=== PATIENT | male | born 1945 | race Caucasian/White ===

== ENCOUNTER 2024-11-08 13:56 | Emergency (ER) | payer MEDICARE, SELFPAY ==
--- NOTE | 2024-11-08 14:00 | CT_ITS ---
PROCEDURE: BRAIN/HEAD WITHOUT CONTRAST 11/08/2024 REASON FOR EXAM: TRAUMA TECHNIQUE: BRAIN/HEAD WITHOUT CONTRAST Coronal and Sagittal reconstruction series were provided. One or more dose reduction techniques were used (e.g., Automated exposure control, adjustment of the mA and/or kV according to patient size, use of iterative reconstruction technique. RADIATION DOSE SUMMARY: DLP: 847 mGycm COMPARISON: None FINDINGS: There is no acute infarct, intracranial hemorrhage, or mass effect. There is no hydrocephalus or significant midline shift. There is mild chronic microvascular ischemic changes and mild parenchymal volume loss. No acute, depressed calvarial fractures. Mild right anterior frontal scalp contusion. CT/Brain/Head without Contrast IMPRESSION: No acute intracranial process. Reading Location: [id number]
[2024-11-08 14:03] VITALS: BP 140/62; PULSE 55; RESP 16; TEMP 36.5; O2SAT 98
[2024-11-08 14:45] VITALS: BP 128/68; PULSE 55; RESP 18; O2SAT 100
[2024-11-08 15:02] VITALS: BP 127/62; PULSE 53; RESP 16; O2SAT 99
[2024-11-08 16:00] VITALS: BP 146/74
--- OUTSIDE RECORDS SUMMARY | 2024-11-08 16:00 | XMS RPT_ITS | CCD ---
Author Organization [facility] ion [facility] Care Team Providers Care Objective C Developer Name Role Phone Unavailable Primary Care Provider Unavailabl e Fidencio DO, [facility] Stevenson Primary Care Provid er Fidencio DO, [facility] Primary Care Provider [facility] Provid er Fidencio DO, [facility] Primary Care Provid er Fidencio DO, Eric Stevenson Unavailable [facility] UCON STEVENSON Referring Unavai labmele NICOLAS, UCON STEVENSON Primary Care Unavai lable Fidencio DO, [facility] Stevenson Primary Care Provid er Fidencio DO, [facility] Primary Care Provider [phone] [facility] Primary Care Provider Mark Albarran Primary Care Provider [facility] Primary Care Provider GUSTAVO AZAR Attending Unavailable MARK ALBARRAN Primary Care Unavailable [facility] Primary Care Unavailable GUSTAVO AZAR Referring Unavailable LORETTA JOHNSON Admitting Unavailable LORETTA JOHNSON Attending Unavailable TEMITOPE ARREOLA Consulting Unavailable WERO SANCHEZ Consulting Unavailable GUSTAVO AZAR Attending Unavailable GUSTAVO AZAR Referring Unavailable MARK ALBARRAN Primary Care Unavailable [facility] ERIC Attending Unavailable [facility] Referring Unavailable [facility] UCON Primary Care Unavailable MARLENE VEGA Attending Unavailable [facility] Primary Care Unavailable MICHAEL MINOR Attending Unavailable [facility] Unavailable MICHAEL MINOR Attending Unavailable [facility] Unavailable MARLENE VEGA Attending Unavailable MARK ALBARRAN Primary Care Unavailable [facility] STEVENSON Attending [facility] Oskar NICOLAS UCON STEVENSON Attending Oskar NICOLAS [facility] STEVENSON Primary Care Oskar priest Allergies Allergy Classification Reported Allergen(s) Allergy Type Date of Onset Reaction(s) Facility Bee pollen (3 sources) Bee pollen Drug Allergy 9 [facility] (20 sources) Bee pollen; Translations: [BEE POLLEN] Drug Allergy 9 [facility] Work Phone: (20 sources) Venom-Honey Bee; Translations: [VENOM-HONEY BEE] Drug Allergy 9 [facility] Work Phone: (20 sources) Covid-19 Vacc,Mrna(Pfize r)(Pf); Translations: [COVID-19 VACC,MRNA(PFIZE R)(PF)] Drug Intolerance 2 Intolerance, Myalgia [facility] (8 sources) Bee pollen Allergy to substance 9 [facility] Medications Current Medications Medication Drug Class(es) Dates Sig (Normalized) Sig (Original) acetaminophen 500 mg oral tablet (19 sources) Start: 01-31-2024 End: 02-10-2024 take 1000 mg by mouth every eight hours Start: 01-23-2024 End: 01-31-2024 take 1 tablet by mouth every eight hours Start: 01-18-2024 take 1 tablet by mk th every six hours as needed for pain acetaminophen (Tylenol) tablet 650 mg acetaminophen (T YLENOL ORAL) Take by mouth. 2 po q 8 hours Active amiodarone hydrochloride 200 mg oral tablet (20 sources) Antiarrhythmic Start: 01-28-2024 End: 11-06-2024 take 1 tablet by mouth once daily amiodarone (PACERONE) 200 mg tablet Take 1 tablet by mouth once daily. 30 tablet 08/08/2024 Active Start: 01-27-2024 End: 01-28-2024 Start: 01-26-2024 End: 01-27-2024 Start: 01-25-2024 End: 01-25-2024 Start: 01-25-2024 End: 01-25-2024 amLODIPine 5 mg oral tablet (20 sources) Dihydropyridine [address] Start: 09-08-2024 End: 09-08-2025 take 0.5 tablet by mouth once daily amLODIPine (NORVASC) 5 mg tablet Indications: Benign essential hypertension Take 0.5 tablets by mouth once daily. 45 tablet 3 09/08/2024 09/08/2025 Active Start: 01-29-2024 End: 01-31-2025 take 1 tablet by mouth once daily amLODIPine (NORVASC) 2.5 mg tablet Take 1 tablet by mouth once daily. 30 tablet 08/08/2024 Active Start: 01-24-2024 End: 01-26-2024 Start: 06-28-2020 End: 08-08-2024 take 1 tablet by mouth once daily amLODIPine (NORVASC) 5 mg tablet Indications: Benign essential hypertension Take 1 tablet by mouth once daily. 90 tablet 3 05/15/2023 08/08/2024 Discontinued (Course of therapy completed) take 1 tablet by mk th once daily amLODIPine (NORVASC) 5 MG tablet amlodipine 5 mg tablet TAKE 1 TABLET BY MOUTH EVERY DAY 0 Active Comment on above: Take 1 tablet by mk th once daily. aspirin 81 mg chewable tablet (20 sources) Platelet Aggregation Inhibitor, Nonsteroidal Anti-inflammatory Drug Start: 09-02-2024 End: 09-02-2025 aspirin 81 MG chewable tablet Chew 1 tablet (81 mg) daily. 09/02/2024 09/02/2025 Active Start: 01-17-2024 End: 01-29-2024 Start: 01-17-2024 End: 01-17-2024 take 324 mg by mouth once 324 mg, Oral, Once, On [place] at 2345, For 1 dose End: 11-13-2022 take 1 tablet by mouth once daily aspirin, enteric coa jose (ASPIRIN, ENTERIC COATED) 81 mg EC tablet Take 81 mg by mouth once daily. Active take 1 tablet by mouth once tan y aspirin 81 MG tablet Take 81 mg by mouth daily 0 Active Comment on above: Take 81 mg by mouth. clopidogrel 75 mg oral tablet (20 sources) [id number] Platelet Inhibitor Start: End: take 1 tablet by mouth once daily clopidogrel (PLAVIX) 75 mg tablet Take 1 tablet by mouth once daily. 30 tablet 08/08/2024 Active gabapentin 400 mg oral capsule (20 sources) Anti-epileptic Agent Start: End: take 1 capsule by mouth twice daily gabapentin (NEURONTIN) 400 mg capsule Take 1 capsule by mouth two times a day for 30 days. 60 capsule 08/08/2024 Active Start: 01-19-2024 take 200 mg by mouth once 200 mg, Oral, Once, On 01/19/24 at 0030, For 1 dose Start: 01-19-2024 Start: 01-19-2024 take 100 mg by mouth once 100 mg, Oral, Once, On 01/19/24 at 0015, For 1 dose Start: 12-18-2023 End: 01-31-2024 Start: 12-11-2022 End: 08-08-2024 take 2 capsules by mouth twice daily gabapentin (Neurontin) 300 MG capsule Take 600 mg by mouth 2 times daily. 12/18/2023 Active Start: 07-13-2020 End: 04-05-2023 take 1 capsule by mouth in the morning, then take 1 capsule by mouth at lunch, then take 2 capsules by mouth in the evening gabapentin (NEURONTIN) 300 mg capsule TAKE 1 CAPSULE IN THE MORNING , 1 CAPSULE AT LUNCH , AND 2 CAPSULES BY MOUTH IN THE EVENING 360 capsule 1 06/26/2022 04/05/2023 Active Start: 06-28-2020 End: 09-26-2020 gabapentin (NEURONTIN) 300 m g capsule Take 4 capsules by mouth once daily for 90 days. One PO in AM, one at noon, two PO in PM, and 1 every day PRN 360 capsule 3 06/28/2020 07/13/2020 Discontinued Start: 11-27-2018 gabapentin (NE URONTIN) 300 MG capsule Comment on above: Take 4 capsules by m outh once daily for 90 days. One PO in AM, one at noon, two PO in PM, and 1 every day PRN TAKE 1 CAPSULE IN MORNING , ONE CAPSULE AT LUNCH , AND 2 CAPSULES BY MOUTH IN THE EVENING One am one lunch 2 e vening TAKE 1 CAPSULE IN TH E MORNING , 1 CAPSULE AT LUNCH , AND 2 CAPSULES BY MOUTH IN THE EVENING TAKE 2 CAPSULES IN T HE MORNING AND 2 CAPSULES BY MOUTH IN THE EVENING 24 hr glycine 25 mg / isoleucine 50 mg / ubidecarenone 100 mg extended release oral tablet (1 source) [id number] eucine -Glycine (CO Q-10) 100-50-25 MG TB24 Take by mouth 0 Active levothyroxine sodium 0.1 mg oral tablet (20 sources) l-Thyroxine Start: End: take 1 tablet by mouth once daily levothyroxine (SYNTHROID) 100 mcg tablet Indications: Acquired hypothyroidism Take 1 tablet by mouth once daily. 30 tablet 08/08/2024 Active Start: 01-06-2019 levothyroxine (SYNTHROID) 100 MCG tablet Comment on above: Take 1 tablet by mk th once daily. loratadine 10 mg oral tablet (17 sources) Start: 08-08-2024 End: 11-06-2024 take 1 tablet by mouth once daily loratadine (CLARITIN) 10 mg tablet Take 1 tablet by mouth once daily. 90 tablet 08/08/2024 11/06/2024 Active metoprolol tartrate 25 mg oral tablet (20 sources) beta-Adrenergic Rd Start: 01-31-2024 End: 08-08-2024 metoprolol tartrate, short acting, (LOPRESSOR) 25 mg tablet Take 12.5 mg by mouth two times a day. 01/31/2024 08/08/2024 Discontinued Start: 01-25-2024 Start: 01-25-2024 Start: 01-25-2024 End: 01-30-2025 take 0.5 tablet by mouth twice daily metoprolol tartrate, short acting, (LOPRESSOR) 25 mg tablet Take 0.5 tablets by mouth two times a day. 30 tablet 08/08/2024 Active Start: 01-18-2024 End: 01-23-2024 Start: 06-28-2020 End: 08-08-2024 take 1 tablet by mouth once daily metoprolol succinate ER (TOPROL XL) 100 mg Indications: Benign essential hypertension Take 1 tablet by mouth once daily. 90 tablet 3 05/15/2023 08/08/2024 Discontinued (Course of therapy completed) Start: 01-06-2019 metoprolol suc cinate (TOPROL XL) 100 MG extended release tablet Comment on above: Take 1 tablet by mk th once daily. nirmatrelvir tablet 300 mg (150 mg x 2) and ritonavir tablet 100 mg in a dose pack (PAXLOVID) (3 sources) Start: 09-11-2023 End: 09-16-2023 nirmatrelvir tablet 300 mg (150 mg x 2) and ritonavir tablet 100 mg in a dose pack (PAXLOVID) Administer TWO pink nirmatrelvir 150 mg tablets and ONE white ritonavir 100 mg tablet for a total of three tablets twice daily. 30 tablet 0 09/11/2023 09/16/2023 Active Start: 09-11-2023 End: 09-11-2023 nirmatrelvir tablet 300 mg ( 150 mg x 2) and ritonavir tablet 100 mg in a dose pack (PAXLOVID) Administer TWO pink nirmatrelvir 150 mg tablets and ONE white ritonavir 100 mg tablet for a total of three tablets twice daily. 30 tablet 0 09/11/2023 09/11/2023 Discontinued Comment on above: Administer TWO pink nirmatrelvir 150 mg tablets and ONE white ritonavir 100 mg tablet for a total of three tablets twice daily. omega-3 acid ethyl esters (group home) 1000 mg oral capsule (1 source) [place]-3 1000 MG CAPS Take by mouth 0 Active ondansetron ODT (Zofran-ODT) disintegrating tablet 4 mg (2 sources) Start: take 1 tablet by mouth every eight hours as needed for nausea and vomiting ondansetron ODT (Zofran-ODT) disintegrating tablet 4 mg oxyCODONE hydrochloride 5 mg oral tablet (2 sources) Opioid Agonist Start: End: pantoprazole 40 mg delayed release oral tablet (20 sources) Proton Pump Inhibitor Start: End: take 1 tablet by mouth once daily pantoprazole DR (PROTONIX) 40 mg tablet Take 1 tablet by mouth once daily. 30 tablet 08/08/2024 Active Start: 01-24-2024 End: 01-24-2024 Start: 01-19-2024 pantoprazole ( ProtoNix) EC tablet 40 mg rosuvastatin calcium 40 mg oral tablet (20 sources) HMG-CoA Reductase Inhibitor Start: 02-01-2024 End: 01-31-2025 take 1 tablet by mouth once daily rosuvastatin (CRESTOR) 40 mg tablet Take 1 tablet by mouth once daily. 30 tablet 08/08/2024 Active Start: 01-24-2024 End: 01-31-2024 Start: 09-26-2013 take 1 tablet by mk th once daily rosuvastatin (CRESTOR) 10 MG tablet Crestor 10 mg tablet Take 1 tablet every day by oral route for 90 days. 0 09/26/2013 Active Completed/Discontinued Medications Medication Drug Class(es) Dates Sig (Normalized) Sig (Original) acetaminophen 325 mg / HYDROcodone bitartrate 7.5 mg oral tablet (2 sources) Opioid Agonist Start: 05-09-2021 End: 05-16-2021 take 1 tablet by mouth every six hours as needed for pain HYDROcodone-Acetami nophen (NORCO) 7.5-325 mg per tablet Indications: Cervical radiculopathy Take 1 tablet by mouth every 6 hours as needed for pain for up to 7 days. 28 tablet 0 05/09/2021 05/16/2021 Start: 04-25-2021 End: 05-02-2021 take 1 tablet by mouth every six hours as needed for pain HYDROcodone-Acetaminophen (NORCO) 7.5-32 5 mg per tablet Indications: Cervical radiculopathy Take 1 tablet by mouth every 6 hours as needed for pain for up to 7 days. 28 tablet 0 04/25/2021 05/02/2021 Comment on above: Take 1 tablet by mk th every 6 hours as needed for pain for up to 7 days. 20 ml albumin human, group home 250 mg/ml injection (8 sources) Human Serum Albumin Start: 01-23-2024 End: 01-23-2024 Start: 01-23-2024 End: 01-24-2024 albuterol 0.833 mg/ml / ipratropium bromide 0.167 mg/ml inhalation solution (2 sources) Anticholinergic, beta2-Adrenergic Agonist Start: 01-23-2024 End: 01-31-2024 apixaban 5 mg oral tablet (14 sources) Factor Xa Inhibitor Start: 01-29-2024 End: 09-02-2024 take 1 tablet by mouth twice daily apixaban (Eliquis) 5 MG tablet Take 1 tablet (5 mg) by mouth 2 times daily. 0 01/31/2024 09/02/2024 Discontinued (Therapy completed) aspirin 81 mg / calcium carbonate 777 mg oral tablet (5 sources) Platelet Aggregation Inhibitor, Nonsteroidal Anti-inflammatory Drug End: 12-28-2020 aspirin-calcium carbonate 81 mg-300 mg calcium(777 mg) tab Take 81 mg by mouth. 0 12/28/2020 Discontinued (Course of therapy completed) Comment on above: Take 81 mg by mouth. atorvastatin 80 mg oral tablet (4 sources) HMG-CoA Reductase Inhibitor Start: 01-18-2024 End: 01-23-2024 calcium chloride 0.0014 meq/ml / potassium chloride 0.004 meq/ml / sodium chloride 0.103 meq/ml / sodium lactate 0.028 meq/ml injectable solution (4 sources) Start: 01-23-2024 End: 01-26-2024 100 ml calcium gluconate 20 mg/ml injection (2 sources) Start: 01-23-2024 End: 01-31-2024 castor oil 0.788 mg/mg / mexican balsam 0.087 mg/mg topical ointment (3 sources) Standardized Chemical Allergen End: 04-28-2024 Balsam Brady-Calvin Oil (Venelex) ointment Apply topically every 12 hours. 04/28/2024 Discontinued (Med list cleanup) ceFAZolin 2000 mg injection (2 sources) Cephalosporin Antibacterial Start: 01-23-2024 End: 01-25-2024 take 2000 mg intravenously every eight hours chlorhexidine gluconate 1.2 mg/ml mouthwash (4 sources) Start: 01-22-2024 End: 01-26-2024 cholecalciferol 0.125 mg oral tablet (20 sources) Vitamin D End: 08-08-2024 take 1 tablet by mouth once daily cholecalciferol (VITAMIN D3) 5,000 unit tab Take 5,000 Units by mouth once daily. 08/08/2024 Discontinued (Course of therapy completed) Cholecalciferol (VITAMIN D3) 2000 units CAPS Take by mouth 0 Active Comment on above: Take 5,000 Units by mouth once daily. cholecalciferol 9.52 unt/ml / glucose 357 mg/ml oral gel (2 sources) Vitamin D Start: 01-23-2024 End: 01-31-2024 ubidecarenone 10 mg oral capsule (20 sources) End: 11-13-2022 ubidecarenone Q-10 (COENZYME Q-10) 10 mg cap Take 100 mg by mouth once daily. 0 11/13/2022 Discontinued (Course of therapy completed) ubidecarenone Q- 10 (COENZYME Q-10) 10 mg cap Take by mouth. 0 Active Comment on above: Take by mouth. Take 100 mg by mouth once daily. cyclobenzaprine hydrochloride 5 mg oral tablet (18 sources) Muscle Relaxant Start: 03-29-20 End: 09-03-19 take 1 tablet by mouth three times daily as needed for muscle spasms cyclobenzaprine (Flexeril) 5 MG tablet Take 5 mg by mouth 3 times daily as needed for muscle spasms. 03/29/2024 09/02/2024 Discontinued (Med list cleanup) End: 07-14-2021 take 1 tablet by mouth three times daily as needed cyclobenzaprine (FLEXERIL) 10 mg tablet cyclobenzaprine 10 mg tablet TAKE 1 TABLET BY MOUTH THREE TIMES A DAY NEEDED NOT COVERED 0 07/14/2021 Discontinued (Course of therapy completed) Comment on above: cyclobenzaprine 10 m g tablet TAKE 1 TABLET BY MOUTH THREE TIMES A DAY NEEDED NOT COVERED docosahexaenoic acid 120 mg / eicosapentaenoic acid 180 mg oral capsule (4 sources) End: docusate sodium 50 mg / sennosides, group home 8.6 mg oral tablet (4 sources) Start: End: fluticasone propionate 0.05 mg/actuat metered dose nasal spray (5 sources) Corticosteroid End: fluticasone (FLONASE) 50 mcg/actuation nasal spray fluticasone propionate 50 mcg/actuation nasal spray,suspension 0 12/28/2020 Discontinued (Course of therapy completed) Comment on above: fluticasone propiona te 50 mcg/actuation nasal spray,suspension 2 ml furosemide 10 mg/ml injection (8 sources) Loop Diuretic Start: End: glimepiride 1 mg oral tablet (14 sources) Sulfonylurea Start: End: take 1 tablet by mouth once daily at dinner glimepiride (AMARYL) 1 mg tablet Indications: Type 2 diabetes mellitus with diabetic neuropathy, without long-term current use of insulin (HCC) TAKE 1 TABLET BY MOUTH ONCE A DAY WITH DINNER 90 tablet 3 09/19/2022 12/13/2023 Discontinued (Course of therapy completed) Start: 07-21-2021 End: 10-19-2021 take 1 tablet by mouth once daily at dinner glimepiride (AMARYL) 1 mg tablet Indications: Type 2 diabetes mellitus with diabetic neuropathy, without long-term current use of insulin (HCC) Take 1 tablet by mouth daily with dinner. 90 tablet 3 07/21/2021 Active Comment on above: Take 1 tablet by mk th daily with dinner. TAKE 1 TABLET BY MK TH ONCE A DAY WITH DINNER glipiZIDE er 2.5 mg 24 hr extended release oral tablet (15 sources) Sulfonylurea Start: 0 End: 2 take 1 tablet by mouth once daily glipiZIDE (GLUCOTROL XL) 2.5 mg 24 hr tablet Indications: Type 2 diabetes mellitus with diabetic neuropathy, without long-term current use of insulin (HCC) Take 1 tablet by mouth once daily. 90 tablet 3 06/28/2020 07/14/2021 Discontinued (Course of therapy completed) Start: 01-22-2020 End: 04-27-2020 glipiZIDE (GLUCOTROL XL) 2.5 mg 24 hr tablet Start: 11-27-2018 glipiZIDE (GLU COTROL) 5 MG tablet Comment on above: Take 1 tablet by mk th once daily. glucagon (rdna) 1 mg injection (2 sources) Antihypoglycemic Agent Start: 01-23-2024 End: 01-31-2024 150 ml glucose 50 mg/ml injection (4 sources) Start: 01-23-2024 End: 01-31-2024 Start: 01-23-2024 End: 01-31-2024 0.5 ml heparin sodium, porcine 35194 unt/ml prefilled syringe (20 sources) Unfractionated Heparin, Anti-coagulant Start: 01-24-2024 End: 01-29-2024 Start: 01-18-2024 End: 01-23-2024 Start: 01-18-2024 End: 01-18-2024 4,000 Units, IntraVENous, On ce, On Sun01/18/24 at 0035, For 1 dose, Initial one time bolus Start: 01-18-2024 2,000 Units, I ntraVENous, As needed, heparin dosing algorithm, Starting on Sun01/18/24 at 1459, Half dose re-bolus based on pharmacy algorithm Start: 01-18-2024 End: 01-23-2024 Start: 01-18-2024 End: 01-18-2024 5-30 Units/kg/hr 81.6 kg (4. 08-24.48 mL/hr, rounded to 4.1-24.5 mL/hr), IntraVENous, Continuous, Starting on Sun01/18/24 at 1515, LOW Dose Heparin Weight Based Dosing (CAD/STEMI/NSTEMI/AFIB/ECMO) >>>>Initial dose: 12 units/kg/hr 95.9 Hold heparin for 60 min Decrease infusion by 2 units/kg/hr - notify prescriber; Check aPTT: 6 hours after initiation and 6 hours after every dose change - every 12 hrs x 1 day after 2 consecutive therapeutic aPTT - daily after every 12 hrs x 1 day is complete. 1 ml hydrALAZINE hydrochlori de 20 mg/ml injection (4 sources) Arteriolar Vasodilator Start: 01-18-2024 End: 01-18-2024 Start: 01-18-2024 End: 01-18-2024 10 mg, IntraVENous, Once, On Sun01/18/24 at 0035, For 1 dose 1 ml HYDROmorphone hydrochlo ride 1 mg/ml cartridge (2 sources) Opioid Agonist Start: 01-23-2024 End: 01-23-2024 Start: 01-23-2024 End: 01-23-2024 ibuprofen 200 mg oral capsule (8 sources) Nonsteroidal Anti-inflammatory Drug End: 07-14-2021 Ibuprofen 200 mg cap Take by mouth every 6 hours as needed. 0 07/14/2021 Discontinued (Course of therapy completed) Comment on above: Take by mouth every 6 hours as needed. insulin glargine 100 unt/ml injectable solution (9 sources) Insulin Analog Start: 01-24-2024 End: 01-30-2025 inject 10 [IU] by subcutaneous injection every twenty-four hours insulin glargine (Lantus) 100 UNIT/ML injection Inject 10 Units under the skin Every 24 hours. 0 01/31/2024 04/28/2024 Discontinued (Med list cleanup) insulin lispro 100 unt/ml injectable solution (9 sources) Insulin Analog Start: 01-31-2024 End: 01-30-2025 Insulin Lispro (Humalog) 100 UNIT/ML solution injection Inject 0-6 Units under the skin 3 times daily (with meals). 0 01/31/2024 04/28/2024 Discontinued (Med list cleanup) Start: 01-24-2024 End: 01-30-2025 100 ml insulin, regular, hum an 1 unt/ml injection (2 sources) Insulin Start: 01-23-2024 End: 01-24-2024 lidocaine 0.04 mg/mg medicat ed patch (8 sources) Antiarrhythmic, Amide Local Anesthetic Start: 01-23-2024 End: 01-31-2024 End: 09-02-2024 apply 1 dose transdermal route once daily lidocaine (Lidoderm) 5 % patch Apply 1 patch topically daily. 09/02/2024 Discontinued (Med list cleanup) magnesium hydroxide 80 mg/ml oral suspension (2 sources) Start: 01-23-2024 End: 01-31-2024 take 30 mL by mouth every twenty-four hours as needed for constipation 50 ml magnesium sulfate 40 mg/ml injection (2 sources) Start: 01-21-2024 End: 01-21-2024 melatonin 3 mg oral tablet (2 sources) Start: 01-27-2024 End: 01-31-2024 meloxicam 15 mg oral tablet (20 sources) Nonsteroidal Anti-inflammatory Drug Start: 01-09-2022 End: 12-13-2023 meloxicam (MOBIC) 15 mg tablet Start: 12-07-2020 End: 08-24-2021 take 1 tablet by mouth once daily meloxicam (MOBIC) 15 mg tablet Take 1 tablet by mouth once daily. 90 tablet 3 05/26/2021 08/24/2021 Active Start: 06-28-2020 End: 09-26-2020 take 1 tablet by mouth once daily meloxicam (MOBIC) 15 mg tablet Indications: Arthritis Take 1 tablet by mouth once daily. 90 tablet 3 06/28/2020 09/26/2020 Start: 11-27-2018 meloxicam (MOB IC) 15 MG tablet Comment on above: Take 1 tablet by mk th once daily. Take 15 mg by mouth once daily. MEN'S MULTI-VITAMIN ORAL (8 sources) End: 07-14-2021 MEN'S MULTI-VITAMIN ORAL Take by mouth. 0 07/14/2021 Discontinued (Course of therapy completed) MEN'S MULTI-KULWANT MIN ORAL Take by mouth. 0 Active Comment on above: Take by mouth. metFORMIN hydrochloride 1000 mg oral tablet (20 sources) Biguanide Start: 0 End: take 1 tablet by mouth once daily at breakfast metFORMIN (GLUCOPHAGE) 1,000 mg tablet Indications: Type 2 diabetes mellitus with diabetic neuropathy, without long-term current use of insulin (HCC) Take 1 tablet by mouth daily with breakfast. 90 tablet 3 06/26/2022 12/13/2023 Discontinued (Course of therapy completed) Start: 01-22-2020 End: 04-27-2020 metFORMIN (GLUCOPHAGE) 1,000 mg tablet Start: 01-06-2019 metFORMIN (GLU COPHAGE) 1000 MG tablet Comment on above: Take 1 tablet by mk th daily with breakfast. 2 ml metoclopramide 5 mg/ml prefilled syringe (4 sources) Dopamine-2 Receptor Antagonist Start: 01-24-2024 End: 01-28-2024 take 5 mg intravenously every six hours mupirocin 0.02 mg/mg topical ointment (4 sources) RNA Synthetase Inhibitor Antibacterial Start: 01-23-2024 End: 01-26-2024 Start: 01-22-2024 End: 01-22-2024 1 ml naloxone hydrochloride 0.4 mg/ml injection (2 sources) Opioid Antagonist Start: 01-23-2024 End: 01-31-2024 250 ml nitroglycerin 0.2 mg/ ml injection (6 sources) Nitrate Vasodilator Start: 01-23-2024 End: 01-24-2024 Start: 01-18-2024 End: 01-19-2024 Start: 01-18-2024 5-200 mcg/min (1.5-60 mL/hr), IntraVENous, Continuous, Starting on Sun01/18/24 at 2245, If Titrate Infusion? is No: Disregard instructions below. If Titrate infusion? is Yes: If rate LESS than 20 mcg/min: Titrate by 5 mcg/min no faster than every 5 minutes to goal. If rate GREATER than or equal to 20 mcg/min: Titrate by 10 mcg/min no faster than every 5 minutes to goal., Titrate Infusion? Yes, Initial Infusion Dose: 20 mcg/min, Goal of Therapy is: Other, Other Goal: SBP 120 - 140, Contact Provider if: SBP less than 90 mmHg norepinephrine (Levophed) 16 mg in 0.9% sodium chloride 250 mL infusion (weight based) (premix) (2 sources) Start: 01-23-2024 End: 01-24-2024 omega 3,6,9 combination no.7 92 mg (43 mg-22 [id number]) chew (20 sources) End: 11-13-2022 omega 3,6,9 combination no.7 92 mg (43 mg-22 [id number]) chew Take by mouth. 0 11/13/2022 Discontinued (Course of therapy completed) omega 3,6,9 comb ination no.7 92 mg (43 mg-22 [id number]) chew Take by mouth. 0 Active Comment on above: Take by mouth. omega-3/dha/epa/fish oil (OMEGA-3 FISH OIL ORAL) (3 sources) End: 08-08-2024 omega-3/dha/epa/fish oil (OMEGA-3 FISH OIL ORAL) Take by mouth. 08/08/2024 Discontinued (Course of therapy completed) omega-3/dha/epa/ fish oil (OMEGA-3 FISH OIL ORAL) Take by mouth. 0 Active perflutren protein A microsphere (Optison) 3 mL in sodium chloride (PF) 0.9 % 10 mL IV syringe (2 sources) Start: 01-18-2024 End: 08-23-2024 0-10 mL, IntraVENous, IMG once PRN, other, Suboptimal echo image, Starting on Sun01/18/24 at 0855, For 1 dose, CV Procedural Medications, Administer via slow IVP for suboptimal echocardiogram enhancement. May administer as divided doses to reach optimal image enhancement polyethylene glycol 3350 [id number] mg powder for oral solution (4 sources) Osmotic Laxative Start: 01-23-2024 End: 01-31-2024 Start: 01-18-2024 take 17 g by mouth e very twenty-four hours as needed for constipation potassium chloride 20 meq po wder for oral solution (4 sources) Start: 01-28-2024 End: 01-28-2024 Start: 01-28-2024 End: 01-28-2024 Start: 01-24-2024 End: 01-30-2024 predniSONE 10 mg oral tablet (7 sources) Start: 04-25-2021 End: 07-14-2021 predniSONE (DELTASONE) 10 mg tablet Indications: Cervical radiculopathy Take 3 tablets by mouth for 3 days, then take 2 tablets by mouth for 3 days, then take 1 tablet by mouth for 3 days. 18 tablet 0 04/25/2021 07/14/2021 Discontinued (Course of therapy completed) Comment on above: Take 3 tablets by [facility] for 3 days, then take 2 tablets by mouth for 3 days, then take 1 tablet by mouth for 3 days. 100 ml propofol 10 mg/ml injection (2 sources) General Anesthetic Start: 01-23-2024 End: 01-24-2024 simethicone 80 mg chewable tablet (2 sources) Start: 01-24-2024 End: 01-30-2024 10 ml sodium bicarbonate 84 mg/ml injection (2 sources) Start: 01-25-2024 End: 01-25-2024 5 ml sodium chloride 9 mg/ml injection (20 sources) Start: 01-23-2024 End: 01-26-2024 Start: 01-23-2024 End: 01-28-2024 take 5-40 mL intraluminal route every eight hours Start: 01-23-2024 End: 01-31-2024 Start: 01-23-2024 End: 01-31-2024 Start: 01-20-2024 End: 01-21-2024 Start: 01-18-2024 End: 01-18-2024 Start: 01-18-2024 End: 01-19-2024 vitamin b12 0.1 mg oral tablet (20 sources) Vitamin B12 End: 12-13-2023 cyanocobalamin (VITAMIN B-12) 100 mcg tab Take 50 mcg by mouth. 0 12/13/2023 Discontinued (Course of therapy completed) Comment on above: Take 50 mcg by mouth. vitamin b6 100 mg oral tablet (20 sources) End: 11-13-2022 take 1 tablet by mouth once daily pyridoxine, vitamin B6, (VITAMIN B6) 100 mg tablet Take 100 mg by mouth once daily. 0 11/13/2022 Discontinued (Course of therapy completed) Comment on above: Take 100 mg by mouth once daily. (8 sources) Start: 01-28-2024 End: 01-31-2024 take 5 mg by mouth every six hours as needed for pain [Order 1 Start] Name: oxyCODONE (Roxicodone) immediate release tablet 5 mg Signed Summary: 5 mg, Oral, Every 6 hours PRN, moderate pain (4-6), Starting on Sun01/28/24 at 1126 [Order 1 End] [Order 2 Start] Name: oxyCODONE (Roxicodone) immediate release tablet 10 mg Signed Summary: 10 mg, Oral, Every 6 hours PRN, severe pain (7-10), Starting on Sun01/28/24 at 1126 [Order 2 End] Start: 01-23-2024 End: 01-28-2024 take 5 mg by mouth every four hours as needed for pain Start: 01-23-2024 End: 01-31-2024 [Order 1 Start] Name: magnes ium sulfate IVPB premix 2,000 mg Signed Summary: 2,000 mg, IntraVENous, at 25 mL/hr, Administer over 2 Hours, As needed, Per Magnesium Replacement Protocol, Starting on Sun01/23/24 at 1433, Recovery & On Unit, Mg Lab Replacement Action 1.4-1.6 2 gram IVPB x 1 doses 1.0-1.3 4 gram IVPB x 1 doses Less than 1.0 CALL PHYSICIAN and 4 gram IVPB x 1 doses Infuse at 1 gram/hr. Repeat Mag level next AM. Not for use in Patients with CrCl less than 30 mL/min. [Order 1 End] [Order 2 Start] Name: magnesium sulfate IVPB 4,000 mg Signed Summary: 4,000 mg, IntraVENous, at 25 mL/hr, Administer over 4 Hours, As needed, Per Magnesium Replacement Protocol, Starting on Sun01/23/24 at 1433, Recovery & On Unit, Mg Lab Replacement Action 1.4-1.6 2 gram IVPB x 1 doses 1.0-1.3 4 gram IVPB x 1 doses Less than 1.0 CALL PHYSICIAN and 4 gram IVPB x 1 doses Infuse at 1 gram/hr. Repeat Mag level next AM. Not for use in Patients with CrCl less than 30 mL/min. [Order 2 End] Start: 01-18-2024 End: 01-18-2024 (2 sources) Start: 01-23-2024 End: 01-23-2024 Problems Active Problems Problem Classification Problem Date Documented Da te Episodic/Chronic Acute myocardial infarction (20 sources) Myocardial infarction; Translations: [Non-ST elevation (NSTEMI) myocardial infarction] Onset: 01-17-2024 01-18-2024 Chronic Cardiac dysrhythmias (11 sources) Paroxysmal atrial fibrillation; Translations: [Paroxysmal atrial fibrillation] Onset: 03-05-2024 04-28-2024 Chronic Chronic kidney disease (20 sources) Chronic kidney disease stage 3B ; Translations: [Stage 3b chronic kidney disease (HCC)] Onset: 01-18-2024 Chronic Chronic kidney disease (3 sources) Chronic kidney disease; Translations: [Chronic kidney disease, stage 3a (HCC)] Onset: 01-18-2024 Coronary atherosclerosis and other heart disease (20 sources) Coronary arteriosclerosis; Translations: [Atherosclerotic heart disease of [place] coronary artery with unstable angina pectoris] Onset: 01-18-2024 01-18-2024 Chronic Diabetes mellitus with complications (6 sources) Neuropathy due to type 2 diabetes mellitus; Translations: [Type 2 diabetes mellitus with diabetic neuropathy, unspecified] Onset: 08-08-2024 06-28-2020 Chronic Diabetes mellitus without complication (20 sources) Type 2 diabetes mellitus; Translations: [Type 2 diabetes mellitus with diabetic neuropathy, unspecified] Onset: 04-24-2022 06-28-2020 Chronic Diabetes mellitus without complication (1 source) Diabetes mellitus without complication; Translations: [Type 2 diabetes mellitus with stage 3 chronic kidney disease, without long-term current use of insulin, unspecified whether stage 3a or 3b CKD (HCC)] Onset: 08-08-2024 Disorders of lipid metabolism (20 sources) Mixed hyperlipidemia; Translations: [Mixed hyperlipidemia] Onset: 06-28-2020 06-28-2020 Chronic Essential hypertension (20 sources) Benign essential hypertension; Translations: [Essential (primary) hypertension] Onset: 06-28-2020 06-28-2020 Chronic Immunizations and screening for infectious disease (1 source) Viral screening status; Translations: [Encounter for screening for other viral diseases] Episodic Osteoarthritis (20 sources) Arthritis; Translations: [Unspecified osteoarthritis, unspecified site] Onset: 12-13-2023 06-28-2020 Chronic Other connective tissue disease (2 sources) Pain in bilateral legs; Translations: [Pain in right leg] 08-08-2024 Episodic Other connective tissue disease (5 sources) Pain in right lower limb; Translations: [Pain in right leg] Onset: 08-19-2024 08-19-2024 Episodic Other connective tissue disease (5 sources) Pain in left lower limb; Translations: [Pain in left leg] Onset: 08-19-2024 08-19-2024 Episodic Other connective tissue disease (2 sources) Pain in right leg; Translations: [Pain in right leg] Onset: 08-08-2024 Episodic Other connective tissue disease (2 sources) Pain in left leg; Translations: [Pain in left leg] Onset: 08-08-2024 Episodic Other nervous system disorders (1 source) Carpal tunnel syndrome of right wrist; Translations: [Carpal tunnel syndrome, right upper limb] Chronic Other nutritional; endocrine; and metabolic disorders (2 sources) Obese class I; Translations: [Obesity, unspecified] Chronic Other nutritional; endocrine; and metabolic disorders (2 sources) Obesity; Translations: [Obesity, unspecified] 12-13-2023 Chronic Other nutritional; endocrine; and metabolic disorders (1 source) Body mass index (BMI) 30.0-30.9, adult; Translations: [Class 1 obesity with body mass index (BMI) of 30.0 to 30.9 in adult, unspecified obesity type, unspecified whether serious comorbidity present] Onset: 08-08-2024 Chronic Other nutritional; endocrine; and metabolic disorders (1 source) Obesity, unspecified; Translations: [Class 1 obesity with body mass index (BMI) of 30.0 to 30.9 in adult, unspecified obesity type, unspecified whether serious comorbidity present] Onset: 12-13-2023 Chronic Peripheral and visceral atherosclerosis (8 sources) Peripheral vascular disease; Translations: [Peripheral vascular disease, unspecified] Onset: 08-19-2024 08-19-2024 Chronic Spondylosis; intervertebral disc disorders; other back problems (4 sources) Cervical radiculopathy; Translations: [Radiculopathy, cervical region] Episodic Thyroid disorders (20 sources) Hypothyroidism; Translations: [Hypothyroidism, unspecified] Onset: 06-28-2020 06-28-2020 Chronic Unclassified (2 sources) OPENED IN ERROR Unclassified (1 source) Class 1 obesity with body mass index (BMI) of 30.0 to 30.9 in adult, unspecified obesity type, unspecified whether serious comorbidity present; Translations: [Class 1 obesity with body mass index (BMI) of 30.0 to 30.9 in adult, unspecified obesity type, unspecified whether serious comorbidity present] Onset: 08-08-2024 Past or Other Problems Problem Classification Problem Date Documented Da te Episodic/Chronic Calculus of urinary tract (19 sources) Kidney stone; Translations: [Calculus of kidney] Onset: 04-24-2022 04-24-2022 Episodic Complications of surgical procedures or medical care (4 sources) Atrial fibrillation; Translations: [Other postprocedural complications and disorders of the circulatory system, not elsewhere classified] Onset: 03-05-2024 03-04-2024 Episodic Coronary atherosclerosis and other heart disease (2 sources) Presence of aortocoronary bypass graft; Translations: [Presence of aortocoronary bypass graft] Onset: 01-17-2024 Episodic Genitourinary symptoms and ill-defined conditions (20 sources) Microscopic hematuria; Translations: [Other microscopic hematuria] Onset: 01-09-2019 01-09-2019 Episodic Nutritional deficiencies (2 sources) Cobalamin deficiency; Translations: [Deficiency of other specified B group vitamins] Onset: 12-13-2023 12-13-2023 Episodic Other non-traumatic joint disorders (19 sources) Pain in right knee; Translations: [Pain in joint, lower leg] Onset: 04-24-2022 04-24-2022 Episodic Other screening for suspected conditions (not mental disorders or infectious disease) (20 sources) Patient encounter status; Translations: [Encounter for screening for malignant neoplasm of prostate] Onset: 12-28-2020 Episodic Otitis media and related conditions (19 sources) Perforation of left tympanic membrane; Translations: [Unspecified perforation of tympanic membrane, left ear] Onset: 06-10-2020 04-24-2022 Episodic Results Test Name Value Interpretation Reference Range Facility CBC (INCLUDES DIFF/PLT)on Basophils (Bld) [#/Vol] 0.063 10*3/uL Normal 0-200 [facility] Comment on above: Performed By: #### 1 7306, 68806, 6399, 1715 #### [facility] [place] [address] Medical Transcriptionist: Christiano Ness MD Basophils/100 WBC (Bld) 1.0 % Normal [facility] Comment on above: Performed By: #### 1 7306, 89822, 63, 1715 #### [facility] [place] [address] Medical Transcriptionist: Christiano Ness MD Eosinophils (Bld) [#/Vol] 0.12 10*3/uL Normal 15-500 [facility] Comment on above: Performed By: #### 1 7306, 98259, 6399, 1715 #### [facility] [place] [address] Medical Transcriptionist: Christiano Ness MD Eosinophils/100 WBC (Bld) 1.9 % Normal [facility] Comment on above: Performed By: #### 1 7306, 60963, 6399, 1715 #### [facility] [place] [address] Medical Transcriptionist: Christiano Ness MD Erythrocyte distribution width (RBC) [Ratio] 14.7 % Normal 11.0-15.0 [facility] Comment on above: Performed By: #### 1 7306, 82495, 6399, 1715 #### [facility] of [place] [address] Medical Transcriptionist: Christiano Ness MD Hematocrit (Bld) [Volume fraction] 40.9 % Normal 38.5-50.0 [facility] Comment on above: Performed By: #### 1 7306, 24447, 6399, 1715 #### [facility] of [address], [address] [place] [address] Medical Transcriptionist: Christiano Ness MD Hemoglobin (Bld) [Mass/Vol] 12.7 g/dL Low 13.2-17.1 [facility] Comment on above: Performed By: #### 1 7306, 06656, 6399, 1715 #### [facility] of [place] [address] Medical Transcriptionist: Christiano Ness MD Lymphocytes (Bld) [#/Vol] 2.898 10*3/uL Normal 850-3900 [facility] Comment on above: Performed By: #### 1 7306, 44235, 6399, 1715 #### [facility] of [place] [address] Medical Transcriptionist: Christiano Ness MD Lymphocytes/100 WBC (Bld) 46.0 % Normal [facility] Comment on above: Performed By: #### 1 7306, 46837, 6399, 1715 #### [facility] [place] [address] Medical Transcriptionist: Christiano Ness MD MCH (RBC) [Entitic mass] 27.5 pg Normal 27.0-33.0 [facility] Comment on above: Performed By: #### 1 7306, 59931, 6399, 1715 #### [facility] of [place] [address] Medical Transcriptionist: Christiano Ness MD MCHC (RBC) [Mass/Vol] 31.1 g/dL Low 32.0-36.[address] [facility] Comment on above: Result Comment: For adults, a slight decrease in the calculated MCHC value (in the range of 30 to 32 g/dL) is most likely not clinically significant; however, it should be interpreted with caution in correlation with other red cell parameters and the patient's clinical condition. Performed By: #### 1 73, , 6398, 1715 #### [facility] of [place] [address] Medical Transcriptionist: Christiano Ness MD MCV (RBC) [Entitic vol] 88.5 fL Normal 80.0-100.0 [facility] Comment on above: Performed By: #### 1 7306, , 6398, 1715 #### [facility] of [place] [address] Medical Transcriptionist: Christiano Ness MD Monocytes (Bld) [#/Vol] 0.46 10*3/uL Normal 200-950 [facility] Comment on above: Performed By: #### 1 7305, , 6398, 5 #### [facility] [place] [address] Medical Transcriptionist: Christiano Ness MD Monocytes/100 WBC (Bld) 7.3 % Normal [facility] Comment on above: Performed By: #### 1 73, , 6398, 1715 #### [facility] [place] [address] Medical Transcriptionist: Christiano Ness MD Neutrophils (Bld) [#/Vol] 2.759 10*3/uL Normal 6685-0630 [facility] Comment on above: Performed By: #### 1 73, , 6398, 1715 #### [facility] [place] [address] Medical Transcriptionist: Christiano Ness MD Neutrophils/100 WBC (Bld) 43.8 % Normal [facility] Comment on above: Performed By: #### 1 7305, , 6398, 1715 #### [facility] [place] [address] Medical Transcriptionist: Christiano Ness MD Platelet mean volume (Bld) [Entitic vol] 12.6 fL High 7.5-12.5 [facility] Comment on above: Performed By: #### 1 7306, , 6398, 1715 #### [facility] of [address], [address] [place] [address] Medical Transcriptionist: Christiano Ness MD Platelets (Bld) [#/Vol] 140 10*3/uL Normal 140-400 [facility] Comment on above: Performed By: #### 1 7306, , 6398, 1715 #### [facility] of [place] [address] Medical Transcriptionist: Christiano Ness MD RBC (Bld) [#/Vol] 4.62 10*6/uL Normal 4.20-5.80 [facility] Comment on above: Performed By: #### 1 7305, , 6398, 5 #### [facility] [place] [address] Medical Transcriptionist: Christiano Ness MD WBC (Bld) [#/Vol] 6.3 10*3/uL Normal 3.8-10.8 [facility] Comment on above: Performed By: #### 1 7306, , 6398, 1715 #### [facility] of [place] [address] Medical Transcriptionist: Christiano Ness MD PROTEIN, TOTAL W/CREAT, RAND OM URINEon 10-21-2024 Creatinine (U) [Mass/Vol] 67 mg/dL Normal 20-320 [facility] Comment on above: Performed By: #### 1 7306, , 63, 1715 #### [facility] of [place] [address] Medical Transcriptionist: Christiano Ness MD Protein (U) [Mass/Vol] 30 mg/dL High 5-25 [facility] Comment on above: Performed By: #### 1 7306, , 6398, 1715 #### [facility] [address], [address] [place] [address] Medical Transcriptionist: Christiano Ness MD PROTEIN/CREATININE RATIO 448 mg/g creat High 25-148 [facility] Comment on above: Performed By: #### 1 7306, 98954, 6399, 1715 #### [facility] [place] [address] Medical Transcriptionist: Christiano Ness MD PROTEIN/CREATININE RATIO 0.448 mg/mg creat High 0.025-0.148 [facility] Comment on above: Performed By: #### 1 7306, 39937, 63, 1715 #### [facility] [place] [address] Medical Transcriptionist: Christiano Ness MD PTH, INTACT WITHOUT CALCIUMo 10-21-2024 PARATHYROID HORMONE, INTACT 184 pg/mL High 16-77 [facility] Comment on above: Result Comment: Interpretive Guide Intact PTH Calcium ------- Normal Parathyroid Normal Normal Hypoparathyroidism Low or Low Normal Low Hyperparathyroidism Primary Normal or High High Secondary High Normal or Low Tertiary High High Non-Parathyroid Hypercalcemia Low or Low Normal High Performed By: #### 1 7306, 60314, 63, 1715 #### [facility] [place] [address] Medical Transcriptionist: Christiano Ness MD RENAL FUNCTION PANELon 10-21 Albumin [Mass/Vol] 4.5 g/dL Normal 3.6-5.1 [facility] Comment on above: Order Comment: FASTI NG:NO FASTING: NO Performed By: #### 1 7306, 75958, 6399, 1715 #### [facility] [place] [address] Medical Transcriptionist: Christiano Ness MD Calcium [Mass/Vol] 8.6 mg/dL Normal 8.6-10.3 [facility] Comment on above: Order Comment: FASTI NG:NO FASTING: NO Performed By: #### 1 7306, 66238, 63, 1715 #### [facility] [address], [address] [place] [address] Medical Transcriptionist: Christiano Ness MD Chloride [Moles/Vol] 109 mmol/L Normal 98-110 [facility] Comment on above: Order Comment: FASTI NG:NO FASTING: NO Performed By: #### 1 7306, 64388, 63, 1715 #### [facility] [address], [address] [place] [address] Medical Transcriptionist: Christiano Ness MD CO2 [Moles/Vol] 23 mmol/L Normal 20-32 [facility] Comment on above: Order Comment: FASTI NG:NO FASTING: NO Performed By: #### 1 7306, 32145, 63, 1715 #### [facility] [place] [address] Medical Transcriptionist: Christiano Ness MD Creatinine [Mass/Vol] 2.45 mg/dL High 0.70-1.28 [facility] [employer] Comment on above: Order Comment: FASTI NG:NO FASTING: NO Performed By: #### 1 7306, 56472, 63, 1715 #### [facility] [place] [address] Medical Transcriptionist: Christiano Ness MD GFR/1.73 sq M.predicted among non-blacks MDRD (S/P/Bld) [Vol rate/Area] 26 mL/min/{1.73_m2} Low > OR = 60 [facility] Comment on above: Order Comment: FASTI NG:NO FASTING: NO Performed By: #### 1 7306, 60996, 6399, 1715 #### [facility] [place] [address] Medical Transcriptionist: Christiano Ness MD Glucose [Mass/Vol] 92 mg/dL Normal 65-99 [facility] Comment on above: Order Comment: FASTI NG:NO FASTING: NO Result Comment: Fasting reference interval Performed By: #### 1 7306, 65558, 6399, 1715 #### [facility] [address], [address] [place] [address] Medical Transcriptionist: Christiano Ness MD Phosphate [Mass/Vol] 4.1 mg/dL Normal 2.1-4.3 [facility] Comment on above: Order Comment: FASTI NG:NO FASTING: NO Performed By: #### 1 7306, 13846, 6399, 1715 #### [facility] [place] [address] Medical Transcriptionist: Christiano Ness MD Potassium [Moles/Vol] 5.0 mmol/L Normal 3.5-5.[address] [facility] Comment on above: Order Comment: FASTI NG:NO FASTING: NO Performed By: #### 1 7306, 97961, 63, 1715 #### [facility] [place] [address] Medical Transcriptionist: Christiano Ness MD Sodium [Moles/Vol] 140 mmol/L Normal 135-146 [facility] Comment on above: Order Comment: FASTI NG:NO FASTING: NO Performed By: #### 1 7306, 60420, 63, 1715 #### [facility] [place] [address] Medical Transcriptionist: Christiano Ness MD Urea nitrogen [Mass/Vol] 33 mg/dL High 7-25 [facility] Comment on above: Order Comment: FASTI NG:NO FASTING: NO Performed By: #### 1 7306, 65384, 6399, 1715 #### [facility] [place] [address] Medical Transcriptionist: Christiano Ness MD Urea nitrogen/Creatinine [Mass ratio] 13 mg/mg Normal 6-22 [facility] Comment on above: Order Comment: FASTI NG:NO FASTING: NO Performed By: #### 1 7306, 14243, 6399, 1715 #### [facility] [place] [address] Medical Transcriptionist: Christiano Ness MD VITAMIN D,25-OH,TOTAL,IAon 0 10-21-2024 VITAMIN D,25-OH,TOTAL,IA 26 ng/mL Low 30-100 [facility] Comment on above: Result Comment: Kulwant min D Status 25-OH Vitamin D: Deficiency: <20 ng/mL Insufficiency: 20 - 29 ng/mL Optimal: > or = 30 ng/mL For 25-OH Vitamin D testing on patients on D2-supplementation and patients for whom quantitation of D2 and D3 fractions is required, the [facility](TM) 25-OH VIT D, (D2,D3), LC/MS/MS is recommended: order code 42450 (patients >2yrs). See Note 1 Note 1 For additional information, please refer to [email or web address]/faq/AYA899 (This link is being provided for informational/ educational purposes only.) Performed By: #### 1 7306, 20097, 6399, 1715 #### [facility] [address], [address] [place] [id number] Medical Transcriptionist: Christiano Land 09-08-2024 [facility] Telephone (FPDOYL) JORGE SALAMANCA ([id number]) 1945 M Date Time Provider Department 09/08/24 ERIC NICOLAS FPDOYL During your visit today, we recorded the following information about you: Rachael Saini LPN 09/08/2024 2:36 PM Signed Pt was d/c'd from Amlodipine on 09/02/2024 per Cardiology Updated pt medication list per request. Allergies As of Date: 09/08/2024 Noted Allergy Reaction BEE POLLEN 01/09/2019 4 - Hives COVID-19 VACC,MRNA(PFIZER)(PF ) 04/24/2022 5 - Intolerance 17 - Myalgia Comments: Numbness in hand and pain VENOM-HONEY BEE 01/09/2019 4 - Hives Date Reviewed: 08/08/2024 Reviewed by: Maribel Brooks LPN - Fully Assessed Prescriptions as of 09/08/2024 - acetaminophen (TYLENOL ORAL) Take by mouth. 2 po q 8 hours - aspirin, enteric coated (ASPIRIN, ENTERIC COATED) 81 mg EC tablet Take 81 mg by mouth once daily. - amiodarone (PACERONE) 200 mg tablet Take 1 tablet by mouth once daily. - amiodarone (PACERONE) 200 mg tablet Take 1 tablet by mouth once daily. - amLODIPine (NORVASC) 2.5 mg tablet Take 1 tablet by mouth once daily. - amLODIPine (NORVASC) 2.5 mg tablet Take 1 tablet by mouth once daily. - clopidogrel (PLAVIX) 75 mg tablet Take 1 tablet by mouth once daily. - clopidogrel (PLAVIX) 75 mg tablet Take 1 tablet by mouth once daily. - gabapentin (NEURONTIN) 400 mg capsule Take 1 capsule by mouth two times a day for 90 days. - gabapentin (NEURONTIN) 400 mg capsule Take 1 capsule by mouth two times a day for 30 days. - levothyroxine (SYNTHROID) 100 mcg tablet Take 1 tablet by mouth once daily. - levothyroxine (SYNTHROID) 100 mcg tablet Take 1 tablet by mouth once daily. - loratadine (CLARITIN) 10 mg tablet Take 1 tablet by mouth once daily. - metoprolol tartrate, short acting, (LOPRESSOR) 25 mg tablet Take 0.5 tablets by mouth two times a day. - metoprolol tartrate, short acting, (LOPRESSOR) 25 mg tablet Take 0.5 tablets by mouth two times a day. - pantoprazole DR (PROTONIX) 40 mg tablet Take 1 tablet by mouth once daily. - pantoprazole DR (PROTONIX) 40 mg tablet Take 1 tablet by mouth once daily. - rosuvastatin (CRESTOR) 40 mg tablet Take 1 tablet by mouth once daily. - rosuvastatin (CRESTOR) 40 mg tablet Take 1 tablet by mouth once daily. Meds Comments as of 08/08/2024: 08/08/24 patient brought a current medication list Medication notes this encounter AMIODARONE 200 MG TABLET >> Rachael Saini LPN 09/08/2024 2:34 PM >> RACHAEL SAINI [facility] Sep 08, 2024 2:34 PM Medication d/c'd by Cardiology on 09/02/2024 AMIODARONE 200 MG TABLET >> Rachael Saini LPN 09/08/2024 2:34 PM >> RACHAEL SAINI [facility] Sep 08, 2024 2:34 PM Medication d/c'd by Cardiology on 09/02/2024 AMLODIPINE 2.5 MG TABLET >> Rachael Saini LPN 09/08/2024 2:35 PM >> RACHAEL SAINI [facility] Sep 08, 2024 2:35 PM Pt requested 5mg tablets be sent in to [facility] and he will continue to split medication AMLODIPINE 2.5 MG TABLET >> Rachael Saini LPN 09/08/2024 2:35 PM >> RACHAEL SAINI [facility] Sep 08, 2024 2:35 PM Pt requested 5mg tablets be sent in to [facility] and he will split the pills in half Problem List As Of Date 09/08/2024 Noted Resolved Benign essential hypertension [I10] Arthritis [M19.90] Hypothyroidism [E03.9] Mixed hyperlipidemia [E78.2] Type 2 diabetes mellitus with diabetic neuropat* Screening for prostate cancer [Z12.5] 12/28/2020 Bilateral chronic knee pain [M25.561, M25.562, *04/24/2022 Kidney stones [N20.0] 04/24/2022 Perforated ear drum, left [H72.92] 06/10/2020 Diabetes mellitus type II, non insulin dependen*04/24/2022 Hematuria, microscopic [R31.29] 01/09/2019 Encounter Status:Closed by RACHAEL SAINI on 09/08/24 Normal [facility] Progress Noteon 09-02-2024 Progress Note Normal [facility] No Panel InformationOrdered By: Glendy Flores on 08-19-2024 Left AMERICA 1.13 [facility] Work Phone: Left arm BP 135 mmHg [facility] Work Phone: Left dorsalis pedis BP 152 mmHg [facility] Work Phone: Left posterior tibial 148 mmHg [facility] Work Phone: Right AMERICA 1.11 [facility] Work Phone: Right arm BP 133 mmHg [facility] Work Phone: Right dorsalis pedis BP [address] [facility] Work Phone: Right posterior tibial 150 mmHg [facility] Work Phone: No Panel Informationon 08-19 Right side findings: Resting AMERICA is 1.11. This is within the normal range. PVR waveforms appear normal at rest. Left side findings: Resting AMERICA is 1.13. This is within the normal range. PVR waveforms appear normal at rest. Exam performed by Isadora Harrison. AMERICA Right side findings: Normal resting AMERICA. Left side findings: Normal resting AMERICA. Right PVR waveforms: Normal at rest. Left PVR waveforms: Normal at rest. Human Resources Receptionist Details A spectral Doppler analysis ultrasound was performed. Pulsed volume recording (PVR) was performed. The exam was performed with the patient in the supine position. Overall the study quality was good. [facility] Emery 08-12-2024 [facility] Telephone (FPDOYL) JORGE SALAMANCA ([id number]) 1945 M Date Time Provider Department 08/12/24 ERIC NICOLAS FPDOYL During your visit today, we recorded the following information about you: Nadia Conte 08/12/2024 10:11 AM Signed US arterial PVR Lower being done at [facility] that the insurance won't accept pain as the diagnosis. She said we need to change the diagnosis and resend the order to [facility] [phone]. Bo Zabala 08/13/2024 10:38 AM Signed Ezio called in regards to the order and because they did not receive the updated order in time they had to reschedule the patient to the 29th of this month. Eric Nicolas DO 08/15/2024 3:03 PM Signed New order changed please fax Bo Mccarthy 08/15/2024 3:08 PM Signed Faxed updated order to [phone] and received Transmission Ok report at 3:06pm. Bo Sincere Allergies As of Date: 08/12/2024 Noted Allergy Reaction BEE POLLEN 01/09/2019 4 - Hives COVID-19 VACC,MRNA(PFIZER)(PF ) 04/24/2022 5 - Intolerance 17 - Myalgia Comments: Numbness in hand and pain VENOM-HONEY BEE 01/09/2019 4 - Hives Date Reviewed: 08/08/2024 Reviewed by: Maribel Brooks LPN - Fully Assessed Reason for Visit: Orders [681] Cmt: US arterial PVR at [facility]. Insurance will not accept the diagnosis or pain we need to change the diagnosis and resend a new order to [phone] Primary Visit Diagnosis:PVD (peripheral vascular disease) [I73.9] Order(s):US ARTERIAL PVR LOWER [[id number]] Order #: [id number] FUTURE Prescriptions as of 08/25/2024 - acetaminophen (TYLENOL ORAL) Take by mouth. 2 po q 8 hours - aspirin, enteric coated (ASPIRIN, ENTERIC COATED) 81 mg EC tablet Take 81 mg by mouth once daily. - amiodarone (PACERONE) 200 mg tablet Take 1 tablet by mouth once daily. - amiodarone (PACERONE) 200 mg tablet Take 1 tablet by mouth once daily. - amLODIPine (NORVASC) 2.5 mg tablet Take 1 tablet by mouth once daily. - amLODIPine (NORVASC) 2.5 mg tablet Take 1 tablet by mouth once daily. - clopidogrel (PLAVIX) 75 mg tablet Take 1 tablet by mouth once daily. - clopidogrel (PLAVIX) 75 mg tablet Take 1 tablet by mouth once daily. - gabapentin (NEURONTIN) 400 mg capsule Take 1 capsule by mouth two times a day for 90 days. - gabapentin (NEURONTIN) 400 mg capsule Take 1 capsule by mouth two times a day for 30 days. - levothyroxine (SYNTHROID) 100 mcg tablet Take 1 tablet by mouth once daily. - levothyroxine (SYNTHROID) 100 mcg tablet Take 1 tablet by mouth once daily. - loratadine (CLARITIN) 10 mg tablet Take 1 tablet by mouth once daily. - loratadine (CLARITIN) 10 mg tablet Take 1 tablet by mouth once daily. - metoprolol tartrate, short acting, (LOPRESSOR) 25 mg tablet Take 0.5 tablets by mouth two times a day. - metoprolol tartrate, short acting, (LOPRESSOR) 25 mg tablet Take 0.5 tablets by mouth two times a day. - pantoprazole DR (PROTONIX) 40 mg tablet Take 1 tablet by mouth once daily. - pantoprazole DR (PROTONIX) 40 mg tablet Take 1 tablet by mouth once daily. - rosuvastatin (CRESTOR) 40 mg tablet Take 1 tablet by mouth once daily. - rosuvastatin (CRESTOR) 40 mg tablet Take 1 tablet by mouth once daily. Meds Comments as of 08/08/2024: 08/08/24 patient brought a current medication list Problem List As Of Date 08/12/2024 Noted Resolved Benign essential hypertension [I10] Arthritis [M19.90] Hypothyroidism [E03.9] Mixed hyperlipidemia [E78.2] Type 2 diabetes mellitus with diabetic neuropat* Screening for prostate cancer [Z12.5] 12/28/2020 Bilateral chronic knee pain [M25.561, M25.562, *04/24/2022 Kidney stones [N20.0] 04/24/2022 Perforated ear drum, left [H72.92] 06/10/2020 Diabetes mellitus type II, non insulin dependen*04/24/2022 Hematuria, microscopic [R31.29] 01/09/2019 Encounter Status:Closed by NADIA CONTE on 08/25/24 [facility] Emery 08-11-2024 [facility] Telephone (AGCFM) JORGE SALAMANCA ([id number]) 1945 M Date Time Provider Department 08/11/24 FIDENCIO ERICBEV GAMINO [facility] During your visit today, we recorded the following information about you: Bo Mccarthy 08/11/2024 11:21 AM Signed Spoke to rep from [facility] in regards to patient. They were requesting the patients US order be faxed which I did and received OK Transmission report at 11:18am. Bo Zavala 08/11/2024 12:22 PM Signed [facility] rep reached back out in regards to the US order. They have received the fax and got the patient scheduled for August 13 at 11:20am but when checking their insurance they ran it through and it came up showing the code for pain in R AND L leg do not pass medical necessity. It will need to be corrected or Medicare might not cover it. If/when corrected they request it be faxed to [facility]. Thanks. Bo Mccarthy Allergies As of Date: 08/11/2024 Noted Allergy Reaction BEE POLLEN 01/09/2019 4 - Hives COVID-19 VACC,MRNA(PFIZER)(PF ) 04/24/2022 5 - Intolerance 17 - Myalgia Comments: Numbness in hand and pain VENOM-HONEY BEE 01/09/2019 4 - Hives Date Reviewed: 08/08/2024 Reviewed by: Maribel Brooks LPN - Fully Assessed Reason for Visit: Orders [681] Cmt: US fax [facility] Prescriptions as of 08/11/2024 - acetaminophen (TYLENOL ORAL) Take by mouth. 2 po q 8 hours - aspirin, enteric coated (ASPIRIN, ENTERIC COATED) 81 mg EC tablet Take 81 mg by mouth once daily. - amiodarone (PACERONE) 200 mg tablet Take 1 tablet by mouth once daily. - amiodarone (PACERONE) 200 mg tablet Take 1 tablet by mouth once daily. - amLODIPine (NORVASC) 2.5 mg tablet Take 1 tablet by mouth once daily. - amLODIPine (NORVASC) 2.5 mg tablet Take 1 tablet by mouth once daily. - clopidogrel (PLAVIX) 75 mg tablet Take 1 tablet by mouth once daily. - clopidogrel (PLAVIX) 75 mg tablet Take 1 tablet by mouth once daily. - gabapentin (NEURONTIN) 400 mg capsule Take 1 capsule by mouth two times a day for 90 days. - gabapentin (NEURONTIN) 400 mg capsule Take 1 capsule by mouth two times a day for 30 days. - levothyroxine (SYNTHROID) 100 mcg tablet Take 1 tablet by mouth once daily. - levothyroxine (SYNTHROID) 100 mcg tablet Take 1 tablet by mouth once daily. - loratadine (CLARITIN) 10 mg tablet Take 1 tablet by mouth once daily. - loratadine (CLARITIN) 10 mg tablet Take 1 tablet by mouth once daily. - metoprolol tartrate, short acting, (LOPRESSOR) 25 mg tablet Take 0.5 tablets by mouth two times a day. - metoprolol tartrate, short acting, (LOPRESSOR) 25 mg tablet Take 0.5 tablets by mouth two times a day. - pantoprazole DR (PROTONIX) 40 mg tablet Take 1 tablet by mouth once daily. - pantoprazole DR (PROTONIX) 40 mg tablet Take 1 tablet by mouth once daily. - rosuvastatin (CRESTOR) 40 mg tablet Take 1 tablet by mouth once daily. - rosuvastatin (CRESTOR) 40 mg tablet Take 1 tablet by mouth once daily. Meds Comments as of 08/08/2024: 08/08/24 patient brought a current medication list Problem List As Of Date 08/11/2024 Noted Resolved Benign essential hypertension [I10] Arthritis [M19.90] Hypothyroidism [E03.9] Mixed hyperlipidemia [E78.2] Type 2 diabetes mellitus with diabetic neuropat* Screening for prostate cancer [Z12.5] 12/28/2020 Bilateral chronic knee pain [M25.561, M25.562, *04/24/2022 Kidney stones [N20.0] 04/24/2022 Perforated ear drum, left [H72.92] 06/10/2020 Diabetes mellitus type II, non insulin dependen*04/24/2022 Hematuria, microscopic [R31.29] 01/09/2019 Encounter Status:Closed by BO MCCARTHY on 08/11/24 [facility] MAYELINon 08-08-2024 CNOV Office Visit (FPDOYL) JORGE SALMAANCA ([id number]) 1945 M Date Time Provider Department 08/08/24 10:15 AM ERIC NICOLAS During your visit today, we recorded the following information about you: Temperature Pulse Blood pressure Weight 98.1 degrees 61/minute 122/68 84.8 kg Height 1.676 m Riya Miranda 08/08/2024 2:58 PM Signed [facility] Nicolas DO [address] [place] [address] Date of Evaluation: 08/08/2024 Patient Name: Jorge Salamanca : 1945 Chief Complaint: Patient presents with: Follow Up: After assisted living. [facility]. Left the facility 08/06/24. Patient states since leaving he has had no medications. Subjective Mr. Salamanca is a 79 year old male who presents with the following complaint(s): The history is provided by the patient. No workforce planner was used. Thyroid Problem Presents for follow-up visit. Patient reports no anxiety, fatigue or palpitations. Hypertension This is a chronic problem. The current episode started more than 1 year ago. Pertinent negatives include no chest pain, headaches, palpitations or shortness of breath. Identifiable causes of hypertension include a thyroid problem. Diabetes He presents for his follow-up diabetic visit. He has type 2 diabetes mellitus. Pertinent negatives for hypoglycemia include no dizziness, headaches or nervousness/anxiousn ess. Pertinent negatives for diabetes include no chest pain, no fatigue and no weakness. Hypercholesterolemia This is a chronic problem. The current episode started more than 1 year ago. Pertinent negatives include no chest pain or shortness of breath. Atrial Fibrillation This is a chronic problem. Associated symptoms include an irregular heartbeat. Pertinent negatives include no anxiety, chest pain, coughing, dizziness, numbness, shortness of breath or weakness. Leg Pain The pain is present in the right lower leg and left lower leg. This is a chronic problem. There has been no history of extremity trauma. The problem occurs daily. The problem has been unchanged. Pertinent negatives include no numbness. The symptoms are aggravated by activity (walking). Review of Systems Constitutional: Negative for fatigue and unexpected weight change. HENT: Negative for nosebleeds. Eyes: Negative for redness and visual disturbance. Respiratory: Negative for apnea, cough and shortness of breath. Cardiovascular: Negative for chest pain, palpitations and leg swelling. Neurological: Negative for dizziness, weakness, light-headedness, numbness and headaches. Hematological: Does not bruise/bleed easily. Psychiatric/Behavior al: The patient is not nervous/anxious. PAST MEDICAL HISTORY Diagnosis Date Arthritis Atrial fibrillation (HCC) after surgery. Backache Benign essential hypertension Diarrhea Hypothyroidism Idiopathic peripheral autonomic neuropathy Impotence of organic origin Malaise and fatigue Migraine with aura Mixed hyperlipidemia Obesity Pain in joint involving ankle and foot Type 2 diabetes mellitus without complication (HCC) PAST SURGICAL HISTORY Procedure Laterality Date HEART SURGERY HX 2023 CABG (coronary artery bypass graft) TONSILLECTOMY AND ADENOIDECTOMY FAMILY HISTORY Problem Relation Age of Onset Lung Cancer Father Social History Tobacco Use Smoking status: Former Current packs/day: 0.00 Types: Cigarettes Quit date: 05/19/1975 Years since quittin.2 Smokeless tobacco: Never Vaping Use Vaping status: Never Used Substance Use Topics Alcohol use: Yes Comment: seldom Drug use: Never Current Outpatient Medications Medication Sig acetaminophen (TYLENOL ORAL) Take by mouth. 2 po q 8 hours aspirin, enteric coated (ASPIRIN, ENTERIC COATED) 81 mg EC tablet Take 81 mg by mouth once daily. amiodarone (PACERONE) 200 mg tablet Take 1 tablet by mouth once daily. amiodarone (PACERONE) 200 mg tablet Take 1 tablet by mouth once daily. amLODIPine (NORVASC) 2.5 mg tablet Take 1 tablet by mouth once daily. amLODIPine (NORVASC) 2.5 mg tablet Take 1 tablet by mouth once daily. clopidogrel (PLAVIX) 75 mg tablet Take 1 tablet by mouth once daily. clopidogrel (PLAVIX) 75 mg tablet Take 1 tablet by mouth once daily. gabapentin (NEURONTIN) 400 mg capsule Take 1 capsule by mouth two times a day for 90 days. gabapentin (NEURONTIN) 400 mg capsule Take 1 capsule by mouth two times a day for 30 days. levothyroxine (SYNTHROID) 100 mcg tablet Take 1 tablet by mouth once daily. levothyroxine (SYNTHROID) 100 mcg tablet Take 1 tablet by mouth once daily. loratadine (CLARITIN) 10 mg tablet Take 1 tablet by mouth once daily. loratadine (CLARITIN) 10 mg tablet Take 1 tablet by mouth once daily. metoprolol (more content not included)... Normal [facility] HEMOGLOBIN A1C (POC)on 08-08 HbA1c (Bld) [Mass fraction] 6.7 % Abnormal 4.3 - 5.6 % [facility] Comment on above: Location:[facility], [address] [place] [address], [facility] Point of care (POC) Hemoglobin A1c (HGBA1C) testing is intended to assess glucose control and provide a management tool for patients known to have diabetes and their healthcare providers. Target HGBA1C levels may depend on specific clinical circumstances. POC HGBA1C is not intended for use as a diagnostic or screening test; laboratory-based testing should be used for diagnostic purposes. The following information is supplemental and may not be applicable to specific diabetes management situations: The POC device sanitation superintendent provides a normal range of 4.2% to 6.5% for the HGBA1C POC test. However, the [place] [employer] guidelines indicate that patients with HGBA1C in the range of 5.7% to 6.4% are at increased risk for development of diabetes and that intervention by lifestyle modification may be beneficial. A HGBA1C level greater than or equal to 6.5% is considered diagnostic of diabetes, pending confirmatory testing. Use of HGBA1C testing to evaluate glucose control may not be appropriate for patients with hemoglobin variants or other conditions (e.g. anemia) that alter red blood cell lifespan. Interpretation and review of laboratory results Abnormal [facility] CBC (INCLUDES DIFF/PLT)on Basophils (Bld) [#/Vol] 0.02 10*3/uL Normal 0-200 [facility] Comment on above: Performed By: #### 1 0334, 1715, 56461, 9929 #### [facility] [address], [address] [place] [id number] Medical Transcriptionist: Christiano Ness MD Basophils/100 WBC (Bld) 0.4 % Normal [facility] Comment on above: Performed By: #### 1 0314, 171, 04872, 6399 #### [facility] of [place] [address] Medical Transcriptionist: Christiano Ness MD Eosinophils (Bld) [#/Vol] 0.143 10*3/uL Normal 15-500 [facility] Comment on above: Performed By: #### 1 4, 1714, 44653, 6399 #### [facility] [place] [address] Medical Transcriptionist: Christiano Ness MD Eosinophils/100 WBC (Bld) 2.8 % Normal [facility] Comment on above: Performed By: #### 1 4, 1714, 17888, 6399 #### [facility] [place] [address] Medical Transcriptionist: Christiano Ness MD Erythrocyte distribution width (RBC) [Ratio] 16.3 % High 11.0-15.0 [facility] Comment on above: Performed By: #### 1 4, 1714, 90994, 6399 #### [facility] [place] [address] Medical Transcriptionist: Christiano Ness MD Hematocrit (Bld) [Volume fraction] 42.7 % Normal 38.5-50.0 [facility] Comment on above: Performed By: #### 1 313, 1714, 16094, 6399 #### [facility] [place] [address] Medical Transcriptionist: Christiano Ness MD Hemoglobin (Bld) [Mass/Vol] 13.7 g/dL Normal 13.2-17.1 [facility] Comment on above: Performed By: #### 1 4, 171, 56443, 6399 #### [facility] [place] [address] Medical Transcriptionist: Christiano Ness MD Lymphocytes (Bld) [#/Vol] 2.841 10*3/uL Normal 850-3900 [facility] Comment on above: Performed By: #### 1 313, 1714, 31693, 6399 #### [facility] [place] [address] Medical Transcriptionist: Christiano Ness MD Lymphocytes/100 WBC (Bld) 55.7 % Normal [facility] Comment on above: Performed By: #### 1 313, 1714, , 6399 #### [facility] [place] [address] Medical Transcriptionist: Christiano Ness MD MCH (RBC) [Entitic mass] 27.3 pg Normal 27.0-33.0 [facility] Comment on above: Performed By: #### 1 313, 1714, , 6399 #### [facility] [place] [address] Medical Transcriptionist: Christiano Ness MD MCHC (RBC) [Mass/Vol] 32.1 g/dL Normal 32.0-36.[address] [facility] Comment on above: Result Comment: For adults, a slight decrease in the calculated MCHC value (in the range of 30 to 32 g/dL) is most likely not clinically significant; however, it should be interpreted with caution in correlation with other red cell parameters and the patient's clinical condition. Performed By: #### 1 313, 1714, , 6399 #### [facility] [place] [address] Medical Transcriptionist: Christiano Ness MD MCV (RBC) [Entitic vol] 85.1 fL Normal 80.0-100.0 [facility] Comment on above: Performed By: #### 1 313, 1714, 09912, 6399 #### [facility] [place] [address] Medical Transcriptionist: Christiano Ness MD Monocytes (Bld) [#/Vol] 0.49 10*3/uL Normal 200-950 [facility] Comment on above: Performed By: #### 1 313, 1714, 00892, 6399 #### [facility] of [address], [address] [place] [address] Medical Transcriptionist: Christiano Ness MD Monocytes/100 WBC (Bld) 9.6 % Normal [facility] Comment on above: Performed By: #### 1 0314, 171, 64886, 6399 #### [facility] of [address], [address] [place] [address] Medical Transcriptionist: Christiano Ness MD Neutrophils (Bld) [#/Vol] 1.607 10*3/uL Normal 0944-8289 [facility] Comment on above: Performed By: #### 1 4, 1714, 24970, 6399 #### [facility] of [address], [address] [place] [address] Medical Transcriptionist: Christiano Ness MD Neutrophils/100 WBC (Bld) 31.5 % Normal [facility] Comment on above: Performed By: #### 1 4, 1714, 55488, 6399 #### [facility] of [address], [address] [place] [address] Medical Transcriptionist: Christiano Ness MD Platelet mean volume (Bld) [Entitic vol] 11.7 fL Normal 7.5-12.5 [facility] Comment on above: Performed By: #### 1 313, 1714, 47944, 6399 #### [facility] [place] [address] Medical Transcriptionist: Christiano Ness MD Platelets (Bld) [#/Vol] 142 10*3/uL Normal 140-400 [facility] Comment on above: Performed By: #### 1 0314, 171, 65208, 6399 #### [facility] of [address], [address] [place] [address] Medical Transcriptionist: Christiano Ness MD RBC (Bld) [#/Vol] 5.02 10*6/uL Normal 4.20-5.80 [facility] Comment on above: Performed By: #### 1 031, 171, 43370, 6399 #### [facility] of [address], [address] [place] [address] Medical Transcriptionist: Christiano Ness MD WBC (Bld) [#/Vol] 5.1 10*3/uL Normal 3.8-10.8 [facility] Comment on above: Performed By: #### 1 0314, 1715, 73733, 6399 #### [facility] of [address], [address] [place] [address] Medical Transcriptionist: Christiano Ness MD PROTEIN, TOTAL W/CREAT, RAND OM URINEon 07-01-2024 Creatinine (U) [Mass/Vol] 133 mg/dL Normal 20-320 [facility] Comment on above: Performed By: #### 1 0314, 1715, 73096, 6399 #### [facility] of [address], [address] [place] [address] Medical Transcriptionist: Christiano Ness MD Protein (U) [Mass/Vol] 69 mg/dL High 5-25 [facility] Comment on above: Performed By: #### 1 0314, 1715, 84810, 6399 #### [facility] [place] [address] Medical Transcriptionist: Christiano Ness MD PROTEIN/CREATININE RATIO 519 mg/g creat High 25-148 [facility] Comment on above: Performed By: #### 1 0314, 1715, 10868, 6399 #### [facility] [place] [address] Medical Transcriptionist: Christiano Ness MD PROTEIN/CREATININE RATIO 0.519 mg/mg creat High 0.025-0.148 [facility] Comment on above: Performed By: #### 1 0314, 1715, 55137, 6399 #### [facility] [place] [address] Medical Transcriptionist: Christiano Ness MD PTH, INTACT WITHOUT CALCIUMo n 07-01-2024 PARATHYROID HORMONE, INTACT 192 pg/mL High 16-77 [facility] Comment on above: Result Comment: Interpretive Guide Intact PTH Calcium ------- Normal Parathyroid Normal Normal Hypoparathyroidism Low or Low Normal Low Hyperparathyroidism Primary Normal or High High Secondary High Normal or Low Tertiary High High Non-Parathyroid Hypercalcemia Low or Low Normal High Performed By: #### 1 0314, 1715, 56870, 6399 #### [facility] [place] [address] Medical Transcriptionist: Christiano Ness MD RENAL FUNCTION PANELon 07-01 Albumin [Mass/Vol] 4.3 g/dL Normal 3.6-5.1 [facility] Comment on above: Performed By: #### 1 0314, 171, 94673, 6399 #### [facility] [place] [address] Medical Transcriptionist: Christiano Ness MD Calcium [Mass/Vol] 8.7 mg/dL Normal 8.6-10.3 [facility] Comment on above: Performed By: #### 1 0314, 171, 37406, 6399 #### [facility] [place] [address] Medical Transcriptionist: Christiano Ness MD Chloride [Moles/Vol] 111 mmol/L High 98-110 [facility] Comment on above: Performed By: #### 1 0314, 171, 60137, 6399 #### [facility] [place] [address] Medical Transcriptionist: Christiano Ness MD CO2 [Moles/Vol] 21 mmol/L Normal 20-32 [facility] Comment on above: Performed By: #### 1 0314, 171, 65467, 6399 #### [facility] [place] [address] Medical Transcriptionist: Christiano Ness MD Creatinine [Mass/Vol] 2.49 mg/dL High 0.70-1.[address] [facility] Comment on above: Performed By: #### 1 0314, 1715, 29123, 6399 #### [facility] [place] [address] Medical Transcriptionist: Christiano Ness MD GFR/1.73 sq M.predicted among non-blacks MDRD (S/P/Bld) [Vol rate/Area] 26 mL/min/{1.73_m2} Low > OR = 60 [facility] Comment on above: Performed By: #### 1 0314, 1715, 76108, 6399 #### [facility] [place] [address] Medical Transcriptionist: Christiano Ness MD Glucose [Mass/Vol] 93 mg/dL Normal 65-99 [facility] Comment on above: Result Comment: Fasting reference interval Performed By: #### 1 0314, 1715, 36291, 6399 #### [facility] [address], [address] [place] [address] Medical Transcriptionist: Christiano Ness MD Phosphate [Mass/Vol] 4.5 mg/dL High 2.1-4.3 [facility] Comment on above: Performed By: #### 1 0314, 171, 39451, 6399 #### [facility] [place] [address] Medical Transcriptionist: Christiano Ness MD Potassium [Moles/Vol] 4.7 mmol/L Normal 3.5-5.[address] [facility] Comment on above: Performed By: #### 1 0314, 1715, 54161, 6399 #### [facility] [place] [address] Medical Transcriptionist: Christiano Ness MD Sodium [Moles/Vol] 141 mmol/L Normal 135-146 [facility] Comment on above: Performed By: #### 1 0314, 1715, 80297, 6399 #### [facility] [place] [address] Medical Transcriptionist: Christiano Ness MD Urea nitrogen [Mass/Vol] 33 mg/dL High 7-25 [facility] Comment on above: Performed By: #### 1 0314, 1715, 50350, 6399 #### [facility] [address], [address] [place], [place] [address] Medical Transcriptionist: Christiano Ness MD Urea nitrogen/Creatinine [Mass ratio] 13 mg/mg Normal 6-22 [facility] Comment on above: Performed By: #### 1 0314, 1715, 42936, 6399 #### [facility] [address], [address] [place] [address] Medical Transcriptionist: Christiano Ness MD VITAMIN D,25-OH,TOTAL,IAon 0 07-01-2024 VITAMIN D,25-OH,TOTAL,IA 30 ng/mL Normal 30-100 [facility] Comment on above: Result Comment: Kulwant min D Status 25-OH Vitamin D: Deficiency: <20 ng/mL Insufficiency: 20 - 29 ng/mL Optimal: > or = 30 ng/mL For 25-OH Vitamin D testing on patients on D2-supplementation and patients for whom quantitation of D2 and D3 fractions is required, the QuestAssureD(TM) 25-OH VIT D, (D2,D3), LC/MS/MS is recommended: order code 95247 (patients >2yrs). See Note 1 Note 1 For additional information, please refer to http://education.[employer].Promobucket/faq/JAX707 (This link is being provided for informational/ educational purposes only.) Performed By: #### 1 0314, 1715, 77584, 6399 #### [facility] [address], [address] [place], [place] [id number] Medical Transcriptionist: Christiano Ness MD 36on 06-04-2024 36 Received message from [facility] requesting the order for the medication changes be faxed to them. Faxed Dr. Azar's comment about medication changes along with last OV note from 04-28-24 to [facility] ([phone]). Sending as an fyi [facility] 36on 06-02-[address] [facility] 36 ----- Message from Gustavo Azar MD sent at 05/30/2024 4:47 PM EST ----- His monitor shows no atrial fibrillation. May stop Eliquis and add aspirin to the Plavix. Normal [facility] Progress Noteon 05-01-2024 Progress Note His monitor shows no atrial fibrillation. May stop Eliquis and add aspirin to the Plavix. Normal [facility] ECG 12 lead - CLINIC PERFORM EDon 04-28-2024 Sinus Rhythm -Left anterior fascicular block -Nonspecific T-abnormality. ABNORMAL [facility] Progress Noteon 04-28-2024 Progress Note Normal [facility] CBC (INCLUDES DIFF/PLT)on Basophils (Bld) [#/Vol] 0.047 10*3/uL Normal 0-200 [facility] Comment on above: Performed By: #### 1 715, 03168, 41136, 6399 #### [facility] [place] [address] Medical Transcriptionist: Christiano Ness MD Basophils/100 WBC (Bld) 0.7 % Normal [facility] Comment on above: Performed By: #### 1 715, 34300, 11189, 6399 #### [facility] [place] [address] Medical Transcriptionist: Christiano Ness MD Eosinophils (Bld) [#/Vol] 0.147 10*3/uL Normal 15-500 [facility] Comment on above: Performed By: #### 1 715, 20636, 62777, 6399 #### [facility] [place] [address] Medical Transcriptionist: Christiano Ness MD Eosinophils/100 WBC (Bld) 2.2 % Normal [facility] Comment on above: Performed By: #### 1 715, 45165, 96053, 6399 #### [facility] [place] [address] Medical Transcriptionist: Christiano Ness MD Erythrocyte distribution width (RBC) [Ratio] 14.1 % Normal 11.0-15.0 [facility] Comment on above: Performed By: #### 1 715, 22934, 79165, 6399 #### [facility] [place] [address] Medical Transcriptionist: Christiano Ness MD Hematocrit (Bld) [Volume fraction] 36.9 % Low 38.5-50.0 [facility] Comment on above: Performed By: #### 1 715, 17956, 27981, 6399 #### [facility] [place] [address] Medical Transcriptionist: Christiano Ness MD Hemoglobin (Bld) [Mass/Vol] 11.4 g/dL Low 13.2-17.1 [facility] Comment on above: Performed By: #### 1 715, 97376, 62348, 6399 #### [facility] [place] [address] Medical Transcriptionist: Christiano Ness MD Lymphocytes (Bld) [#/Vol] 3.149 10*3/uL Normal 850-3900 [facility] Comment on above: Performed By: #### 1 715, 36690, 85643, 6399 #### [facility] [place] [address] Medical Transcriptionist: Christiano Ness MD Lymphocytes/100 WBC (Bld) 47.0 % Normal [facility] Comment on above: Performed By: #### 1 715, 44325, 12190, 6399 #### [facility] [place] [address] Medical Transcriptionist: Christiano Ness MD MCH (RBC) [Entitic mass] 26.9 pg Low 27.0-33.0 [facility] Comment on above: Performed By: #### 1 715, 42206, 92239, 6399 #### [facility] [place] [address] Medical Transcriptionist: Christiano Ness MD MCHC (RBC) [Mass/Vol] 30.9 g/dL Low 32.0-36.[address] [facility] Comment on above: Result Comment: For adults, a slight decrease in the calculated MCHC value (in the range of 30 to 32 g/dL) is most likely not clinically significant; however, it should be interpreted with caution in correlation with other red cell parameters and the patient's clinical condition. Performed By: #### 1 715, 20001, 49297, 6399 #### [facility] [place] [address] Medical Transcriptionist: Christiano Ness MD MCV (RBC) [Entitic vol] 87.0 fL Normal 80.0-100.0 [facility] Comment on above: Performed By: #### 1 715, 62776, 53348, 6399 #### [facility] [place] [address] Medical Transcriptionist: Christiano Ness MD Monocytes (Bld) [#/Vol] 0.449 10*3/uL Normal 200-950 [facility] Comment on above: Performed By: #### 1 715, 68134, 73894, 6399 #### [facility] [place] [address] Medical Transcriptionist: Christiano Ness MD Monocytes/100 WBC (Bld) 6.7 % Normal [facility] Comment on above: Performed By: #### 1 715, 46306, 04691, 6399 #### [facility] [place] [address] Medical Transcriptionist: Christiano Ness MD Neutrophils (Bld) [#/Vol] 2.908 10*3/uL Normal 2641-6868 [facility] Comment on above: Performed By: #### 1 715, 04404, 30699, 6399 #### [facility] [place] [address] Medical Transcriptionist: Christiano Ness MD Neutrophils/100 WBC (Bld) 43.4 % Normal [facility] Comment on above: Performed By: #### 1 715, 30824, 17608, 6399 #### [facility] [place] [address] Medical Transcriptionist: Christiano Ness MD Platelet mean volume (Bld) [Entitic vol] 11.9 fL Normal 7.5-12.5 [facility] Comment on above: Performed By: #### 1 715, 02964, 26367, 6399 #### [facility] [place] [address] Medical Transcriptionist: Christiano Ness MD Platelets (Bld) [#/Vol] 202 10*3/uL Normal 140-400 [facility] Comment on above: Performed By: #### 1 715, 28346, 30315, 6399 #### [facility] [place] [address] Medical Transcriptionist: Christiano Ness MD RBC (Bld) [#/Vol] 4.24 10*6/uL Normal 4.20-5.80 [facility] Comment on above: Performed By: #### 1 715, 36075, 82592, 6399 #### [facility] [place] [address] Medical Transcriptionist: Christiano Ness MD WBC (Bld) [#/Vol] 6.7 10*3/uL Normal 3.8-10.8 [facility] Comment on above: Performed By: #### 1 715, 81801, 76722, 6399 #### [facility] [place] [address] Medical Transcriptionist: Christiano Ness MD PROTEIN, TOTAL W/CREAT, RAND OM URINEon 04-04-2024 Creatinine (U) [Mass/Vol] 65 mg/dL Normal 20-320 [facility] Comment on above: Performed By: #### 1 715, 07446, 41609, 6399 #### [facility] [place] [address] Medical Transcriptionist: Christiano Ness MD Protein (U) [Mass/Vol] 16 mg/dL Normal 5-25 [facility] Comment on above: Performed By: #### 1 715, 49078, 74722, 6399 #### [facility] [address], [address] [place] [address] Medical Transcriptionist: Christiano Ness MD PROTEIN/CREATININE RATIO 246 mg/g creat High 25-148 [facility] Comment on above: Performed By: #### 1 715, 33325, 69063, 6399 #### [facility] [address], [address] [place] [address] Medical Transcriptionist: Christiano Ness MD PROTEIN/CREATININE RATIO 0.246 mg/mg creat High 0.025-0.148 [facility] Comment on above: Performed By: #### 1 715, 06978, 40095, 6399 #### [facility] [place] [address] Medical Transcriptionist: Christiano Ness MD PTH, INTACT WITHOUT CALCIUMo 04-04-2024 PARATHYROID HORMONE, INTACT 208 pg/mL High 16-77 [facility] Comment on above: Result Comment: Interpretive Guide Intact PTH Calcium ------- Normal Parathyroid Normal Normal Hypoparathyroidism Low or Low Normal Low Hyperparathyroidism Primary Normal or High High Secondary High Normal or Low Tertiary High High Non-Parathyroid Hypercalcemia Low or Low Normal High Performed By: #### 1 715, 46614, 11282, 6399 #### [facility] [place] [address] Medical Transcriptionist: Christiano Ness MD RENAL FUNCTION PANELon 04-04 Albumin [Mass/Vol] 3.9 g/dL Normal 3.6-5.1 [facility] Comment on above: Performed By: #### 1 715, 33566, 24821, 6399 #### [facility] [place] [address] Medical Transcriptionist: Christiano Ness MD Calcium [Mass/Vol] 8.4 mg/dL Low 8.6-10.3 [facility] Comment on above: Performed By: #### 1 715, 10962, 33859, 6399 #### [facility] [place] [address] Medical Transcriptionist: Christiano Ness MD Chloride [Moles/Vol] 108 mmol/L Normal 98-110 [facility] Comment on above: Performed By: #### 1 715, 35671, 57317, 6399 #### [facility] [place] [address] Medical Transcriptionist: Christiano Ness MD CO2 [Moles/Vol] 29 mmol/L Normal 20-32 [facility] Comment on above: Performed By: #### 1 715, 19964, 45762, 6399 #### [facility] [place] [address] Medical Transcriptionist: Christiano Ness MD Creatinine [Mass/Vol] 2.76 mg/dL High 0.70-1.[address] [facility] Comment on above: Performed By: #### 1 715, 14520, 27158, 6399 #### [facility] [place] [address] Medical Transcriptionist: Christiano Ness MD GFR/1.73 sq M.predicted among non-blacks MDRD (S/P/Bld) [Vol rate/Area] 23 mL/min/{1.73_m2} Low > OR = 60 [facility] Comment on above: Performed By: #### 1 715, 09957, 63047, 6399 #### [facility] [place] [address] Medical Transcriptionist: Christiano Ness MD Glucose [Mass/Vol] 147 mg/dL High 65-99 [facility] Comment on above: Result Comment: Fasting reference interval For someone without known diabetes, a glucose value >125 mg/dL indicates that they may have diabetes and this should be confirmed with a follow-up test. Performed By: #### 1 715, 60629, 84646, 6399 #### [facility] of [address], [address] [place] [address] Medical Transcriptionist: Christiano Ness MD Phosphate [Mass/Vol] 5.2 mg/dL High 2.1-4.3 [facility] Comment on above: Performed By: #### 1 715, 96893, 62438, 6399 #### [facility] of [address], [address] [place] [address] Medical Transcriptionist: Christiano Ness MD Potassium [Moles/Vol] 4.7 mmol/L Normal 3.5-5.[address] [facility] Comment on above: Performed By: #### 1 715, 32053, 61030, 6399 #### [facility] of [address], [address] [place] [address] Medical Transcriptionist: Christiano Ness MD Sodium [Moles/Vol] 142 mmol/L Normal 135-146 [facility] Comment on above: Performed By: #### 1 715, 00478, 85716, 6399 #### [facility] of [address], [address] [place] [address] Medical Transcriptionist: Christiano Ness MD Urea nitrogen [Mass/Vol] 30 mg/dL High 7-25 [facility] Comment on above: Performed By: #### 1 715, 10208, 96618, 6399 #### [facility] of [address], [address] [place] [address] Medical Transcriptionist: Christiano Ness MD Urea nitrogen/Creatinine [Mass ratio] 11 mg/mg Normal 6-22 [facility] Comment on above: Performed By: #### 1 715, 12302, 66664, 6399 #### [facility] [place] [address] Medical Transcriptionist: Christiano Ness MD VITAMIN D,25-OH,TOTAL,IAon 1 06-04-2023 VITAMIN D,25-OH,TOTAL,IA 29 ng/mL Low 30-100 [facility] Comment on above: Result Comment: Kulwant min D Status 25-OH Vitamin D: Deficiency: <20 ng/mL Insufficiency: 20 - 29 ng/mL Optimal: > or = 30 ng/mL For 25-OH Vitamin D testing on patients on D2-supplementation and patients for whom quantitation of D2 and D3 fractions is required, the QuestAssureD(TM) 25-OH VIT D, (D2,D3), LC/MS/MS is recommended: order code 39897 (patients >2yrs). See Note 1 Note 1 For additional information, please refer to http://education.[employer].Promobucket/faq/YMT515 (This link is being provided for informational/ educational purposes only.) Performed By: #### 1 725, 13885, 89756, 4563 #### [facility] [place] [address] [facility], [address] [place] [address] Medical Transcriptionist: Christiano Ness MD No Panel Informationon 03-05 Sinus Rhythm -frequent ectopic ventricular beats # VECs = 2 -Left axis -anterior fascicular block. -Nonspecific T-abnormality. ABNORMAL [facility] No Panel InformationOrdered By: Gustavo Azar on 03-05-2024 [facility] Work Phone: Progress Noteon 03-05-2024 Progress Note Normal [facility] Progress Noteon 02-25-2024 Progress Note Normal [facility] Progress Noteon 02-14-2024 Progress Note Normal [facility] Progress Noteon 02-05-2024 Progress Note Normal [facility] [id number] 01-31-2024 [id number] Noted plan for discharge to [facility]. ANABELA notified to continue to follow for discharge needs following [facility] stay. HCL signing off. [facility] CARECOORDon 01-31-2024 [facility] MAR & Discharge med list transmitted to [facility] via [facility] per TCC request. Electronically signed by VLADIMIR [facility] arranged transport through [facility] to [facility] for 5:00 pm. Notified: ANTHONY, RN, Facility, patient, community nurse and left message for patient's brother, Nnacy. Normal [facility] CARECOORD Normal [facility] CBC (HEMOGRAM)on 01-31-2024 Erythrocyte distribution width (RBC) [Ratio] 14.0 % Normal 11.5-15.0 [facility] Comment on above: Performed By: #### L [id number] ####Medical Transcriptionist: COURTNEY BENNETT ([id number])[facility])[address] [place] [address] Hematocrit (Bld) [Volume fraction] 30.9 % Low 40.0-52.0 [facility] Comment on above: Performed By: #### L [id number] ####Medical Transcriptionist: COURTNEY BENNETT ([id number])[facility])[address] [place] [address] Hemoglobin (Bld) [Mass/Vol] 9.9 g/dL Low 13.0-18.0 [facility] Comment on above: Performed By: #### L [id number] ####Medical Transcriptionist: COURTNEY BENNETT ([id number])[facility])[address] [place] [address] MCH (RBC) [Entitic mass] 27.2 pg Normal 26.0-34.0 [facility] Comment on above: Performed By: #### L [id number] ####Medical Transcriptionist: COURTNEY BENNETT ([id number])[facility])[address] [place] [address] MCHC 32.0 % Normal 30.5-36.0 [facility] Comment on above: Performed By: #### L [id number] ####Medical Transcriptionist: COURTNEY BENNETT ([phone])[facility])[address] [place] [address] MCV (RBC) [Entitic vol] 84.9 fL Normal 77.0-99.0 [facility] Comment on above: Performed By: #### L [id number] ####Medical Transcriptionist: COURTNEY BENNETT ([id number])[facility] ([facility])[address] [place] [address] Platelet mean volume (Bld) [Entitic vol] 11.3 fL Normal 9.0-12.7 [facility] Comment on above: Performed By: #### L [id number] ####Medical Transcriptionist: COURTNEY BENNETT ([id number])[facility] ([facility])[address] [place] [address] Platelets (Bld) [#/Vol] 297 10*3/uL Normal 140-440 [facility] Comment on above: Performed By: #### L [id number] ####Medical Transcriptionist: COURTNEY BENNETT ([id number])[facility] ([facility])[address] [place] [address] RBC (Bld) [#/Vol] 3.64 10*6/uL Low 4.40-5.90 [facility] Comment on above: Performed By: #### L [id number] ####Medical Transcriptionist: COURTNEY BENNETT ([id number])[facility])[address] [place] [address] WBC (Bld) [#/Vol] 11.8 10*3/uL High 3.6-10.7 [facility] Comment on above: Performed By: #### L [id number] ####Medical Transcriptionist: COURTNEY BENNETT ([id number])[facility] ([facility])[address] [place] [address] CBC panel Auto (Bld)on 01-30 Erythrocyte distribution width (RBC) [Ratio] 14.0 % 11.5 - 15.0 % [facility] Hematocrit (Bld) [Volume fraction] 30.9 % Low 40.0 - 52.0 % [facility] Hemoglobin (Bld) [Mass/Vol] 9.9 g/dL Low 13.0 - 18.0 g/dL [facility] Interpretation and review of laboratory results Abnormal [facility] MCH (RBC) [Entitic mass] 27.2 pg 26.0 - 34.0 pg [facility] MCHC (RBC) [Mass/Vol] 32.0 % 30.5 - 36.0 % [facility] MCV (RBC) [Entitic vol] 84.9 fL 77.0 - 99.0 fL [facility] Platelet mean volume (Bld) [Entitic vol] 11.3 fL 9.0 - 12.7 fL [facility] Platelets (Bld) [#/Vol] 297 10*3/uL 140 - 440 10*3/uL [facility] RBC (Bld) [#/Vol] 3.64 10*6/uL Low 4.40 - 5.9 0 10*6/uL [facility] WBC (Bld) [#/Vol] 11.8 10*3/uL High 3.6 - 10.7 10*3/uL [facility] COMPREHENSIVE METABOLIC PANE Daniel 01-31-2024 Albumin [Mass/Vol] 3.7 g/dL Normal 3.5-5.0 [facility] Comment on above: Performed By: #### L AB17 ####Medical Transcriptionist: COURTNEY BENNETT ([id number])[facility] ([facility])[address] [place] [address] ALP [Catalytic activity/Vol] 65 U/L Normal 38-126 [facility] Comment on above: Performed By: #### L AB17 ####Medical Transcriptionist: COURTNEY BENNETT ([id number])[facility] ([facility])[address] [place] [address] ALT [Catalytic activity/Vol] 14 U/L Normal 0-49 [facility] Comment on above: Performed By: #### L AB17 ####Medical Transcriptionist: COURTNEY BENNETT ([id number])[facility] ([facility])[address] [place] [address] Anion gap [Moles/Vol] 11 mmol/L Normal 3-13 [facility] Comment on above: Performed By: #### L AB17 ####Medical Transcriptionist: COURTNEY BENNETT ([id number])[facility] ([facility])[address] [place] [address] AST [Catalytic activity/Vol] 38 U/L Normal 15-46 [facility] Comment on above: Performed By: #### L AB17 ####Medical Transcriptionist: COURTNEY BENNETT ([id number])[facility])[address] [place] [address] Bilirubin [Mass/Vol] 1.1 mg/dL Normal 0.2-1.3 [facility] Comment on above: Performed By: #### L AB17 ####Medical Transcriptionist: COURTNEY BENNETT ([phone])[facility])[address] [place] [address] Calcium [Mass/Vol] 8.6 mg/dL Normal 8.4-10.4 [facility] Comment on above: Performed By: #### L AB17 ####Medical Transcriptionist: COURTNEY BENNETT ([id number])[facility])[address] [place] [address] Chloride [Moles/Vol] 105 mmol/L Normal 98-107 [facility] Comment on above: Performed By: #### L AB17 ####Medical Transcriptionist: COURTNEY BENNETT ([id number])[facility] ([facility])[address] [place] [address] CO2 [Moles/Vol] 21 mmol/L Low 22-30 [facility] Comment on above: Performed By: #### L AB17 ####Medical Transcriptionist: COURTNEY BENNETT ([id number])[facility])[address] [place] [address] Creatinine [Mass/Vol] 2.72 mg/dL High 0.66-1.25 [facility] Comment on above: Performed By: #### L AB17 ####Medical Transcriptionist: COURTNEY BENNETT ([id number])[facility])[address] [place] [address] [place] GLOMERULAR FILTRATION RATE ML/MIN/1.73 SQ M.PREDICTED 23.5 mL/min/1.73m*2 Low >60.0 [facility] Comment on above: Result Comment: Calc ulation based on the Chronic Kidney Disease Epidemiology Collaboration (CKD-EPI) equation refit without adjustment for race Performed By: #### L AB17 ####Medical Transcriptionist: COURTNEY BENNETT ([id number])[facility] ([facility])[address] [place] [address] Glucose [Mass/Vol] 146 mg/dL High 70-100 [facility] Comment on above: Performed By: #### L AB17 ####Medical Transcriptionist: COURTNEY BENNETT ([id number])[facility] ([facility])[address] [place] [address] Potassium [Moles/Vol] 4.1 mmol/L Normal 3.5-5.1 [facility] Comment on above: Performed By: #### L AB17 ####Medical Transcriptionist: COURTNEY BENNETT ([id number])[facility])[address] [place] [address] Protein [Mass/Vol] 6.7 g/dL Normal 6.3-8.2 [facility] Comment on above: Performed By: #### L AB17 ####Medical Transcriptionist: COURTNEY BENNETT ([id number])[facility] ([facility])[address] [place] [address] Sodium [Moles/Vol] 138 mmol/L Normal 135-145 [facility] Comment on above: Performed By: #### L AB17 ####Medical Transcriptionist: COURTNEY BENNETT ([id number])[facility])[address] [place] [address] Urea nitrogen [Mass/Vol] 59 mg/dL High 9-20 [facility] Comment on above: Performed By: #### L AB17 ####Medical Transcriptionist: COURTNEY BENNETT ([id number])[facility] ([facility])[address] [place] [address] Comprehensive metabolic 1998 panelon 01-31-2024 Albumin [Mass/Vol] 3.7 g/dL 3.5 - 5.0 g/dL [facility] ALP [Catalytic activity/Vol] 65 U/L 38 - 126 U/L [facility] ALT [Catalytic activity/Vol] 14 U/L 0 - 49 U/L [facility] Anion gap [Moles/Vol] 11 mmol/L 3 - 13 mmol/L [facility] AST [Catalytic activity/Vol] 38 U/L 15 - 46 U/L [facility] Bilirubin [Mass/Vol] 1.1 mg/dL 0.2 - 1 .3 mg/dL [facility] Calcium [Mass/Vol] 8.6 mg/dL 8.4 - 10. 4 mg/dL [facility] Chloride [Moles/Vol] 105 mmol/L 98 - 10 7 mmol/L [facility] CO2 [Moles/Vol] 21 mmol/L Low 22 - 30 mmol/L [facility] Creatinine [Mass/Vol] 2.72 mg/dL High 0.66 - 1.25 mg/dL [facility] GFR/1.73 sq M.predicted (S/P/Bld) [Vol rate/Area] 23.5 mL/min Low - PINF [facility] Glucose [Mass/Vol] 146 mg/dL High 70 - 100 mg/dL [facility] Interpretation and review of laboratory results Abnormal [facility] Potassium [Moles/Vol] 4.1 mmol/L 3.5 - 5.1 mmol/L [facility] Protein [Mass/Vol] 6.7 g/dL 6.3 - 8.2 g/dL [facility] Sodium [Moles/Vol] 138 mmol/L 135 - 145 mmol/L [facility] Urea nitrogen [Mass/Vol] 59 mg/dL High 9 - 20 mg/dL [facility] IDNon 01-31-2024 IDN Normal [facility] Laboratory - Chemistry and C hemistry - challengeon 01-31-2024 Glucose [Mass/Vol] 166 mg/dL High 70 - 100 mg/dL [facility] Glucose [Mass/Vol] 145 mg/dL High 70 - 100 mg/dL [facility] No Panel Informationon 01-30 Interpretation and review of laboratory results Abnormal [facility] Interpretation and review of laboratory results Abnormal [facility] Nursing Noteon 01-31-2024 Nursing Note Discharged to [facility], saline lock removed, preethi and discharge instructions to [facility], copy of discharge with pt, appointments gone over. Pt belonging with patient Normal [facility] Progress Noteon 01-31-2024 Progress Note Normal [facility] Progress [facility] Normal [facility] CARECOORDon 01-30-2024 CAR[place]OORD Awaiting OT note to start auth to [facility]. Normal [facility] CBC (HEMOGRAM)on 01-30-2024 Erythrocyte distribution width (RBC) [Ratio] 14.1 % Normal 11.5-15.0 [facility] Comment on above: Performed By: #### L [id number] ####Medical Transcriptionist: COURTNEY BENNETT ([id number])[address] Hematocrit (Bld) [Volume fraction] 31.9 % Low 40.0-52.0 [facility] Comment on above: Performed By: #### L [id number] ####Medical Transcriptionist: COURTNEY BENNETT ([id number])[address] Hemoglobin (Bld) [Mass/Vol] 10.3 g/dL Low 13.0-18.0 [facility] Comment on above: Performed By: #### L [id number] ####Medical Transcriptionist: COURTNEY BENNETT ([id number])[address] MCH (RBC) [Entitic mass] 27.5 pg Normal 26.0-34.0 [facility] Comment on above: Performed By: #### L [id number] ####Medical Transcriptionist: COURTNEY BENNETT ([id number])[address] MCHC 32.3 % Normal 30.5-36.0 [facility] Comment on above: Performed By: #### L [id number] ####Medical Transcriptionist: COURTNEY BENNETT ([id number])[address] MCV (RBC) [Entitic vol] 85.3 fL Normal 77.0-99.0 [facility] Comment on above: Performed By: #### L [id number] ####Medical Transcriptionist: COURTNEY BENNETT ([id number])[facility])[address] [place] [address] Platelet mean volume (Bld) [Entitic vol] 11.7 fL Normal 9.0-12.7 [facility] Comment on above: Performed By: #### L [id number] ####Medical Transcriptionist: COURTNEY BENNETT ([id number])[facility] ([facility])[address] [place] [address] Platelets (Bld) [#/Vol] 254 10*3/uL Normal 140-440 [facility] Comment on above: Performed By: #### L [id number] ####Medical Transcriptionist: COURTNEY BENNETT ([phone])[facility])[address] [place] [address] RBC (Bld) [#/Vol] 3.74 10*6/uL Low 4.40-5.90 [facility] Comment on above: Performed By: #### L [id number] ####Medical Transcriptionist: COURTNEY BENNETT ([id number])[facility])[address] [place] [address] WBC (Bld) [#/Vol] 11.6 10*3/uL High 3.6-10.7 [facility] Comment on above: Performed By: #### L [id number] ####Medical Transcriptionist: COURTNEY BENNETT ([id number])[facility])[address] [place] [address] CBC panel Auto (Bld)on 01-29 Erythrocyte distribution width (RBC) [Ratio] 14.1 % 11.5 - 15.0 % [facility] Hematocrit (Bld) [Volume fraction] 31.9 % Low 40.0 - 52.0 % [facility] Hemoglobin (Bld) [Mass/Vol] 10.3 g/dL Low 13.0 - 18.0 g/dL [facility] Interpretation and review of laboratory results Abnormal [facility] MCH (RBC) [Entitic mass] 27.5 pg 26.0 - 34.0 pg [facility] MCHC (RBC) [Mass/Vol] 32.3 % 30.5 - 36.0 % [facility] MCV (RBC) [Entitic vol] 85.3 fL 77.0 - 99.0 fL [facility] Platelet mean volume (Bld) [Entitic vol] 11.7 fL 9.0 - 12.7 fL [facility] Platelets (Bld) [#/Vol] 254 10*3/uL 140 - 440 10*3/uL [facility] RBC (Bld) [#/Vol] 3.74 10*6/uL Low 4.40 - 5.9 0 10*6/uL [facility] WBC (Bld) [#/Vol] 11.6 10*3/uL High 3.6 - 10.7 10*3/uL [facility] COMPREHENSIVE METABOLIC PANE Daniel 01-30-2024 Albumin [Mass/Vol] 3.9 g/dL Normal 3.5-5.0 [facility] Comment on above: Performed By: #### L [id number] ####Medical Transcriptionist: COURTNEY BENNETT ([id number])[facility] ([facility])[address] [place] [address] ALP [Catalytic activity/Vol] 50 U/L Normal 38-126 [facility] Comment on above: Performed By: #### L AB17 ####Medical Transcriptionist: COURTNEY BENNETT ([id number])[facility] ([facility])[address] [place] [address] ALT [Catalytic activity/Vol] 10 U/L Normal 0-49 [facility] Comment on above: Performed By: #### L [id number] ####Medical Transcriptionist: COURTNEY BENNETT ([id number])[facility] ([facility])[address] [place] [address] Anion gap [Moles/Vol] 12 mmol/L Normal 3-13 [facility] Comment on above: Performed By: #### L [id number] ####Medical Transcriptionist: COURTNEY BENNETT ([id number])[facility] ([facility])[address] [place] [address] AST [Catalytic activity/Vol] 41 U/L Normal 15-46 [facility] Comment on above: Performed By: #### L [id number] ####Medical Transcriptionist: COURTNEY BENNETT ([id number])[facility])[address] [place] [address] Bilirubin [Mass/Vol] 1.4 mg/dL High 0.2-1.3 [facility] Comment on above: Performed By: #### L AB17 ####Medical Transcriptionist: COURTNEY BENNETT ([id number])[facility] ([facility])[address] [place] [address] Calcium [Mass/Vol] 8.6 mg/dL Normal 8.4-10.4 [facility] Comment on above: Performed By: #### L [id number] ####Medical Transcriptionist: COURTNEY BENNETT ([id number])[facility])[address] [place] [address] Chloride [Moles/Vol] 104 mmol/L Normal 98-107 [facility] Comment on above: Performed By: #### L [id number] ####Medical Transcriptionist: COURTNEY BENNETT ([id number])[facility] ([facility])[address] [place] [address] CO2 [Moles/Vol] 21 mmol/L Low 22-30 [facility] Comment on above: Performed By: #### L [id number] ####Medical Transcriptionist: COURTNEY BENNETT ([id number])[facility])[address] [place] [address] Creatinine [Mass/Vol] 2.79 mg/dL High 0.66-1.[address] [facility] Comment on above: Performed By: #### L [id number] ####Medical Transcriptionist: COURTNEY BENNETT ([id number])[facility])[address] [place] [address] GLOMERULAR FILTRATION RATE ML/MIN/1.73 SQ M.PREDICTED 22.8 mL/min/1.73m*2 Low >60.0 [facility] Comment on above: Result Comment: Calc ulation based on the Chronic Kidney Disease Epidemiology Collaboration (CKD-EPI) equation refit without adjustment for raceORDER COMMENTS:Slightly Hemolyzed. Interpret K+, ALKP, AST with caution. Performed By: #### L [id number] ####Medical Transcriptionist: COURTNEY BENNETT ([id number])[facility])[address] [place] [address] Glucose [Mass/Vol] 119 mg/dL High 70-100 [facility] Comment on above: Performed By: #### L [id number] ####Medical Transcriptionist: COURTNEY BENNETT ([id number])[facility] ([facility])[address] [place] [address] Potassium [Moles/Vol] 5.2 mmol/L High 3.5-5.1 [facility] Comment on above: Performed By: #### L [id number] ####Medical Transcriptionist: COURTNEY BENNETT ([id number])[facility])[address] [place] [address] Protein [Mass/Vol] 7.2 g/dL Normal 6.3-8.2 [facility] Comment on above: Performed By: #### L [id number] ####Medical Transcriptionist: COURTNEY BENNETT ([id number])[facility])[address] [place] [address] Sodium [Moles/Vol] 137 mmol/L Normal 135-145 [facility] Comment on above: Performed By: #### L [id number] ####Medical Transcriptionist: COURTNEY BENNETT ([id number])[facility])[address] [place] [address] Urea nitrogen [Mass/Vol] 63 mg/dL High 9-20 [facility] Comment on above: Performed By: #### L [id number] ####Medical Transcriptionist: COURTNEY BENNETT ([id number])[facility])[address] [place] [address] Comprehensive metabolic 1998 panelOrdered By: Ivon Jones on 01-30-2024 Albumin [Mass/Vol] 3.9 g/dL 3.5 - 5.0 g/dL [facility] ALP [Catalytic activity/Vol] 50 U/L 38 - 126 U/L [facility] ALT [Catalytic activity/Vol] 10 U/L 0 - 49 U/L [facility] Anion gap [Moles/Vol] 12 mmol/L 3 - 13 mmol/L [facility] AST [Catalytic activity/Vol] 41 U/L 15 - 46 U/L [facility] Bilirubin [Mass/Vol] 1.4 mg/dL High 0.2 - 1 .3 mg/dL [facility] Calcium [Mass/Vol] 8.6 mg/dL 8.4 - 10. 4 mg/dL [facility] Chloride [Moles/Vol] 104 mmol/L 98 - 10 7 mmol/L [facility] CO2 [Moles/Vol] 21 mmol/L Low 22 - 30 mmol/L [facility] Creatinine [Mass/Vol] 2.79 mg/dL High 0.66 - 1.25 mg/dL [facility] GFR/1.73 sq M.predicted (S/P/Bld) [Vol rate/Area] 22.8 mL/min Low - PINF [facility] Glucose [Mass/Vol] 119 mg/dL High 70 - 100 mg/dL [facility] Interpretation and review of laboratory results Abnormal [facility] Potassium [Moles/Vol] 5.2 mmol/L High 3.5 - 5.1 mmol/L [facility] Protein [Mass/Vol] 7.2 g/dL 6.3 - 8.2 g/dL [facility] Sodium [Moles/Vol] 137 mmol/L 135 - 145 mmol/L [facility] Urea nitrogen [Mass/Vol] 63 mg/dL High 9 - 20 mg/dL [facility] IDNon 01-30-2024 IDN Normal [facility] Laboratory - Chemistry and C hemistry - challengeon 01-30-2024 Glucose [Mass/Vol] 193 mg/dL High 70 - 100 mg/dL [facility] Glucose [Mass/Vol] 360 mg/dL High 70 - 100 mg/dL [facility] Glucose [Mass/Vol] 141 mg/dL High 70 - 100 mg/dL [facility] Glucose [Mass/Vol] 126 mg/dL High 70 - 100 mg/dL [facility] No Panel Informationon 01-29 Interpretation and review of laboratory results Abnormal [facility] Interpretation and review of laboratory results Abnormal [facility] Interpretation and review of laboratory results Abnormal [facility] Interpretation and review of laboratory results Abnormal [facility] Progress Noteon 01-30-2024 Progress Note [facility] Progress Note Normal [facility] Progress Note Normal [facility] Progress Note Normal [facility] Progress Note Normal [facility] Progress Note Normal [facility] Progress Note Normal [facility] XR CHEST 1 VIEWon 01-30-2024 XR CHEST 1 VIEW Normal [facility] XR Chest Single viewon 01-29 [facility] Radiology Study observation (narrative) [facility] CARECOORDon 01-29-2024 CAR[place]OORD Normal [facility] CBC (HEMOGRAM)on 01-29-2024 Erythrocyte distribution width (RBC) [Ratio] 14.0 % Normal 11.5-15.0 [facility] Comment on above: Performed By: #### L [id number] ####Medical Transcriptionist: COURTNEY BENNETT ([id number])[address] Hematocrit (Bld) [Volume fraction] 32.5 % Low 40.0-52.0 [facility] Comment on above: Performed By: #### L [id number] ####Medical Transcriptionist: COURTNEY BENNETT ([id number])[address] Hemoglobin (Bld) [Mass/Vol] 10.4 g/dL Low 13.0-18.0 [facility] Comment on above: Performed By: #### L [id number] ####Medical Transcriptionist: COURTNEY BENNETT ([id number])[facility])[address] [place] [address] MCH (RBC) [Entitic mass] 27.9 pg Normal 26.0-34.0 [facility] Comment on above: Performed By: #### L [id number] ####Medical Transcriptionist: COURTNEY BENNETT ([id number])[facility] ([facility])[address] [place] [address] MCHC 32.0 % Normal 30.5-36.0 [facility] Comment on above: Performed By: #### L [id number] ####Medical Transcriptionist: COURTNEY BENNETT ([id number])[facility] ([facility])[address] [place] [address] MCV (RBC) [Entitic vol] 87.1 fL Normal 77.0-99.0 [facility] Comment on above: Performed By: #### L [id number] ####Medical Transcriptionist: COURTNEY BENNETT ([id number])[facility])[address] [place] [address] Platelet mean volume (Bld) [Entitic vol] 11.8 fL Normal 9.0-12.7 [facility] Comment on above: Performed By: #### L [id number] ####Medical Transcriptionist: COURTNEY BENNETT ([id number])[facility] ([facility])[address] [place] [address] [place] Platelets (Bld) [#/Vol] 202 10*3/uL Normal 140-440 [facility] Comment on above: Performed By: #### L [id number] ####Medical Transcriptionist: COURTNEY BENNETT ([id number])[facility])[address] [place] [address] RBC (Bld) [#/Vol] 3.73 10*6/uL Low 4.40-5.90 [facility] Comment on above: Performed By: #### L [id number] ####Medical Transcriptionist: COURTNEY BENNETT ([id number])[facility] ([facility])[address] [place] [address] [place] WBC (Bld) [#/Vol] 10.1 10*3/uL Normal 3.6-10.7 [facility] Comment on above: Performed By: #### L [id number] ####Medical Transcriptionist: COURTNEY BENNETT ([id number])[facility] ([facility])[address] [place] [address] CBC panel Auto (Bld)on 01-28 Erythrocyte distribution width (RBC) [Ratio] 14.0 % 11.5 - 15.0 % [facility] Hematocrit (Bld) [Volume fraction] 32.5 % Low 40.0 - 52.0 % [facility] Hemoglobin (Bld) [Mass/Vol] 10.4 g/dL Low 13.0 - 18.0 g/dL [facility] Interpretation and review of laboratory results Abnormal [facility] MCH (RBC) [Entitic mass] 27.9 pg 26.0 - 34.0 pg [facility] MCHC (RBC) [Mass/Vol] 32.0 % 30.5 - 36.0 % [facility] MCV (RBC) [Entitic vol] 87.1 fL 77.0 - 99.0 fL [facility] Platelet mean volume (Bld) [Entitic vol] 11.8 fL 9.0 - 12.7 fL [facility] Platelets (Bld) [#/Vol] 202 10*3/uL 140 - 440 10*3/uL [facility] RBC (Bld) [#/Vol] 3.73 10*6/uL Low 4.40 - 5.9 0 10*6/uL [facility] WBC (Bld) [#/Vol] 10.1 10*3/uL 3.6 - 10.7 10*3/uL [facility] COMPREHENSIVE METABOLIC PANE Daniel 01-29-2024 Albumin [Mass/Vol] 3.7 g/dL Normal 3.5-5.0 [facility] Comment on above: Performed By: #### L [id number], [id number] ####Medical Transcriptionist: COURTNEY BENNETT ([id number])[facility])[address] [place] [address] [place] ALP [Catalytic activity/Vol] 54 U/L Normal 38-126 [facility] Comment on above: Performed By: #### L AB129, LAB17 ####Medical Transcriptionist: COURTNEY BENNETT ([id number])[facility])[address] [place] [address] ALT [Catalytic activity/Vol] 8 U/L Normal 0-49 [facility] Comment on above: Performed By: #### L AB129, LAB17 ####Medical Transcriptionist: COURTNEY BENNETT ([id number])[facility] ([facility])[address] [place] [address] Anion gap [Moles/Vol] 12 mmol/L Normal 3-[address] [facility] Comment on above: Performed By: #### L AB129, LAB17 ####Medical Transcriptionist: COURTNEY BENNETT ([id number])[facility] ([facility])[address] [place] [address] AST [Catalytic activity/Vol] 40 U/L Normal 15-46 [facility] Comment on above: Performed By: #### L AB129, LAB17 ####Medical Transcriptionist: COURTNEY BENNETT ([id number])[facility] ([facility])[address] [place] [address] Bilirubin [Mass/Vol] 1.2 mg/dL Normal 0.2-1.3 [facility] Comment on above: Performed By: #### L AB129, LAB17 ####Medical Transcriptionist: COURTNEY BENNETT ([id number])[facility] ([facility])[address] [place] [address] Calcium [Mass/Vol] 8.6 mg/dL Normal 8.4-10.4 [facility] Comment on above: Performed By: #### L AB129, LAB17 ####Medical Transcriptionist: COURTNEY BENNETT ([id number])[facility] ([facility])[address] [place] [address] [place] Chloride [Moles/Vol] 103 mmol/L Normal 98-107 [facility] Comment on above: Performed By: #### L AB129, LAB17 ####Medical Transcriptionist: COURTNEY BENNETT ([id number])[facility] ([facility])[address] [place] [address] [place] CO2 [Moles/Vol] 20 mmol/L Low 22-30 [facility] Comment on above: Performed By: #### L AB129, LAB17 ####Medical Transcriptionist: COURTNEY BENNETT ([id number])[facility])[address] [place] [address] [place] Creatinine [Mass/Vol] 2.93 mg/dL High 0.66-1.25 [facility] Comment on above: Performed By: #### L AB129, LAB17 ####Medical Transcriptionist: COURTNEY BENNETT ([id number])[facility])[address] [place] [address] GLOMERULAR FILTRATION RATE ML/MIN/1.73 SQ M.PREDICTED 21.5 mL/min/1.73m*2 Low >60.0 [facility] Comment on above: Result Comment: Calc ulation based on the Chronic Kidney Disease Epidemiology Collaboration (CKD-EPI) equation refit without adjustment for race Performed By: #### L AB129, LAB17 ####Medical Transcriptionist: COURTNEY BENNETT ([id number])[facility] ([facility])[address] [place] [address] Glucose [Mass/Vol] 124 mg/dL High 70-100 [facility] Comment on above: Performed By: #### L AB129, LAB17 ####Medical Transcriptionist: COURTNEY BENNETT ([id number])[facility] ([facility])[address] [place] [address] [place] Potassium [Moles/Vol] 4.1 mmol/L Normal 3.5-5.1 [facility] Comment on above: Performed By: #### L AB129, LAB17 ####Medical Transcriptionist: COURTNEY BENNETT ([id number])[facility])[address] [place] [address] [place] Protein [Mass/Vol] 6.8 g/dL Normal 6.3-8.2 [facility] Comment on above: Performed By: #### L AB129, LAB17 ####Medical Transcriptionist: COURTNEY BENNETT ([id number])[facility])[address] [place] [address] Sodium [Moles/Vol] 136 mmol/L Normal 135-145 [facility] Comment on above: Performed By: #### L AB129, LAB17 ####Medical Transcriptionist: COURTNEY BENNETT ([id number])[facility] ([facility])[address] [place] [address] Urea nitrogen [Mass/Vol] 56 mg/dL High 9-20 [facility] Comment on above: Performed By: #### L AB129, LAB17 ####Medical Transcriptionist: COURTNEY BENNETT ([id number])[facility] ([facility])[address] [place] [address] Comprehensive metabolic 1998 panelon 01-29-2024 Albumin [Mass/Vol] 3.7 g/dL 3.5 - 5.0 g/dL [facility] ALP [Catalytic activity/Vol] 54 U/L 38 - 126 U/L [facility] ALT [Catalytic activity/Vol] 8 U/L 0 - 49 U/L [facility] Anion gap [Moles/Vol] 12 mmol/L 3 - 13 mmol/L [facility] AST [Catalytic activity/Vol] 40 U/L 15 - 46 U/L [facility] Bilirubin [Mass/Vol] 1.2 mg/dL 0.2 - 1 .3 mg/dL [facility] Calcium [Mass/Vol] 8.6 mg/dL 8.4 - 10. 4 mg/dL [facility] Chloride [Moles/Vol] 103 mmol/L 98 - 10 7 mmol/L [facility] CO2 [Moles/Vol] 20 mmol/L Low 22 - 30 mmol/L [facility] Creatinine [Mass/Vol] 2.93 mg/dL High 0.66 - 1.25 mg/dL [facility] GFR/1.73 sq M.predicted (S/P/Bld) [Vol rate/Area] 21.5 mL/min Low - PINF [facility] Glucose [Mass/Vol] 124 mg/dL High 70 - 100 mg/dL [facility] Interpretation and review of laboratory results Abnormal [facility] Potassium [Moles/Vol] 4.1 mmol/L 3.5 - 5.1 mmol/L [facility] Protein [Mass/Vol] 6.8 g/dL 6.3 - 8.2 g/dL [facility] Sodium [Moles/Vol] 136 mmol/L 135 - 145 mmol/L [facility] Urea nitrogen [Mass/Vol] 56 mg/dL High 9 - 20 mg/dL [facility] Consulton 01-29-2024 Consult Normal [facility] IDNon 01-29-2024 IDN Normal [facility] Laboratory - Chemistry and C hemistry - challengeon 01-29-2024 Glucose [Mass/Vol] 209 mg/dL High 70 - 100 mg/dL [facility] Glucose [Mass/Vol] 129 mg/dL High 70 - 100 mg/dL [facility] TSH Qn 7.423 m[IU]/L High [facility] Gl[facility] [Mass/Vol] 134 mg/dL High 70 - 100 mg/dL [facility] No Panel Informationon 01-28 Interpretation and review of laboratory results Abnormal [facility] Interpretation and review of laboratory results Abnormal [facility] Interpretation and review of laboratory results Abnormal [facility] Progress Noteon 01-29-2024 Progress Note Normal [facility] Progress Note Patient went back into Afib- rate controlled. He is asymptomatic. Discussed with Dr. Johnson- epifanio Teixeira. 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/29/24 Normal [facility] Progress Note Normal [facility] Progress Note Normal [facility] Progress Note Normal [facility] Progress Note Normal [facility] Progress Note Normal [facility] THYROID STIMULATING HORMONEo n 01-29-2024 THYROID STIMULATING HORMONE 7.423 uIU/mL High 0.465-4.680 [facility] Comment on above: Order Comment: Add o n the specimen from this morning Performed By: #### L [id number], LAB17 ####Medical Transcriptionist: COURTNEY BENNETT ([id number])[facility] ([address] TSH Qnon 01-29-2024 Interpretation and review of laboratory results Abnormal [facility] XR CHEST 1 VIEWon 01-29-2024 XR CHEST 1 VIEW Normal [facility] XR Chest Single viewon 01-28 [facility] Radiology Study observation (narrative) [facility] XR Chest Single viewOrdered By: Ambrose Valdez on 01-29-2024 [facility] Work Phone: BASIC METABOLIC PANELon 090 Anion gap [Moles/Vol] 8 mmol/L Normal 3-13 [facility] Comment on above: Performed By: #### L AB15 ####Medical Transcriptionist: COURTNEY BENNETT ([id number])[facility] ([facility])[address] [place] [address] Calcium [Mass/Vol] 8.1 mg/dL Low 8.4-10.4 [facility] Comment on above: Performed By: #### L AB15 ####Medical Transcriptionist: COURTNEY BENNETT ([id number])[facility] ([facility])[address] [place] [address] Chloride [Moles/Vol] 100 mmol/L Normal 98-107 [facility] Comment on above: Performed By: #### L AB15 ####Medical Transcriptionist: COURTNEY BENNETT ([id number])[facility] ([facility] [facility])[address] [place] [address] CO2 [Moles/Vol] 24 mmol/L Normal 22-30 [facility] Comment on above: Performed By: #### L AB15 ####Medical Transcriptionist: COURTNEY BENNETT ([phone])[facility] ([facility])[address] [place] [address] Creatinine [Mass/Vol] 3.09 mg/dL High 0.66-1.25 [facility] Comment on above: Performed By: #### L AB15 ####Medical Transcriptionist: COURTNEY BENNETT ([phone])[facility] ([facility])[address] [place] [address] GLOMERULAR FILTRATION RATE ML/MIN/1.73 SQ M.PREDICTED 20.1 mL/min/1.73m*2 Low >60.0 [facility] Comment on above: Result Comment: Calc ulation based on the Chronic Kidney Disease Epidemiology Collaboration (CKD-EPI) equation refit without adjustment for race Performed By: #### L AB15 ####Medical Transcriptionist: COURTNEY [id number])[facility] ([facility])[address] [place] [address] Glucose [Mass/Vol] 243 mg/dL High 70-100 [facility] Comment on above: Performed By: #### L AB15 ####Medical Transcriptionist: COURTNEY BENNTET ([phone])[facility] ([facility])[address] [place] [address] Potassium [Moles/Vol] 4.6 mmol/L Normal 3.5-5.[address] [facility] Comment on above: Performed By: #### L AB15 ####Medical Transcriptionist: COURTNEY BENNETT ([phone])[facility] ([facility])[address] [place] [address] Sodium [Moles/Vol] 132 mmol/L Low 135-145 [facility] Comment on above: Performed By: #### L AB15 ####Medical Transcriptionist: COURTNEY BENNETT ([phone])[facility] ([facility])[address] [place] [address] Urea nitrogen [Mass/Vol] 54 mg/dL High 9-20 [facility] Comment on above: Performed By: #### L AB15 ####Medical Transcriptionist: COURTNEY BENNETT ([id number])[facility])[address] [place] [address] Basic metabolic 1998 panelOr dered By: Aguila Swab on 01-28-2024 Anion gap [Moles/Vol] 8 mmol/L 3 - 13 mmol/L [facility] Calcium [Mass/Vol] 8.1 mg/dL Low 8.4 - 10. 4 mg/dL [facility] Chloride [Moles/Vol] 100 mmol/L 98 - 10 7 mmol/L [facility] CO2 [Moles/Vol] 24 mmol/L 22 - 30 mmol/L [facility] Creatinine [Mass/Vol] 3.09 mg/dL High 0.66 - 1.25 mg/dL [facility] GFR/1.73 sq M.predicted (S/P/Bld) [Vol rate/Area] 20.1 mL/min Low - PINF [facility] Glucose [Mass/Vol] 243 mg/dL High 70 - 100 mg/dL [facility] Interpretation and review of laboratory results Abnormal [facility] Potassium [Moles/Vol] 4.6 mmol/L 3.5 - 5.1 mmol/L [facility] Sodium [Moles/Vol] 132 mmol/L Low 135 - 145 mmol/L [facility] Urea nitrogen [Mass/Vol] 54 mg/dL High 9 - 20 mg/dL [facility] CBC (HEMOGRAM)on 01-28-2024 Erythrocyte distribution width (RBC) [Ratio] 13.8 % Normal 11.5-15.0 [facility] Comment on above: Performed By: #### L [id number] ####Medical Transcriptionist: COURTNEY BENNETT ([id number])[facility])[address] [place] [address] Hematocrit (Bld) [Volume fraction] 24.5 % Low 40.0-52.0 [facility] Comment on above: Performed By: #### L [id number] ####Medical Transcriptionist: COURTNEY BENNETT ([phone])[facility])[address] [place] [address] Hemoglobin (Bld) [Mass/Vol] 8.1 g/dL Low 13.0-18.0 [facility] Comment on above: Performed By: #### L [id number] ####Medical Transcriptionist: COURTNEY BENNETT ([id number])[facility])[address] [place] [address] MCH (RBC) [Entitic mass] 28.0 pg Normal 26.0-34.0 [facility] Comment on above: Performed By: #### L [id number] ####Medical Transcriptionist: COURTNEY BENNETT ([id number])[facility])[address] [place] [address] MCHC 33.1 % Normal 30.5-36.0 [facility] Comment on above: Performed By: #### L [id number] ####Medical Transcriptionist: COURTNEY BENNETT ([id number])[facility])[address] [place] [address] MCV (RBC) [Entitic vol] 84.8 fL Normal 77.0-99.0 [facility] Comment on above: Performed By: #### L [id number] ####Medical Transcriptionist: COURTNEY BENNETT ([id number])[facility])[address] [place] [address] Platelet mean volume (Bld) [Entitic vol] 12.3 fL Normal 9.0-12.7 [facility] Comment on above: Performed By: #### L [id number] ####Medical Transcriptionist: COURTNEY BENNETT ([id number])[facility] ([facility])[address] [place] [address] Platelets (Bld) [#/Vol] 162 10*3/uL Normal 140-440 [facility] Comment on above: Performed By: #### L [id number] ####Medical Transcriptionist: COURTNEY BENNETT ([id number])[facility])[address] [place] [address] RBC (Bld) [#/Vol] 2.89 10*6/uL Low 4.40-5.90 [facility] Comment on above: Performed By: #### L [id number] ####Medical Transcriptionist: COURTNEY BENNETT ([id number])[facility])[address] [place] [address] WBC (Bld) [#/Vol] 7.9 10*3/uL Normal 3.6-10.7 [facility] Comment on above: Performed By: #### L [id number] ####Medical Transcriptionist: COURTNEY BENNETT ([id number])[facility] ([facility])[address] [place] [address] CBC panel Auto (Bld)on 01-27 Erythrocyte distribution width (RBC) [Ratio] 13.8 % 11.5 - 15.0 % [facility] Hematocrit (Bld) [Volume fraction] 24.5 % Low 40.0 - 52.0 % [facility] Hemoglobin (Bld) [Mass/Vol] 8.1 g/dL Low 13.0 - 18.0 g/dL [facility] Interpretation and review of laboratory results Abnormal [facility] MCH (RBC) [Entitic mass] 28.0 pg 26.0 - 34.0 pg [facility] MCHC (RBC) [Mass/Vol] 33.1 % 30.5 - 36.0 % [facility] MCV (RBC) [Entitic vol] 84.8 fL 77.0 - 99.0 fL [facility] Platelet mean volume (Bld) [Entitic vol] 12.3 fL 9.0 - 12.7 fL [facility] Platelets (Bld) [#/Vol] 162 10*3/uL 140 - 440 10*3/uL [facility] RBC (Bld) [#/Vol] 2.89 10*6/uL Low 4.40 - 5.9 0 10*6/uL [facility] WBC (Bld) [#/Vol] 7.9 10*3/uL 3.6 - 10.7 10*3/uL [facility] COMPREHENSIVE METABOLIC PANE Daniel 01-28-2024 Albumin [Mass/Vol] 3.3 g/dL Low 3.5-5.0 [facility] Comment on above: Performed By: #### L [id number] ####Medical Transcriptionist: COURTNEY BENNETT ([phone])[facility])[address] [place] [address] ALP [Catalytic activity/Vol] 48 U/L Normal 38-126 [facility] Comment on above: Performed By: #### L AB17 ####Medical Transcriptionist: COURTNEY BENNETT ([id number])[facility] ([facility])[address] [place] [address] ALT [Catalytic activity/Vol] 6 U/L Normal 0-49 [facility] Comment on above: Performed By: #### L AB17 ####Medical Transcriptionist: COURTNEY BENNETT ([id number])[facility] ([facility])[address] [place] [address] Anion gap [Moles/Vol] 16 mmol/L High 3-[address] [facility] Comment on above: Performed By: #### L [id number] ####Medical Transcriptionist: COURTNEY BENNETT ([id number])[facility])[address] [place] [address] AST [Catalytic activity/Vol] 36 U/L Normal 15-46 [facility] Comment on above: Performed By: #### L [id number] ####Medical Transcriptionist: COURTNEY BENNETT ([id number])[facility])[address] [place] [address] Bilirubin [Mass/Vol] 0.9 mg/dL Normal 0.2-1.3 [facility] Comment on above: Performed By: #### L [id number] ####Medical Transcriptionist: COURTNEY BENNETT ([id number])[facility] ([facility])[address] [place] [address] Calcium [Mass/Vol] 7.5 mg/dL Low 8.4-10.4 [facility] Comment on above: Performed By: #### L [id number] ####Medical Transcriptionist: COURTNEY BENNETT ([id number])[facility] ([facility])[address] [place] [address] Chloride [Moles/Vol] 92 mmol/L Low 98-107 [facility] Comment on above: Performed By: #### L AB17 ####Medical Transcriptionist: COURTNEY BENNETT ([id number])[facility] ([facility])[address] [place] [address] CO2 [Moles/Vol] 22 mmol/L Normal 22-30 [facility] Comment on above: Performed By: #### L [id number] ####Medical Transcriptionist: COURTNEY BENNETT ([phone])[facility] ([facility])[address] [place] [address] Creatinine [Mass/Vol] 3.22 mg/dL High 0.66-1.[address] [facility] Comment on above: Performed By: #### L [id number] ####Medical Transcriptionist: COURTNEY BENNETT ([phone])[facility])[address] [place] [address] GLOMERULAR FILTRATION RATE ML/MIN/1.73 SQ M.PREDICTED 19.2 mL/min/1.73m*2 Low >60.0 [facility] Comment on above: Result Comment: Calc ulation based on the Chronic Kidney Disease Epidemiology Collaboration (CKD-EPI) equation refit without adjustment for race Performed By: #### L [id number] ####Medical Transcriptionist: COURTNEY BENNETT ([id number])[facility])[address] [place] [address] Glucose [Mass/Vol] 353 mg/dL High 70-100 [facility] Comment on above: Performed By: #### L [id number] ####Medical Transcriptionist: COURTNEY BENNETT ([id number])[facility] ([facility])[address] [place] [address] Potassium [Moles/Vol] 3.2 mmol/L Low 3.5-5.1 [facility] Comment on above: Performed By: #### L [id number] ####Medical Transcriptionist: COURTNEY BENNETT ([phone])[facility])[address] [place] [address] Protein [Mass/Vol] 5.4 g/dL Low 6.3-8.2 [facility] Comment on above: Performed By: #### L [id number] ####Medical Transcriptionist: COURTNEY BENNETT ([id number])[facility] ([facility])[address] [place] [address] Sodium [Moles/Vol] 129 mmol/L Low 135-145 [facility] Comment on above: Performed By: #### L [id number] ####Medical Transcriptionist: COURTNEY BENNETT ([phone])[facility])[address] [place] [address] Urea nitrogen [Mass/Vol] 53 mg/dL High 9-20 [facility] Comment on above: Performed By: #### L [id number] ####Medical Transcriptionist: COURTNEY BENNETT ([id number])[facility])[address] [place] [address] metabolic 1998 panelon 01-28-2024 Albumin [Mass/Vol] 3.3 g/dL Low 3.5 - 5.0 g/dL [facility] ALP [Catalytic activity/Vol] 48 U/L 38 - 126 U/L [facility] ALT [Catalytic activity/Vol] 6 U/L 0 - 49 U/L [facility] Anion gap [Moles/Vol] 16 mmol/L High 3 - 13 mmol/L [facility] AST [Catalytic activity/Vol] 36 U/L 15 - 46 U/L [facility] Bilirubin [Mass/Vol] 0.9 mg/dL 0.2 - 1 .3 mg/dL [facility] Calcium [Mass/Vol] 7.5 mg/dL Low 8.4 - 10. 4 mg/dL [facility] Chloride [Moles/Vol] 92 mmol/L Low 98 - 10 7 mmol/L [facility] CO2 [Moles/Vol] 22 mmol/L 22 - 30 mmol/L [facility] Creatinine [Mass/Vol] 3.22 mg/dL High 0.66 - 1.25 mg/dL [facility] GFR/1.73 sq M.predicted (S/P/Bld) [Vol rate/Area] 19.2 mL/min Low - PINF [facility] Glucose [Mass/Vol] 353 mg/dL High 70 - 100 mg/dL [facility] Interpretation and review of laboratory results Abnormal [facility] Potassium [Moles/Vol] 3.2 mmol/L Low 3.5 - 5.1 mmol/L [facility] Protein [Mass/Vol] 5.4 g/dL Low 6.3 - 8.2 g/dL [facility] Sodium [Moles/Vol] 129 mmol/L Low 135 - 145 mmol/L [facility] Urea nitrogen [Mass/Vol] 53 mg/dL High 9 - 20 mg/dL [facility] IDNon 01-28-2024 IDN Normal [facility] Laboratory - Chemistry and C hemistry - challengeon 01-28-2024 Glucose [Mass/Vol] 235 mg/dL High 70 - 100 mg/dL [facility] Glucose [Mass/Vol] 200 mg/dL High 70 - 100 mg/dL [facility] Glucose [Mass/Vol] 152 mg/dL High 70 - 100 mg/dL [facility] No Panel Informationon 01-27 Interpretation and review of laboratory results Abnormal [facility] Interpretation and review of laboratory results Abnormal [facility] Interpretation and review of laboratory results Abnormal [facility] Progress Noteon 01-28-2024 Progress Note Normal [facility] Progress Note Normal [facility] Progress Note Normal [facility] XR CHEST 1 VIEWon 01-28-2024 XR CHEST 1 VIEW [facility] XR Chest Single viewon 01-27 [facility] RAD[facility] RADIOLOGY [facility] Radiology Study observation (narrative) Ezio donovan CBC (HEMOGRAM)on 01-27-2024 Erythrocyte distribution width (RBC) [Ratio] 14.0 % Normal 11.5-15.0 [facility] Comment on above: Performed By: #### L [id number] ####Medical Transcriptionist: COURTNEY BENNETT ([phone])[facility])[address] [place] [address] Hematocrit (Bld) [Volume fraction] 30.1 % Low 40.0-52.0 [facility] Comment on above: Performed By: #### L [id number] ####Medical Transcriptionist: COURTNEY BENNETT ([phone])[facility])[address] [place] [address] Hemoglobin (Bld) [Mass/Vol] 10.0 g/dL Low 13.0-18.0 [facility] Comment on above: Performed By: #### L [id number] ####Medical Transcriptionist: COURTNEY BENNETT ([phone])[facility])[address] [place] [address] MCH (RBC) [Entitic mass] 28.2 pg Normal 26.0-34.0 [facility] Comment on above: Performed By: #### L [id number] ####Medical Transcriptionist: COURTNEY BENNETT ([phone])[facility])[address] [place] [address] MCHC 33.2 % Normal 30.5-36.0 [facility] Comment on above: Performed By: #### L [id number] ####Medical Transcriptionist: COURTNEY BENNETT ([phone])[facility])[address] [place] [address] MCV (RBC) [Entitic vol] 85.0 fL Normal 77.0-99.0 [facility] Comment on above: Performed By: #### L [id number] ####Medical Transcriptionist: COURTNEY BENNETT ([phone])[facility])[address] [place] [address] Platelet mean volume (Bld) [Entitic vol] 12.5 fL Normal 9.0-12.7 [facility] Comment on above: Performed By: #### L [id number] ####Medical Transcriptionist: COURTNEY BENNETT ([id number])[facility] ([facility])[address] [place] [address] Platelets (Bld) [#/Vol] 171 10*3/uL Normal 140-440 [facility] Comment on above: Performed By: #### L [id number] ####Medical Transcriptionist: COURTNEY BENNETT ([id number])[facility])[address] [place] [address] RBC (Bld) [#/Vol] 3.54 10*6/uL Low 4.40-5.90 [facility] Comment on above: Performed By: #### L [id number] ####Medical Transcriptionist: COURTNEY BENNETT ([id number])[facility] ([facility])[address] [place] [address] WBC (Bld) [#/Vol] 10.5 10*3/uL Normal 3.6-10.7 [facility] Comment on above: Performed By: #### L [id number] ####Medical Transcriptionist: COURTNEY BENNETT ([phone])[facility] ([facility])[address] [place] [address] CBC panel Auto (Bld)Ordered By: Jaimie Kearney on 01-27-2024 Erythrocyte distribution width (RBC) [Ratio] 14.0 % 11.5 - 15.0 % [facility] Hematocrit (Bld) [Volume fraction] 30.1 % Low 40.0 - 52.0 % [facility] Hemoglobin (Bld) [Mass/Vol] 10.0 g/dL Low 13.0 - 18.0 g/dL [facility] Interpretation and review of laboratory results Abnormal [facility] MCH (RBC) [Entitic mass] 28.2 pg 26.0 - 34.0 pg [facility] MCHC (RBC) [Mass/Vol] 33.2 % 30.5 - 36.0 % [facility] MCV (RBC) [Entitic vol] 85.0 fL 77.0 - 99.0 fL [facility] Platelet mean volume (Bld) [Entitic vol] 12.5 fL 9.0 - 12.7 fL [facility] Platelets (Bld) [#/Vol] 171 10*3/uL 140 - 440 10*3/uL [facility] RBC (Bld) [#/Vol] 3.54 10*6/uL Low 4.40 - 5.9 0 10*6/uL [facility] WBC (Bld) [#/Vol] 10.5 10*3/uL 3.6 - 10.7 10*3/uL [facility] COMPREHENSIVE METABOLIC PANE Daniel 01-27-2024 Albumin [Mass/Vol] 3.9 g/dL Normal 3.5-5.0 [facility] Comment on above: Performed By: #### L [id number] ####Medical Transcriptionist: COURTNEY BENNETT ([id number])[address] ALP [Catalytic activity/Vol] 58 U/L Normal 38-126 [facility] Comment on above: Performed By: #### L [id number] ####Medical Transcriptionist: COURTNEY BENNETT ([phone])[facility])[address] [place] [address] ALT [Catalytic activity/Vol] 8 U/L Normal 0-49 [facility] Comment on above: Performed By: #### L [id number] ####Medical Transcriptionist: COURTNEY BENNETT ([id number])[address] Anion gap [Moles/Vol] 13 mmol/L Normal 3-13 [facility] Comment on above: Performed By: #### L AB17 ####Medical Transcriptionist: COURTNEY BENNETT ([phone])[facility])[address] [place] [address] AST [Catalytic activity/Vol] 41 U/L Normal 15-46 [facility] Comment on above: Performed By: #### L [id number] ####Medical Transcriptionist: COURTNEY BENNETT ([id number])[facility] ([facility])[address] [place] [address] Bilirubin [Mass/Vol] 0.8 mg/dL Normal 0.2-1.3 [facility] Comment on above: Performed By: #### L AB17 ####Medical Transcriptionist: COURTNEY BENNETT ([id number])[facility] ([facility])[address] [place] [address] Calcium [Mass/Vol] 8.6 mg/dL Normal 8.4-10.4 [facility] Comment on above: Performed By: #### L [id number] ####Medical Transcriptionist: COURTNEY BENNETT ([phone])[facility] ([facility])[address] [place] [address] Chloride [Moles/Vol] 101 mmol/L Normal 98-107 [facility] Comment on above: Performed By: #### L AB17 ####Medical Transcriptionist: COURTNEY BENNETT ([id number])[facility] ([facility])[address] [place] [address] CO2 [Moles/Vol] 23 mmol/L Normal 22-30 [facility] Comment on above: Performed By: #### L AB17 ####Medical Transcriptionist: COURTNEY BENNETT ([id number])[facility])[address] [place] [address] Creatinine [Mass/Vol] 3.62 mg/dL High 0.66-1.[address] [facility] Comment on above: Performed By: #### L AB17 ####Medical Transcriptionist: COURTNEY BENNETT ([phone])[facility])[address] [place] [address] [place] GLOMERULAR FILTRATION RATE ML/MIN/1.73 SQ M.PREDICTED 16.7 mL/min/1.73m*2 Low >60.0 [facility] Comment on above: Result Comment: Calc ulation based on the Chronic Kidney Disease Epidemiology Collaboration (CKD-EPI) equation refit without adjustment for race Performed By: #### L [id number] ####Medical Transcriptionist: COURTNEY BENNETT ([phone])[facility] ([facility])[address] [place] [address] Glucose [Mass/Vol] 161 mg/dL High 70-100 [facility] Comment on above: Performed By: #### L AB17 ####Medical Transcriptionist: COURTNEY BENNETT ([id number])[facility] ([facility])[address] [place] [address] Potassium [Moles/Vol] 3.6 mmol/L Normal 3.5-5.1 [facility] Comment on above: Performed By: #### L [id number] ####Medical Transcriptionist: COURTNEY BENNETT ([id number])[facility])[address] [place] [address] Protein [Mass/Vol] 6.6 g/dL Normal 6.3-8.2 [facility] Comment on above: Performed By: #### L AB17 ####Medical Transcriptionist: COURTNEY BENNETT ([phone])[facility] ([facility])[address] [place] [address] Sodium [Moles/Vol] 137 mmol/L Normal 135-145 [facility] Comment on above: Performed By: #### L [id number] ####Medical Transcriptionist: COURTNEY BENNETT ([id number])[facility])[address] [place] [address] Urea nitrogen [Mass/Vol] 53 mg/dL High 9-20 [facility] Comment on above: Performed By: #### L [id number] ####Medical Transcriptionist: COURTNEY BENNETT ([phone])[facility])[address] [place] [address] Comprehensive metabolic 1998 panelon 01-27-2024 Albumin [Mass/Vol] 3.9 g/dL 3.5 - 5.0 g/dL [facility] ALP [Catalytic activity/Vol] 58 U/L 38 - 126 U/L [facility] ALT [Catalytic activity/Vol] 8 U/L 0 - 49 U/L [facility] Anion gap [Moles/Vol] 13 mmol/L 3 - 13 mmol/L [facility] AST [Catalytic activity/Vol] 41 U/L 15 - 46 U/L [facility] Bilirubin [Mass/Vol] 0.8 mg/dL 0.2 - 1 .3 mg/dL [facility] Calcium [Mass/Vol] 8.6 mg/dL 8.4 - 10. 4 mg/dL [facility] Chloride [Moles/Vol] 101 mmol/L 98 - 10 7 mmol/L [facility] CO2 [Moles/Vol] 23 mmol/L 22 - 30 mmol/L [facility] Creatinine [Mass/Vol] 3.62 mg/dL High 0.66 - 1.25 mg/dL [facility] GFR/1.73 sq M.predicted (S/P/Bld) [Vol rate/Area] 16.7 mL/min Low - PINF [facility] Glucose [Mass/Vol] 161 mg/dL High 70 - 100 mg/dL [facility] Interpretation and review of laboratory results Abnormal [facility] Potassium [Moles/Vol] 3.6 mmol/L 3.5 - 5.1 mmol/L [facility] Protein [Mass/Vol] 6.6 g/dL 6.3 - 8.2 g/dL [facility] Sodium [Moles/Vol] 137 mmol/L 135 - 145 mmol/L [facility] Urea nitrogen [Mass/Vol] 53 mg/dL High 9 - 20 mg/dL [facility] IDNon 01-27-2024 IDN Normal [facility] IDN Normal [facility] Laboratory - Chemistry and C hemistry - challengeon 01-27-2024 Glucose [Mass/Vol] 155 mg/dL High 70 - 100 mg/dL [facility] Glucose [Mass/Vol] 206 mg/dL High 70 - 100 mg/dL [facility] Glucose [Mass/Vol] 244 mg/dL High 70 - 100 mg/dL [facility] No Panel Informationon 01-26 Interpretation and review of laboratory results Abnormal [facility] Interpretation and review of laboratory results Abnormal [facility] Interpretation and review of laboratory results Abnormal [facility] Progress Noteon 01-27-2024 Progress Note Normal [facility] Progress Note Normal [facility] Progress Note Normal [facility] Progress Note Normal [facility] Progress Note Normal [facility] Progress Note Normal [facility] XR CHEST 1 VIEWon 01-27-2024 XR CHEST 1 VIEW Normal [facility] XR Chest Single viewon 01-26 [facility] Radiology Study observation (narrative) [facility] XR Chest Single viewOrdered By: Asher King on 01-27-2024 [facility] [employer] Work Phone: CBC (HEMOGRAM)on 01-26-2024 Erythrocyte distribution width (RBC) [Ratio] 14.0 % Normal 11.5-15.0 [facility] Comment on above: Performed By: #### L [id number] ####Medical Transcriptionist: COURTNEY BENNETT ([id number])[facility])[address] [place] [address] Hematocrit (Bld) [Volume fraction] 28.6 % Low 40.0-52.0 [facility] Comment on above: Performed By: #### L [id number] ####Medical Transcriptionist: COURTNEY BENNETT ([id number])[facility])[address] [place] [address] Hemoglobin (Bld) [Mass/Vol] 9.3 g/dL Low 13.0-18.0 [facility] Comment on above: Performed By: #### L [id number] ####Medical Transcriptionist: COURTNEY BENNETT ([phone])[facility])[address] [place] [address] MCH (RBC) [Entitic mass] 28.1 pg Normal 26.0-34.0 [facility] Comment on above: Performed By: #### L [id number] ####Medical Transcriptionist: COURTNEY BENNETT ([id number])[facility])[address] [place] [address] MCHC 32.5 % Normal 30.5-36.0 [facility] Comment on above: Performed By: #### L [id number] ####Medical Transcriptionist: COURTNEY BENNETT ([id number])[facility])[address] [place] [address] MCV (RBC) [Entitic vol] 86.4 fL Normal 77.0-99.0 S [facility] Comment on above: Performed By: #### L [id number] ####Medical Transcriptionist: COURTNEY BENNETT ([id number])[facility] ([facility])[address] [place] [address] Platelet mean volume (Bld) [Entitic vol] 12.9 fL High 9.0-12.7 [facility] Comment on above: Performed By: #### L [id number] ####Medical Transcriptionist: COURTNEY BENNETT ([id number])[facility] ([facility])[address] [place] [address] Platelets (Bld) [#/Vol] 111 10*3/uL Low 140-440 [facility] Comment on above: Performed By: #### L [id number] ####Medical Transcriptionist: COURTNEY BENNETT ([id number])[facility] ([facility])[address] [place] [address] RBC (Bld) [#/Vol] 3.31 10*6/uL Low 4.40-5.90 [facility] Comment on above: Performed By: #### L [id number] ####Medical Transcriptionist: COURTNEY BENNETT ([id number])[facility] ([facility])[address] [place] [address] WBC (Bld) [#/Vol] 12.0 10*3/uL High 3.6-10.7 [facility] Comment on above: Performed By: #### L [id number] ####Medical Transcriptionist: COURTNEY BENNETT ([id number])[facility])[address] [place] [address] CBC panel Auto (Bld)on 01-25 Erythrocyte distribution width (RBC) [Ratio] 14.0 % 11.5 - 15.0 % [facility] Hematocrit (Bld) [Volume fraction] 28.6 % Low 40.0 - 52.0 % [facility] Hemoglobin (Bld) [Mass/Vol] 9.3 g/dL Low 13.0 - 18.0 g/dL [facility] Interpretation and review of laboratory results Abnormal [facility] MCH (RBC) [Entitic mass] 28.1 pg 26.0 - 34.0 pg [facility] MCHC (RBC) [Mass/Vol] 32.5 % 30.5 - 36.0 % [facility] MCV (RBC) [Entitic vol] 86.4 fL 77.0 - 99.0 fL [facility] Platelet mean volume (Bld) [Entitic vol] 12.9 fL High 9.0 - 12.7 fL [facility] Platelets (Bld) [#/Vol] 111 10*3/uL Low 140 - 440 10*3/uL [facility] RBC (Bld) [#/Vol] 3.31 10*6/uL Low 4.40 - 5.9 0 10*6/uL [facility] WBC (Bld) [#/Vol] 12.0 10*3/uL High 3.6 - 10.7 10*3/uL [facility] COMPREHENSIVE METABOLIC PANE Daniel 01-26-2024 Albumin [Mass/Vol] 3.6 g/dL Normal 3.5-5.0 [facility] Comment on above: Performed By: #### L [id number] ####Medical Transcriptionist: COURTNEY BENNETT ([id number])[address] ALP [Catalytic activity/Vol] 45 U/L Normal 38-126 [facility] Comment on above: Performed By: #### L AB17 ####Medical Transcriptionist: COURTNEY BENNETT ([id number])[facility])[address] [place] [address] ALT [Catalytic activity/Vol] 7 U/L Normal 0-49 [facility] Comment on above: Performed By: #### L [id number] ####Medical Transcriptionist: COURTNEY BENNETT ([id number])[facility])[address] [place] [address] Anion gap [Moles/Vol] 9 mmol/L Normal 3-[address] [facility] Comment on above: Performed By: #### L [id number] ####Medical Transcriptionist: COURTNEY BENNETT ([id number])[facility] ([facility])[address] [place] [address] AST [Catalytic activity/Vol] 42 U/L Normal 15-46 [facility] Comment on above: Performed By: #### L [id number] ####Medical Transcriptionist: COURTNEY BENNETT ([id number])[facility] ([facility])[address] [place] [address] Bilirubin [Mass/Vol] 0.5 mg/dL Normal 0.2-1.3 [facility] Comment on above: Performed By: #### L [id number] ####Medical Transcriptionist: COURTNEY BENNETT ([id number])[facility] ([facility])[address] [place] [address] Calcium [Mass/Vol] 8.5 mg/dL Normal 8.4-10.4 [facility] Comment on above: Performed By: #### L [id number] ####Medical Transcriptionist: COURTNEY BENNETT ([id number])[facility] ([facility])[address] [place] [address] Chloride [Moles/Vol] 101 mmol/L Normal 98-107 [facility] Comment on above: Performed By: #### L [id number] ####Medical Transcriptionist: COURTNEY BENNETT ([id number])[facility])[address] [place] [address] [place] CO2 [Moles/Vol] 24 mmol/L Normal 22-30 [facility] Comment on above: Performed By: #### L [id number] ####Medical Transcriptionist: COURTNEY BENNETT ([id number])[facility])[address] [place] [address] Creatinine [Mass/Vol] 3.57 mg/dL High 0.66-1.[address] [facility] Comment on above: Performed By: #### L [id number] ####Medical Transcriptionist: COURTNEY BENNETT ([id number])[facility])[address] [place] [address] [place] GLOMERULAR FILTRATION RATE ML/MIN/1.73 SQ M.PREDICTED 16.9 mL/min/1.73m*2 Low >60.0 [facility] Comment on above: Result Comment: Calc ulation based on the Chronic Kidney Disease Epidemiology Collaboration (CKD-EPI) equation refit without adjustment for race Performed By: #### L [id number] ####Medical Transcriptionist: COURTNEY BENNETT ([id number])[facility] ([facility])[address] [place] [address] [place] Glucose [Mass/Vol] 165 mg/dL High 70-100 [facility] Comment on above: Performed By: #### L [id number] ####Medical Transcriptionist: COURTNEY BENNETT ([id number])[facility] ([facility])[address] [place] [address] Potassium [Moles/Vol] 3.7 mmol/L Normal 3.5-5.[address] [facility] Comment on above: Performed By: #### L [id number] ####Medical Transcriptionist: COURTNEY BENNETT ([id number])[facility] ([facility])[address] [place] [address] [place] Protein [Mass/Vol] 5.9 g/dL Low 6.3-8.2 [facility] Comment on above: Performed By: #### L [id number] ####Medical Transcriptionist: COURTNEY BENNETT ([id number])[facility])[address] [place] [address] [place] Sodium [Moles/Vol] 134 mmol/L Low 135-145 [facility] Comment on above: Performed By: #### L [id number] ####Medical Transcriptionist: COURTNEY BENNETT ([id number])[facility] ([facility])[address] [place] [address] [place] Urea nitrogen [Mass/Vol] 45 mg/dL High 9-20 [facility] Comment on above: Performed By: #### L [id number] ####Medical Transcriptionist: COURTNEY BENNETT ([id number])[facility] ([facility])[address] [place] [address] Albumin [Mass/Vol] 4.1 g/dL Normal 3.5-5.0 [facility] Comment on above: Performed By: #### L [id number] ####Medical Transcriptionist: COURTNEY BENNETT ([id number])[facility] ([facility])[address] [place] [address] ALP [Catalytic activity/Vol] 51 U/L Normal 38-126 [facility] Comment on above: Performed By: #### L [id number] ####Medical Transcriptionist: COURTNEY BENNETT ([id number])[facility] ([facility])[address] [place] [address] ALT [Catalytic activity/Vol] 9 U/L Normal 0-49 [facility] Comment on above: Performed By: #### L [id number] ####Medical Transcriptionist: COURTNEY BENNETT ([id number])[facility] ([facility])[address] [place] [address] Anion gap [Moles/Vol] 14 mmol/L High 3-[address] [facility] Comment on above: Performed By: #### L [id number] ####Medical Transcriptionist: COURTNEY BENNETT ([id number])[facility] ([facility])[address] [place] [address] AST [Catalytic activity/Vol] 49 U/L High 15-46 [facility] Comment on above: Performed By: #### L [id number] ####Medical Transcriptionist: COURTNEY BENNETT ([id number])[facility])[address] [place] [address] Bilirubin [Mass/Vol] 0.6 mg/dL Normal 0.2-1.3 [facility] Comment on above: Performed By: #### L [id number] ####Medical Transcriptionist: COURTNEY BENNETT ([id number])[facility])[address] [place] [address] Calcium [Mass/Vol] 8.7 mg/dL Normal 8.4-10.4 [facility] Comment on above: Performed By: #### L [id number] ####Medical Transcriptionist: COURTNEY BENNETT ([id number])[facility] ([facility])[address] [place] [address] Chloride [Moles/Vol] 101 mmol/L Normal 98-107 [facility] Comment on above: Performed By: #### L [id number] ####Medical Transcriptionist: COURTNEY BENNETT ([id number])[facility] ([facility])[address] [place] [address] CO2 [Moles/Vol] 20 mmol/L Low 22-30 [facility] Comment on above: Performed By: #### L [id number] ####Medical Transcriptionist: COURTNEY BENNETT ([id number])[facility])[address] [place] [address] Creatinine [Mass/Vol] 3.53 mg/dL High 0.66-1.25 [facility] Comment on above: Performed By: #### L [id number] ####Medical Transcriptionist: COURTNEY BENNETT ([id number])[facility])[address] [place] [address] GLOMERULAR FILTRATION RATE ML/MIN/1.73 SQ M.PREDICTED 17.2 mL/min/1.73m*2 Low >60.0 [facility] Comment on above: Result Comment: Calc ulation based on the Chronic Kidney Disease Epidemiology Collaboration (CKD-EPI) equation refit without adjustment for race Performed By: #### L [id number] ####Medical Transcriptionist: COURTNEY BENNETT ([id number])[facility])[address] [place] [address] Glucose [Mass/Vol] 155 mg/dL High 70-100 [facility] Comment on above: Performed By: #### L [id number] ####Medical Transcriptionist: COURTNEY BENNETT ([phone])[facility])[address] [place] [address] Potassium [Moles/Vol] 3.6 mmol/L Normal 3.5-5.1 [facility] Comment on above: Performed By: #### L [id number] ####Medical Transcriptionist: COURTNEY [id number])[facility] ([facility])[address] [place] [address] Protein [Mass/Vol] 6.4 g/dL Normal 6.3-8.2 [facility] Comment on above: Performed By: #### L [id number] ####Medical Transcriptionist: COURTNEY BENNETT ([id number])[facility] ([facility])[address] [place] [address] Sodium [Moles/Vol] 136 mmol/L Normal 135-145 [facility] Comment on above: Performed By: #### L [id number] ####Medical Transcriptionist: COURTNEY BENNETT ([id number])[facility] ([facility])[address] [place] [address] Urea nitrogen [Mass/Vol] 43 mg/dL High 9-20 [facility] Comment on above: Performed By: #### L [id number] ####Medical Transcriptionist: COURTNEY BENNETT ([id number])[facility] ([facility])[address] [place] [address] Comprehensive metabolic 1998 panelon 01-26-2024 Albumin [Mass/Vol] 3.6 g/dL 3.5 - 5.0 g/dL [facility] ALP [Catalytic activity/Vol] 45 U/L 38 - 126 U/L [facility] ALT [Catalytic activity/Vol] 7 U/L 0 - 49 U/L [facility] Anion gap [Moles/Vol] 9 mmol/L 3 - 13 mmol/L [facility] AST [Catalytic activity/Vol] 42 U/L 15 - 46 U/L [facility] Bilirubin [Mass/Vol] 0.5 mg/dL 0.2 - 1 .3 mg/dL [facility] Calcium [Mass/Vol] 8.5 mg/dL 8.4 - 10. 4 mg/dL [facility] Chloride [Moles/Vol] 101 mmol/L 98 - 10 7 mmol/L [facility] CO2 [Moles/Vol] 24 mmol/L 22 - 30 mmol/L [facility] Creatinine [Mass/Vol] 3.57 mg/dL High 0.66 - 1.25 mg/dL [facility] GFR/1.73 sq M.predicted (S/P/Bld) [Vol rate/Area] 16.9 mL/min Low - PINF [facility] Glucose [Mass/Vol] 165 mg/dL High 70 - 100 mg/dL [facility] Interpretation and review of laboratory results Abnormal [facility] Potassium [Moles/Vol] 3.7 mmol/L 3.5 - 5.1 mmol/L [facility] Protein [Mass/Vol] 5.9 g/dL Low 6.3 - 8.2 g/dL [facility] Sodium [Moles/Vol] 134 mmol/L Low 135 - 145 mmol/L [facility] Urea nitrogen [Mass/Vol] 45 mg/dL High 9 - 20 mg/dL [facility] Albumin [Mass/Vol] 4.1 g/dL 3.5 - 5.0 g/dL [facility] ALP [Catalytic activity/Vol] 51 U/L 38 - 126 U/L [facility] ALT [Catalytic activity/Vol] 9 U/L 0 - 49 U/L [facility] Anion gap [Moles/Vol] 14 mmol/L High 3 - 13 mmol/L [facility] AST [Catalytic activity/Vol] 49 U/L High 15 - 46 U/L [facility] Bilirubin [Mass/Vol] 0.6 mg/dL 0.2 - 1 .3 mg/dL [facility] Calcium [Mass/Vol] 8.7 mg/dL 8.4 - 10. 4 mg/dL [facility] Chloride [Moles/Vol] 101 mmol/L 98 - 10 7 mmol/L [facility] CO2 [Moles/Vol] 20 mmol/L Low 22 - 30 mmol/L [facility] Creatinine [Mass/Vol] 3.53 mg/dL High 0.66 - 1.25 mg/dL [facility] GFR/1.73 sq M.predicted (S/P/Bld) [Vol rate/Area] 17.2 mL/min Low - PINF [facility] Glucose [Mass/Vol] 155 mg/dL High 70 - 100 mg/dL [facility] Interpretation and review of laboratory results Abnormal [facility] Potassium [Moles/Vol] 3.6 mmol/L 3.5 - 5.1 mmol/L [facility] Protein [Mass/Vol] 6.4 g/dL 6.3 - 8.2 g/dL [facility] Sodium [Moles/Vol] 136 mmol/L 135 - 145 mmol/L [facility] Urea nitrogen [Mass/Vol] 43 mg/dL High 9 - 20 mg/dL [facility] ECG 12-LEADon 01-26-2024 ECG 12-LEAD IMPRESSION: Sinus rhythm Left axis deviation LVH BY VOLTAGE Electronically Signed On 01-26-2024 11:25:28 EDT [address] [facility] 12-LEAD IMPRESSION: Sinus rhythm LVH by voltage Electronically Signed On 01-26-2024 11:24:31 EDT by Melina [facility] ECG 12-LEAD IMPRESSION: Atrial flutter Probable LVH with secondary repol abnrm Prolonged QT interval Electronically Signed On 01-26-2024 11:24:20 EDT by Melina [facility] ECG 12-LEAD IMPRESSION: Atrial fibrillation LVH by voltage Electronically Signed On 01-26-2024 11:24:[address] [facility] IDNon 01-26-2024 IDN The patient is Moderately Stable - Low risk of patient condition declining or worsening The patient's goals for the shift include rest The clinical goals for the shift include walk in unit Normal [facility] Laboratory - Chemistry and C hemistry - challengeon 01-26-2024 Glucose [Mass/Vol] 184 mg/dL High 70 - 100 mg/dL [facility] Glucose [Mass/Vol] 177 mg/dL High 70 - 100 mg/dL [facility] No Panel Informationon 01-25 Interpretation and review of laboratory results Abnormal [facility] P [place] 39 degrees [facility] HI Interval 144 ms [facility] QRS [place] -34 degrees [facility] QRSD Interval 92 ms [facility] QT Interval 391 ms [facility] QTC Interval 443 ms [facility] T Wave [place] 40 degrees [facility] CV EPIPHANY [facility] P [place] 0 degrees [facility] HI Interval 0 ms [facility] QRS [place] -30 degrees [facility] QRSD Interval 97 ms [facility] QT Interval 373 ms [facility] QTC Interval 498 ms [facility] T Wave [place] 31 degrees [facility] CV EPIPHANY [facility] P [place] 19 degrees [facility] HI Interval 130 ms [facility] QRS [place] -32 degrees [facility] QRSD Interval 94 ms [facility] QT Interval 423 ms [facility] QTC Interval 448 ms [facility] T Wave [place] 10 degrees [facility] CV EPIPHANY [facility] P [place] 0 degrees [facility] HI Interval 0 ms [facility] QRS [place] -31 degrees [facility] QRSD Interval 96 ms [facility] QT Interval 341 ms [facility] QTC Interval 505 ms [facility] T Wave [place] 89 degrees [facility] CV EPIPHANY [facility] Interpretation and review of laboratory results Abnormal [facility] Progress Noteon 01-26-2024 Progress Note Normal [facility] Progress Note Normal [facility] Progress Note Normal [facility] Vital signson 01-26-2024 Heart rate 77 /min bpm [facility] Heart rate 107 /min bpm [facility] Heart rate 67 /min bpm [facility] Heart rate 130 /min bpm [facility] XR CHEST 1 VIEWon 01-26-2024 XR CHEST 1 VIEW Normal [facility] XR Chest Single viewon 01-25 [facility] Radiology Study observation (narrative) [facility] BASIC METABOLIC PANELon 12-28 Anion gap [Moles/Vol] 11 mmol/L Normal 3-13 [facility] Comment on above: Performed By: #### L AB15 ####Medical Transcriptionist: COURTNEY BENNETT ([id number])[facility])[address] [place] [address] [place] Calcium [Mass/Vol] 8.5 mg/dL Normal 8.4-10.4 [facility] Comment on above: Performed By: #### L AB15 ####Medical Transcriptionist: COURTNEY BENNETT ([id number])[facility] ([facility])[address] [place] [address] [place] Chloride [Moles/Vol] 101 mmol/L Normal 98-107 [facility] Comment on above: Performed By: #### L AB15 ####Medical Transcriptionist: COURTNEY BENNETT ([id number])[facility] ([facility])[address] [place] [address] [place] CO2 [Moles/Vol] 21 mmol/L Low 22-30 [facility] Comment on above: Performed By: #### L AB15 ####Medical Transcriptionist: COURTNEY BENNETT ([id number])[facility])[address] [place] [address] Creatinine [Mass/Vol] 3.48 mg/dL High 0.66-1.25 [facility] Comment on above: Performed By: #### L AB15 ####Medical Transcriptionist: COURTNEY BENNETT ([phone])[facility])[address] [place] [address] GLOMERULAR FILTRATION RATE ML/MIN/1.73 SQ M.PREDICTED 17.5 mL/min/1.73m*2 Low >60.0 [facility] Comment on above: Result Comment: Calc ulation based on the Chronic Kidney Disease Epidemiology Collaboration (CKD-EPI) equation refit without adjustment for race Performed By: #### L AB15 ####Medical Transcriptionist: COURTNEY BENNETT ([phone])[facility])[address] [place] [address] Glucose [Mass/Vol] 239 mg/dL High 70-100 [facility] Comment on above: Performed By: #### L AB15 ####Medical Transcriptionist: COURTNEY BENNETT ([phone])[facility])[address] [place] [address] Potassium [Moles/Vol] 4.1 mmol/L Normal 3.5-5.1 [facility] Comment on above: Performed By: #### L AB15 ####Medical Transcriptionist: COURTNEY BENNETT ([id number])[facility] ([facility])[address] [place] [address] [place] Sodium [Moles/Vol] 133 mmol/L Low 135-145 [facility] Comment on above: Performed By: #### L AB15 ####Medical Transcriptionist: COURTNEY BENNETT ([id number])[facility])[address] [place] [address] [place] Urea nitrogen [Mass/Vol] 39 mg/dL High 9-20 [facility] Comment on above: Performed By: #### L AB15 ####Medical Transcriptionist: COURTNEY BENNETT ([id number])[facility] ([facility])[address] [place] [address] Basic metabolic 1998 panelon 01-25-2024 Anion gap [Moles/Vol] 11 mmol/L 3 - 13 mmol/L [facility] Calcium [Mass/Vol] 8.5 mg/dL 8.4 - 10. 4 mg/dL [facility] Chloride [Moles/Vol] 101 mmol/L 98 - 10 7 mmol/L [facility] CO2 [Moles/Vol] 21 mmol/L Low 22 - 30 mmol/L [facility] Creatinine [Mass/Vol] 3.48 mg/dL High 0.66 - 1.25 mg/dL [facility] GFR/1.73 sq M.predicted (S/P/Bld) [Vol rate/Area] 17.5 mL/min Low - PINF [facility] Glucose [Mass/Vol] 239 mg/dL High 70 - 100 mg/dL [facility] Interpretation and review of laboratory results Abnormal [facility] Potassium [Moles/Vol] 4.1 mmol/L 3.5 - 5.1 mmol/L [facility] Sodium [Moles/Vol] 133 mmol/L Low 135 - 145 mmol/L [facility] Urea nitrogen [Mass/Vol] 39 mg/dL High 9 - 20 mg/dL [facility] CALCIUM, IONIZEDon CALCIUM IONIZED 4.10 mg/dL Low 4.30-5.20 [facility] Comment on above: Performed By: #### L AB54 ####Medical Transcriptionist: COURTNEY BENNETT ([id number])[facility] ([facility])[address] [place] [address] PH, IONIZED CALCIUM 7.31 Normal 7.31-7.46 [facility] Comment on above: Performed By: #### L AB54 ####Medical Transcriptionist: COURTNEY BENNETT ([id number])[facility] ([facility])[address] [place] [address] CARECOORDon 01-25-2024 CARECOORD Normal [facility] CBC (HEMOGRAM)on 01-25-2024 Erythrocyte distribution width (RBC) [Ratio] 14.2 % Normal 11.5-15.0 [facility] Comment on above: Performed By: #### L [id number] ####Medical Transcriptionist: COURTNEY BENNETT ([phone])[facility])[address] [place] [address] Hematocrit (Bld) [Volume fraction] 26.2 % Low 40.0-52.0 [facility] Comment on above: Performed By: #### L [id number] ####Medical Transcriptionist: COURTNEY BENNETT ([phone])[facility])[address] [place] [address] Hemoglobin (Bld) [Mass/Vol] 8.2 g/dL Low 13.0-18.0 [facility] Comment on above: Performed By: #### L AB294 ####Medical Transcriptionist: COURTNEY BENNETT ([phone])[address] IPF 8 Normal [facility] Comment on above: Performed By: #### L [id number] ####Medical Transcriptionist: COURTNEY BENNETT ([phone])[facility])[address] [place] [address] MCH (RBC) [Entitic mass] 28.5 pg Normal 26.0-34.0 [facility] Comment on above: Performed By: #### L AB294 ####Medical Transcriptionist: COURTNEY BENNETT ([phone])[address] MCHC 31.3 % Normal 30.5-36.0 [facility] Comment on above: Performed By: #### L [id number] ####Medical Transcriptionist: COURTNEY BENNETT ([phone])[facility])[address] [place] [address] MCV (RBC) [Entitic vol] 91.0 fL Normal 77.0-99.0 [facility] Comment on above: Performed By: #### L AB294 ####Medical Transcriptionist: COURTNEY BENNETT ([phone])[facility] ([facility])[address] [place] [address] Platelet mean volume (Bld) [Entitic vol] 12.1 fL Normal 9.0-12.7 [facility] Comment on above: Performed By: #### L [id number] ####Medical Transcriptionist: COURTNEY BENNETT ([phone])[facility] ([facility])[address] [place] [address] Platelets (Bld) [#/Vol] 86 10*3/uL Low 140-440 [facility] Comment on above: Performed By: #### L [id number] ####Medical Transcriptionist: COURTNEY BENNETT ([id number])[facility] ([facility])[address] [place] [address] RBC (Bld) [#/Vol] 2.88 10*6/uL Low 4.40-5.90 [facility] Comment on above: Performed By: #### L AB294 ####Medical Transcriptionist: COURTNEY BENNETT ([phone])[facility] ([facility])[address] [place] [address] WBC (Bld) [#/Vol] 10.0 10*3/uL Normal 3.6-10.7 [facility] Comment on above: Performed By: #### L [id number] ####Medical Transcriptionist: COURTNEY BENNETT ([id number])[facility] ([facility])[address] [place] [address] CBC panel Auto (Bld)on 01-24 Erythrocyte distribution width (RBC) [Ratio] 14.2 % 11.5 - 15.0 % [facility] Hematocrit (Bld) [Volume fraction] 26.2 % Low 40.0 - 52.0 % [facility] Hemoglobin (Bld) [Mass/Vol] 8.2 g/dL Low 13.0 - 18.0 g/dL [facility] Interpretation and review of laboratory results Abnormal [facility] IPF 8 [facility] MCH (RBC) [Entitic mass] 28.5 pg 26.0 - 34.0 pg [facility] MCHC (RBC) [Mass/Vol] 31.3 % 30.5 - 36.0 % [facility] MCV (RBC) [Entitic vol] 91.0 fL 77.0 - 99.0 fL [facility] Platelet mean volume (Bld) [Entitic vol] 12.1 fL 9.0 - 12.7 fL [facility] Platelets (Bld) [#/Vol] 86 10*3/uL Low 140 - 440 10*3/uL [facility] RBC (Bld) [#/Vol] 2.88 10*6/uL Low 4.40 - 5.9 0 10*6/uL [facility] WBC (Bld) [#/Vol] 10.0 10*3/uL 3.6 - 10.7 10*3/uL [facility] COMPREHENSIVE METABOLIC PANE Daniel 01-25-2024 Albumin [Mass/Vol] 4.4 g/dL Normal 3.5-5.0 [facility] Comment on above: Performed By: #### L AB17 ####Medical Transcriptionist: COURTNEY BENNETT ([phone])[facility])[address] [place] [address] ALP [Catalytic activity/Vol] 43 U/L Normal 38-126 [facility] Comment on above: Performed By: #### L AB17 ####Medical Transcriptionist: COURTNEY BENNETT ([phone])[facility])[address] [place] [address] ALT [Catalytic activity/Vol] 26 U/L Normal 0-49 [facility] Comment on above: Performed By: #### L AB17 ####Medical Transcriptionist: COURTNEY BENNETT ([phone])[facility])[address] [place] [address] Anion gap [Moles/Vol] 19 mmol/L High 3-[address] [facility] Comment on above: Performed By: #### L AB17 ####Medical Transcriptionist: COURTNEY BENNETT ([phone])[facility])[address] [place] [address] AST [Catalytic activity/Vol] 70 U/L High 15-46 [facility] Comment on above: Performed By: #### L AB17 ####Medical Transcriptionist: COURTNEY BENNETT ([phone])[facility] ([facility])[address] [place] [address] Bilirubin [Mass/Vol] 0.6 mg/dL Normal 0.2-1.3 [facility] Comment on above: Performed By: #### L AB17 ####Medical Transcriptionist: COURTNEY BENNETT ([phone])[facility] ([facility])[address] [place] [address] Calcium [Mass/Vol] 8.9 mg/dL Normal 8.4-10.4 [facility] Comment on above: Performed By: #### L AB17 ####Medical Transcriptionist: COURTNEY BENNETT ([phone])[facility] ([facility])[address] [place] [address] Chloride [Moles/Vol] 101 mmol/L Normal 98-107 [facility] Comment on above: Performed By: #### L AB17 ####Medical Transcriptionist: COURTNEY BENNETT ([phone])[facility] ([facility])[address] [place] [address] CO2 [Moles/Vol] 15 mmol/L Low 22-30 [facility] Comment on above: Performed By: #### L AB17 ####Medical Transcriptionist: COURTNEY BENNETT ([phone])[facility] ([facility])[address] [place] [address] Creatinine [Mass/Vol] 3.41 mg/dL High 0.66-1.25 [facility] Comment on above: Performed By: #### L AB17 ####Medical Transcriptionist: COURTNEY BENNETT ([phone])[facility] ([facility])[address] [place] [address] [place] GLOMERULAR FILTRATION RATE ML/MIN/1.73 SQ M.PREDICTED 17.9 mL/min/1.73m*2 Low >60.0 [facility] Comment on above: Result Comment: Calc ulation based on the Chronic Kidney Disease Epidemiology Collaboration (CKD-EPI) equation refit without adjustment for race Performed By: #### L AB17 ####Medical Transcriptionist: COURTNEY BENNETT ([id number])[facility] ([facility])[address] [place] [address] [place] Glucose [Mass/Vol] 225 mg/dL High 70-100 [facility] Comment on above: Performed By: #### L AB17 ####Medical Transcriptionist: COURTNEY BENNETT ([id number])[facility] ([facility])[address] [place] [address] [place] Potassium [Moles/Vol] 4.1 mmol/L Normal 3.5-5.[address] [facility] Comment on above: Performed By: #### L AB17 ####Medical Transcriptionist: COURTNEY BENNETT ([phone])[facility] ([facility])[address] [place] [address] Protein [Mass/Vol] 6.7 g/dL Normal 6.3-8.2 [facility] Comment on above: Performed By: #### L AB17 ####Medical Transcriptionist: COURTNEY BENNETT ([phone])[facility] ([facility])[address] [place] [address] [place] Sodium [Moles/Vol] 135 mmol/L Normal 135-145 [facility] Comment on above: Performed By: #### L AB17 ####Medical Transcriptionist: COURTNEY BENNETT ([id number])[facility] ([facility])[address] [place] [address] [place] Urea nitrogen [Mass/Vol] 32 mg/dL High 9-20 [facility] Comment on above: Performed By: #### L AB17 ####Medical Transcriptionist: COURTNEY BENNETT ([phone])[facility] ([facility])[address] [place] [address] [place] Albumin [Mass/Vol] 4.5 g/dL Normal 3.5-5.0 [facility] Comment on above: Performed By: #### L AB17, [id number], [id number] ####Medical Transcriptionist: COURTNEY BENNETT ([id number])[facility] ([facility])[address] [place] [address] [place] ALP [Catalytic activity/Vol] 51 U/L Normal 38-126 [facility] Comment on above: Performed By: #### L AB17, [id number], [id number] ####Medical Transcriptionist: COURTNEY BENNETT ([phone])[facility])[address] [place] [address] ALT [Catalytic activity/Vol] 16 U/L Normal 0-49 [facility] Comment on above: Performed By: #### L AB17, [id number], [id number] ####Medical Transcriptionist: COURTNEY BENNETT ([id number])[facility] ([facility])[address] [place] [address] Anion gap [Moles/Vol] 16 mmol/L High 3-[address] [facility] Comment on above: Performed By: #### L AB17, [id number], [id number] ####Medical Transcriptionist: COURTNEY BENNETT ([phone])[facility])[address] [place] [address] AST [Catalytic activity/Vol] 75 U/L High 15-46 [facility] Comment on above: Performed By: #### L AB17, [id number], [id number] ####Medical Transcriptionist: COURTNEY BENNETT ([id number])[facility] ([facility])[address] [place] [address] Bilirubin [Mass/Vol] 0.9 mg/dL Normal 0.2-1.3 [facility] Comment on above: Performed By: #### L AB17, [id number], [id number] ####Medical Transcriptionist: COURTNEY BENNETT ([phone])[facility])[address] [place] [address] Calcium [Mass/Vol] 8.7 mg/dL Normal 8.4-10.4 [facility] Comment on above: Performed By: #### L AB17, [id number], [id number] ####Medical Transcriptionist: COURTNEY BENNETT ([id number])[facility])[address] [place] [address] Chloride [Moles/Vol] 105 mmol/L Normal 98-107 [facility] Comment on above: Performed By: #### L AB17, [id number], [id number] ####Medical Transcriptionist: COURTNEY BENNETT ([phone])[facility] ([facility])[address] [place] [address] CO2 [Moles/Vol] 15 mmol/L Low 22-30 [facility] Comment on above: Performed By: #### L AB17, [id number], [id number] ####Medical Transcriptionist: COURTNEY BENNETT ([id number])[facility] ([facility])[address] [place] [address] Creatinine [Mass/Vol] 3.18 mg/dL High 0.66-1.[address] [facility] Comment on above: Performed By: #### Jamison AB17, [id number], [id number] ####Medical Transcriptionist: COURTNEY BENNETT ([phone])[facility] ([facility])[address] [place] [address] GLOMERULAR FILTRATION RATE ML/MIN/1.73 SQ M.PREDICTED 19.5 mL/min/1.73m*2 Low >60.0 [facility] Comment on above: Result Comment: Calc ulation based on the Chronic Kidney Disease Epidemiology Collaboration (CKD-EPI) equation refit without adjustment for race Performed By: #### Jamison AB17, [id number], [id number] ####Medical Transcriptionist: COURTNEY BENNETT ([id number])[facility] ([facility])[address] [place] [address] Glucose [Mass/Vol] 164 mg/dL High 70-100 [facility] Comment on above: Performed By: #### Jamison AB17, [id number], [id number] ####Medical Transcriptionist: COURTNEY BENNETT ([phone])[facility] ([facility])[address] [place] [address] [place] Potassium [Moles/Vol] 4.1 mmol/L Normal 3.5-5.1 [facility] Comment on above: Performed By: #### L AB17, [id number], [id number] ####Medical Transcriptionist: COURTNEY BENNETT ([id number])[facility])[address] [place] [address] Protein [Mass/Vol] 7.0 g/dL Normal 6.3-8.2 [facility] Comment on above: Performed By: #### L AB17, [id number], [id number] ####Medical Transcriptionist: COURTNEY BENNETT ([phone])[facility])[address] [place] [address] Sodium [Moles/Vol] 136 mmol/L Normal 135-145 [facility] Comment on above: Performed By: #### L AB17, [id number], HAH900 ####Medical Transcriptionist: COURTNEY BENNETT ([phone])[facility] ([facility])[address] [place] [address] Urea nitrogen [Mass/Vol] 30 mg/dL High 9-20 [facility] Comment on above: Performed By: #### L AB17, [id number], [id number] ####Medical Transcriptionist: COURTNEY BENNETT ([id number])[facility])[address] [place] [address] Albumin [Mass/Vol] 4.5 g/dL Normal 3.5-5.0 [facility] Comment on above: Performed By: #### L AB17 ####Medical Transcriptionist: COURTNEY BENNETT ([phone])[facility])[address] [place] [address] ALP [Catalytic activity/Vol] 39 U/L Normal 38-126 [facility] Comment on above: Performed By: #### L AB17 ####Medical Transcriptionist: COURTNEY BENNETT ([phone])[facility])[address] [place] [address] ALT [Catalytic activity/Vol] 17 U/L Normal 0-49 [facility] Comment on above: Performed By: #### L AB17 ####Medical Transcriptionist: COURTNEY BENNETT ([id number])[facility])[address] [place] [address] Anion gap [Moles/Vol] 14 mmol/L High 3-[address] [facility] Comment on above: Performed By: #### L AB17 ####Medical Transcriptionist: COURTNEY BENNETT ([phone])[facility] ([facility])[address] [place] [address] [place] AST [Catalytic activity/Vol] 72 U/L High 15-46 [facility] Comment on above: Performed By: #### L AB17 ####Medical Transcriptionist: COURTNEY BENNETT ([id number])[facility] ([facility])[address] [place] [address] [place] Bilirubin [Mass/Vol] 0.9 mg/dL Normal 0.2-1.3 [facility] Comment on above: Performed By: #### L AB17 ####Medical Transcriptionist: COURTNEY BENNETT ([phone])[facility] ([facility])[address] [place] [address] Calcium [Mass/Vol] 8.4 mg/dL Normal 8.4-10.4 [facility] Comment on above: Performed By: #### L AB17 ####Medical Transcriptionist: COURTNEY BENNETT ([id number])[facility] ([facility])[address] [place] [address] [place] Chloride [Moles/Vol] 107 mmol/L Normal 98-107 [facility] Comment on above: Performed By: #### L AB17 ####Medical Transcriptionist: COURTNEY BENNETT ([phone])[facility] ([facility])[address] [place] [address] [place] CO2 [Moles/Vol] 16 mmol/L Low 22-30 [facility] Comment on above: Performed By: #### L AB17 ####Medical Transcriptionist: COURTNEY BENNETT ([phone])[facility] ([facility])[address] [place] [address] [place] Creatinine [Mass/Vol] 3.02 mg/dL High 0.66-1.[address] [facility] Comment on above: Performed By: #### L AB17 ####Medical Transcriptionist: COURTNEY BENNETT ([phone])[facility] ([facility])[address] [place] [address] [place] GLOMERULAR FILTRATION RATE ML/MIN/1.73 SQ M.PREDICTED 20.7 mL/min/1.73m*2 Low >60.0 [facility] Comment on above: Result Comment: Calc ulation based on the Chronic Kidney Disease Epidemiology Collaboration (CKD-EPI) equation refit without adjustment for race Performed By: #### L AB17 ####Medical Transcriptionist: COURTNEY BENNETT ([phone])[facility] ([facility])[address] [place] [address] Glucose [Mass/Vol] 129 mg/dL High 70-100 [facility] Comment on above: Performed By: #### L AB17 ####Medical Transcriptionist: COURTNEY BENNETT ([phone])[facility] ([facility])[address] [place] [address] [place] Potassium [Moles/Vol] 4.2 mmol/L Normal 3.5-5.1 [facility] Comment on above: Performed By: #### L AB17 ####Medical Transcriptionist: COURTNEY BENNETT ([phone])[facility] ([facility])[address] [place] [address] Protein [Mass/Vol] 6.6 g/dL Normal 6.3-8.2 [facility] Comment on above: Performed By: #### L AB17 ####Medical Transcriptionist: COURTNEY BENNETT ([phone])[facility] ([facility])[address] [place] [address] [place] Sodium [Moles/Vol] 137 mmol/L Normal 135-145 [facility] Comment on above: Performed By: #### L AB17 ####Medical Transcriptionist: COURTNEY BENNETT ([phone])[facility])[address] [place] [address] [place] Urea nitrogen [Mass/Vol] 29 mg/dL High 9-20 [facility] Comment on above: Performed By: #### L AB17 ####Medical Transcriptionist: COURTNEY BENNETT ([phone])[facility])[address] [place] [address] [place] Albumin [Mass/Vol] 4.2 g/dL Normal 3.5-5.0 [facility] Comment on above: Performed By: #### L AB113, LAB17, [id number] ####Medical Transcriptionist: COURTNEY BENNETT ([phone])[facility] ([facility])[address] [place] [address] ALP [Catalytic activity/Vol] 32 U/L Low 38-126 [facility] Comment on above: Performed By: #### Jamison AB113, LAB17, [id number] ####Medical Transcriptionist: COURTNEY BENNETT ([phone])[facility] ([facility])[address] [place] [address] ALT [Catalytic activity/Vol] 18 U/L Normal 0-49 [facility] Comment on above: Performed By: #### Jamison ALARCON, LAB17, [id number] ####Medical Transcriptionist: COURTNEY BENNETT ([phone])[facility] ([facility])[address] [place] [address] Anion gap [Moles/Vol] 12 mmol/L Normal 3-[address] [facility] Comment on above: Performed By: #### Jamison ALARCON, LAB17, [id number] ####Medical Transcriptionist: COURTNEY BENNETT ([phone])[facility] ([facility])[address] [place] [address] AST [Catalytic activity/Vol] 71 U/L High 15-46 [facility] Comment on above: Performed By: #### Jamison ABHarpreet, LAB17, [id number] ####Medical Transcriptionist: COURTNEY BENNETT ([phone])[facility] ([facility])[address] [place] [address] Bilirubin [Mass/Vol] 0.7 mg/dL Normal 0.2-1.3 [facility] Comment on above: Performed By: #### Jamison ABHarpreet, LAB17, [id number] ####Medical Transcriptionist: COURTNEY BENNETT ([phone])[facility])[address] [place] [address] Calcium [Mass/Vol] 8.1 mg/dL Low 8.4-10.4 [facility] Comment on above: Performed By: #### Jamison ABHarpreet, LAB17, [id number] ####Medical Transcriptionist: COURTNEY BENNETT ([phone])[facility] ([facility])[address] [place] [address] Chloride [Moles/Vol] 105 mmol/L Normal 98-107 [facility] Comment on above: Performed By: #### Jamison AB113, LAB17, [id number] ####Medical Transcriptionist: COURTNEY BENNETT ([phone])[facility] ([facility])[address] [place] [address] CO2 [Moles/Vol] 17 mmol/L Low 22-30 [facility] Comment on above: Performed By: #### Jamison ABHarpreet, LAB17, [id number] ####Medical Transcriptionist: COURTNEY BENNETT ([phone])[facility])[address] [place] [address] Creatinine [Mass/Vol] 2.90 mg/dL High 0.66-1.25 [facility] Comment on above: Performed By: #### Jamison ALARCON, LAB17, [id number] ####Medical Transcriptionist: COURTNEY BENNETT ([phone])[facility] ([facility])[address] [place] [address] GLOMERULAR FILTRATION RATE ML/MIN/1.73 SQ M.PREDICTED 21.7 mL/min/1.73m*2 Low >60.0 [facility] Comment on above: Result Comment: Calc ulation based on the Chronic Kidney Disease Epidemiology Collaboration (CKD-EPI) equation refit without adjustment for race Performed By: #### Jamison ALARCON, LAB17, [id number] ####Medical Transcriptionist: COURTNEY BENNETT ([phone])[facility] ([facility])[address] [place] [address] Glucose [Mass/Vol] 166 mg/dL High 70-100 [facility] Comment on above: Performed By: #### Jamison ABHarpreet, LAB17, [id number] ####Medical Transcriptionist: COURTNEY BENNETT ([phone])[facility])[address] [place] [address] Potassium [Moles/Vol] 4.6 mmol/L Normal 3.5-5.[address] [facility] Comment on above: Performed By: #### L AB113, LAB17, [id number] ####Medical Transcriptionist: COURTNEY BENNETT ([phone])[facility])[address] [place] [address] Protein [Mass/Vol] 6.2 g/dL Low 6.3-8.2 [facility] Comment on above: Performed By: #### L AB113, LAB17, [id number] ####Medical Transcriptionist: COURTNEY BENNETT ([phone])[facility])[address] [place] [address] Sodium [Moles/Vol] 135 mmol/L Normal 135-145 [facility] Comment on above: Performed By: #### L AB113, LAB17, [id number] ####Medical Transcriptionist: COURTNEY BENNETT ([phone])[facility] ([facility])[address] [place] [address] Urea nitrogen [Mass/Vol] 28 mg/dL High 9-20 [facility] Comment on above: Performed By: #### L AB113, LAB17, [id number] ####Medical Transcriptionist: COURTNEY BENNETT ([phone])[facility] ([facility])[address] [place] [address] Calcium.ionized [Moles/Vol]O rdered By: Mabel Flores on 01-25-2024 Calcium.ionized (Bld) [Moles/Vol] 4.10 mg/dL Low 4.30 - 5.20 mg/dL [facility] Interpretation and review of laboratory results Abnormal [facility] PH, IONIZED CALCIUM 7.31 7.31 - 7.46 [facility] Comprehensive metabolic 1998 panelon 01-25-2024 Albumin [Mass/Vol] 4.4 g/dL 3.5 - 5.0 g/dL [facility] ALP [Catalytic activity/Vol] 43 U/L 38 - 126 U/L [facility] ALT [Catalytic activity/Vol] 26 U/L 0 - 49 U/L [facility] Anion gap [Moles/Vol] 19 mmol/L High 3 - 13 mmol/L [facility] AST [Catalytic activity/Vol] 70 U/L High 15 - 46 U/L [facility] Bilirubin [Mass/Vol] 0.6 mg/dL 0.2 - 1 .3 mg/dL [facility] Calcium [Mass/Vol] 8.9 mg/dL 8.4 - 10. 4 mg/dL [facility] Chloride [Moles/Vol] 101 mmol/L 98 - 10 7 mmol/L [facility] CO2 [Moles/Vol] 15 mmol/L Low 22 - 30 mmol/L [facility] Creatinine [Mass/Vol] 3.41 mg/dL High 0.66 - 1.25 mg/dL [facility] GFR/1.73 sq M.predicted (S/P/Bld) [Vol rate/Area] 17.9 mL/min Low - PINF [facility] Glucose [Mass/Vol] 225 mg/dL High 70 - 100 mg/dL [facility] Interpretation and review of laboratory results Abnormal [facility] Potassium [Moles/Vol] 4.1 mmol/L 3.5 - 5.1 mmol/L [facility] Protein [Mass/Vol] 6.7 g/dL 6.3 - 8.2 g/dL [facility] Sodium [Moles/Vol] 135 mmol/L 135 - 145 mmol/L [facility] Urea nitrogen [Mass/Vol] 32 mg/dL High 9 - 20 mg/dL [facility] Albumin [Mass/Vol] 4.5 g/dL 3.5 - 5.0 g/dL [facility] ALP [Catalytic activity/Vol] 51 U/L 38 - 126 U/L [facility] ALT [Catalytic activity/Vol] 16 U/L 0 - 49 U/L [facility] Anion gap [Moles/Vol] 16 mmol/L High 3 - 13 mmol/L [facility] AST [Catalytic activity/Vol] 75 U/L High 15 - 46 U/L [facility] Bilirubin [Mass/Vol] 0.9 mg/dL 0.2 - 1 .3 mg/dL [facility] Calcium [Mass/Vol] 8.7 mg/dL 8.4 - 10. 4 mg/dL [facility] Chloride [Moles/Vol] 105 mmol/L 98 - 10 7 mmol/L [facility] CO2 [Moles/Vol] 15 mmol/L Low 22 - 30 mmol/L [facility] Creatinine [Mass/Vol] 3.18 mg/dL High 0.66 - 1.25 mg/dL [facility] GFR/1.73 sq M.predicted (S/P/Bld) [Vol rate/Area] 19.5 mL/min Low - PINF [facility] Glucose [Mass/Vol] 164 mg/dL High 70 - 100 mg/dL [facility] Potassium [Moles/Vol] 4.1 mmol/L 3.5 - 5.1 mmol/L [facility] Protein [Mass/Vol] 7.0 g/dL 6.3 - 8.2 g/dL [facility] Sodium [Moles/Vol] 136 mmol/L 135 - 145 mmol/L [facility] Urea nitrogen [Mass/Vol] 30 mg/dL High 9 - 20 mg/dL [facility] Albumin [Mass/Vol] 4.5 g/dL 3.5 - 5.0 g/dL [facility] ALP [Catalytic activity/Vol] 39 U/L 38 - 126 U/L [facility] ALT [Catalytic activity/Vol] 17 U/L 0 - 49 U/L [facility] Anion gap [Moles/Vol] 14 mmol/L High 3 - 13 mmol/L [facility] AST [Catalytic activity/Vol] 72 U/L High 15 - 46 U/L [facility] Bilirubin [Mass/Vol] 0.9 mg/dL 0.2 - 1 .3 mg/dL [facility] Calcium [Mass/Vol] 8.4 mg/dL 8.4 - 10. 4 mg/dL [facility] Chloride [Moles/Vol] 107 mmol/L 98 - 10 7 mmol/L [facility] CO2 [Moles/Vol] 16 mmol/L Low 22 - 30 mmol/L [facility] Creatinine [Mass/Vol] 3.02 mg/dL High 0.66 - 1.25 mg/dL [facility] GFR/1.73 sq M.predicted (S/P/Bld) [Vol rate/Area] 20.7 mL/min Low - PINF [facility] Glucose [Mass/Vol] 129 mg/dL High 70 - 100 mg/dL [facility] Interpretation and review of laboratory results Abnormal [facility] Potassium [Moles/Vol] 4.2 mmol/L 3.5 - 5.1 mmol/L [facility] Protein [Mass/Vol] 6.6 g/dL 6.3 - 8.2 g/dL [facility] Sodium [Moles/Vol] 137 mmol/L 135 - 145 mmol/L [facility] Urea nitrogen [Mass/Vol] 29 mg/dL High 9 - 20 mg/dL [facility] Albumin [Mass/Vol] 4.2 g/dL 3.5 - 5.0 g/dL [facility] ALP [Catalytic activity/Vol] 32 U/L Low 38 - 126 U/L [facility] ALT [Catalytic activity/Vol] 18 U/L 0 - 49 U/L [facility] Anion gap [Moles/Vol] 12 mmol/L 3 - 13 mmol/L [facility] AST [Catalytic activity/Vol] 71 U/L High 15 - 46 U/L [facility] Bilirubin [Mass/Vol] 0.7 mg/dL 0.2 - 1 .3 mg/dL [facility] Calcium [Mass/Vol] 8.1 mg/dL Low 8.4 - 10. 4 mg/dL [facility] Chloride [Moles/Vol] 105 mmol/L 98 - 10 7 mmol/L [facility] CO2 [Moles/Vol] 17 mmol/L Low 22 - 30 mmol/L [facility] Creatinine [Mass/Vol] 2.90 mg/dL High 0.66 - 1.25 mg/dL [facility] GFR/1.73 sq M.predicted (S/P/Bld) [Vol rate/Area] 21.7 mL/min Low - PINF [facility] Glucose [Mass/Vol] 166 mg/dL High 70 - 100 mg/dL [facility] Potassium [Moles/Vol] 4.6 mmol/L 3.5 - 5.1 mmol/L [facility] Protein [Mass/Vol] 6.2 g/dL Low 6.3 - 8.2 g/dL [facility] Sodium [Moles/Vol] 135 mmol/L 135 - 145 mmol/L [facility] Urea nitrogen [Mass/Vol] 28 mg/dL High 9 - 20 mg/dL [facility] IDNon 01-25-2024 IDN Normal [facility] Laboratory - Chemistry and C hemistry - challengeon 01-25-2024 Glucose [Mass/Vol] 416 mg/dL High 70 - 100 mg/dL [facility] Glucose [Mass/Vol] 217 mg/dL High 70 - 100 mg/dL [facility] Glucose [Mass/Vol] 190 mg/dL High 70 - 100 mg/dL [facility] Magnesium [Mass/Vol] 2.3 mg/dL 1.6 - 2 .3 mg/dL [facility] Glucose [Mass/Vol] 157 mg/dL High 70 - 100 mg/dL [facility] Magnesium [Mass/Vol] 2.4 mg/dL High 1.6 - 2 .3 mg/dL [facility] MAGNESIUMon 01-25-2024 Magnesium [Mass/Vol] 2.3 mg/dL Normal 1.6-2.3 [facility] Comment on above: Performed By: #### L AB17, [id number], [id number] ####Medical Transcriptionist: COURTNEY BENNETT ([id number])[address] Magnesium [Mass/Vol] 2.4 mg/dL High 1.6-2.3 [facility] Comment on above: Performed By: #### L AB113, LAB17, [id number] ####Medical Transcriptionist: COURTNEY BENNETT ([id number])[address] Magnesium [Mass/Vol]on 01-24 Interpretation and review of laboratory results Normal [facility] No Panel Informationon 01-24 Interpretation and review of laboratory results Abnormal [facility] Interpretation and review of laboratory results Abnormal [facility] Interpretation and review of laboratory results Abnormal [facility] Interpretation and review of laboratory results Abnormal [facility] Interpretation and review of laboratory results Abnormal [facility] Interpretation and review of laboratory results Abnormal [facility] No Panel InformationOrdered By: Elliot Dowd on 01-25-2024 Case Report [facility] Work Phone: Clinical Information s8pjaHIxJWPyaVLpCXj w YSjbpbWgKLUxkOAbJ2Ps jwatLOmzSH1zYL6itSwq fNHmzRFwDDPkQbQui4ah t190xQCyg5ryWGJLNDxi HGWCLEi9gNbxN32mf1Z4 DbhcN8uxHLFmIShwJCLg WBwlsYFwKNa8NQOasGHa dzEyMjQwXHBhcGVyaDE1 XNSeUY4ktehqEXknNNwr MEOnzoU1JXQzpKMlK0Pw FJKfXT1hdngiFVS4SWfi UUNlRBZ0NbLqBAJrb4Mk frj0WaJtjBSaMEaguMZs sjegkbOzMKKtKMNJc95w O6EqWSorkvW2lQ8lRRiT B3RJLMumYE53f3EvkjHn HGfsyB0tLVPzgQlparOw QDFMWLFqZKsoAN24MEnV X4BuQPSaJ85gQXCtCUEm XHBhcn0= [facility] Work Phone: Disclaimer v9ixbJNsBFHelMBeLbMq FBChREBqp9ixZXWpfYAg ZzEwMzNcZnRuYmpcdWMx RZSgEuTwd7qmc795jGHa d4bmBLJpHkL2jPNuKVXi M53fPSRAS519NMYhDXnp c8inw2ZjOWEgnFEbn2I5 UEUJRFquXNZBBFy2lPaw W04nk1D0VbqzL3dzJAQh TCMgL5LjBA1cDEVsEuk5 ZMS3ZSM3VBStKLBzI6Nf LJ8qFHWepNGuVZx0r0zr wUafGLHzZMI9y8isFEjh vtFtKG3fvz1wvSa4j3fy czEgRGVmYXVsdCBQYXJh M1QjnAnxPt6fuNu3sRmx RposHFY9Czq9IG4agu66 zwc9bYqbRWPkmjagSuZ6 FTcoEZMudcnfOHj5YUhe LNNmqAE8UOJedZIoD6Tp EQAsKC2ekqg7XRV5WEtq PCVyFdK9HBWqsEJhEPXe uOejVNcav975AYH6OnXd KC3zA5Gyp7A4uJ2tjGJu BMDazMEzYsMaXZWkme6g hDCsUKzot2SqUUV5axL2 pJMpbRNbXFZoUG82Gmek i1GqJpqvHYJ3KQFefoHm m3Nsn4tnHjFbmxHgY0gv H7YhXRGiPAJpJLNhXiPm vzHnv6Kil8LiyTQmqLo8 e7czOCRpNAEeiPrrb7il JPS8TOGeE5I8uUEdh5jf CRckOJYvcWS3rpF5YLXk aKRfT0IesZ4mJUYjXA1d zws3d2arPRI2RKrwMWGe IsB7biU3OZDqoXHzIOBl sZflDDuba601PSZ1ToJv RUZkl3RjV9DezQgtL86y gJmtP99lOHUjgMjviX8v sPbfcJ0eQbVqBxVmBPgy bFxwbGFpblxmMVxmczE2 CPommkvyYXCdDGesM2xb CkRlYYSkwKaqXJzpr8Dp NUDlFTNbWHQaHYkuB4aw hW9qvltrDYkpPJGwgTvc o5uyOfRcvGS3AW8folJp ERElsBtucrO1adRwoJca cR9fcS4qvWkscV9uaNMm oDK0tgmcTYttSZAvdROk aHlicmlkaXphdGlvbiwg fZ3iSAS7gESkFCS9oEIh SUUdNSKyZIGwoQ04rv0y zYHjnlMiR2YcK0LxmOBr fXprDpenzDXtsQDjMu0u fCThRQ1wKWDtcWMfS7Jf OX3tWUDpmvwmNAQuMUcg OIJrTXUjQcOobyUxr4Gp jG9cOXAjKCXpQL19uiRl qbB6oXFzFEOudgPsdIHz dHMgaXMgcmVndWxhdGVk UGFiAWCjDTGzMLh6hFWa p4KqZ9caaHMqmsQqP8Ry zESnPBOGGQ2dWIfbl3Ff zKYsmAWxy0IjMODlARGo eA1tMJRdGX3zHTLjGJwn ILCwefKwnw9siwBpCGPk YNKwO4RizlykdZkksrFn DANavl9kuwEqYKI8XZEy ZSBjbGluaWNhbCBsYWJv vgT7e2BfDGEhj6DmD9Rx dZLoBNXpqDHjRDG8p6Fm nT8qJZiojSWeEJBcGB2e dCBiZWVuIGNsZWFyZWQg OyusfMfdSQUMJOSrh8Vh ZT4gYIHhjYjePMPbyM2i k1RtEUJgd94vVWLWCShn IFRoZSBGREEgaGFzIGRl dGVybWluZWQgdGhhdCBz zGKrWOQkBHFuHY5bNUSf qqAzsAYkp4RtyWMbswKx z9PcpcUbCDKtATL5PgUb sZXwVJSyukWBnKbqqH6k oC6ba1TqnH3kMHuxbeLy tTZxJc5yeGKoFK3bHGZj cmFmZmluIGVtYmVkZGVk RITuk1K2OC5sKNRkjs1c eslwiCAnrL3kqNGmvzQh BU1gEO5fD0L3zWYpUKQv noImf9buEJs0mURjRJSs fYKiiCNdChtnUEE2NMSr QID4gvDizfXwEHVdvSej iNM0jJLrBVLuUVOvLTKo TE69A8Nbe5PyS1cqWC83 AMSuZGFkFGKbfwZwm7ko HDNng9igCRLjnGFbD3Gj ZCBzdGFpbmluZyBwYXR0 ZFSjOOI9pCMbDOAtI6Sw kTUssNZfxP16FO4rsHH5 VF6nQFL7LVppsI1tFmIT nD56np6pbWS2k2FxAB7y P0QiVCMrd2V7wzLmOINb TD0dlEYxOPJlVHVvmNed YXRlZCBvbiBkZWNhbGNp HnmeWIN7iHKieRRxShUX ABI0kQFzUWLhw3ZyKMTg ZSBpbnRlcnByZXRlZCB3 jYMnSKHwrOCjy55tS3o2 KW6teXprWCUkfRKqUVNz f3NaxDMqfEh2pNUfAmZs SDaiBMWvIFenaMi2vDD5 JA4cLMEzX7ZrZ1tysFXp IZCqEITfnDAdvn6zxGNf fQ== [facility] Work Phone: Gross Description a1aztHWrWPEpoYDzDGid SJwdsyYyVRSzgYXtQ4Zi wxypFSmoBZ8cUQ3kyKzg aTBqzZFaSWCkUvDgq9kj b637eTZva1pnBRMTLAtz TRWXZWh5dPatO74sv4L6 RuxvS91zjUWyHGO9XCWi IRPpaQNlSVWwWIZ4PZQy eSExF9ycZPCrAX3tjokw WKpaMZawPOUahND9ZFRx sRQgE8HgDKPiQNobGJRh mvz7QtOnTo0boREptOaa MFxwYXJkXHBsYWluXGZz QwFaLaTqVVq6YIRhhT3n Tv3uvKBdbC2tuMLlZNfy ZCAicmlnaHQgbWlkZGxl YLviFlSqn0YlY0WmQMqr NNMuSqRfN72yjqDxl2Hh tIamhrR3mhRtsObeaU6h bCQbmDFrsXEkAPBpz7N2 QEI5xJK7MM7aXME9pvEz MEYgGJV8IZYsrHUaCjRt M47oFXJTzPMsy5NkD1sy CF1ozKJlHZEnxPqiKYYs ZiBzdGFwbGVzIHRoYXQg cJZneP0xQVClArl4NQNp crWrrbHnu0RqYD0qDNQf WIIlpMZfcF9vylB6ZPnd kVFhLSMkLe8hOZ5uPBJd z8A6pMAvrNBbpBLesoYd WqvpTWR2bIO4IJ8sIKX5 njJlCMBjZjX2DWKgFeFv vQ9pJQEeRJXibDDjzV1r xlCcudMpXQZ7qT3dNZEt UI6iBJIuwILvJWItnLze w5XfwQi6yLVuOON6O9Yw pLRvb6QevBzlDLblqeRg n0Hrd9BzxGnsvvLxmhM2 b60wG9Hhz8A7sZPyMyEg IFxwYXJ9 [facility] Phone: Pathologist Interpretation Location [facility], [address] [place] [address], [facility] [address], CLIA: [id number]; Joint Commission: O [id number]; CAP: [id number] [facility] Phone: Pathology report final diagnosis Narrative t9ctkJTzDFKrfGJaLWrj BUayysIsCDKtoUIrR3Vj mzzyXFamOG1dNJ4uwAax yUZyvSSsIBHhWuHbu9oa p843bFGra7vzOGEJWEwu GOMKJIt6qKxnR09ol0F4 YiivK68brCKgFTE8THOa JVNkqENoGLByPRS6WIMt bFHyS8ppTWLyFU6lgcvc XUgmHYeuTNBmpQF0QLKj jLPrQ0OiJDTuUGnkGWHu pxf3LzEbUb9ceLMnpPtg MFxwYXJkXHBsYWluXGZz MjAgUklHSFQgTUlERExF GBoNMhMjF0WtOKRQUrye T0FEC8QqDPvBFBELI64s EOSFVB3ZNQXJPgNQZ0jW RKYeA4vIACMHEXjBQVZN LSoBV6IWNKWZMMZqU1gS KiyITtNVUbTtX3TFA8tC ZTUAKZFQZZMKQY6VSoPZ NTQIX0CFNMXyRHTgowjk QTGiF58ldFBvdWpfWGVw ZGVzaXJlZCwgYWRkaXRp e76fmAWjkBMhyxAlIp8q CI7mG5XzhHOvpgLpJZ5n OvUmxNUwIs5krLCrBEPj h28pikZtmVSjcK8awBIp fQ== [facility] Work Phone: [facility] Work Phone: PHOSPHORUSon 01-25-2024 Phosphate [Mass/Vol] 4.9 mg/dL High 2.5-4.5 [facility] Comment on above: Performed By: #### Jamison GILL, [id number], [id number] ####Medical Transcriptionist: COURTNEY BENNETT ([id number])[facility] ([facility])[address] [place] [address] Phosphate [Mass/Vol] 5.0 mg/dL High 2.5-4.5 [facility] Comment on above: Performed By: #### Jamison ALARCON, LAB17, [id number] ####Medical Transcriptionist: COURTNEY BENNETT ([id number])[facility] ([facility])[address] [place] [address] [place] Phosphate [Moles/Vol]on 12-28 Phosphate [Mass/Vol] 4.9 mg/dL High 2.5 - 4 .5 mg/dL [facility] Phosphate [Mass/Vol] 5.0 mg/dL High 2.5 - 4 .5 mg/dL [facility] Progress Noteon 01-25-2024 Progress Note Normal [facility] Progress Note Normal [facility] Progress Note Normal [facility] Progress Note Normal [facility] Progress Note Normal [facility] Progress Note Normal [facility] XR CHEST 1 VIEWon 01-25-2024 XR CHEST 1 VIEW Normal [facility] XR Chest Single viewon 01-24 [facility] Radiology Study observation (narrative) [facility] BASIC METABOLIC PANELon 12-27 Anion gap [Moles/Vol] 14 mmol/L High 3-13 [facility] Comment on above: Performed By: #### L AB15 ####Medical Transcriptionist: COURTNEY BENNETT ([phone])[facility] ([facility])[address] [place] [address] Calcium [Mass/Vol] 8.3 mg/dL Low 8.4-10.4 [facility] Comment on above: Performed By: #### L AB15 ####Medical Transcriptionist: COURTNEY BENNETT ([id number])[facility] ([facility])[address] [place] [address] Chloride [Moles/Vol] 104 mmol/L Normal 98-107 [facility] Comment on above: Performed By: #### L AB15 ####Medical Transcriptionist: COURTNEY BENNETT ([id number])[facility] ([facility])[address] [place] [address] CO2 [Moles/Vol] 16 mmol/L Low 22-30 [facility] Comment on above: Performed By: #### L AB15 ####Medical Transcriptionist: COURTNEY BENNETT ([id number])[facility] ([facility])[address] [place] [address] Creatinine [Mass/Vol] 2.56 mg/dL High 0.66-1.25 [facility] Comment on above: Performed By: #### L AB15 ####Medical Transcriptionist: COURTNEY BENNETT ([id number])[facility] ([facility])[address] [place] [address] [place] GLOMERULAR FILTRATION RATE ML/MIN/1.73 SQ M.PREDICTED 25.2 mL/min/1.73m*2 Low >60.0 [facility] Comment on above: Result Comment: Calc ulation based on the Chronic Kidney Disease Epidemiology Collaboration (CKD-EPI) equation refit without adjustment for race Performed By: #### L AB15 ####Medical Transcriptionist: COURTNEY [id number])[facility] ([facility])[address] [place] [address] Glucose [Mass/Vol] 242 mg/dL High 70-100 [facility] Comment on above: Performed By: #### L AB15 ####Medical Transcriptionist: COURTNEY BENNETT ([id number])[facility] ([facility])[address] [place] [address] Potassium [Moles/Vol] 4.8 mmol/L Normal 3.5-5.1 [facility] Comment on above: Performed By: #### L AB15 ####Medical Transcriptionist: COURTNEY BENNETT ([id number])[facility] ([facility])[address] [place] [address] Sodium [Moles/Vol] 134 mmol/L Low 135-145 [facility] Comment on above: Performed By: #### L AB15 ####Medical Transcriptionist: COURTNEY BENNETT ([id number])[facility] ([facility])[address] [place] [address] Urea nitrogen [Mass/Vol] 24 mg/dL High 9-20 [facility] Comment on above: Performed By: #### L AB15 ####Medical Transcriptionist: COURTNEY BENNETT ([id number])[facility] ([facility])[address] [place] [address] Basic metabolic 1998 panelon 01-24-2024 Anion gap [Moles/Vol] 14 mmol/L High 3 - 13 mmol/L [facility] Calcium [Mass/Vol] 8.3 mg/dL Low 8.4 - 10. 4 mg/dL [facility] Chloride [Moles/Vol] 104 mmol/L 98 - 10 7 mmol/L [facility] CO2 [Moles/Vol] 16 mmol/L Low 22 - 30 mmol/L [facility] Creatinine [Mass/Vol] 2.56 mg/dL High 0.66 - 1.25 mg/dL [facility] GFR/1.73 sq M.predicted (S/P/Bld) [Vol rate/Area] 25.2 mL/min Low - PINF [facility] Glucose [Mass/Vol] 242 mg/dL High 70 - 100 mg/dL [facility] Interpretation and review of laboratory results Abnormal [facility] Potassium [Moles/Vol] 4.8 mmol/L 3.5 - 5.1 mmol/L [facility] Sodium [Moles/Vol] 134 mmol/L Low 135 - 145 mmol/L [facility] Urea nitrogen [Mass/Vol] 24 mg/dL High 9 - 20 mg/dL [facility] CALCIUM, IONIZEDon CALCIUM IONIZED 4.30 mg/dL Normal 4.30-5.20 [facility] Comment on above: Order Comment: Obtai n PRN and check ionized Ca level if serum Ca level less than 8.0 Performed By: #### L AB54 ####Medical Transcriptionist: COURTNEY BENNETT ([id number])[facility])[address] [place] [address] PH, IONIZED CALCIUM 7.33 Normal 7.31-7.46 [facility] Comment on above: Order Comment: Obtai n PRN and check ionized Ca level if serum Ca level less than 8.0 Performed By: #### L AB54 ####Medical Transcriptionist: COURTNEY BENNETT ([id number])[facility] ([facility])[address] [place] [address] CARECOORDon 01-24-2024 CARECOORD Normal [facility] CBC (HEMOGRAM)on 01-24-2024 Erythrocyte distribution width (RBC) [Ratio] 14.0 % Normal 11.5-15.0 [facility] Comment on above: Performed By: #### L [id number] ####Medical Transcriptionist: COURTNEY BENNETT ([id number])[facility] ([facility])[address] [place] [address] Hematocrit (Bld) [Volume fraction] 26.9 % Low 40.0-52.0 [facility] Comment on above: Performed By: #### L AB294 ####Medical Transcriptionist: COURTNEY BENNETT ([id number])[facility])[address] [place] [address] Hemoglobin (Bld) [Mass/Vol] 8.8 g/dL Low 13.0-18.0 [facility] Comment on above: Performed By: #### L AB294 ####Medical Transcriptionist: COURTNEY BENNETT ([id number])[facility])[address] [place] [address] IPF 7 Normal [facility] Comment on above: Performed By: #### L [id number] ####Medical Transcriptionist: COURTNEY BENNETT ([id number])[facility])[address] [place] [address] MCH (RBC) [Entitic mass] 28.5 pg Normal 26.0-34.0 [facility] Comment on above: Performed By: #### L AB294 ####Medical Transcriptionist: COURTNEY BENNETT ([id number])[facility])[address] [place] [address] MCHC 32.7 % Normal 30.5-36.0 [facility] Comment on above: Performed By: #### L AB294 ####Medical Transcriptionist: COURTNEY BENNETT ([id number])[facility] ([facility])[address] [place] [address] MCV (RBC) [Entitic vol] 87.1 fL Normal 77.0-99.0 [facility] Comment on above: Performed By: #### L [id number] ####Medical Transcriptionist: COURTNEY BENNETT ([id number])[facility])[address] [place] [address] Platelet mean volume (Bld) [Entitic vol] 11.5 fL Normal 9.0-12.7 [facility] Comment on above: Performed By: #### L [id number] ####Medical Transcriptionist: COURTNEY BENNETT ([id number])[facility])[address] [place] [address] Platelets (Bld) [#/Vol] 97 10*3/uL Low 140-440 [facility] Comment on above: Performed By: #### L [id number] ####Medical Transcriptionist: COURTNEY BENNETT ([id number])[facility])[address] [place] [address] RBC (Bld) [#/Vol] 3.09 10*6/uL Low 4.40-5.90 [facility] Comment on above: Performed By: #### L [id number] ####Medical Transcriptionist: COURTNEY BENNETT ([id number])[facility] [place] [address] WBC (Bld) [#/Vol] 9.5 10*3/uL Normal 3.6-10.7 [facility] Comment on above: Performed By: #### L [id number] ####Medical Transcriptionist: COURTNEY BENNETT ([id number])[facility] ([facility])[address] [place] [address] CBC panel Auto (Bld)on 01-23 Erythrocyte distribution width (RBC) [Ratio] 14.0 % 11.5 - 15.0 % [facility] Hematocrit (Bld) [Volume fraction] 26.9 % Low 40.0 - 52.0 % [facility] Hemoglobin (Bld) [Mass/Vol] 8.8 g/dL Low 13.0 - 18.0 g/dL [facility] Interpretation and review of laboratory results Abnormal [facility] IPF 7 [facility] MCH (RBC) [Entitic mass] 28.5 pg 26.0 - 34.0 pg [facility] MCHC (RBC) [Mass/Vol] 32.7 % 30.5 - 36.0 % [facility] MCV (RBC) [Entitic vol] 87.1 fL 77.0 - 99.0 fL [facility] Platelet mean volume (Bld) [Entitic vol] 11.5 fL 9.0 - 12.7 fL [facility] Platelets (Bld) [#/Vol] 97 10*3/uL Low 140 - 440 10*3/uL [facility] RBC (Bld) [#/Vol] 3.09 10*6/uL Low 4.40 - 5.9 0 10*6/uL [facility] WBC (Bld) [#/Vol] 9.5 10*3/uL 3.6 - 10.7 10*3/uL [facility] COMPREHENSIVE METABOLIC PANE Daniel 01-24-2024 Albumin [Mass/Vol] 4.6 g/dL Normal 3.5-5.0 [facility] Comment on above: Performed By: #### L [id number] ####Medical Transcriptionist: COURTNEY BENNETT ([id number])[facility] ([facility])[address] [place] [address] ALP [Catalytic activity/Vol] 43 U/L Normal 38-126 [facility] Comment on above: Performed By: #### L [id number] ####Medical Transcriptionist: COURTNEY BENNETT ([id number])[facility] ([facility])[address] [place] [address] ALT [Catalytic activity/Vol] 29 U/L Normal 0-49 [facility] Comment on above: Performed By: #### L [id number] ####Medical Transcriptionist: COURTNEY BENNETT ([id number])[facility] ([facility])[address] [place] [address] Anion gap [Moles/Vol] 14 mmol/L High 3-[address] [facility] Comment on above: Performed By: #### L [id number] ####Medical Transcriptionist: COURTNEY BENNETT ([id number])[facility] ([facility])[address] [place] [address] AST [Catalytic activity/Vol] 99 U/L High 15-46 [facility] Comment on above: Performed By: #### L [id number] ####Medical Transcriptionist: COURTNEY BENNETT ([phone])[facility] ([facility])[address] [place] [address] Bilirubin [Mass/Vol] 0.7 mg/dL Normal 0.2-1.3 [facility] Comment on above: Performed By: #### L [id number] ####Medical Transcriptionist: COURTNEY BENNETT ([id number])[facility] ([facility])[address] [place] [address] Calcium [Mass/Vol] 8.6 mg/dL Normal 8.4-10.4 [facility] Comment on above: Performed By: #### L [id number] ####Medical Transcriptionist: COURTNEY BENNETT ([id number])[facility] ([facility])[address] [place] [address] Chloride [Moles/Vol] 107 mmol/L Normal 98-107 [facility] Comment on above: Performed By: #### L [id number] ####Medical Transcriptionist: COURTNEY BENNETT ([id number])[facility] ([facility])[address] [place] [address] CO2 [Moles/Vol] 17 mmol/L Low 22-30 [facility] Comment on above: Performed By: #### L [id number] ####Medical Transcriptionist: COURTNEY BENNETT ([phone])[facility] ([facility])[address] [place] [address] Creatinine [Mass/Vol] 2.59 mg/dL High 0.66-1.[address] [facility] Comment on above: Performed By: #### L [id number] ####Medical Transcriptionist: COURTNEY BENNETT ([id number])[facility] ([facility])[address] [place] [address] GLOMERULAR FILTRATION RATE ML/MIN/1.73 SQ M.PREDICTED 24.9 mL/min/1.73m*2 Low >60.0 [facility] Comment on above: Result Comment: Calc ulation based on the Chronic Kidney Disease Epidemiology Collaboration (CKD-EPI) equation refit without adjustment for race Performed By: #### L AB17 ####Medical Transcriptionist: COURTNEY [id number])[facility] ([facility])[address] [place] [address] Glucose [Mass/Vol] 156 mg/dL High 70-100 [facility] Comment on above: Performed By: #### L AB17 ####Medical Transcriptionist: COURTNEY BENNETT ([phone])[facility] ([facility])[address] [place] [address] Potassium [Moles/Vol] 4.6 mmol/L Normal 3.5-5.1 [facility] Comment on above: Performed By: #### L AB17 ####Medical Transcriptionist: COURTNEY [phone])[facility] ([facility])[address] [place] [address] [place] Protein [Mass/Vol] 6.9 g/dL Normal 6.3-8.2 [facility] Comment on above: Performed By: #### L AB17 ####Medical Transcriptionist: COURTNEY BENNETT ([phone])[facility])[address] [place] [address] Sodium [Moles/Vol] 139 mmol/L Normal 135-145 [facility] Comment on above: Performed By: #### L AB17 ####Medical Transcriptionist: COURTNEY BENNETT ([phone])[facility] ([facility])[address] [place] [address] Urea nitrogen [Mass/Vol] 26 mg/dL High 9-20 [facility] Comment on above: Performed By: #### L AB17 ####Medical Transcriptionist: COURTNEY BENNETT ([phone])[facility])[address] [place] [address] Albumin [Mass/Vol] 4.5 g/dL Normal 3.5-5.0 [facility] Comment on above: Performed By: #### L AB103, LAB17, [id number] ####Medical Transcriptionist: COURTNEY BENNETT ([phone])[facility])[address] [place] [address] ALP [Catalytic activity/Vol] 37 U/L Low 38-126 [facility] Comment on above: Performed By: #### L AB103, LAB17, [id number] ####Medical Transcriptionist: COURTNEY BENNETT ([phone])[facility])[address] [place] [address] ALT [Catalytic activity/Vol] 50 U/L High 0-49 [facility] Comment on above: Performed By: #### L AB103, LAB17, [id number] ####Medical Transcriptionist: COURTNEY BENNETT ([phone])[facility])[address] [place] [address] Anion gap [Moles/Vol] 15 mmol/L High 3-[address] [facility] Comment on above: Performed By: #### L AB103, LAB17, [id number] ####Medical Transcriptionist: COURTNEY BENNETT ([phone])[facility] ([facility])[address] [place] [address] AST [Catalytic activity/Vol] 166 U/L High 15-46 [facility] Comment on above: Performed By: #### Jamison AB103, LAB17, [id number] ####Medical Transcriptionist: COURTNEY BENNETT ([phone])[facility] ([facility])[address] [place] [address] Bilirubin [Mass/Vol] 0.7 mg/dL Normal 0.2-1.3 [facility] Comment on above: Performed By: #### Jamison RODRIGUEZ, LAB17, [id number] ####Medical Transcriptionist: COURTNEY BENNETT ([phone])[facility] ([facility])[address] [place] [address] Calcium [Mass/Vol] 8.3 mg/dL Low 8.4-10.4 [facility] Comment on above: Performed By: #### Jamison RODRIGUEZ, LAB17, [id number] ####Medical Transcriptionist: COURTNEY BENNETT ([phone])[facility] ([facility])[address] [place] [address] [place] Chloride [Moles/Vol] 112 mmol/L High 98-107 [facility] Comment on above: Performed By: #### Jamison RODRIGUEZ, LAB17, [id number] ####Medical Transcriptionist: COURTNEY BENNETT ([phone])[facility] ([facility])[address] [place] [address] [place] CO2 [Moles/Vol] 15 mmol/L Low 22-30 [facility] Comment on above: Performed By: #### Jamison AB103, LAB17, [id number] ####Medical Transcriptionist: COURTNEY BENNETT ([phone])[facility] ([facility])[address] [place] [address] Creatinine [Mass/Vol] 2.18 mg/dL High 0.66-1.[address] [facility] Comment on above: Performed By: #### Jamison ABBlayne, LAB17, [id number] ####Medical Transcriptionist: COURTNEY BENNETT ([phone])[facility])[address] [place] [address] [place] GLOMERULAR FILTRATION RATE ML/MIN/1.73 SQ M.PREDICTED 30.6 mL/min/1.73m*2 Low >60.0 [facility] Comment on above: Result Comment: Calc ulation based on the Chronic Kidney Disease Epidemiology Collaboration (CKD-EPI) equation refit without adjustment for race Performed By: #### Jamison RODRIGUEZ, LAB17, [id number] ####Medical Transcriptionist: COURTNEY BENNETT ([phone])[facility] ([facility])[address] [place] [address] Glucose [Mass/Vol] 119 mg/dL High 70-100 [facility] Comment on above: Performed By: #### Jamison RODRIGUEZ, LAB17, [id number] ####Medical Transcriptionist: COURTNEY BENNETT ([phone])[facility])[address] [place] [address] Potassium [Moles/Vol] 4.6 mmol/L Normal 3.5-5.1 [facility] Comment on above: Performed By: #### Jamison RODRIGUEZ, LAB17, [id number] ####Medical Transcriptionist: COURTNEY BENNETT ([phone])[facility])[address] [place] [address] Protein [Mass/Vol] 6.2 g/dL Low 6.3-8.2 [facility] Comment on above: Performed By: #### Jamison RODRIGUEZ, LAB17, [id number] ####Medical Transcriptionist: COURTNEY BENNETT ([phone])[facility] ([facility])[address] [place] [address] [place] Sodium [Moles/Vol] 142 mmol/L Normal 135-145 [facility] Comment on above: Performed By: #### L MICHAEL, LAB17, [id number] ####Medical Transcriptionist: COURTNEY BENNETT ([phone])[facility])[address] [place] [address] [place] Urea nitrogen [Mass/Vol] 21 mg/dL High 9-20 [facility] Comment on above: Performed By: #### L AB103, LAB17, [id number] ####Medical Transcriptionist: COURTNEY BENNETT ([phone])[facility] ([facility])[address] [place] [address] CREATININE, URINE, RANDOMon 01-24-2024 CREATININE, URINE 123.1 mg/dL Normal No Range [facility] Comment on above: Performed By: #### L AB444, [id number] ####Medical Transcriptionist: COURTNEY BENNETT ([phone])[facility] ([facility])[address] [place] [address] Calcium.ionized [Moles/Vol]o n 01-24-2024 Calcium.ionized (Bld) [Moles/Vol] 4.30 mg/dL 4.30 - 5.20 mg/dL [facility] Interpretation and review of laboratory results Normal [facility] PH, IONIZED CALCIUM 7.33 7.31 - 7.46 [facility] Comprehensive metabolic 1998 panelon 01-24-2024 Albumin [Mass/Vol] 4.6 g/dL 3.5 - 5.0 g/dL [facility] ALP [Catalytic activity/Vol] 43 U/L 38 - 126 U/L [facility] ALT [Catalytic activity/Vol] 29 U/L 0 - 49 U/L [facility] Anion gap [Moles/Vol] 14 mmol/L High 3 - 13 mmol/L [facility] AST [Catalytic activity/Vol] 99 U/L High 15 - 46 U/L [facility] Bilirubin [Mass/Vol] 0.7 mg/dL 0.2 - 1 .3 mg/dL [facility] Calcium [Mass/Vol] 8.6 mg/dL 8.4 - 10. 4 mg/dL [facility] Chloride [Moles/Vol] 107 mmol/L 98 - 10 7 mmol/L [facility] CO2 [Moles/Vol] 17 mmol/L Low 22 - 30 mmol/L [facility] Creatinine [Mass/Vol] 2.59 mg/dL High 0.66 - 1.25 mg/dL [facility] GFR/1.73 sq M.predicted (S/P/Bld) [Vol rate/Area] 24.9 mL/min Low - PINF [facility] Glucose [Mass/Vol] 156 mg/dL High 70 - 100 mg/dL [facility] Interpretation and review of laboratory results Abnormal [facility] Potassium [Moles/Vol] 4.6 mmol/L 3.5 - 5.1 mmol/L [facility] Protein [Mass/Vol] 6.9 g/dL 6.3 - 8.2 g/dL [facility] Sodium [Moles/Vol] 139 mmol/L 135 - 145 mmol/L [facility] Urea nitrogen [Mass/Vol] 26 mg/dL High 9 - 20 mg/dL [facility] Albumin [Mass/Vol] 4.5 g/dL 3.5 - 5.0 g/dL [facility] ALP [Catalytic activity/Vol] 37 U/L Low 38 - 126 U/L [facility] ALT [Catalytic activity/Vol] 50 U/L High 0 - 49 U/L [facility] Anion gap [Moles/Vol] 15 mmol/L High 3 - 13 mmol/L [facility] AST [Catalytic activity/Vol] 166 U/L High 15 - 46 U/L [facility] Bilirubin [Mass/Vol] 0.7 mg/dL 0.2 - 1 .3 mg/dL [facility] Calcium [Mass/Vol] 8.3 mg/dL Low 8.4 - 10. 4 mg/dL [facility] Chloride [Moles/Vol] 112 mmol/L High 98 - 10 7 mmol/L [facility] CO2 [Moles/Vol] 15 mmol/L Low 22 - 30 mmol/L [facility] Creatinine [Mass/Vol] 2.18 mg/dL High 0.66 - 1.25 mg/dL [facility] GFR/1.73 sq M.predicted (S/P/Bld) [Vol rate/Area] 30.6 mL/min Low - PINF [facility] Glucose [Mass/Vol] 119 mg/dL High 70 - 100 mg/dL [facility] Potassium [Moles/Vol] 4.6 mmol/L 3.5 - 5.1 mmol/L [facility] Protein [Mass/Vol] 6.2 g/dL Low 6.3 - 8.2 g/dL [facility] Sodium [Moles/Vol] 142 mmol/L 135 - 145 mmol/L [facility] Urea nitrogen [Mass/Vol] 21 mg/dL High 9 - 20 mg/dL [facility] Consulton 01-24-2024 Consult Normal [facility] Consult Normal [facility] Consult Normal [facility] Creatinine (U) [Mass/Vol]on 01-24-2024 CREATININE, URINE 123.1 mg/dL No Range [facility] ECG 12-LEADon 01-24-2024 ECG 12-LEAD IMPRESSION: Sinus rhythm Prolonged QT interval Electronically Signed On 01-24-2024 16:25:58 EDT by Sher Patel Normal [facility] ECG 12-LEAD IMPRESSION: Sinus rhythm LVH by voltage Electronically Signed On 01-24-2024 09:36:58 EDT by Sher Patel Normal [facility] Laboratory - Chemistry and C hemistry - challengeon 01-24-2024 Sodium (24H U) [Mass/Vol] 58 mmol/L 30 - 90 mmol/L [facility] Glucose [Mass/Vol] 158 mg/dL High 70 - 100 mg/dL [facility] Glucose [Mass/Vol] 183 mg/dL High 70 - 100 mg/dL [facility] Glucose [Mass/Vol] 159 mg/dL High 70 - 100 mg/dL [facility] Glucose [Mass/Vol] 170 mg/dL High 70 - 100 mg/dL [facility] Glucose [Mass/Vol] 140 mg/dL High 70 - 100 mg/dL [facility] Glucose [Mass/Vol] 144 mg/dL High 70 - 100 mg/dL [facility] Glucose [Mass/Vol] 141 mg/dL High 70 - 100 mg/dL [facility] Glucose [Mass/Vol] 120 mg/dL High 70 - 100 mg/dL [facility] Glucose [Mass/Vol] 123 mg/dL High 70 - 100 mg/dL [facility] Glucose [Mass/Vol] 126 mg/dL High 70 - 100 mg/dL [facility] Magnesium [Mass/Vol] 2.6 mg/dL High 1.6 - 2 .3 mg/dL [facility] Glucose [Mass/Vol] 115 mg/dL High 70 - 100 mg/dL [facility] Glucose [Mass/Vol] 122 mg/dL High 70 - 100 mg/dL [facility] Laboratory - Coagulationon 0 01-24-2024 aPTT Coag (PPP) [Time] 34.2 s High 20.0 - 30.5 s [facility] INR Coag (PPP) [Relative time] 1.1 {INR} 0.9 - 1.1 [facility] PT Coag (Bld) [Time] 12.4 s High 9.0 - 12.0 s [facility] MAGNESIUMon 01-24-2024 Magnesium [Mass/Vol] 2.6 mg/dL High 1.6-2.3 [facility] Comment on above: Performed By: #### L AB103, LAB17, [id number] ####Medical Transcriptionist: COURTNEY BENNETT ([phone])[address] No Panel Informationon 01-23 Interpretation and review of laboratory results Normal [facility] Interpretation and review of laboratory results Abnormal [facility] Interpretation and review of laboratory results Abnormal [facility] CV [facility] Interpretation and review of laboratory results Abnormal [facility] Interpretation and review of laboratory results Abnormal [facility] Interpretation and review of laboratory results Abnormal [facility] P [place] 48 degrees [facility] HI Interval 179 ms [facility] QRS [place] -35 degrees [facility] QRSD Interval 92 ms [facility] QT Interval 401 ms [facility] QTC Interval 471 ms [facility] T Wave [place] 60 degrees [facility] CV [facility] Interpretation and review of laboratory results Abnormal [facility] Interpretation and review of laboratory results Abnormal [facility] Interpretation and review of laboratory results Abnormal [facility] Interpretation and review of laboratory results Abnormal [facility] Interpretation and review of laboratory results Abnormal [facility] Blood Expiration Date [id number] S [facility] Crossmatch interpretation COMP [facility] Dispense Status Released from [employer] [facility] Product Blood Type 5100 [facility] PRODUCT CODE [id number] [facility] PRODUCT CODE [id number] [facility] Unit ABO O [facility] Unit Number [id number] [facility] Number [id number] [facility] RH Positive [facility] Unit Volume 300 mL [facility] Interpretation and review of laboratory results Abnormal [facility] Interpretation and review of laboratory results Abnormal [facility] Interpretation and review of laboratory results Abnormal [facility] Interpretation and review of laboratory results Abnormal [facility] No Panel InformationOrdered By: Sher Patel on 01-24-2024 P [place] 41 degrees [facility] Work Phone: HI Interval 186 ms [facility] Work Phone: QRS [place] -27 degrees [facility] Work Phone: QRSD Interval 100 ms [facility] Work Phone: QT Interval 496 ms [facility] Work Phone: QTC Interval 504 ms [facility] Work Phone: T Wave [place] 77 degrees [facility] Work Phone: [facility] Work Phone: Nursing Noteon 01-24-2024 Nursing Note Normal [facility] PHOSPHORUSon 01-24-2024 Phosphate [Mass/Vol] 3.6 mg/dL Normal 2.5-4.5 [facility] Comment on above: Performed By: #### L AB103, LAB17, [id number] ####Medical Transcriptionist: COURTNEY BENNETT ([phone])[facility])[address] [place] [address] PROTIME AND APTTon aPTT Coag (Bld) [Time] 34.2 s High 20.0-30.5 [facility] Comment on above: Performed By: #### L [id number] ####Medical Transcriptionist: COURTNEY BENNETT ([phone])[facility])[address] [place] [address] INR Coag (PPP) [Relative time] 1.1 {INR} Normal 0.9-1.1 [facility] Comment on above: Result Comment: Elliott mmended Anticoagulant Therapy: SEE BELOW----- INR of 2.0 - 3.0 : - Prophylaxis of Venous Thrombosis (high-risk surgery) - Treatment of Venous Thrombosis - Treatment of Pulmonary Embolism (Includes tissue heart valves, Acute Myocardial Infarction to prevent systemic embolism, Valvular Heart Disease, and Atrial Fibrillation)----- INR of 2.5 - 3.5 : - Mechanical Prosthetic Valves (high risk) - If oral anticoagulant therapy is used to prevent Myocardial Infarction Performed By: #### L [id number] ####Medical Transcriptionist: COURTNEY BENNETT ([id number])[facility] ([employer])[address] [place] [address] PT Coag (PPP) [Time] 12.4 s High 9.0-12.0 [facility] Comment on above: Performed By: #### L [id number] ####Medical Transcriptionist: COURTNEY BENNETT ([phone])[facility] ([facility])[address] [place] [address] Phosphate [Moles/Vol]on 12-27 Interpretation and review of laboratory results Normal [facility] Phosphate [Mass/Vol] 3.6 mg/dL 2.5 - 4 .5 mg/dL [facility] Progress Noteon 01-24-2024 Progress Note Normal [facility] Progress Note Normal [facility] Progress Note Normal [facility] Progress Note Normal [facility] Progress Note Normal [facility] SODIUM, URINE, RANDOMon 12-27 Sodium (U) [Moles/Vol] 58 mmol/L Normal 30-90 [facility] Comment on above: Performed By: #### L [id number], [id number] ####Medical Transcriptionist: COURTNEY BENNETT ([id number])[facility] ([facility] [facility])[address] [place] [address] Vital signsOrdered By: Ginny Patel on 01-24-2024 Heart rate 62 /min bpm [facility] Work Phone: Vital signson 01-24-2024 Heart rate 83 /min bpm [facility] XR CHEST 1 VIEWon 01-24-2024 XR CHEST 1 VIEW Normal [facility] XR Chest Single viewon 01-23 [facility] Radiology Study observation (narrative) [facility] Chest Single viewOrdered By: Gi Alston on 01-24-2024 [facility] Work Phone: [phone] 01-23-2024 [id number] Normal [facility] Anesthesia Noteon 01-23-2024 Anesthesia Note Normal [facility] Anesthesia Note Normal [facility] BASIC METABOLIC PANELon 12-27 Anion gap [Moles/Vol] 9 mmol/L Normal 3-13 [facility] Comment on above: Performed By: #### L AB15, [id number] ####Medical Transcriptionist: COURTNEY BENNETT ([phone])[facility] ([facility])[address] [place] [address] Calcium [Mass/Vol] 8.1 mg/dL Low 8.4-10.4 [facility] Comment on above: Performed By: #### L AB15, [id number] ####Medical Transcriptionist: COURTNEY BENNETT ([phone])[facility] ([facility])[address] [place] [address] Chloride [Moles/Vol] 113 mmol/L High 98-107 [facility] Comment on above: Performed By: #### L AB15, [id number] ####Medical Transcriptionist: COURTNEY BENNETT ([phone])[facility] ([facility])[address] [place] [address] [place] CO2 [Moles/Vol] 17 mmol/L Low 22-30 [facility] Comment on above: Performed By: #### L AB15, [id number] ####Medical Transcriptionist: COURTNEY BENNETT ([phone])[facility] ([facility])[address] [place] [address] [place] Creatinine [Mass/Vol] 1.94 mg/dL High 0.66-1.25 [facility] Comment on above: Performed By: #### L AB15, [id number] ####Medical Transcriptionist: COURTNEY BENNETT ([phone])[facility] ([facility])[address] [place] [address] [place] GLOMERULAR FILTRATION RATE ML/MIN/1.73 SQ M.PREDICTED 35.2 mL/min/1.73m*2 Low >60.0 [facility] Comment on above: Result Comment: Calc ulation based on the Chronic Kidney Disease Epidemiology Collaboration (CKD-EPI) equation refit without adjustment for race Performed By: #### L AB15, [id number] ####Medical Transcriptionist: COURTNEY BENNETT ([phone])[facility] ([facility])[address] [place] [address] Glucose [Mass/Vol] 135 mg/dL High 70-100 [facility] Comment on above: Performed By: #### L AB15, [id number] ####Medical Transcriptionist: COURTNEY BENNETT ([phone])[facility])[address] [place] [address] Potassium [Moles/Vol] 4.3 mmol/L Normal 3.5-5.1 [facility] Comment on above: Performed By: #### L AB15, [id number] ####Medical Transcriptionist: COURTNEY BENNETT ([phone])[facility] ([facility])[address] [place] [address] [place] Sodium [Moles/Vol] 139 mmol/L Normal 135-145 [facility] Comment on above: Performed By: #### L AB15, [id number] ####Medical Transcriptionist: COURTNEY BENNETT ([phone])[facility] ([facility])[address] [place] [address] [place] Urea nitrogen [Mass/Vol] 20 mg/dL Normal 9-20 [facility] Comment on above: Performed By: #### L AB15, [id number] ####Medical Transcriptionist: COURTNEY BENNETT ([phone])[facility] ([facility])[address] [place] [address] [place] Anion gap [Moles/Vol] 7 mmol/L Normal 3-[address] [facility] Comment on above: Performed By: #### L AB113, [id number], LAB20, LAB15 ####Medical Transcriptionist: COURTNEY BENNETT ([phone])[facility])[address] [place] [address] [place] Calcium [Mass/Vol] 8.7 mg/dL Normal 8.4-10.4 [facility] Comment on above: Performed By: #### L AB113, [id number], LAB20, LAB15 ####Medical Transcriptionist: COURTNEY BENNETT ([phone])[facility] ([facility])[address] [place] [address] Chloride [Moles/Vol] 113 mmol/L High 98-107 [facility] Comment on above: Performed By: #### L AB113, [id number], LAB20, LAB15 ####Medical Transcriptionist: COURTNEY BENNETT ([phone])[facility] ([facility])[address] [place] [address] CO2 [Moles/Vol] 19 mmol/L Low 22-30 [facility] Comment on above: Performed By: #### L AB113, [id number], LAB20, LAB15 ####Medical Transcriptionist: COURTNEY BENNETT ([phone])[facility])[address] [place] [address] Creatinine [Mass/Vol] 1.86 mg/dL High 0.66-1.25 [facility] Comment on above: Performed By: #### L AB113, [id number], LAB20, LAB15 ####Medical Transcriptionist: COURTNEY BENNETT ([phone])[facility])[address] [place] [address] GLOMERULAR FILTRATION RATE ML/MIN/1.73 SQ M.PREDICTED 37.0 mL/min/1.73m*2 Low >60.0 [facility] Comment on above: Result Comment: Calc ulation based on the Chronic Kidney Disease Epidemiology Collaboration (CKD-EPI) equation refit without adjustment for race Performed By: #### L AB113, [id number], LAB20, LAB15 ####Medical Transcriptionist: COURTNEY BENNETT ([phone])[facility])[address] [place] [address] Glucose [Mass/Vol] 120 mg/dL High 70-100 [facility] Comment on above: Performed By: #### L AB113, [id number], LAB20, LAB15 ####Medical Transcriptionist: COURTNEY BENNETT ([phone])[facility] ([facility])[address] [place] [address] [place] Potassium [Moles/Vol] 4.5 mmol/L Normal 3.5-5.1 [facility] Comment on above: Performed By: #### L AB113, [id number], LAB20, LAB15 ####Medical Transcriptionist: COURTNEY BENNETT ([phone])[facility] ([facility])[address] [place] [address] Sodium [Moles/Vol] 138 mmol/L Normal 135-145 [facility] Comment on above: Performed By: #### L AB113, [id number], LAB20, LAB15 ####Medical Transcriptionist: COURTNEY BENNETT ([id number])[facility] ([facility])[address] [place] [address] Urea nitrogen [Mass/Vol] 21 mg/dL High 9-20 [facility] Comment on above: Performed By: #### L AB113, [id number], LAB20, LAB15 ####Medical Transcriptionist: COURTNEY BENNETT ([phone])[facility] ([facility])[address] [place] [address] [place] Anion gap [Moles/Vol] 8 mmol/L Normal 3-[address] [facility] Comment on above: Performed By: #### L AB113, LAB15, [id number] ####Medical Transcriptionist: COURTNEY BENNETT ([phone])[facility])[address] [place] [address] [place] Calcium [Mass/Vol] 8.5 mg/dL Normal 8.4-10.4 [facility] Comment on above: Performed By: #### L AB113, LAB15, [id number] ####Medical Transcriptionist: COURTNEY BENNETT ([phone])[facility] ([facility])[address] [place] [address] [place] Chloride [Moles/Vol] 106 mmol/L Normal 98-107 [facility] Comment on above: Performed By: #### L AB113, LAB15, [id number] ####Medical Transcriptionist: COURTNEY BENNETT ([phone])[facility] ([facility])[address] [place] [address] CO2 [Moles/Vol] 23 mmol/L Normal 22-30 [facility] Comment on above: Performed By: #### L AB113, LAB15, [id number] ####Medical Transcriptionist: COURTNEY BENNETT ([phone])[facility] ([facility])[address] [place] [address] Creatinine [Mass/Vol] 2.04 mg/dL High 0.66-1.25 [facility] Comment on above: Performed By: #### L AB113, LAB15, [id number] ####Medical Transcriptionist: COURTNEY BENNETT ([phone])[facility] ([facility])[address] [place] [address] GLOMERULAR FILTRATION RATE ML/MIN/1.73 SQ M.PREDICTED 33.2 mL/min/1.73m*2 Low >60.0 [facility] Comment on above: Result Comment: Calc ulation based on the Chronic Kidney Disease Epidemiology Collaboration (CKD-EPI) equation refit without adjustment for race Performed By: #### L AB113, LAB15, [id number] ####Medical Transcriptionist: COURTNEY BENNETT ([phone])[facility] ([facility])[address] [place] [address] Glucose [Mass/Vol] 123 mg/dL High 70-100 [facility] Comment on above: Performed By: #### L AB113, LAB15, [id number] ####Medical Transcriptionist: COURTNEY BENNETT ([phone])[facility] ([facility])[address] [place] [address] [place] Potassium [Moles/Vol] 4.0 mmol/L Normal 3.5-5.[address] [facility] Comment on above: Performed By: #### L AB113, LAB15, [id number] ####Medical Transcriptionist: COURTNEY BENNETT ([phone])[facility])[address] [place] [address] Sodium [Moles/Vol] 138 mmol/L Normal 135-145 [facility] Comment on above: Performed By: #### L AB113, LAB15, [id number] ####Medical Transcriptionist: COURTNEY BENNETT ([phone])[facility] ([facility])[address] [place] [address] Urea nitrogen [Mass/Vol] 25 mg/dL High 9-20 [facility] Comment on above: Performed By: #### L AB113, LAB15, [id number] ####Medical Transcriptionist: COURTNEY BENNETT ([phone])[facility] ([facility])[address] [place] [address] BLOOD GAS ARTERIALon 024 Base excess Calc (Bld) [Moles/Vol] -4.2000 mmol/L Low -3.0-3.0 [facility] Comment on above: Performed By: #### L AB76 ####Medical Transcriptionist: COURTNEY BENNETT ([phone])[facility] ([facility])[address] [place] [address] CO2 [Moles/Vol] 20.5 mmol/L Low 23.0-27.0 [facility] Comment on above: Performed By: #### L AB76 ####Medical Transcriptionist: COURTENY BENNETT ([phone])[facility] ([facility])[address] [place] [address] HCO3 (Bld) [Moles/Vol] 19.6 mmol/L Low 21.0-25.0 [facility] Comment on above: Performed By: #### L AB76 ####Medical Transcriptionist: COURTNEY BENNETT ([phone])[facility] ([facility])[address] [place] [address] Hemoglobin (Bld) [Mass/Vol] 9.3 g/dL Normal Screen only [facility] Comment on above: Performed By: #### L AB76 ####Medical Transcriptionist: COURTNEY BENNETT ([phone])[facility])[address] [place] [address] OXYGEN SATURATION (%) IN ARTERIAL BLOOD 99.1 % Normal 95.0-100.0 [facility] Comment on above: Performed By: #### L AB76 ####Medical Transcriptionist: COURTNEY BENNETT ([phone])[facility] ([facility])[address] [place] [address] PCO2 ARTERIAL 30.8 mm Hg Low >35.0-<45.0 [facility] Comment on above: Performed By: #### L AB76 ####Medical Transcriptionist: COURTNEY BENNETT ([phone])[facility] ([facility])[address] [place] [address] PH ARTERIAL 7.421 Normal 7.350-7.450 [facility] Comment on above: Performed By: #### L AB76 ####Medical Transcriptionist: COURTNEY BENNETT ([id number])[facility] ([facility])[address] [place] [address] PO2 ARTERIAL 301.7 mm Hg High 80.0-100.0 [facility] Comment on above: Performed By: #### L AB76 ####Medical Transcriptionist: COURTNEY BENNETT ([phone])[facility] ([facility])[address] [place] [address] SOURCE OF OXYGEN Vent Normal [facility] Comment on above: Result Comment: 100% Performed By: #### L AB76 ####Medical Transcriptionist: COURTNEY BENNETT ([phone])[facility] ([facility])[address] [place] [address] Basic metabolic 1998 panelon 01-23-2024 Anion gap [Moles/Vol] 9 mmol/L 3 - 13 mmol/L [facility] Calcium [Mass/Vol] 8.1 mg/dL Low 8.4 - 10. 4 mg/dL [facility] Chloride [Moles/Vol] 113 mmol/L High 98 - 10 7 mmol/L [facility] CO2 [Moles/Vol] 17 mmol/L Low 22 - 30 mmol/L [facility] Creatinine [Mass/Vol] 1.94 mg/dL High 0.66 - 1.25 mg/dL [facility] GFR/1.73 sq M.predicted (S/P/Bld) [Vol rate/Area] 35.2 mL/min Low - PINF [facility] Glucose [Mass/Vol] 135 mg/dL High 70 - 100 mg/dL [facility] Potassium [Moles/Vol] 4.3 mmol/L 3.5 - 5.1 mmol/L [facility] Sodium [Moles/Vol] 139 mmol/L 135 - 145 mmol/L [facility] Urea nitrogen [Mass/Vol] 20 mg/dL 9 - 20 mg/dL [facility] Anion gap [Moles/Vol] 7 mmol/L 3 - 13 mmol/L [facility] Calcium [Mass/Vol] 8.7 mg/dL 8.4 - 10. 4 mg/dL [facility] Chloride [Moles/Vol] 113 mmol/L High 98 - 10 7 mmol/L [facility] CO2 [Moles/Vol] 19 mmol/L Low 22 - 30 mmol/L [facility] Creatinine [Mass/Vol] 1.86 mg/dL High 0.66 - 1.25 mg/dL [facility] GFR/1.73 sq M.predicted (S/P/Bld) [Vol rate/Area] 37.0 mL/min Low - PINF [facility] Glucose [Mass/Vol] 120 mg/dL High 70 - 100 mg/dL [facility] Potassium [Moles/Vol] 4.5 mmol/L 3.5 - 5.1 mmol/L [facility] Sodium [Moles/Vol] 138 mmol/L 135 - 145 mmol/L [facility] Urea nitrogen [Mass/Vol] 21 mg/dL High 9 - 20 mg/dL [facility] Anion gap [Moles/Vol] 8 mmol/L 3 - 13 mmol/L [facility] Calcium [Mass/Vol] 8.5 mg/dL 8.4 - 10. 4 mg/dL [facility] Chloride [Moles/Vol] 106 mmol/L 98 - 10 7 mmol/L [facility] CO2 [Moles/Vol] 23 mmol/L 22 - 30 mmol/L [facility] Creatinine [Mass/Vol] 2.04 mg/dL High 0.66 - 1.25 mg/dL [facility] GFR/1.73 sq M.predicted (S/P/Bld) [Vol rate/Area] 33.2 mL/min Low - PINF [facility] Glucose [Mass/Vol] 123 mg/dL High 70 - 100 mg/dL [facility] Interpretation and review of laboratory results Abnormal [facility] Potassium [Moles/Vol] 4.0 mmol/L 3.5 - 5.1 mmol/L [facility] Sodium [Moles/Vol] 138 mmol/L 135 - 145 mmol/L [facility] Urea nitrogen [Mass/Vol] 25 mg/dL High 9 - 20 mg/dL [facility] CALCIUM, IONIZEDon 4 CALCIUM IONIZED 4.40 mg/dL Normal 4.30-5.20 [facility] Comment on above: Performed By: #### L AB54 ####Medical Transcriptionist: COURTNEY BENNETT ([phone])[facility])[address] [place] [address] PH, IONIZED CALCIUM 7.32 Normal 7.31-7.46 [facility] Comment on above: Performed By: #### L AB54 ####Medical Transcriptionist: COURTNEY BENNETT ([phone])[facility])[address] [place] [address] CALCIUM IONIZED 4.90 mg/dL Normal 4.30-5.20 [facility] Comment on above: Performed By: #### L AB54 ####Medical Transcriptionist: COURTNEY BENNETT ([phone])[facility] ([facility])[address] [place] [address] PH, IONIZED CALCIUM 7.42 Normal 7.31-7.46 [facility] Comment on above: Performed By: #### L AB54 ####Medical Transcriptionist: COURTNEY BENNETT ([phone])[facility])[address] [place] [address] CALCIUM IONIZED 4.50 mg/dL Normal 4.30-5.20 [facility] Comment on above: Performed By: #### L AB54 ####Medical Transcriptionist: COURTNEY BENNETT ([phone])[facility])[address] [place] [address] PH, IONIZED CALCIUM 7.30 Low 7.31-7.46 [facility] Comment on above: Performed By: #### L AB54 ####Medical Transcriptionist: COURTNEY BENNETT ([phone])[facility])[address] [place] [address] CBC (HEMOGRAM)on 01-23-2024 Erythrocyte distribution width (RBC) [Ratio] 13.7 % Normal 11.5-15.0 [facility] Comment on above: Performed By: #### L [id number] ####Medical Transcriptionist: COURTNEY BENNETT ([id number])[facility] ([facility])[address] [place] [address] Hematocrit (Bld) [Volume fraction] 30.7 % Low 40.0-52.0 [facility] Comment on above: Performed By: #### L [id number] ####Medical Transcriptionist: COURTNEY BENNETT ([phone])[facility])[address] [place] [address] Hemoglobin (Bld) [Mass/Vol] 10.1 g/dL Low 13.0-18.0 [facility] Comment on above: Performed By: #### L [id number] ####Medical Transcriptionist: COURTNEY BENNETT ([phone])[facility] ([facility])[address] [place] [address] MCH (RBC) [Entitic mass] 28.2 pg Normal 26.0-34.0 [facility] Comment on above: Performed By: #### L [id number] ####Medical Transcriptionist: COURTNEY BENNETT ([phone])[facility])[address] [place] [address] MCHC 32.9 % Normal 30.5-36.0 [facility] Comment on above: Performed By: #### L [id number] ####Medical Transcriptionist: COURTNEY BENNETT ([phone])[facility] ([facility])[address] [place] [address] MCV (RBC) [Entitic vol] 85.8 fL Normal 77.0-99.0 [facility] Comment on above: Performed By: #### L [id number] ####Medical Transcriptionist: COURTNEY BENNETT ([phone])[facility])[address] [place] [address] Platelet mean volume (Bld) [Entitic vol] 11.2 fL Normal 9.0-12.7 [facility] Comment on above: Performed By: #### L [id number] ####Medical Transcriptionist: COURTNEY BENNETT ([phone])[facility])[address] [place] [address] Platelets (Bld) [#/Vol] 104 10*3/uL Low 140-440 [facility] Comment on above: Performed By: #### L [id number] ####Medical Transcriptionist: COURTNEY BENNETT ([phone])[facility])[address] [place] [address] RBC (Bld) [#/Vol] 3.58 10*6/uL Low 4.40-5.90 [facility] Comment on above: Performed By: #### L [id number] ####Medical Transcriptionist: COURTNEY BENNETT ([phone])[facility])[address] [place] [address] WBC (Bld) [#/Vol] 7.9 10*3/uL Normal 3.6-10.7 [facility] Comment on above: Performed By: #### L [id number] ####Medical Transcriptionist: COURTNEY BENNETT ([id number])[facility])[address] [place] [address] Erythrocyte distribution width (RBC) [Ratio] 13.7 % Normal 11.5-15.0 [facility] Comment on above: Performed By: #### L [id number] ####Medical Transcriptionist: COURTNEY BENNETT ([phone])[facility])[address] [place] [address] Hematocrit (Bld) [Volume fraction] 26.0 % Low 40.0-52.0 [facility] Comment on above: Performed By: #### L [id number] ####Medical Transcriptionist: COURTNEY BENNETT ([phone])[facility])[address] [place] [address] Hemoglobin (Bld) [Mass/Vol] 8.6 g/dL Low 13.0-18.0 [facility] Comment on above: Performed By: #### L [id number] ####Medical Transcriptionist: COURTNEY BENNETT ([phone])[facility])[address] [place] [address] IPF 7 Normal [facility] Comment on above: Performed By: #### L [id number] ####Medical Transcriptionist: COURTNEY BENNETT ([phone])[facility])[address] [place] [address] MCH (RBC) [Entitic mass] 28.2 pg Normal 26.0-34.0 [facility] Comment on above: Performed By: #### L [id number] ####Medical Transcriptionist: COURTNEY BENNETT ([phone])[facility])[address] [place] [address] MCHC 33.1 % Normal 30.5-36.0 [facility] Comment on above: Performed By: #### L [id number] ####Medical Transcriptionist: COURTNEY BENNETT ([phone])[facility])[address] [place] [address] MCV (RBC) [Entitic vol] 85.2 fL Normal 77.0-99.0 [facility] Comment on above: Performed By: #### L [id number] ####Medical Transcriptionist: COURTNEY BENNETT ([phone])[facility])[address] [place] [address] Platelet mean volume (Bld) [Entitic vol] 12.2 fL Normal 9.0-12.7 [facility] Comment on above: Performed By: #### L [id number] ####Medical Transcriptionist: COURTNEY BENNETT ([phone])[facility])[address] [place] [address] Platelets (Bld) [#/Vol] 76 10*3/uL Low 140-440 [facility] Comment on above: Performed By: #### L [id number] ####Medical Transcriptionist: COURTNEY BENNETT ([phone])[facility])[address] [place] [address] [place] RBC (Bld) [#/Vol] 3.05 10*6/uL Low 4.40-5.90 [facility] Comment on above: Performed By: #### L [id number] ####Medical Transcriptionist: COURTNEY BENNETT ([phone])[facility] ([facility])[address] [place] [address] WBC (Bld) [#/Vol] 6.3 10*3/uL Normal 3.6-10.7 [facility] Comment on above: Performed By: #### L [id number] ####Medical Transcriptionist: COURTNEY BENNETT ([phone])[facility])[address] [place] [address] CBC W Auto Differential pane l (Bld)Ordered By: Colton Castañeda on 01-23-2024 Basophils (Bld) [#/Vol] 0.1 10*3/uL 0.0 - 0.2 10*3/uL [facility] Basophils/100 WBC (Bld) 0.7 % 0.0 - 2.0 % [facility] Eosinophils (Bld) [#/Vol] 0.2 10*3/uL 0.0 - 0.5 10*3/uL [facility] Eosinophils/100 WBC (Bld) 2.7 % 0.0 - 6.0 % [facility] Erythrocyte distribution width (RBC) [Ratio] 13.7 % 11.5 - 15.0 % [facility] Hematocrit (Bld) [Volume fraction] 44.6 % 40.0 - 52.0 % [facility] Hemoglobin (Bld) [Mass/Vol] 14.4 g/dL 13.0 - 18.0 g/dL [facility] Immature granulocytes (Bld) [#/Vol] 0.0 10*3/uL NINF - 0.1 10*3/uL [facility] Immature granulocytes/100 WBC (Bld) 0.2 % 0.0 - 2.0 % [facility] Interpretation and review of laboratory results Abnormal [facility] Lymphocytes (Bld) [#/Vol] 4.3 10*3/uL 1.0 - 4.3 10*3/uL [facility] Lymphocytes/100 WBC (Bld) 49.1 % High 15.0 - 45.0 % [facility] MCH (RBC) [Entitic mass] 27.4 pg 26.0 - 34.0 pg [facility] MCHC (RBC) [Mass/Vol] 32.3 % 30.5 - 36.0 % [facility] MCV (RBC) [Entitic vol] 85.0 fL 77.0 - 99.0 fL [facility] Monocytes (Bld) [#/Vol] 0.6 10*3/uL 0.0 - 0.9 10*3/uL [facility] Monocytes/100 WBC (Bld) 6.6 % 5.0 - 13.0 % [facility] Neutrophils (Bld) [#/Vol] 3.6 10*3/uL 1.8 - 7.5 10*3/uL [facility] Neutrophils/100 WBC (Bld) 40.7 % 38.0 - 82.0 % [facility] Nucleated RBC/100 WBC (Bld) [Ratio] 0.0 % [facility] Platelet mean volume (Bld) [Entitic vol] 11.8 fL 9.0 - 12.7 fL [facility] Platelets (Bld) [#/Vol] 195 10*3/uL 140 - 440 10*3/uL [facility] RBC (Bld) [#/Vol] 5.25 10*6/uL 4.40 - 5.9 0 10*6/uL [facility] WBC (Bld) [#/Vol] 8.8 10*3/uL 3.6 - 10.7 10*3/uL [facility] CBC WITH AUTO DIFFERENTIALon 01-23-2024 Basophils (Bld) [#/Vol] 0.1 10*3/uL Normal 0.0-0.2 [facility] Comment on above: Performed By: #### L [id number] ####Medical Transcriptionist: COURTNEY BENNETT ([id number])[facility] ([facility])[address] [place] [address] Basophils/100 WBC (Bld) 0.7 % Normal 0.0-2.0 [facility] Comment on above: Performed By: #### L [id number] ####Medical Transcriptionist: COURTNEY BENNETT ([phone])[facility] Eosinophils (Bld) [#/Vol] 0.2 10*3/uL Normal 0.0-0.5 [facility] Comment on above: Performed By: #### L [id number] ####Medical Transcriptionist: COURTNEY BENNETT ([phone])[facility])[address] [place] [address] Eosinophils/100 WBC (Bld) 2.7 % Normal 0.0-6.0 [facility] Comment on above: Performed By: #### L [id number] ####Medical Transcriptionist: COURTNEY BENNETT ([phone])[address] Erythrocyte distribution width (RBC) [Ratio] 13.7 % Normal 11.5-15.0 [facility] Comment on above: Performed By: #### L [id number] ####Medical Transcriptionist: COURTNEY BENNETT ([phone])[facility])[address] [place] [address] Hematocrit (Bld) [Volume fraction] 44.6 % Normal 40.0-52.0 [facility] Comment on above: Performed By: #### L [id number] ####Medical Transcriptionist: COURTNEY BENNETT ([phone])[address] Hemoglobin (Bld) [Mass/Vol] 14.4 g/dL Normal 13.0-18.0 [facility] Comment on above: Performed By: #### L [id number] ####Medical Transcriptionist: COURTNEY BENNETT ([phone])[facility])[address] [place] [address] IMMATURE GRANS % 0.2 % Normal 0.0-2.0 [facility] Comment on above: Performed By: #### L [id number] ####Medical Transcriptionist: COURTNEY BENNETT ([phone])[address] IMMATURE GRANS ABSOLUTE 0.0 10*3/uL Normal <0.1 [facility] Comment on above: Performed By: #### L [id number] ####Medical Transcriptionist: COURTNEY BENNETT ([phone])[facility])[address] [place] [address] Lymphocytes (Bld) [#/Vol] 4.3 10*3/uL Normal 1.0-4.3 [facility] Comment on above: Performed By: #### L [id number] ####Medical Transcriptionist: COURTNEY BENNETT ([id number])[facility])[address] [place] [address] Lymphocytes/100 WBC (Bld) 49.1 % High 15.0-45.0 [facility] Comment on above: Performed By: #### L [id number] ####Medical Transcriptionist: COURTNEY BENNETT ([phone])[facility])[address] [place] [address] MCH (RBC) [Entitic mass] 27.4 pg Normal 26.0-34.0 [facility] Comment on above: Performed By: #### L [id number] ####Medical Transcriptionist: COURTNEY BENNETT ([phone])[facility])[address] [place] [address] MCHC 32.3 % Normal 30.5-36.0 [facility] Comment on above: Performed By: #### L [id number] ####Medical Transcriptionist: COURTNEY BENNETT ([phone])[facility])[address] [place] [address] MCV (RBC) [Entitic vol] 85.0 fL Normal 77.0-99.0 [facility] Comment on above: Performed By: #### L [id number] ####Medical Transcriptionist: COURTNEY BENNETT ([phone])[facility])[address] [place] [address] Monocytes (Bld) [#/Vol] 0.6 10*3/uL Normal 0.0-0.9 [facility] Comment on above: Performed By: #### L [id number] ####Medical Transcriptionist: COURTNEY BENNETT ([phone])[facility])[address] [place] [address] Monocytes/100 WBC (Bld) 6.6 % Normal 5.0-13.0 [facility] Comment on above: Performed By: #### L [id number] ####Medical Transcriptionist: COURTNEY BENNETT ([phone])[facility] ([facility])[address] [place] [address] NEUTROPHILS ABSOLUTE 3.6 10*3/uL Normal 1.8-7.[address] [facility] Comment on above: Performed By: #### L [id number] ####Medical Transcriptionist: COURTNEY BENNETT ([phone])[facility] ([facility])[address] [place] [address] Neutrophils/100 WBC (Bld) 40.7 % Normal 38.0-82.0 [facility] Comment on above: Performed By: #### L [id number] ####Medical Transcriptionist: COURTNEY BENNETT ([phone])[facility] ([facility])[address] [place] [address] NRBC 0.0 /100 WBCs Normal 0.0-2.0 [facility] Comment on above: Performed By: #### L [id number] ####Medical Transcriptionist: COURTNEY BENNETT ([phone])[facility] ([facility])[address] [place] [address] Platelet mean volume (Bld) [Entitic vol] 11.8 fL Normal 9.0-12.7 [facility] Comment on above: Performed By: #### L [id number] ####Medical Transcriptionist: COURTNEY BENNETT ([id number])[facility] ([facility])[address] [place] [address] [place] Platelets (Bld) [#/Vol] 195 10*3/uL Normal 140-440 [facility] Comment on above: Performed By: #### L [id number] ####Medical Transcriptionist: COURTNEY BENNETT ([phone])[facility] ([facility])[address] [place] [address] RBC (Bld) [#/Vol] 5.25 10*6/uL Normal 4.40-5.90 [facility] Comment on above: Performed By: #### L [id number] ####Medical Transcriptionist: COURTNEY BENNETT ([phone])[facility] ([facility])[address] [place] [address] WBC (Bld) [#/Vol] 8.8 10*3/uL Normal 3.6-10.7 [facility] Comment on above: Performed By: #### L [id number] ####Medical Transcriptionist: COURTNEY BENNETT ([id number])[facility] ([address] CBC panel Auto (Bld)Ordered By: Brielle Panda on 01-23-2024 Erythrocyte distribution width (RBC) [Ratio] 13.7 % 11.5 - 15.0 % [facility] Hematocrit (Bld) [Volume fraction] 30.7 % Low 40.0 - 52.0 % [facility] Hemoglobin (Bld) [Mass/Vol] 10.1 g/dL Low 13.0 - 18.0 g/dL [facility] Interpretation and review of laboratory results Abnormal [facility] MCH (RBC) [Entitic mass] 28.2 pg 26.0 - 34.0 pg [facility] MCHC (RBC) [Mass/Vol] 32.9 % 30.5 - 36.0 % [facility] MCV (RBC) [Entitic vol] 85.8 fL 77.0 - 99.0 fL [facility] Platelet mean volume (Bld) [Entitic vol] 11.2 fL 9.0 - 12.7 fL [facility] Platelets (Bld) [#/Vol] 104 10*3/uL Low 140 - 440 10*3/uL [facility] RBC (Bld) [#/Vol] 3.58 10*6/uL Low 4.40 - 5.9 0 10*6/uL [facility] WBC (Bld) [#/Vol] 7.9 10*3/uL 3.6 - 10.7 10*3/uL [facility] CBC panel Auto (Bld)Ordered By: Yanelis Gordon on 01-23-2024 Erythrocyte distribution width (RBC) [Ratio] 13.7 % 11.5 - 15.0 % [facility] Hematocrit (Bld) [Volume fraction] 26.0 % Low 40.0 - 52.0 % [facility] Hemoglobin (Bld) [Mass/Vol] 8.6 g/dL Low 13.0 - 18.0 g/dL [facility] Interpretation and review of laboratory results Abnormal [facility] IPF 7 [facility] MCH (RBC) [Entitic mass] 28.2 pg 26.0 - 34.0 pg [facility] MCHC (RBC) [Mass/Vol] 33.1 % 30.5 - 36.0 % [facility] MCV (RBC) [Entitic vol] 85.2 fL 77.0 - 99.0 fL [facility] Platelet mean volume (Bld) [Entitic vol] 12.2 fL 9.0 - 12.7 fL [facility] Platelets (Bld) [#/Vol] 76 10*3/uL Low 140 - 440 10*3/uL [facility] RBC (Bld) [#/Vol] 3.05 10*6/uL Low 4.40 - 5.9 0 10*6/uL [facility] WBC (Bld) [#/Vol] 6.3 10*3/uL 3.6 - 10.7 10*3/uL [facility] Calcium.ionized [Moles/Vol]o n 01-23-2024 Calcium.ionized (Bld) [Moles/Vol] 4.40 mg/dL 4.30 - 5.20 mg/dL [facility] Interpretation and review of laboratory results Normal [facility] PH, IONIZED CALCIUM 7.32 7.31 - 7.46 [facility] Calcium.ionized (Bld) [Moles/Vol] 4.90 mg/dL 4.30 - 5.20 mg/dL [facility] Interpretation and review of laboratory results Normal [facility] PH, IONIZED CALCIUM 7.42 7.31 - 7.46 [facility] Calcium.ionized [Moles/Vol]O rdered By: Jazlyn Heart on 01-23-2024 Calcium.ionized (Bld) [Moles/Vol] 4.50 mg/dL 4.30 - 5.20 mg/dL [facility] Interpretation and review of laboratory results Abnormal [facility] PH, IONIZED CALCIUM 7.30 Low 7.31 - 7.46 [facility] Health Consulton 01-23-2024 Consult Normal [facility] Consult Normal [facility] ECG 12-LEADon 01-23-2024 ECG 12-LEAD IMPRESSION: Sinus bradycardia LVH by voltage Borderline T abnormalities, inferior leads Electronically Signed On 01-23-2024 10:43:12 EDT by Héctor Peacock Normal [facility] FIBRINOGENon 01-23-2024 FIBRINOGEN 220 mg/dL Normal 200-400 [facility] Comment on above: Performed By: #### L [id number], [id number] ####Medical Transcriptionist: COURTNEY BENNETT ([phone])[facility])[address] [place] [address] Fibrinogen Coag (PPP) [Mass/ Vol]on 01-23-2024 Interpretation and review of laboratory results Normal [facility] HEPATIC FUNCTION PANELon Albumin [Mass/Vol] 2.5 g/dL Low 3.5-5.0 [facility] Comment on above: Performed By: #### L [id number], [id number], [id number], LAB15 ####Medical Transcriptionist: COURTNEY BENNETT ([id number])[facility])[address] [place] [address] ALP [Catalytic activity/Vol] 36 U/L Low 38-126 [facility] Comment on above: Performed By: #### L [id number], [id number], LAB20, LAB15 ####Medical Transcriptionist: COURTNEY BENNETT ([id number])[facility] ([facility])[address] [place] [address] ALT [Catalytic activity/Vol] 43 U/L Normal 0-49 [facility] Comment on above: Performed By: #### L AB113, [id number], LAB20, LAB15 ####Medical Transcriptionist: COURTNEY BENNETT ([phone])[facility])[address] [place] [address] AST [Catalytic activity/Vol] 99 U/L High 15-46 [facility] Comment on above: Performed By: #### L AB113, [id number], LAB20, LAB15 ####Medical Transcriptionist: COURTNEY BENNETT ([phone])[facility])[address] [place] [address] Bilirubin [Mass/Vol] 0.7 mg/dL Normal 0.2-1.3 [facility] Comment on above: Performed By: #### L AB113, [id number], LAB20, LAB15 ####Medical Transcriptionist: COURTNEY BENNETT ([phone])[facility])[address] [place] [address] Bilirubin.indirect [Mass/Vol] 0.0 mg/dL Normal 0.0-0.3 [facility] Comment on above: Performed By: #### L AB113, [id number], LAB20, LAB15 ####Medical Transcriptionist: COURTNEY BENNETT ([phone])[facility])[address] [place] [address] Protein [Mass/Vol] 4.6 g/dL Low 6.3-8.2 [facility] Comment on above: Performed By: #### L AB113, [id number], LAB20, LAB15 ####Medical Transcriptionist: COURTNEY BENNETT ([phone])[facility])[address] [place] [address] Hepatic function 2000 panelo n 01-23-2024 Albumin [Mass/Vol] 2.5 g/dL Low 3.5 - 5.0 g/dL [facility] ALP [Catalytic activity/Vol] 36 U/L Low 38 - 126 U/L [facility] ALT [Catalytic activity/Vol] 43 U/L 0 - 49 U/L [facility] AST [Catalytic activity/Vol] 99 U/L High 15 - 46 U/L [facility] Bilirubin [Mass/Vol] 0.7 mg/dL 0.2 - 1 .3 mg/dL [facility] Bilirubin.conjugated [Mass/Vol] 0.0 mg/dL 0.0 - 0.3 mg/dL [facility] Interpretation and review of laboratory results Abnormal [facility] Protein [Mass/Vol] 4.6 g/dL Low 6.3 - 8.2 g/dL [facility] IDNon 01-23-2024 IDN Normal [facility] System [facility] Laboratory - Chemistry and C hemistry - challengeon 01-23-2024 Glucose [Mass/Vol] 151 mg/dL High 70 - 100 mg/dL [facility] Glucose [Mass/Vol] 154 mg/dL High 70 - 100 mg/dL [facility] Glucose [Mass/Vol] 154 mg/dL High 70 - 100 mg/dL [facility] Glucose [Mass/Vol] 161 mg/dL High 70 - 100 mg/dL [facility] Glucose [Mass/Vol] 138 mg/dL High 70 - 100 mg/dL [facility] Glucose [Mass/Vol] 128 mg/dL High 70 - 100 mg/dL [facility] Magnesium [Mass/Vol] 2.9 mg/dL High 1.6 - 2 .3 mg/dL [facility] Glucose [Mass/Vol] 104 mg/dL High 70 - 100 mg/dL [facility] Glucose [Mass/Vol] 83 mg/dL 70 - 100 mg/dL [facility] Glucose [Mass/Vol] 95 mg/dL 70 - 100 mg/dL [facility] Magnesium [Mass/Vol] 3.9 mg/dL High 1.6 - 2 .3 mg/dL [facility] Magnesium [Mass/Vol] 2.0 mg/dL 1.6 - 2 .3 mg/dL [facility] Laboratory - Chemistry and C hemistry - challengeOrdered By: Radha Obregon on 01-23-2024 Base excess Calc (Bld) [Moles/Vol] -4.2000 mmol/L Low -3.0 - 3.0 mmol/L [facility] CO2 (Bld) [Partial pressure] 30.8 mm[Hg] Low - PINF [facility] CO2 [Moles/Vol] 20.5 mmol/L Low 23.0 - 27.0 mmol/L [facility] HCO3 (Bld) [Moles/Vol] 19.6 mmol/L Low 21.0 - 25.0 mmol/L [facility] Oxygen (Bld) [Partial pressure] 301.7 mm[Hg] High [facility] pH (Bld) 7.421 [pH] 7.350 - 7.450 [facility] Laboratory - Coagulationon 0 01-23-2024 Fibrinogen Coag (PPP) [Mass/Vol] 220 mg/dL 200 - 400 mg/dL [facility] aPTT Coag (PPP) [Time] 32.5 s High 20.0 - 30.5 s [facility] INR Coag (PPP) [Relative time] 1.6 {INR} High 0.9 - 1.1 [facility] PT Coag (Bld) [Time] 16.8 s High 9.0 - 12.0 s [facility] Laboratory - Hematology and Cell countsOrdered By: Radha Obregon on 01-23-2024 Hemoglobin (Bld) [Mass/Vol] 9.3 g/dL Screen only [facility] MAGNESIUMon 01-23-2024 Magnesium [Mass/Vol] 2.9 mg/dL High 1.6-2.3 [facility] Comment on above: Performed By: #### L AB15, [id number] ####Medical Transcriptionist: COURTNEY BENNETT ([phone])[address] Magnesium [Mass/Vol] 3.9 mg/dL High 1.6-2.3 [facility] Comment on above: Performed By: #### L AB113, [id number], LAB20, LAB15 ####Medical Transcriptionist: COURTNEY BENNETT ([id number])[address] Magnesium [Mass/Vol] 2.0 mg/dL Normal 1.6-2.3 [facility] Comment on above: Performed By: #### L AB113, LAB15, [id number] ####Medical Transcriptionist: COURTNEY BENNETT ([phone])[address] No Panel Informationon 01-22 Interpretation and review of laboratory results Abnormal [facility] Interpretation and review of laboratory results Abnormal [facility] Interpretation and review of laboratory results Abnormal [facility] Interpretation and review of laboratory results Abnormal [facility] Interpretation and review of laboratory results Abnormal [facility] Interpretation and review of laboratory results Abnormal [facility] Interpretation and review of laboratory results Abnormal [facility] Interpretation and review of laboratory results Abnormal [facility] Interpretation and review of laboratory results Normal [facility] Interpretation and review of laboratory results Normal [facility] Interpretation and review of laboratory results Abnormal [facility] Interpretation and review of laboratory results Abnormal [facility] CV EPIPHANY [facility] Interpretation and review of laboratory results Normal [facility] No Panel InformationOrdered By: Radha Obregon on 01-23-2024 Interpretation and review of laboratory results Abnormal [facility] Source Of Oxygen Vent [facility] No Panel InformationOrdered By: Héctor Peacock on 01-23-2024 P [place] 37 degrees [facility] Work Phone: HI Interval 159 ms [facility] Work Phone: QRS [place] -5 degrees [facility] Work Phone: QRSD Interval 93 ms [facility] Work Phone: QT Interval 480 ms [facility] Work Phone: QTC Interval 448 ms [facility] Work Phone: T Wave [place] -13 degrees [facility] Work Phone: [facility] Work Phone: Op Noteon 01-23-2024 Op Note Normal [facility] PHOSPHORUSon 01-23-2024 Phosphate [Mass/Vol] 2.7 mg/dL Normal 2.5-4.5 [facility] Comment on above: Performed By: #### L AB113, [id number], LAB20, LAB15 ####Medical Transcriptionist: COURTNEY BENNETT ([id number])[address] Phosphate [Mass/Vol] 4.1 mg/dL Normal 2.5-4.5 [facility] Comment on above: Performed By: #### L AB113, LAB15, [id number] ####Medical Transcriptionist: COURTNEY BENNETT ([id number])[facility] ([facility])[address] [place] [address] PROTIME AND APTTon aPTT Coag (Bld) [Time] 32.5 s High 20.0-30.5 [facility] Comment on above: Performed By: #### L [id number], [id number] ####Medical Transcriptionist: COURTNEY BENNETT ([id number])[facility] ([facility])[address] [place] [address] INR Coag (PPP) [Relative time] 1.6 {INR} High 0.9-1.1 [facility] Comment on above: Result Comment: Elliott mmended Anticoagulant Therapy: SEE BELOW----- INR of 2.0 - 3.0 : - Prophylaxis of Venous Thrombosis (high-risk surgery) - Treatment of Venous Thrombosis - Treatment of Pulmonary Embolism (Includes tissue heart valves, Acute Myocardial Infarction to prevent systemic embolism, Valvular Heart Disease, and Atrial Fibrillation)----- INR of 2.5 - 3.5 : - Mechanical Prosthetic Valves (high risk) - If oral anticoagulant therapy is used to prevent Myocardial Infarction Performed By: #### Jamison [id number], [id number] ####Medical Transcriptionist: COURTNEY BENNETT ([id number])[facility] ([facility])[address] [place] [address] PT Coag (PPP) [Time] 16.8 s High 9.0-12.0 [facility] Comment on above: Performed By: #### Jamison [id number], [id number] ####Medical Transcriptionist: COURTNEY BENNETT ([id number])[facility] ([facility])[address] [place] [address] Phosphate [Moles/Vol]on 12-27 Interpretation and review of laboratory results Normal [facility] Phosphate [Mass/Vol] 2.7 mg/dL 2.5 - 4 .5 mg/dL [facility] Phosphate [Mass/Vol] 4.1 mg/dL 2.5 - 4 .5 mg/dL [facility] Progress Noteon 01-23-2024 Progress Note Update: Pt tolerated SBT, extubated, no resp distress, no stridor. Ongoing ICU care Normal [facility] Progress Note Normal [facility] Vital signsOrdered By: Jonnie Peacock on 01-23-2024 Heart rate 52 /min bpm [facility] [employer] Work Phone: XR CHEST 1 VIEWon 01-23-2024 XR CHEST 1 VIEW Normal [facility] XR Chest Single viewon 01-22 [facility] Radiology Study observation (narrative) [facility] XR Chest Single viewOrdered By: Chiara Baltazar on 01-23-2024 [facility] [employer] Web Phone: APTTon 01-22-2024 aPTT Coag (Bld) [Time] 54.4 s High 20.0-30.5 [facility] Comment on above: Result Comment: SHELDONE R COMMENTS:NOTE: The therapeutic time for Heparin anticoagulation, based on Xa activity inhibition, is an APTT of 46-80 seconds. Performed By: #### L [id number] ####Medical Transcriptionist: COURTNEY BENNETT ([id number])[address] aPTT Coag (Bld) [Time] 58.0 s High 20.0-30.5 [facility] Comment on above: Result Comment: SUNNI R COMMENTS:NOTE: The therapeutic time for Heparin anticoagulation, based on Xa activity inhibition, is an APTT of 46-80 seconds. Performed By: #### L [id number] ####Medical Transcriptionist: COURTNEY BENNETT ([id number])[address] aPTT Coag (Bld) [Time] 74.6 s High 20.0-30.5 [facility] Comment on above: Result Comment: ORDE R COMMENTS:NOTE: The therapeutic time for Heparin anticoagulation, based on Xa activity inhibition, is an APTT of 46-80 seconds. Performed By: #### L [id number] ####Medical Transcriptionist: COURTNEY BENNETT ([id number])[facility] ([facility])[address] [place] [address] [place] BASIC METABOLIC PANELon 08-2 Anion gap [Moles/Vol] 6 mmol/L Normal 3-13 [facility] Comment on above: Performed By: #### L AB15, [id number], [id number] ####Medical Transcriptionist: COURTNEY BENNETT ([id number])[facility] ([facility])[address] [place] [address] Calcium [Mass/Vol] 8.5 mg/dL Normal 8.4-10.4 [facility] Comment on above: Performed By: #### L AB15, [id number], [id number] ####Medical Transcriptionist: COURTNEY BENNETT ([phone])[facility] ([facility])[address] [place] [address] Chloride [Moles/Vol] 110 mmol/L High 98-107 [facility] Comment on above: Performed By: #### L AB15, [id number], [id number] ####Medical Transcriptionist: COURTNEY BENNETT ([id number])[facility] ([facility])[address] [place] [address] CO2 [Moles/Vol] 20 mmol/L Low 22-30 [facility] Comment on above: Performed By: #### L AB15, [id number], [id number] ####Medical Transcriptionist: COURTNEY BENNETT ([id number])[facility] ([facility])[address] [place] [address] Creatinine [Mass/Vol] 1.90 mg/dL High 0.66-1.25 [facility] Comment on above: Performed By: #### L AB15, [id number], [id number] ####Medical Transcriptionist: COURTNEY BENNETT ([id number])[facility] ([facility])[address] [place] [address] [place] GLOMERULAR FILTRATION RATE ML/MIN/1.73 SQ M.PREDICTED 36.1 mL/min/1.73m*2 Low >60.0 [facility] Comment on above: Result Comment: Calc ulation based on the Chronic Kidney Disease Epidemiology Collaboration (CKD-EPI) equation refit without adjustment for race Performed By: #### L AB15, [id number], [id number] ####Medical Transcriptionist: COURTNEY BENNETT ([id number])[facility] ([facility])[address] [place] [address] Glucose [Mass/Vol] 97 mg/dL Normal 70-100 [facility] Comment on above: Performed By: #### L AB15, [id number], [id number] ####Medical Transcriptionist: COURTNEY BENNETT ([id number])[facility] ([facility])[address] [place] [address] Potassium [Moles/Vol] 4.3 mmol/L Normal 3.5-5.1 [facility] Comment on above: Performed By: #### L AB15, [id number], JVP026 ####Medical Transcriptionist: COURTNEY BENNETT ([phone])[facility] ([facility])[address] [place] [address] Sodium [Moles/Vol] 135 mmol/L Normal 135-145 [facility] Comment on above: Performed By: #### L AB15, [id number], [id number] ####Medical Transcriptionist: COURTNEY BENNETT ([id number])[facility])[address] [place] [address] Urea nitrogen [Mass/Vol] 22 mg/dL High 9-20 [facility] Comment on above: Performed By: #### L AB15, [id number], [id number] ####Medical Transcriptionist: COURTNEY BENNETT ([id number])[facility] ([facility])[address] [place] [address] Basic metabolic 1998 panelon 01-22-2024 Anion gap [Moles/Vol] 6 mmol/L 3 - 13 mmol/L [facility] Calcium [Mass/Vol] 8.5 mg/dL 8.4 - 10. 4 mg/dL [facility] Chloride [Moles/Vol] 110 mmol/L High 98 - 10 7 mmol/L [facility] CO2 [Moles/Vol] 20 mmol/L Low 22 - 30 mmol/L [facility] Creatinine [Mass/Vol] 1.90 mg/dL High 0.66 - 1.25 mg/dL [facility] GFR/1.73 sq M.predicted (S/P/Bld) [Vol rate/Area] 36.1 mL/min Low - PINF [facility] Glucose [Mass/Vol] 97 mg/dL 70 - 100 mg/dL [facility] Interpretation and review of laboratory results Abnormal [facility] Potassium [Moles/Vol] 4.3 mmol/L 3.5 - 5.1 mmol/L [facility] Sodium [Moles/Vol] 135 mmol/L 135 - 145 mmol/L [facility] Urea nitrogen [Mass/Vol] 22 mg/dL High 9 - 20 mg/dL [facility] CALCIUM, IONIZEDon CALCIUM IONIZED 4.50 mg/dL Normal 4.30-5.20 [facility] Comment on above: Performed By: #### L [id number] ####Medical Transcriptionist: COURTNEY BENNETT ([id number])[facility])[address] [place] [address] PH, IONIZED CALCIUM 7.41 Normal 7.31-7.46 [facility] Comment on above: Performed By: #### L AB54 ####Medical Transcriptionist: COURTNEY BENNETT ([id number])[facility] ([facility])[address] [place] [address] CARECOORDon 01-22-2024 CARECOORD Normal [facility] CBC W Auto Differential pane l (Bld)on 01-22-2024 Basophils (Bld) [#/Vol] 0.1 10*3/uL 0.0 - 0.2 10*3/uL [facility] Basophils/100 WBC (Bld) 0.7 % 0.0 - 2.0 % [facility] Eosinophils (Bld) [#/Vol] 0.2 10*3/uL 0.0 - 0.5 10*3/uL [facility] Eosinophils/100 WBC (Bld) 2.8 % 0.0 - 6.0 % [facility] Erythrocyte distribution width (RBC) [Ratio] 13.7 % 11.5 - 15.0 % [facility] Hematocrit (Bld) [Volume fraction] 39.8 % Low 40.0 - 52.0 % [facility] Hemoglobin (Bld) [Mass/Vol] 13.0 g/dL 13.0 - 18.0 g/dL [facility] Immature granulocytes (Bld) [#/Vol] 0.0 10*3/uL NINF - 0.1 10*3/uL [facility] Immature granulocytes/100 WBC (Bld) 0.1 % 0.0 - 2.0 % [facility] Interpretation and review of laboratory results Abnormal [facility] Lymphocytes (Bld) [#/Vol] 3.2 10*3/uL 1.0 - 4.3 10*3/uL [facility] Lymphocytes/100 WBC (Bld) 47.1 % High 15.0 - 45.0 % [facility] MCH (RBC) [Entitic mass] 27.8 pg 26.0 - 34.0 pg [facility] MCHC (RBC) [Mass/Vol] 32.7 % 30.5 - 36.0 % [facility] MCV (RBC) [Entitic vol] 85.0 fL 77.0 - 99.0 fL [facility] Monocytes (Bld) [#/Vol] 0.5 10*3/uL 0.0 - 0.9 10*3/uL [facility] Monocytes/100 WBC (Bld) 7.1 % 5.0 - 13.0 % [facility] Neutrophils (Bld) [#/Vol] 2.9 10*3/uL 1.8 - 7.5 10*3/uL [facility] Neutrophils/100 WBC (Bld) 42.2 % 38.0 - 82.0 % [facility] Nucleated RBC/100 WBC (Bld) [Ratio] 0.0 % [facility] Platelet mean volume (Bld) [Entitic vol] 11.5 fL 9.0 - 12.7 fL [facility] Platelets (Bld) [#/Vol] 144 10*3/uL 140 - 440 10*3/uL [facility] RBC (Bld) [#/Vol] 4.68 10*6/uL 4.40 - 5.9 0 10*6/uL [facility] WBC (Bld) [#/Vol] 6.9 10*3/uL 3.6 - 10.7 10*3/uL [facility] CBC WITH AUTO DIFFERENTIALon 01-22-2024 Basophils (Bld) [#/Vol] 0.1 10*3/uL Normal 0.0-0.2 [facility] Comment on above: Performed By: #### L [id number] ####Medical Transcriptionist: COURTNEY BENNETT ([id number])[facility])[address] [place] [address] Basophils/100 WBC (Bld) 0.7 % Normal 0.0-2.0 [facility] Comment on above: Performed By: #### L [id number] ####Medical Transcriptionist: COURTNEY BENNETT ([id number])[facility])[address] [place] [address] Eosinophils (Bld) [#/Vol] 0.2 10*3/uL Normal 0.0-0.5 [facility] Comment on above: Performed By: #### L [id number] ####Medical Transcriptionist: COURTNEY BENNETT ([phone])[facility])[address] [place] [address] Eosinophils/100 WBC (Bld) 2.8 % Normal 0.0-6.0 [facility] Comment on above: Performed By: #### L [id number] ####Medical Transcriptionist: COURTNEY BENNETT ([id number])[facility])[address] [place] [address] Erythrocyte distribution width (RBC) [Ratio] 13.7 % Normal 11.5-15.0 [facility] Comment on above: Performed By: #### L [id number] ####Medical Transcriptionist: COURTNEY BENNETT ([id number])[facility])[address] [place] [address] Hematocrit (Bld) [Volume fraction] 39.8 % Low 40.0-52.0 [facility] Comment on above: Performed By: #### L [id number] ####Medical Transcriptionist: COURTNEY BENNETT ([id number])[facility])[address] [place] [address] Hemoglobin (Bld) [Mass/Vol] 13.0 g/dL Normal 13.0-18.0 [facility] Comment on above: Performed By: #### L [id number] ####Medical Transcriptionist: COURTNEY BENNETT ([id number])[facility] ([facility])[address] [place] [address] IMMATURE GRANS % 0.1 % Normal 0.0-2.0 [facility] Comment on above: Performed By: #### L [id number] ####Medical Transcriptionist: COURTNEY BENNETT ([id number])[facility])[address] [place] [address] IMMATURE GRANS ABSOLUTE 0.0 10*3/uL Normal <0.1 [facility] Comment on above: Performed By: #### L [id number] ####Medical Transcriptionist: COURTNEY BENNETT ([id number])[facility])[address] [place] [address] Lymphocytes (Bld) [#/Vol] 3.2 10*3/uL Normal 1.0-4.3 [facility] Comment on above: Performed By: #### L [id number] ####Medical Transcriptionist: COURTNEY BENNETT ([id number])[facility])[address] [place] [address] Lymphocytes/100 WBC (Bld) 47.1 % High 15.0-45.0 [facility] Comment on above: Performed By: #### L [id number] ####Medical Transcriptionist: COURTNEY BENNETT ([phone])[facility])[address] [place] [address] MCH (RBC) [Entitic mass] 27.8 pg Normal 26.0-34.0 [facility] Comment on above: Performed By: #### L [id number] ####Medical Transcriptionist: COURTNEY BENNETT ([id number])[facility])[address] [place] [address] MCHC 32.7 % Normal 30.5-36.0 [facility] Comment on above: Performed By: #### L [id number] ####Medical Transcriptionist: COURTNEY BENNETT ([id number])[facility])[address] [place] [address] MCV (RBC) [Entitic vol] 85.0 fL Normal 77.0-99.0 [facility] Comment on above: Performed By: #### L [id number] ####Medical Transcriptionist: COURTNEY BENNETT ([id number])[facility])[address] [place] [address] Monocytes (Bld) [#/Vol] 0.5 10*3/uL Normal 0.0-0.9 [facility] Comment on above: Performed By: #### L [id number] ####Medical Transcriptionist: COURTNEY BENNETT ([id number])[facility] ([facility])[address] [place] [address] Monocytes/100 WBC (Bld) 7.1 % Normal 5.0-13.0 [facility] Comment on above: Performed By: #### L [id number] ####Medical Transcriptionist: COURTNEY BENNETT ([phone])[facility])[address] [place] [address] NEUTROPHILS ABSOLUTE 2.9 10*3/uL Normal 1.8-7.[address] [facility] Comment on above: Performed By: #### L [id number] ####Medical Transcriptionist: COURTNEY BENNETT ([id number])[facility] ([facility])[address] [place] [address] Neutrophils/100 WBC (Bld) 42.2 % Normal 38.0-82.0 [facility] Comment on above: Performed By: #### L [id number] ####Medical Transcriptionist: COURTNEY BENNETT ([id number])[facility] ([facility])[address] [place] [address] NRBC 0.0 /100 WBCs Normal 0.0-2.0 [facility] Comment on above: Performed By: #### L [id number] ####Medical Transcriptionist: COURTNEY BENNETT ([phone])[facility])[address] [place] [address] Platelet mean volume (Bld) [Entitic vol] 11.5 fL Normal 9.0-12.7 [facility] Comment on above: Performed By: #### L [id number] ####Medical Transcriptionist: COURTNEY BENNETT ([id number])[facility] ([facility])[address] [place] [address] Platelets (Bld) [#/Vol] 144 10*3/uL Normal 140-440 [facility] Comment on above: Performed By: #### L [id number] ####Medical Transcriptionist: COURTNEY BENNETT ([id number])[facility] ([facility])[address] [place] [address] RBC (Bld) [#/Vol] 4.68 10*6/uL Normal 4.40-5.90 [facility] Comment on above: Performed By: #### L [id number] ####Medical Transcriptionist: COURTNEY BENNETT ([id number])[facility] ([facility])[address] [place] [address] WBC (Bld) [#/Vol] 6.9 10*3/uL Normal 3.6-10.7 [facility] Comment on above: Performed By: #### L [id number] ####Medical Transcriptionist: COURTNEY BENNETT ([id number])[facility] ([facility])[address] [place] [address] Calcium.ionized [Moles/Vol]o n 01-22-2024 Calcium.ionized (Bld) [Moles/Vol] 4.50 mg/dL 4.30 - 5.20 mg/dL [facility] Interpretation and review of laboratory results Normal [facility] PH, IONIZED CALCIUM 7.41 7.31 - 7.46 [facility] ECG 12-LEADon 01-22-2024 ECG 12-LEAD IMPRESSION: Sinus bradycardia Electronically Signed On 01-22-2024 07:33:01 EDT by Jairo Macias [facility] Laboratory - Chemistry and C hemistry - challengeon 01-22-2024 Magnesium [Mass/Vol] 2.1 mg/dL 1.6 - 2 .3 mg/dL [facility] MAGNESIUMon 01-22-2024 Magnesium [Mass/Vol] 2.1 mg/dL Normal 1.6-2.3 [facility] Comment on above: Performed By: #### L AB15, [id number], [id number] ####Medical Transcriptionist: COURTNEY BENNETT ([id number])[facility] ([facility])[address] [place] [address] No Panel InformationOrdered By: Jairo Macias on 01-22-2024 P [place] 44 degrees [facility] Work Phone: HI Interval 164 ms [facility] Work Phone: QRS [place] 7 degrees [facility] Work Phone: QRSD Interval 87 ms [facility] Work Phone: QT Interval 459 ms [facility] Work Phone: QTC Interval 438 ms [facility] Work Phone: T Wave [place] 59 degrees [facility] Work Phone: [facility] Work Phone: No Panel Informationon 01-21 CV EPIPHANY [facility] Interpretation and review of laboratory results Normal [facility] PHOSPHORUSon 01-22-2024 Phosphate [Mass/Vol] 3.7 mg/dL Normal 2.5-4.5 [facility] Comment on above: Performed By: #### L AB15, [id number], [id number] ####Medical Transcriptionist: COURTNEY BENNETT ([id number])[facility] ([facility])[address] [place] [address] Phosphate [Moles/Vol]on 12-27 Phosphate [Mass/Vol] 3.7 mg/dL 2.5 - 4 .5 mg/dL [facility] Progress Noteon 01-22-2024 Progress Note Normal [facility] Progress Note Normal [facility] Vital signsOrdered By: Ruby Macias on 01-22-2024 Heart rate 55 /min bpm [facility] Work Phone: aPTT Coag (Bld) [Time]on aPTT Coag (PPP) [Time] 54.4 s High 20.0 - 30.5 s [facility] Interpretation and review of laboratory results Abnormal [facility] aPTT Coag (PPP) [Time] 58.0 s High 20.0 - 30.5 s [facility] Interpretation and review of laboratory results Abnormal [facility] aPTT Coag (PPP) [Time] 74.6 s High 20.0 - 30.5 s [facility] Interpretation and review of laboratory results Abnormal [facility] APTTon 01-21-2024 aPTT Coag (Bld) [Time] 55.7 s High 20.0-30.5 [facility] Comment on above: Result Comment: SUNNI Sidhu COMMENTS:NOTE: The therapeutic time for Heparin anticoagulation, based on Xa activity inhibition, is an APTT of 46-80 seconds. Performed By: #### L [id number] ####Medical Transcriptionist: COURTNEY [id number])[address] aPTT Coag (Bld) [Time] 29.4 s Normal 20.0-30.5 [facility] Comment on above: Result Comment: SUNNI Sidhu COMMENTS:NOTE: The therapeutic time for Heparin anticoagulation, based on Xa activity inhibition, is an APTT of 46-80 seconds. Performed By: #### L [id number] ####Medical Transcriptionist: COURTNEY [id number])[address] aPTT Coag (Bld) [Time] 66.0 s High 20.0-30.5 [facility] Comment on above: Result Comment: SUNNI Sidhu COMMENTS:NOTE: The therapeutic time for Heparin anticoagulation, based on Xa activity inhibition, is an APTT of 46-80 seconds. Performed By: #### L [id number] ####Medical Transcriptionist: COURTNEY [id number])[address] BASIC METABOLIC PANELon 12-27 Anion gap [Moles/Vol] 5 mmol/L Normal 3-13 [facility] Comment on above: Performed By: #### L AB15, [id number], [id number] ####Medical Transcriptionist: COURTNEY [id number])[facility] ([facility])[address] [place] [address] [place] Calcium [Mass/Vol] 8.2 mg/dL Low 8.4-10.4 [facility] Comment on above: Performed By: #### L AB15, [id number], [id number] ####Medical Transcriptionist: COURTNEY BENNETT ([id number])[facility] ([facility])[address] [place] [address] [place] Chloride [Moles/Vol] 109 mmol/L High 98-107 [facility] Comment on above: Performed By: #### L AB15, [id number], [id number] ####Medical Transcriptionist: COURTNEY BENNETT ([id number])[facility] ([facility])[address] [place] [address] CO2 [Moles/Vol] 20 mmol/L Low 22-30 [facility] Comment on above: Performed By: #### L AB15, [id number], [id number] ####Medical Transcriptionist: COURTNEY BENNETT ([id number])[facility])[address] [place] [address] Creatinine [Mass/Vol] 1.84 mg/dL High 0.66-1.[address] [facility] Comment on above: Performed By: #### L AB15, [id number], [id number] ####Medical Transcriptionist: COURTNEY BENNETT ([id number])[facility] ([facility])[address] [place] [address] [place] GLOMERULAR FILTRATION RATE ML/MIN/1.73 SQ M.PREDICTED 37.5 mL/min/1.73m*2 Low >60.0 [facility] Comment on above: Result Comment: Calc ulation based on the Chronic Kidney Disease Epidemiology Collaboration (CKD-EPI) equation refit without adjustment for race Performed By: #### L AB15, [id number], [id number] ####Medical Transcriptionist: COURTNEY BENNETT ([id number])[facility] ([facility])[address] [place] [address] [place] Glucose [Mass/Vol] 122 mg/dL High 70-100 [facility] Comment on above: Performed By: #### L AB15, [id number], [id number] ####Medical Transcriptionist: COURTNEY BENNETT ([id number])[facility])[address] [place] [address] Potassium [Moles/Vol] 4.5 mmol/L Normal 3.5-5.[address] [facility] Comment on above: Performed By: #### L AB15, [id number], [id number] ####Medical Transcriptionist: COURTNEY BENNETT ([id number])[facility])[address] [place] [address] Sodium [Moles/Vol] 134 mmol/L Low 135-145 [facility] Comment on above: Performed By: #### L AB15, [id number], [id number] ####Medical Transcriptionist: COURTNEY BENNETT ([id number])[facility])[address] [place] [address] Urea nitrogen [Mass/Vol] 24 mg/dL High 9-20 [facility] Comment on above: Performed By: #### L AB15, [id number], [id number] ####Medical Transcriptionist: COURTNEY BENNETT ([id number])[facility])[address] [place] [address] Basic metabolic 1998 panelon 01-21-2024 Anion gap [Moles/Vol] 5 mmol/L 3 - 13 mmol/L [facility] Calcium [Mass/Vol] 8.2 mg/dL Low 8.4 - 10. 4 mg/dL [facility] Chloride [Moles/Vol] 109 mmol/L High 98 - 10 7 mmol/L [facility] CO2 [Moles/Vol] 20 mmol/L Low 22 - 30 mmol/L [facility] Creatinine [Mass/Vol] 1.84 mg/dL High 0.66 - 1.25 mg/dL [facility] GFR/1.73 sq M.predicted (S/P/Bld) [Vol rate/Area] 37.5 mL/min Low - PINF [facility] Glucose [Mass/Vol] 122 mg/dL High 70 - 100 mg/dL [facility] Interpretation and review of laboratory results Abnormal [facility] Potassium [Moles/Vol] 4.5 mmol/L 3.5 - 5.1 mmol/L [facility] Sodium [Moles/Vol] 134 mmol/L Low 135 - 145 mmol/L [facility] Urea nitrogen [Mass/Vol] 24 mg/dL High 9 - 20 mg/dL [facility] CALCIUM, IONIZEDon CALCIUM IONIZED 4.40 mg/dL Normal 4.30-5.20 [facility] Comment on above: Performed By: #### L [id number] ####Medical Transcriptionist: COURTNEY BENNETT ([id number])[facility] ([facility])[address] [place] [address] PH, IONIZED CALCIUM 7.40 Normal 7.31-7.46 [facility] Comment on above: Performed By: #### L AB54 ####Medical Transcriptionist: COURTNEY BENNETT ([id number])[facility])[address] [place] [address] CARECOORDon 01-21-2024 CARECOHAMDEN Patient has been with [facility]. [facility], forwarded consult to [facility]. Normal [facility] CARECOORD Normal [facility] CBC W Auto Differential pane l (Bld)on 01-21-2024 Basophils (Bld) [#/Vol] 0.0 10*3/uL 0.0 - 0.2 10*3/uL [facility] Basophils/100 WBC (Bld) 0.5 % 0.0 - 2.0 % [facility] Eosinophils (Bld) [#/Vol] 0.2 10*3/uL 0.0 - 0.5 10*3/uL [facility] Eosinophils/100 WBC (Bld) 2.5 % 0.0 - 6.0 % [facility] Hematocrit (Bld) [Volume fraction] 40.6 % 40.0 - 52.0 % [facility] Hemoglobin (Bld) [Mass/Vol] 13.4 g/dL 13.0 - 18.0 g/dL [facility] Lymphocytes (Bld) [#/Vol] 3.0 10*3/uL 1.0 - 4.3 10*3/uL [facility] Lymphocytes/100 WBC (Bld) 41.3 % 15.0 - 45.0 % [facility] MCH (RBC) [Entitic mass] 27.6 pg 26.0 - 34.0 pg [facility] MCV (RBC) [Entitic vol] 83.7 fL 77.0 - 99.0 fL [facility] RBC (Bld) [#/Vol] 4.85 10*6/uL 4.40 - 5.9 0 10*6/uL [facility] CBC WITH AUTO DIFFERENTIALon 01-21-2024 Basophils (Bld) [#/Vol] 0.0 10*3/uL Normal 0.0-0.2 [facility] Comment on above: Performed By: #### L [id number] ####Medical Transcriptionist: COURTNEY BENNETT ([phone])[facility])[address] [place] [address] Basophils/100 WBC (Bld) 0.5 % Normal 0.0-2.0 [facility] Comment on above: Performed By: #### L [id number] ####Medical Transcriptionist: COURTNEY BENNETT ([phone])[facility] ([facility])[address] [place] [address] Eosinophils (Bld) [#/Vol] 0.2 10*3/uL Normal 0.0-0.5 [facility] Comment on above: Performed By: #### L [id number] ####Medical Transcriptionist: COURTNEY BENNETT ([id number])[facility])[address] [place] [address] Eosinophils/100 WBC (Bld) 2.5 % Normal 0.0-6.0 [facility] Comment on above: Performed By: #### L [id number] ####Medical Transcriptionist: COURTNEY BENNETT ([phone])[facility])[address] [place] [address] Erythrocyte distribution width (RBC) [Ratio] 13.3 % Normal 11.5-15.0 [facility] Comment on above: Performed By: #### L [id number] ####Medical Transcriptionist: COURTNEY BENNETT ([id number])[facility])[address] [place] [address] Hematocrit (Bld) [Volume fraction] 40.6 % Normal 40.0-52.0 [facility] Comment on above: Performed By: #### L [id number] ####Medical Transcriptionist: COURTNEY BENNETT ([id number])[facility])[address] [place] [address] Hemoglobin (Bld) [Mass/Vol] 13.4 g/dL Normal 13.0-18.0 [facility] Comment on above: Performed By: #### L [id number] ####Medical Transcriptionist: COURTNEY BENNETT ([id number])[facility])[address] [place] [address] IMMATURE GRANS % 0.3 % Normal 0.0-2.0 [facility] Comment on above: Performed By: #### L [id number] ####Medical Transcriptionist: COURTNEY BENNETT ([id number])[facility])[address] [place] [address] IMMATURE GRANS ABSOLUTE 0.0 10*3/uL Normal <0.1 [facility] Comment on above: Performed By: #### L [id number] ####Medical Transcriptionist: COURTNEY BENNETT ([id number])[facility])[address] [place] [address] Lymphocytes (Bld) [#/Vol] 3.0 10*3/uL Normal 1.0-4.3 [facility] Comment on above: Performed By: #### L [id number] ####Medical Transcriptionist: COURTNEY BENNETT ([id number])[facility])[address] [place] [address] Lymphocytes/100 WBC (Bld) 41.3 % Normal 15.0-45.0 [facility] Comment on above: Performed By: #### L [id number] ####Medical Transcriptionist: COURTNEY BENNETT ([id number])[facility])[address] [place] [address] MCH (RBC) [Entitic mass] 27.6 pg Normal 26.0-34.0 [facility] Comment on above: Performed By: #### L [id number] ####Medical Transcriptionist: COURTNEY BENNETT ([phone])[facility] ([facility])[address] [place] [address] MCHC 33.0 % Normal 30.5-36.0 [facility] Comment on above: Performed By: #### L [id number] ####Medical Transcriptionist: COURTNEY BENNETT ([id number])[facility] ([facility])[address] [place] [address] MCV (RBC) [Entitic vol] 83.7 fL Normal 77.0-99.0 [facility] Comment on above: Performed By: #### L [id number] ####Medical Transcriptionist: COURTNEY BENNETT ([id number])[facility])[address] [place] [address] Monocytes (Bld) [#/Vol] 0.5 10*3/uL Normal 0.0-0.9 [facility] Comment on above: Performed By: #### L [id number] ####Medical Transcriptionist: COURTNEY BENNETT ([id number])[facility] ([facility])[address] [place] [address] Monocytes/100 WBC (Bld) 6.7 % Normal 5.0-13.0 [facility] Comment on above: Performed By: #### L [id number] ####Medical Transcriptionist: COURTNEY BENNETT ([id number])[facility] ([facility])[address] [place] [address] NEUTROPHILS ABSOLUTE 3.5 10*3/uL Normal 1.8-7.[address] [facility] Comment on above: Performed By: #### L [id number] ####Medical Transcriptionist: COURTNEY BENNETT ([id number])[facility])[address] [place] [address] Neutrophils/100 WBC (Bld) 48.7 % Normal 38.0-82.0 [facility] Comment on above: Performed By: #### L [id number] ####Medical Transcriptionist: COURTNEY BENNETT ([id number])[facility] ([facility])[address] [place] [address] NRBC 0.0 /100 WBCs Normal 0.0-2.0 [facility] Comment on above: Performed By: #### L [id number] ####Medical Transcriptionist: COURTNEY BENNETT ([id number])[facility] ([facility])[address] [place] [address] Platelet mean volume (Bld) [Entitic vol] 11.3 fL Normal 9.0-12.7 [facility] Comment on above: Performed By: #### L [id number] ####Medical Transcriptionist: COURTNEY BENNETT ([id number])[facility] ([facility])[address] [place] [address] Platelets (Bld) [#/Vol] 146 10*3/uL Normal 140-440 [facility] Comment on above: Performed By: #### L [id number] ####Medical Transcriptionist: COURTNEY BENNETT ([id number])[facility] ([facility])[address] [place] [address] RBC (Bld) [#/Vol] 4.85 10*6/uL Normal 4.40-5.90 [facility] Comment on above: Performed By: #### L [id number] ####Medical Transcriptionist: COURTNEY BENNETT ([id number])[facility] ([facility])[address] [place] [address] WBC (Bld) [#/Vol] 7.3 10*3/uL Normal 3.6-10.7 [facility] Comment on above: Performed By: #### L [id number] ####Medical Transcriptionist: COURTNEY BENNETT ([phone])[facility] ([facility])[address] [place] [address] Consulton 01-21-2024 Consult Normal [facility] Consult Normal [facility] ECG 12-LEADon 01-21-2024 ECG 12-LEAD IMPRESSION: Sinus bradycardia LVH by voltage Nonspecific T abnormalities, inferior leads Electronically Signed On 01-21-2024 19:51:06 EDT by Per Tom Normal [facility] ECG 12-LEAD IMPRESSION: Sinus bradycardia Electronically Signed On 01-21-2024 17:18:26 EDT by Per Tom Normal [facility] Laboratory - Chemistry and C hemistry - challengeon 01-21-2024 Magnesium [Mass/Vol] 1.8 mg/dL 1.6 - 2 .3 mg/dL [facility] MAGNESIUMon 01-21-2024 Magnesium [Mass/Vol] 1.8 mg/dL Normal 1.6-2.3 [facility] Comment on above: Performed By: #### L AB15, [id number], [id number] ####Medical Transcriptionist: COURTNEY BENNETT ([id number])[facility] ([facility] No Panel InformationOrdered By: Per Tom on 01-21-2024 P [place] 31 degrees [facility] Work Phone: HI Interval 152 ms [facility] Work Phone: QRS [place] -6 degrees [facility] Work Phone: QRSD Interval 82 ms [facility] Work Phone: QT Interval 453 ms [facility] Work Phone: QTC Interval 450 ms [facility] Work Phone: T Wave [place] -17 degrees [facility] Work Phone: [facility] Work Phone: No Panel Informationon 01-20 CV EPIPHANY [facility] P [place] 34 degrees [facility] HI Interval 174 ms [facility] QRS [place] 0 degrees [facility] QRSD Interval 84 ms [facility] QT Inter[facility] 448 ms [facility] QTC Interval 434 ms [facility] [employer] T Wave [place] 52 degrees [facility] [employer] CV EPIPHANY [facility] Interpretation and review of laboratory results Abnormal [facility] [employer] POCT ACT 151 High [facility] Interpretation and review of laboratory results Normal [facility] Nursing Noteon 01-21-2024 Nursing Note Wound Care consulted for Pressure Injury Prevention. Pt's Sheng= 20, pt is no longer at risk. Skin Care Precaution order set in place. Will continue to follow peripherally. Please voicera or secure chat message with any questions. Ashlie Ruiz RN Normal [facility] PHOSPHORUSon 01-21-2024 Phosphate [Mass/Vol] 3.6 mg/dL Normal 2.5-4.5 [facility] Comment on above: Performed By: #### L AB15, [id number], [id number] ####Medical Transcriptionist: COURTNEY BENNETT ([id number])[facility] ([facility])[address] [place] [address] [place] Phosphate [Moles/Vol]on 12-27 Phosphate [Mass/Vol] 3.6 mg/dL 2.5 - 4 .5 mg/dL [facility] Progress Noteon 01-21-2024 Progress Note Normal [facility] Vital signsOrdered By: Per Tom on 01-21-2024 Heart rate 59 /min bpm [facility] Work Phone: Vital signson 01-21-2024 Heart rate 56 /min bpm [facility] aPTT Coag (Bld) [Time]on aPTT Coag (PPP) [Time] 55.7 s High 20.0 - 30.5 s [facility] Interpretation and review of laboratory results Abnormal [facility] aPTT Coag (PPP) [Time] 29.4 s 20.0 - 30.5 s [facility] Interpretation and review of laboratory results Normal [facility] aPTT Coag (PPP) [Time] 66.0 s High 20.0 - 30.5 s [facility] Interpretation and review of laboratory results Abnormal [facility] APTTon 01-20-2024 aPTT Coag (Bld) [Time] 62.0 s High 20.0-30.5 [facility] Comment on above: Result Comment: SUNNI Sidhu COMMENTS:NOTE: The therapeutic time for Heparin anticoagulation, based on Xa activity inhibition, is an APTT of 46-80 seconds. Performed By: #### L [id number] ####Medical Transcriptionist: COURTNEY BENNETT ([phone])[facility] ([facility])[address] [place] [address] aPTT Coag (Bld) [Time] 73.5 s High 20.0-30.5 [facility] Comment on above: Result Comment: SUNNI Sidhu COMMENTS:NOTE: The therapeutic time for Heparin anticoagulation, based on Xa activity inhibition, is an APTT of 46-80 seconds. Performed By: #### L AB325 ####Medical Transcriptionist: COURTNEY BENNETT ([id number])[facility] ([facility])[address] [place] [address] BASIC METABOLIC PANELon 08-2 Anion gap [Moles/Vol] 4 mmol/L Normal 3-13 [facility] Comment on above: Performed By: #### L AB103, [id number], LAB15 ####Medical Transcriptionist: COURTNEY BENNETT ([phone])[facility] ([facility])[address] [place] [address] Calcium [Mass/Vol] 8.1 mg/dL Low 8.4-10.4 [facility] Comment on above: Performed By: #### L AB103, [id number], LAB15 ####Medical Transcriptionist: COURTNEY BENNETT ([phone])[facility] ([facility])[address] [place] [address] Chloride [Moles/Vol] 109 mmol/L High 98-107 [facility] Comment on above: Performed By: #### L AB103, [id number], LAB15 ####Medical Transcriptionist: COURTNEY BENNETT ([id number])[facility] ([facility])[address] [place] [address] CO2 [Moles/Vol] 23 mmol/L Normal 22-30 [facility] Comment on above: Performed By: #### L AB103, [id number], LAB15 ####Medical Transcriptionist: COURTNEY BENNETT ([phone])[facility] ([facility])[address] [place] [address] Creatinine [Mass/Vol] 1.89 mg/dL High 0.66-1.25 [facility] Comment on above: Performed By: #### L AB103, DQT211, LAB15 ####Medical Transcriptionist: COURTNEY BENNETT ([phone])[facility] [place] [address] GLOMERULAR FILTRATION RATE ML/MIN/1.73 SQ M.PREDICTED 36.3 mL/min/1.73m*2 Low >60.0 [facility] Comment on above: Result Comment: Calc ulation based on the Chronic Kidney Disease Epidemiology Collaboration (CKD-EPI) equation refit without adjustment for race Performed By: #### L AB103, [id number], LAB15 ####Medical Transcriptionist: COURTNEY BENNETT ([phone])[facility])[address] [place] [address] Glucose [Mass/Vol] 113 mg/dL High 70-100 [facility] Comment on above: Performed By: #### L AB103, [id number], LAB15 ####Medical Transcriptionist: COURTNEY BENNETT ([phone])[facility])[address] [place] [address] Potassium [Moles/Vol] 4.2 mmol/L Normal 3.5-5.1 [facility] Comment on above: Performed By: #### L AB103, [id number], LAB15 ####Medical Transcriptionist: COURTNEY BENNETT ([id number])[address] Sodium [Moles/Vol] 135 mmol/L Normal 135-145 [facility] Comment on above: Performed By: #### L AB103, [id number], LAB15 ####Medical Transcriptionist: COURTNEY BENNETT ([phone])[address] Urea nitrogen [Mass/Vol] 20 mg/dL Normal 9-20 [facility] Comment on above: Performed By: #### L AB103, [id number], LAB15 ####Medical Transcriptionist: COURTNEY BENNETT ([id number])[address] BLOOD TYPE AND SCREEN GELon 01-20-2024 ABO GROUPING B Normal [facility] Comment on above: Performed By: #### L AB276 ####Medical Transcriptionist: COURTNEY [id number])[facility] ([facility])[address] [place] [address] RH TYPE IN BLOOD Positive Normal [facility] Comment on above: Performed By: #### L AB276 ####Medical Transcriptionist: COURTNEY BENNETT ([id number])[facility] ([facility])[address] [place] [address] CALCIUM, IONIZEDon CALCIUM IONIZED 4.40 mg/dL Normal 4.30-5.20 [facility] Comment on above: Performed By: #### L AB54 ####Medical Transcriptionist: COURTNEY BENNETT ([id number])[facility] ([facility])[address] [place] [address] PH, IONIZED CALCIUM 7.37 Normal 7.31-7.46 [facility] Comment on above: Performed By: #### L AB54 ####Medical Transcriptionist: COURTNEY BENNETT ([phone])[facility] ([facility])[address] [place] [address] CARECOORDon 01-20-2024 CARECOORD Normal [facility] CBC WITH AUTO DIFFERENTIALon 01-20-2024 Basophils (Bld) [#/Vol] 0.0 10*3/uL Normal 0.0-0.2 [facility] Comment on above: Performed By: #### L [id number] ####Medical Transcriptionist: COURTNEY BENNETT ([phone])[facility] ([facility])[address] [place] [address] Basophils/100 WBC (Bld) 0.4 % Normal 0.0-2.0 [facility] Comment on above: Performed By: #### L [id number] ####Medical Transcriptionist: COURTNEY BENNETT ([phone])[facility])[address] [place] [address] Eosinophils (Bld) [#/Vol] 0.2 10*3/uL Normal 0.0-0.5 [facility] Comment on above: Performed By: #### L [id number] ####Medical Transcriptionist: COURTNEY [id number])[facility] ([facility])[address] [place] [address] Eosinophils/100 WBC (Bld) 2.2 % Normal 0.0-6.0 [facility] Comment on above: Performed By: #### L [id number] ####Medical Transcriptionist: COURTNEY BENNETT ([phone])[facility])[address] [place] [address] Erythrocyte distribution width (RBC) [Ratio] 13.3 % Normal 11.5-15.0 [facility] Comment on above: Performed By: #### L [id number] ####Medical Transcriptionist: COURTNEY BENNETT ([id number])[facility])[address] [place] [address] Hematocrit (Bld) [Volume fraction] 38.2 % Low 40.0-52.0 [facility] Comment on above: Performed By: #### L [id number] ####Medical Transcriptionist: COURTNEY BENNETT ([id number])[facility])[address] [place] [address] Hemoglobin (Bld) [Mass/Vol] 12.6 g/dL Low 13.0-18.0 [facility] Comment on above: Performed By: #### L [id number] ####Medical Transcriptionist: COURTNEY BENNETT ([id number])[facility])[address] [place] [address] IMMATURE GRANS % 0.3 % Normal 0.0-2.0 [facility] Comment on above: Performed By: #### L [id number] ####Medical Transcriptionist: COURTNEY BENNETT ([id number])[facility])[address] [place] [address] IMMATURE GRANS ABSOLUTE 0.0 10*3/uL Normal <0.1 [facility] Comment on above: Performed By: #### L [id number] ####Medical Transcriptionist: COURTNEY BENNETT ([id number])[facility])[address] [place] [address] [place] IPF 5 Normal [facility] Comment on above: Performed By: #### L [id number] ####Medical Transcriptionist: COURTNEY BENNETT ([phone])[facility])[address] [place] [address] Lymphocytes (Bld) [#/Vol] 3.4 10*3/uL Normal 1.0-4.3 [facility] Comment on above: Performed By: #### L [id number] ####Medical Transcriptionist: COURTNEY BENNETT ([id number])[facility])[address] [place] [address] Lymphocytes/100 WBC (Bld) 46.6 % High 15.0-45.0 [facility] Comment on above: Performed By: #### L [id number] ####Medical Transcriptionist: COURTNEY BENNETT ([id number])[facility])[address] [place] [address] MCH (RBC) [Entitic mass] 27.8 pg Normal 26.0-34.0 [facility] Comment on above: Performed By: #### L [id number] ####Medical Transcriptionist: COURTNEY BENNETT ([id number])[facility])[address] [place] [address] MCHC 33.0 % Normal 30.5-36.0 [facility] Comment on above: Performed By: #### L [id number] ####Medical Transcriptionist: COURTNEY BENNETT ([phone])[facility])[address] [place] [address] MCV (RBC) [Entitic vol] 84.3 fL Normal 77.0-99.0 [facility] Comment on above: Performed By: #### L [id number] ####Medical Transcriptionist: COURTNEY BENNETT ([phone])[facility])[address] [place] [address] Monocytes (Bld) [#/Vol] 0.6 10*3/uL Normal 0.0-0.9 [facility] Comment on above: Performed By: #### L [id number] ####Medical Transcriptionist: COURTNEY BENNETT ([id number])[facility] ([facility])[address] [place] [address] Monocytes/100 WBC (Bld) 7.7 % Normal 5.0-13.0 [facility] Comment on above: Performed By: #### L [id number] ####Medical Transcriptionist: COURTNEY BENNETT ([phone])[facility] ([facility])[address] [place] [address] NEUTROPHILS ABSOLUTE 3.1 10*3/uL Normal 1.8-7.[address] [facility] Comment on above: Performed By: #### L [id number] ####Medical Transcriptionist: COURTNEY BENNETT ([id number])[facility] ([facility])[address] [place] [address] Neutrophils/100 WBC (Bld) 42.8 % Normal 38.0-82.0 [facility] Comment on above: Performed By: #### L [id number] ####Medical Transcriptionist: COURTNEY BENNETT ([id number])[facility] ([facility])[address] [place] [address] NRBC 0.0 /100 WBCs Normal 0.0-2.0 [facility] Comment on above: Performed By: #### L [id number] ####Medical Transcriptionist: COURTNEY BENNETT ([phone])[facility] ([facility])[address] [place] [address] Platelet mean volume (Bld) [Entitic vol] 11.1 fL Normal 9.0-12.7 [facility] Comment on above: Performed By: #### L [id number] ####Medical Transcriptionist: COURTNEY BENNETT ([phone])[facility] ([facility])[address] [place] [address] [place] Platelets (Bld) [#/Vol] 130 10*3/uL Low 140-440 [facility] Comment on above: Performed By: #### L [id number] ####Medical Transcriptionist: COURTNEY BENNETT ([phone])[facility] ([facility])[address] [place] [address] [place] RBC (Bld) [#/Vol] 4.53 10*6/uL Normal 4.40-5.90 [facility] Comment on above: Performed By: #### L [id number] ####Medical Transcriptionist: COURTNEY BENNETT ([id number])[facility])[address] [place] [address] WBC (Bld) [#/Vol] 7.3 10*3/uL Normal 3.6-10.7 [facility] Comment on above: Performed By: #### L [id number] ####Medical Transcriptionist: COURTNEY BENNETT ([phone])[facility])[address] [place] [address] ECG 12-LEADon 01-20-2024 ECG 12-LEAD IMPRESSION: Sinus bradycardia LVH by voltage Abnormal T, consider ischemia, diffuse leads Electronically Signed On 01-20-2024 18:32:00 EDT by Melina emeli [facility] ECG 12-LEAD IMPRESSION: Sinus bradycardia Electronically Signed On 01-20-2024 18:31:49 EDT by Melina [facility] IDNon 01-20-2024 IDN Normal [facility] MAGNESIUMon 01-20-2024 Magnesium [Mass/Vol] 1.9 mg/dL Normal 1.6-2.3 [facility] Comment on above: Performed By: #### L AB103, [id number], LAB15 ####Medical Transcriptionist: COURTNEY BENNETT ([phone])[facility])[address] [place] [address] Nursing Noteon 01-20-[address] Mortensen aware pt hgb drop. See new orders. Normal [facility] PHOSPHORUSon 01-20-2024 Phosphate [Mass/Vol] 3.6 mg/dL Normal 2.5-4.5 [facility] Comment on above: Performed By: #### L AB103, PEG919, LAB15 ####Medical Transcriptionist: COURTNEY BENNETT ([phone])[facility])[address] [place] [address] Progress Noteon 01-20-2024 Progress Note Normal [facility] APTTon 01-19-2024 aPTT Coag (Bld) [Time] 59.2 s High 20.0-30.5 [facility] Comment on above: Result Comment: SUNNI Sidhu COMMENTS:NOTE: The therapeutic time for Heparin anticoagulation, based on Xa activity inhibition, is an APTT of 46-80 seconds. Performed By: #### L AB325 ####Medical Transcriptionist: COURTNEY BENNETT ([id number])[address] aPTT Coag (Bld) [Time] 51.4 s High 20.0-30.5 [facility] Comment on above: Result Comment: SUNNI Sidhu COMMENTS:NOTE: The therapeutic time for Heparin anticoagulation, based on Xa activity inhibition, is an APTT of 46-80 seconds. Performed By: #### L AB325 ####Medical Transcriptionist: COURTNEY BENNETT ([id number])[facility] [employer] aPTT Coag (Bld) [Time] 55.8 s High 20.0-30.5 [facility] Comment on above: Result Comment: SUNNI Sidhu COMMENTS:NOTE: The therapeutic time for Heparin anticoagulation, based on Xa activity inhibition, is an APTT of 46-80 seconds. Performed By: #### L AB325 ####Medical Transcriptionist: COURTNEY BENNETT ([id number])[facility] [employer] CHEST WO IV CONTRASTon CT CHEST WO IV CONTRAST Normal [facility] Consulton 01-19-2024 Consult Normal [facility] IDNon 01-19-2024 IDN Normal [facility] Laboratory - Chemistry and C hemistry - challengeOrdered By: Angelica Henson on 01-19-2024 Troponin I.cardiac [Mass/Vol] 1.940 ng/mL Critically high NINF - 0.034 ng/mL [facility] Progress Noteon 01-19-2024 Progress Note Nutrition rescreen completed. Chart reviewed. Patient to be monitored and followed by the diet arch support technician. RENETTA Turcios Normal [facility] Progress Note Normal [facility] TROPONIN Ion 01-19-2024 Troponin I.cardiac [Mass/Vol] 1.940 ng/mL Critically high <0.034 [facility] Comment on above: Result Comment: SUNNI Sidhu COMMENTS:Patients with high levels of Biotin oral intake (ie >5 mg/day) may have falsely decreased Troponin levels. Performed By: #### L [id number] ####Medical Transcriptionist: COURTNEY BENNETT ([id number])[facility] ([facility])[address] [place] [address] Troponin I.cardiac [Mass/Vol ]Ordered By: Angelica Henson on 01-19-2024 Interpretation and review of laboratory results Abnormal [facility] Patients with high levels of Biotin oral intake (ie >5 mg/day) may have falsely decreased Troponin levels. 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 Normal [facility] APTTon 01-18-2024 aPTT Coag (Bld) [Time] 39.0 s High 20.0-30.5 [facility] Comment on above: Result Comment: SUNNI Sidhu COMMENTS:NOTE: The therapeutic time for Heparin anticoagulation, based on Xa activity inhibition, is an APTT of 46-80 seconds. Performed By: #### L AB325 ####Medical Transcriptionist: COURTNEY BENNETT ([phone])[facility] ([facility])[address] [place] [address] aPTT Coag (Bld) [Time] 63.1 s High 20.0-30.5 [facility] Comment on above: Result Comment: SUNNI Sidhu COMMENTS:NOTE: The therapeutic time for Heparin anticoagulation, based on Xa activity inhibition, is an APTT of 46-80 seconds. Performed By: #### L AB325 ####Medical Transcriptionist: KYLE MURILLO ([id number])[facility] ([facility])[address] [place] [address] aPTT Coag (Bld) [Time] 48.7 s High 20.0-30.5 [facility] Comment on above: Result Comment: SUNNI Sidhu COMMENTS:NOTE: The therapeutic time for Heparin anticoagulation, based on Xa activity inhibition, is an APTT of 46-80 seconds. Performed By: #### L AB325 ####Medical Transcriptionist: KYLE MURILLO ([id number])[facility] ([facility])[address] [place] [address] aPTT Coag (Bld) [Time] 28.4 s Normal 20.0-30.5 [facility] Comment on above: Result Comment: SUNNI Sidhu COMMENTS:NOTE: The therapeutic time for Heparin anticoagulation, based on Xa activity inhibition, is an APTT of 46-80 seconds. Performed By: #### L AB325 ####Medical Transcriptionist: KYLE MURILLO ([phone])[facility] ([facility])[address] [place] [address] Anesthesia Noteon 01-18-2024 Anesthesia Note Normal [facility] BASIC METABOLIC PANELon 12-27 Anion gap [Moles/Vol] 7 mmol/L Normal 3-13 [facility] Comment on above: Performed By: #### L AB15, LAB63, [id number], [id number], [id number] ####Medical Transcriptionist: COURTNEY BENNETT ([phone])[facility] ([facility])[address] [place] [address] Calcium [Mass/Vol] 8.4 mg/dL Normal 8.4-10.4 [facility] Comment on above: Performed By: #### L AB15, LAB63, [id number], [id number], [id number] ####Medical Transcriptionist: COURTNEY BENNETT ([id number])[facility] ([facility])[address] [place] [address] Chloride [Moles/Vol] 108 mmol/L High 98-107 [facility] Comment on above: Performed By: #### L AB15, LAB63, [id number], [id number], [id number] ####Medical Transcriptionist: COURTNEY BENNETT ([id number])[facility] ([facility])[address] [place] [address] [place] CO2 [Moles/Vol] 19 mmol/L Low 22-30 [facility] Comment on above: Performed By: #### L AB15, LAB63, [id number], [id number], [id number] ####Medical Transcriptionist: COURTNEY BENNETT ([id number])[facility])[address] [place] [address] Creatinine [Mass/Vol] 1.91 mg/dL High 0.66-1.25 [facility] Comment on above: Performed By: #### L AB15, LAB63, WAB111, [id number], [id number] ####Medical Transcriptionist: COURTNEY BENNETT ([id number])[facility])[address] [place] [address] GLOMERULAR FILTRATION RATE ML/MIN/1.73 SQ M.PREDICTED 35.9 mL/min/1.73m*2 Low >60.0 [facility] Comment on above: Result Comment: Calc ulation based on the Chronic Kidney Disease Epidemiology Collaboration (CKD-EPI) equation refit without adjustment for race Performed By: #### L AB15, LAB63, BSE633, [id number], [id number] ####Medical Transcriptionist: COURTNEY BENNETT ([id number])[facility])[address] [place] [address] [place] Glucose [Mass/Vol] 131 mg/dL High 70-100 [facility] Comment on above: Performed By: #### L AB15, LAB63, [id number], [id number], [id number] ####Medical Transcriptionist: COURTNEY BENNETT ([phone])[facility])[address] [place] [address] [place] Potassium [Moles/Vol] 4.3 mmol/L Normal 3.5-5.1 [facility] Comment on above: Performed By: #### L AB15, LAB63, [id number], [id number], [id number] ####Medical Transcriptionist: COURTNEY BENNETT ([id number])[facility] ([facility])[address] [place] [address] Sodium [Moles/Vol] 135 mmol/L Normal 135-145 [facility] Comment on above: Performed By: #### L AB15, LAB63, [id number], [id number], [id number] ####Medical Transcriptionist: COURTNEY BENNETT ([id number])[facility] ([facility])[address] [place] [address] Urea nitrogen [Mass/Vol] 20 mg/dL Normal 9-20 [facility] Comment on above: Performed By: #### L AB15, LAB63, [id number], [id number], [id number] ####Medical Transcriptionist: COURTNEY BENNETT ([phone])[facility] ([facility])[address] [place] [address] Basic metabolic 1998 panelon 01-18-2024 Anion gap [Moles/Vol] 7 mmol/L 3 - 13 mmol/L [facility] Calcium [Mass/Vol] 8.4 mg/dL 8.4 - 10. 4 mg/dL [facility] Chloride [Moles/Vol] 108 mmol/L High 98 - 10 7 mmol/L [facility] CO2 [Moles/Vol] 19 mmol/L Low 22 - 30 mmol/L [facility] Creatinine [Mass/Vol] 1.91 mg/dL High 0.66 - 1.25 mg/dL [facility] GFR/1.73 sq M.predicted (S/P/Bld) [Vol rate/Area] 35.9 mL/min Low - PINF [facility] Comment on above: Calculation based on the Chronic Kidney Disease Epidemiology Collaboration (CKD-EPI) equation refit without adjustment for race Glucose [Mass/Vol] 131 mg/dL High 70 - 100 mg/dL [facility] Interpretation and review of laboratory results Abnormal [facility] Potassium [Moles/Vol] 4.3 mmol/L 3.5 - 5.1 mmol/L [facility] Sodium [Moles/Vol] 135 mmol/L 135 - 145 mmol/L [facility] Urea nitrogen [Mass/Vol] 20 mg/dL 9 - 20 mg/dL [facility] Anion gap [Moles/Vol] 9 mmol/L 3 - 13 mmol/L [facility] Calcium [Mass/Vol] 8.6 mg/dL 8.4 - 10. 4 mg/dL [facility] Chloride [Moles/Vol] 108 mmol/L High 98 - 10 7 mmol/L [facility] CO2 [Moles/Vol] 23 mmol/L 22 - 30 mmol/L [facility] Creatinine [Mass/Vol] 2.02 mg/dL High 0.66 - 1.25 mg/dL [facility] GFR/1.73 sq M.predicted (S/P/Bld) [Vol rate/Area] 33.5 mL/min Low - PINF [facility] Comment on above: Calculation based on the Chronic Kidney Disease Epidemiology Collaboration (CKD-EPI) equation refit without adjustment for race Glucose [Mass/Vol] 256 mg/dL High 70 - 100 mg/dL [facility] Interpretation and review of laboratory results Abnormal [facility] Potassium [Moles/Vol] 3.8 mmol/L 3.5 - 5.1 mmol/L [facility] Sodium [Moles/Vol] 141 mmol/L 135 - 145 mmol/L [facility] Urea nitrogen [Mass/Vol] 18 mg/dL 9 - 20 mg/dL [facility] CALCIUM, IONIZEDon CALCIUM IONIZED 4.40 mg/dL Normal 4.30-5.20 [facility] Comment on above: Performed By: #### L AB54 ####Medical Transcriptionist: COURTNEY BENNETT ([phone])[address] PH, IONIZED CALCIUM 7.40 Normal 7.31-7.46 [facility] Comment on above: Performed By: #### L AB54 ####Medical Transcriptionist: COURTNEY BENNETT ([phone])[facility])[address] [place] [address] CARECOORDon 01-18-2024 CARECOORD Normal [facility] CBC (HEMOGRAM)on 01-18-2024 Erythrocyte distribution width (RBC) [Ratio] 13.7 % Normal 11.5-15.0 [facility] Comment on above: Performed By: #### L AB294 ####Medical Transcriptionist: KYLE MURILLO ([id number])[facility] [place] ([facility])[address] Hematocrit (Bld) [Volume fraction] 40.2 % Normal 40.0-52.0 [facility] Comment on above: Performed By: #### L AB294 ####Medical Transcriptionist: KYLE MURILLO ([id number])[facility] PALOM[facility]ILARYN ([facility])[address] Hemoglobin (Bld) [Mass/Vol] 13.3 g/dL Normal 13.0-18.0 [facility] Comment on above: Performed By: #### L AB294 ####Medical Transcriptionist: KYLE MURILLO ([phone])[facility] [place] ([facility])[address] MCH (RBC) [Entitic mass] 28.4 pg Normal 26.0-34.0 [facility] Comment on above: Performed By: #### L AB294 ####Medical Transcriptionist: KYLE MURILLO ([id number])[facility] [place] ([facility])[address] [place] [address] MCHC 33.1 % Normal 30.5-36.0 [facility] Comment on above: Performed By: #### L AB294 ####Medical Transcriptionist: KYLE MURILLO ([id number])[place] ([facility])[address] MCV (RBC) [Entitic vol] 85.7 fL Normal 77.0-99.0 [facility] Comment on above: Performed By: #### L AB294 ####Medical Transcriptionist: KYLE MURILLO ([id number])[facility] BARBHILARYN ([facility])[address] Platelet mean volume (Bld) [Entitic vol] 11.3 fL Normal 9.0-12.7 [facility] Comment on above: Performed By: #### L AB294 ####Medical Transcriptionist: KYLE MURILLO ([id number])[facility] [place] ([facility])[address] Platelets (Bld) [#/Vol] 150 10*3/uL Normal 140-440 [facility] Comment on above: Performed By: #### L [id number] ####Medical Transcriptionist: KYLE MURILLO ([id number])[facility]ITAL[facility] (SBHLAB)[address] RBC (Bld) [#/Vol] 4.69 10*6/uL Normal 4.40-5.90 [facility] Comment on above: Performed By: #### L [id number] ####Medical Transcriptionist: KYLE MURILLO ([phone])[facility]ITALA [facility] ([facility])[address] WBC (Bld) [#/Vol] 6.3 10*3/uL Normal 3.6-10.7 [facility] Comment on above: Performed By: #### L [id number] ####Medical Transcriptionist: KYLE MURILLO ([phone])[facility]ITALJesi [facility] (SBHLAB)[address] [place] [address] Erythrocyte distribution width (RBC) [Ratio] 13.5 % Normal 11.5-15.0 [facility] Comment on above: Performed By: #### L [id number] ####Medical Transcriptionist: KYLE MURILLO ([phone])[facility]ITAL[facility] (SB[facility])[address] [place] [address] Hematocrit (Bld) [Volume fraction] 39.5 % Low 40.0-52.0 [facility] Comment on above: Performed By: #### L [id number] ####Medical Transcriptionist: KYLE MURILLO ([phone])[facility]ITALA [facility] (SBHLAB)[address] Hemoglobin (Bld) [Mass/Vol] 13.1 g/dL Normal 13.0-18.0 [facility] Comment on above: Performed By: #### L [id number] ####Medical Transcriptionist: KYLE MURILLO ([phone])[facility] (SBHLAB)[address] IPF 4 Normal [facility] Comment on above: Performed By: #### L [id number] ####Medical Transcriptionist: KYLE MURILLO ([phone])[facility]ITAL[facility] [place] (SBHLAB)[address] MCH (RBC) [Entitic mass] 28.4 pg Normal 26.0-34.0 [facility] Comment on above: Performed By: #### L [id number] ####Medical Transcriptionist: KYLE MURILLO ([phone])[facility] (SBHLAB)[address] MCHC 33.2 % Normal 30.5-36.0 [facility] Comment on above: Performed By: #### L [id number] ####Medical Transcriptionist: KYLE MURILLO ([phone])[facility] (SBHLAB)[address] MCV (RBC) [Entitic vol] 85.7 fL Normal 77.0-99.0 [facility] Comment on above: Performed By: #### L [id number] ####Medical Transcriptionist: KYLE MURILLO ([id number])[facility] (SBHLAB)[address] Platelet mean volume (Bld) [Entitic vol] 11.3 fL Normal 9.0-12.7 [facility] Comment on above: Performed By: #### L [id number] ####Medical Transcriptionist: KYLE MURILLO ([phone])[facility] [place] (SBHLAB)[address] [place] [address] [place] Platelets (Bld) [#/Vol] 136 10*3/uL Low 140-440 [facility] Comment on above: Performed By: #### L [id number] ####Medical Transcriptionist: KYLE MURILLO ([phone])[facility] (SBHLAB)[address] RBC (Bld) [#/Vol] 4.61 10*6/uL Normal 4.40-5.90 [facility] Comment on above: Performed By: #### L [id number] ####Medical Transcriptionist: KYLE MURILLO ([phone])[facility] (SBHLAB)[address] WBC (Bld) [#/Vol] 7.8 10*3/uL Normal 3.6-10.7 [facility] Comment on above: Performed By: #### L [id number] ####Medical Transcriptionist: KYLE MURILLO ([phone])[facility] (SBHLAB)[address] CBC W Auto Differential pane l (Bld)on 01-18-2024 Basophils (Bld) [#/Vol] 0.0 10*3/uL 0.0 - 0.2 10*3/uL [facility] Basophils/100 WBC (Bld) 0.6 % 0.0 - 2.0 % [facility] Eosinophils (Bld) [#/Vol] 0.1 10*3/uL 0.0 - 0.5 10*3/uL [facility] Eosinophils/100 WBC (Bld) 2.1 % 0.0 - 6.0 % [facility] Erythrocyte distribution width (RBC) [Ratio] 13.7 % 11.5 - 15.0 % [facility] Hematocrit (Bld) [Volume fraction] 44.8 % 40.0 - 52.0 % [facility] Hemoglobin (Bld) [Mass/Vol] 14.6 g/dL 13.0 - 18.0 g/dL [facility] Immature granulocytes (Bld) [#/Vol] 0.0 10*3/uL NINF - 0.1 10*3/uL [facility] Immature granulocytes/100 WBC (Bld) 0.2 % 0.0 - 2.0 % [facility] Interpretation and review of laboratory results Normal [facility] Lymphocytes (Bld) [#/Vol] 2.6 10*3/uL 1.0 - 4.3 10*3/uL [facility] Lymphocytes/100 WBC (Bld) 39.1 % 15.0 - 45.0 % [facility] MCH (RBC) [Entitic mass] 28.5 pg 26.0 - 34.0 pg [facility] MCHC (RBC) [Mass/Vol] 32.6 % 30.5 - 36.0 % [facility] MCV (RBC) [Entitic vol] 87.5 fL 77.0 - 99.0 fL [facility] Monocytes (Bld) [#/Vol] 0.4 10*3/uL 0.0 - 0.9 10*3/uL [facility] Monocytes/100 WBC (Bld) 6.4 % 5.0 - 13.0 % [facility] Neutrophils (Bld) [#/Vol] 3.4 10*3/uL 1.8 - 7.5 10*3/uL [facility] Neutrophils/100 WBC (Bld) 51.6 % 38.0 - 82.0 % [facility] Nucleated RBC/100 WBC (Bld) [Ratio] 0.0 % [facility] Platelet mean volume (Bld) [Entitic vol] 11.4 fL 9.0 - 12.7 fL [facility] Platelets (Bld) [#/Vol] 160 10*3/uL 140 - 440 10*3/uL [facility] RBC (Bld) [#/Vol] 5.12 10*6/uL 4.40 - 5.9 0 10*6/uL [facility] WBC (Bld) [#/Vol] 6.6 10*3/uL 3.6 - 10.7 10*3/uL [facility] CBC WITH AUTO DIFFERENTIALon 01-18-2024 Basophils (Bld) [#/Vol] 0.0 10*3/uL Normal 0.0-0.2 [facility] Comment on above: Performed By: #### L [id number] ####Medical Transcriptionist: COURTNEY BENNETT ([phone])[address] Basophils/100 WBC (Bld) 0.6 % Normal 0.0-2.0 [facility] Comment on above: Performed By: #### L [id number] ####Medical Transcriptionist: COURTNEY BENNETT ([id number])[facility] [address] Eosinophils (Bld) [#/Vol] 0.1 10*3/uL Normal 0.0-0.5 [facility] Comment on above: Performed By: #### L [id number] ####Medical Transcriptionist: COURTNEY BENNETT ([phone])[facility])[address] [place] [address] Eosinophils/100 WBC (Bld) 2.1 % Normal 0.0-6.0 [facility] Comment on above: Performed By: #### L [id number] ####Medical Transcriptionist: COURTNEY BENNETT ([id number])[address] Erythrocyte distribution width (RBC) [Ratio] 13.7 % Normal 11.5-15.0 [facility] Comment on above: Performed By: #### L [id number] ####Medical Transcriptionist: COURTNEY BENNETT ([id number])[address] Hematocrit (Bld) [Volume fraction] 44.8 % Normal 40.0-52.0 [facility] Comment on above: Performed By: #### L [id number] ####Medical Transcriptionist: COURTNEY BENNETT ([id number])[address] Hemoglobin (Bld) [Mass/Vol] 14.6 g/dL Normal 13.0-18.0 [facility] Comment on above: Performed By: #### L [id number] ####Medical Transcriptionist: COURTNEY BENNETT ([phone])[facility])[address] [place] [address] IMMATURE GRANS % 0.2 % Normal 0.0-2.0 [facility] Comment on above: Performed By: #### L [id number] ####Medical Transcriptionist: COURTNEY BENNETT ([phone])[address] IMMATURE GRANS ABSOLUTE 0.0 10*3/uL Normal <0.1 [facility] Comment on above: Performed By: #### L [id number] ####Medical Transcriptionist: COURTNEY BENNETT ([phone])[facility])[address] [place] [address] Lymphocytes (Bld) [#/Vol] 2.6 10*3/uL Normal 1.0-4.3 [facility] Comment on above: Performed By: #### L [id number] ####Medical Transcriptionist: COURTNEY BENNETT ([id number])[facility])[address] [place] [address] Lymphocytes/100 WBC (Bld) 39.1 % Normal 15.0-45.0 [facility] Comment on above: Performed By: #### L [id number] ####Medical Transcriptionist: COURTNEY BENNETT ([phone])[facility])[address] [place] [address] MCH (RBC) [Entitic mass] 28.5 pg Normal 26.0-34.0 [facility] Comment on above: Performed By: #### L [id number] ####Medical Transcriptionist: COURTNEY BENNETT ([phone])[facility])[address] [place] [address] MCHC 32.6 % Normal 30.5-36.0 [facility] Comment on above: Performed By: #### L [id number] ####Medical Transcriptionist: COURTNEY BENNETT ([phone])[facility])[address] [place] [address] MCV (RBC) [Entitic vol] 87.5 fL Normal 77.0-99.0 [facility] Comment on above: Performed By: #### L [id number] ####Medical Transcriptionist: COURTNEY BENNETT ([phone])[facility])[address] [place] [address] Monocytes (Bld) [#/Vol] 0.4 10*3/uL Normal 0.0-0.9 [facility] Comment on above: Performed By: #### L [id number] ####Medical Transcriptionist: COURTNEY BENNETT ([id number])[facility])[address] [place] [address] Monocytes/100 WBC (Bld) 6.4 % Normal 5.0-13.0 [facility] Comment on above: Performed By: #### L [id number] ####Medical Transcriptionist: COURTNEY BENNETT ([phone])[facility] ([facility])[address] [place] [address] NEUTROPHILS ABSOLUTE 3.4 10*3/uL Normal 1.8-7.[address] [facility] Comment on above: Performed By: #### L [id number] ####Medical Transcriptionist: COURTNEY BENNETT ([phone])[facility] ([facility])[address] [place] [address] Neutrophils/100 WBC (Bld) 51.6 % Normal 38.0-82.0 [facility] Comment on above: Performed By: #### L [id number] ####Medical Transcriptionist: COURTNEY BENNETT ([phone])[facility])[address] [place] [address] NRBC 0.0 /100 WBCs Normal 0.0-2.0 [facility] Comment on above: Performed By: #### L [id number] ####Medical Transcriptionist: COURTNEY BENNETT ([phone])[facility] ([facility])[address] [place] [address] Platelet mean volume (Bld) [Entitic vol] 11.4 fL Normal 9.0-12.7 [facility] Comment on above: Performed By: #### L [id number] ####Medical Transcriptionist: COURTNEY BENNETT ([id number])[facility] ([facility])[address] [place] [address] [place] Platelets (Bld) [#/Vol] 160 10*3/uL Normal 140-440 [facility] Comment on above: Performed By: #### L [id number] ####Medical Transcriptionist: COURTNEY BENNETT ([phone])[facility] ([facility])[address] [place] [address] RBC (Bld) [#/Vol] 5.12 10*6/uL Normal 4.40-5.90 [facility] Comment on above: Performed By: #### L [id number] ####Medical Transcriptionist: COURTNEY BENNETT ([phone])[facility])[address] [place] [address] WBC (Bld) [#/Vol] 6.6 10*3/uL Normal 3.6-10.7 [facility] Comment on above: Performed By: #### L [id number] ####Medical Transcriptionist: COURTNEY BENNETT ([phone])[facility] ([facility])[address] [place] [address] CBC panel Auto (Bld)on 01-17 Erythrocyte distribution width (RBC) [Ratio] 13.7 % 11.5 - 15.0 % [facility] Hematocrit (Bld) [Volume fraction] 40.2 % 40.0 - 52.0 % [facility] Hemoglobin (Bld) [Mass/Vol] 13.3 g/dL 13.0 - 18.0 g/dL [facility] Interpretation and review of laboratory results Normal [facility] MCH (RBC) [Entitic mass] 28.4 pg 26.0 - 34.0 pg [facility] MCHC (RBC) [Mass/Vol] 33.1 % 30.5 - 36.0 % [facility] MCV (RBC) [Entitic vol] 85.7 fL 77.0 - 99.0 fL [facility] Platelet mean volume (Bld) [Entitic vol] 11.3 fL 9.0 - 12.7 fL [facility] Platelets (Bld) [#/Vol] 150 10*3/uL 140 - 440 10*3/uL [facility] RBC (Bld) [#/Vol] 4.69 10*6/uL 4.40 - 5.9 0 10*6/uL [facility] WBC (Bld) [#/Vol] 6.3 10*3/uL 3.6 - 10.7 10*3/uL [facility] Erythrocyte distribution width (RBC) [Ratio] 13.5 % 11.5 - 15.0 % [facility] Hematocrit (Bld) [Volume fraction] 39.5 % Low 40.0 - 52.0 % [facility] Hemoglobin (Bld) [Mass/Vol] 13.1 g/dL 13.0 - 18.0 g/dL [facility] Interpretation and review of laboratory results Abnormal [facility] IPF 4 [facility] MCH (RBC) [Entitic mass] 28.4 pg 26.0 - 34.0 pg [facility] MCHC (RBC) [Mass/Vol] 33.2 % 30.5 - 36.0 % [facility] MCV (RBC) [Entitic vol] 85.7 fL 77.0 - 99.0 fL [facility] Platelet mean volume (Bld) [Entitic vol] 11.3 fL 9.0 - 12.7 fL [facility] Platelets (Bld) [#/Vol] 136 10*3/uL Low 140 - 440 10*3/uL [facility] RBC (Bld) [#/Vol] 4.61 10*6/uL 4.40 - 5.9 0 10*6/uL [facility] WBC (Bld) [#/Vol] 7.8 10*3/uL 3.6 - 10.7 10*3/uL [facility] CK TOTAL AND CKMBon 01-18-20 24 CK [Catalytic activity/Vol] 157 U/L Normal 30-170 [facility] Comment on above: Performed By: #### L AB15, LAB63, [id number], [id number], [id number] ####Medical Transcriptionist: COURTNEY BENNETT ([id number])[facility] ([facility])[address] [place] [address] CK.MB [Mass/Vol] 8.0 ng/mL High 0.0-4.4 [facility] Comment on above: Performed By: #### L AB15, LAB63, [id number], [id number], [id number] ####Medical Transcriptionist: COURTNEY BENNETT ([phone])[facility] ([facility])[address] [place] [address] RELATIVE INDEX 5.1 High 0.0-3.0 [facility] Comment on above: Performed By: #### L AB15, LAB63, [id number], [id number], [id number] ####Medical Transcriptionist: COURTNEY BENNETT ([phone])[facility] ([facility])[address] [place] [address] CK.total/Creatine kinase.MB [Catalytic ratio]on 01-18-2024 CK [Catalytic activity/Vol] 157 U/L 30 - 170 U/L [facility] CK.MB [Mass/Vol] 8.0 ng/mL High 0.0 - 4.4 ng/mL [facility] RELATIVE INDEX 5.1 High 0.0 - 3.0 [facility] COMPREHENSIVE METABOLIC PANE Daniel 01-18-2024 Albumin [Mass/Vol] 3.2 g/dL Low 3.5-5.0 [facility] Comment on above: Performed By: #### Jamison BOWER74Audrey, LAB17, LAB18 ####Medical Transcriptionist: KYLE MURILLO ([phone])[facility] (SBHLAB)[address] [place] [address] ALP [Catalytic activity/Vol] 68 U/L Normal 38-126 [facility] Comment on above: Performed By: #### Jamison GOLDEN, LAB17, LAB18 ####Medical Transcriptionist: KYLE MURILLO ([phone])[facility] (SBHLAB)[address] [place] [address] ALT [Catalytic activity/Vol] 12 U/L Normal 0-49 [facility] Comment on above: Performed By: #### Jamison BOWER74Audrey, LAB17, LAB18 ####Medical Transcriptionist: KYLE MURILLO ([id number])[facility] (SBHLAB)[address] Anion gap [Moles/Vol] 6 mmol/L Normal 3-[address] [facility] Comment on above: Performed By: #### Jamison [id number], LAB17, LAB18 ####Medical Transcriptionist: KYLE MURILLO ([phone])[facility] (SBHLAB)[address] AST [Catalytic activity/Vol] 31 U/L Normal 15-46 [facility] Comment on above: Performed By: #### Jamison GOLDEN, LAB17, LAB18 ####Medical Transcriptionist: KYLE MURILLO ([phone])[facility] [place] (SBHLAB)[address] Bilirubin [Mass/Vol] 1.0 mg/dL Normal 0.2-1.3 [facility] Comment on above: Performed By: #### Jamison GOLDEN, LAB17, LAB18 ####Medical Transcriptionist: KYLE MURILLO ([id number])[facility] [place] (SBHLAB)[address] Calcium [Mass/Vol] 8.8 mg/dL Normal 8.4-10.4 [facility] Comment on above: Performed By: #### Jamison GOLDEN, LAB17, LAB18 ####Medical Transcriptionist: KYLE MURILLO ([phone])[facility] [place] (SBHLAB)[address] [place] [address] [place] Chloride [Moles/Vol] 108 mmol/L High 98-107 [facility] Comment on above: Performed By: #### Jaimson GOLDEN, LAB17, LAB18 ####Medical Transcriptionist: KYLE MURILLO ([phone])[facility] [place] (SBHLAB)[address] CO2 [Moles/Vol] 24 mmol/L Normal 22-30 [facility] Comment on above: Performed By: #### Jamison GOLDEN, LAB17, LAB18 ####Medical Transcriptionist: KYLE MURILLO ([phone])[facility] [place] (SBHLAB)[address] [place] [address] [place] Creatinine [Mass/Vol] 2.03 mg/dL High 0.66-1.25 [facility] Comment on above: Performed By: #### Jamison GOLDEN, LAB17, LAB18 ####Medical Transcriptionist: KYLE MURILLO ([phone])[facility] [place] (SBHLAB)[address] [place] [address] [place] GLOMERULAR FILTRATION RATE ML/MIN/1.73 SQ M.PREDICTED 33.4 mL/min/1.73m*2 Low >60.0 [facility] Comment on above: Result Comment: Calc ulation based on the Chronic Kidney Disease Epidemiology Collaboration (CKD-EPI) equation refit without adjustment for race Performed By: #### Jamison GOLDEN, LAB17, LAB18 ####Medical Transcriptionist: KYLE MURILLO ([phone])[facility] [place] (SBHLAB)[address] Glucose [Mass/Vol] 102 mg/dL High 70-100 [facility] Comment on above: Performed By: #### Jamison GOLDEN, LAB17, LAB18 ####Medical Transcriptionist: KYLE MURILLO ([id number])[facility] ([facility])[address] Potassium [Moles/Vol] 4.2 mmol/L Normal 3.5-5.1 [facility] Comment on above: Performed By: #### Jamison GOLDEN, LAB17, LAB18 ####Medical Transcriptionist: KYLE MURILLO ([phone])[facility] ([facility])[address] [place] [address] [place] Protein [Mass/Vol] 6.0 g/dL Low 6.3-8.2 [facility] Comment on above: Performed By: #### Jamison GOLDEN, LAB17, LAB18 ####Medical Transcriptionist: KYLE MURILLO ([phone])[facility] ([facility])[address] [place] [address] [place] Sodium [Moles/Vol] 139 mmol/L Normal 135-145 [facility] Comment on above: Performed By: #### Jamison GOLDEN, LAB17, LAB18 ####Medical Transcriptionist: KYLE MURILLO ([phone])[facility] ([facility])[address] [place] [address] [place] Urea nitrogen [Mass/Vol] 20 mg/dL Normal 9-20 [facility] Comment on above: Performed By: #### Jamison GOLDEN, LAB17, LAB18 ####Medical Transcriptionist: KYLE MURILLO ([phone])[facility] (SBHL[facility])[address] [place] [address] Calcium.ionized [Moles/Vol]o n 01-18-2024 Calcium.ionized (Bld) [Moles/Vol] 4.40 mg/dL 4.30 - 5.20 mg/dL [facility] Interpretation and review of laboratory results Normal [facility] PH, IONIZED CALCIUM 7.40 7.31 - 7.46 [facility] Cardiac catheterization stud yon 01-18-2024 NSTEMI due to 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 LM with 70% distal stenosis LAD with ostial and proximal 85% stenosis, 80% mid segment stenosis and 50% distal stenosis Ramus intermedius with an 80% proximal stenosis and 70% mid to distal segment stenoiss Left circumflex with an 80% mid segment stenosis RCA with 99% distal segment stenosis at the bifurcation to the RPDA and RPLV. 90% stenosis of proximal RPL and 100% TURBINATED BONE GRINDER of ostial RPDA--distal vessel filling by [id number] collaterals. Normal LVEDP; no aortic stenosis. Procedure Details Patient was prepped and draped in sterile fashion. Soft tissue overlying the right radial artery was anesthetized with lidocaine injected subcutaneously. 6 Welsh sheath was advanced into the right radial artery using modified Seldinger technique. Standard cocktail of nitroglycerin and verapamil was administered through the sheath. Patient was anticoagulated with IV heparin. Left coronary angiogram was performed using a 6F JL3.0 catheter as the 5F JL3.5 could not engage the LM. The RCA was engaged using a 5F JR4 catheter. JR4 catheter was advanced across the aortic valve using a guidewire to perform left heart cath with measurement of pressures. There was radial arterial spasm on catheter manipulation, managed with more sedation. Catheter was aspirated and flushed with saline. Sheath was aspirated and flushed between all catheter exchanges. At the end of the case, radial sheath was withdrawn and arterial hemostasis was achieved with placement of Vasc Band over the right radial arteriotomy. Coronary Findings Diagnostic Dominance: Right Left Main: Mid LM to Dist LM lesion, 70% stenosed. Left Anterior Descending: The vessel is large in size. The vessel exhibits moderate disease. The vessel is mildly calcified. Ost LAD to Prox LAD lesion, 85% stenosed. Mid LAD lesion, 85% stenosed. Dist LAD lesion, 50% stenosed. Ramus Intermedius: The vessel is moderate in size. The vessel exhibits mild disease. Ramus-1 lesion, 80% stenosed. Ramus-2 lesion, 60% stenosed. Ramus-3 lesion, 70% stenosed. Left Circumflex: The vessel is moderate in size. The vessel exhibits mild disease. Mid Cx lesion, 80% stenosed. First Obtuse Marginal Branch: The vessel is small in size. The vessel exhibits mild disease. Right Coronary Artery: The vessel is large in size. The vessel exhibits mild disease. The vessel is mildly calcified. The vessel is moderately ectatic. Dist RCA lesion, 99% stenosed with 90% stenosed side branch in RPAV. Right Posterior Descending Artery: RPDA filled by collaterals from Dist LAD. RPDA lesion, 100% stenosed. Right Posterior Atrioventricular Artery: RPAV lesion, 70% stenosed. Intervention No interventions have been documented. Left Ventricle Left ventriculogram was not performed.LV systolic pressure is normal. LV end diastolic pressure is normal. Aortic Valve There is no aortic valve stenosis. Clinical Background 78 y.o. male with a history of HTN, HLD, type 2 DM, CKD stage 3B (Cr 2) who presented to the ED with acute anginal chest pain and elevated troponin of 2 consistent with NSTEMI. Patient referred for cardiac cath. Hemodynamics Interpretation 1. LVEDP 9 mmHg 2. No significant aortic valve gradient, no aortic stenosis Cath Recommendations Patient management should include: Aggressive risk factor modification, optimal medical management and cardiac rehabillitation. - Will transfer to [facility] for Heart Team consultation and consideration of coronary revascularization options--CABG vs. Protected PCI with Impella CV CPACS HEMO [facility] Comprehensive metabolic 1998 panelon 01-18-2024 Albumin [Mass/Vol] 3.2 g/dL Low 3.5 - 5.0 g/dL [facility] ALP [Catalytic activity/Vol] 68 U/L 38 - 126 U/L [facility] ALT [Catalytic activity/Vol] 12 U/L 0 - 49 U/L [facility] Anion gap [Moles/Vol] 6 mmol/L 3 - 13 mmol/L [facility] AST [Catalytic activity/Vol] 31 U/L 15 - 46 U/L [facility] Bilirubin [Mass/Vol] 1.0 mg/dL 0.2 - 1 .3 mg/dL [facility] Calcium [Mass/Vol] 8.8 mg/dL 8.4 - 10. 4 mg/dL [facility] Chloride [Moles/Vol] 108 mmol/L High 98 - 10 7 mmol/L [facility] CO2 [Moles/Vol] 24 mmol/L 22 - 30 mmol/L [facility] Creatinine [Mass/Vol] 2.03 mg/dL High 0.66 - 1.25 mg/dL [facility] GFR/1.73 sq M.predicted (S/P/Bld) [Vol rate/Area] 33.4 mL/min Low - PINF [facility] Comment on above: Calculation based on the Chronic Kidney Disease Epidemiology Collaboration (CKD-EPI) equation refit without adjustment for race Glucose [Mass/Vol] 102 mg/dL High 70 - 100 mg/dL [facility] Potassium [Moles/Vol] 4.2 mmol/L 3.5 - 5.1 mmol/L [facility] Protein [Mass/Vol] 6.0 g/dL Low 6.3 - 8.2 g/dL [facility] Sodium [Moles/Vol] 139 mmol/L 135 - 145 mmol/L [facility] Urea nitrogen [Mass/Vol] 20 mg/dL 9 - 20 mg/dL [facility] Consulton 01-18-2024 Consult Normal [facility] HEMOGLOBIN A1Con 01-18-2024 Glucose [Mass/Vol] 126 mg/dL Normal [facility] Comment on above: Performed By: #### L [id number] ####Medical Transcriptionist: COURTNEY BENNETT ([id number])[facility] ([address] HbA1c (Bld) [Mass fraction] 6.0 % High <5.7 [facility] Comment on above: Result Comment: Norm al less than 5.7%Prediabetes 5.7% to 6.4%Diabetes 6.5% or higher--HgbA1C levels may not be accurate in patients who have renal disease, received recent blood transfusions, are anemic, or who have dyshemoglobinemia. Performed By: #### L AB90 ####Medical Transcriptionist: COURTNEY BENNETT ([id number])[facility] ([facility])[address] [place] [address] IDNon 01-18-2024 IDN Normal [facility] IDN Normal [facility] LIPID PANELon 01-18-2024 Cholesterol [Mass/Vol] 180 mg/dL Normal <200 [facility] Comment on above: Order Comment: If no t done in the last six months. Performed By: #### L [id number], LAB17, LAB18 ####Medical Transcriptionist: KYLE MURILLO ([phone])[facility] (SBHLAB)[address] [place] [address] Cholesterol in HDL [Mass/Vol] 33 mg/dL Low 40-60 [facility] Comment on above: Order Comment: If no t done in the last six months. Performed By: #### L [id number], LAB17, LAB18 ####Medical Transcriptionist: KYLE MURILLO ([phone])[facility] [place] (SBHLAB)[address] [place] [address] Cholesterol.total/Dai sterol in HDL [Mass ratio] 5 {ratio} Normal [facility] Comment on above: Order Comment: If no t done in the last six months. Result Comment: Ref Range:< 3 Low Risk for CHD3-6 Mod Risk for CHD> 6 High Risk for CHD Performed By: #### L [id number], LAB17, LAB18 ####Medical Transcriptionist: KYLE MURILLO ([id number])[facility] [place] (SBHLAB)[address] LOW DENSITY LIPOPROTEIN 127 mg/dL High 0-<100 [facility] Comment on above: Order Comment: If no t done in the last six months. Performed By: #### L [id number], LAB17, LAB18 ####Medical Transcriptionist: KYLE MURILLO ([id number])[facility] (SBHLAB)[address] [place] [address] [place] Triglyceride [Mass/Vol] 100 mg/dL Normal <150 [facility] Comment on above: Order Comment: If no t done in the last six months. Performed By: #### L [id number], LAB17, LAB18 ####Medical Transcriptionist: KYLE MURILLO ([id number])[facility] (SB[facility])[address] [place] [address] Laboratory - Chemistry and C hemistry - challengeOrdered By: Karyn Ewing on 01-18-2024 Troponin I.cardiac [Mass/Vol] 2.250 ng/mL Critically high [facility] ng/mL [facility] Laboratory - Chemistry and C hemistry - challengeon 01-18-2024 Average glucose Estimated from glycated hemoglobin (Bld) [Mass/Vol] 126 mg/dL [facility] Magnesium [Mass/Vol] 1.8 mg/dL 1.6 - 2 .3 mg/dL [facility] Troponin I.cardiac [Mass/Vol] 2.165 ng/mL Critically high [facility] - 0.034 ng/mL [facility] Troponin I.cardiac [Mass/Vol] 1.022 ng/mL Critically high [facility] - 0.034 ng/mL [facility] Laboratory - Chemistry and C hemistry - challengeOrdered By: Maykel Harper on 01-18-2024 Troponin I.cardiac [Mass/Vol] 0.193 ng/mL Critically high [facility] - 0.034 ng/mL [facility] Laboratory - Hematology and Cell countson 01-18-2024 HbA1c (Bld) [Mass fraction] 6.0 % High [facility] - 5.7 % [facility] Comment on above: Normal less than 5.7 % Prediabetes 5.7% to 6.4% Diabetes 6.5% or higher --HgbA1C levels may not be accurate in patients who have renal disease, received recent blood transfusions, are anemic, or who have dyshemoglobinemia. Lipid 1996 panelon 4 Cholesterol [Mass/Vol] 180 mg/dL NINF - 200 mg/dL [facility] Cholesterol in HDL [Mass/Vol] 33 mg/dL Low 40 - 60 mg/dL [facility] Cholesterol in LDL [Mass/Vol] 127 mg/dL High 0 - <100 [facility] Cholesterol.total/Dai sterol in HDL [Mass ratio] 5 {ratio} [facility] Comment on above: Ref Range: < 3 Low Risk for CHD 3-6 Mod Risk for CHD > 6 High Risk for CHD Triglyceride [Mass/Vol] 100 mg/dL NINF - 150 mg/dL [facility] MAGNESIUMon 01-18-2024 Magnesium [Mass/Vol] 1.8 mg/dL Normal 1.6-2.3 [facility] Comment on above: Performed By: #### L AB15, LAB63, [id number], [id number], [id number] ####Medical Transcriptionist: COURTNEY BENNETT ([id number])[facility] ([address] Natriuretic peptide B [Mass/ Vol]on 01-18-2024 Interpretation and review of laboratory results Abnormal [facility] Natriuretic peptide B (Bld) [Mass/Vol] 1340 pg/mL High <20 - 300 [facility] No Panel Informationon 01-17 Interpretation and review of laboratory results Abnormal [facility] Interpretation and review of laboratory results Normal [facility] Interpretation and review of laboratory results Abnormal [facility] P [place] 43 degrees [facility] HI Interval 142 ms [facility] QRS [place] 0 degrees [facility] QRSD Interval 84 ms [facility] Interval 373 ms [facility] QTC Interval 441 ms [facility] T Wave [place] 107 degrees [facility] Jose Robledo, - 01/18/2024 IMPRESSION: Sinus rhythm Atrial premature complexes Abnormal R-wave progression, early transition Repol abnrm suggests ischemia, lateral leads Electronically Signed On 01-18-2024 06:16:41 EDT by Jose Robledo [facility] Nursing Noteon 01-18-2024 Nursing Note 1645: bleeding at right radial heart cath site. No active bleeding present. Injected 2 ml air back into radial compression device. Will re assess in 15 minutes Normal [facility] PHOSPHORUSon 01-18-2024 Phosphate [Mass/Vol] 3.2 mg/dL Normal 2.5-4.5 [facility] Comment on above: Performed By: #### L AB15, LAB63, [id number], [id number], [id number] ####Medical Transcriptionist: COURTNEY BENNETT ([id number])[facility] ([facility])[address] [place] [address] [place] Phosphate [Moles/Vol]on 12-27 Phosphate [Mass/Vol] 3.2 mg/dL 2.5 - 4 .5 mg/dL [facility] Progress Noteon 01-18-2024 Progress Note Normal [facility] Progress Note Normal [facility] TROPONIN Ion 01-18-2024 Troponin I.cardiac [Mass/Vol] 2.165 ng/mL Critically high <0.034 [facility] Comment on above: Result Comment: SUNNI Sidhu COMMENTS:Patients with high levels of Biotin oral intake (ie >5 mg/day) may have falsely decreased Troponin levels. Performed By: #### L [id number], LAB17, LAB18 ####Medical Transcriptionist: KYLE MURILLO ([phone])[facility] ([facility])[address] [place] [address] Troponin I.cardiac [Mass/Vol] 1.022 ng/mL Critically high <0.034 [facility] Comment on above: Result Comment: SUNNI Sidhu COMMENTS:Patients with high levels of Biotin oral intake (ie >5 mg/day) may have falsely decreased Troponin levels. Performed By: #### L [id number] ####Medical Transcriptionist: KYLE MURILLO ([phone])[facility] ([facility])[address] [place] [address] TROPONIN, WITH SERIAL REFLEX on 01-18-2024 Troponin I.cardiac [Mass/Vol] 2.250 ng/mL Critically high <0.034 [facility] Comment on above: Result Comment: SUNNI Sidhu COMMENTS:Patients with high levels of Biotin oral intake (ie >5 mg/day) may have falsely decreased Troponin levels. Performed By: #### L AB15, LAB63, [id number], [id number], [id number] ####Medical Transcriptionist: COURTNEY BENNETT ([id number])[facility] ([facility])[address] [place] [address] [place] Troponin I.cardiac [Mass/Vol ]Ordered By: Karyn Ewing on 01-18-2024 Interpretation and review of laboratory results Abnormal [facility] Patients with high levels of Biotin oral intake (ie >5 mg/day) may have falsely decreased Troponin levels. [facility] Troponin I.cardiac [Mass/Vol ]on 01-18-2024 Interpretation and review of laboratory results Abnormal [facility] Patients with high levels of Biotin oral intake (ie >5 mg/day) may have falsely decreased Troponin levels. [facility] Interpretation and review of laboratory results Abnormal [facility] Patients with high levels of Biotin oral intake (ie >5 mg/day) may have falsely decreased Troponin levels. [facility] Troponin I.cardiac [Mass/Vol ]Ordered By: Maykel Harper on 01-18-2024 Interpretation and review of laboratory results Abnormal [facility] Patients with high levels of Biotin oral intake (ie >5 mg/day) may have falsely decreased Troponin levels. [facility] US Heart TransthoracicOrdere d By: Rafita Fernandez on 01-18-2024 Ao Root Index 1.73 cm/m2 [facility] Work Phone: Aortic Root 3.3 cm [facility] Work Phone: AR Max Velocity PISA 3.8 m/s [facility] Work Phone: AR PHT 322.8 ms [facility] Work Phone: Ascending Aorta 3.6 cm [facility] Work Phone: Ascending Aorta Index 1.88 cm/m2 [facility] Work Phone: AV Mean Gradient 4 mmHg [facility] Work Phone: AV Mean Velocity 1.0 m/s [facility] Work Phone: AV Peak Gradient 7 mmHg [facility] Work Phone: AV Peak Velocity 1.3 m/s [facility] Work Phone: AV VTI 28.4 cm [facility] Work Phone: EF BP 74 % 55 - 100 % [facility] Work Phone: Fractional Shortening 2D 26 % 28 - 44 % [facility] Work Phone: Interpretation and review of laboratory results Abnormal [facility] Work Phone: IVSd 1.3 cm Abnormal 0.6 - 1.0 cm [facility] Work Phone: LA Diameter 4.8 cm [facility] Work Phone: LA Size Index 2.51 cm/m2 [facility] [employer] Work Phone: LA Volume 2C 72 mL Abnormal 18 - 58 mL [facility] Work Phone: LA Volume 4C 71 mL Abnormal 18 - 58 mL [facility] Work Phone: LA Volume A/L 76 mL [facility] [employer] Work Phone: LA Volume BP 73 mL Abnormal 18 - 58 mL [facility] Work Phone: LA Volume Index 2C 38 mL/m2 Abnormal 16 - 34 mL/m2 [facility] Work Phone: LA Volume Index 4C 37 mL/m2 Abnormal 16 - 34 mL/m2 [facility] Work Phone: LA Volume Index A/L 40 mL/m2 16 - 34 mL/m2 [facility] Work Phone: LA Volume Index BP 38 ml/m2 Abnormal 16 - 34 ml/m2 [facility] Work Phone: LA/AO Root Ratio 1.45 [facility] Work Phone: LV E' Lateral Velocity 7 cm/s [facility] Work Phone: LV E' Septal Velocity 4 cm/s [facility] Work Phone: LV EDV A2C 76 mL [facility] Work Phone: LV EDV A4C 61 mL [facility] Work Phone: LV EDV BP 72 mL 67 - 155 mL [facility] Work Phone: LV EDV Index A2C 40 mL/m2 [facility] Work Phone: LV EDV Index A4C 32 mL/m2 [facility] Work Phone: LV EDV Index BP 38 mL/m2 [facility] Work Phone: LV Ejection Fraction A2C 78 % [facility] Work Phone: LV Ejection Fraction A4C 71 % [facility] Work Phone: LV ESV A2C 17 mL [facility] Work Phone: LV ESV A4C 17 mL [facility] Work Phone: LV ESV BP 19 mL Abnormal 22 - 58 mL [facility] Work Phone: LV ESV Index A2C 9 mL/m2 [facility] Work Phone: LV ESV Index A4C 9 mL/m2 [facility] Work Phone: LV ESV Index BP 10 mL/m2 [facility] Work Phone: LV Mass 2D 167.4 g 88 - 224 g [facility] Work Phone: LV Mass 2D Index 87.7 g/m2 49 - 115 g/m2 [facility] Work Phone: LV RWT Ratio 0.48 [facility] Work Phone: LVIDd 4.2 cm 4.2 - 5.9 cm [facility] Work Phone: LVIDd Index 2.20 cm/m2 [facility] Work Phone: LVIDs 3.1 cm [facility] Work Phone: LVIDs Index 1.62 cm/m2 [facility] Work Phone: LVOT Area 3.1 cm2 [facility] Work Phone: LVOT Diameter 2.0 cm [facility] Work Phone: LVPWd 1.0 cm 0.6 - 1.0 cm [facility] Work Phone: PASP 37 mmHg [facility] Work Phone: Pulmonary Artery EDP 12 mmHg [facility] Work Phone: Pulmonary Artery EDP 2 mmHg [facility] Work Phone: PV Max Velocity 0.8 m/s [facility] Work Phone: PV Mean Gradient 2 mmHg [facility] Work Phone: PV Mean Velocity 0.6 m/s [facility] Work Phone: PV Peak Gradient 3 mmHg [facility] Work Phone: RA Area 4C 48.0 mL [facility] Work Phone: RA Area 4C 44.2 mL [facility] Work Phone: RV Basal Dimension 3.3 cm [facility] Work Phone: RV Free Wall Peak S' 14 cm/s [facility] Work Phone: RV Mid Dimension 2.8 cm [facility] Work Phone: TAPSE 2.1 cm 1.7 cm [facility] Work Phone: TR Max Velocity 2.93 m/s [facility] Work Phone: TR Peak Gradient 34 mmHg [facility] Work Phone: [facility] Work Phone: Heart Transthoracicon Left Ventricle: Left ventricle size is normal. Mildly increased wall thickness. Normal left ventricular systolic function. EF by 2D Simpsons Biplane is 74%. Normal wall motion. Diastolic dysfunction present with normal LVEF. Right Ventricle: Right ventricle size is normal. Normal systolic function. Aortic Valve: Mild (1+) regurgitation. Left Atrium: Left atrium is mildly dilated. Pulmonary Arteries: Pulmonary artery was not well visualized. Mild pulmonary hypertension present. No comparison record. Left Ventricle Left ventricle size is normal. Mildly increased wall thickness. Normal left ventricular systolic function. EF by 2D Simpsons Biplane is 74%. Normal wall motion. Diastolic dysfunction present with normal LVEF. Right Ventricle Right ventricle size is normal. Normal systolic function. Left Atrium Left atrium is mildly dilated. Right Atrium Right atrium size is normal. IVC/SVC IVC was not well visualized. IVC diameter is normal and decreases greater than 50% during inspiration; therefore the estimated right atrial pressure is normal (~3 mmHg). Mitral Valve Valve structure is normal. Trace regurgitation. No stenosis noted. Tricuspid Valve Valve structure is normal. Trace regurgitation. Aortic Valve Trileaflet. No cusp thickening. Mildly calcified cusps. Mild (1+) regurgitation. No stenosis. Pulmonic Valve Valve structure is normal. Trace regurgitation. Ascending Aorta Normal sized sinuses of Valsalva and ascending aorta. Pericardium No pericardial effusion. Septum No interatrial shunt visualized on color Doppler. Pulmonary Artery Pulmonary artery was not well visualized. Mild pulmonary hypertension present. Study Details Image quality: suboptimal. Blood pressure: 136/73 mmHg. Technical qualifiers: Technically difficult study with poor endocardial visualization. Ultrasound enhancement agent was given to enhance imaging. CV CPACS Vital signson 01-18-2024 Heart rate 83 /min bpm [facility] aPTT Coag (Bld) [Time]on aPTT Coag (PPP) [Time] 39.0 s High 20.0 - 30.5 s [facility] Interpretation and review of laboratory results Abnormal [facility] NOTE: The therapeutic time for Heparin anticoagulation, based on Xa activity inhibition, is an APTT of 46-80 seconds. [facility] aPTT Coag (PPP) [Time] 63.1 s High 20.0 - 30.5 s [facility] Interpretation and review of laboratory results Abnormal [facility] NOTE: The therapeutic time for Heparin anticoagulation, based on Xa activity inhibition, is an APTT of 46-80 seconds. [facility] aPTT Coag (PPP) [Time] 48.7 s High 20.0 - 30.5 s [facility] Interpretation and review of laboratory results Abnormal [facility] NOTE: The therapeutic time for Heparin anticoagulation, based on Xa activity inhibition, is an APTT of 46-80 seconds. [facility] aPTT Coag (PPP) [Time] 28.4 s 20.0 - 30.5 s [facility] Interpretation and review of laboratory results Normal [facility] NOTE: The therapeutic time for Heparin anticoagulation, based on Xa activity inhibition, is an APTT of 46-80 seconds. [facility] BASIC METABOLIC PANELon 12-27 Anion gap [Moles/Vol] 9 mmol/L Normal 3-13 [facility] Comment on above: Performed By: #### L [id number], LAB15, [id number] ####Medical Transcriptionist: KYLE MURILLO ([id number])[facility] [place] (SBHLAB)[address] Calcium [Mass/Vol] 8.6 mg/dL Normal 8.4-10.4 [facility] Comment on above: Performed By: #### L [id number], LAB15, [id number] ####Medical Transcriptionist: KYLE MURILLO ([id number])[facility] (SB[facility])[address] Chloride [Moles/Vol] 108 mmol/L High 98-107 [facility] Comment on above: Performed By: #### L [id number], LAB15, [id number] ####Medical Transcriptionist: KYLE MURILLO ([id number])[facility] (SBHLAB)[address] CO2 [Moles/Vol] 23 mmol/L Normal 22-30 [facility] Comment on above: Performed By: #### L [id number], LAB15, [id number] ####Medical Transcriptionist: KYLE MURILLO ([id number])[facility] ([facility])[address] Creatinine [Mass/Vol] 2.02 mg/dL High 0.66-1.25 [facility] Comment on above: Performed By: #### L [id number], LAB15, [id number] ####Medical Transcriptionist: KYLE MURILLO ([id number])[facility] (SB[facility])[address] GLOMERULAR FILTRATION RATE ML/MIN/1.73 SQ M.PREDICTED 33.5 mL/min/1.73m*2 Low >60.0 [facility] Comment on above: Result Comment: Calc ulation based on the Chronic Kidney Disease Epidemiology Collaboration (CKD-EPI) equation refit without adjustment for race Performed By: #### L [id number], LAB15, [id number] ####Medical Transcriptionist: KYLE MURILLO ([id number])[facility] (SBHL[facility])[address] Glucose [Mass/Vol] 256 mg/dL High 70-100 [facility] Comment on above: Performed By: #### L [id number], LAB15, [id number] ####Medical Transcriptionist: KYLE MURILLO ([id number])[facility] (SBHL[facility])[address] Potassium [Moles/Vol] 3.8 mmol/L Normal 3.5-5.1 [facility] Comment on above: Performed By: #### L [id number], LAB15, [id number] ####Medical Transcriptionist: KYLE MURILLO ([id number])[facility] Sodium [Moles/Vol] 141 mmol/L Normal 135-145 [facility] Comment on above: Performed By: #### L [id number], LAB15, [id number] ####Medical Transcriptionist: KYLE MURILLO ([id number])[facility])[address] Urea nitrogen [Mass/Vol] 18 mg/dL Normal 9-20 [facility] Comment on above: Performed By: #### L [id number], LAB15, [id number] ####Medical Transcriptionist: KYLE MURILLO ([phone])[facility] (HLAB)[address] CBC W Auto Differential pane l (Bld)on 01-17-2024 Basophils (Bld) [#/Vol] 0.1 10*3/uL 0.0 - 0.2 10*3/uL [facility] Basophils/100 WBC (Bld) 0.8 % 0.0 - 2.0 % [facility] Eosinophils (Bld) [#/Vol] 0.2 10*3/uL 0.0 - 0.5 10*3/uL [facility] Eosinophils/100 WBC (Bld) 2.4 % 0.0 - 6.0 % [facility] Erythrocyte distribution width (RBC) [Ratio] 13.6 % 11.5 - 15.0 % [facility] Hematocrit (Bld) [Volume fraction] 43.8 % 40.0 - 52.0 % [facility] Hemoglobin (Bld) [Mass/Vol] 14.5 g/dL 13.0 - 18.0 g/dL [facility] Immature granulocytes (Bld) [#/Vol] 0.0 10*3/uL NINF - 0.1 10*3/uL [facility] Immature granulocytes/100 WBC (Bld) 0.2 % 0.0 - 2.0 % [facility] Interpretation and review of laboratory results Abnormal [facility] Lymphocytes (Bld) [#/Vol] 2.9 10*3/uL 1.0 - 4.3 10*3/uL [facility] Lymphocytes/100 WBC (Bld) 45.6 % High 15.0 - 45.0 % [facility] MCH (RBC) [Entitic mass] 28.5 pg 26.0 - 34.0 pg [facility] MCHC (RBC) [Mass/Vol] 33.1 % 30.5 - 36.0 % [facility] MCV (RBC) [Entitic vol] 86.1 fL 77.0 - 99.0 fL [facility] Monocytes (Bld) [#/Vol] 0.4 10*3/uL 0.0 - 0.9 10*3/uL [facility] Monocytes/100 WBC (Bld) 6.3 % 5.0 - 13.0 % [facility] Neutrophils (Bld) [#/Vol] 2.9 10*3/uL 1.8 - 7.5 10*3/uL [facility] Neutrophils/100 WBC (Bld) 44.7 % 38.0 - 82.0 % [facility] Nucleated RBC/100 WBC (Bld) [Ratio] 0.0 % [facility] Platelet mean volume (Bld) [Entitic vol] 11.6 fL 9.0 - 12.7 fL [facility] Platelets (Bld) [#/Vol] 152 10*3/uL 140 - 440 10*3/uL [facility] RBC (Bld) [#/Vol] 5.09 10*6/uL 4.40 - 5.9 0 10*6/uL [facility] WBC (Bld) [#/Vol] 6.4 10*3/uL 3.6 - 10.7 10*3/uL [facility] CBC WITH AUTO DIFFERENTIALon 01-17-2024 Basophils (Bld) [#/Vol] 0.1 10*3/uL Normal 0.0-0.2 [facility] Comment on above: Performed By: #### L [id number] ####Medical Transcriptionist: KYLE MURILLO ([id number])[facility] [place] (SBHLAB)[address] Basophils/100 WBC (Bld) 0.8 % Normal 0.0-2.0 [facility] Comment on above: Performed By: #### L [id number] ####Medical Transcriptionist: KYLE MURILLO ([id number])[facility] [place] (SBHLAB)[address] Eosinophils (Bld) [#/Vol] 0.2 10*3/uL Normal 0.0-0.5 [facility] Comment on above: Performed By: #### L [id number] ####Medical Transcriptionist: KYLE MURILLO ([id number])[facility] [place] (SBHL[facility])[address] Eosinophils/100 WBC (Bld) 2.4 % Normal 0.0-6.0 [facility] Comment on above: Performed By: #### L [id number] ####Medical Transcriptionist: KYLE MURILLO ([id number])[facility] [place] (SBHL[facility])[address] Erythrocyte distribution width (RBC) [Ratio] 13.6 % Normal 11.5-15.0 [facility] Comment on above: Performed By: #### L [id number] ####Medical Transcriptionist: KYLE MURILLO ([id number])[facility] [place] (SBHLAB)[address] Hematocrit (Bld) [Volume fraction] 43.8 % Normal 40.0-52.0 [facility] Comment on above: Performed By: #### L [id number] ####Medical Transcriptionist: KYLE GOSSHECTOR ([phone])[facility] Hemoglobin (Bld) [Mass/Vol] 14.5 g/dL Normal 13.0-18.0 [facility] Comment on above: Performed By: #### L [id number] ####Medical Transcriptionist: KYLE LIDIA ([id number])[facility] IMMATURE GRANS % 0.2 % Normal 0.0-2.0 [facility] Comment on above: Performed By: #### L [id number] ####Medical Transcriptionist: KYLE AGRAWALJOAO ([phone])[facility] ([facility])[address] [place] [address] IMMATURE GRANS ABSOLUTE 0.0 10*3/uL Normal <0.1 [facility] Comment on above: Performed By: #### L [id number] ####Medical Transcriptionist: KYLE GOSSHECTOR ([phone])[facility] ([facility])[address] [place] [address] Lymphocytes (Bld) [#/Vol] 2.9 10*3/uL Normal 1.0-4.3 [facility] Comment on above: Performed By: #### L [id number] ####Medical Transcriptionist: KYLE GOSSHECTOR ([id number])[facility] Lymphocytes/100 WBC (Bld) 45.6 % High 15.0-45.0 [facility] Comment on above: Performed By: #### L [id number] ####Medical Transcriptionist: KYLE GOSSHECTOR ([phone])[facility] [place] [address] MCH (RBC) [Entitic mass] 28.5 pg Normal 26.0-34.0 [facility] Comment on above: Performed By: #### L [id number] ####Medical Transcriptionist: KYLE AGRAWALDebbyHECTOR ([id number])[facility] (SBHLAB)[address] MCHC 33.1 % Normal 30.5-36.0 [facility] Comment on above: Performed By: #### L [id number] ####Medical Transcriptionist: KYLE AGRAWALJOAO ([phone])[facility] (SBHLAB)[address] MCV (RBC) [Entitic vol] 86.1 fL Normal 77.0-99.0 [facility] Comment on above: Performed By: #### L [id number] ####Medical Transcriptionist: KYLE LIDIA ([id number])[facility] (SB[facility])[address] Monocytes (Bld) [#/Vol] 0.4 10*3/uL Normal 0.0-0.9 [facility] Comment on above: Performed By: #### L [id number] ####Medical Transcriptionist: KYLE GOSSHECTOR ([phone])[facility] (SBHLAB)[address] Monocytes/100 WBC (Bld) 6.3 % Normal 5.0-13.0 [facility] Comment on above: Performed By: #### L [id number] ####Medical Transcriptionist: KYLE GOSSHECTOR ([phone])[facility] (SBHLAB)[address] NEUTROPHILS ABSOLUTE 2.9 10*3/uL Normal 1.8-7.5 [facility] Comment on above: Performed By: #### L [id number] ####Medical Transcriptionist: KYLE GOSSHECTOR ([phone])[facility] [place] (SB[facility])[address] Neutrophils/100 WBC (Bld) 44.7 % Normal 38.0-82.0 [facility] Comment on above: Performed By: #### L [id number] ####Medical Transcriptionist: KYLE MURILLO ([id number])[facility] (SBHLAB)[address] NRBC 0.0 /100 WBCs Normal 0.0-2.0 [facility] Comment on above: Performed By: #### L [id number] ####Medical Transcriptionist: KYLE MURILLO ([phone])[facility] [place] (SB[facility])[address] Platelet mean volume (Bld) [Entitic vol] 11.6 fL Normal 9.0-12.7 [facility] Comment on above: Performed By: #### L [id number] ####Medical Transcriptionist: KYLE MURILLO ([phone])[facility] [place] (SBHLAB)[address] Platelets (Bld) [#/Vol] 152 10*3/uL Normal 140-440 [facility] Comment on above: Performed By: #### L [id number] ####Medical Transcriptionist: KYLE MURILLO ([id number])[facility] [place] (SBHLAB)[address] RBC (Bld) [#/Vol] 5.09 10*6/uL Normal 4.40-5.90 [facility] Comment on above: Performed By: #### L [id number] ####Medical Transcriptionist: KYLE MURILLO ([phone])[facility] [place] (SBHLAB)[address] WBC (Bld) [#/Vol] 6.4 10*3/uL Normal 3.6-10.7 [facility] Comment on above: Performed By: #### L [id number] ####Medical Transcriptionist: KYLE MURILLO ([id number])[facility] [place] (SBHLAB)[address] ED Provider Noteon 08-22-202 4 ED Provider Note Normal [facility] NT PRO BNPon 01-17-2024 Natriuretic peptide B (Bld) [Mass/Vol] 1340 pg/mL High <20-300 [facility] Comment on above: Performed By: #### L [id number], LAB15, [id number] ####Medical Transcriptionist: KYLE MURILLO ([id number])[facility] (SBHLAB)[address] TROPONIN, WITH SERIAL REFLEX on 01-17-2024 Troponin I.cardiac [Mass/Vol] 0.193 ng/mL Critically high <0.034 [facility] Comment on above: Result Comment: SUNNI Sidhu COMMENTS:Patients with high levels of Biotin oral intake (ie >5 mg/day) may have falsely decreased Troponin levels. Performed By: #### L [id number], LAB15, [id number] ####Medical Transcriptionist: KYLE MURILLO ([phone])[facility] (SBHLAB)[address] [place] [address] XR Chest Single viewon 01-16 1. No focal infiltrates. 2. Diffuse miliary pattern in the lung morrow. This is nonspecific but may indicate histoplasmosis among other entities. Report Dictated on Electronically Signed By: Asher Santos MD Electronically Signed Date/Time: 01/17/2024 11:51 PM EDT [facility] Patient Name: JORGE SALAMANCA : 1945 Exam Date/Time: 01/17/2024 23:47 Procedure: XR CHEST 1 VIEW Ordering Provider: ROBLEDO VISHNU Reason For Exam: acute chest pain CLINICAL INFORMATION: Chest pain. Portable view of the chest at 2340 hours is provided without comparison. FINDINGS: The cardiac silhouette and mediastinum are within normal limits. There are no focal infiltrates. However, tiny nodular densities are noted diffusely (miliary pattern). The visualized bones and soft tissues are grossly unremarkable. [facility] Asher Santos MD - 01/17/2024 Patient Name: JORGE SALAMANCA : 1945 Exam Date/Time: 01/17/2024 23:47 Procedure: XR CHEST 1 VIEW Ordering Provider: ROBLEDO VISHNU Reason For Exam: acute chest pain CLINICAL INFORMATION: Chest pain. Portable view of the chest at 2340 hours is provided without comparison. FINDINGS: The cardiac silhouette and mediastinum are within normal limits. There are no focal infiltrates. However, tiny nodular densities are noted diffusely (miliary pattern). The visualized bones and soft tissues are grossly unremarkable. IMPRESSION: 1. No focal infiltrates. 2. Diffuse miliary pattern in the lung morrow. This is nonspecific but may indicate histoplasmosis among other entities. Report Dictated on Electronically Signed By: Asher Santos MD Electronically Signed Date/Time: 01/17/2024 11:51 PM EDT [facility] Radiology Study observation (narrative) [facility] XR Chest Single viewOrdered By: Asher Santos on 01-17-2024 [facility] Work Phone: CNOVon 12-13-2023 CNOV Office Visit (FPDOYL) JORGE SALAMANCA ([id number]) 1945 Date Time Provider Department 12/13/23 10:15 AM ERIC NICOLAS FPDOYL During your visit today, we recorded the following information about you: Temperature Pulse Blood pressure Weight 97.5 degrees 56/minute 110/68 84.4 kg Height 1.676 m Riya Miranda 12/18/2023 3:11 PM Signed [facility] DO [address] [place] [address] Date of Evaluation: 12/13/2023 Patient Name: Jorge Salamanca : 1945 Chief Complaint: Patient presents with: F/U Diabetes 6 Month Lab AND Test Results: Patient had blood work prior to today's appointment Hypertension Knee Pain: Wanting a referral for this Nursing Intake: There are no exam notes on file for this visit. Subjective Mr. Salamanca is a 78 year old male who presents with the following complaint(s): The history is provided by the patient. No workforce planner was used. Hypertension This is a chronic problem. The current episode started more than 1 year ago. The problem is controlled. Pertinent negatives include no chest pain, headaches, palpitations or shortness of breath. Identifiable causes of hypertension include a thyroid problem. Right knee injury: No Left knee injury: No Right knee condition: Chronic Left knee condition: Chronic Right knee severity: Moderate Left knee severity: Moderate Right knee aggravating factors: Regular daily ambulation. Left knee aggravating factors: Regular daily ambulation. Diabetes He presents for his follow-up diabetic visit. He has type 2 diabetes mellitus. Pertinent negatives for hypoglycemia include no dizziness, headaches or nervousness/anxiousn ess. Pertinent negatives for diabetes include no chest pain, no fatigue and no weakness. Hypercholesterolemia This is a chronic problem. The current episode started more than 1 year ago. Pertinent negatives include no chest pain or shortness of breath. Thyroid Problem Presents for follow-up visit. Patient reports no anxiety, fatigue or palpitations. Review of Systems Constitutional: Negative for fatigue and unexpected weight change. HENT: Negative for nosebleeds. Eyes: Negative for redness and visual disturbance. Respiratory: Negative for apnea, cough and shortness of breath. Cardiovascular: Negative for chest pain, palpitations and leg swelling. Genitourinary: Negative for hematuria. Neurological: Negative for dizziness, weakness, light-headedness, numbness and headaches. Hematological: Does not bruise/bleed easily. Psychiatric/Behavior al: The patient is not nervous/anxious. PAST MEDICAL HISTORY Diagnosis Date Arthritis Backache Benign essential hypertension Diarrhea Hypothyroidism Idiopathic peripheral autonomic neuropathy Impotence of organic origin Malaise and fatigue Migraine with aura Mixed hyperlipidemia Obesity Pain in joint involving ankle and foot Type 2 diabetes mellitus without complication (HCC) History reviewed. No pertinent surgical history. History reviewed. No pertinent family history. Social History Tobacco Use Smoking status: Former Types: Cigarettes Quit date: 05/19/1975 Years since quittin.6 Smokeless tobacco: Never Vaping Use Vaping Use: Never used Substance Use Topics Alcohol use: Yes Comment: seldom Drug use: Never Current Outpatient Medications Medication Sig omega-3/dha/epa/fish oil (OMEGA-3 FISH OIL ORAL) Take by mouth. gabapentin (NEURONTIN) 300 mg capsule TAKE 2 CAPSULES IN THE MORNING AND 2 CAPSULES BY MOUTH IN THE EVENING amLODIPine (NORVASC) 5 mg tablet Take 1 tablet by mouth once daily. levothyroxine (SYNTHROID) 100 mcg tablet Take 1 tablet by mouth once daily. metoprolol succinate ER (TOPROL XL) 100 mg Take 1 tablet by mouth once daily. blood sugar diagnostic (ONETOUCH ULTRA TEST) test strip CHECK BLOOD SUGAR THREE TIMES DAILY cholecalciferol (VITAMIN D3) 5,000 unit tab Take 5,000 Units by mouth once daily. blood sugar diagnostic (ONETOUCH ULTRA TEST STRIP) test strip OneTouch Ultra Test strips Take 1 strip 4 times a day by miscell. route for 90 days. No current facility-administere d medications for this visit. I have confirmed and edited as necessary the past medical, family and social histories, HPI, and ROS obtained by others. Objective BP 110/68 Pulse 56 Temp 97.5 Ht 5' 6 (1.68m) Wt 186 lb (84.4kg) SpO2 97% BMI 30.04 kg/(m2). Physical Exam Vitals and nursing note reviewed. Constitutional: General: He is not in acute distress. Appearance: Normal appearance. He is not ill-appearing. HENT: Head: Normocephalic. Nose: Nose normal. Eyes: General: Lids are normal. Conjunctiva/sclera: Conjunctivae normal. Pupils: Pupils ar (more content not included)... Normal [facility] HEMOGLOBIN A1C (POC)on 12-12 HbA1c (Bld) [Mass fraction] 5.8 % Abnormal 4.3 - 5.6 % [facility] Comment on above: Location:[facility], [address] [place] [address], [facility] Point of care (POC) Hemoglobin A1c (HGBA1C) testing is intended to assess glucose control and provide a management tool for patients known to have diabetes and their healthcare providers. Target HGBA1C levels may depend on specific clinical circumstances. POC HGBA1C is not intended for use as a diagnostic or screening test; laboratory-based testing should be used for diagnostic purposes. The following information is supplemental and may not be applicable to specific diabetes management situations: The POC device sanitation superintendent provides a normal range of 4.2% to 6.5% for the HGBA1C POC test. However, the [place] [employer] guidelines indicate that patients with HGBA1C in the range of 5.7% to 6.4% are at increased risk for development of diabetes and that intervention by lifestyle modification may be beneficial. A HGBA1C level greater than or equal to 6.5% is considered diagnostic of diabetes, pending confirmatory testing. Use of HGBA1C testing to evaluate glucose control may not be appropriate for patients with hemoglobin variants or other conditions (e.g. anemia) that alter red blood cell lifespan. Interpretation and review of laboratory results Abnormal [facility] CBC W Auto Differential pane l (Bld)on 12-01-2023 Basophils (Bld) [#/Vol] 0.04 10*3/uL Normal <0.11 [facility] Comment on above: Order Comment: Speci men Type: BLOOD SPECIMEN Ordering Facility: [facility] Address: [address] [place] [address] Performed By: #### 5 7021-8 #### [facility] CLIA [id number] [address] [place] [address] [place] Basophils/100 WBC (Bld) 0.6 % Normal [facility] Comment on above: Order Comment: Speci men Type: BLOOD SPECIMEN Ordering Facility: [facility] Address: [address] [place] [address] Performed By: #### 5 7021-8 #### [facility] CLIA [id number] [address] [place] [address] [place] Differential cell count method Nom (Bld) Auto Normal [facility] Comment on above: Order Comment: Speci men Type: BLOOD SPECIMEN Ordering Facility: [facility] Address: [address] [place] [address] Performed By: #### 5 7021-8 #### [facility] CLIA [id number] [address] [place] [address] [place] Eosinophils (Bld) [#/Vol] 0.14 10*3/uL Normal <0.46 [facility] Comment on above: Order Comment: Speci men Type: BLOOD SPECIMEN Ordering Facility: [facility] Address: [address] [place] [address] Performed By: #### 5 7021-8 #### [facility] CLIA [id number] [address] [place] [address] [place] Eosinophils/100 WBC (Bld) 2.1 % Normal [facility] Comment on above: Order Comment: Speci men Type: BLOOD SPECIMEN Ordering Facility: [facility] Address: [address] [place] [address] Performed By: #### 5 7021-8 #### [facility] CLIA [id number] [address] [place] [address] [place] Erythrocyte distribution width (RBC) [Ratio] 13.9 % Normal 11.5-15.0 [facility] Comment on above: Order Comment: Speci men Type: BLOOD SPECIMEN Ordering Facility: [facility] Address: [address] [place] [address] Performed By: #### 5 7021-8 #### [facility] CLIA [id number] [address] [place] [address] [place] Hematocrit (Bld) [Volume fraction] 45.0 % Normal 39.0-51.0 [facility] Comment on above: Order Comment: Speci men Type: BLOOD SPECIMEN Ordering Facility: [facility] Address: [address] [place] [address] Performed By: #### 5 7021-8 #### [facility] CLIA [id number] [address] [place] [address] [place] Hemoglobin (Bld) [Mass/Vol] 14.8 g/dL Normal 13.0-17.0 [facility] Comment on above: Order Comment: Speci men Type: BLOOD SPECIMEN Ordering Facility: [facility] Address: [address] [place] [address] Performed By: #### 5 7021-8 #### [facility] CLIA [id number] [address] [place] [address] [place] Immature granulocytes (Bld) [#/Vol] 10*3/uL Normal <0.10 [facility] Comment on above: Order Comment: Speci men Type: BLOOD SPECIMEN Ordering Facility: [facility] Address: [address] [place] [address] Performed By: #### 5 7021-8 #### [facility] CLIA [id number] [address] [place] [address] [place] Immature granulocytes/100 WBC (Bld) 0.3 % Normal [facility] Comment on above: Order Comment: Speci men Type: BLOOD SPECIMEN Ordering Facility: [facility] Address: [address] [place] [address] Performed By: #### 5 7021-8 #### [facility] CLIA [id number] [address] [place] [address] [place] Lymphocytes (Bld) [#/Vol] 3.10 10*3/uL Normal 1.00-4.00 [facility] Comment on above: Order Comment: Speci men Type: BLOOD SPECIMEN Ordering Facility: [facility] Address: [address] [place] [address] Performed By: #### 5 7021-8 #### [facility] CLIA [id number] [address] [place] [address] [place] Lymphocytes/100 WBC (Bld) 47.5 % Normal [facility] Comment on above: Order Comment: Speci men Type: BLOOD SPECIMEN Ordering Facility: [facility] Address: [address] [place] [address] Performed By: #### 5 7021-8 #### [facility] CLIA [id number] [address] [place] [address] [place] MCH (RBC) [Entitic mass] 28.6 pg Normal 26.0-34.0 [facility] Comment on above: Order Comment: Speci men Type: BLOOD SPECIMEN Ordering Facility: [facility] Address: [address] [place] [address] Performed By: #### 5 7021-8 #### [facility] CLIA [id number] [address] [place] [address] [place] MCHC (RBC) [Mass/Vol] 32.9 g/dL Normal 30.5-36.0 [facility] Comment on above: Order Comment: Speci men Type: BLOOD SPECIMEN Ordering Facility: [facility] Address: [address] [place] [address] Performed By: #### 5 7021-8 #### [facility] CLIA [id number] [address] [place] [address] [place] MCV (RBC) [Entitic vol] 86.9 fL Normal 80.0-100.0 [facility] Comment on above: Order Comment: Speci men Type: BLOOD SPECIMEN Ordering Facility: [facility] Address: [address] [place] [address] Performed By: #### 5 7021-8 #### [facility] CLIA [id number] [address] [place] [address] [place] Monocytes (Bld) [#/Vol] 0.40 10*3/uL Normal <0.87 [facility] Comment on above: Order Comment: Speci men Type: BLOOD SPECIMEN Ordering Facility: [facility] Address: [address] [place] [address] Performed By: #### 5 7021-8 #### [facility] CLIA [id number] [address] [place] [address] [place] Monocytes/100 WBC (Bld) 6.1 % Normal [facility] Comment on above: Order Comment: Speci men Type: BLOOD SPECIMEN Ordering Facility: [facility] Address: [address] [place] [address] Performed By: #### 5 7021-8 #### [facility] CLIA [id number] [address] [place] [address] [place] Neutrophils (Bld) [#/Vol] 2.83 10*3/uL Normal 1.45-7.50 [facility] Comment on above: Order Comment: Speci men Type: BLOOD SPECIMEN Ordering Facility: [facility] Address: [address] [place] [address] Performed By: #### 5 7021-8 #### [facility] CLIA [id number] [address] [place] [address] [place] Neutrophils/100 WBC (Bld) 43.4 % Normal [facility] Comment on above: Order Comment: Speci men Type: BLOOD SPECIMEN Ordering Facility: [facility] Address: [address] [place] [address] Performed By: #### 5 7021-8 #### [facility] CLIA [id number] [address] [place] [address] [place] Nucleated RBC (Bld) [#/Vol] 10*3/uL Normal <0.01 [facility] Comment on above: Order Comment: Speci men Type: BLOOD SPECIMEN Ordering Facility: [facility] Address: [address] [place] [address] Performed By: #### 5 7021-8 #### [facility] CLIA [id number] [address] [place] [address] [place] Nucleated RBC/100 WBC (Bld) [Ratio] 0.0 /100 WBC Normal [facility] Comment on above: Order Comment: Speci men Type: BLOOD SPECIMEN Ordering Facility: [facility] Address: [address] [place] [address] Performed By: #### 5 7021-8 #### [facility] CLIA [id number] [address] [place] [address] [place] Platelet mean volume (Bld) [Entitic vol] 12.0 fL Normal 9.0-12.7 [facility] Comment on above: Order Comment: Speci men Type: BLOOD SPECIMEN Ordering Facility: [facility] Address: [address] [place] [address] Performed By: #### 5 7021-8 #### [facility] CLIA [id number] [address] [place], [place] [id number] [facility] [place] Platelets (Bld) [#/Vol] 167 10*3/uL Normal 150-400 [facility] Comment on above: Order Comment: Speci men Type: BLOOD SPECIMEN Ordering Facility: [facility] Address: [address] [place], [place] [address] Performed By: #### 5 7021-8 #### [facility] CLIA [id number] [address] [place] [address] [place] RBC (Bld) [#/Vol] 5.18 10*6/uL Normal 4.20-6.00 [facility] Comment on above: Order Comment: Speci men Type: BLOOD SPECIMEN Ordering Facility: [facility] Address: [address] [place] [address] Performed By: #### 5 7021-8 #### [facility] CLIA [id number] [address] [place] [address] [place] [facility] WBC (Bld) [#/Vol] 6.53 10*3/uL Normal 3.70-11.00 [facility] Comment on above: Order Comment: Speci men Type: BLOOD SPECIMEN Ordering Facility: [facility] Address: [address] [place], [place] [address] Performed By: #### 5 7021-8 #### [facility] CLIA [id number] [address] [place] [address] [place] Comprehensive metabolic 2000 panelon 12-01-2023 Albumin [Mass/Vol] 4.1 g/dL Normal 3.2-5.0 [facility] Comment on above: Order Comment: Speci men Type: BLOOD SPECIMEN Ordering Facility: [facility] Address: [address] [place] [address] Performed By: #### 2 4323-8, 3016-3 #### [facility] CLIA [id number] [address] [place] [address] #### 08509-5 #### [facility] CLIA [id number] [address] [place] [id number] [facility] CLIA [id number] [address] [place] [id number] [place] ALP [Catalytic activity/Vol] 74 U/L Normal 45-117 [facility] Comment on above: Order Comment: Speci men Type: BLOOD SPECIMEN [facility] [facility] Address: [address] [place] [address] Performed By: #### 2 4323-8, 3016-3 #### [facility] CLIA [id number] [address] [place] [address] #### 78385-3 #### [facility] CLIA [id number] [address] [place], [place] [address]N LAB CLIA [id number] [address] [place] [address] ALT [Catalytic activity/Vol] 18 U/L Normal 13-61 [facility] Comment on above: Order Comment: Speci men Type: BLOOD SPECIMEN Ordering Facility: [facility] Address: [address] [place] [address] Result Comment: Resu lts may be falsely depressed after the administration of Sulfasalazine and/or Sulfapyridine. Performed By: #### 2 4323-8, 6-3 #### [facility] CLIA [id number] [address] [place] [address] [place] #### 57515-0 #### [facility] CLIA [id number] [address] [place], [place] [address] LAB CLIA [id number] [address] [place] [address] [place] Anion gap [Moles/Vol] 9 mmol/L Normal 5-16 [facility] Comment on above: Order Comment: Speci men Type: BLOOD SPECIMEN Ordering Facility: [facility] Address: [address] [place] [address] Performed By: #### 2 4323-8, 6-3 #### [facility] CLIA [id number] [address] [place] [address] [facility] [place] #### 34089-2 #### [facility] CLIA [id number] [address] [place], [place] [address] [facility] [place] [facility] CLIA [id number] [address] [place] [address] [place] AST [Catalytic activity/Vol] 23 U/L Normal 8-34 [facility] Comment on above: Order Comment: Speci men Type: BLOOD SPECIMEN Ordering Facility: [facility] Address: [address] [place] [address] Result Comment: Resu lts may be falsely depressed after the administration of Sulfasalazine and/or Sulfapyridine. Performed By: #### 2 4323-8, 3015-3 #### [facility] CLIA [id number] [address] [place] [address] [place] #### 54390-7 #### [facility] CLIA [id number] [address] [place], [place] [address] [facility] CLIA [id number] [address] [place] [address] [place] Bilirubin [Mass/Vol] 1.7 mg/dL High 0.2-1.0 [facility] Comment on above: Order Comment: Speci men Type: BLOOD SPECIMEN Ordering Facility: [facility] Address: [address] [place] [address] Performed By: #### 2 4323-8, 3015-3 #### [facility] CLIA [id number] [address] [place] [address] [place] #### 04195-2 #### [facility] CLIA [id number] [address] [place], [place] [address] [place] [facility] [place] [facility] CLIA [id number] [address] [place] [address] [place] Calcium [Mass/Vol] 9.4 mg/dL Normal 8.5-10.5 [facility] Comment on above: Order Comment: Speci men Type: BLOOD SPECIMEN Ordering Facility: [facility] Address: [address] [place], [place] [address] Performed By: #### 2 4323-8, 3016-3 #### [facility] CLIA [id number] [address] [place] [address] [place] #### 62536-9 #### [facility] CLIA [id number] [address] [place], [place] [address] [place] [facility] CLIA [id number] [address] [place] [address] [place] Chloride [Moles/Vol] 111 mmol/L High 98-107 [facility] Comment on above: Order Comment: Speci men Type: BLOOD SPECIMEN Ordering Facility: [facility] Address: [address] [place], [place] [address] Performed By: #### 2 4323-8, 3016-3 #### [facility] CLIA [id number] [address] [place] [address] [place] #### 07250-3 #### [facility] CLIA [id number] [address] [place], [place] [address] [place] [facility] [place] [facility] CLIA [id number] [address] [place] [address] [place] CO2 [Moles/Vol] 24 mmol/L Normal 21-32 [facility] Comment on above: Order Comment: Speci men Type: BLOOD SPECIMEN Ordering Facility: [facility] Address: [facility] [place] [address] Performed By: #### 2 4323-8, 6-3 #### [facility] CLIA [id number] [address] [place], [place] [address] [place] #### 08727-4 #### [facility] CLIA [id number] [address] [place], [place] [address] LAB CLIA [id number] [address] Creatinine [Mass/Vol] 1.91 mg/dL High 0.50-1.40 [facility] Comment on above: Order Comment: Speci men Type: BLOOD SPECIMEN Ordering Facility: [facility] Address: [address] [place] [address] Result Comment: Jeniffer ents receiving either N-Acetylcysteine (NAC) or Metamizole prior to venipuncture, may have falsely depressed results. Performed By: #### 2 4323-8, 6-3 #### [facility] CLIA [id number] [address] [address] #### 63562-9 #### [facility] CLIA [id number] [address] [place], [place] [address] LAB CLIA [id number] [address] [place] [address] Creatinine and Glomerular filtration rate.predicted panel (S/P/Bld) 36 mL/min/1.73m??? Low >=60 [facility] Comment on above: Order Comment: Speci men Type: BLOOD SPECIMEN Ordering Facility: [facility] Address: [address] [place] [address] Result Comment: Amaya mated Glomerular Filtration Rate (eGFR) is calculated using the 2020 CKD-EPI creatinine equation. This equation utilizes serum creatinine, sex, and age as parameters. The creatinine assay has traceable calibration to isotope dilution-mass spectrometry. Refer to KDIGO guidelines for clinical interpretation. In patients with unstable renal function, e.g. those with acute kidney injury, the eGFR may not accurately reflect actual GFR. Performed By: #### 2 4323-8, 6-3 #### [facility] CLIA [id number] [address] [address] #### 05999-0 #### [facility] CLIA [id number] [address] [place], [place] [address] [facility] [place] [facility] CLIA [id number] [address] [place] [address] [place] Glucose [Mass/Vol] 89 mg/dL Normal 70-100 [facility] Comment on above: Order Comment: Speci men Type: BLOOD SPECIMEN Ordering Facility: [facility] Address: [address] [place] [address] Result Comment: The [place] Diabetes Association (ADA) provides guidance for cutoff values for fasting glucose and random glucose. The ADA defines fasting as no caloric intake for at least 8 hours. Fasting plasma glucose results between 100 to 125 mg/dL indicate increased risk for diabetes (prediabetes). Fasting plasma glucose results greater than or equal to 126 mg/dL meet the criteria for diagnosis of diabetes. In the absence of unequivocal hyperglycemia, results should be confirmed by repeat testing. In a patient with classic symptoms of hyperglycemia or hyperglycemic crisis, random plasma glucose results greater than or equal to 200 mg/dL meet the criteria for diagnosis of diabetes. Reference: Standards of Medical Care in Diabetes 2016, [place] [employer]. Diabetes Care. 2016.39(Suppl 1). Results may be falsely elevated after the administration of Sulfapyridine. Results may be falsely depressed after the administration of Sulfasalazine. Performed By: #### 2 4323-8, 3016-3 #### [facility] CLIA [id number] [address] [address] #### 46157-8 #### [facility] CLIA [id number] [address] [place], [place] [address] [facility] [place] [facility] CLIA [id number] [address] [place] [address] [place] Potassium [Moles/Vol] 4.8 mmol/L Normal 3.5-5.1 [facility] Comment on above: Order Comment: Speci men Type: BLOOD SPECIMEN Ordering Facility: [facility] Address: [address] [place] [address] Performed By: #### 2 4323-8, 6-3 #### [facility] CLIA [id number] [address] [place] [id number] [place] #### 19531-2 #### [facility] CLIA [id number] [address] [place] [address] [facility] [place] [facility] CLIA [id number] [address] [place] [address] [place] Protein [Mass/Vol] 7.4 g/dL Normal 6.0-8.5 [facility] Comment on above: Order Comment: Speci men Type: BLOOD SPECIMEN Ordering Facility: [facility] Address: [facility] [place] [address] Performed By: #### 2 4323-8, 3015-3 #### [facility] CLIA [id number] [address] [place] [address] [place] #### 61144-8 #### [facility] CLIA [id number] [address] [place], [place] [address] [place] [facility] [place] [facility] CLIA [id number] [address] [place] [address] [place] Sodium [Moles/Vol] 144 mmol/L Normal 136-145 [facility] Comment on above: Order Comment: Speci men Type: BLOOD SPECIMEN Ordering Facility: [facility] Address: [facility] [place] [address] Performed By: #### 2 4323-8, 3015-3 #### [facility] CLIA [id number] [address] [place], [place] [address] [place] #### 49410-5 #### [facility] CLIA [id number] [address] [place] [address] [place] [facility] CLIA [id number] [address] [place] [address] [place] Urea nitrogen [Mass/Vol] 19 mg/dL Normal 7-26 [facility] Comment on above: Order Comment: Speci men Type: BLOOD SPECIMEN Ordering Facility: [facility] Address: [address] [place] [address] Performed By: #### 2 4323-8, 6-3 #### [facility] CLIA [id number] [address] [place] [address] STATES OF [facility] #### 59861-1 #### [facility] CLIA [id number] [address] [place], [place] [address] [facility] CLIA [id number] [address] [place], [place] [address] [place] [address] Lipid 1996 panelon 4 Cholesterol [Mass/Vol] 220 mg/dL High 0-199 [facility] Comment on above: Order Comment: Speci men Type: BLOOD SPECIMEN Ordering Facility: [facility] Address: [address] [place] [address] Result Comment: <200 mg/dL, Desirable 200-239 mg/dL, Borderline high >239 mg/dL, High Performed By: #### 2 4323-8, 6-3 #### [facility] CLIA [id number] [address] [place] [address] OF [facility] #### 28278-5 #### [facility] CLIA [id number] [address] [place], [place] [address] LAB CLIA [id number] [address] [place], [place] [address] [place] [address] Cholesterol in HDL [Mass/Vol] 37 mg/dL Low >40 [facility] Comment on above: Order Comment: Speci men Type: BLOOD SPECIMEN Ordering Facility: [facility] Address: [facility] [place] [address] Result Comment: 40-5 9 mg/dL, Acceptable >59 mg/dL, High: Negative risk factor for coronary heart disease <40 mg/dL, Low: Positive risk factor for coronary heart disease Performed By: #### 2 4323-8, 6-3 #### [facility] CLIA [id number] [address] [place] [address] [place] #### 80338-6 #### [facility] CLIA [id number] [address] [place], [place] [address] [facility] CLIA [id number] [address] [place] [address] [facility] Cholesterol in LDL [Mass/Vol] 162 mg/dL High 0-129 [facility] Comment on above: Order Comment: Speci men Type: BLOOD SPECIMEN Ordering Facility: [facility] Address: [address] [place] [address] Result Comment: <100 mg/dL, Optimal 100-129 mg/dL, Near optimal/above optimal 130-159 mg/dL, Borderline high 160-189 mg/dL, High >189 mg/dL, Very high Secondary prevention optimal LDL Cholesterol levels are recommended to be < 70 mg/dL Performed By: #### 2 4323-8, 3016-3 #### [facility] CLIA [id number] [address] [place] [address] OF [facility] #### 16677-6 #### [facility] CLIA [id number] [address] [place], [place] [address] [facility] CLIA [id number] [address] [place] [address] [facility] OF [place] Cholesterol in LDL/Cholesterol in HDL [Mass ratio] 4.38 {ratio} High <2.54 [facility] Comment on above: Order Comment: Speci men Type: BLOOD SPECIMEN Ordering Facility: [facility] Address: [address] [place] [address] Result Comment: Refmaria del carmen acuña: 1. National Cholesterol Education Program ATP III Guideline At-A-Glance Quick Desk Reference: National Heart, Lung, and Blood [place]. National Institutes of Health. 2001: NIH Publication No. 01-3305. 2. An International Atherosclerosis Society position paper: global recommendations for the management of dyslipidemia: executive summary, Atherosclerosis. 2014: 232(2):410-413. Performed By: #### 2 4323-8, 3 #### [facility] CLIA [id number] [address] [place] [address] [place] #### 34973-6 #### [facility] CLIA [id number] [address] [place] [address] [facility] [place] [facility] CLIA [id number] [address] [place] [address] [place] Cholesterol in VLDL [Mass/Vol] 21 mg/dL Normal <30 [facility] Comment on above: Order Comment: Speci men Type: BLOOD SPECIMEN Ordering Facility: [facility] Address: [address] [place] [address] Performed By: #### 2 4323-8, 3015-07 #### [facility] CLIA [id number] [address] [place], [place] [address] [facility] OF [place] #### 06700-2 #### [facility] CLIA [id number] [address] [place] [address] [place] [facility] CLIA [id number] [address] [place] [address] [place] Cholesterol non HDL [Mass/Vol] 183 mg/dL High <130 [facility] Comment on above: Order Comment: Speci men Type: BLOOD SPECIMEN Ordering Facility: [facility] Address: [address] [place] [address] Result Comment: <130 mg/dL, Optimal 130-159 mg/dL, Near optimal/above optimal 160-189 mg/dL, Borderline high 190-219 mg/dL, High >219 mg/dL, Very high Secondary prevention optimal non HDL Cholesterol levels are recommended to be <100 mg/dL Performed By: #### 2 4323-8, 3015-07 #### [facility] CLIA [id number] [address] [place] [address] [place] #### 53884-6 #### [facility] CLIA [id number] [address] [place] [address] [place] [facility] CLIA [id number] [address] [place] [address] [place] Cholesterol.total/Dai sterol in HDL [Mass ratio] 5.95 {ratio} High <5.10 [facility] Comment on above: Order Comment: Speci men Type: BLOOD SPECIMEN Ordering Facility: [facility] Address: [address] [place] [address] Performed By: #### 2 4323-8, 3016-3 #### [facility] CLIA [id number] [address] [place] [address] [place] #### 94893-8 #### [facility] CLIA [id number] [address] [place], [place] [address] LAB CLIA [id number] [facility] STATES [place] FASTING TIME 10 hrs Normal [facility] Comment on above: Order Comment: Speci men Type: BLOOD SPECIMEN Ordering Facility: [facility] Address: [address] [place] [address] Performed By: #### 2 4323-8, 3016-3 #### [facility] CLIA [id number] [address] [place] [address] [place] #### 39093-3 #### [facility] CLIA [id number] [address] [place], [place] [address] [place] [facility] CLIA [id number] [facility] [address] STATES [place] Triglyceride [Mass/Vol] 104 mg/dL Normal 30-149 [facility] Comment on above: Order Comment: Speci men Type: BLOOD SPECIMEN Ordering Facility: [facility] Address: [address] [place] [address] [place] [address] Result Comment: <150 mg/dL, Normal 150-199 mg/dL, Borderline high 200-499 mg/dL, High >499 mg/dL, Very high Patients receiving either N-Acetylcysteine (NAC) or Metamizole prior to venipuncture, may have falsely depressed results. Performed By: #### 2 4323-8, 3016-3 #### [facility] CLIA [id number] [address] [place] [address] [place] #### 66145-1 #### [facility] CLIA [id number] [address] [place], [place] [address] [place] [facility] CLIA [id number] [address] PSA/PROSTATE SPECIFIC ANTIGE N SCREENINGon 12-01-2023 Prostate specific Ag [Mass/Vol] 0.23 ng/mL Normal <2.60 [facility] Comment on above: Order Comment: Speci men Type: BLOOD SPECIMEN Ordering Facility: [facility] Address: [address] [place] [address] Result Comment: This is a new methodology for this marker. Tumor markers obtained from different assay methods cannot be used interchangeably. Expect results of this assay to run lower than the previous assay. It is recommended to re-baseline patients when changing to a new methodology. Performed By: #### P SAS1 #### [facility] CLIA [id number] [address] [place] [address] [place] TSH SerPl-aCncon 12-01-2023 TSH Qn 3.311 m[IU]/L Normal 0.358-3.740 [facility] Comment on above: Order Comment: Speci men Type: BLOOD SPECIMEN Ordering Facility: [facility] Address: [address] [place] [address] Result Comment: 3rd generation ultra sensitive TSH. Performed By: #### 2 4323-8, 3016-3 #### [facility] CLIA [id number] [address] [place] [address] [place] #### 03456-8 #### [facility] CLIA [id number] [address] [place], [place] [address] [place] [facility] CLIA [id number] [address] [place] [id number] [place] CBC (INCLUDES DIFF/PLT)on Basophils (Bld) [#/Vol] 0.04 10*3/uL Normal 0-200 [facility] Comment on above: Performed By: #### 1 7306, 1715, 6399, 83005 #### [facility] of [address], [address] [place] [address] Medical Transcriptionist: Christiano Ness MD Basophils/100 WBC (Bld) 0.6 % Normal [facility] Comment on above: Performed By: #### 1 7306, 1715, 6399, 70325 #### [facility] of [address], [address] [place] [address] Medical Transcriptionist: Christiano Ness MD Eosinophils (Bld) [#/Vol] 0.139 10*3/uL Normal 15-500 [facility] Comment on above: Performed By: #### 1 7306, 171, 63, 91517 #### [facility] of [address], [address] [place] [address] Medical Transcriptionist: Christiano Ness MD Eosinophils/100 WBC (Bld) 2.1 % Normal [facility] Comment on above: Performed By: #### 1 7306, 1715, 6399, 43317 #### [facility] of [place] [address] Medical Transcriptionist: Christiano Ness MD Erythrocyte distribution width (RBC) [Ratio] 14.6 % Normal 11.0-15.0 [facility] Comment on above: Performed By: #### 1 7306, 1715, 6399, 06263 #### [facility] of [place] [address] Medical Transcriptionist: Christiano Ness MD Hematocrit (Bld) [Volume fraction] 46.2 % Normal 38.5-50.0 [facility] Comment on above: Performed By: #### 1 7306, 1715, 6399, 51225 #### [facility] of [address], [address] [place] [address] Medical Transcriptionist: Christiano Ness MD Hemoglobin (Bld) [Mass/Vol] 14.8 g/dL Normal 13.2-17.1 [facility] Comment on above: Performed By: #### 1 7306, 1715, 6399, 68246 #### [facility] of [address], [address] [place] [address] Medical Transcriptionist: Christiano Ness MD Lymphocytes (Bld) [#/Vol] 3.214 10*3/uL Normal 850-3900 [facility] Comment on above: Performed By: #### 1 7306, 1715, 6399, 56173 #### [facility] of [place] [address] Medical Transcriptionist: Christiano Ness MD Lymphocytes/100 WBC (Bld) 48.7 % Normal [facility] Comment on above: Performed By: #### 1 7306, 171, 63, 45983 #### [facility] of [place] [address] Medical Transcriptionist: Christiano Ness MD MCH (RBC) [Entitic mass] 28.2 pg Normal 27.0-33.0 [facility] Comment on above: Performed By: #### 1 7306, 171, 6399, 72515 #### [facility] of [place] [address] Medical Transcriptionist: Christiano Ness MD MCHC (RBC) [Mass/Vol] 32.0 g/dL Normal 32.0-36.[address] [facility] Comment on above: Performed By: #### 1 7306, 171, 6399, 77383 #### [facility] of [place] [address] Medical Transcriptionist: Christiano Ness MD MCV (RBC) [Entitic vol] 88.0 fL Normal 80.0-100.0 [facility] Comment on above: Performed By: #### 1 7306, 171, 6399, 73784 #### [facility] of [address] [place] [address] Medical Transcriptionist: Christiano Ness MD Monocytes (Bld) [#/Vol] 0.429 10*3/uL Normal 200-950 [facility] Comment on above: Performed By: #### 1 7306, 1715, 6399, 62790 #### [facility] of [address], [address] [place] [address] Medical Transcriptionist: Christiano Ness MD Monocytes/100 WBC (Bld) 6.5 % Normal [facility] Comment on above: Performed By: #### 1 7306, 171, 6399, 93484 #### [facility] of [place] [address] Medical Transcriptionist: Christiano Ness MD Neutrophils (Bld) [#/Vol] 2.779 10*3/uL Normal 6058-4067 [facility] Comment on above: Performed By: #### 1 7306, 171, 63, 23356 #### [facility] of [address], [address] [place] [address] Medical Transcriptionist: Christiano Ness MD Neutrophils/100 WBC (Bld) 42.1 % Normal [facility] Comment on above: Performed By: #### 1 7306, 171, 6399, 51813 #### [facility] of [place] [address] Medical Transcriptionist: Christiano Ness MD Platelet mean volume (Bld) [Entitic vol] 10.8 fL Normal 7.5-12.5 [facility] Comment on above: Performed By: #### 1 7306, 1715, 6399, 51569 #### [facility] of [place] [address] Medical Transcriptionist: Christiano Ness MD Platelets (Bld) [#/Vol] 174 10*3/uL Normal 140-400 [facility] Comment on above: Performed By: #### 1 7306, 171, 6399, 86127 #### [facility] of [address], [address] [place] [address] Medical Transcriptionist: Christiano Ness MD RBC (Bld) [#/Vol] 5.25 10*6/uL Normal 4.20-5.80 [facility] Comment on above: Performed By: #### 1 7306, 1715, 6399, [id number] #### [facility] of [address], [address] [place] [address] Medical Transcriptionist: Christiano Ness MD WBC (Bld) [#/Vol] 6.6 10*3/uL Normal 3.8-10.8 [facility] Comment on above: Performed By: #### 1 7306, 171, 6399, 69331 #### [facility] of [address], [address] [place] [address] Medical Transcriptionist: Christiano Ness MD PROTEIN, TOTAL W/CREAT, RAND OM URINEon 10-08-2023 Creatinine (U) [Mass/Vol] 98 mg/dL Normal 20-320 [facility] Comment on above: Performed By: #### 1 7306, 1715, 6399, 18327 #### [facility] of [address], [address] [place] [address] Medical Transcriptionist: Christiano Ness MD Protein (U) [Mass/Vol] 29 mg/dL High 5-25 [facility] Comment on above: Performed By: #### 1 7306, 1715, 6399, 79750 #### [facility] of [address], [address] [place] [address] Medical Transcriptionist: Christiano Ness MD PROTEIN/CREATININE RATIO 296 mg/g creat High 25-148 [facility] Comment on above: Performed By: #### 1 7306, 1715, 6399, 98572 #### [facility] of [address], [address] [place] [address] Medical Transcriptionist: Christiano Ness MD PROTEIN/CREATININE RATIO 0.296 mg/mg creat High 0.025-0.148 [facility] Comment on above: Performed By: #### 1 7306, 1715, 6399, 78304 #### [facility] [place] [address] Medical Transcriptionist: Christiano Ness MD PTH, INTACT WITHOUT CALCIUMo 10-08-2023 PARATHYROID HORMONE, INTACT 203 pg/mL High 16-77 [facility] Comment on above: Result Comment: Interpretive Guide Intact PTH Calcium ------- Normal Parathyroid Normal Normal Hypoparathyroidism Low or Low Normal Low Hyperparathyroidism Primary Normal or High High Secondary High Normal or Low Tertiary High High Non-Parathyroid Hypercalcemia Low or Low Normal High Performed By: #### 1 7306, 1715, 6399, 04213 #### [facility] [place] [address] Medical Transcriptionist: Christiano Ness MD RENAL FUNCTION PANEL 10-07 Albumin [Mass/Vol] 4.1 g/dL Normal 3.6-5.1 [facility] Comment on above: Performed By: #### 1 7306, 1715, 6399, 32391 #### [facility] [place] [address] Medical Transcriptionist: Christiano Ness MD Calcium [Mass/Vol] 8.5 mg/dL Low 8.6-10.3 [facility] Comment on above: Performed By: #### 1 7306, 1715, 6399, 40607 #### [facility] [place] [address] Medical Transcriptionist: Christiano Ness MD Chloride [Moles/Vol] 108 mmol/L Normal 98-110 [facility] Comment on above: Performed By: #### 1 7306, 1715, 6399, 68965 #### [facility] [place] [address] Medical Transcriptionist: Christiano Ness MD CO2 [Moles/Vol] 28 mmol/L Normal 20-32 [facility] Comment on above: Performed By: #### 1 7306, 1715, 6399, 49482 #### [facility] [place] [address] Medical Transcriptionist: Christiano Ness MD Creatinine [Mass/Vol] 2.09 mg/dL High 0.70-1.[address] [facility] Comment on above: Performed By: #### 1 7306, 1715, 6399, 98120 #### [facility] [place] [address] Medical Transcriptionist: Christiano Ness MD GFR/1.73 sq M.predicted among non-blacks MDRD (S/P/Bld) [Vol rate/Area] 32 mL/min/{1.73_m2} Low > OR = 60 [facility] Comment on above: Performed By: #### 1 7306, 171, 63, 73353 #### [facility] [address], [address] [place] [address] Medical Transcriptionist: Christiano Ness MD Glucose [Mass/Vol] 86 mg/dL Normal 65-99 [facility] Comment on above: Result Comment: Fasting reference interval Performed By: #### 1 7306, 171, 63, 56809 #### [facility] [place] [address] Medical Transcriptionist: Christiano Ness MD Phosphate [Mass/Vol] 4.9 mg/dL High 2.1-4.3 [facility] Comment on above: Performed By: #### 1 7306, 171, 63, 39546 #### [facility] of [place] [address] Medical Transcriptionist: Christiano Ness MD Potassium [Moles/Vol] 4.7 mmol/L Normal 3.5-5.[address] [facility] Comment on above: Performed By: #### 1 7306, 1715, 6399, 52268 #### [facility] of [address], [address] [place] [address] Medical Transcriptionist: Christiano Ness MD Sodium [Moles/Vol] 141 mmol/L Normal 135-146 [facility] Comment on above: Performed By: #### 1 7306, 1715, 6399, 48651 #### [facility] [address], [address] [place] [address] Medical Transcriptionist: Christiano Ness MD Urea nitrogen [Mass/Vol] 22 mg/dL Normal 7-25 [facility] Comment on above: Performed By: #### 1 7306, 1715, 6399, 58050 #### [facility] [address], [address] [place] [address] Medical Transcriptionist: Christiano Ness MD Urea nitrogen/Creatinine [Mass ratio] 11 mg/mg Normal 6-22 [facility] Comment on above: Performed By: #### 1 7306, 1715, 6399, 98089 #### [facility] [address], [address] [place] [address] Medical Transcriptionist: Christiano Ness MD VITAMIN D,25-OH,TOTAL,IAon 0 10-08-2023 VITAMIN D,25-OH,TOTAL,IA 36 ng/mL Normal 30-100 [facility] Comment on above: Result Comment: Kulwant min D Status 25-OH Vitamin D: Deficiency: <20 ng/mL Insufficiency: 20 - 29 ng/mL Optimal: > or = 30 ng/mL For 25-OH Vitamin D testing on patients on D2-supplementation and patients for whom quantitation of D2 and D3 fractions is required, the QuestAssureD(TM) 25-OH VIT D, (D2,D3), LC/MS/MS is recommended: order code 48155 (patients >2yrs). See Note 1 Note 1 For additional information, please refer to http://[email or web address].Promobucket/faq/HZM889 (This link is being provided for informational/ educational purposes only.) Performed By: #### 1 7306, 1715, 6399, 00990 #### [facility] [address], [address] [place] [address] Medical Transcriptionist: Christiano [place] 09-13-2023 HARSHAD Telephone (LALO) JORGE SALAMANCA ([id number]) 1945 M Date Time Provider Department 09/13/23 ERIC NICOLAS During your visit today, we recorded the following information about you: Nadia Conte 09/13/2023 11:57 AM Signed Pharmacy called and states [facility] does not fill Paxlovid so send to [facility] in [place], [place] Damir Ngo LPN 09/13/2023 2:01 PM Signed The patient called in and left a voicemail stating he received a call from our office an hour ago. Called patient back to advise his Paxlovid was sent to [facility] in [place]. Left message to call patient Damir Jeffrey LPN 09/13/2023 4:09 PM Signed Spoke with the patient who advised the Paxlovid tastes terrible and he is unable to tolerate the medication, states it causes him to vomit and he has no appetite and drinking minimal fluids due to nausea. Advised the patient stop the medication and I would let Dr. Nicolas know. The patient states he is having fatigue and chills but no shortness of breath or respiratory issues. Advised if he has any worsening of symptoms to please let the office know. Allergies As of Date: 09/13/2023 Noted Allergy Reaction BEE POLLEN 01/09/2019 4 - Hives COVID-19 VACC,MRNA(PFIZER)(PF ) 04/24/2022 5 - Intolerance 17 - Myalgia Comments: Numbness in hand and pain VENOM-HONEY BEE 01/09/2019 4 - Hives Date Reviewed: 11/13/2022 Reviewed by: Maribel Brooks LPN - Fully Assessed Reason for Visit: Medication Problem [65] Cmt: Paxlovid sent to mail order pharmacy and needs to go to [facility] Prescriptions as of 09/13/2023 - nirmatrelvir tablet 300 mg (150 mg x 2) and ritonavir tablet 100 mg in a dose pack (PAXLOVID) Administer TWO pink nirmatrelvir 150 mg tablets and ONE white ritonavir 100 mg tablet for a total of three tablets twice daily. - gabapentin (NEURONTIN) 300 mg capsule TAKE 2 CAPSULES IN THE MORNING AND 2 CAPSULES BY MOUTH IN THE EVENING - amLODIPine (NORVASC) 5 mg tablet Take 1 tablet by mouth once daily. - levothyroxine (SYNTHROID) 100 mcg tablet Take 1 tablet by mouth once daily. - metoprolol succinate ER (TOPROL XL) 100 mg Take 1 tablet by mouth once daily. - blood sugar diagnostic (ONETOUCH ULTRA TEST) test strip CHECK BLOOD SUGAR THREE TIMES DAILY - glimepiride (AMARYL) 1 mg tablet TAKE 1 TABLET BY MOUTH ONCE A DAY WITH DINNER - metFORMIN (GLUCOPHAGE) 1,000 mg tablet Take 1 tablet by mouth daily with breakfast. - meloxicam (MOBIC) 15 mg tablet - cholecalciferol (VITAMIN D3) 5,000 unit tab Take 5,000 Units by mouth once daily. - cyanocobalamin (VITAMIN B-12) 100 mcg tab Take 50 mcg by mouth. - blood sugar diagnostic (ONETOUCH ULTRA TEST STRIP) test strip OneTouch Ultra Test strips Take 1 strip 4 times a day by miscell. route for 90 days. Problem List As Of Date 09/13/2023 Noted Resolved Benign essential hypertension [I10] Arthritis [M19.90] Hypothyroidism [E03.9] Mixed hyperlipidemia [E78.2] Type 2 diabetes mellitus with diabetic neuropat* Screening for prostate cancer [Z12.5] 12/28/2020 Bilateral chronic knee pain [M25.561, M25.562, *04/24/2022 Kidney stones [N20.0] 04/24/2022 Perforated ear drum, left [H72.92] 06/10/2020 Diabetes mellitus type II, non insulin dependen*04/24/2022 Hematuria, microscopic [R31.29] 01/09/2019 Encounter Status:Closed by DAMIR JEFFREY on 09/13/23 [facility] 09-11-2023 HARSHAD Telephone (KARYNADOYL) JORGE SALAMANCA ([id number]) 1945 M Date Time Provider Department 09/11/23 ERIC NICOLAS During your visit today, we recorded the following information about you: Damir Jeffrey LPN 09/11/2023 11:38 AM Signed The patients Tabatha called in and left a voicemail stating the patient tested positive for Covid yesterday and is requesting a script for Paxlovid. Please advise [facility] Eric Nicolas DO 09/11/2023 2:07 PM Signed sent Damir Jeffrey LPN 09/11/2023 2:28 PM Signed Script re pended to be sent to [facility] in [place]. Allergies As of Date: 09/11/2023 Noted Allergy Reaction BEE POLLEN 01/09/2019 4 - Hives COVID-19 VACC,MRNA(PFIZER)(PF ) 04/24/2022 5 - Intolerance 17 - Myalgia Comments: Numbness in hand and pain VENOM-HONEY BEE 01/09/2019 4 - Hives Date Reviewed: 11/13/2022 Reviewed by: Maribel Brooks LPN - Fully Assessed Reason for Visit: Patient Question [1477] Cmt: Covid positive Order(s):nirmatrelvi r tablet 300 mg (150 mg x 2) and ritonavir tablet 100 mg in a dose pack (PAXLOVID)Administer TWO pink nirmatrelvir 150 mg tablets and ONE white ritonavir 100 mg tablet for a total of three tablets twice daily.Disp: 30 tabletRfl: 0 Prescriptions as of 09/12/2023 - nirmatrelvir tablet 300 mg (150 mg x 2) and ritonavir tablet 100 mg in a dose pack (PAXLOVID) Administer TWO pink nirmatrelvir 150 mg tablets and ONE white ritonavir 100 mg tablet for a total of three tablets twice daily. - gabapentin (NEURONTIN) 300 mg capsule TAKE 2 CAPSULES IN THE MORNING AND 2 CAPSULES BY MOUTH IN THE EVENING - amLODIPine (NORVASC) 5 mg tablet Take 1 tablet by mouth once daily. - levothyroxine (SYNTHROID) 100 mcg tablet Take 1 tablet by mouth once daily. - metoprolol succinate ER (TOPROL XL) 100 mg Take 1 tablet by mouth once daily. - blood sugar diagnostic (ONETOUCH ULTRA TEST) test strip CHECK BLOOD SUGAR THREE TIMES DAILY - glimepiride (AMARYL) 1 mg tablet TAKE 1 TABLET BY MOUTH ONCE A DAY WITH DINNER - metFORMIN (GLUCOPHAGE) 1,000 mg tablet Take 1 tablet by mouth daily with breakfast. - meloxicam (MOBIC) 15 mg tablet - cholecalciferol (VITAMIN D3) 5,000 unit tab Take 5,000 Units by mouth once daily. - cyanocobalamin (VITAMIN B-12) 100 mcg tab Take 50 mcg by mouth. - blood sugar diagnostic (ONETOUCH ULTRA TEST STRIP) test strip OneTouch Ultra Test strips Take 1 strip 4 times a day by miscell. route for 90 days. Problem List As Of Date 09/11/2023 Noted Resolved Benign essential hypertension [I10] Arthritis [M19.90] Hypothyroidism [E03.9] Mixed hyperlipidemia [E78.2] Type 2 diabetes mellitus with diabetic neuropat* Screening for prostate cancer [Z12.5] 12/28/2020 Bilateral chronic knee pain [M25.561, M25.562, *04/24/2022 Kidney stones [N20.0] 04/24/2022 Perforated ear drum, left [H72.92] 06/10/2020 Diabetes mellitus type II, non insulin dependen*04/24/2022 Hematuria, microscopic [R31.29] 01/09/2019 Prescriptions ordered this encounter Disp Refills Start End NIRMATRELVIR 300 MG (150 MG X2)-INOCENCIO* 30 t* 0 09/11/2023 09/11/2023 Sig: Administer TWO pink nirmatrelvir 150 mg tablets and ONE white ritonavir 100 mg tablet for a total of three tablets twice daily. NIRMATRELVIR 300 MG (150 MG X2)-INOCENCIO* 30 t* 0 09/11/2023 09/16/2023 Sig: Administer TWO pink nirmatrelvir 150 mg tablets and ONE white ritonavir 100 mg tablet for a total of three tablets twice daily. Medications Discontinued During This Encounter Prescriptions - nirmatrelvir tablet 300 mg (150 mg x 2) and ritonavir tablet 100 mg in a dose pack (PAXLOVID) (Discontinued) Administer TWO pink nirmatrelvir 150 mg tablets and ONE white ritonavir 100 mg tablet for a total of three tablets twice daily. Encounter Status:Closed by DAMIR JEFFREY on 09/12/23 [facility] HEMOGLOBIN A1C (POC)on 11-13 HbA1c (Bld) [Mass fraction] 5.8 % 4.2 - 5.6 % [facility] PSA/PROSTSPECAG SCRNon 04-25 Prostate specific Ag [Mass/Vol] 0.16 ng/mL 0.00 - 3.90 ng/mL [facility] HbA1c (Bld)on 04-24-2022 Average glucose Estimated from glycated hemoglobin (Bld) [Mass/Vol] 108 mg/dL [facility] HbA1c (Bld) [Mass fraction] 5.4 % 4.3 - 5.6 % [facility] Lipid 1996 panelon Cholesterol [Mass/Vol] 208 mg/dL High <200 mg/dL [facility] Cholesterol in HDL [Mass/Vol] 39 mg/dL Low >39 mg/dL [facility] Cholesterol in LDL [Mass/Vol] 147 mg/dL High <100 mg/dL [facility] Cholesterol in LDL/Cholesterol in HDL [Mass ratio] 3.77 {ratio} High <2.54 [facility] Cholesterol in VLDL [Mass/Vol] 22 mg/dL <30 mg/dL [facility] Cholesterol non HDL [Mass/Vol] 169 mg/dL High <130 mg/dL [facility] Cholesterol.total/Dai sterol in HDL [Mass ratio] 5.33 {ratio} High <5.10 [facility] Fasting Time 12 hrs [facility] Triglyceride [Mass/Vol] 111 mg/dL <150 mg/dL [facility] ALBUMIN/CREAT RATIO D URon 07-14-2021 Albumin Unsp time DL <= 20 mg/L (U) [Mass/Time] 55.8 mg/L [facility] Albumin/Creatinine (U) [Mass ratio] 24 mg/g <30 mg/g [facility] Creatinine (U) [Mass/Vol] 229.2 mg/dL 46.8 - 314.5 mg/dL [facility] HEP C AB IA W/CONF SCRNon HCV Ab Ql (S) Negative Negative [facility] HGB A1Con 07-14-2021 Average glucose Estimated from glycated hemoglobin (Bld) [Mass/Vol] 160 mg/dL [facility] HbA1c (Bld) [Mass fraction] 7.2 % High 4.3 - 5.6 % [facility] Laboratory - Chemistry and C hemistry - challengeon 01-03-2021 Prostate specific Ag [Mass/Vol] 0.17 ng/mL 0.00 - 3.90 ng/mL [facility] CBC W Auto Differential pane l (Bld)on 12-31-2020 Abs Immature Gran <0.03 <0.10 k/uL [facility] Basophils (Bld) [#/Vol] 0.05 10*3/uL <0.11 k/uL [facility] Basophils/100 WBC (Bld) 0.8 % [facility] Differential cell count method Nom (Bld) Auto [facility] Eosinophils (Bld) [#/Vol] 0.18 10*3/uL <0.46 k/uL [facility] Eosinophils/100 WBC (Bld) 2.8 % [facility] Erythrocyte distribution width (RBC) [Ratio] 13.4 % 11.5 - 15.0 % [facility] Hematocrit (Bld) [Volume fraction] 44.7 % 39.0 - 51.0 % [facility] Hemoglobin (Bld) [Mass/Vol] 14.2 g/dL 13.0 - 17.0 g/dL [facility] Immature Gran % 0.3 % [facility] Lymphocytes (Bld) [#/Vol] 3.08 10*3/uL 1.00 - 4.00 k/uL [facility] Lymphocytes/100 WBC (Bld) 48.1 % [facility] MCH (RBC) [Entitic mass] 28.7 pg 26.0 - 34.0 pg [facility] MCHC (RBC) [Mass/Vol] 31.8 g/dL 30.5 - 36.0 g/dL [facility] MCV (RBC) [Entitic vol] 90.3 fL 80.0 - 100.0 fL [facility] Monocytes (Bld) [#/Vol] 0.43 10*3/uL <0.87 k/uL [facility] Monocytes/100 WBC (Bld) 6.7 % [facility] Neutrophils (Bld) [#/Vol] 2.64 10*3/uL 1.45 - 7.50 k/uL [facility] Neutrophils/100 WBC (Bld) 41.3 % [facility] Nucleated RBC (Bld) [#/Vol] 10*3/uL <0.01 k/uL [facility] Nucleated RBC/100 WBC (Bld) [Ratio] 0.0 /100 WBC 0.0 /100 WBC [facility] Platelet mean volume (Bld) [Entitic vol] 11.5 fL 9.0 - 12.7 fL [facility] Platelets (Bld) [#/Vol] 184 10*3/uL 150 - 400 k/uL [facility] RBC (Bld) [#/Vol] 4.95 10*6/uL 4.20 - 6.0 0 m/uL [facility] WBC (Bld) [#/Vol] 6.40 10*3/uL 3.70 - 11. 00 k/uL [facility] Comprehensive metabolic 2000 panelon 12-31-2020 Albumin [Mass/Vol] 4.6 g/dL 3.9 - 4.9 g/dL [facility] ALP [Catalytic activity/Vol] 66 U/L 38 - 113 U/L [facility] ALT With P-5'-P [Catalytic activity/Vol] 15 U/L 10 - 54 U/L [facility] Anion gap [Moles/Vol] 11 mmol/L 9 - 18 mmol/L [facility] AST With P-5'-P [Catalytic activity/Vol] 20 U/L 14 - 40 U/L [facility] Bilirubin [Mass/Vol] 1.0 mg/dL 0.2 - 1 .3 mg/dL [facility] Calcium [Mass/Vol] 8.9 mg/dL 8.5 - 10. 2 mg/dL [facility] Chloride [Moles/Vol] 108 mmol/L High 97 - 10 5 mmol/L [facility] CO2 [Moles/Vol] 23 mmol/L 22 - 30 mmol/L [facility] Creatinine [Mass/Vol] 1.86 mg/dL High 0.73 - 1.22 mg/dL [facility] GFR/1.73 sq M.predicted MDRD (S/P/Bld) [Vol rate/Area] 43 mL/min/{1.73_m2} [facility] GFR/1.73 sq M.predicted MDRD (S/P/Bld) [Vol rate/Area] 36 mL/min/{1.73_m2} [facility] Glucose [Mass/Vol] 93 mg/dL 74 - 99 mg/dL [facility] Potassium [Moles/Vol] 4.5 mmol/L 3.7 - 5.1 mmol/L [facility] Protein [Mass/Vol] 6.7 g/dL 6.3 - 8.0 g/dL [facility] Sodium [Moles/Vol] 142 mmol/L 136 - 144 mmol/L [facility] Urea nitrogen [Mass/Vol] 22 mg/dL 9 - 24 mg/dL [facility] Laboratory - Chemistry and C hemistry - challengeon 12-31-2020 Average glucose Estimated from glycated hemoglobin (Bld) [Mass/Vol] 123 mg/dL [facility] TSH Qn 2.370 m[IU]/L 0.270 - 4.200 uU/mL [facility] Cholesterol [Mass/Vol] 205 mg/dL High <200 mg/dL [facility] Cholesterol in HDL [Mass/Vol] 37 mg/dL Low >39 mg/dL [facility] Cholesterol in LDL [Mass/Vol] 143 mg/dL High <100 mg/dL [facility] Cholesterol in LDL/Cholesterol in HDL [Mass ratio] 3.86 {ratio} High <2.54 [facility] Cholesterol in VLDL [Mass/Vol] 25 mg/dL <30 mg/dL [facility] Cholesterol non HDL [Mass/Vol] 168 mg/dL High <130 mg/dL [facility] Cholesterol.total/Dai sterol in HDL [Mass ratio] 5.54 {ratio} High <5.10 [facility] Triglyceride [Mass/Vol] 124 mg/dL <150 mg/dL C [facility] Laboratory - Hematology and Cell countson 12-31-2020 HbA1c (Bld) [Mass fraction] 5.9 % High 4.3 - 5.6 % [facility] No Panel Informationon 12-31 Fasting Time 12 hrs [facility] Urinalysis complete panel (U )on 12-31-2020 Bacteria LM.HPF (Urine sed) [#/Area] None Seen None Seen /HPF [facility] Bilirubin Ql (U) Negative Negative [facility] Clarity (Unsp spec) Clear Clear [facility] Color (U) Yellow Yellow [facility] Epithelial cells LM.HPF (Urine sed) [#/Area] 0.6 /[HPF] [facility] Glucose Test strip (U) [Mass/Vol] Negative Negative [facility] Hemoglobin Ql (U) Negative Negative [facility] Hyaline casts (Urine sed) [#/Area] 1-3 /LPF Abnormal 0 /LPF [facility] Ketones Ql (U) Negative Negative [facility] Leukocyte esterase Test strip Ql (U) Negative Negative [facility] Nitrite Ql (U) Negative Negative [facility] pH (U) 5.5 [pH] 5.0 - 8.0 [facility] Protein (U) [Mass/Vol] Negative Negative [facility] RBC LM.HPF (Urine sed) [#/Area] 0-3 /HPF 0-3 /HPF [facility] Specific gravity (U) [Rel density] 1.022 1.005 - 1.030 [facility] Urobilinogen Ql (U) 0.2 EU/dL 0.2-1.0 EU/dL [facility] WBC LM.HPF (Urine sed) [#/Area] 6-10 /HPF Abnormal 0-5 /HPF [facility] CR Knee 3 Views Righton CR Knee 3 Views Right Patient Name: JORGE SALAMANCA Diagnostic Radiology Exam Date/Time 06/04/2019 12:54:05 EST Exam CR Knee 3 Views Right Ordering Physician ERIC NICOLAS Accession Number [id number] CPT4 Codes 76578 () Reason For Exam arthritis right knee Report Three views the right knee, 06/04/2019. Reason for examination: Right knee pain. Arthritis. COMPARISON: None available. FINDINGS: There is mild osteopenia. No fracture is identified. There is moderate to severe narrowing of the medial joint compartment right knee. There are tricompartmental osteophytes, most bulky in the patellofemoral compartment. There may be a small joint effusion. No destructive or erosive osseous process. 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 Report Dictated on Final Dictating Physician: MD TUCKER JOE M Signed Date and Time: 06/04/2019 1:02 pm Signed by: MD TUCKER JOE M Transcribed Date and Time: 06/04/2019 1:03 [facility] XR KNEE RIGHT (3 VIEWS)Order ed By: Eric Nicolas on 06-04-2019 Patient Name: JORGE SALAMANCA ---Diagnostic Radiology--- Exam Date/Time 06/04/2019 12:54:05 EST Exam CR Knee 3 Views Right Ordering Physician ERIC NICOLAS Accession Number [id number] CPT4 Codes 61937 () Reason For Exam arthritis right knee Report Three views the right knee, 06/04/2019. Reason for examination: Right knee pain. Arthritis. COMPARISON: None available. FINDINGS: There is mild osteopenia. No fracture is identified. There is moderate to severe narrowing of the medial joint compartment right knee. There are tricompartmental osteophytes, most bulky in the patellofemoral compartment. There may be a small joint effusion. No destructive or erosive osseous process. 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 Report Dictated on --- Final --- Dictating Physician: MD TUCKER JOE M Signed Date and Time: 06/04/2019 1:02 pm Signed by: MD TUCKER JOE M Transcribed Date and Time: 06/04/2019 1:03 [facility] Work Phone: [facility], [facility] Incoming Radiology Results From [facility] - 06/04/2019 1:03 PM EST Patient Name: JORGE SALAMANCA ---Diagnostic Radiology--- Exam Date/Time 06/04/2019 12:54:05 EST Exam CR Knee 3 Views Right Ordering Physician ERIC NICOLAS Accession Number [id number] CPT4 Codes 99890 () Reason For Exam arthritis right knee Report Three views the right knee, 06/04/2019. Reason for examination: Right knee pain. Arthritis. COMPARISON: None available. FINDINGS: There is mild osteopenia. No fracture is identified. There is moderate to severe narrowing of the medial joint compartment right knee. There are tricompartmental osteophytes, most bulky in the patellofemoral compartment. There may be a small joint effusion. No destructive or erosive osseous process. 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 Report Dictated on --- Final --- Dictating Physician: MD TUCKER JOE M Signed Date and Time: 06/04/2019 1:02 pm Signed by: MD TUCKER JOE M Transcribed Date and Time: 06/04/2019 1:03 [facility] Work Phone: US Retroperitoneal Completeo n 12-13-2018 US Retroperitoneal Complete Patient Name: JORGE SALAMANCA Ultrasound Exam Date/Time 12/13/2018 12:30:00 EDT Exam US Retroperitoneal Complete Ordering Physician ERIC NICOLAS Accession Number [id number] CPT4 Codes 63740 () Reason For Exam blood in urine Report RENAL ULTRASOUND: INDICATION: Hematuria COMPARISON: No prior studies are available for comparison. Sonographic images of the bilateral kidneys and bladder were obtained. The right kidney measures 10.3 x 4.7 x 4.8 cm. Parenchymal echotexture is normal. No focal lesions are seen. Multiple nonobstructing renal calculi are present. The left kidney measures 10.2 x 5.1 x 4.3 cm. Parenchymal echotexture is normal. No focal lesions are seen. Multiple nonobstructing renal calculi are present. No mass or fluid collection is seen adjacent to the kidneys. The bladder is grossly unremarkable. IMPRESSION: Unremarkable renal ultrasound. Bilateral nonobstructing renal calculi Report Dictated on Final Dictating Physician: DO JEFFREY ALFRED Signed Date and Time: 12/13/2018 2:06 pm Signed by: DO JEFFREY ALFRED Transcribed Date and Time: 12/13/2018 2:07 Normal [facility] Vital Signs Date Time Vital Sign Value Performing Clinician [place] [facility] 09-02-2024 10:05-0400 Body height 167.6 cm Marlene Vega APRN - DEICER REPAIRER PNEUMATIC Work Phone: [facility] 09-02-2024 10:05-0400 Body mass index (BMI) [Ratio] 30.34 kg/m2 Marlene Vega FISH PEDDLER - DEICER REPAIRER PNEUMATIC Work Phone: [facility] 09-02-2024 10:05-0400 Body weight 85.28 kg Marlene Vega FISH PEDDLER - DEICER REPAIRER PNEUMATIC Work Phone: [facility] 09-02-2024 10:05-0400 Diastolic blood pressure 70 mm[Hg] Marlene Vega FISH PEDDLER - DEICER REPAIRER PNEUMATIC Work Phone: [facility] 09-02-2024 10:05-0400 Heart rate 60 /min Marlene Vega FISH PEDDLER - DEICER REPAIRER PNEUMATIC Work Phone: [facility] 09-02-2024 10:05-0400 Respiratory rate 18 /min Marlene Vega FISH PEDDLER - DEICER REPAIRER PNEUMATIC Work Phone: [facility] 09-02-2024 10:05-0400 Systolic blood pressure 134 mm[Hg] Marlene Veag FISH PEDDLER - DEICER REPAIRER PNEUMATIC Work Phone: [facility] 08-08-2024 09:31-0400 Body height 167.6 cm Regent Fidencio DO Work Phone: [facility] 08-08-2024 09:31-0400 Body mass index (BMI) [Ratio] 30.18 kg/m2 Eric Fidencio DO Work Phone: [facility] 08-08-2024 09:31-0400 Body temperature 98.1 [degF] Eric Fidencio DO Work Phone: [facility] 08-08-2024 09:31-0400 Body weight 84.82 kg Eric Fidencio DO Work Phone: [facility] 08-08-2024 09:31-0400 Diastolic blood pressure 68 mm[Hg] Eric Fidencio DO Work Phone: [facility] 08-08-2024 09:31-0400 Heart rate 61 /min Eric Fidencio DO Work Phone: [facility] 08-08-2024 09:31-0400 SaO2% (BldA) [Mass fraction] 96 % Regent Fidencio DO Work Phone: [facility] 08-08-2024 09:31-0400 Systolic blood pressure 122 mm[Hg] Regent Fidencio DO Work Phone: [facility] 04-28-2024 09:12-0500 Body height 167.6 cm Gustavo Azar MD Work Phone: [facility] 04-28-2024 09:12-0500 Body mass index (BMI) [Ratio] 28.1 kg/m2 Gustavo Azar MD Work Phone: [facility] 04-28-2024 09:12-0500 Body weight 78.97 kg Gustavo Azar MD Work Phone: [facility] 04-28-2024 09:12-0500 Diastolic blood pressure 68 mm[Hg] Gustavo Azar MD Work Phone: [facility] 04-28-2024 09:12-0500 Heart rate 60 /min Gustavo Azar MD Work Phone: [facility] 04-28-2024 09:12-0500 Systolic blood pressure 126 mm[Hg] Gustavo Azar MD Work Phone: [facility] 03-05-2024 08:52-0400 Body height 167.6 cm Marlene Vega FISH PEDDLER - DEICER REPAIRER PNEUMATIC Work Phone: [facility] 03-05-2024 08:52-0400 Body mass index (BMI) [Ratio] 28.7 kg/m2 Marlene Vega FISH PEDDLER - DEICER REPAIRER PNEUMATIC Work Phone: [facility] 03-05-2024 08:52-0400 Body weight 80.65 kg Marlene Vega FISH PEDDLER - DEICER REPAIRER PNEUMATIC Work Phone: [facility] 03-05-2024 08:52-0400 Diastolic blood pressure 68 mm[Hg] Marlene Vega FISH PEDDLER - DEICER REPAIRER PNEUMATIC Work Phone: [facility] 03-05-2024 08:52-0400 Heart rate 62 /min Marlene Vega FISH PEDDLER - DEICER REPAIRER PNEUMATIC Work Phone: [facility] 03-05-2024 08:52-0400 Systolic blood pressure 122 mm[Hg] Marlene Vega FISH PEDDLER - DEICER REPAIRER PNEUMATIC Work Phone: [facility] 02-14-2024 09:43-0400 Body height 167.6 cm Michael Minor FISH PEDDLER - DEICER REPAIRER PNEUMATIC Work Phone: [facility] 02-14-2024 09:43-0400 Body mass index (BMI) [Ratio] 28.57 kg/m2 Michael Minor FISH PEDDLER - DEICER REPAIRER PNEUMATIC Work Phone: [facility] 02-14-2024 09:43-0400 Body weight 80.29 kg Michael Minor FISH PEDDLER - DEICER REPAIRER PNEUMATIC Work Phone: [facility] 02-14-2024 09:43-0400 Diastolic blood pressure 72 mm[Hg] Michael Minor FISH PEDDLER - DEICER REPAIRER PNEUMATIC Work Phone: [facility] 02-14-2024 09:43-0400 Heart rate 71 /min Michael Minor FISH PEDDLER - DEICER REPAIRER PNEUMATIC Work Phone: [facility] 02-14-2024 09:43-0400 Systolic blood pressure 131 mm[Hg] Michael Minor FISH PEDDLER - DEICER REPAIRER PNEUMATIC Work Phone: [facility] 01-31-2024 16:00-0400 Body temperature 95.9 [degF] Jose Mudrakola DO Work Phone: [facility] 01-31-2024 16:00-0400 Diastolic blood pressure 82 mm[Hg] Jose Mudrakola DO Work Phone: [facility] 01-31-2024 16:00-0400 Heart rate 66 /min Jose [facility] 01-31-2024 16:00-0400 SaO2% (BldA) [Mass fraction] 100 % Jose Shaferla DO Work Phone: [facility] 01-31-2024 16:00-0400 Systolic blood pressure 133 mm[Hg] Jose Shaferla DO Work Phone: [facility] 01-31-2024 06:00-0400 Body mass index (BMI) [Ratio] 28.81 kg/m2 Jose Robledo DO Work Phone: [facility] 01-31-2024 06:00-0400 Body weight 80.97 kg Jose Robledo DO Work Phone: [facility] 01-31-2024 04:00-0400 Respiratory rate 16 /min Jose Shaferla DO Work Phone: [facility] 01-24-2024 07:54-0400 Body height 167.6 cm Jose [facility] 01-23-2024 13:38-0400 SaO2% (BldA) [Mass fraction] 99.1 % Jose Shaferla DO [facility] 01-19-2024 04:45-0400 Diastolic blood pressure 76 mm[Hg] Jose Shaefrla DO Work Phone: [facility] 01-19-2024 04:45-0400 Heart rate 65 /min Jose Shaferla DO Work Phone: [facility] 01-19-2024 04:45-0400 Respiratory rate 16 /min Jose Sonila DO Work Phone: [facility] 01-19-2024 04:45-0400 SaO2% (BldA) [Mass fraction] 94 % Jsoe Shaferla DO Work Phone: [facility] 01-19-2024 04:45-0400 Systolic blood pressure 124 mm[Hg] Jose Shaferla DO Work Phone: [facility] 01-19-2024 00:00-0400 Body temperature 98.4 [degF] Jose Shaferla DO Work Phone: [facility] 01-18-2024 22:00-0400 Body height 167.6 cm Jose Shaferla DO Work Phone: [facility] 01-18-2024 22:00-0400 Body mass index (BMI) [Ratio] 29.68 kg/m2 Jose Robledo DO Work Phone: [facility] 01-18-2024 22:00-0400 Body weight 83.4 kg Jose Robledo DO Work Phone: [facility] 12-13-2023 10:07-0400 Body height 167.6 cm Regent Fidencio DO Work Phone: [facility] 12-13-2023 10:07-0400 Body mass index (BMI) [Ratio] 30.02 kg/m2 Regent Fidencio DO Work Phone: [facility] 12-13-2023 10:07-0400 Body temperature 97.5 [degF] Regent Fidencio DO Work Phone: [facility] 12-13-2023 10:07-0400 Body weight 84.37 kg Eric Fidencio DO Work Phone: [facility] 12-13-2023 10:07-0400 Diastolic blood pressure 68 mm[Hg] Eric Fidencio DO Work Phone: [facility] 12-13-2023 10:07-0400 Heart rate 56 /min Eric Fidencio DO Work Phone: [facility] 12-13-2023 10:07-0400 SaO2% (BldA) [Mass fraction] 97 % Eric Fidencio DO Work Phone: [facility] 12-13-2023 10:07-0400 Systolic blood pressure 110 mm[Hg] Eric Fidencio DO Work Phone: [facility] 05-15-2023 13:14-0500 Body height 167.6 cm Regent Fidencio DO Work Phone: [facility] 05-15-2023 13:14-0500 Body weight 85.28 kg Regent Fidencio DO Work Phone: [facility] 05-15-2023 13:14-0500 Diastolic blood pressure 74 mm[Hg] Regent Fidencio DO Work Phone: [facility] 05-15-2023 13:14-0500 Heart rate 68 /min Eric Fidencio DO Work Phone: [facility] 05-15-2023 13:14-0500 SaO2% (BldA) [Mass fraction] 96 % Eric Fidencio DO Work Phone: [facility] 05-15-2023 13:14-0500 Systolic blood pressure 130 mm[Hg] Regent Fidencio DO Work Phone: [facility] 11-13-2022 13:02-0400 Body height 167.6 cm Eric Fidencio DO Work Phone: [facility] 11-13-2022 13:02-0400 Body temperature 98.2 [degF] Eric Fidencio DO Work Phone: [facility] 11-13-2022 13:02-0400 Body weight 86.18 kg Regent Fidencio DO Work Phone: [facility] 11-13-2022 13:02-0400 Diastolic blood pressure 64 mm[Hg] Eric Fidencio DO Work Phone: [facility] 11-13-2022 13:02-0400 Heart rate 58 /min Regent Fidencio DO Work Phone: [facility] 11-13-2022 13:02-0400 SaO2% (BldA) [Mass fraction] 97 % Regent Fidencio DO Work Phone: [facility] 11-13-2022 13:02-0400 Systolic blood pressure 124 mm[Hg] Regent Fidencio DO Work Phone: [facility] 04-24-2022 09:55-0500 Diastolic blood pressure 70 mm[Hg] Eric Fidencio DO Work Phone: [facility] 04-24-2022 09:55-0500 Systolic blood pressure 130 mm[Hg] Regent Fidencio DO Work Phone: [facility] 04-24-2022 09:22-0500 Body height 167.6 cm Regent Fidencio DO Work Phone: [facility] 04-24-2022 09:22-0500 Body weight 84.37 kg Regent Fidencio DO Work Phone: [facility] 04-24-2022 09:22-0500 Heart rate 61 /min Regent Fidencio DO Work Phone: [facility] 04-24-2022 09:22-0500 SaO2% (BldA) [Mass fraction] 98 % Eric Fidencio DO Work Phone: [facility] 07-21-2021 11:17-0500 Body height 167.6 cm Regent Fidencio DO Work Phone: [facility] 07-21-2021 11:17-0500 Body temperature 97.2 [degF] Regent Fidencio DO Work Phone: [facility] 07-21-2021 11:17-0500 Body weight 86.18 kg Regent Fidencio DO Work Phone: [facility] 07-21-2021 11:17-0500 Diastolic blood pressure 60 mm[Hg] Eric Fidencio DO Work Phone: [facility] 07-21-2021 11:17-0500 Heart rate 57 /min Eric Fidencio DO Work Phone: [facility] 07-21-2021 11:17-0500 SaO2% (BldA) [Mass fraction] 100 % Regent Fidencio DO Work Phone: [facility] 07-21-2021 11:17-0500 Systolic blood pressure 118 mm[Hg] Eric Fidencio DO Work Phone: [facility] 07-14-2021 09:35-0500 Body height 167.6 cm Regent Fidencio DO Work Phone: [facility] 07-14-2021 09:35-0500 Body temperature 97.39 [degF] Regent Fidencio DO Work Phone: [facility] 07-14-2021 09:35-0500 Body weight 86.18 kg Regent Fidencio DO Work Phone: [facility] 07-14-2021 09:35-0500 Diastolic blood pressure 66 mm[Hg] Regent Fidencio DO Work Phone: [facility] 07-14-2021 09:35-0500 Heart rate 63 /min Eric Fidencio DO Work Phone: [facility] 07-14-2021 09:35-0500 SaO2% (BldA) [Mass fraction] 98 % Regent Fidencio DO Work Phone: [facility] 07-14-2021 09:35-0500 Systolic blood pressure 110 mm[Hg] Eric Fidencio DO Work Phone: [facility] 05-09-2021 15:09-0500 Body height 167.6 cm Regent Fidencio DO Work Phone: [facility] 05-09-2021 15:09-0500 Body temperature 96.8 [degF] Eric Fidencio DO Work Phone: [facility] 05-09-2021 15:09-0500 Body weight 87.54 kg Regent Fidencio DO Work Phone: [facility] 05-09-2021 15:09-0500 Diastolic blood pressure 68 mm[Hg] Regent Fidencio DO Work Phone: [facility] 05-09-2021 15:09-0500 Heart rate 61 /min Eric Fidencio DO Work Phone: [facility] 05-09-2021 15:09-0500 SaO2% (BldA) [Mass fraction] 97 % Regent Fidencio DO Work Phone: [facility] 05-09-2021 15:09-0500 Systolic blood pressure 130 mm[Hg] Regent Fidencio DO Work Phone: [facility] 04-25-2021 11:18-0500 Body height 167.6 cm Regent Fidencio DO Work Phone: [facility] 04-25-2021 11:18-0500 Body temperature 98.4 [degF] Eric Fidencio DO Work Phone: [facility] 04-25-2021 11:18-0500 Body weight 86.18 kg Eric Fidencio DO Work Phone: [facility] 04-25-2021 11:18-0500 Diastolic blood pressure 82 mm[Hg] Regent Fidencio DO Work Phone: [facility] 04-25-2021 11:18-0500 Heart rate 88 /min Eric Fidencio DO Work Phone: [facility] 04-25-2021 11:18-0500 SaO2% (BldA) [Mass fraction] 98 % Regent Fidencio DO Work Phone: [facility] 04-25-2021 11:18-0500 Systolic blood pressure 124 mm[Hg] Regent Fidencio DO Work Phone: [facility] 12-28-2020 10:20-0400 Body height 167.6 cm Regent Fidencio DO Work Phone: [facility] 12-28-2020 10:20-0400 Body temperature 98.01 [degF] Eric Fidencio DO Work Phone: [facility] 12-28-2020 10:20-0400 Body weight 91.17 kg Eric Nicolas DO Work Phone: [facility] 12-28-2020 10:20-0400 Diastolic blood pressure 64 mm[Hg] Eric Nicolas DO Work Phone: [facility] 12-28-2020 10:20-0400 Heart rate 59 /min Eric Nicolas DO Work Phone: [facility] 12-28-2020 10:20-0400 SaO2% (BldA) [Mass fraction] 98 % Eric Nicolas DO Work Phone: [facility] 12-28-2020 10:20-0400 Systolic blood pressure 112 mm[Hg] Eric Nicolas DO Work Phone: [facility] Encounters Encounter Date Encounter Type Care Provider Facility Start: 09-08-2024 End: 09-08-2024 Refill Eric Nicolas DO Work Phone: [facility] Comment on above: Refill Request Start: 09-08-2024 End: 09-08-2024 Telephone encounter Eric Nicolas DO Work Phone: [facility] Start: 09-02-2024 End: 09-02-2024 ambulatory MARLENE VEGA [facility] Start: 09-02-2024 End: 09-02-2024 Office outpatient visit 25 minutes Marlene Vega FISH PEDDLER - DEICER REPAIRER PNEUMATIC Work Phone: [facility] - [place] Comment on above: Paroxysmal atrial fi brillation (HCC) (Primary Dx) Start: 08-19-2024 End: 08-19-2024 Subsequent hospital visit by physician Eric Nicolas DO Work Phone: [facility] Comment on above: Pain in right leg; Pain in left leg; Peripheral vascular disease, unspecified (HCC) Start: 08-19-2024 End: 08-19-2024 ambulatory ERIC NICOLAS [facility] Start: 08-12-2024 End: 08-25-2024 Telephone encounter Eric Nicolas DO Work Phone: [facility] [place] Comment on above: Orders (US arterial PVR at [facility]. Insurance will not accept the diagnosis or pain we need to change the diagnosis and resend a new order to [phone] ) Start: 08-11-2024 End: 08-11-2024 Telephone encounter Eric Nicolas DO Work Phone: [facility] Comment on above: Orders (US fax [place] ) Start: 08-08-2024 End: 08-08-2024 Patient encounter procedure Eric Nicolas DO Work Phone: [facility] Comment on above: Benign essential hyp ertension (Primary Dx); Acquired hypothyroidism; Type 2 diabetes mellitus with stage 3 chronic kidney disease, without long-term current use of insulin, unspecified whether stage 3a or 3b CKD (HCC); Mixed hyperlipidemia; Paroxysmal atrial fibrillation (HCC); Stage 3b chronic kidney disease (HCC); 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; Pain in both lower extremities; Class 1 obesity with body mass index (BMI) of 30.0 to 30.9 in adult, unspecified obesity type, unspecified whether serious comorbidity present Start: 08-08-2024 End: 08-08-2024 ambulatory ERIC STEVENSON NICOLAS Facility:[facility] Start: 06-02-2024 End: 06-02-2024 Telephone encounter Morelia Menjivar RN [facility] Comment on above: Results (Monitor) Start: 05-01-2024 End: 05-01-2024 Subsequent hospital visit by physician Gustavo Azar MD Work Phone: [facility] Non-Invasive Cardiology Comment on above: Paroxysmal atrial fi brillation (HCC) Start: 05-01-2024 End: 05-01-2024 [facility] Start: 04-28-2024 End: 04-28-2024 Office outpatient visit 25 minutes Gustavo Azar MD Work Phone: [facility] [place] Comment on above: Paroxysmal atrial fi brillation (HCC) (Primary Dx); 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); Mixed hyperlipidemia Start: 04-28-2024 End: 04-28-2024 ambulatory GUSTAVO AZAR [facility] Start: 03-05-2024 End: 03-05-2024 Office outpatient visit 25 minutes Marlene J Justo BARRIGA - DEICER REPAIRER PNEUMATIC Work Phone: [facility] [place] Comment on above: Coronary artery dise ase involving hopland coronary artery of hopland heart without angina pectoris (Primary Dx); Essential hypertension; Mixed hyperlipidemia; CKD stage 3a, GFR 45-59 ml/min (HCC); Postoperative atrial fibrillation (HCC) Start: 03-05-2024 End: 03-05-2024 ambulatory MARLENE VEGA [facility] Start: 02-25-2024 End: 02-25-2024 Postop follow up visit related to original px Michael Minor FISH PEDDLER - DEICER REPAIRER PNEUMATIC Work Phone: [facility] Thoracic Surgery - [place] Comment on above: S/P CABG (coronary a rtery bypass graft) (Primary Dx); Coronary artery disease involving hopland coronary artery of hopland heart, unspecified whether angina present; NSTEMI (non-ST elevated myocardial infarction) (HCC); Hypertension, unspecified type Start: 02-25-2024 End: 02-25-2024 ambulatory MICHAEL MINOR [facility] Start: 02-14-2024 End: 02-14-2024 Postop follow up visit related to original px Michael Minor FISH PEDDLER - DEICER REPAIRER PNEUMATIC Work Phone: [facility] Thoracic Surgery - [place] Comment on above: S/P CABG (coronary a rtery bypass graft) (Primary Dx); Coronary artery disease involving hopland coronary artery of hopland heart, unspecified whether angina present; NSTEMI (non-ST elevated myocardial infarction) (HCC); Hypertension, unspecified type Start: 02-14-2024 End: 02-14-2024 ambulatory MICHAEL BOSSJoe [facility] Start: 01-17-2024 End: 01-31-2024 Evaluation and management of inpatient Jose Robledo DO Work Phone: [facility] Thor[facility] Intensive [facility] CTV ICU T1 Comment on above: NSTEMI (non-ST eleva jose myocardial infarction) (HCC) (Primary Dx) Start: 12-17-2023 Refill Eric Nicolas DO Work Phone: [facility] Comment on above: Refill Request Start: 12-13-2023 End: 12-13-2023 Patient encounter procedure Eric Nicolas DO Work Phone: [facility] Comment on above: Type 2 diabetes tahir itus with stage 3 chronic kidney disease, without long-term current use of insulin, unspecified whether stage 3a or 3b CKD (HCC) (Primary Dx); Benign essential hypertension; Stage 3b chronic kidney disease (HCC); Mixed hyperlipidemia; Acquired hypothyroidism; Arthritis of both knees; Class 1 obesity with body mass index (BMI) of 30.0 to 30.9 in adult, unspecified obesity type, unspecified whether serious comorbidity present; Vitamin B12 deficiency Start: 12-13-2023 End: 12-13-2023 ambulatory ERIC STEVENSON NICOLAS Facility:[facility] Start: 12-01-2023 End: 12-01-2023 ambulatory ERIC STEVENSON NICOLAS Facility:[id number] Start: 09-13-2023 Telephone encounter Eric pennington Fidencio DO Work Phone: [facility] Comment on above: Medication Problem ( Paxlovid sent to mail order pharmacy and needs to go to [facility] ) Start: 09-11-2023 Telephone encounter Eric Ocasiorio DO Work Phone: [facility] Comment on above: Patient Question (Co vid positive) Start: 05-15-2023 End: 05-15-2023 Patient encounter procedure Eric Nicolas DO Work Phone: [facility] Comment on above: Benign essential hyp ertension (Primary Dx); Type 2 diabetes mellitus with stage 3 chronic kidney disease, without long-term current use of insulin, unspecified whether stage 3a or 3b CKD (HCC); Stage 3b chronic kidney disease (HCC); Acquired hypothyroidism; Mixed hyperlipidemia; Screening for thyroid disorder; Screening for prostate cancer; Obesity, Class I, BMI 30-34.9 Start: 02-28-2023 Refill Eric Nicolas DO Work Phone: [facility] Comment on above: Refill Request Start: 11-13-2022 End: 11-13-2022 Patient encounter procedure Eric Nicolas DO Work Phone: [facility] [place] Comment on above: Type 2 diabetes tahir itus with diabetic neuropathy, without long-term current use of insulin (HCC) (Primary Dx); Mixed hyperlipidemia; Obesity, Class I, BMI 30-34.9; Stage 3b chronic kidney disease (HCC) Start: 09-18-2022 Refill Eric Nicolas DO Work Phone: [facility] Comment on above: Refill Request Start: 06-26-2022 Refill Eric Nicolas DO Work Phone: [facility] Comment on above: Refill Request Start: 05-01-2022 Telephone encounter Eric Asuncion gorge Nicolas DO Work Phone: [facility] Comment on above: Results Start: 04-28-2022 End: 04-28-2022 Subsequent hospital visit by physician [place] [address] [facility] [place] Comment on above: Type 2 diabetes tahir itus with diabetic neuropathy, without long-term current use of insulin (HCC) [E11.40] Start: 04-27-2022 Telephone encounter Regent Asuncion Ocasiorio DO Work Phone: [facility] [place] Comment on above: Consult (Nephrology) Results Start: 04-24-2022 End: 04-24-2022 Patient encounter procedure Eric Nicolas DO Work Phone: [facility] Comment on above: Type 2 diabetes tahir itus with diabetic neuropathy, without long-term current use of insulin (HCC) (Primary Dx); Benign essential hypertension; Mixed hyperlipidemia; Screening for malignant neoplasm of prostate Start: 04-11-2022 ambulatory Eric Nicolas DO Work Phone: [employer] Start: 07-26-2021 Telephone encounter Eric Nicolas DO Work Phone: [facility] Comment on above: Refill Request (Test strips) Start: 07-21-2021 End: 07-21-2021 Patient encounter procedure Eric Nicolas DO Work Phone: [facility] Comment on above: Type 2 diabetes tahir itus with diabetic neuropathy, without long-term current use of insulin (HCC) Start: 07-18-2021 Telephone encounter Eric Nicolas DO Work Phone: [facility] Comment on above: Results Start: 07-14-2021 Refill Eric Nicolas DO Work Phone: [facility] Comment on above: Refill Request Start: 07-14-2021 End: 07-14-2021 Patient encounter procedure Eric Nicolas DO Work Phone: [facility] Comment on above: Type 2 diabetes tahir itus with diabetic neuropathy, without long-term current use of insulin (HCC) (Primary Dx); Cervical radiculopathy; Carpal tunnel syndrome, right; Special screening examination for viral disease Start: 06-14-2021 Telephone encounter Eric Nicolas DO Work Phone: [facility] Comment on above: Opened In Error Start: 06-06-2021 Telephone encounter Eric Nicolas DO Work Phone: [facility] Comment on above: Orders Start: 06-03-2021 Telephone encounter Eric Nicolas DO Work Phone: [facility] Comment on above: Opened In Error Refill Request Start: 05-26-2021 Refill Eric Nicolas DO Work Phone: [facility] Comment on above: Refill Request Start: 05-09-2021 End: 05-09-2021 Patient encounter procedure Eric Nicolas DO Work Phone: [facility] Comment on above: Cervical radiculopat hy (Primary Dx) Start: 04-25-2021 End: 04-25-2021 Patient encounter procedure Eric Nicolas DO Work Phone: [facility] Comment on above: Cervical radiculopat hy (Primary Dx) Start: 12-28-2020 End: 12-28-2020 Patient encounter procedure Eric Nicolas DO Work Phone: [facility] Comment on above: Type 2 diabetes tahir itus with diabetic neuropathy, without long-term current use of insulin (HCC) (Primary Dx); Mixed hyperlipidemia; Benign essential hypertension; Acquired hypothyroidism; Screening for prostate cancer Start: 09-29-2020 End: 09-29-2020 Refill Eric Nicolas DO Work Phone: [facility] [place] Comment on above: Refill Request Start: 07-13-2020 End: 07-13-2020 Telephone encounter Eric Nicolas DO Work Phone: [facility] [place] Comment on above: Orders Start: 07-12-2020 End: 07-12-2020 Telephone encounter Eric Nicolas DO Work Phone: [facility] [place] Comment on above: Medication Problem Start: 06-30-2020 End: 06-30-2020 Telephone encounter Eric Nicolas Work Phone: [facility] Comment on above: Results (A1C) Start: 04-27-2020 End: 04-27-2020 Refill Eric Nicolas Work Phone: [facility] [place] Comment on above: Refill Request Start: 06-04-2019 End: 06-04-2019 Subsequent hospital visit by physician Eric Nicolas DO Work Phone: [facility] Procedures Date Procedure Procedure Detail Performing Clinician Start: 09-02-2024 Follow-up visit GUSTAVO AZAR Start: 08-19-2024 Non-invasive physiol ogic study extremity 3 levls Eric Nicolas DO Work Phone: Start: 08-08-2024 Hemoglobin A1c/Hemoglobin.total in Blood Eric Nicolas DO Work Phone: Start: 04-28-2024 Ecg routine ecg w/le ast 12 lds w/i&r Gustavo Azar MD Work Phone: Start: 04-28-2024 Follow-up visit GUSTAVO AZAR Start: 03-05-2024 Ecg routine ecg w/le ast 12 lds w/i&r Gustavo Azar MD Work Phone: Start: 03-05-2024 Follow-up visit GUSTAVO AZAR Start: 02-14-2024 Follow-up visit GUSTAVO AZAR Start: 01-31-2024 Glucose quantitative blood xcpt reagent strip Loretta Johnson DO Work Phone: Start: 01-31-2024 Glucose quantitative blood xcpt reagent strip Loretta Johnson DO Work Phone: Start: 01-31-2024 Comprehensive metabo lic panel Gi Rodriguez Jeckel FISH PEDDLER - DEICER REPAIRER PNEUMATIC Work Phone: Start: 01-30-2024 Glucose quantitative blood xcpt reagent strip Loretta Johnson DO Work Phone: Start: 01-30-2024 Glucose quantitative blood xcpt reagent strip Loretta Johnson DO Work Phone: Start: 01-30-2024 Glucose quantitative blood xcpt reagent strip Loretta Johnson DO Work Phone: Start: 01-30-2024 Glucose quantitative blood xcpt reagent strip Loretta Johnson DO Work Phone: Start: 01-30-2024 Comprehensive metabo lic panel Gi Jennifer Solorzano FISH PEDDLER - DEICER REPAIRER PNEUMATIC Work Phone: Start: 01-30-2024 Radiologic exam ches t single view Gi Jennifer Solorzano FISH PEDDLER - DEICER REPAIRER [employer] Work Phone: Start: 01-29-2024 Glucose quantitative blood xcpt reagent strip Loretta Johnson DO Work Phone: Start: 01-29-2024 Glucose quantitative blood xcpt reagent strip Loretta Johnson DO Work Phone: Start: 01-29-2024 Glucose quantitative blood xcpt reagent strip Loretta Johnson DO Work Phone: Start: 01-29-2024 Radiologic exam ches t single view Gi Jennifer Solorzano FISH PEDDLER - DEICER REPAIRER [employer]UMAT[employer] Work Phone: Start: 01-29-2024 Comprehensive metabo lic panel Sumit Stanley FISH PEDDLER - DEICER REPAIRER [employer]UMAT[employer] Work Phone: Start: 01-29-2024 Thyrotropin [Units/v olume] in Serum or Plasma Michael Minor FISH PEDDLER - DEICER REPAIRER P[employer]UMATIC Work Phone: Start: 01-28-2024 Glucose quantitative blood xcpt reagent strip Loretta Johnson DO Work Phone: Start: 01-28-2024 Glucose quantitative blood xcpt reagent strip Loretta Johnson DO Work Phone: Start: 01-28-2024 Basic metabolic pane l calcium total Gi Solorzano FISH PEDDLER - DEICER REPAIRER PNEUMATIC Work Phone: Start: 01-28-2024 Glucose quantitative blood xcpt reagent strip Loretta Johnson DO Work Phone: Start: 01-28-2024 Radiologic exam ches t single view Gi Solorzano FISH PEDDLER - DEICER REPAIRER [employer] Work Phone: Start: 01-28-2024 Comprehensive metabo lic panel Sumit Stanley FISH PEDDLER - DEICER REPAIRER [employer]UM[employer] Work Phone: Start: 01-27-2024 Glucose quantitative blood xcpt reagent strip Loretta Johnson DO Work Phone: Start: 01-27-2024 Glucose quantitative blood xcpt reagent strip Loretta Johnson DO Work Phone: Start: 01-27-2024 Glucose quantitative blood xcpt reagent strip Loretta Johnson DO Work Phone: Start: 01-27-2024 Comprehensive metabo lic panel Sumit Stanley FISH PEDDLER - DEICER REPAIRER [employer]UM[employer] Work Phone: Start: 01-27-2024 Radiologic exam ches t single view Gi Solorzano FISH PEDDLER - DEICER REPAIRER [employer] Work Phone: Start: 01-26-2024 Glucose quantitative blood xcpt reagent strip Loretta Johnson DO Work Phone: Start: 01-26-2024 End: 01-26-2024 Comprehensive metabolic panel Sumit Stanley FISH PEDDLER - DEICER REPAIRER [employer]UMAT[employer] Work Phone: Start: 01-26-2024 Radiologic exam ches t single view Gi Solorzano FISH PEDDLER - DEICER REPAIRER [employer]UM[employer] Work Phone: Start: 01-26-2024 Comprehensive metabo lic panel Michael Minor FISH PEDDLER - DEICER REPAIRER [employer]UM[employer] Work Phone: Start: 01-25-2024 Basic metabolic pane l calcium total Loretta Johnson DO Work Phone: Start: 01-25-2024 Glucose quantitative blood xcpt reagent strip Loretta Johnson DO Work Phone: Start: 01-25-2024 Comprehensive metabo lic panel Michael JesiStan Minor FISH PEDDLER - DEICER REPAIRER [employer]NEUMAT[employer] Work Phone: Start: 01-25-2024 Glucose quantitative blood xcpt reagent strip Loretta Johnson DO Work Phone: Start: 01-25-2024 End: 01-25-2024 Ecg routine ecg w/least 12 lds trcg only w/o i&r Loretta Johnson DO Work Phone: Start: 01-25-2024 Comprehensive metabo lic panel Michael JseiStan Minor FISH PEDDLER - DEICER REPAIRER PNEUMATIC Work Phone: Start: 01-25-2024 Ecg routine ecg w/le ast 12 lds trcg only w/o i&r Bruce Scott MD Work Phone: Start: 01-25-2024 Glucose quantitative blood xcpt reagent strip Loretta Johnson DO Work Phone: Start: 01-25-2024 Comprehensive metabo lic panel Michael Minor FISH PEDDLER - DEICER REPAIRER PNEUMATIC Work Phone: Start: 01-25-2024 Radiologic exam ches t single view Gi Solorzano FISH PEDDLER - DEICER REPAIRER [employer]NEUMAT[employer] Work Phone: Start: 01-25-2024 Ecg routine ecg w/le ast 12 lds trcg only w/o i&r Gi Solorzano FISH PEDDLER - DEICER REPAIRER PNEUMAT[employer] Work Phone: Start: 01-25-2024 Comprehensive metabo lic panel Michael Minor FISH PEDDLER - DEICER REPAIRER PNEUMATIC Work Phone: Start: 01-24-2024 End: 01-24-2024 Comprehensive metabolic panel Michael Minor FISH PEDDLER - DEICER REPAIRER PNEUMATIC Work Phone: Start: 01-24-2024 Glucose quantitative blood xcpt reagent strip Loretta Johnson DO Work Phone: Start: 01-24-2024 End: 01-24-2024 Comprehensive metabolic panel Michael Minor FISH PEDDLER - DEICER REPAIRER PNEUMATIC Work Phone: Start: 01-24-2024 Glucose quantitative blood xcpt reagent strip Loretta Johnson DO Work Phone: Start: 01-24-2024 Glucose quantitative blood xcpt reagent strip Loretta Johnson DO Work Phone: Start: 01-24-2024 Glucose quantitative blood xcpt reagent strip Loretta Johnson DO Work Phone: Start: 01-24-2024 Glucose quantitative blood xcpt reagent strip Loretta Johnson DO Work Phone: Start: 01-24-2024 Radiologic exam ches t single view Gi Solorzano FISH PEDDLER [employer] Work Phone: Start: 01-24-2024 Ecg routine ecg w/le ast 12 lds trcg only w/o i&r Gi Solorzano FISH P[employer] Work Phone: Start: 01-24-2024 Glucose quantitative blood xcpt reagent strip Loretta Johnson DO Work Phone: Start: 01-24-2024 Glucose quantitative blood xcpt reagent strip Loretta Johnson DO Work Phone: Start: 01-24-2024 Glucose quantitative blood xcpt reagent strip Loretta Johnson DO Work Phone: Start: 01-24-2024 Compatibility each u nit electronic Gi Solorzano FISH PEDDLER [employer] Work Phone: Start: 01-24-2024 Comprehensive metabo lic panel Michael Minor FISH P[employer] Work Phone: Start: 01-23-2024 Glucose quantitative blood xcpt reagent strip Loretta Johnson DO Work Phone: Start: 01-23-2024 End: 01-23-2024 Glucose quantitative blood xcpt reagent strip Loretta Johnson DO Work Phone: Start: 01-23-2024 End: 01-23-2024 Glucose quantitative blood xcpt reagent strip Loretta Johnson DO Work Phone: Start: 01-23-2024 End: 01-23-2024 Basic metabolic panel calcium total Michael Minor [facility] [employer] [facility] Work Phone: Start: 01-23-2024 Radiologic exam ches t single view Gi Solorzano [facility] Work Phone: Start: 01-23-2024 Ecg routine ecg w/le ast 12 lds trcg only w/o i&r Gi Solorzano [facility] [employer] [facility] Work Phone: Start: 01-23-2024 End: 01-23-2024 Glucose quantitative blood xcpt reagent strip Loretta Johnson DO Work Phone: Start: 01-23-2024 Level v surg patholo gy gross&microscopic exam Loretta Johnson [employer] Work Phone: Start: 01-23-2024 Basic metabolic pane l calcium total Mark Holguin MD Work Phone: Start: 01-23-2024 Blood gases any combination ph pco2 po2 co2 hco3 Mark Holguin MD Work Phone: Start: 01-23-2024 End: 01-23-2024 Cabg w/arterial graft three arterial grafts Loretta Johnson DO Work Phone: Start: 01-23-2024 End: 01-23-2024 Echo transesophag r-t 2d w/prb img acquisj i&r Loretta Johnson DO Work Phone: Start: 01-23-2024 End: 01-24-2024 Comprehensive metabolic panel Aleta Catypeace Gilbert DO Work Phone: Start: 01-23-2024 Ecg routine ecg w/le ast 12 lds trcg only w/o i&r Aleta Catypeace Coronadoie Vo DO Work Phone: Start: 01-22-2024 Thromboplastin time partial plasma/whole blood Michael Urena MD Work Phone: Start: 01-22-2024 Thromboplastin time partial plasma/whole blood Michael Ayanna WEINSTEIN Work Phone: Start: 01-22-2024 Basic metabolic pane l calcium total Aleta Caty Eve Vo DO Work Phone: Start: 01-22-2024 Ecg routine ecg w/le ast 12 lds trcg only w/o i&r Aleta Caty Eve Vo DO Work Phone: Start: 01-21-2024 Thromboplastin time partial plasma/whole blood Michael Urena MD Work Phone: Start: 01-21-2024 BEDSIDE SPIROMETRY Michael Minor APRN - DEICER REPAIRER PNEUMATIC Work Phone: Start: 01-21-2024 Ecg routine ecg w/le ast 12 lds trcg only w/o i&r Aleta Caty Eve Vo DO Work Phone: Start: 01-21-2024 End: 01-21-2024 Basic metabolic panel calcium total Aleta Caty Eve Vo DO Work Phone: Start: 01-20-2024 Thromboplastin time partial plasma/whole blood Michael Urena MD Work Phone: Start: 01-20-2024 Thromboplastin time partial plasma/whole blood Michael Urena MD Work Phone: Start: 01-20-2024 Dup-scan xtr veins complete bilateral study Michael Minor FISH PEDDLER - DEICER REPAIRER PNEUMATIC Work Phone: Start: 01-20-2024 Duplex scan extracra nial art compl bi study Michael Minor FISH PEDDLER - DEICER REPAIRER PNEUMATIC Work Phone: Start: 01-20-2024 Antibody screen GUSTAVO AZAR Comment on above: Performed By: #### L [id number] ####Medical Transcriptionist: COURTNEY BENNETT ([id number])[facility] ([facility])[address] [place] [address] Start: 01-20-2024 ABO and Rh group [Ty pe] in Blood by Confirmatory method Refugio Mortensen MD Work Phone: Start: 01-20-2024 Antibody screen rbc each serum technique Refugio Mortensen MD Work Phone: Start: 01-20-2024 Ecg routine ecg w/le ast 12 lds trcg only w/o i&r Aleta Caty Eve Vo DO Work Phone: Start: 01-20-2024 Basic metabolic pane l calcium total Aleta Caty Eve Vo DO Work Phone: Start: 01-19-2024 Thromboplastin time partial plasma/whole blood Michael Urena MD Work Phone: Start: 01-19-2024 Ct thorax w/o contra st material Michael A. Leskosky FISH PEDDLER - DEICER REPAIRER PNEUMATIC Work Phone: Start: 01-19-2024 Thromboplastin time partial plasma/whole blood Michael Urena MD Work Phone: Start: 01-19-2024 Ecg routine ecg w/le ast 12 lds trcg only w/o i&r Michael Urena MD Work Phone: Start: 01-19-2024 Thromboplastin time partial plasma/whole blood Michael Urena MD Work Phone: Start: 01-19-2024 Assay of troponin quantitative Aleta Caty Eve Vo DO Work Phone: Start: 01-18-2024 Ecg routine ecg w/le ast 12 lds trcg only w/o i&r Aleta Caty Eve Vo DO Work Phone: Start: 01-18-2024 End: 01-18-2024 Basic metabolic panel calcium total Aleta Caty Eve Vo DO Work Phone: Start: 01-18-2024 Blood count complete automated Maxine Schwartz MD Work Phone: Start: 01-18-2024 Cardiac catheterizat ion study Gustavo Azar MD Work Phone: Start: 01-18-2024 POCT ACT [facility] Work Phone: Start: 01-18-2024 TTE w or wo fol wcon,Willie Azar MD Work Phone: Start: 01-18-2024 Comprehensive metabo lic panel Michael Urena MD Work Phone: Start: 01-18-2024 Lipid panel Michael Urena MD Work Phone: Start: 01-18-2024 Assay of troponin quantitative Michael Urena MD Work Phone: Start: 01-17-2024 End: 01-18-2024 Basic metabolic panel calcium total Jose Robledo DO Work Phone: Start: 01-17-2024 Radiologic exam ches t single view Jose Robledo DO Work Phone: Start: 01-17-2024 Ecg routine ecg w/le ast 12 lds i&r only Jose Robledo DO Work Phone: Start: 12-13-2023 Hemoglobin A1c/Hemoglobin.total in Blood Zalandoard Fidencio DO Work Phone: Start: 12-13-2023 Adult depression scr eening assessment Clipikrio DO Work Phone: Start: 12-01-2023 Thyrotropin [Units/v olume] in Serum or Plasma Jose Robledo DO Work Phone: Start: 11-13-2022 Hemoglobin A1c/Hemoglobin.total in Blood Eric Stevenson Nicolas DO Work Phone: Start: 10-19-2021 Adult depression scr eening assessment Clipikrio DO Work Phone: Start: 06-28-2020 Adult depression scr eening assessment Eric Fidencio DO Work Phone: Start: 06-04-2019 Radiologic examinati on knee 3 views [employer] Work Phone: History of coronary artery bypass grafting S/P CABG (coronary artery bypass graft) Jose Robledo DO Work Phone: History of coronary artery bypass grafting S/P CABG (coronary artery bypass graft) Michael Ivancarline FISH PEDDLER - DEICER REPAIRER PNEUMATIC Work Phone: History of coronary artery bypass grafting S/P CABG (coronary artery bypass graft) Michael Bosseric FISH PEDDLER - DEICER REPAIRER PNEUMATIC Work Phone: Plan of Treatment Date Care Activity Detail Author Start: 08-08-2025 Annual PCP Team Chronic Disease Visit Annual PCP Team Chronic Disease Visit [facility] Start: 08-08-2025 BP Controlled (<130/80) BP Controlled (<130/80) [facility] Start: 05-15-2025 Hepatitis B surface antibody level LDL Cholesterol [facility] Start: 02-10-2025 Complete blood count Hemoglobin/Hematocrit [facility] Start: 02-10-2025 Creatinine measurement Serum Creatinine [facility] Start: 02-10-2025 Diabetes: Estimated Glomerular Filtration Rate for Kidney Health Diabetes: Estimated Glomerular Filtration Rate for Kidney Health [facility] Start: 02-10-2025 End: 02-10-2025 Patient encounter procedure 02/10/2025 10:15 [place] [address] Eric Nicolas DO [address] [place] [address] f/u 6 month [facility] Comment on above: f/u 6 month Start: 02-08-2025 Hemoglobin A1c measurement HbA1C [facility] Start: 01-28-2025 Thyroid stimulating hormone measurement [facility] Start: 01-26-2025 Influenza vaccination Influenza Vaccine (Season Ended) [facility] Start: 12-12-2024 Annual PCP Team Chronic Disease Visit Annual PCP Team Chronic Disease Visit [facility] Start: 12-12-2024 Anxiety Screening Anxiety Screening [facility] Start: 12-12-2024 BP Controlled (<130/80) BP Controlled (<130/80) [facility] Start: 12-12-2024 Depression Screening Depression Screening [facility] Start: 12-12-2024 Diabetic foot examination Diabetic Foot Exam [facility] Start: 11-30-2024 Complete blood count Hemoglobin/Hematocrit [facility] Start: 11-30-2024 Creatinine measurement Serum Creatinine [facility] Start: 11-30-2024 Hepatitis B surface antibody level LDL Cholesterol [facility] Start: 11-30-2024 Thyroid stimulating hormone measurement TSH Level [facility] Start: 09-02-2024 End: 09-02-2024 Patient encounter procedure 09/02/2024 9:30 AM EDT Office Visit [facility] [place] [address] [facility] [place] [phone] Marlene Vega, FISH PEDDLER - DEICER REPAIRER PNEUMATIC [address] [facility] [address] [place] [address] [facility] [place] Start: 06-14-2024 Hemoglobin A1c measurement HbA1C [facility] Start: 06-13-2024 End: 06-13-2024 Patient encounter procedure 06/13/2024 10:15 AM EST Office Visit [facility] [place] [address] Eric Nicolas DO [address] [place] [address] f/u 6 months [facility] [place] Comment on above: f/u 6 months Start: 05-28-2024 Advance Directive Discussion Advance Directive Discussion [facility] Start: 05-28-2024 Medicare Advantage Annual Wellness Visit Medicare Advantage Annual Wellness Visit [facility] Start: 05-24-2024 Complete blood count Hemoglobin/Hematocrit [facility] Start: 05-24-2024 Creatinine measurement Serum Creatinine [facility] Start: 05-24-2024 Hepatitis B surface antibody level LDL Cholesterol [facility] Start: 05-15-2024 Annual PCP Team Chronic Disease Visit Annual PCP Team Chronic Disease Visit [facility] Start: 05-01-2024 End: 05-01-2024 Patient encounter procedure 05/01/2024 8:30 AM EST Appointment [facility] Non-Invasive Cardiology [address] [place] [phone] Gustavo Azar MD [address] [facility] [address] [place] [address] [facility] Non-Invasive Cardiology Start: 04-28-2024 End: 04-28-2026 Cardiac holter monitor (3-7 days) Cardiac holter monitor (3-7 days) [facility] Routine Paroxysmal atrial fibrillation (HCC) Expected: 04/28/2024, Expires: 04/28/2026 [facility] Comment on above: Expected: 04/28/2024, Expires: Start: 04-28-2024 End: 04-10-2025 Lipid 1996 panel - Serum or Plasma Lipid panel Lab Routine 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) Mixed hyperlipidemia Expected: 04/28/2024 (Approximate), Expires: 04/10/2025 [facility] Work Phone: Comment on above: Expected: 04/28/2024 (Approximate), Expi res: 04/10/2025 Start: 04-28-2024 End: 04-28-2024 Patient encounter procedure 04/28/2024 9:15 AM EST Office Visit [facility] Cardiology - [place] [address] [facility] [address] [place] [phone] Gustavo Azar MD [address] [facility] [address] [place] [address] [facility] [place] Start: 03-05-2024 End: 03-05-2024 ambulatory [facility] Start: 03-05-2024 End: 03-05-2024 Patient encounter procedure 03/05/2024 9:00 AM EDT Office Visit [facility] - [place] [address] [facility] [address] [place] [phone] Marlene Vega, FISH PEDDLER - DEICER REPAIRER PNEUMATIC [address] [facility] [address] [place] [address] [facility] - [place] Start: 02-25-2024 End: 02-25-2024 Telemedicine consultation with patient 02/25/2024 1:00 PM EDT Telemedicine [facility] Cardiovascular Thoracic Surgery [place] [address] [place] [phone] Michael Minor, FISH PEDDLER - DEICER REPAIRER PNEUMATIC [address] [place] [address] [facility] [place] Start: 02-14-2024 End: 02-14-2024 ambulatory [facility] Start: 01-27-2024 COVID-19 Vaccine ( season) COVID-19 Vaccine ( season) [facility] Start: 01-27-2024 COVID-19 Vaccine ( season) COVID-19 Vaccine () [facility] Start: 01-27-2024 Influenza vaccination [facility] Start: 01-27-2024 [facility] Start: 01-25-2024 End: 01-25-2024 Patient encounter procedure 01/25/2024 10:30 AM EDT Office Visit [facility] Orthopedics and Sports Medicine [address] [place] [address] [address] [place] [phone] George Aceves MD [address], [address] [place] [address] [facility] Start: 12-13-2023 End: 03-13-2024 Cobalamin (Vitamin B12) [Mass/volume] in Serum or Plasma VITAMIN B12 Lab Routine Vitamin B12 deficiency Expected: 12/13/2023, Expires: 03/13/2024 [facility] Comment on above: Expected: 12/13/2023, Expires: Start: 11-23-2023 Hemoglobin A1c measurement HbA1C [facility] Start: 11-14-2023 ANNUAL PCP TEAM CHRONIC DISEASE VISIT ANNUAL PCP TEAM CHRONIC DISEASE VISIT [facility] Start: 11-14-2023 BP CONTROLLED (<130/80) BP CONTROLLED (<130/80) [facility] in Start: 05-28-2023 Advance Directive Discussion Advance Directive Discussion [facility] Start: 05-28-2023 Behavioral Health Screening Behavioral Health Screening [facility] Start: 05-28-2023 Medicare Advantage Annual Wellness Visit Medicare [facility] Annual Wellness Visit [facility] Start: 05-28-2023 [facility] Start: 05-15-2023 End: 05-15-2024 CBC W Auto Differential panel - Blood CBC + DIFF Lab Routine Mixed hyperlipidemia Expected: 05/15/2023, Expires: 05/15/2024 [facility] Work Phone: Comment on above: Expected: 05/15/2023, Expires: 4 Start: 05-15-2023 End: 05-15-2024 Comprehensive metabolic 2000 panel - Serum or Plasma COMP METABOLIC PANEL Lab Routine Mixed hyperlipidemia Expected: 05/15/2023, Expires: 05/15/2024 [facility] Work Phone: Comment on above: Expected: 05/15/2023, Expires: 4 Start: 05-15-2023 End: 08-14-2023 Hemoglobin A1c in Blood HGB A1C Lab Routine Type 2 diabetes mellitus with stage 3 chronic kidney disease, without long-term current use of insulin, unspecified whether stage 3a or 3b CKD (HCC) Expected: 05/15/2023, Expires: 08/14/2023 [facility] Work Phone: Comment on above: Expected: 05/15/2023, Expires: 4 Start: 05-15-2023 Hemoglobin A1c measurement HbA1C [facility] Start: 05-15-2023 Hemoglobin A1c/Hemoglobin.total in Blood HBA1C [facility] Start: 05-15-2023 End: 05-15-2024 Lipid 1996 panel - Serum or Plasma LIPID PANEL BASIC Lab Routine Mixed hyperlipidemia Expected: 05/15/2023, Expires: 05/15/2024 [facility] Work Phone: Comment on above: Expected: 05/15/2023, Expires: 4 Start: 05-15-2023 End: 05-15-2024 PSA/PROSTSPECAG SCRN PSA/PROSTSPECAG SCRN Lab Routine Screening for prostate cancer Expected: 05/15/2023, Expires: 05/15/2024 [facility] Work Phone: Comment on above: Expected: 05/15/2023, Expires: 4 Start: 05-15-2023 End: 05-15-2024 Thyrotropin [Units/volume] in Serum or Plasma TSH BLD Lab Routine Screening for thyroid disorder Expected: 05/15/2023, Expires: 05/15/2024 [facility] Work Phone: Comment on above: Expected: 05/15/2023, Expires: 4 Start: 04-24-2023 ANNUAL PCP TEAM CHRONIC DISEASE VISIT ANNUAL PCP TEAM CHRONIC DISEASE VISIT [facility] Start: 04-24-2023 Complete blood count Hemoglobin/Hematocrit [facility] Start: 04-24-2023 COVID-19 VACCINE (4 - Booster for Pfizer series) COVID-19 VACCINE (4 - Booster for Pfizer series) [facility] Comment on above: Postponed from 06/09/2021 (Declined at t his time) Start: 04-24-2023 Covid-19 Vaccine (4 - Pfizer series) Covid-19 Vaccine (4 - Pfizer series) [facility] Comment on above: Postponed from 06/09/2021 (Declined at t his time) Start: 04-24-2023 Creatinine measurement Serum Creatinine [facility] Start: 04-24-2023 Hepatitis B surface antibody level LDL CHOLESTEROL [facility] Start: 01-26-2023 Covid-19 Vaccine () Covid-19 Vaccine () [facility] Start: 01-26-2023 Influenza vaccination Influenza Vaccine (#1) [facility] Start: 10-22-2022 Hemoglobin A1c/Hemoglobin.total in Blood HBA1C [facility] Start: 10-19-2022 Adult depression screening assessment DEPRESSION SCREENING [facility] Start: 10-19-2022 ANNUAL PCP TEAM CHRONIC DISEASE VISIT ANNUAL PCP TEAM CHRONIC DISEASE VISIT [facility] Start: 10-19-2022 BP CONTROLLED (<130/80) BP CONTROLLED (<130/80) [facility] Start: 07-21-2022 ANNUAL PCP TEAM CHRONIC DISEASE VISIT ANNUAL PCP TEAM CHRONIC DISEASE VISIT [facility] Start: 07-21-2022 BP CONTROLLED (<130/80) BP CONTROLLED (<130/80) [facility] Start: 07-14-2022 3 comp foot exam completed DIABETIC FOOT EXAM [facility] Start: 07-14-2022 ANNUAL PCP TEAM CHRONIC DISEASE VISIT ANNUAL PCP TEAM CHRONIC DISEASE VISIT [facility] Start: 07-14-2022 BP CONTROLLED (<130/80) BP CONTROLLED (<130/80) [facility] Start: 07-14-2022 Diabetes: Urine Albumin-Creatinine Ratio for [facility] Diabetes: Urine Albumin-Creatinine Ratio for [facility] Start: 07-14-2022 Diabetic foot examination Diabetic Foot Exam [facility] Start: 07-14-2022 Hepatitis B screening URINE ALBUMIN:CREATININE RATIO [facility] Start: 05-28-2022 ADVANCE DIRECTIVE DISCUSSION ADVANCE DIRECTIVE DISCUSSION [facility] Start: 05-28-2022 DEPRESSION ASSESSMENT DEPRESSION ASSESSMENT [facility] Start: 05-09-2022 ANNUAL PCP TEAM CHRONIC DISEASE VISIT ANNUAL PCP TEAM CHRONIC DISEASE VISIT [facility] Start: 04-25-2022 ANNUAL PCP TEAM CHRONIC DISEASE VISIT ANNUAL PCP TEAM CHRONIC DISEASE VISIT [facility] Start: 04-21-2022 Hemoglobin A1c/Hemoglobin.total in Blood HBA1C [facility] Start: 04-11-2022 End: 06-11-2022 Basic metabolic 2000 panel - Serum or Plasma BASIC METABOLIC PNL Lab Routine Type 2 diabetes mellitus with diabetic neuropathy, without long-term current use of insulin (HCC) Expected: 04/11/2022, Expires: 06/11/2022 [facility] Work Phone: Comment on above: Expected: 04/11/2022, Expires: Start: 04-11-2022 End: 06-11-2022 CBC panel - Blood by Automated count CBC Lab Routine Type 2 diabetes mellitus with diabetic neuropathy, without long-term current use of insulin (HCC) Expected: 04/11/2022, Expires: 06/11/2022 [facility] Work Phone: Comment on above: Expected: 04/11/2022, Expires: 3 Start: 04-11-2022 End: 06-11-2022 SCHEDULE LAB TESTING SCHEDULE LAB TESTING Lab Routine Expected: 04/11/2022, Expires: 06/11/2022 [facility] Work Phone: Comment on above: Expected: 04/11/2022, Expires: 3 Start: 04-11-2022 End: 06-11-2022 Thyrotropin [Units/volume] in Serum or Plasma TSH BLD Lab Routine Hypothyroidism Expected: 04/11/2022, Expires: 06/11/2022 [facility] Work Phone: Comment on above: Expected: 04/11/2022, Expires: 3 Start: 2022 RSV Immunization for Adults (1 - 1-dose 75+ series) RSV Immunization for Adults (1 - 1-dose 75+ series) [facility] Start: 2022 RSV Vaccine (1 - 1-dose 75+ series) RSV Vaccine (1 - 1-dose 75+ series) [facility] Start: 01-26-2022 Influenza vaccination INFLUENZA (#1) [facility] Start: 01-11-2022 Hemoglobin A1c/Hemoglobin.total in Blood HBA1C [facility] Start: 12-31-2021 Hepatitis B surface antibody level LDL CHOLESTEROL [facility] Start: 12-28-2021 ANNUAL PCP TEAM CHRONIC DISEASE VISIT ANNUAL PCP TEAM CHRONIC DISEASE VISIT [facility] Start: 12-28-2021 BP CONTROLLED (<130/80) BP CONTROLLED (<130/80) [facility] Start: 08-12-2021 COVID-19 VACCINE (4 - Booster for Pfizer series) COVID-19 VACCINE (4 - Booster for Pfizer series) [facility] Start: 07-03-2021 Hemoglobin A1c/Hemoglobin.total in Blood HBA1C [facility] Start: 06-28-2021 Adult depression screening assessment DEPRESSION SCREENING [facility] Start: 06-28-2021 ANNUAL PCP TEAM CHRONIC DISEASE VISIT ANNUAL PCP TEAM CHRONIC DISEASE VISIT [facility] Start: 06-28-2021 BP CONTROLLED (<130/80) BP CONTROLLED (<130/80) [facility] Start: 06-09-2021 COVID-19 VACCINE (4 - Booster for Pfizer series) COVID-19 VACCINE (4 - Booster for Pfizer series) [facility] Start: 05-28-2021 ADVANCE DIRECTIVE DISCUSSION ADVANCE DIRECTIVE DISCUSSION [facility] Start: 05-28-2021 DEPRESSION ASSESSMENT DEPRESSION ASSESSMENT [facility] Start: 02-19-2021 COVID-19 VACCINE (3 - Pfizer booster) COVID-19 VACCINE (3 - Pfizer booster) [facility] Start: 01-26-2021 Influenza vaccination [facility] Start: 12-26-2020 HbA1c (Bld) [Mass fraction] HBA1C [facility] Start: 05-19-2020 SHINGRIX VACCINE (2 of 2) SHINGRIX VACCINE (2 of 2) [facility] Start: 05-19-2020 Zoster Vaccines (2 of 2) Zoster Vaccines (2 of 2) [facility] Start: 05-19-2020 [facility] Start: 04-17-2020 PNEUMOCOCCAL: 65+ (2 - PPSV23 if available, else PCV20) PNEUMOCOCCAL: 65+ (2 - PPSV23 if available, else PCV20) [facility] Start: 04-17-2020 PNEUMOCOCCAL: 65+ (2 - PPSV23 or PCV20) PNEUMOCOCCAL: 65+ (2 - PPSV23 or PCV20) [facility] Start: 01-27-2020 Influenza vaccination INFLUENZA (#1) [facility] Start: 06-12-2019 Pneumococcal Vaccine: 50+ (2 of 2 - PPSV23) Pneumococcal Vaccine: 50+ (2 of 2 - PPSV23) [facility] Start: 06-12-2019 Pneumococcal Vaccine: 50+ Years (2 of 2 - PPSV23) Pneumococcal Vaccine: 50+ Years (2 of 2 - PPSV23) [facility] Start: 06-12-2019 Pneumococcal Vaccine: 65+ (2 - PPSV23 or PCV20) Pneumococcal Vaccine: 65+ (2 - PPSV23 or PCV20) [facility] Start: 06-12-2019 Pneumococcal Vaccine: 65+ (2 of 2 - PPSV23 or PCV20) Pneumococcal Vaccine: 65+ (2 of 2 - PPSV23 or PCV20) [facility] Start: 06-12-2019 Pneumococcal Vaccine: 65+ Years (2 of 2 - PPSV23 or PCV20) Pneumococcal Vaccine: 65+ Years (2 of 2 - PPSV23 or PCV20) [facility] Start: 06-12-2019 PNEUMOCOCCAL: 65+ (2 - PPSV23 if available, else PCV20) PNEUMOCOCCAL: 65+ (2 - PPSV23 if available, else PCV20) [facility] Start: 06-12-2019 [facility] Start: 01-26-2019 Influenza vaccination Flu vaccine (#1) [facility] Work Phone: Start: 12-13-2018 Annual Wellness Visit (AWV) Annual Wellness Visit (AWV) [facility] Work Phone: Start: 2012 ADVANCE DIRECTIVE DISCUSSION ADVANCE DIRECTIVE DISCUSSION [facility] Start: 2012 Pneumococcal 65+ years Vaccine (1 of 1 - PPSV23) Pneumococcal 65+ years Vaccine (1 of 1 - PPSV23) [facility] Work Phone: Start: 2012 PNEUMOVAX AGE 65 AND OVER WITH 5YR LOOKBACK (#1) PNEUMOVAX AGE 65 AND OVER WITH 5YR LOOKBACK (#1) [facility] Start: 2007 Hepatitis B Vaccine (1 of 3 - Risk 3-dose series) Hepatitis B Vaccine (1 of 3 - Risk 3-dose series) [facility] Start: 2007 RSV Immunization aged 60 or older (1 - 1-dose 60+ series) RSV Immunization aged 60 or older (1 - 1-dose 60+ series) [facility] Start: 2007 RSV Vaccine (1 - 1-dose 60+ series) RSV Vaccine (1 - 1-dose 60+ series) [facility] Start: 2007 [facility] Start: 1997 Colon cancer screen colonoscopy Colon cancer screen colonoscopy [facility] Work Phone: Start: 1997 Screening for malignant neoplasm of colon [facility] Start: 1997 Shingles Vaccine (1 of 2) Shingles Vaccine (1 of 2) [facility] Work Phone: Start: 1997 SHINGRIX VACCINE (1 of 2) SHINGRIX VACCINE (1 of 2) [facility] Start: 1992 COLOGUARD (FIT-DNA) COLOGUARD (FIT-DNA) [facility] Start: 1992 Colonoscopy COLONOSCOPY [facility] Start: 1992 COLORECTAL CANCER SCREENING COLORECTAL CANCER SCREENING [facility] Start: [address] COLONOGRAPHY [facility] Start: 1992 FECAL OCCULT BLOOD FECAL OCCULT BLOOD [facility] Start: 1992 SIGMOIDOSCOPY SIGMOIDOSCOPY [facility] Start: 1966 DTaP/Tdap/Td Vaccines (1 - Tdap) DTaP/Tdap/Td Vaccines (1 - Tdap) [facility] Start: 1966 Urine microalbumin profile [facility] Start: 1966 [facility] Start: 1965 ANNUAL PCP TEAM CHRONIC DISEASE VISIT ANNUAL PCP TEAM CHRONIC DISEASE VISIT [facility] Start: 1965 BP CONTROLLED (<130/80) BP CONTROLLED (<130/80) [facility] Start: 1965 Hepatitis B surface antibody level LDL CHOLESTEROL [facility] Start: 1965 HEPATITIS C SCREENING HEPATITIS C SCREENING [facility] Start: 1965 Hepatitis C screening [facility] Start: 1959 COVID-19 VACCINE (1) COVID-19 VACCINE (1) [facility] Start: 1959 Depression Screening Depression Screening [facility] Start: 1959 [facility] Start: 1958 DTaP/Tdap/Td vaccine (1 - Tdap) DTaP/Tdap/Td vaccine (1 - Tdap) [facility] Work Phone: Start: 1957 [object Object] DIABETIC FOOT EXAM [facility] Start: 1957 Glaucoma screening Dilated Retinal Exam [facility] Start: 1957 Hepatitis B screening URINE ALBUMIN:CREATININE RATIO [facility] Start: 1957 Hepatitis C antibody, confirmatory test DILATED RETINAL EXAM [facility] Start: 1957 Lipid screen Lipid screen [facility] Work Phone: Start: 1947 ABDOMINAL AORTIC ANEURYSM SCREENING ABDOMINAL AORTIC ANEURYSM SCREENING [facility] Start: 1947 Hepatitis C screen Hepatitis C screen [facility] Work Phone: aPTT in Blood by Coagulation assay APTT Lab STAT Every 6 hours (Lab) until discontinued starting 01/18/2024, 3 completed [facility] Work Phone: Comment on above: Every 6 hours (Lab) until discontinued s tarting 01/18/2024, 3 completed aPTT in Blood by Coagulation assay APTT Lab Timed Every 6 hours (Lab) until discontinued starting 01/18/2024, 1 completed [facility] Comment on above: Every 6 hours (Lab) until discontinued s tarting 01/18/2024, 1 completed End: 02-07-2024 Basic metabolic 1998 panel - Serum or Plasma Basic metabolic panel Lab Routine Daily (Lab) for 3 Weeks starting 01/18/2024 until 02/07/2024, 1 completed [facility] Comment on above: Daily (Lab) for 3 Weeks starting until 02/07/2024, 1 completed End: 02-07-2024 Calcium.ionized [Moles/volume] in Blood Calcium, ionized Lab Routine Daily (Lab) for 3 Weeks starting 01/18/2024 until 02/07/2024, 1 completed [facility] Comment on above: Daily (Lab) for 3 Weeks starting until 02/07/2024, 1 completed End: 05-01-2024 Cardiac holter monitor (3-7 days) [employer] Work Phone: Comment on above: Once for 1 Occurrences starting 05/01/20 until 05/01/2024 End: 01-24-2024 CBC W Auto Differential panel - Blood CBC auto differential Lab Routine Daily (Lab) for 7 Days starting 01/18/2024 until 01/24/2024, 1 completed [employer] [facility] Work Phone: Comment on above: Daily (Lab) for 7 Days starting 01/18/20 until 01/24/2024, 1 completed End: 01-21-2024 CK total and CKMB CK total and CKMB Lab Add-On Every 6 hours (Lab) for 3 Days starting 01/18/2024 until 01/21/2024, 1 completed [facility] Comment on above: Every 6 hours (Lab) for 3 Days starting 01/18/2024 until 01/21/2024, 1 completed End: 01-19-2024 ECG 12 lead ECG 12 lead CV ECG Routine Once for 1 Occurrences starting 01/19/2024 until 01/19/2024 [facility] Comment on above: Once for 1 Occurrences starting 01/19/20 24 until 01/19/2024 ECG 12 lead [facility] Comment on above: Daily until discontinued starting 2023, 1 completed Hemoglobin A1c/Hemoglobin.total in Blood HEMOGLOBIN A1C (POC) Lab Routine Type 2 diabetes mellitus with diabetic neuropathy, without long-term current use of insulin (HCC) Ordered: 11/13/2022 [facility] Work Phone: Comment on above: Ordered: 11/13/2022 Hemoglobin A1c/Hemoglobin.total in Blood HEMOGLOBIN A1C (POC) Lab Routine Type 2 diabetes mellitus with stage 3 chronic kidney disease, without long-term current use of insulin, unspecified whether stage 3a or 3b CKD (HCC) Ordered: 12/13/2023 [facility] Work Phone: Comment on above: Ordered: 12/13/2023 Initiate Oxygen Ther apy Protocol Initiate Oxygen Therapy Protocol Respiratory Care Routine As needed until discontinued starting 01/18/2024 [facility] Comment on above: As needed until discontinued starting Initiate Oxygen Ther apy Protocol Initiate Oxygen Therapy Protocol Respiratory Care Routine As needed until discontinued starting 01/18/2024 [facility] System Work Phone: Comment on above: As needed until discontinued starting End: 02-07-2024 Magnesium [Mass/volume] in Serum or Plasma Magnesium Lab Routine Daily (Lab) for 3 Weeks starting 01/18/2024 until 02/07/2024, 1 completed [facility] Comment on above: Daily (Lab) for 3 Weeks starting 024 until 02/07/2024, 1 completed End: 06-08-2022 Mri spinal canal cervical w/o contrast matrl MRI CERVICAL SPINE WO IVCON Radiology Routine Cervical radiculopathy 1 Occurrences starting 05/09/2021 until 06/08/2022 [facility] Work Phone: Comment on above: 1 Occurrences starting 05/09/2021 until 06/08/2022 End: 02-07-2024 Phosphate [Moles/volume] in Serum or Plasma Phosphorus Lab Routine Daily (Lab) for 3 Weeks starting 01/18/2024 until 02/07/2024, 1 completed [facility] Comment on above: Daily (Lab) for 3 Weeks starting 024 until 02/07/2024, 1 completed End: 01-19-2024 Troponin I.cardiac [Mass/volume] in Serum or Plasma Troponin I Lab Timed Once for 1 Occurrences starting 01/19/2024 until 01/19/2024 [facility] Comment on above: Once for 1 Occurrences starting 01/19/20 until 01/19/2024 End: 01-22-2024 US Heart Transesophageal [facility] Work Phone: End: 04-28-2022 US KIDNEY/BLADDER [facility] Work Phone: Comment on above: 1 Occurrences starting 04/28/2022 until 04/28/2022 End: 09-07-2025 US Lower extremity artery US ARTERIAL PVR LOWER Radiology Routine Pain in both lower extremities 1 Occurrences starting 08/08/2024 until 09/07/2025 [facility] Work Phone: Comment on above: 1 Occurrences starting 08/08/2024 until 09/07/2025 End: 09-14-2025 US Lower extremity artery US ARTERIAL PVR LOWER Radiology Routine PVD (peripheral vascular disease) 1 Occurrences starting 08/15/2024 until 09/14/2025 [facility] Work Phone: Comment on above: 1 Occurrences starting 08/15/2024 until 09/14/2025 [facility] Immunizations Immunization Date Immunization Notes Care Provider Fa cili 03-29-2022 influenza, high-dose , quadrivalent vaccine (FLUZONE HIGH DOSE QUADRIVALENT) [facility] DO Work Phone: [facility] 03-29-2022 influenza virus vacc ine, unspecified formulation [facility] DO Work Phone: [facility] 04-14-2021 COVID-19 vaccine, ag e 12+ yr (go2 media) [facility] DO Work Phone: [facility] 03-24-2020 influenza (aIIV4) vaccine, age 65+ yr, quadrivalent, PF (FLUAD QUADRIVALENT) [facility] DO Work Phone: [facility] 03-24-2020 zoster vaccine recombinant Eric Fidencio DO Work Phone: [facility] 04-17-2019 influenza, high dose seasonal, preservative-free [facility] DO Work Phone: [facility] 04-17-2019 pneumococcal conjuga te vaccine, 13 valent Eric Fidencio DO Work Phone: [facility] 06-23-2013 influenza, seasonal, injectable [facility] Work Phone: [facility] 06-17-2009 novel influenza-H1N1 -09, preservative-free, injectable Eric Fidencio DO Work Phone: [facility] Payers Date Payer Category Payer Medicare HMO [employer] SECURE [id number] 2020 Medicare [id number] 2020 Medicare [id number] 2020 Medicare (Managed Care) [place] MEDIC ARE [id number] 2020 Medicare [id number] 2018 Medicare [employer] ADVANTAGE [employer] xxxxxxxxxxx 2018-Present [phone] [address] [place] [address] xxxxxxxxxxx [id number] Social History Date Type Detail Facility Tobacco smoking stat [facility] Unknown if ever smoked [facility] Sex Assigned At Not on file [employer] Work Phone: Start: 06-28-2020 End: 08-08-2024 Tobacco smoking status ILIS Former smoker [facility] Start: 05-19-1973 End: 05-19-1975 History of tobacco use Current smoker [facility] Start: 05-19-1973 End: 05-19-1975 History of tobacco use Cigarette Smoker [employer] [facility] Phone: Start: 06-28-2020 End: 08-08-2024 Tobacco use and exposure Never used [facility] Start: 06-28-2020 End: 08-08-2024 Alcohol intake Current drinker of alcohol (finding) [facility] Start: 06-28-2020 Alcohol Comment seldom [facility] Start: 1945 Sex Assigned At Male C [facility] Start: 10-09-2021 End: 04-28-2022 Exposure to SARS-CoV-2 (event) Not sure [facility] Start: 01-09-2019 End: 01-18-2024 Tobacco smoking status ILIS Never smoker [facility] Start: 01-09-2019 End: 04-28-2024 Alcohol intake Ex-drinker (finding) [employer] Phone: Start: 01-09-2019 Tobacco Comment smokes 3. 5 packs daily [facility] Work Phone: Start: 04-24-2022 End: 11-13-2022 History of Social function [facility] Start: 04-24-2022 End: 11-13-2022 Tobacco use panel [facility] Adult Depression Screening Assessment 0 [facility] Start: 06-22-2020 Gender identity Identifies as male gender (finding) [facility] Start: 06-22-2020 Sexual orientation Heterosexual (donny angulo) [facility] History of tobacco use Passive smoker [facility] Kony Has the [employer], or [employer] threatened to shut off services in your home in past 12Mo No [facility] Are you now , , , , never or living with a partner? [facility] How often to you hav e a drink containing alcohol? Never [facility] How hard is it for y ou to pay for the very basics like food, housing, medical care, and heating Not very hard [facility] Do you feel stress - tense, restless, nervous, or anxious, or unable to sleep at night because your mind is troubled all the time - these days [OSQ] To some extent [facility] (I/We) worried wheth er (my/our) food would run out before (I/we) got money to buy more. Never true [facility] Start: 12-26-2021 Sex Male (finding) [facility] Procedure Code Equipment Code Equipment Origin al Text Equipment Identifier Dates [id number], [id number] Start: 10-19-2021 End: 08-08-2024 Comment on above: OneTouch Ultra Test strips Take 1 strip 4 times a day by [employer]. route for 90 days. Pt to check blood villafana gar three times daily CHECK BLOOD SUGAR TH REE TIMES DAILY [id number] Start: 01-23-2024 [id number] Start: 01-23-2024 Clinical Notes 07-12-2020 to 09-08-2024 Telephone Encounter - Rachael Saini LPN - 09/08/2024 2:33 PM EDTTelephone Encounter - Rachael Saini LPN - 09/08/2024 2:33 PM EDTTelephone Encounter - Rachael Saini LPN - 09/08/2024 2:32 PM EDT Note Date & Type Note Facility 09-08-2024 Telephone encounter Note Pt was d/c'd from Amlodipine on 09/02/2024 per Cardiology Updated pt medication list per request. [facility] 09-08-2024 Miscellaneous Notes Pt was d/c'd from Amlodipine on 09/02/2024 per Cardiology Updated pt medication list per request. documented in this encounter [facility] 09-08-2024 Telephone encounter Note Pt verified need for medication. Sent to Dr. Nicolas for refill. [facility] 09-08-2024 Miscellaneous Notes Pt verified need for medication. Sent to Dr. Nicolas for refill. documented in this encounter [facility] 09-02-2024 History of Presen t illness Narrative [facility] - [address] [place] [id number] Dept: [phone] Dept Visit type: Established : 1945 Chief Complaint: Chief Complaint Patient presents with Follow-up History of Present Illness: Jorge Salamanca is a 79 y.o. male with a history of coronary artery disease s/p CABG (in situ EPSTEIN to LAD, in situ SUHAS w/rsvg extension to RI, RPDA, RPL sequentially) on 01/23/24, post-op atrial fibrillation, hypertension, hyperlipidemia, type 2 diabetes, and CKD stage 3b who presents for a 2 month follow up. I saw him in the hospital in December when he came in with an NSTEMI. Subsequent cath showed significant coronary artery disease and he ultimately had coronary artery bypass grafting by Dr. Johnson on January 22. He did have some postoperative atrial fibrillation. Last seen in April 2024 when we took him off of his Eliquis and asked him to start aspirin (which he never did start aspirin) in conjunction with his plavix. Today, he denies any cardiac complaints. 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) Hyperlipemia Hypertension Past Surgical History Past Surgical History: Procedure Laterality Date CARDIAC CATHETERIZATION Left 01/18/2024 CARDIAC CATHETERIZATION N/A 01/18/2024 Performed by Nicholas Arriaga MD at [facility] Cardiac [employer]ing [employer] TONSILLECTOMY (HISTORICAL) Family History Family History Problem Relation Name Age of Onset No Known Problems Brother No Known Problems Brother Bipolar disorder Sister Becka Salamanca Arthritis Sister Becka Salamanca Cancer Sister Becka Salamanca Lung cancer Father Russ Salamanca Cancer Father Russ Salamanca Alzheimer's disease Mother Heart failure Paternal Grandfather Mark Salamanca Social History Social History Tobacco Use Smoking status: Former Current packs/day: 0.00 Average packs/day: 0.5 packs/day for 2.0 years (1.0 ttl pk-yrs) Types: Cigarettes Start date: 05/19/1973 Quit date: 05/19/1975 Years since quittin.3 Passive exposure: Current Smokeless tobacco: Never Tobacco comments: Quit smoking: smokes 3.5 packs daily Substance Use Topics Alcohol use: Not Currently Drug use: Never Allergies: Allergies Allergen Reactions Bee Pollen Hives Other Reaction(s): rhinitis Bee Venom Covid-19 (Mrna) Vaccine Other Reaction(s): Intolerance, Myalgia Numbness in hand and pain Medications: Current Outpatient Medications: acetaminophen (Tylenol) 500 MG tablet, every 8 hours., Disp: , Rfl: amLODIPine (Norvasc) 2.5 MG tablet, Take 1 tablet (2.5 mg) by mouth daily., Disp: , Rfl: 0 clopidogrel (Plavix) 75 MG tablet, Take 1 tablet (75 mg) by mouth daily., Disp: , Rfl: 0 gabapentin (Neurontin) 300 MG capsule, Take 600 mg by mouth 2 times daily., Disp: , Rfl: levothyroxine (Synthroid, Levoxyl) 100 MCG tablet, Take 100 mcg by mouth every morning (before breakfast)., Disp: , Rfl: loratadine (Claritin) 10 MG tablet, Take 1 tablet by mouth daily., Disp: , Rfl: metoprolol tartrate (Lopressor) 25 MG tablet, Take 0.5 tablets (12.5 mg) by mouth 2 times daily., Disp: , Rfl: 0 rosuvastatin (Crestor) 40 MG tablet, Take 1 tablet (40 mg) by mouth daily., Disp: , Rfl: 0 aspirin 81 MG chewable tablet, Chew 1 tablet (81 mg) daily., Disp: , Rfl: pantoprazole (ProtoNix) 40 MG EC tablet, Take 1 tablet by mouth daily., Disp: , Rfl: Review of Systems: Review of Systems Constitutional: Negative for activity change, fatigue and unexpected weight change. Respiratory: Negative for cough, chest tightness and shortness of breath. Cardiovascular: Positive for palpitations (rarely feels but none in past two months). Negative for chest pain and leg swelling. Recovering nicely from CABG in December Musculoskeletal: Negative for arthralgias and gait problem. Neurological: Negative for dizziness, syncope and light-headedness. Hematological: Does not bruise/bleed easily. Psychiatric/Behavioral: Negative for dysphoric mood. The patient is not nervous/anxious. All other systems reviewed and are negative. Physical Examination: Vitals: Vitals: 09/02/24 1005 BP: 134/70 BP Location: Left arm Patient Position: Sitting BP Cuff Size: Adult Pulse: 60 Resp: 18 Weight: 188 lb (85.3 kg) Height: 5' 6 (1.676 m) Body mass index is 30.34 kg/m . Physical Exam Vitals reviewed. Constitutional: General: He is not in acute distress. Appearance: He is well-developed. Neck: Vascular: No carotid bruit or JVD. Cardiovascular: Rate and Rhythm: Normal rate and regular rhythm. No extrasystoles are present. Pulses: Carotid pulses are 2+ on the right side and 2+ on the left side. Heart sounds: Normal heart sounds. No murmur heard. Pulmonary: Effort: Pulmonary effort is normal. Breath sounds: Normal breath sounds. Abdominal: General: Bowel sounds are normal. Palpations: Abdomen is soft. Musculoskeletal: Right lower leg: No edema. Left lower leg: No edema. Skin: General: Skin is warm and dry. Capillary Refill: Capillary refill takes less than 2 seconds. Neurological: Mental Status: He is alert and oriented to person, place, and time. Gait: Gait is intact. Comments: tremor Psychiatric: Attention and Perception: Attention normal. Mood and Affect: Mood normal. Behavior: Behavior normal. Behavior is cooperative. Laboratory Tests: Lab Results Component Value Date WBC 6.6 02/11/2024 HGB 9.8 (L) 02/11/2024 HCT 30.5 (L) 02/11/2024 MCV 85.0 02/11/2024 PLT 368 02/11/2024 Lab Results Component Value Date GLUCOSE 96 02/11/2024 CALCIUM 8.2 (L) 02/11/2024 NA 136 02/11/2024 K 4.8 02/11/2024 CO2 17 (L) 02/11/2024 CL 112 (H) 02/11/2024 BUN 27 (H) 02/11/2024 CREATININE 2.06 (H) 02/11/2024 Lab Results Component Value Date CHOL 180 01/18/2024 Lab Results Component Value Date TRIG 100 01/18/2024 Lab Results Component Value Date HDL 33 (L) 01/18/2024 Lab Results Component Value Date LDLCALC 127 (H) 01/18/2024 NT PRO BNP Date Value Ref Range Status 01/17/2024 1,340 (H) <20 - 300 pg/mL Final Cardiac Tests: EC04/28/24 Event Monitor: 05/14/2024 Summary: Holter monitor demonstrates sinus rhythm averaging 69 bpm with a very low burden of atrial and ventricular ectopy. Last Echo: 02/01/24 Left Ventricle: Normal left ventricular systolic function. Normal wall motion. Right Ventricle: Right ventricle size is normal. Normal systolic function. Aortic Valve: Mild (1+) regurgitation. Technically difficult study. Last stress test: NA Last cardiac catheterization: 01/18/2024 NSTEMI due to 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 LM with 70% distal stenosis LAD with ostial and proximal 85% stenosis, 80% mid segment stenosis and 50% distal stenosis Ramus intermedius with an 80% proximal stenosis and 70% mid to distal segment stenoiss Left circumflex with an 80% mid segment stenosis RCA with 99% distal segment stenosis at the bifurcation to the RPDA and RPLV. 90% stenosis of proximal RPL and 100% TURBINATED BONE GRINDER of ostial RPDA--distal vessel filling by [id number] collaterals. Normal LVEDP; no aortic stenosis. Assessment and Plan: Coronary artery disease: S/p CABG on 01/23/2024. Denies angina and he has recovered very well from his CABG. Continue Plavix 75 mg daily for 1 year, and no aspirin currently due to being on Eliquis Continue beta dr and statin therapy Postoperative atrial fibrillation: The patient did have episodes of atrial fibrillation and flutter after surgery, and he was having some palpitations in the first month afterwards but has not had any recently. We had him wear a monitor which showed no recurrence of Afib so we stopped his Eliquis Restart aspirin 81mg daily Should call office if he notices palpitations Hypertension: Controlled on current regimen. Continue Amlodipine 2.5 mg daily Continue Metoprolol 25 mg bid Hyperlipidemia: Recent lipids in April show his LDL is 65. Continues Rosuvastatin 40 mg daily Watch diet and maintain current weight Thanks for having me partake in this patient's care. This note was dictated by speech recognition. 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 I, LINUS Adhikari CNP, furnish ongoing care related to Jorge Salamanca single, serious and complex condition(s) CAD S/P CABG, paroxysmal atrial fib. I assume responsibility for the patient's ongoing medical care of this condition. documented in this encounter [facility] 08-15-2024 Telephone encounter Note Faxed updated order to [phone] and received Transmission Ok report at 3:06pm. Bo Mccarthy [facility] 08-15-2024 Miscellaneous Notes Faxed updated order to [phone] and received Transmission Ok report at 3:06pm. Bo Mccarthy New order changed please fax [facility] called in regards to the order and because they did not receive the updated order in time they had to reschedule the patient to the 29th of this month. US arterial PVR Lower being done at [facility]. [facility] and stated that the insurance won't accept pain as the diagnosis. She said we need to change the diagnosis and resend the order to fac [phone]. Nadia Conte documented in this encounter [facility] 08-15-2024 Telephone encounter Note New order changed please fax [facility] 08-13-2024 Telephone encounter Note [facility] called in regards to the order and because they did not receive the updated order in time they had to reschedule the patient to the 29th of this month. [facility] 08-12-2024 Telephone encounter Note US arterial PVR Lower being done at [facility]. [facility] ([facility]) and stated that the insurance won't accept pain as the diagnosis. She said we need to change the diagnosis and resend the order to fac [phone]. Nadia Conte [facility] 08-11-2024 Telephone encounter Note Ezio bello reached back out in regards to the US order. They have received the fax and got the patient scheduled for August 13 at 11:20am but when checking their insurance they ran it through and it came up showing the code for pain in R & L leg do not pass medical necessity. It will need to be corrected or Medicare might not cover it. If/when corrected they request it be faxed to [facility]. Thanks. Bo Mccarthy [facility] 08-11-2024 Miscellaneous Notes Ezoi bello reached back out in regards to the US order. They have received the fax and got the patient scheduled for August 13 at 11:20am but when checking their insurance they ran it through and it came up showing the code for pain in R & L leg do not pass medical necessity. It will need to be corrected or Medicare might not cover it. If/when corrected they request it be faxed to [facility] [employer]. Thanks. Bo Mccarthy Spoke to rep from [employer] in regards to patient. They were requesting the patients US order be faxed which I did and received OK Transmission report at 11:18am. Bo Mccarthy documented in this encounter [facility] 08-11-2024 Telephone encounter Note Spoke to rep from [employer] in regards to patient. They were requesting the patients US order be faxed which I did and received OK Transmission report at 11:18am. Bo Mccarthy [facility] 08-08-2024 Note HNO ID: [id number] Author: ?, ?, ? Service: ? Author Type: ? Type: Progress Notes Filed: 08/08/2024 14:58 Note Text: [facility] [place] DO Fidencio [address] [place] [address] Date of Evaluation: 08/08/2024 Patient Name: Jorge Salamanca : 1945 Chief Complaint: Patient presents with: Follow Up: After assisted living. [facility]. Left the facility 08/06/24. Patient states since leaving he has had no medications. Subjective Mr. Salamanca is a 79 year old male who presents with the following complaint(s): The history is provided by the patient. No workforce planner was used. Thyroid Problem Presents for follow-up visit. Patient reports no anxiety, fatigue or palpitations. Hypertension This is a chronic problem. The current episode started more than 1 year ago. Pertinent negatives include no chest pain, headaches, palpitations or shortness of breath. Identifiable causes of hypertension include a thyroid problem. Diabetes He presents for his follow-up diabetic visit. He has type 2 diabetes mellitus. Pertinent negatives for hypoglycemia include no dizziness, headaches or nervousness/anxiousness. Pertinent negatives for diabetes include no chest pain, no fatigue and no weakness. Hypercholesterolemia This is a chronic problem. The current episode started more than 1 year ago. Pertinent negatives include no chest pain or shortness of breath. Atrial Fibrillation This is a chronic problem. Associated symptoms include an irregular heartbeat. Pertinent negatives include no anxiety, chest pain, coughing, dizziness, numbness, shortness of breath or weakness. Leg Pain The pain is present in the right lower leg and left lower leg. This is a chronic problem. There has been no history of extremity trauma. The problem occurs daily. The problem has been unchanged. Pertinent negatives include no numbness. The symptoms are aggravated by activity (walking). Review of Systems Constitutional: Negative for fatigue and unexpected weight change. HENT: Negative for nosebleeds. Eyes: Negative for redness and visual disturbance. Respiratory: Negative for apnea, cough and shortness of breath. Cardiovascular: Negative for chest pain, palpitations and leg swelling. Neurological: Negative for dizziness, weakness, light-headedness, numbness and headaches. Hematological: Does not bruise/bleed easily. Psychiatric/Behavioral: The patient is not nervous/anxious. PAST MEDICAL HISTORY Diagnosis Date Arthritis Atrial fibrillation (HCC) after surgery. Backache Benign essential hypertension Diarrhea Hypothyroidism Idiopathic peripheral autonomic neuropathy Impotence of organic origin Malaise and fatigue Migraine with aura Mixed hyperlipidemia Obesity Pain in joint involving ankle and foot Type 2 diabetes mellitus without complication (HCC) PAST SURGICAL HISTORY Procedure Laterality Date HEART SURGERY HX 2023 CABG (coronary artery bypass graft) TONSILLECTOMY AND ADENOIDECTOMY FAMILY HISTORY Problem Relation Age of Onset Lung Cancer Father Social History Tobacco Use Smoking status: Former Current packs/day: 0.00 Types: Cigarettes Quit date: 05/19/1975 Years since quittin.2 Smokeless tobacco: Never Vaping Use Vaping status: Never Used Substance Use Topics Alcohol use: Yes Comment: seldom Drug use: Never Current Outpatient Medications Medication Sig acetaminophen (TYLENOL ORAL) Take by mouth. 2 po q 8 hours aspirin, enteric coated (ASPIRIN, ENTERIC COATED) 81 mg EC tablet Take 81 mg by mouth once daily. amiodarone (PACERONE) 200 mg tablet Take 1 tablet by mouth once daily. amiodarone (PACERONE) 200 mg tablet Take 1 tablet by mouth once daily. amLODIPine (NORVASC) 2.5 mg tablet Take 1 tablet by mouth once daily. amLODIPine (NORVASC) 2.5 mg tablet Take 1 tablet by mouth once daily. clopidogrel (PLAVIX) 75 mg tablet Take 1 tablet by mouth once daily. clopidogrel (PLAVIX) 75 mg tablet Take 1 tablet by mouth once daily. gabapentin (NEURONTIN) 400 mg capsule Take 1 capsule by mouth two times a day for 90 days. gabapentin (NEURONTIN) 400 mg capsule Take 1 capsule by mouth two times a day for 30 days. levothyroxine (SYNTHROID) 100 mcg tablet Take 1 tablet by mouth once daily. levothyroxine (SYNTHROID) 100 mcg tablet Take 1 tablet by mouth once daily. loratadine (CLARITIN) 10 mg tablet Take 1 tablet by mouth once daily. loratadine (CLARITIN) 10 mg tablet Take 1 tablet by mouth once daily. metoprolol tartrate, short acting, (LOPRESSOR) 25 mg tablet Take 0.5 tablets by mouth two times a day. metoprolol tartrate, short acting, (LOPRESSOR) 25 mg tablet Take 0.5 tablets by mouth two times a day. pantoprazole DR (PROTONIX) 40 mg tablet Take 1 tablet by mouth once daily. pantoprazole DR (PROTONIX) 40 mg tablet Take 1 (more content not included)... [facility] 08-08-2024 History of Presen t illness Narrative Images from the original note were not included. [facility] [address] [place] [address] Date of Evaluation: 08/08/2024 Patient Name: Jorge Salamanca : 1945 Chief Complaint: Patient presents with: Follow Up: After assisted living. [facility]. Left the facility 08/06/24. Patient states since leaving he has had no medications. Subjective Mr. Salamanca is a 79 year old male who presents with the following complaint(s): The history is provided by the patient. No workforce planner was used. Thyroid Problem Presents for follow-up visit. Patient reports no anxiety, fatigue or palpitations. Hypertension This is a chronic problem. The current episode started more than 1 year ago. Pertinent negatives include no chest pain, headaches, palpitations or shortness of breath. Identifiable causes of hypertension include a thyroid problem. Diabetes He presents for his follow-up diabetic visit. He has type 2 diabetes mellitus. Pertinent negatives for hypoglycemia include no dizziness, headaches or nervousness/anxiousness. Pertinent negatives for diabetes include no chest pain, no fatigue and no weakness. Hypercholesterolemia This is a chronic problem. The current episode started more than 1 year ago. Pertinent negatives include no chest pain or shortness of breath. Atrial Fibrillation This is a chronic problem. Associated symptoms include an irregular heartbeat. Pertinent negatives include no anxiety, chest pain, coughing, dizziness, numbness, shortness of breath or weakness. Leg Pain The pain is present in the right lower leg and left lower leg. This is a chronic problem. There has been no history of extremity trauma. The problem occurs daily. The problem has been unchanged. Pertinent negatives include no numbness. The symptoms are aggravated by activity (walking). Review of Systems Constitutional: Negative for fatigue and unexpected weight change. HENT: Negative for nosebleeds. Eyes: Negative for redness and visual disturbance. Respiratory: Negative for apnea, cough and shortness of breath. Cardiovascular: Negative for chest pain, palpitations and leg swelling. Neurological: Negative for dizziness, weakness, light-headedness, numbness and headaches. Hematological: Does not bruise/bleed easily. Psychiatric/Behavioral: The patient is not nervous/anxious. PAST MEDICAL HISTORY Diagnosis Date Arthritis Atrial fibrillation (HCC) after surgery. Backache Benign essential hypertension Diarrhea Hypothyroidism Idiopathic peripheral autonomic neuropathy Impotence of organic origin Malaise and fatigue Migraine with aura Mixed hyperlipidemia Obesity Pain in joint involving ankle and foot Type 2 diabetes mellitus without complication (HCC) PAST SURGICAL HISTORY Procedure Laterality Date HEART SURGERY HX 2023 CABG (coronary artery bypass graft) TONSILLECTOMY & ADENOIDECTOMY <AGE 14 FAMILY HISTORY Problem Relation Age of Onset Lung Cancer Father Social History Tobacco Use Smoking status: Former Current packs/day: 0.00 Types: Cigarettes Quit date: 05/19/1975 Years since quittin.2 Smokeless tobacco: Never Vaping Use Vaping status: Never Used Substance Use Topics Alcohol use: Yes Comment: seldom Drug use: Never Current Outpatient Medications Medication Sig acetaminophen (TYLENOL ORAL) Take by mouth. 2 po q 8 hours aspirin, enteric coated (ASPIRIN, ENTERIC COATED) 81 mg EC tablet Take 81 mg by mouth once daily. amiodarone (PACERONE) 200 mg tablet Take 1 tablet by mouth once daily. amiodarone (PACERONE) 200 mg tablet Take 1 tablet by mouth once daily. amLODIPine (NORVASC) 2.5 mg tablet Take 1 tablet by mouth once daily. amLODIPine (NORVASC) 2.5 mg tablet Take 1 tablet by mouth once daily. clopidogrel (PLAVIX) 75 mg tablet Take 1 tablet by mouth once daily. clopidogrel (PLAVIX) 75 mg tablet Take 1 tablet by mouth once daily. gabapentin (NEURONTIN) 400 mg capsule Take 1 capsule by mouth two times a day for 90 days. gabapentin (NEURONTIN) 400 mg capsule Take 1 capsule by mouth two times a day for 30 days. levothyroxine (SYNTHROID) 100 mcg tablet Take 1 tablet by mouth once daily. levothyroxine (SYNTHROID) 100 mcg tablet Take 1 tablet by mouth once daily. loratadine (CLARITIN) 10 mg tablet Take 1 tablet by mouth once daily. loratadine (CLARITIN) 10 mg tablet Take 1 tablet by mouth once daily. metoprolol tartrate, short acting, (LOPRESSOR) 25 mg tablet Take 0.5 tablets by mouth two times a day. metoprolol tartrate, short acting, (LOPRESSOR) 25 mg tablet Take 0.5 tablets by mouth two times a day. pantoprazole DR (PROTONIX) 40 mg tablet Take 1 tablet by mouth once daily. pantoprazole DR (PROTONIX) 40 mg tablet Take 1 tablet by mouth once daily. rosuvastatin (CRESTOR) 40 mg tablet Take 1 tablet by mouth once daily. rosuvastatin (CRESTOR) 40 mg tablet Take 1 tablet by mouth once daily. No current facility-administered medications for this visit. I have confirmed and edited as necessary the past medical, family and social histories, HPI, and ROS obtained by others. Objective BP 122/68 Pulse 61 Temp 98.1 Ht 5' 6 (1.68m) Wt 187 lb (84.8kg) SpO2 96% BMI 30.20 kg/(m^2). Physical Exam Vitals and nursing note reviewed. Constitutional: General: He is not in acute distress. Appearance: Normal appearance. He is well-developed. He is not ill-appearing. HENT: Head: Normocephalic. Nose: Nose normal. Mouth/Throat: Pharynx: Uvula midline. Eyes: General: Lids are normal. Vision grossly intact. Gaze aligned appropriately. Extraocular Movements: Extraocular movements intact. Conjunctiva/sclera: Conjunctivae normal. Pupils: Pupils are equal, round, and reactive to light. Neck: Thyroid: No thyroid mass, thyromegaly or thyroid tenderness. Trachea: Trachea and phonation normal. Cardiovascular: Rate and Rhythm: Normal rate and regular rhythm. Pulses: Normal pulses. Heart sounds: Normal heart sounds. Pulmonary: Effort: Pulmonary effort is normal. Breath sounds: Normal breath sounds. Musculoskeletal: General: Normal range of motion. Right shoulder: Normal. Left shoulder: Normal. Cervical back: Normal, full passive range of motion without pain and neck supple. No spinous process tenderness. Thoracic back: Normal. Lumbar back: Normal. Right knee: Normal. Left knee: Normal. Right lower leg: No edema. Left lower leg: No edema. Skin: General: Skin is warm and dry. Neurological: General: No focal deficit present. Mental Status: He is alert and oriented to person, place, and time. Mental status is at baseline. Sensory: Sensation is intact. Motor: Motor function is intact. Psychiatric: Attention and Perception: Attention and perception normal. Mood and Affect: Mood normal. Speech: Speech normal. Behavior: Behavior normal. Thought Content: Thought content normal. Judgment: Judgment normal. Data Reviewed: Most recent labs and imaging results. ASSESSMENT/PLAN: 1. Benign essential hypertension - ICD9: 401.1, ICD10: I10 (primary diagnosis) - Controlled - Continue current medications - Recommend home blood pressure monitoring, to bring results to next visit - Encouraged sodium restriction, DASH or Mediterranean diet - Recommend regular aerobic exercise 2. Acquired hypothyroidism - ICD9: 244.9, ICD10: E03.9 - Instructed patient on importance of taking on an empty stomach either first thing in the morning or at bedtime. - continue current dose of Synthroid - LEVOTHYROXINE 100 MCG TABLET - LEVOTHYROXINE 100 MCG TABLET 3. Type 2 diabetes mellitus with stage 3 chronic kidney disease, without long-term current use of insulin, unspecified whether stage 3a or 3b CKD (HCC) - ICD9: 250.40, 585.3, ICD10: E11.22, N18.30 - Controlled - Continue current medications - Blood glucose monitoring on a three times daily schedule - Counseled on healthy diet and regular exercise - Discussed need for and benefit of weight loss. BMI 30.18 kg/(m^2) - Smoking cessation encouraged; discussed risks to health and quitting strategies. Patient is - HEMOGLOBIN A1C (POC) 4. Mixed hyperlipidemia - ICD9: 272.2, ICD10: E78.2 - Continue current medications - Counseled on healthy diet and regular exercise 5. Paroxysmal atrial fibrillation (HCC) - ICD9: 427.31, ICD10: I48.0 - Managed by Cardiology. 6. Stage 3b chronic kidney disease (HCC) - ICD9: 585.3, ICD10: N18.32 - Managed by Neuropathy 7. 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 - ICD9: 414.01, ICD10: I25.10 - Managed by Cardiology. 8. Pain in both lower extremities - ICD9: 729.5, ICD10: M79.604, M79.605 - Obtain US - US ARTERIAL PVR LOWER 9. Class 1 obesity with body mass index (BMI) of 30.0 to 30.9 in adult, unspecified obesity type, unspecified whether serious comorbidity present - ICD9: 278.00, V85.30, ICD10: E66.811, Z68.30 Eric Nicolas DO Return in about 6 months (around 02/08/2025). Attestation: Scribe Attestation: The patient is seen and examined by Dr. Nicolas and the following reflects his/her service. Scribed by Luigi Phan August 08, 2024 10:05 AMProvider Attestation: I, Eric Nicolas DO personally performed the services described in this documentation. All medical record entries made by the scribe were at my direction and in my presence. I have reviewed the chart and discharge instructions (if applicable) and agree that the record reflects my personal performance and is accurate and complete. Electronically Signed: Eric Nicolas DO, August 08, 2024 10:12 AM documented in this encounter [facility] 06-04-2024 Telephone encounter Note Received message from [facility] requesting the order for the medication changes be faxed to them. Faxed Dr. Azar's comment about medication changes along with last OV note from 04-28-24 to [facility] ([phone]). Sending as an fyi [facility] 06-04-2024 Miscellaneous Notes Received message from [facility] requesting the order for the medication changes be faxed to them. Faxed Dr. Azar's comment about medication changes along with last OV note from 04-28-24 to [facility] ([phone]). Sending as an fyi Called patient and informed him of monitor results per Dr. Azar's note. Patient is currently living at [facility] living in [place] and requested I call them with the medication changes. Called [facility] and patient's nurse was in the middle of a med pass so left a voicemail informing her of medication recommendations. Left call back number for any questions or if they need any documentation. ----- Message from Gustavo Azar MD sent at 05/30/2024 4:47 PM EST ----- His monitor shows no atrial fibrillation. May stop Eliquis and add aspirin to the Plavix. documented in this encounter [facility] 06-02-2024 Telephone encounter Note Called patient and informed him of monitor results per Dr. Azar's note. Patient is currently living at [facility] assisted [facility] in [place] and requested I call them with the medication changes. Called [facility] and patient's nurse was in the middle of a med pass so left a voicemail informing her of medication recommendations. Left call back number for any questions or if they need any documentation. [facility] 06-02-2024 Telephone encounter Note ----- Message from Gustavo Azar MD sent at 05/30/2024 4:47 PM EST ----- His monitor shows no atrial fibrillation. May stop Eliquis and add aspirin to the Plavix. [facility] 04-28-2024 History of Presen t illness Narrative [facility] - [address] [place] [id number] Dept: [phone] Dept Visit type: Established : 1945 Chief Complaint: Chief Complaint Patient presents with Follow-up History of Present Illness: Jorge Salamanca is a 79 y.o. male with a history of coronary artery disease s/p CABG (in situ EPSTEIN to LAD, in situ SUHAS w/rsvg extension to RI, RPDA, RPL sequentially) on 01/23/24, post-op atrial fibrillation, hypertension, hyperlipidemia, type 2 diabetes, and CKD stage 3b who presents for a 2 month follow up. I saw him in the hospital in December when he came in with an NSTEMI. Subsequent cath showed significant coronary artery disease and he ultimately had coronary artery bypass grafting by Dr. Johnson on January 22. He did have some postoperative atrial fibrillation but this is settled down and he was last seen in our office for follow-up about 2 months ago at which point he was doing really well. He has continued to do very well and has been very busy around the apartment of his assisted living facility ( with the help of his brother in law) and he feels OK with this. His only three days before he came in to the hospital in December. He currently denies any cardiac symptoms. He is unaware of any recurrence of atrial fibrillation since he was in the hospital. EKG shows normal sinus rhythm at 60 beats a minute, left anterior fascicular block, nonspecific T wave change. 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) Hyperlipemia Hypertension Past Surgical History Past Surgical History: Procedure Laterality Date CARDIAC CATHETERIZATION Left 01/18/2024 CARDIAC CATHETERIZATION N/A 01/18/2024 Performed by Nicholas Arriaga MD at [facility] Cardiac Buffing And Polishing Wheel Repairer TONSILLECTOMY (HISTORICAL) Family History Family History Problem Relation Name Age of Onset No Known Problems Brother No Known Problems Brother Bipolar disorder Sister Becka Salamanca Arthritis Sister Becka Salamanca Cancer Sister Becka Salamanca Lung cancer Father Russ Salamanca Cancer Father Russ Salamanca Alzheimer's disease Mother Heart failure Paternal Grandfather Mark Salamanca Social History Social History Tobacco Use Smoking status: Former Current packs/day: 0.00 Average packs/day: 0.5 packs/day for 2.0 years (1.0 ttl pk-yrs) Types: Cigarettes Start date: 05/19/1973 Quit date: 05/19/1975 Years since quittin.9 Passive exposure: Current Smokeless tobacco: Never Tobacco comments: Quit smoking: smokes 3.5 packs daily Substance Use Topics Alcohol use: Not Currently Drug use: Never Allergies: Allergies Allergen Reactions Bee Pollen Hives Other Reaction(s): rhinitis Bee Venom Covid-19 (Mrna) Vaccine Other Reaction(s): Intolerance, Myalgia Numbness in hand and pain Medications: Current Outpatient Medications: acetaminophen (Tylenol) 500 MG tablet, every 8 hours., Disp: , Rfl: amiodarone (Pacerone) 200 MG tablet, Take 1 tablet (200 mg) by mouth daily for 21 doses., Disp: , Rfl: amLODIPine (Norvasc) 2.5 MG tablet, Take 1 tablet (2.5 mg) by mouth daily., Disp: , Rfl: 0 apixaban (Eliquis) 5 MG tablet, Take 1 tablet (5 mg) by mouth 2 times daily., Disp: , Rfl: 0 clopidogrel (Plavix) 75 MG tablet, Take 1 tablet (75 mg) by mouth daily., Disp: , Rfl: 0 cyclobenzaprine (Flexeril) 5 MG tablet, Take 5 mg by mouth 3 times daily as needed for muscle spasms., Disp: , Rfl: gabapentin (Neurontin) 300 MG capsule, Take 600 mg by mouth 2 times daily., Disp: , Rfl: levothyroxine (Synthroid, Levoxyl) 100 MCG tablet, Take 100 mcg by mouth every morning (before breakfast)., Disp: , Rfl: lidocaine (Lidoderm) 5 % patch, Apply 1 patch topically daily., Disp: , Rfl: loratadine (Claritin) 10 MG tablet, Take 1 tablet by mouth daily., Disp: , Rfl: metoprolol tartrate (Lopressor) 25 MG tablet, Take 0.5 tablets (12.5 mg) by mouth 2 times daily., Disp: , Rfl: 0 pantoprazole (ProtoNix) 40 MG EC tablet, Take 1 tablet by mouth daily., Disp: , Rfl: rosuvastatin (Crestor) 40 MG tablet, Take 1 tablet (40 mg) by mouth daily., Disp: , Rfl: 0 Review of Systems: Review of Systems Constitutional: Negative for activity change, fatigue and unexpected weight change. Respiratory: Negative for cough, chest tightness and shortness of breath. Cardiovascular: Positive for palpitations (rarely feels but none in past two months). Negative for chest pain and leg swelling. Recovering nicely from CABG in December Musculoskeletal: Negative for arthralgias and gait problem (Uses walker at facility mostly for balance). Neurological: Negative for dizziness, syncope and light-headedness. Hematological: Does not bruise/bleed easily. Psychiatric/Behavioral: Negative for dysphoric mood. The patient is not nervous/anxious. All other systems reviewed and are negative. Physical Examination: Vitals: Vitals: 04/28/24 0912 BP: 126/68 BP Location: Left arm Patient Position: Sitting BP Cuff Size: Adult Pulse: 60 Weight: 174 lb 1.6 oz (79 kg) Height: 5' 6 (1.676 m) Body mass index is 28.1 kg/m . Physical Exam Vitals reviewed. Constitutional: General: He is not in acute distress. Appearance: He is well-developed. Neck: Vascular: No carotid bruit or JVD. Cardiovascular: Rate and Rhythm: Normal rate and regular rhythm. No extrasystoles are present. Pulses: Carotid pulses are 2+ on the right side and 2+ on the left side. Heart sounds: Normal heart sounds. No murmur heard. Pulmonary: Effort: Pulmonary effort is normal. Breath sounds: Normal breath sounds. Chest: Comments: Mid-sternal incision healing Abdominal: General: Bowel sounds are normal. Palpations: Abdomen is soft. Musculoskeletal: Right lower leg: No edema. Left lower leg: No edema. Skin: General: Skin is warm and dry. Capillary Refill: Capillary refill takes less than 2 seconds. Comments: Surgical wounds well healed Neurological: Mental Status: He is alert and oriented to person, place, and time. Gait: Gait is intact. Psychiatric: Attention and Perception: Attention normal. Mood and Affect: Mood normal. Behavior: Behavior normal. Behavior is cooperative. Laboratory Tests: Lab Results Component Value Date WBC 6.6 02/11/2024 HGB 9.8 (L) 02/11/2024 HCT 30.5 (L) 02/11/2024 MCV 85.0 02/11/2024 PLT 368 02/11/2024 Lab Results Component Value Date GLUCOSE 96 02/11/2024 CALCIUM 8.2 (L) 02/11/2024 NA 136 02/11/2024 K 4.8 02/11/2024 CO2 17 (L) 02/11/2024 CL 112 (H) 02/11/2024 BUN 27 (H) 02/11/2024 CREATININE 2.06 (H) 02/11/2024 Lab Results Component Value Date CHOL 180 01/18/2024 Lab Results Component Value Date TRIG 100 01/18/2024 Lab Results Component Value Date HDL 33 (L) 01/18/2024 Lab Results Component Value Date LDLCALC 127 (H) 01/18/2024 NT PRO BNP Date Value Ref Range Status 01/17/2024 1,340 (H) <20 - 300 pg/mL Final Cardiac Tests: EC04/28/24 Last Echo: 02/01/24 Left Ventricle: Normal left ventricular systolic function. Normal wall motion. Right Ventricle: Right ventricle size is normal. Normal systolic function. Aortic Valve: Mild (1+) regurgitation. Technically difficult study. Last stress test: NA Last cardiac catheterization: 01/18/2024 NSTEMI due to 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 LM with 70% distal stenosis LAD with ostial and proximal 85% stenosis, 80% mid segment stenosis and 50% distal stenosis Ramus intermedius with an 80% proximal stenosis and 70% mid to distal segment stenoiss Left circumflex with an 80% mid segment stenosis RCA with 99% distal segment stenosis at the bifurcation to the RPDA and RPLV. 90% stenosis of proximal RPL and 100% TURBINATED BONE GRINDER of ostial RPDA--distal vessel filling by [id number] collaterals. Normal LVEDP; no aortic stenosis. Assessment and Plan: Coronary artery disease: S/p CABG on 01/23/2024. Denies angina and he has recovered very well from his CABG. Continue Plavix 75 mg daily for 1 year, and no aspirin currently due to being on Eliquis Continue beta rd and statin therapy Postoperative atrial fibrillation: The patient did have episodes of atrial fibrillation and flutter after surgery, and he was having some palpitations in the first month afterwards but has not had any recently. If we can document that he has had no recurrence would be able to get him off Eliquis. Check a 7-day holter If no recurrence of afib, will get him off of Eliquis and back on aspirin with his Plavix Hypertension: Controlled on current regimen. Continue Amlodipine 2.5 mg daily Continue Metoprolol 25 mg bid Hyperlipidemia: Last lipid panel from December 2023 showed LDL 127 and HDL 33. Continues Rosuvastatin 40 mg daily Repeat lipid panel now Watch diet and maintain current weight Thanks for having me partake in this patient's care. Gustavo Azar MD, [facility] This note was dictated by speech recognition. 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 I, Gustavo Azar MD, furnish ongoing care related to Jorge Salamanca single, serious and complex condition(s) CAD S/P CABG, paroxysmal atrial fib. I assume responsibility for the patient's ongoing medical care of this condition. documented in this encounter [facility] 03-07-2024 Note Patient Choice Patient Name: JORGE SALAMANCA Date of : 1945 All Providers Sent Referral Name: [facility] At Home Phone: [phone] Address: [address] [place] [address] 03-05-2024 History of Presen t illness Narrative [facility] Medical [facility] - [address] [facility] [address] Dept: [phone] Dept Visit type: Established : 1945 Chief Complaint: Chief Complaint Patient presents with Hospital Follow-up History of Present Illness: Jorge Salamanca is a 78 y.o. male who comes to the office today as a status post hospital visit. He has a history of hypertension, hyperlipidemia, type 2 diabetes, CKD stage IIIb. He was admitted for chest pain. Underwent an echocardiogram and heart cath showing that he had multivessel disease. Underwent CABG on January 23, 2024. He did have postoperative atrial fibrillation and anemia. He is now back in follow-up. He is now about 6 weeks post CABG. Currently in an assisted living. Currently getting physical therapy. Not able to go to cardiac rehab yet. His sister is present for today's office visit. No cardiac complaints. Getting stronger each day. a couple of days prior to him needing his bypass. 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) Hyperlipemia Hypertension Past Surgical History Past Surgical History: Procedure Laterality Date CARDIAC CATHETERIZATION Left 01/18/2024 CARDIAC CATHETERIZATION N/A 01/18/2024 Performed by Nicholas Arriaga MD at [facility] Cardiac Buffing And Polishing Wheel Repairer TONSILLECTOMY (HISTORICAL) Family History Family History Problem Relation Name Age of Onset No Known Problems Brother No Known Problems Brother Bipolar disorder Sister Arthritis Sister Lung cancer Father Alzheimer's disease Mother Cancer Father Social History Social History Tobacco Use Smoking status: Never Passive exposure: Current Smokeless tobacco: Never Tobacco comments: Quit smoking: smokes 3.5 packs daily Substance Use Topics Alcohol use: Not Currently Drug use: Never Allergies: Allergies Allergen Reactions Bee Pollen Hives Other Reaction(s): rhinitis Bee Venom Covid-19 (Mrna) Vaccine Other Reaction(s): Intolerance, Myalgia Numbness in hand and pain Medications: Current Outpatient Medications: acetaminophen (Tylenol) 500 MG tablet, every 8 hours., Disp: , Rfl: amiodarone (Pacerone) 200 MG tablet, Take 1 tablet (200 mg) by mouth daily for 21 doses., Disp: , Rfl: amLODIPine (Norvasc) 2.5 MG tablet, Take 1 tablet (2.5 mg) by mouth daily., Disp: , Rfl: 0 apixaban (Eliquis) 5 MG tablet, Take 1 tablet (5 mg) by mouth 2 times daily., Disp: , Rfl: 0 Balsam Peewee-Calvin Oil (Venelex) ointment, Apply topically every 12 hours., Disp: , Rfl: clopidogrel (Plavix) 75 MG tablet, Take 1 tablet (75 mg) by mouth daily., Disp: , Rfl: 0 gabapentin (Neurontin) 300 MG capsule, Take 600 mg by mouth 2 times daily., Disp: , Rfl: insulin glargine (Lantus) 100 UNIT/ML injection, Inject 10 Units under the skin Every 24 hours., Disp: , Rfl: 0 Insulin Lispro (Humalog) 100 UNIT/ML solution injection, Inject 0-6 Units under the skin 3 times daily (with meals)., Disp: , Rfl: 0 levothyroxine (Synthroid, Levoxyl) 100 MCG tablet, Take 100 mcg by mouth every morning (before breakfast)., Disp: , Rfl: loratadine (Claritin) 10 MG tablet, Take 1 tablet by mouth daily., Disp: , Rfl: metoprolol tartrate (Lopressor) 25 MG tablet, Take 0.5 tablets (12.5 mg) by mouth 2 times daily., Disp: , Rfl: 0 pantoprazole (ProtoNix) 40 MG EC tablet, Take 1 tablet by mouth daily., Disp: , Rfl: rosuvastatin (Crestor) 40 MG tablet, Take 1 tablet (40 mg) by mouth daily., Disp: , Rfl: 0 Review of Systems: Review of Systems Constitutional: Negative for activity change. Respiratory: Negative for cough, chest tightness and shortness of breath. Cardiovascular: Negative for chest pain, palpitations and leg swelling. Neurological: Negative for dizziness, syncope and light-headedness. Physical Examination: Vitals: Vitals: 03/05/24 0852 BP: 122/68 BP Location: Left arm Patient Position: Sitting BP Cuff Size: Adult Pulse: 62 Weight: 177 lb 12.8 oz (80.6 kg) Height: 5' 6 (1.676 m) Body mass index is 28.7 kg/m . Physical Exam Vitals reviewed. Constitutional: General: He is not in acute distress. Appearance: He is well-developed. Neck: Vascular: No carotid bruit or JVD. Cardiovascular: Rate and Rhythm: Normal rate and regular rhythm. Occasional Extrasystoles are present. Heart sounds: Normal heart sounds. No murmur heard. Pulmonary: Effort: Pulmonary effort is normal. Breath sounds: Normal breath sounds. Chest: Comments: Mid-sternal incision healing Abdominal: General: Bowel sounds are normal. Palpations: Abdomen is soft. Musculoskeletal: Right lower leg: No edema. Left lower leg: No edema. Skin: General: Skin is warm and dry. Capillary Refill: Capillary refill takes less than 2 seconds. Neurological: Mental Status: He is alert and oriented to person, place, and time. Psychiatric: Attention and Perception: Attention normal. Mood and Affect: Mood normal. Behavior: Behavior normal. Behavior is cooperative. Laboratory Tests: Lab Results Component Value Date WBC 6.6 02/11/2024 HGB 9.8 (L) 02/11/2024 HCT 30.5 (L) 02/11/2024 MCV 85.0 02/11/2024 PLT 368 02/11/2024 Lab Results Component Value Date GLUCOSE 96 02/11/2024 CALCIUM 8.2 (L) 02/11/2024 NA 136 02/11/2024 K 4.8 02/11/2024 CO2 17 (L) 02/11/2024 CL 112 (H) 02/11/2024 BUN 27 (H) 02/11/2024 CREATININE 2.06 (H) 02/11/2024 @LASTCMP@ Lab Results Component Value Date CHOL 180 01/18/2024 Lab Results Component Value Date TRIG 100 01/18/2024 Lab Results Component Value Date HDL 33 (L) 01/18/2024 Lab Results Component Value Date LDLCALC 127 (H) 01/18/2024 NT PRO BNP Date Value Ref Range Status 01/17/2024 1,340 (H) <20 - 300 pg/mL Final Cardiac Tests: ECG: SR w/ pvcs Last Echo: 01/18/2024 Left Ventricle: Left ventricle size is normal. Mildly increased wall thickness. Normal left ventricular systolic function. EF by 2D Simpsons Biplane is 74%. Normal wall motion. Diastolic dysfunction present with normal LVEF. Right Ventricle: Right ventricle size is normal. Normal systolic function. Aortic Valve: Mild (1+) regurgitation. Left Atrium: Left atrium is mildly dilated. Pulmonary Arteries: Pulmonary artery was not well visualized. Mild pulmonary hypertension present. Transesophageal echocardiogram: 02/01/2024 Left Ventricle: Normal left ventricular systolic function. Normal wall motion. Right Ventricle: Right ventricle size is normal. Normal systolic function. Aortic Valve: Mild (1+) regurgitation. Technically difficult study. PFO present Last stress test: NA Last cardiac catheterization: 01/18/2024 NSTEMI due to 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 LM with 70% distal stenosis LAD with ostial and proximal 85% stenosis, 80% mid segment stenosis and 50% distal stenosis Ramus intermedius with an 80% proximal stenosis and 70% mid to distal segment stenoiss Left circumflex with an 80% mid segment stenosis RCA with 99% distal segment stenosis at the bifurcation to the RPDA and RPLV. 90% stenosis of proximal RPL and 100% TURBINATED BONE GRINDER of ostial RPDA--distal vessel filling by [id number] collaterals. Normal LVEDP; no aortic stenosis. Assessment and Plan: 1. 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 2. Essential hypertension 3. Mixed hyperlipidemia 4. CKD stage 3a, GFR 45-59 ml/min ([facility]) 5. Postoperative atrial fibrillation ([facility]) Coronary artery disease with recent CABG on 01/23/2024. Denies angina. -He is on a weight restriction of 20 pounds until about 8 weeks postsurgery and then from 9 to 12 weeks from the date of surgery he is on a 30 pound weight restriction. Currently he will be seen cardiothoracic surgery on an as-needed basis. -He is okay to drive (short distances) and to attend cardiac rehab at this point per cardiothoracic surgery. -No changes to his current medications. -will need follow up again in [address] Azar in initial consult. Postoperative atrial fibrillation: -scheduled to stop Amiodarone after today. -follow up in 2 months. If no recurrence of afib we could probably get him off of Eliquis and back on aspirin with his Plavix. Postoperative anemia: last labs drawn a couple of weeks ago and Hgb stable at 9.8 Hypertension: Controlled. -no changes in medications Hyperlipidemia: LDL 162 in November of 2023 -continues on Crestor -repeat lipids/hepatics follow his next office visit. documented in this encounter [facility] 02-25-2024 History of Presen t illness Narrative Images from the original note were not included. [facility] Group: [facility] [address] [facility] [address] Dept: [phone] Dept Loc: [phone] Visit type: Established patient Reason for Visit: Follow-up Assessment and Plan 1. S/P CABG (coronary artery bypass graft) 2. Coronary artery disease involving hopland coronary artery of hopland heart, unspecified whether angina present 3. NSTEMI (non-ST elevated myocardial infarction) (HCC) 4. Hypertension, unspecified type 01/23/24: CABGx4 (in situ EPSTEIN to LAD, in situ SUHAS w/rsvg extension to RI, RPDA, RPL sequentially) left lower leg EVH, and sternal plating with Dr. Johnson -Phlegm but no fevers chills. Clear, started on Claritin -Increasing activity. -Incisions healing well. -No acute issues. POD#33 Day from Discharge (01/31/24) #25 -Reviewed current meds: continue as prescribed. -Surgical Incisions: Per patient-healing appropriately, well approximated, no s/s of infection. -Physical therapy as outlined in discharge instructions.Ok to attend Cardiac Rehab and Ok to drive. -Acute Post-Operative Pain controlled. Patient no longer taking narcotic opioid medication. Tx plan: Over The Counter-Tylenol (acetaminophen) 500 mg 1-2 tablets every 6 hours. No more than 4,000 mg in 24 hour period, Over The Counter-Motrin (ibuprofen) 200-400 mg by mouth every 4-6 hours (or) 600-800mg every 8 hours. No more than 3,200 mg per day, Over The Counter-pain patches (Salon pas) may used as needed next to incision but not directly on your incision, and Ice packs applied for 20 minutes, then off for at least 20 minutes before reapplying. Weight restriction measures 1-4 weeks from date of surgery- 10lbs weight restriction: 5-8 weeks from date of surgery- 20lbs weight restriction: 9-12 weeks from date of surgery-30lbs weight restriction approximate end date: Disposition: 03/05/24 with Cardiology. Follow up with CT Surgery PRN. Patient verbalized understanding of plan and stated they would call if any questions or concerns arise. Treatment Team: PCP: ERIC NICOLAS DO Patient was identified and seen today via Telehealth by agreement and consent. I used the following Telehealth technology: Audio capability only. Total length of call 17 minutes. The patient was offered and advised video for a more comprehensive evaluation, but the patient declined or was unable to use video. Patient location: [place] Patient Location: Home. This patient encounter is appropriate and reasonable under the circumstances: Recently assessed in person . The patient has been advised of the potential risks and limitations of this mode of treatment (including but not limited to the absence of in-person examination) and has agreed to be treated in a remote fashion in spite of them. Any and all of the patient's/patient's family's questions on this issue have been answered and I have made no promises or guarantees to the patient. The patient has also been advised to contact this office for worsening conditions or problems, and seek emergency medical treatment and/or call 911 if the patient deems either necessary. The patient stated that they are currently in the [facility]. If the patient is a minor, permission has been obtained by the parent or guardian for the patient to receive medical care at this visit. Subjective HPI: 78 year old male patient with a PMHx that includes HTN, HLD, T2DM and CKD. He presented to ED with complaints of chest pain and SOB. Symptoms had been intermittent since 2 days prior. He had chest pain previously that resolved with TUMS. The chest pain returned the following night but then radiated to back, arms and jaw. Symptoms did not resolve with TUMS this time which prompted his visit to the ED. Workup revealed slightly inverted T waves on EKG. Initial troponin was 0.19. He was admitted for suspected NSTEMI and taken to the bolt labeler. Cath showed multivessel CAD and Cardiothoracic Surgery was consulted for surgical evaluation. He consented to surgical intervention and was taken to the operating room on 01/23/24 for CABGx4 with sternal plating with Dr. Johnson. Postoperative course was uncomplicated. After he was hemodynamically stable and medically optimized he was discharged to [facility] for further physical therapy on POD#8. 02/14/24: Patient presents to office today for follow up. Currently residing at assisted living facility. Feels he is doing well. Ambulating more, uses walker to ambulate longer distances. Pain has been tolerable with just OTC medication use. Incisions healing well. No swelling noted. 02/25/24: Spoke with patient on phone, overall, doing well. Has been gaining strength. Only complaint is he has been having sputum that he's coughing up but it is clear. No fevers or chills. Facility he is at performed CXR, per patient, it was okay. Incisions healing well, no pain. Review of Systems Constitutional: Negative for activity change, chills, fatigue and fever. Respiratory: Positive for cough. Negative for shortness of breath and wheezing. Cardiovascular: Negative for chest pain, palpitations and leg swelling. Neurological: Negative for dizziness and light-headedness. Allergies Allergen Reactions Bee Venom Outpatient Medications Prior to Visit Medication Sig Dispense Refill amiodarone (Pacerone) 200 MG tablet Take 1 tablet (200 mg) by mouth daily for 21 doses. amLODIPine (Norvasc) 2.5 MG tablet Take 1 tablet (2.5 mg) by mouth daily. 0 apixaban (Eliquis) 5 MG tablet Take 1 tablet (5 mg) by mouth 2 times daily. 0 clopidogrel (Plavix) 75 MG tablet Take 1 tablet (75 mg) by mouth daily. 0 gabapentin (Neurontin) 300 MG capsule Take 600 mg by mouth 2 times daily. insulin glargine (Lantus) 100 UNIT/ML injection Inject 10 Units under the skin Every 24 hours. 0 Insulin Lispro (Humalog) 100 UNIT/ML solution injection Inject 0-6 Units under the skin 3 times daily (with meals). 0 levothyroxine (Synthroid, Levoxyl) 100 MCG tablet Take 100 mcg by mouth every morning (before breakfast). metoprolol tartrate (Lopressor) 25 MG tablet Take 0.5 tablets (12.5 mg) by mouth 2 times daily. 0 rosuvastatin (Crestor) 40 MG tablet Take 1 tablet (40 mg) by mouth daily. 0 No facility-administered medications prior to visit. 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 There were no vitals filed for this visit. Wt Readings from Last 3 Encounters: 02/14/24 177 lb (80.3 kg) 01/31/24 178 lb 8 oz (81 kg) Physical exam deferred due to virtual visit-with audio (telephone) capabilities only. Data Reviewed and Summarized Labs/Imaging/Testing: reviewed EMR, see A&P for pertinent diagnostic results related to office visit MichaelLINUS Saldana CNP documented in this encounter [facility] 02-14-2024 History of Presen t illness Narrative Images from the original note were not included. [facility]: [facility] [place] [address] [facility] [address] Dept: [phone] Dept Loc: [phone] Visit type: Established patient Reason for Visit: Post-op Assessment and Plan 1. S/P CABG (coronary artery bypass graft) 2. Coronary artery disease involving hopland coronary artery of hopland heart, unspecified whether angina present 3. NSTEMI (non-ST elevated myocardial infarction) (HCC) 4. Hypertension, unspecified type 01/23/24: CABGx4 (in situ EPSTEIN to LAD, in situ SUHAS w/rsvg extension to RI, RPDA, RPL sequentially) left lower leg EVH, and sternal plating with Dr. Johnson -At assisted living, progressing. -Incisions healing well. -Pain tolerable. -Discussed sternal precautions and weight restrictions. -OK to drive with someone, short distances. -Tolerating medication regimen. -Euvolemic. POD#22 Day from Discharge (01/31/24) #14 -Reviewed current meds: Continue as prescribed. -Surgical Incisions: healing appropriately, well approximated, no s/s of infection. -Physical therapy as outlined in discharge instructions.Ok to drive and Not ready for Cardiac Rehab. -Acute Post-Operative Pain controlled. Patient no longer taking narcotic opioid medication. Tx plan: Over The Counter-Tylenol (acetaminophen) 500 mg 1-2 tablets every 6 hours. No more than 4,000 mg in 24 hour period, Over The Counter-Motrin (ibuprofen) 200-400 mg by mouth every 4-6 hours (or) 600-800mg every 8 hours. No more than 3,200 mg per day, Over The Counter-pain patches (Salon pas) may used as needed next to incision but not directly on your incision, and Ice packs applied for 20 minutes, then off for at least 20 minutes before reapplying. Weight restriction measures 1-4 weeks from date of surgery- 10lbs weight restriction: 5-8 weeks from date of surgery- 20lbs weight restriction: 9-12 weeks from date of surgery-30lbs weight restriction approximate end date: Disposition: Phone call in 2 weeks. Patient verbalized understanding of plan and stated they would call if any questions or concerns arise. Treatment Team: PCP: ERIC NICOLAS DO Subjective HPI: 78 year old male patient with a PMHx that includes HTN, HLD, T2DM and CKD. He presented to ED with complaints of chest pain and SOB. Symptoms had been intermittent since 2 days prior. He had chest pain previously that resolved with TUMS. The chest pain returned the following night but then radiated to back, arms and jaw. Symptoms did not resolve with TUMS this time which prompted his visit to the ED. Workup revealed slightly inverted T waves on EKG. Initial troponin was 0.19. He was admitted for suspected NSTEMI and taken to the bolt labeler. Cath showed multivessel CAD and Cardiothoracic Surgery was consulted for surgical evaluation. He consented to surgical intervention and was taken to the operating room on 01/23/24 for CABGx4 with sternal plating with Dr. Johnson. Postoperative course was uncomplicated. After he was hemodynamically stable and medically optimized he was discharged to [facility] for further physical therapy on POD#8. 02/14/24: Patient presents to office today for follow up. Currently residing at assisted living facility. Feels he is doing well. Ambulating more, uses walker to ambulate longer distances. Pain has been tolerable with just OTC medication use. Incisions healing well. No swelling noted. Review of Systems Constitutional: Negative for chills, diaphoresis and fever. Respiratory: Negative for cough, shortness of breath and wheezing. Cardiovascular: Negative for palpitations and leg swelling. Gastrointestinal: Negative for abdominal distention, abdominal pain, nausea and vomiting. Neurological: Negative for dizziness and light-headedness. Allergies Allergen Reactions [facility] Medications Prior to Visit Medication Sig Dispense Refill amiodarone (Pacerone) 200 MG tablet Take 1 tablet (200 mg) by mouth daily for 21 doses. amLODIPine (Norvasc) 2.5 MG tablet Take 1 tablet (2.5 mg) by mouth daily. 0 apixaban (Eliquis) 5 MG tablet Take 1 tablet (5 mg) by mouth 2 times daily. 0 clopidogrel (Plavix) 75 MG tablet Take 1 tablet (75 mg) by mouth daily. 0 gabapentin (Neurontin) 300 MG capsule Take 600 mg by mouth 2 times daily. insulin glargine (Lantus) 100 UNIT/ML injection Inject 10 Units under the skin Every 24 hours. 0 Insulin Lispro (Humalog) 100 UNIT/ML solution injection Inject 0-6 Units under the skin 3 times daily (with meals). 0 levothyroxine (Synthroid, Levoxyl) 100 MCG tablet Take 100 mcg by mouth every morning (before breakfast). metoprolol tartrate (Lopressor) 25 MG tablet Take 0.5 tablets (12.5 mg) by mouth 2 times daily. 0 rosuvastatin (Crestor) 40 MG tablet Take 1 tablet (40 mg) by mouth daily. 0 No facility-administered medications prior to visit. 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 Vitals: 02/14/24 0943 BP: 131/72 Pulse: 71 Wt Readings from Last 3 Encounters: 02/14/24 177 lb (80.3 kg) 01/31/24 178 lb 8 oz (81 kg) Physical Exam Vitals reviewed. Cardiovascular: Rate and Rhythm: Normal rate and regular rhythm. Pulses: Normal pulses. Heart sounds: No murmur heard. Pulmonary: Effort: Pulmonary effort is normal. Breath sounds: No wheezing, rhonchi or rales. Musculoskeletal: Right lower leg: No edema. Left lower leg: No edema. Skin: General: Skin is warm and dry. Capillary Refill: Capillary refill takes less than 2 seconds. Findings: Bruising present. Comments: Incisions healing well. No redness, warmth or drainage noted. Data Reviewed and Summarized Labs/Imaging/Testing: reviewed EMR, see A&P for pertinent diagnostic results related to office visit LINUS Sharma CNP documented in this encounter [facility] 01-31-2024 Miscellaneous Notes The patient is Moderately Stable - Low risk of patient condition declining or worsening The patient's goals for the shift include go to [facility] The clinical goals for the shift include discharge to [facility] Over the shift, the patient did not make progress toward the following goals. Barriers to progression include pt discharged to [facility] rehab. Recommendations to address these barriers include none. Noted plan for discharge to [facility]. ANABELA notified to continue to follow for discharge needs following IPR stay. HCL signing off. Patient Choice Patient Name: JORGE SALAMANCA Date of : 1945 All Providers Sent Referral Name: [facility] Address: [address] [place] [address] MAR & Discharge med list transmitted to [facility] per [facility] request. Electronically signed by [facility] Don Philippe arranged transport through [facility] to [facility] for 5:00 pm. Notified: TCC, RN, Facility, patient, community nurse and left message for patient's brother, Nancy. Notified by [facility] liaison, patient has been approved to admit to [facility] for IPR level of care. Primary team and bedside RN notified. Social work to set up transport. Task to [facility] to send MAR/dc paperwork. Problem: Pain - Adult Goal: Verbalizes/displays adequate comfort level or baseline comfort level Outcome: Progressing Problem: Safety - Adult Goal: Free from fall injury Outcome: Progressing Problem: Discharge Planning Goal: Discharge to home or other facility with appropriate resources Outcome: Progressing Problem: Chronic Conditions and Co-morbidities Goal: Patient's chronic conditions and co-morbidity symptoms are monitored and maintained or improved Outcome: Progressing Problem: Problem Interventions Goal: Assess Nutritional Intake Outcome: Progressing Awaiting OT note to start auth to [facility]. Problem: Pain - Adult Goal: Verbalizes/displays adequate comfort level or baseline comfort level Outcome: Progressing Problem: Safety - Adult Goal: Free from fall injury Outcome: Progressing Problem: Discharge Planning Goal: Discharge to home or other facility with appropriate resources Outcome: Progressing Problem: Chronic Conditions and Co-morbidities Goal: Patient's chronic conditions and co-morbidity symptoms are monitored and maintained or improved Outcome: Progressing Problem: Problem Interventions Goal: Assess Nutritional Intake Outcome: Progressing Referral placed to [facility] via [facility] per [facility] request. Await review and response regarding ability to accept. TCC notified. Patient remains on CTV ICU - POD CABG x4 ~ discussed with CT surgery - Will need updated OT - requested see today. LILIYA Irvin spoke with patient - he is agreeable to [facility] - plan for staying with his sister post [facility]. Task sent to [facility] to place referral to [facility]. Will need [facility] auth - discussed with [facility] liaison Carlee. The patient is Moderately Stable - Low risk of patient condition declining or worsening The patient's goals for the shift include rest The clinical goals for the shift include orient to unit Over the shift, the patient did not make progress toward the following goals. Barriers to progression include Problem: Pain - Adult Goal: Verbalizes/displays adequate comfort level or baseline comfort level Outcome: Progressing . Recommendations to address these barriers include Problem: Chronic Conditions and Co-morbidities Goal: Patient's chronic conditions and co-morbidity symptoms are monitored and maintained or improved Outcome: Progressing . Problem: Pain - Adult Goal: Verbalizes/displays adequate comfort level or baseline comfort level Outcome: Progressing Problem: Safety - Adult Goal: Free from fall injury Outcome: Progressing Problem: Discharge Planning Goal: Discharge to home or other facility with appropriate resources Outcome: Progressing Problem: Chronic Conditions and Co-morbidities Goal: Patient's chronic conditions and co-morbidity symptoms are monitored and maintained or improved Outcome: Progressing Problem: Problem Interventions Goal: Assess Nutritional Intake Outcome: Progressing Problem: Pain - Adult Goal: Verbalizes/displays adequate comfort level or baseline comfort level Recent Flowsheet Documentation Taken 01/27/2024415 by Bradley Abbott RN Verbalizes/displays adequate comfort level or baseline comfort level: Encourage patient to monitor pain and request assistance Assess pain using appropriate pain scale Problem: Pain - Adult Goal: Verbalizes/displays adequate comfort level or baseline comfort level Outcome: Progressing Flowsheets (Taken 01/27/2024415) Verbalizes/displays adequate comfort level or baseline comfort level: Encourage patient to monitor pain and request assistance Assess pain using appropriate pain scale Problem: Safety - Adult Goal: Free from fall injury Outcome: Progressing The patient is Moderately Stable - Low risk of patient condition declining or worsening The patient's goals for the shift include rest The clinical goals for the shift include walk in unit Problem: Pain - Adult Goal: Verbalizes/displays adequate comfort level or baseline comfort level Outcome: Progressing Flowsheets (Taken 01/25/2024 1800) Verbalizes/displays adequate comfort level or baseline comfort level: Encourage patient to monitor pain and request assistance Assess pain using appropriate pain scale Administer analgesics based on type and severity of pain and evaluate response Implement non-pharmacological measures as appropriate and evaluate response Problem: Safety - Adult Goal: Free from fall injury Outcome: Progressing Flowsheets (Taken 01/25/2024 1800) Free from fall injury: Instruct family/caregiver on patient safety Problem: Discharge Planning Goal: Discharge to home or other facility with appropriate resources Outcome: Progressing Flowsheets (Taken 01/25/2024 1800) Discharge to home or other facility with appropriate resources: Identify barriers to discharge with patient and caregiver Arrange for needed discharge resources and transportation as appropriate Problem: Chronic Conditions and Co-morbidities Goal: Patient's chronic conditions and co-morbidity symptoms are monitored and maintained or improved Outcome: Progressing Flowsheets (Taken 01/25/2024 1800) Care Plan - Patient's Chronic Conditions and Co-Morbidity Symptoms are Monitored and Maintained or Improved: Monitor and assess patient's chronic conditions and comorbid symptoms for stability, deterioration, or improvement Collaborate with multidisciplinary team to address chronic and comorbid conditions and prevent exacerbation or deterioration Problem: Problem Interventions Goal: Assess Nutritional Intake Outcome: Progressing Images from the original note were not included. Care Management Progress Note Patient remains in CTV ICU s/p CABG x 4, POD#2. Chest tubes remain in place. Nephrology following for ALEXANDER on CKD. DCP- goal, home with [facility] once medically ready. PT rec IP rehab. TCC to follow. Discharge Milestones and Delays Expected date/time: 01/29/2024 Discharge provider: Barber Solis MD Means of departure: Ambulance Disposition: Another Health Care Institution Not Defined Destination: Hospital (Acute Care Facility) Discharge Milestones Place discharge order Complete med reconciliation Case mgmt discharge readiness Clinical Stability Diagnostic Workup Patient Education Complete Expected Discharge History Expected Date/Time Set By Reviewed At 01/29/2024 Venus Gregory RN 01/25/2024 11:44 AM 01/29/2024 Beatris Jackson RN 01/24/2024 9:32 AM 01/29/2024 Beatris Jackson, TONYA 01/22/2024 7:33 AM 01/20/2024 Oralia Hui RN 01/18/2024 7:32 AM tcc est 01/20/2024 Jose Robledo, DO 01/18/2024 2:31 AM 01/19/2024 Jose Robledo, DO 01/18/2024 1:42 AM Length of Stay (Days): 7 GMLOS: 11.4 Images from the original note were not included. Care Management Progress Note Patient remains in CTV ICU now s/p CABG x 4 POD # 1. Extubated within window, weaned to 2L NC, VSS-off pressor support, in NSR on tele, chest tubes to water seal, gastric bubble-KUB this pm, insulin per endocrine and PT/OT evals pending. DCP-goal home with [facility], [facility] following. Discharge Milestones and Delays Expected date/time: 01/29/2024 Discharge provider: Barber Solis MD Means of departure: Ambulance Disposition: Another Health Care Institution Not Defined Destination: Hospital (Acute Care Facility) Discharge Milestones Place discharge order Complete med reconciliation Case mgmt discharge readiness Clinical Stability Diagnostic Workup Patient Education Complete Expected Discharge History Expected Date/Time Set By Reviewed At 01/29/2024 Beatris Jackson RN 01/24/2024 9:32 AM 01/29/2024 Beatris Jackson RN 01/22/2024 7:33 AM 01/20/2024 Oralia Hui RN 01/18/2024 7:32 AM tcc est 01/20/2024 Jose Robledo, DO 01/18/2024 2:31 AM 01/19/2024 Jose Robledo, DO 01/18/2024 1:42 AM Length of Stay (Days): 6 GMLOS: 8.1 The patient is Moderately Unstable - Medium risk of patient condition declining or worsening The patient's goals for the shift include to have less pain The clinical goals for the shift include to remian hemodynamically sable Over the shift, the patient did not make progress toward the following goals. Barriers to progression include pain control. Recommendations to address these barriers include offer pain medication. Cardiothoracic Surgery Operative Report DATE OF PROCEDURE: 01/23/24 PREOPERATIVE DIAGNOSIS: Coronary artery disease, severe multivessel CAD NSTEMI CKD III T2DM HLD HTN POSTOPERATIVE DIAGNOSIS: Same PROCEDURE: 1. Coronary artery bypass grafting x 4 - In situ Left internal mammary artery to the left anterior descending - In situ Right internal mammary artery with reverse saphenous vein graft extension to the ramus intermedius, right posterior descending artery, and right posterior lateral sequentially. 2. Endoscopic vein harvest, left lower extremity 3. SHARMAINE SURGEON: Loretta Johnson DO, MS, JOEL SUCTION WORKER: Jewels Sherman COMPLICATIONS: None intra-op CONDITION: Stable DESCRIPTION OF PROCEDURE: The patient was prepped and draped in the appropriate manner, having undergone general endotracheal anesthetic in addition to [place]-Zeynep catheter placement, arterial line, and ott catheter placement. An antibiotic and a beta rd were administered pre-operatively and documented. Incision and conduit harvest/preparation: A midline sternotomy incision was utilized in standard fashion. The left internal mammary artery was skeletonized and taken down with clips and bovie cauterization. The right internal mammary artery was similarly skeletonized and taken down with clips and Bovie cauterization. Papaverine was used. The left lower extremity saphenous vein was harvested via an endoscopic approach. The patient was fully heparinized prior to dividing and prepping the mammaries. The right internal mammary artery was extended utilizing reverse saphenous vein. This was fashioned with a spatulated end-to-end anastomosis. There was good flow through the conduit. Retrothymic tunnels were created to facilitate deliver of the IMAs into the pericardium. Cannulation and cardiopulmonary bypass: The pericardium was then opened and the pericardial well was created. Concentric purse strings were placed and the aorta was cannulated with a 20fr cannula. After adequate de-airing this cannula was connected to the CPB circuit. A purse string was placed around the right atrial appendage and it was cannulated with a 29fr multistage venous cannula. Prior to initiating CPB the conduits were prepared. After cannulation, the patient was placed on cardiopulmonary bypass support and drifted to ~34 degrees. Ascending aortic cross-clamp was applied. Antegrade and retrograde cardioplegia (microplegia) was delivered till the heart was arrested in diastole. Cardioplegia was re-administered every 10 to 20 minutes while the ascending aorta was cross clamped. Coronary artery bypass: Targets were identified and the distal LAD, ramus intermedius, right posterior descending and right posterior lateral arteries presented viable landing zones. The first and terminal obtuse marginals were small caliber (<0.5mm) and tortuous without reasonable target zone. The diagonal arteries were similarly small and while the second diagonal artery appeared 0.75mm, the available arteries was heavily diseased. The extended right internal mammary artery was then passed through the transverse sinus. After verifying its orientation, it was fashioned to an appropriate length and anastomosed to the ramus intermedius, right posterior descending and right posterior lateral arteries in a sequential fashion with 7-0 Prolene. The left internal mammary artery was then delivered into the field and orientation was verified. The left internal mammary artery was then trimmed to an appropriate length and anastomosed to the LAD with 7-0 Prolene. CPB wean and decannulation: The patient was given a dose of warm blood cardioplegia. Valsalva breaths were mechanically administered and the aorta was unclamped. The heart returned to normal sinus rhythm. Pacing wire was placed. The patient was rewarmed and weaned from cardiopulmonary bypass support without difficulty. Protamine was administered and cannulas were removed without difficulty. Three 24Fr emil drains were placed, one in the left pleural space, one in the right pleural space and one in the mediastinum. Closure: Hemostasis was achieved. The sternum and incision were closed with sternal wires and cerclage plates, running 0 PDA, 2-0 and 4-0 vicryl stitches. Dressings applied, and the patient was transferred to the cardiovascular intensive care unit in stable condition. Products: None Drips: Nitrogylcerine 5 mcg/min Cardiopulmonary bypass time: 76 minutes Cross clamp time: 67 minutes Intra-op SHARMAINE: normal function, no significant valvulopathy Loretta Johnson DO, MS, FACOS Cardiothoracic Surgery Images from the original note were not included. Care Management Progress Note Patient transferred to CTV ICU with MVCAD. Plan for CABG tomorrow. Will ask [facility] to follow for home care post op. Discharge Milestones and Delays Expected date/time: 01/29/2024 Anticipated medical readiness: 01/20/2024 Discharge provider: Barber Solis MD Means of departure: Ambulance Disposition: Another Health Care Institution Not Defined Destination: Hospital (Acute Care Facility) Discharge Milestones Place discharge order Complete med reconciliation Case mgmt discharge readiness Clinical Stability Diagnostic Workup Patient Education Complete Expected Discharge History Expected Date/Time Set By Reviewed At 01/29/2024 Beatris Jackson RN 01/22/2024 7:33 AM 01/20/2024 Oralia Hui RN 01/18/2024 7:32 AM tcc est 01/20/2024 Jose Robledo DO 01/18/2024 2:31 AM 01/19/2024 Jose Robledo DO 01/18/2024 1:42 AM Length of Stay (Days): 4 GMLOS: 1.8 Patient has been with Dr. Light [facility], forwarded consult to [facility]. Will review films with Dr. Johnson this am. Will devise a plan and work with cardiology. Apparently the patients just . Will need multidisciplinary involvement the patient is at base line creat at 1.8 but will still plan to involve nephrology prior to surgery. FOREIGN BANKNOTE TELLER completed HCPOA with Patient. Patient named his Agent Nancy Linda as his agent. FOREIGN BANKNOTE TELLER made copies and placed in the chart as well as sent to medical records. FOREIGN BANKNOTE TELLER provided a copy and the original to Nancy. Patient did state that his spouse, that was also in the hospital, that morning. Emotional support provided. Problem: Pain - Adult Goal: Verbalizes/displays adequate comfort level or baseline comfort level Recent Flowsheet Documentation Taken 01/19/20241999 by Per Sung RN Verbalizes/displays adequate comfort level or baseline comfort level: Encourage patient to monitor pain and request assistance Problem: Pain - Adult Goal: Verbalizes/displays adequate comfort level or baseline comfort level 01/20/202446 by Per Sung RN Outcome: Progressing 01/20/202445 by Per Sung RN Outcome: Progressing Flowsheets (Taken 01/19/20241999) Verbalizes/displays adequate comfort level or baseline comfort level: Encourage patient to monitor pain and request assistance 01/19/20241942 by Per Sung RN Outcome: Progressing Problem: Safety - Adult Goal: Free from fall injury 01/20/202446 by Per Sung RN Outcome: Progressing 01/20/202445 by Pre Sung RN Outcome: Progressing 01/19/20241942 by Per Sung RN Outcome: Progressing Problem: Discharge Planning Goal: Discharge to home or other facility with appropriate resources 01/20/202446 by Per Sung RN Outcome: Progressing 01/20/202445 by Per Sung RN Outcome: Progressing 01/19/20241942 by Per Sung RN Outcome: Progressing Problem: Chronic Conditions and Co-morbidities Goal: Patient's chronic conditions and co-morbidity symptoms are monitored and maintained or improved 01/20/202446 by Per Sung RN Outcome: Progressing 01/20/202445 by Per Sung RN Outcome: Progressing 01/19/20241942 by Per Sung RN Outcome: Progressing Problem: Cardiovascular - Adult Goal: Maintains optimal cardiac output and hemodynamic stability Recent Flowsheet Documentation Taken 01/19/20241999 by Per Sung RN Maintains optimal cardiac output and hemodynamic stability: Monitor blood pressure and heart rate The patient is Moderately Stable - Low risk of patient condition declining or worsening The patient's goals for the shift include rest The clinical goals for the shift include orient to unit Over the shift, the patient did not make progress toward the following goals. Barriers to progression include previous medical history. Recommendations to address these barriers include current medical condition. Problem: Pain - Adult Goal: Verbalizes/displays adequate comfort level or baseline comfort level Outcome: Progressing Problem: Safety - Adult Goal: Free from fall injury Outcome: Progressing Problem: Discharge Planning Goal: Discharge to home or other facility with appropriate resources Outcome: Progressing Problem: Discharge Planning Goal: Discharge to home or other facility with appropriate resources Outcome: Progressing Problem: Chronic Conditions and Co-morbidities Goal: Patient's chronic conditions and co-morbidity symptoms are monitored and maintained or improved Outcome: Progressing The patient is Moderately Stable - Low risk of patient condition declining or worsening The patient's goals for the shift include rest The clinical goals for the shift include orient to unit Over the shift, the patient did not make progress toward the following goals. Barriers to progression include previous medical history. Recommendations to address these barriers include current medical condiiton. [employer]inct following case for Discharge Needs. Sedation Plan ASA class 2 - patient with mild systemic disease Mallampati class: II - soft palate, uvula, fauces visible. Sedation plan: local anesthesia and moderate (conscious sedation) Risks, benefits, and alternatives discussed with patient. Plan discussed with attending. Immediate reassessment prior to sedation: Patient's status reviewed and vital signs assessed; acceptable to perform procedure and proceed to administer sedation as planned. Care Managment Initial Assessment Date: 01/18/2024 Patient Name: Jorge Slaamanca : 1945 Patient Information Source of Information: Patient Name/Contact Information: NANCY MCKEON [phone] BROTHER IN LAW Cognition/Language: WFL - Within Functional Limits Permission given to speak with patient life assurance representative/caregiver as indicated: Yes Confirmation of Payer with patient/family: Yes [facility] Confirmation of Primary Care Physician: Confirmed PCP Name: DR. NICOLAS Seen in last 2 years?: Yes Primary Caregiver: Self If assistance needed, confirmed caregiver ready, willing and able to care for patient at discharge: Yes Confirmed with: PER PATIENT HIS SISTER OR BROTHER IN LAW Living Arrangements Current Residence: House Number of Floors 2 Number of Entry Steps: (RAMP) Bed/Bath Levels: Both second floor Facility: Facility Name: NA Plan to Return: Yes Lives with: Alone Support Systems: Family members Activities of Daily Living Ambulation: Independent Bathing/Dressing: Independent Elimination/Continence/Toileting : Independent Feeding: Independent Who Assists with Activities of Daily Living: NA Instrumental Activities of Daily Living Prescription Coverage: Yes Pharmacy Used: [facility] Medication Management: Independent Transportation/Shopping: Independent Transportation Mode: Car Needs Assistance with Transportation at Discharge: No (CAR IN ER PARKING LOT) Meal Preparation: Independent Laundry/Cleaning: Independent Finances/Bill Paying: Independent Communication: Independent Types of Care Services/Equipment Utilized Care Services: Dialysis Type: NA Durable Medical Equipment: Walker, Shower Seat, Rollator, Hospital Bed, Raised Toilet Seat (4 WHEELED SCOOTER. HAS EQUIPMENT AVAILABLE BUT NOT USING IT) Patient's Goal/Discharge Plan Patient expects to be discharged to: HOME Discharge Planning Actions: Continue to follow Patient's Choice Rights and [employer] and Collaborative Relationships Disclosed as Indicated for Post-Acute Care: NA Interdisciplinary Team Engagement: Social Work Referral for: Additional Information: Inpatient status from home with nstemi. Admitted to [facility], serial trop, heparin drip, cardiology consult. Plan for [facility] this afternoon. Met with patient. Introduced myself and explained my role. Patient lives at home alone. States his is currently at [facility]. She is at [facility]. She has history of diabetic seizure and suffers from cognitive impairment. States his brother in law Koo is his emergency contact. He has sister in [facility] that is a RN and his MARINA lives in [place]. They are able to assist at home if needed. States his car in ER parking and he plans to drive himself home at discharge. Will need to monitor medication needs upon discharge. . Oralia Hui RN Problem: Pain - Adult Goal: Verbalizes/displays adequate comfort level or baseline comfort level Outcome: Progressing Flowsheets (Taken 01/18/2024 0805) Verbalizes/displays adequate comfort level or baseline comfort level: Encourage patient to monitor pain and request assistance Assess pain using appropriate pain scale Administer analgesics based on type and severity of pain and evaluate response Implement non-pharmacological measures as appropriate and evaluate response Problem: Safety - Adult Goal: Free from fall injury Outcome: Progressing Note: Side rails upx2, bed low, brakes on, call light in reach. The patient is Moderately Stable - Low risk of patient condition declining or worsening The patient's goals for the shift include Find out plan from doctor The clinical goals for the shift include Pt will remain comfortable without chest pain this shift. The patient is Moderately Stable - Low risk of patient condition declining or worsening The patient's goals for the shift include rest The clinical goals for the shift include orient to unit Problem: Pain - Adult Goal: Verbalizes/displays adequate comfort level or baseline comfort level Outcome: Progressing Problem: Safety - Adult Goal: Free from fall injury Outcome: Progressing documented in this encounter [facility] 01-31-2024 Nurse Note Discharged to [facility], saline lock removed, preethi and discharge instructions to [facility], copy of discharge with pt, appointments gone over. Pt belonging with patient Wound Care consulted for Pressure Injury Prevention. Pt's Sheng score= 15 on 01/22 Pt's pressure points assessed. Pt's Heels, Buttocks/coccyx, Back, Elbows, Occiput and ears all intact. Prevention Measures in place, including: Bureau sheet with pillows/wedges, Foam heel protectors (in place), Heels elevated off bed on pillows, Sacral foam (in place), Zinc/Moisture Barrier ointment, Waffle chair cushion (on chair in room). Skin Care precaution order set in place. Nematology Teacher consult in place. PT/OT consult in place. Will continue to follow pt. Please Voicera for any questions or concerns. Ashlie Ruiz RN Wound Care consulted for Pressure Injury Prevention. Pt's Sheng= 20, pt is no longer at risk. Skin Care Precaution order set in place. Will continue to follow peripherally. Please voicera or secure chat message with any questions. Ashlie Ruiz RN Dr. Mortensen aware pt hgb drop. See new orders. 1645: bleeding at right radial heart cath site. No active bleeding present. Injected 2 ml air back into radial compression device. Will re assess in 15 minutes documented in this encounter [facility] 01-31-2024 Note [facility] Hospital Discharg e instructions Sumit Stanley APRN - DEICER REPAIRER PNEUMATIC - 01/31/2024 12:11 PM EDT Images from the original note were not included. [facility] Medical Group: Cardiothoracic Surgery [address] [facility] [facility] #[phone] Notify us if the following occur - Increased tenderness, redness, or swelling of your incisions. - Any drainage from the chest incision (clear or pink drainage from the leg incision or chest tube site is common). - Angina symptoms like those you had before surgery - Sharp pain in chest, neck or shoulder that is worse when taking a deep breath - Persistent fever greater than 100 degrees F or 38 degrees C - Flu-like symptoms-chills, aches, fever, increased fatigue - Heart rate faster than 150 beats/minute with shortness of breath or new irregular heart rate. - Any unusual bleeding - Shortness of breath not relieved by rest - Weight gain of three pounds in one day or five pounds over one week Activity Instructions - Sternal Precautions for 6 weeks - Do not lift, push, or pull anything heavier than 10 pounds for 6 weeks (a gallon of milk weighs 8 pounds). - Do not drive until you have been given permission by your surgeon/provider and until you are off narcotic/opioid pain medication - It is ok to sleep on your side if you prop pillows to support your back. Do not sleep on your stomach. - Walk at least 4 times a day, start with 5 minute intervals, increase minutes walked each day. Do not walk on a treadmill - Balance rest and activity during your recovery - Use the stairs, but go slowly, Use the handrail for balance but do not pull yourself up with your arms. - Shower daily. Do not take your heart medication right before you shower. You could become lightheaded from your blood pressure and heart medication. Always have someone nearby to assist you. - Do not take a tub bath or use a hot tub until all incision are completely healed (no scab). - Put jose hose on in AM and remove at bedtime. Elevate your feet above level of heart when you are sitting. - Cough and deep breathe and use incentive spirometer every hour (10x/hour while awake for two weeks). Other Instructions - Weigh yourself daily at the same time (after you urinate but before breakfast) - Keep a record of your daily weight, and bring to your first post op office visit - Take all medications as prescribed. Bring all your medication bottles to any follow up office visit Incision Care - Wash your sternal incision with anti-bacterial soap and warm water. Pat dry, and leave open to air. Do not use any lotions, or powders, or ointments. Cardiothoracic Surgery: Symptom Management Office phone number: [phone] Office is open 8:30 am -4 pm. If you need assistance after hours, this will direct you to a nursing hotline. GREEN ZONE: All Clear- Your Symptoms Are Under Control Incisional pain is managed by taking Acetaminophen and/or pain medication No increase in shortness of breath No increase in leg swelling or weight gain No frequent lightheadedness/dizziness No redness or drainage from incisions. Small amount of thin, blood tinged or yellow drainage is not uncommon for few days post discharge This Means You Should: Continue current plan of care Continue taking your medications as prescribed Continue activity as tolerated, including 4 walks daily and PT exercised Eat healthy diet, no caffeine Keep all follow-up appointments No smoking YELLOW ZONE: Caution Incisional pain that is getting worse and/or not managed by pain medication Increase in shortness of breath, especially when at rest Increased leg swelling or new leg swelling Weight gain (more than 3lb in 1 day or 5lb in 1 week) Lightheadedness, dizziness, or heavy sweating Redness and/or thick drainage from incision Fever/chills This Means You Should: Call cardiothoracic surgery line for further instructions: [phone] Office is open 8:30 am -4 pm. If you need assistance after hours, this will direct you to a nursing hotline. RED ZONE: Medical Alert Severe shortness of breath at rest Severe chest pain/pressure or pain that radiates to neck, jaw, back, and/or arm that is NOT relieved with rest and pain medication. May be similar to pain prior to surgery Passing out or fainting This Means You Should: call EMS or seek care in Emergency Department LINUS Liang CNP - 01/25/2024 8:58 AM EDT Images from the original note were not included. Continuity of Care Form Patient Name: Jorge Salamanca : 1945 Admit date: 01/17/2024 Discharge date: 12/31/2023 Code Status Order: Full Code Advance Directives: N Admitting Physician: Loretta Johnson DO PCP: ERIC NICOLAS DO Discharging Nurse: Damir velasquez Discharging Hospital Unit/Room#: T1-105/T1-105 A Discharging Unit Phone Number: [phone] Emergency Contact: Extended Emergency Contact Information Primary Emergency Contact: Nancy Mckeon Mobile Relation: Brother Clinical Reimbursement Specialist needed? 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) CKD stage 3a, GFR 45-59 ml/min (HCC) Essential hypertension Hematuria, microscopic Isolation/Infection: No active isolations No active infections Nurse Assessment: Last Vital Signs: BP 118/59 (BP Location: Right arm, Patient Position: Sitting) Pulse 78 Temp 36.9 C (98.5 F) (Temporal) Resp 19 Ht 1.676 m (5' 6) Wt 83.5 kg (184 lb) SpO2 95% BMI 29.70 kg/m Last documented pain score (0-10 scale): Last Weight: Wt Readings from Last 1 Encounters: 01/25/24 83.5 kg (184 lb) Mental Status: PREETHI Patient Mental Status: oriented, alert, and logical IV Access: PREETHI IV Access: None Nursing Mobility/ADLs: Walking Minimal assistance Transfer Minimal assistance Bathing Total assistance Dressing Total assistance Toileting Minimal assistance Feeding Independent Flight Operations Coordinator Independent Med Delivery {yes/no:[id number]}no idea what this means Wound Care Documentation and Therapy: Wound/Incision 01/23/24 Incision Sternum (Active) Site Assessment Clean;Dry;Intact 01/25/24 0400 Justina-Wound Assessment Clean;Dry;Intact 01/24/24 1600 Odor None 01/25/24 0400 Drainage Amount None 01/25/24 0400 Primary Dressing Open to air 01/25/24 0400 Dressing Status Clean, dry & intact 01/24/24 1600 Number of days: 1 Wound/Incision 01/23/24 Incision Calf Anterior;Left (Active) Site Assessment Clean;Dry;Intact 01/25/24 0400 Justina-Wound Assessment Clean;Dry;Intact 01/24/24 1600 Odor None 01/25/24 0400 Drainage Amount None 01/25/24 0400 Primary Dressing Open to air 01/25/24 0400 Dressing Status Clean, dry & intact 01/24/24 1600 Number of days: 1 Elimination: Continence: Bowel: yes Bladder: yes Urinary Catheter: None Colostomy/Ileostomy/Ileal Conduit: None Date of Last BM:01/29 Intake/Output Summary (Last 24 hours) at 01/25/2024 0858 Last data filed at 01/25/2024 0400 Gross per 24 hour Intake 0 ml Output 1769 ml Net -1769 ml I/O last 3 completed shifts: In: 1302 (15.6 mL/kg) [I.V.:1302 (15.6 mL/kg)] Out: 2851 (34.2 mL/kg) [Urine:1881 (0.6 mL/kg/hr); Chest Tube:970] Weight: 83.5 kg Safety Concerns: none Impairments/Disabilities: none Nutrition Therapy: Current Nutrition Therapy: Oral diet: carb control 4 carbs/meal (1800kcals/day) Routes of Feeding: oral Liquids: thin liquids Daily Fluid Restriction: no Last Modified Barium Swallow with Video (Video Swallowing Test): not done Treatments at the Time of Hospital Discharge: Respiratory Treatments: none Oxygen Therapy: is not on home oxygen therapy. Ventilator: No ventilator support Rehab Therapies: physical therapy, occupational therapy, and nursing Weight Bearing Status/Restrictions: sternal precautions Other Medical Equipment (for information only, NOT a DME order): wheeled walker Other Treatments: none Patient's personal belongings (please select all that are sent with patient): glasses and razor, phone RN SIGNATURE: MANAGEMENT/SOCIAL WORK SECTION Inpatient Status Date: 01/18/2024 Discharging to Facility[facility] Address: [address] [place] [address] Fax: Dialysis Facility (if applicable) Name: Address: Dialysis Schedule: Phone: Fax: Hazardous Waste Technician/Transfer Iron Operator signature: ICIAN SECTION Name: Jorge Salamanca Prognosis: good Condition at Discharge: stable Rehab Potential (if transferring to Rehab): good Recommended Labs or Other Treatments After Discharge: Wound care/dressing changes: -Surgical incisions leave open to air, cleanse daily with mild soap & warm water, pat dry, no lotion or powders on incision.Call if incision becomes reddened, opens or drains. Respiratory Care: -Cough and Deep Breath; Use incentive spirometry 10 times every hour while awake for 2 weeks. -Oxygen therapy-prn- Maintain oxygen sat> 92% Medications: -see Medication reconciliation (Med rec) Additional Orders: -Sternal precautions (no lifting, pushing, pulling >10 lbs) for 6 weeks-use heart pillow -Vitals every 8 hours while awake-call for fever and chills -Daily weights- call for weight gain -Wear TEDs during day and off at night. Lab/Imaging Work: -BMP/CBC daily Activity/Weight Bearing: -Up with assistance: up in chair for all meals, ambulate 3-4 times a day -Ok to shower with assist (if pt has IV line then only if completely covered) Therapies: -PT: Eval and treat OT: eval and treat Follow up Appointments: Michael Vasquez Date:02/13/24 Time: 10:00am Post op follow up [address] [facility] [address] [facility] The individual is being admitted to a nursing facility directly from an [facility] or a unit of a [facility] that is not operated by or licensed by [facility] under section 5119.14 or 5160-3-15.1 5 The individual requires the level of services provided by a nursing facility for the condition for which he or she was treated in the hospital and, Physician Certification: I certify the above information and transfer of Jorge Salamanca is necessary for the continuing treatment of the diagnosis listed and that he requires acute rehab for less than 30 days. Update Admission H&P: Changes in H&P as follows: see below 78 year old male patient with a PMHx that includes HTN, HLD, T2DM and CKD. He presented to ED with complaints of chest pain and SOB. Symptoms had been intermittent since 2 days prior. He had chest pain previously that resolved with TUMS. The chest pain returned the following night but then radiated to back, arms and jaw. Symptoms did not resolve with TUMS this time which prompted his visit to the ED. Workup revealed slightly inverted T waves on EKG. Initial troponin was 0.19. He was admitted for suspected NSTEMI and taken to the bolt labeler. Cath showed multivessel CAD and Cardiothoracic Surgery was consulted for surgical evaluation. He consented to surgical intervention and was taken to the operating room on 01/23/24 for CABGx4 with sternal plating with Dr. Johnson. Postoperative course was uncomplicated. After he was hemodynamically stable and medically optimized he was discharged to [facility] for further physical therapy on POD#8. PHYSICIAN SIGNATURE: after discussing with CT Surgeon - Dr. Johnson documented in this encounter [facility] 01-31-2024 History of Presen t illness Narrative Images from the original note were not included. Nephrology Progress Note Patient: Jorge Salamanca Room number: T1-105/T1-105 A Date of Admit: 01/17/2024 LOS: 13 days Admitting physician: Loretta Johnson DO Referring physician: Loretta Johnson DO Outpatient Silk Trimmer: Dr. Light[facility] Assessment/Plan: 78 y.o. male with a past medical history of CKD, DM, HTN, DLD who was admitted on 01/17/2024 with chest pain, found to have NSTEMI with multivessel CAD on [facility]. Consulted for pre-op risk stratification. S/p CABG 01/22. Now with ALEXANDER. #Nonoliguric ALEXANDER on CKD3b -Cr is downtrending and at 2.72 today. Suspect also with ischemic ATN. Ott was in place with good UOP (Ott has since been removed), had responded to lasix challenge. Lytes/Acid-base: Na 138, bicarb 21 Ca/Phos: Ca 8.6, last Phos 4.9 HTN/Volume status: recent Bps are acceptable. Remains euvolemic on exam today. Remains on RA, last CXR from 01/30/24 remains stable. Anemia: Hgb 10.3 #NSTEMI s/p CABG 01/22 #NAGMA #DM #HTN #Afib with RVR Recommendations: -Will continue to hold diuresis today -Trend renal function daily -Changed ONS to Nepro Carb Steady Thank you for this consult, we will continue to follow. Please call or page if any questions [facility] Pager: [phone] Office: [phone]. Office Subjective: Patient was seen and examined, and he states that he is feeling well today. He denies concerns for dyspnea, worsening peripheral edema, or nausea. He recalls that his blood glucose level was with notable increase after he consumed his ONS yesterday. 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 acetaminophen, 1,000 mg, Oral, q8h amiodarone, 400 mg, Oral, BID amLODIPine, 2.5 mg, Oral, Daily apixaban, 5 mg, Oral, BID clopidogrel, 75 mg, Oral, Daily gabapentin, 300 mg, Oral, BID insulin glargine, 10 Units, SubCUTAneous, q24h insulin lispro, 0-6 Units, SubCUTAneous, TID WC levothyroxine, 100 mcg, Oral, qAM AC Lidocaine, 1 patch, Topical, Daily metoprolol tartrate, 12.5 mg, Oral, BID pantoprazole, 40 mg, Oral, qAM AC polyethylene glycol (PEG) 3350, 17 g, Oral, Daily rosuvastatin, 40 mg, Oral, Daily senna-docusate sodium, 2 tablet, Oral, Nightly sodium chloride 0.9%, 10 mL, IntraVENous, 2 times per day Review of Systems: All other ROS negative except those noted above. Physical Exam: Vitals: 01/31/24 0000 01/31/24 0400 01/31/24 0600 01/31/24 0800 BP: 104/52 130/57 139/55 BP Location: Left arm Left arm Patient Position: Lying Lying Pulse: 57 62 68 Resp: 16 16 Temp: 36.2 C (97.2 F) TempSrc: Temporal SpO2: 96% 97% 99% Weight: 81 kg (178 lb 8 oz) Height: Admission weight: 81.6 kg (180 lb) Wt Readings from Last 3 Encounters: 01/31/24 81 kg (178 lb 8 oz) I/O last 3 completed shifts: In: 240 (3 mL/kg) [P.O.:240] Out: 1300 (16.1 mL/kg) [Urine:1300 (0.4 mL/kg/hr)] Weight: 81 kg Net IO Since Admission: -4,611.18 mL [01/31/24 1137] General: A&O x 3, NAD HEENT: Sclera clear, EOMI, MMM, Nose/ears/hearing grossly normal Neck: Supple, trachea midline, no mass, no TM Heart: RRR, no rub/heave Lungs: Clear bilaterally, unlabored Abd: Soft, (+) BS, non-tender Ext: 1-2+ LE edema Neuro: No tremor/myoclonus Skin: warm and dry, no rash LABS: Recent Labs 01/29/2452601/30/2452901/31/2414 WBC 10.1 11.6* 11.8* HGB 10.4* 10.3* 9.9* HCT 32.5* 31.9* 30.9* MCV 87.1 85.3 84.9 PLT 202 254 297 No results found for: IRON, TIBC, FERRITIN No results found for: [id number], FOLATE Recent Labs 01/29/2452601/30/2452901/31/24613 NA 136 137 138 K 4.1 5.2* 4.1 CL 103 104 105 CO2 20* 21* 21* BUN 56* 63* 59* CREATININE 2.93* 2.79* 2.72* GLUCOSE 124* 119* 146* CALCIUM 8.6 8.6 8.6 ANIONGAP 12 12 11 Lab Results Component Value Date CALCIUM 8.6 01/31/2024 CAION 4.10 (L) 01/25/2024 PHOS 4.9 (H) 01/25/2024 No components found for: [id number] Diagnostic Studies: CXR 01/24 FINDINGS: The patient is status post CABG with the usual sternal wires and surgical clips. The [place]-Zeynep catheter has been withdrawn. An introducer sheath remains in place in the right internal jugular vein. The heart is mildly enlarged. Mediastinal and bilateral chest tubes are in place. There is no pneumothorax. There is mild prominence of the central pulmonary vasculature. Impression: 1. Postoperative changes (CABG). 2. Chest tubes without pneumothorax. 3. Prominence of the central pulmonary vasculature consistent with mild congestive heart failure/fluid overload. Personally reviewed available data [labs, MARS, radiologic studies, and electronic records]. Parts of assessment/plan may have been copied from prior entry and amended as needed. It reflects full evaluation and pathophysiology of processes involved. Images from the original note were not included. PHYSICAL THERAPY [facility] Treatment Note Name/MRN: Jorge Salamanca ([id number]) Date of : 1945 Age: 78 y.o. Room/Bed: T1-105/T1-105 A Discharge Recommendation: IP Rehab Equipment Needed: (TBD at next level of care) Assessment Pt limited self this session and did not want to walk in hallway or do P&C ex's. Overall min assist for gait, and functional mobility. Recommend IP rehab at discharge. Subjective Pt up in chair. Agreeable to PT. Pain: Pt denies any current pain. Medical Precautions: No active isolations Proper PPE donned/doffed in accordance with facility standards. Fall Risk: Castro Fall Risk Score: 35 (Medium Risk) Precautions/Restrictions: Other Position/Activity Restriction: sternal precautions Lines/Drains/Airways: tele Overall Cognitive Status: WNL Overall Orientation Status: Oriented x4 Family/Caregiver Present: none Objective Bed Mobility Sit to supine: Mod Assist Cues for scooting over in bed. Transfers/Mobility Sit to stand: Min Assist Stand to sit: Min Assist Stood from recliner, toilet and rollator Device(s) used: Rollator Ambulation Ambulation 1 Assistive device(s) used: Rollator Assist level: Min Assist Distance (ft): 10ft, 5ft, 5ft, 10 ft Quality of gait: slow aniyah, instability through all phases Balance During Session: Pt able to manage own pants but needed min assist for balance. Pt stood at sink to wash hands, min assist. Fatigued from standing and needed to sit down on rollator. Cues to back up rollator against a surface and put brakes on before sitting. Posture: fair Exercises Exercises Comments: Declined to do P&C ex's at this time, I.S. x 10 reps ~1000-1250mL. Plan Continue acute PT per plan of care. Safety/Education Safety Safety Devices in place: All fall risk precautions in place, call light within reach, left in bed, and no alarms engaged upon entry Restraints: No Education Gait, Transfers, Sternal precautions, Balance, Bed mobility Outcome Measures AM-PAC AM-PAC Inpatient Mobility Raw Score (No Stairs) : 15 JH-HLM JH-HLM Score: Walked 25 ft or more (i.e. walked outside of room) Goals Patient Stated Goal: to get to rehab Encounter Problems Encounter Problems (Active) Cardiac Patient will perform bed mobility with independence in order to improve independence and prepare for out of bed mobility. (Progressing) Start: 01/24/24 Expected End: 02/21/24 Patient will complete sit to stand transfer with independence to none in order to improve safety and prepare for out of bed mobility. (Progressing) Start: 01/24/24 Expected End: 02/21/24 Patient will ambulate 300 feet or ambulate 5 minutes with independence with RPE of 14 or lower. (Progressing) Start: 01/24/24 Expected End: 02/21/24 Patient will ascend and descend 8 # stairs with independence rail for balance only. (Not Addressed) Start: 01/24/24 Expected End: 02/21/24 Patient will be independent with P&C exercises. (Not Addressed) Start: 01/24/24 Expected End: 02/21/24 Patient will be independent with managing secretions and home walking program. (Progressing) Start: 01/24/24 Expected End: 02/21/24 Pain - Adult Encounter Problems (Resolved) Pain - Adult Therapy Time Individual Co-treatment Time In 922 Time Out 0941 Minutes 18 Timed Code Treatment Minutes: 18 Minutes (FA) Yomaira Sneed PTA Images from the original note were not included. Cardiothoracic Surgery/CCM Progress Note PATIENT NAME: Jorge Salamanca DATE: 01/31/24 HPI: 78 year old male patient with a PMHx that includes HTN, HLD, T2DM and CKD. He presented to ED with complaints of chest pain and SOB. Symptoms had been intermittent since 2 days prior. He had chest pain previously that resolved with TUMS. The chest pain returned the following night but then radiated to back, arms and jaw. Symptoms did not resolve with TUMS this time which prompted his visit to the ED. Workup revealed slightly inverted T waves on EKG. Initial troponin was 0.19. He was admitted for suspected NSTEMI and taken to the bolt labeler. Cath showed multivessel CAD and Cardiothoracic Surgery was consulted for surgical evaluation. Agreeable to surgery, taken to OR on 01/23/[address] Johnson. Surgery/Procedure: 01/23/24: Dr. Johnson- CABG x4, BIMA's, LEVH, sternal plating, TE Interval History: 01/31/24, POD# 8: VSS on RA. No acute issues; dispo planning Review of Systems Constitutional: Negative for diaphoresis, fatigue and fever. Respiratory: Negative for cough, shortness of breath and wheezing. Cardiovascular: Negative for chest pain, palpitations and leg swelling. Gastrointestinal: Negative for abdominal distention, constipation and diarrhea. Skin: Negative for color change, pallor and rash. Objective: Last BM Date: 01/29/24 Vitals: BP: 130/57, MAP (mmHg): 78, BP Method: Automatic Heart Rate: 62 Resp: 16 Temp: 36.2 C (97.2 F), Temp Source: Temporal BMI (Calculated): 28.82 BMP: Recent Labs 01/28/24 1102 01/29/24 0527 01/30/24 0530 NA 132* 136 137 K 4.6 4.1 5.2* CL 100 103 104 CO2 24 20* 21* BUN 54* 56* 63* CREATININE 3.09* 2.93* 2.79* CALCIUM 8.1* 8.6 8.6 CBC: Recent Labs 01/29/24 0527 01/30/24 0530 01/31/24 0614 WBC 10.1 11.6* 11.8* HGB 10.4* 10.3* 9.9* HCT 32.5* 31.9* 30.9* PLT 202 254 297 MCV 87.1 85.3 84.9 RDW 14.0 14.1 14.0 Physical Exam Cardiovascular: Rate and Rhythm: Normal rate and regular rhythm. Heart sounds: Normal heart sounds. No murmur heard. No friction rub. Pulmonary: Effort: Pulmonary effort is normal. Skin: General: Skin is warm and dry. Capillary Refill: Capillary refill takes less than 2 seconds. Findings: Bruising and ecchymosis present. Comments: Surgical Incisions: well approximate; clean dry with no drainage noted. Surrounding skin no redness, warmth, or signs of infection noted. Neurological: Mental Status: He is alert. Psychiatric: Behavior: Behavior is cooperative. 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 HTN HLD Post operative Pulm Management: Normal Post-operative Course Post-operative Atrial Fibrillation: [x]Yes [] No Acute blood loss anemia/consumptive thrombocytopenia Plan: Patient Status: Telemetry Medications: ASA statin BB NOAC/Amio taper for POAF Plavix for one year due to NSTEMI presentation Home meds levothyroxine, gabapentin GI prophy: PO protonix DVT prophy: Heparin SubQ Bowel: senna/miralax Interventions: Pulmonary hygiene: IS and Acapella TEDs, SCDs Restraints: []Yes [x] No Consults: Endocrinology following- insulin management D/c recs: continue current insulin regimen on d/c to rehab; follow up with PCP Nephrology following Cardiology following Therapies: PT: IPR OT: IPR Disposition: TBD - Dispo planning, pending auth to [facility] Tele Status A total of 11 minutes were spent between the [id number] encounter, physical exam, reviewing the medical history, coordinating the patient's care, counseling/educating the patient, ordering medications/test/procedures, interpreting results and documenting clinical information in the patients electronic health record on the day of the encounter. The patient was seen and examined independently and relevant data reviewed by myself. A full chart review was performed. Patient discussed and plan of day developed from multidisciplinary rounds between Cardiothoracic Surgery (Cardiothoracic Surgeon, HORTENCIA) and Critical Care Attending Cardiac Core Medications: ASA, Plavix, Statin, and BB EF: 74% 01/18/24 Blood Conservation: None noted in post-operative period Art Display Maker: Dr. Arriaga Images from the original note were not included. Nephrology Progress Note Patient: Jorge Salamanca Room number: T1-105/T1-105 A Date of Admit: 01/17/2024 LOS: 12 days Admitting physician: Loretta Johnson DO Referring physician: Loretta Johnson DO Outpatient Silk Trimmer: Dr. Light/[facility] Assessment/Plan: 78 y.o. male with a past medical history of CKD, DM, HTN, DLD who was admitted on 01/17/2024 with chest pain, found to have NSTEMI with multivessel CAD on [facility]. Consulted for pre-op risk stratification. S/p CABG 01/22. Now with ALEXANDER. #Nonoliguric ALEXANDER on CKD3b -Cr is downtrending and at 2.79 today. Suspect also with ischemic ATN. Ott was in place with good UOP (Ott has since been removed), had responded to lasix challenge. Lytes/Acid-base: Na 137, bicarb 21 Ca/Phos: Ca 8.6, last Phos 4.9 HTN/Volume status: recent Bps are improved. Remains euvolemic on exam today. Remains on RA, CXR today 01/29/24 remains stable. Anemia: Hgb 10.3 #NSTEMI s/p CABG 01/22 #NAGMA #DM #HTN #Afib with RVR Recommendations: -Will continue to hold diuresis today -Trend renal function daily Thank you for this consult, we will continue to follow. Please call or page if any questions [facility] Pager: [phone] Office: [phone]. Office Subjective: Patient was seen and examined, and he states that he is feeling well today. He is trying to stay positive despite recent events including the of his . He seemed nostalgic on evaluation this afternoon. He denies concerns for dyspnea, worsening peripheral edema, or nausea. 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 acetaminophen, 1,000 mg, Oral, q8h amiodarone, 400 mg, Oral, BID amLODIPine, 2.5 mg, Oral, Daily apixaban, 5 mg, Oral, BID clopidogrel, 75 mg, Oral, Daily gabapentin, 300 mg, Oral, BID insulin glargine, 10 Units, SubCUTAneous, q24h insulin lispro, 0-6 Units, SubCUTAneous, TID WC levothyroxine, 100 mcg, Oral, qAM AC Lidocaine, 1 patch, Topical, Daily metoprolol tartrate, 12.5 mg, Oral, BID pantoprazole, 40 mg, Oral, qAM AC polyethylene glycol (PEG) 3350, 17 g, Oral, Daily rosuvastatin, 40 mg, Oral, Daily senna-docusate sodium, 2 tablet, Oral, Nightly sodium chloride 0.9%, 10 mL, IntraVENous, 2 times per day Review of Systems: All other ROS negative except those noted above. Physical Exam: Vitals: 01/30/24 0740 01/30/24 0904 01/30/24 1200 01/30/24 1525 BP: 125/54 131/68 BP Location: Left arm Patient Position: Lying Pulse: 95 86 Resp: 18 16 18 Temp: 36.3 C (97.3 F) 36.7 C (98 F) 36.4 C (97.5 F) TempSrc: Temporal Temporal Temporal SpO2: 94% 95% Weight: Height: Admission weight: 81.6 kg (180 lb) Wt Readings from Last 3 Encounters: 01/30/24 80.5 kg (177 lb 6.4 oz) I/O last 3 completed shifts: In: 490 (6.1 mL/kg) [P.O.:480; I.V.:10 (0.1 mL/kg)] Out: 1350 (16.8 mL/kg) [Urine:1350 (0.5 mL/kg/hr)] Weight: 80.5 kg Net IO Since Admission: -4,011.18 mL [01/30/24 1531] General: A&O x 3, NAD HEENT: Sclera clear, EOMI, MMM, Nose/ears/hearing grossly normal Neck: Supple, trachea midline, no mass, no TM Heart: RRR, no rub/heave Lungs: Clear bilaterally, unlabored Abd: Soft, (+) BS, non-tender Ext: 1-2+ LE edema Neuro: No tremor/myoclonus Skin: warm and dry, no rash LABS: Recent Labs 01/28/24 0004 01/29/24 0527 01/30/24 0530 WBC 7.9 10.1 11.6* HGB 8.1* 10.4* 10.3* HCT 24.5* 32.5* 31.9* MCV 84.8 87.1 85.3 PLT 162 202 254 No results found for: IRON, TIBC, FERRITIN No results found for: [id number], FOLATE Recent Labs 01/28/24 1102 01/29/24 0527 01/30/24 0530 NA 132* 136 137 K 4.6 4.1 5.2* CL 100 103 104 CO2 24 20* 21* BUN 54* 56* 63* CREATININE 3.09* 2.93* 2.79* GLUCOSE 243* 124* 119* CALCIUM 8.1* 8.6 8.6 ANIONGAP 8 12 12 Lab Results Component Value Date CALCIUM 8.6 01/30/2024 CAION 4.10 (L) 01/25/2024 PHOS 4.9 (H) 01/25/2024 No components found for: [id number] Diagnostic Studies: CXR 01/24 FINDINGS: The patient is status post CABG with the usual sternal wires and surgical clips. The [place]-Zeynep catheter has been withdrawn. An introducer sheath remains in place in the right internal jugular vein. The heart is mildly enlarged. Mediastinal and bilateral chest tubes are in place. There is no pneumothorax. There is mild prominence of the central pulmonary vasculature. Impression: 1. Postoperative changes (CABG). 2. Chest tubes without pneumothorax. 3. Prominence of the central pulmonary vasculature consistent with mild congestive heart failure/fluid overload. Personally reviewed available data [labs, MARS, radiologic studies, and electronic records]. Parts of assessment/plan may have been copied from prior entry and amended as needed. It reflects full evaluation and pathophysiology of processes involved. [facility] [place] [facility]Electrophysiology Progress Note CC: CAD HPI / Interval History: Jorge Salamanca is an 78 y.o. male with past medical history significant for hypertension, hyperlipidemia, CKD stage IIIb, DM2, and overweight. He presented to the hospital with hx of KLINE, chest pressure radiating to arms not relieved by Tums ( recently ). His troponin peaked at 2.250, proBNP >1300. EKG SR with PAC, abnormal repolarization in lateral leads. His TTE show normal LVEF 75% with mild AVR. He underwent uncomplicated LHC with Dr. Arriaga which showed MVCAD. CTS c/s. He had CABG x [address] Johnson on 01/23/24. He denies chest pain, palpitations, dizziness, syncope, swelling, bleeding. Has KLINE. Remains in afib. Appetite is improving. He is waiting for approval for rehab. Assessment/Plan HF NYHA Class [] I [] II [] III [] IV []Unable to assess NSTEMI s/p CABGx4 (In situ EPSTEIN-LAD, In situ SUHAS with reverse SVG extension to RI, RPDA, and RPL sequentially) on 01/23/[address] Johnson - Jason. Denies angina. Awaiting rehab. Continue clopidogrel, apixaban, rosuvastatin, metoprolol, PPI. Continue amlodipine per CTS for arterial grafts.Cardiac rehab recommended once cleared by CTS. Post op Afib - Rate controlled. Asymptomatic in afib. Continue oral amiodarone, with taper. Continue apixaban. Continue metoprolol. HTN - Controlled. Continue amlodipine, metoprolol. HLD - Continue rosuvastatin. LDL 127, goal < 70. Recheck in 8-12 weeks. DM2 - Endocrine following. CKD stage 3 b - Stable. Creatinine 2.79 today, improved from 3.0. Post op anemia - stable and improved this am. Plans for IP rehab noted. Follow up in Cardiology office arranged. Medications: acetaminophen, 1,000 mg, Oral, q8h amiodarone, 400 mg, Oral, BID amLODIPine, 2.5 mg, Oral, Daily apixaban, 5 mg, Oral, BID clopidogrel, 75 mg, Oral, Daily gabapentin, 300 mg, Oral, BID insulin glargine, 10 Units, SubCUTAneous, q24h insulin lispro, 0-6 Units, SubCUTAneous, TID WC levothyroxine, 100 mcg, Oral, qAM AC Lidocaine, 1 patch, Topical, Daily metoprolol tartrate, 12.5 mg, Oral, BID pantoprazole, 40 mg, Oral, qAM AC polyethylene glycol (PEG) 3350, 17 g, Oral, Daily rosuvastatin, 40 mg, Oral, Daily senna-docusate sodium, 2 tablet, Oral, Nightly sodium chloride 0.9%, 10 mL, IntraVENous, 2 times per day Infusion Medications: Physical Examination: Vitals: 01/30/24 0645 01/30/24 0740 01/30/24 0904 01/30/24 1200 BP: 101/51 125/54 131/68 BP Location: Left arm Patient Position: Lying Pulse: 63 95 86 Resp: 18 16 Temp: 36.3 C (97.3 F) 36.7 C (98 F) TempSrc: Temporal Temporal SpO2: 97% 94% Weight: Height: Intake/Output Summary (Last 24 hours) at 01/30/2024 1301 Last data filed at 01/30/2024 0603 Gross per 24 hour Intake 250 ml Output 250 ml Net 0 ml Patient Vitals for the past 168 hrs: Weight Weight Method 01/30/24 0600 177 lb 6.4 oz (80.5 kg) -- 01/29/24 0600 176 lb 5.9 oz (80 kg) -- 01/28/24 0600 176 lb 5.9 oz (80 kg) -- 01/27/24 0600 177 lb 14.4 oz (80.7 kg) -- 01/26/24 0446 184 lb 3.2 oz (83.6 kg) -- 01/25/24 0556 184 lb (83.5 kg) Standing scale 01/24/24 0600 175 lb 7.8 oz (79.6 kg) -- Physical Exam Vitals reviewed. Constitutional: General: He is not in acute distress. Appearance: Normal appearance. He is not diaphoretic. HENT: Head: Normocephalic. Mouth/Throat: Pharynx: No oropharyngeal exudate. Eyes: General: Right eye: No discharge. Left eye: No discharge. Extraocular Movements: Extraocular movements intact. Cardiovascular: Rate and Rhythm: Normal rate. Rhythm regularly irregular. Pulses: Normal pulses. Heart sounds: Normal heart sounds. No murmur heard. No gallop. Pulmonary: Effort: Pulmonary effort is normal. No respiratory distress. Breath sounds: Decreased breath sounds present. Chest: Comments: Mid sternal incision without drainage, well approximated. Abdominal: General: Bowel sounds are normal. There is no distension. Palpations: Abdomen is soft. Tenderness: There is no abdominal tenderness. Musculoskeletal: General: Normal range of motion. Cervical back: Normal range of motion and neck supple. Right lower leg: No edema. Left lower leg: No edema. Skin: General: Skin is warm and dry. Capillary Refill: Capillary refill takes less than 2 seconds. Neurological: General: No focal deficit present. Mental Status: He is alert and oriented to person, place, and time. Cranial Nerves: No cranial nerve deficit. Psychiatric: Mood and Affect: Mood normal. Laboratory Tests: Recent Labs 01/28/24 0004 01/28/24 1102 01/29/24 0501/30/24 0530 NA 129* 132* 136 137 K 3.2* 4.6 4.1 5.2* CL 92* 100 103 104 CO2 22 24 20* 21* BUN 53* 54* 56* 63* CREATININE 3.22* 3.09* 2.93* 2.79* Recent Labs 01/28/24 0004 01/29/2452601/30/24 0530 WBC 7.9 10.1 11.6* HGB 8.1* 10.4* 10.3* HCT 24.5* 32.5* 31.9* MCV 84.8 87.1 85.3 PLT 162 202 254 No results for input(s): CKTOTAL, CKMB, CKMBINDEX, TROPONINI in the last 72 hours. No results for input(s): BNP in the last 72 hours. No results for input(s): TRIG, HDL, LDLCALC, CHOL in the last 72 hours. No results found for: LDLCHOLESTER Lab Results Component Value Date TSH 7.423 (H) 01/29/2024 EF BP Date Value Ref Range Status 01/18/2024 74 55 - 100 % Final 01/17/24 TRANSTHORACIC ECHOCARDIOGRAM (TTE) COMPLETE (CONTRAST/BUBBLE/3D PRN) 01/18/2024 9:23 AM (Final) Interpretation Summary Left Ventricle: Left ventricle size is normal. Mildly increased wall thickness. Normal left ventricular systolic function. EF by 2D Simpsons Biplane is 74%. Normal wall motion. Diastolic dysfunction present with normal LVEF. Right Ventricle: Right ventricle size is normal. Normal systolic function. Aortic Valve: Mild (1+) regurgitation. Left Atrium: Left atrium is mildly dilated. Pulmonary Arteries: Pulmonary artery was not well visualized. Mild pulmonary hypertension present. No comparison record. Signed by: Rafita Fernandez MD on 01/18/2024 9:23 AM Chest X-ray 01/29/24: LUNGS AND PLEURA: Calcified granulomata throughout both lungs. No new consolidation. Subsegmental left basilar atelectasis. Small left pleural effusion. Other reports reviewed: [facility] 01/23/24: Conclusion NSTEMI due to 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 LM with 70% distal stenosis LAD with ostial and proximal 85% stenosis, 80% mid segment stenosis and 50% distal stenosis Ramus intermedius with an 80% proximal stenosis and 70% mid to distal segment stenoiss Left circumflex with an 80% mid segment stenosis RCA with 99% distal segment stenosis at the bifurcation to the RPDA and RPLV. 90% stenosis of proximal RPL and 100% TURBINATED BONE GRINDER of ostial RPDA--distal vessel filling by [id number] collaterals. Normal LVEDP; no aortic stenosis. Recommendations Patient management should include: Aggressive risk factor modification, optimal medical management and cardiac rehabillitation. - Will transfer to [facility] for Heart Team consultation and consideration of coronary revascularization options--CABG vs. Protected PCI with Impella Cardiac Tests: ECG: no new EKGs Telemetry findings reviewed: Afib 80-100 EF BP Date Value Ref Range Status 01/18/2024 74 55 - 100 % Final LINSU Solorzano CNP Date Of Service 01/30/2024 Nutrition Assessment Type and Reason for Visit: Reassess Nutrition Recommendations/Plan: Continue diet as ordered Continue ONS: Ensure Surgery BID. Will add cup of ice to be delivered with Ensure Pt received diet education as described in assessment RD will monitor overall nutrition status and will follow weekly Diet Education: Educated on heart healthy diet Learners: Patient Readiness: Acceptance Method: Explanation and Handout Response: Verbalizes Understanding Contact name and number provided. Malnutrition Assessment: Malnutrition Status: At risk for malnutrition (Comment) (s/p open heart surgery, NPO) Context: Acute Illness Findings of the 6 clinical characteristics of malnutrition: Energy Intake: 75% or less of estimated energy requirements for 7 or more days Weight Loss: No significant weight loss Body Fat Loss: No significant body fat loss Muscle Mass Loss: (appears consistent with normal aging) [employer] Strength: Not Performed Nutrition Assessment: Pt remains on CTV ICU s/p CABGx4 on 01/22. He reports he is eating as usual, describes usual intake as two meals daily, including a light breakfast and then he may also have a snack. He reports gradual weight loss of ~5# annually since retireing in 2012, denies significant, acute weight loss. He has not been consuming ONS as he states they don't do anything for me. He reports he does not mind the taste of the Ensure, just has not been consuming it. RD explained rationale for ONS and encouraged ONS intake to which pt is agreeable, preferring to receive Ensure with a cup of ice. Pt has heart healthy diet handout in room. Provided limited diet instruction due to limited PO intake at baseline. Emphasized decreasing saturated fat intake, choosing lean proteins and low fat dairy, encouraged vegetable intake. RD also encouraged overall increased PO intake. Pt denies questions and has [facility] RD phone number for future reference Estimated Daily Nutrient Needs: Energy Requirements Based On: Kcal/kg Weight Used for Energy Requirements: [place] (25-30 kcal/kg) Weight for Energy Calculation (kg): 64.4 kg Total Energy Requirements (kcals/day): 6072-6840 Weight Used for Protein Requirements: [place] (1.2-1.5 g/kg) Weight in Kg Used for Protein Requirements: 64.4 kg Estimated Total Protein (g/day): 77-97 Estimated Daily Total Fluid (ml/day): per MD Nutrition Related Findings: Nutrition History: Independent of feeding. Lives with: Alone Teeth: Missing teeth Room Service Room Service: Selective Sheng Scale Score: 20. Wound Type: Surgical Incision Net IO Since Admission: -3,681.18 mL [01/30/24 1246] Edema: RUE Edema: None, LUE Edema: None, RLE Edema: None, LLE Edema: None Bowel Sounds (All Quadrants): Active Abdomen Inspection: Soft Last BM Date: 01/29/24 O2 Delivery Method: Nasal cannula, FiO2 (%): 50 %, O2 Flow Rate (L/min): 1 L/min Labs and meds reviewed: acetaminophen, 1,000 mg, Oral, q8h amiodarone, 400 mg, Oral, BID amLODIPine, 2.5 mg, Oral, Daily apixaban, 5 mg, Oral, BID clopidogrel, 75 mg, Oral, Daily gabapentin, 300 mg, Oral, BID insulin glargine, 10 Units, SubCUTAneous, q24h insulin lispro, 0-6 Units, SubCUTAneous, TID WC levothyroxine, 100 mcg, Oral, qAM AC Lidocaine, 1 patch, Topical, Daily metoprolol tartrate, 12.5 mg, Oral, BID pantoprazole, 40 mg, Oral, qAM AC polyethylene glycol (PEG) 3350, 17 g, Oral, Daily rosuvastatin, 40 mg, Oral, Daily senna-docusate sodium, 2 tablet, Oral, Nightly sodium chloride 0.9%, 10 mL, IntraVENous, 2 times per day BMP: Recent Labs 01/28/24 1102 01/29/24 0527 01/30/24 0530 NA 132* 136 137 K 4.6 4.1 5.2* CL 100 103 104 CO2 24 20* 21* BUN 54* 56* 63* CREATININE 3.09* 2.93* 2.79* GLUCOSE 243* 124* 119* CALCIUM 8.1* 8.6 8.6 Recent Labs 01/28/24 1212 01/28/24 1558 01/29/24 0743 01/29/24 1451 01/29/24 1749 01/30/24 0735 POCGLU 200* 235* 134* 129* 209* 126* Lab Results Component Value Date HGBA1C 6.0 (H) 01/18/2024 Lab Results Component Value Date EFBP 74 01/18/2024 Lab Results Component Value Date CHOL 180 01/18/2024 HDL 33 (L) 01/18/2024 TRIG 100 01/18/2024 Current Nutrition Therapies: Adult diet Regular; 5 carb choices (75 gm/meal) Current Oral Intake Average Meal Intake: (variable intake documented) Average Supplements Intake: (not drinking much, per pt) Anthropometric Measures: Height: 167.6 cm (5' 6) Current Body Weight: 80.5 kg (177 lb 6.4 oz) Admission Body Weight: 79.9 kg (176 lb 1.6 oz) (01/22 standing scale) Usual Body Weight: (188# on 05/15/23, 186# on 12/13/23) [place] Body Weight (lbs) (Calculated): 142 lbs [place] Body Weight (Kg) (Calculated): 65 kg % [place] Body Weight (Calculated): 123.6 % BMI (kg/m2) (Calculated): 28.6 BMI Categories: Overweight (BMI 25.0-29.9) Wt Readings from Last 10 Encounters: 01/30/24 80.5 kg (177 lb 6.4 oz) Nutrition Diagnosis: Increased nutrient needs related to increase demand for energy/nutrients as evidenced by (surgical wounds s/p open heart surgery) Nutrition Interventions: Food and/or Nutrient Delivery: Continue Current Diet, Continue Oral Nutrition Supplement Nutrition Education/Counseling: Education completed Coordination of Nutrition Care: Continue to monitor while inpatient Goals: Goals: PO intake 75% or greater, by next RD assessment Nutrition Monitoring and Evaluation: Behavioral-Environmental Outcomes: Knowledge or Skill Food/Nutrient Intake Outcomes: Food and Nutrient Intake, Supplement Intake Physical Signs/Symptoms Outcomes: Biochemical Data, GI Status, Skin, Weight Discharge Planning: Too soon to determine Janee Martinez RD, LD Contact: *[phone] or via Zighra chat Images from the original note were not included. OCCUPATIONAL THERAPY [facility] Treatment Note Name/MRN: Jorge Salamanca ([id number]) Date of : 1945 Age: 78 y.o. Room/Bed: T1-105/T1-105 A Discharge Recommendation: IP Rehab Equipment Needed: (continue to assess) Prior Level of Function ADL Assistance: Independent Ambulation Assistance: Independent Transfer Assistance: Independent Assessment Currently, Pt required MIN A for functional transfers and mobility with use of FWW. Pt required MIN A for bed mobility with assist of trunk with focus on sternal precautions. Pt required MIN A for UB ADL and MOD A for LB ADL with use of AE for increased indep. Pt required MIN A for grooming task seated EOB with focus on sternal precautions. Pt is limited by decreased functional endurance, decreased mobility and general weakness hindering indep and safety with functional tasks. Pt would be a GOOD candidate for IPR and would be able to tolerate intensive level therapy. Recommending IPR upon discharge in order to achieve highest level of function. Subjective Pt reclined in bed upon entry- alert with auditory stimuli. Pt cooperative and agreeable to OT TX. Pt reported sternal pain near incision site- RN notified of such. Pt stated My mind says YES & I want to do more but my body is limiting me to some degree! Noted o2 levels desat to 88% with standing activity- educated on PLB technique and recovered within 60 seconds to 94% on RA- RN notified of such. Pt requesting to lay back in bed at the EOS with call light placed within reach and all needs met. Pain: Jay-Holliday Pain Ratin = Hurts a little bit Pain Location: Sternal pain near incision site Medical Precautions: No active isolations Proper PPE donned/doffed in accordance with facility standards. Fall Risk: Castro Fall Risk Score: 60 (High Risk) Precautions/Restrictions: Sternal Precautions: No lifting greater than 10 lbs. Ok for modified UE precautions using Keep Your Move in the Tube technique Lines/Drains/Airways: PIV, central line Family/Caregiver Present: none Objective ADLs LE Dressing: Mod Assist- physical assist required to doff/ adi gripper socks and pants with use of AE + tactile cues for improved technique with increased time. Noted improved 2nd trials using sock aid and yard jockey. Grooming: Supervision, after setup- to wash face, neck and hands while seated EOB- as Pt declined to stand at sink level + verbal cues for gathering supplies required to clean glasses. UE Bathing: Min Assist LE Bathing: Max Assist Bed Mobility Supine to sit: Min Assist- physical assist for trunk elevation with verbal cues to refrain from pulling on bed rail for adherence of sternal precautions. Sit to supine: Min Assist Rolling to right: Min Assist Scooting: Min Assist Transfers/Mobility Sit to stand: Min Assist Stand to sit: Contact Guard Stand step: Min Assist Sitting balance: Supervision Standing balance: Min Assist- dynamic standing balance approx 3 minutes with focus on functional reach with focus on in sternal precautions and use of yard jockey to retrieve items off floor level with tactile cues for improved wt shifting when reaching outside of KELSEY. Functional mobility: Min Assist- ambulated from bed towards door and back with use of FWW + TACTILE CUES for improved posture and step length + verbal cues for PLB technique as Pt tends to mouth breathe Device(s) used: Front wheeled walker Plan Continue acute OT per plan of care. Safety/Education Safety Safety Devices in place: All fall risk precautions in place, call light within reach, left in bed, bed alarm in place, and nurse notified Restraints: No Education Education Given To: patient Education Provided: OT Role, Plan of Care, Precautions, ADL Adaptive Strategies, Transfer Training, Energy Conservation, Orientation, Discharge Recommendations, Benefits of Increasing Activity, and Breathing Techniques Education Method: Verbal, Demonstration, and Teach Back Barriers to Learning: None Education Outcome: Verbalized Understanding, Demonstrated Understanding, and Continued Education Needed AM-PAC AM-PAC Inpatient Daily Activity Raw Score: 16 ADL Inpatient CMS G-Code Modifier: CK Goals Patient Stated Goal: to get stronger Encounter Problems Encounter Problems (Active) Balance Patient will maintain dynamic standing balance for 3-5 minutes with supervision in order to demonstrate decreased risk of falling. (Slowly Progressing) Start: 01/27/24 Expected End: 02/24/24 Bathing Patient will utilize adaptive techniques to bathe body min A. (Slowly Progressing) Start: 01/27/24 Expected End: 02/24/24 Dressing Upper Extremities Patient will complete upper body dressing GA. (Not Addressed) Start: 01/27/24 Expected End: 02/24/24 Dressings Lower Extremities Patient will dress lower body min A. (Slowly Progressing) Start: 01/27/24 Expected End: 02/24/24 Toileting Patient will complete toileting tasks at standard toilet with min assist. (Not Addressed) Start: 01/27/24 Expected End: 02/24/24 Therapy Time Individual Co-treatment Time In 1023 Time Out 1054 Minutes 31 Timed Code Treatment Minutes: 31 Minutes (1-ADL; 1- FUNCT ACT) ISSA Lopez Images from the original note were not included. PHYSICAL THERAPY [facility] Treatment Note Name/MRN: Jorge Salamanca ([id number]) Date of : 1945 Age: 78 y.o. Room/Bed: T1-105/T1-105 A Discharge Recommendation: IP Rehab Equipment Needed: (TBD at next level of care) Assessment Pt was very talkative this session but more motivated. Overall min assist for transfers, gait and bed mobility. Improved ROM with P&C ex's. Pt kept wanting to scoot self back in the chair using arms, showed pt move within the tube technique and he had better follow through. Recommend IP rehab at discharge. Pt with good potential to tolerate 3 hrs of therapy per day. Subjective Pt up in chair. Agreeable to PT. Pain: Pt denies any current pain. Medical Precautions: No active isolations Proper PPE donned/doffed in accordance with facility standards. Fall Risk: Castro Fall Risk Score: 60 (High Risk) Precautions/Restrictions: Sternal Precautions: No lifting greater than 10 lbs. Ok for modified UE precautions using Keep Your Move in the Tube technique Lines/Drains/Airways: tele Overall Cognitive Status: WNL Overall Orientation Status: Oriented x4 Family/Caregiver Present: none Objective Bed Mobility Sit to supine: Min Assist Scooting: Min Assist Bed flat, no rail Transfers/Mobility Sit to stand: Min Assist Stand to sit: Min Assist Stood from recliner and from EOB Device(s) used: Front wheeled walker Ambulation Ambulation 1 Assistive device(s) used: Front wheeled walker Assist level: Min Assist Distance (ft): ~40ft x1, 50 ft x 1 Quality of gait: narrow KELSEY, slow aniyah Exercises Exercises Comments: Performed P&C exercises 1-9 x 10 reps each. Needed intermittent break during ex's due to fatigue. I.S. x 5 reps ~1000-1250mL. Plan Continue acute PT per plan of care. Safety/Education Safety Safety Devices in place: All fall risk precautions in place, call light within reach, left in bed, nurse notified, and no alarms engaged upon entry Restraints: No Education Sternal precautions, gait, Transfers, HEP, Bed mobility Outcome Measures AM-PAC AM-PAC Inpatient Mobility Raw Score (No Stairs) : 15 JH-HLM JH-HLM Score: Walked 25 ft or more (i.e. walked outside of room) Goals Patient Stated Goal: to get to rehab Encounter Problems Encounter Problems (Active) Cardiac Patient will perform bed mobility with independence in order to improve independence and prepare for out of bed mobility. (Progressing) Start: 01/24/24 Expected End: 02/21/24 Patient will complete sit to stand transfer with independence to none in order to improve safety and prepare for out of bed mobility. (Progressing) Start: 01/24/24 Expected End: 02/21/24 Patient will ambulate 300 feet or ambulate 5 minutes with independence with RPE of 14 or lower. (Progressing) Start: 01/24/24 Expected End: 02/21/24 Patient will ascend and descend 8 # stairs with independence rail for balance only. (Not Addressed) Start: 01/24/24 Expected End: 02/21/24 Patient will be independent with P&C exercises. (Progressing) Start: 01/24/24 Expected End: 02/21/24 Patient will be independent with managing secretions and home walking program. (Progressing) Start: 01/24/24 Expected End: 02/21/24 Pain - Adult Encounter Problems (Resolved) Pain - Adult Therapy Time Individual Co-treatment Time In 812 Time Out 912 Minutes 60 Timed Code Treatment Minutes: 40 Minutes (gait, FA, TP) Variance: 20 (supportive listenting as pt just lost his , the day he was admitted she .) Yomaira Sneed PTA Department of Internal Medicine Division of Endocrinology, Diabetes, & Metabolism Endocrinology Note Patient Name: Jorge Salamanca : 1945 AGE: 78 y.o. Room/Bed: T1-105/T1-105 A Admission Date: 01/17/2024 Visit Date: 01/30/2024 Reason for Endocrine Consult: Post Op Glycemic Management Provider/Team Requesting Consult: Dr Solorzano PCP: DO Quita PERRIN Mat Machine Operator: No ASSESSMENT: DM2 without usp use of insulin Steroid induced hyperglycemia HTN HLD ALEXANDER on CKD stage III b Hypothyroidism New A Fib on amiodarone PLAN: Current sugars are fairly controlled Continue Lantus 10 units q24 hours Continue humalog low dose scale with meals Continue home LT4 100mcg daily - recent TSH is 7.4 , acceptable for age. Will hold from making changes to current dose of levothyroxine. ICU goal <180 GMF goal <150 POCT BG ACHS Hypoglycemia management per protocol Carb controlled diet ANTICIPATED ENDOCRINE HOME GOING RECOMMENDATIONS: Optimized for Discharge from Endocrine standpoint: Yes Home Going Endocrine Rx Recommendations-- Continue current insulin regimen on dc to rehab Levothyroxine 100 mcg daily Outpt Follow Up-- PCP SUBJECTIVE/HPI: CHIEF COMPLAINT: Chief Complaint Patient presents with Chest Pain Jorge Salamanca is a 78 year old male patient with a PMHx that includes HTN, HLD, T2DM and CKD. He presented to ED with complaints of chest pain and SOB. Symptoms had been intermittent since 2 days prior. He had chest pain previously that resolved with TUMS. The chest pain returned the following night but then radiated to back, arms and jaw. Symptoms did not resolve with TUMS this time which prompted his visit to the ED. Workup revealed slightly inverted T waves on EKG. Initial troponin was 0.19. He was admitted for suspected NSTEMI and taken to the bolt labeler. Cath showed multivessel CAD and Cardiothoracic Surgery was consulted for surgical evaluation. Agreeable to surgery, taken to OR on 01/23/[address] Johnson. History of Type 2 Diabetes Age at Onset: Early 60s Circumstances surrounding dx: screening Previous hospitalizations for DM: Denies Home DM Medication Regimen: Untreated - since A1C had improved with diet and lifestyle changes and patient was able to lose close to 70 lbs in the last 10 years Previously Used DM Agents: Metformin Glimepiride Injection Sites/Rotation: NA Missed Medication Doses: NA Medication Side Effects: NA Medication Cost Concerns: NA Glucose Monitoring CGM use: No BG Monitoring: has home glucometer Recent Hypoglycemia: Denies Hypoglycemic Treatment Plan: NA Lab Results Component Value Date HGBA1C 6.0 (H) 01/18/2024 Lab Results Component Value Date TSH 7.423 (H) 01/29/2024 Glucose Date/Time Value Ref Range Status 01/30/2024 07:35 AM 126 (H) 70 - 100 mg/dL Final 01/29/2024 05:49 PM 209 (H) 70 - 100 mg/dL Final 01/29/2024 02:51 PM 129 (H) 70 - 100 mg/dL Final 01/29/2024 07:43 AM 134 (H) 70 - 100 mg/dL Final 01/28/2024 03:58 PM 235 (H) 70 - 100 mg/dL Final 01/28/2024 12:12 PM 200 (H) 70 - 100 mg/dL Final Complication History Retinopathy: Denies Neuropathy: Denies HTN: Endorses HLD: Endorses Renal: Endorses- CKD; follows w/ Nephrology Cardiac: Endorses-CAD s/p CABG x4 (01/23/24); NSTEMI CVA: Denies VENKATA: Denies Gastroparesis: Denies H/o Pancreatitis: Denies Impaired Wound Healing: Denies Amputation: Denies Metabolic Dysfunction Associated Steatotic Liver Disease: Denies Hypoglycemic Unawareness: Denies Hypothyroidism 01/29 Patient seen at bedside Doing well overall Awaiting placement to rehab No other concerns at this time Review of Systems All other systems reviewed and are negative. OBJECTIVE: Vitals: 01/30/24 0600 01/30/24 0645 01/30/24 0740 01/30/24 0904 BP: 101/51 125/54 BP Location: Patient Position: Pulse: 63 95 Resp: 18 Temp: 36.3 C (97.3 F) TempSrc: Temporal SpO2: 97% Weight: 177 lb 6.4 oz (80.5 kg) Height: Physical Exam Vitals and nursing note reviewed. Constitutional: General: He is awake. Appearance: Normal appearance. HENT: Head: Normocephalic and atraumatic. Mouth/Throat: Mouth: Mucous membranes are moist. Cardiovascular: Rate and Rhythm: Normal rate and regular rhythm. Comments: Incision intact Pulmonary: Effort: Pulmonary effort is normal. Skin: General: Skin is dry. Neurological: General: No focal deficit present. Mental Status: He is alert and oriented to person, place, and time. Psychiatric: Mood and Affect: Mood normal. Behavior: Behavior normal. 24 hour intake/output: Intake/Output Summary (Last 24 hours) at 01/30/2024 0914 Last data filed at 01/30/2024 0603 Gross per 24 hour Intake 490 ml Output 450 ml Net 40 ml Diet: Adult diet Regular; 5 carb choices (75 gm/meal) Medications (as per EMR): HomeMeds: Current Outpatient Medications Medication Instructions amLODIPine (NORVASC) 5 mg, Oral, Daily gabapentin (NEURONTIN) 600 mg, Oral, 2 times daily levothyroxine (SYNTHROID, LEVOXYL) 100 mcg, Oral, Daily before breakfast metoprolol succinate XL (TOPROL-XL) 100 mg, Oral, Daily omega-3 (FISH OIL) 1,000 mg, Oral, Daily Scheduled Meds:acetaminophen, 1,000 mg, Oral, q8h amiodarone, 400 mg, Oral, BID amLODIPine, 2.5 mg, Oral, Daily apixaban, 5 mg, Oral, BID clopidogrel, 75 mg, Oral, Daily gabapentin, 300 mg, Oral, BID insulin glargine, 10 Units, SubCUTAneous, q24h insulin lispro, 0-6 Units, SubCUTAneous, TID WC levothyroxine, 100 mcg, Oral, qAM AC Lidocaine, 1 patch, Topical, Daily metoprolol tartrate, 12.5 mg, Oral, BID pantoprazole, 40 mg, Oral, qAM AC polyethylene glycol (PEG) 3350, 17 g, Oral, Daily rosuvastatin, 40 mg, Oral, Daily senna-docusate sodium, 2 tablet, Oral, Nightly simethicone, 80 mg, Oral, 4x daily sodium chloride 0.9%, 10 mL, IntraVENous, 2 times per day Continuous Infusions: PRN Meds:PRN medications: calcium gluconate, dextrose, dextrose, glucagon (rDNA), glucose, ipratropium-albuterol, magnesium hydroxide, magnesium sulfate OR magnesium sulfate, melatonin, naloxone, oxyCODONE OR oxyCODONE, potassium chloride OR potassium chloride OR potassium chloride, potassium chloride CR, sodium chloride, sodium chloride 0.9% Diagnostic Workup: I reviewed pertinent Laboratory results, Radiographic results, and Other Clinical Notes at the time of today's encounter. Labs: No components found for: LABA1C No components found for: EAG Lab Results Component Value Date NA 137 01/30/2024 K 5.2 (H) 01/30/2024 CL 104 01/30/2024 CO2 21 (L) 01/30/2024 BUN 63 (H) 01/30/2024 CREATININE 2.79 (H) 01/30/2024 GLUCOSE 119 (H) 01/30/2024 CALCIUM 8.6 01/30/2024 Lab Results Component Value Date CHOL 180 01/18/2024 Lab Results Component Value Date TRIG 100 01/18/2024 Lab Results Component Value Date HDL 33 (L) 01/18/2024 Lab Results Component Value Date LDLCALC 127 (H) 01/18/2024 No results found for: VLDL Lab Results Component Value Date CHOLHDLRATIO 5 01/18/2024 No results found for: [id number] Lab Results Component Value Date TSH 7.423 (H) 01/29/2024 Radiology reportsas per the Radiologist Radiology: POCT ACT Result Date: 01/21/2024 Performed by: [facility], [address] [place] [address] CLIA ID: [id number] ECG 12 lead Sinus bradycardia Electronically Signed On 01-20-2024 18:31:49 EDT by Melina Bolaños Cardiac procedure Result Date: 01/18/2024 NSTEMI due to 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 LM with 70% distal stenosis LAD with ostial and proximal 85% stenosis, 80% mid segment stenosis and 50% distal stenosis Ramus intermedius with an 80% proximal stenosis and 70% mid to distal segment stenoiss Left circumflex with an 80% mid segment stenosis RCA with 99% distal segment stenosis at the bifurcation to the RPDA and RPLV. 90% stenosis of proximal RPL and 100% TURBINATED BONE GRINDER of ostial RPDA--distal vessel filling by [id number] collaterals. Normal LVEDP; no aortic stenosis. Transthoracic echocardiogram (TTE) complete with contrast, bubble, strain, and 3D PRN Result Date: 01/18/2024 Left Ventricle: Left ventricle size is normal. Mildly increased wall thickness. Normal left ventricular systolic function. EF by 2D Simpsons Biplane is 74%. Normal wall motion. Diastolic dysfunction present with normal LVEF. Right Ventricle: Right ventricle size is normal. Normal systolic function. Aortic Valve: Mild (1+) regurgitation. Left Atrium: Left atrium is mildly dilated. Pulmonary Arteries: Pulmonary artery was not well visualized. Mild pulmonary hypertension present. No comparison record. ECG 12 lead Sinus rhythm Atrial premature complexes Abnormal R-wave progression, early transition Repol abnrm suggests ischemia, lateral leads Electronically Signed On 01-18-2024 06:16:41 EDT by Jose Robledo XR chest 1 view Result Date: 01/17/2024 [facility] 1945 [id number] Exam Date/Time: 01/17/2024 23:47 Procedure: XR CHEST 1 VIEW Ordering Provider: ROBLEDO VISHNU Reason For Exam: acute chest pain CLINICAL INFORMATION: Chest pain. Portable view of the chest at 2340 hours is provided without comparison. FINDINGS: The cardiac silhouette and mediastinum are within normal limits. There are no focal infiltrates. However, tiny nodular densities are noted diffusely (miliary pattern). The visualized bones and soft tissues are grossly unremarkable. 1. No focal infiltrates. 2. Diffuse miliary pattern in the lung morrow. This is nonspecific but may indicate histoplasmosis among other entities. 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) Hyperlipemia Hypertension Past Surgical History: Past Surgical History: Procedure Laterality Date CARDIAC CATHETERIZATION Left 01/18/2024 CARDIAC CATHETERIZATION N/A 01/18/2024 Performed by Nicholas Arriaga MD at [facility] Cardiac Buffing And Polishing Wheel Repairer TONSILLECTOMY (HISTORICAL) Allergy(ies): Allergies Allergen Reactions Bee Venom Family History: Family History Problem Relation Name Age of Onset No Known Problems Brother No Known Problems Brother Bipolar disorder Sister Arthritis Sister Lung cancer Father Alzheimer's disease Mother Cancer Father Social History: Social History Tobacco Use Smoking status: Never Passive exposure: Current Smokeless tobacco: Never Tobacco comments: Quit smoking: smokes 3.5 packs daily Substance Use Topics Alcohol use: Not Currently Drug use: Never Portions of the information within this encounter were entered using an electronic dictation system. Best attempts were made to edit/proofread the information prior to note completion. Despite the review of information, some errors may remain. If there are questions related to the information contained within the note please contact the signing physician directly. I spent 25 minutes with the pt which involved coordination of care, medical evaluation, review of records, and/or counseling of the pt regarding his/her condition/disease state/prognosis on the date of this note. Images from the original note were not included. Cardiothoracic Surgery/[facility] Progress Note PATIENT NAME: Jorge Salamanca DATE: 01/30/24 HPI: 78 year old male patient with a PMHx that includes HTN, HLD, T2DM and CKD. He presented to ED with complaints of chest pain and SOB. Symptoms had been intermittent since 2 days prior. He had chest pain previously that resolved with TUMS. The chest pain returned the following night but then radiated to back, arms and jaw. Symptoms did not resolve with TUMS this time which prompted his visit to the ED. Workup revealed slightly inverted T waves on EKG. Initial troponin was 0.19. He was admitted for suspected NSTEMI and taken to the bolt labeler. Cath showed multivessel CAD and Cardiothoracic Surgery was consulted for surgical evaluation. Agreeable to surgery, taken to OR on 01/23/[address] Johnson. Surgery/Procedure: 01/23/24: Dr. Johnson- CABG x4, BIMA's, LEVH, sternal plating, TE Interval History: 01/30/24, POD#7- VSS overnight, NSR on tele, on RA. Resting in chair comfortably. Cr now down-trending. No acute events overnight. Review of Systems Constitutional: Negative for diaphoresis, fatigue and fever. Respiratory: Negative for cough, shortness of breath and wheezing. Cardiovascular: Negative for chest pain, palpitations and leg swelling. Gastrointestinal: Negative for abdominal distention, abdominal pain, nausea and vomiting. Skin: Negative for color change, pallor and rash. Objective: Last BM Date: 01/29/24 Vitals: BP: 101/51, MAP (mmHg): 65, BP Method: Automatic Heart Rate: 63 Resp: 18 Temp: 36.3 C (97.3 F), Temp Source: Temporal BMI (Calculated): 28.65 CXR: BMP: Recent Labs 01/28/24 1102 01/29/24 0527 01/30/24 0530 NA 132* 136 137 K 4.6 4.1 5.2* CL 100 103 104 CO2 24 20* 21* BUN 54* 56* 63* CREATININE 3.09* 2.93* 2.79* CALCIUM 8.1* 8.6 8.6 CBC: Recent Labs 01/28/24 0004 01/29/24 0527 01/30/24 0530 WBC 7.9 10.1 11.6* HGB 8.1* 10.4* 10.3* HCT 24.5* 32.5* 31.9* PLT 162 202 254 MCV 84.8 87.1 85.3 RDW 13.8 14.0 14.1 INR: No results for input(s): INR in the last 72 hours. Physical Exam Cardiovascular: Rate and Rhythm: Normal rate and regular rhythm. Heart sounds: Normal heart sounds. No murmur heard. No friction rub. Pulmonary: Effort: Pulmonary effort is normal. Breath sounds: No decreased breath sounds, wheezing or rhonchi. Abdominal: General: Bowel sounds are normal. There is no distension. Palpations: Abdomen is soft. Tenderness: There is no abdominal tenderness. Skin: General: Skin is warm and dry. Capillary Refill: Capillary refill takes less than 2 seconds. Findings: Bruising and ecchymosis present. Comments: Surgical Incisions: well approximate; clean dry with no drainage noted. Surrounding skin no redness, warmth, or signs of infection noted. Neurological: Mental Status: He is alert. Psychiatric: Behavior: Behavior is cooperative. 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 HTN HLD Post operative Pulm Management: Normal Post-operative Course Post-operative Atrial Fibrillation: [x]Yes [] No Acute blood loss anemia/consumptive thrombocytopenia Plan: Patient status: tele Medications: ASA/Statin BB- Metoprolol 12.5mg BID Started Eliquis for intermittent Afib Amlodipine for BIMAs- continue x30 days postop Plavix for NSTEMI PO Amio- can taper at discharge Continue home meds: Levothyroxine, Gabapentin GI prophy: PO protonix DVT prophy:TEDs, SCDs, and Heparin SubQ Interventions Pulmonary hygiene: IS and Acapella Consults Endocrine following for Insulin management Cardiology following Nephrology following - Holding diuresis - Limit antihypertensives PT/OT: IPR TCC/Discharge Planning Ready for D/C- IPR auth Central Line: []Yes [x] No Arterial Line: []Yes [x] No Ott: []Yes [x] No Restraints: []Yes [x] No Patient discussed and plan of day developed from multidisciplinary rounds between Cardiothoracic Surgery (Cardiothoracic Surgeon, HORTENCIA) and Critical Care Attending Cardiac Core Medications: ASA, Plavix, Statin, and BB EF: 74% 01/18/24 Blood Conservation: None noted in post-operative period Art Display Maker: Dr. Arriaga (cath) Images from the original note were not included. OCCUPATIONAL THERAPY [facility] Name/MRN: Jorge Salamanca ([id number]) Date: 01/29/2024 OT see today treatment attempted this PM, pt requesting to eat lunch upon OT arrival, but agreeable to OT treatment at a lateral time. Will re-attempt as schedule allows. Martin Ferreira OT Patient went back into Afib- rate controlled. He is asymptomatic. Discussed with Dr. Johnson- will start Eliquis. Plan to d/c on Plavix/eliquis LINUS Hicks CNP 01/29/24 Images from the original note were not included. Nephrology Progress Note Patient: Jorge Salamanca Room number: T1-105/T1-105 A Date of Admit: 01/17/2024 LOS: 11 days Admitting physician: Loretta Johnson DO Referring physician: Loretta Johnson DO Outpatient Silk Trimmer: Dr. Light/[facility] Assessment/Plan: 78 y.o. male with a past medical history of CKD, DM, HTN, DLD who was admitted on 01/17/2024 with chest pain, found to have NSTEMI with multivessel CAD on [facility]. Consulted for pre-op risk stratification. S/p CABG 01/22. Now with ALEXANDER. #Nonoliguric ALEXANDER on CKD3b -Cr is downtrending and at 2.93 today. Suspect also with ischemic ATN. Ott in place with good UOP, had responded to lasix challenge. Lytes/Acid-base: Na 136, bicarb 20 Ca/Phos: Ca 8.6, last Phos 4.9 HTN/Volume status: Bps soft. Seems euvolemic on exam today. Remains on RA, CXR today 01/29/24 remains stable. Anemia: Hgb 10.4 #NSTEMI s/p CABG 01/22 #NAGMA #DM #HTN #Afib with RVR Recommendations: -Will continue to hold diuresis today -Trend renal function daily -Limit antihypertensives as able (amlodipine was resumed today) Thank you for this consult, we will continue to follow. Please call or page if any questions [facility] Pager: [phone] Office: [phone]. Office Subjective: Patient was seen and examined, and he states that he is feeling better every day. He denies concerns for worsening dyspnea or worsening peripheral edema this morning. 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 acetaminophen, 1,000 mg, Oral, q8h amiodarone, 400 mg, Oral, BID amLODIPine, 2.5 mg, Oral, Daily aspirin, 81 mg, Oral, Daily clopidogrel, 75 mg, Oral, Daily gabapentin, 300 mg, Oral, BID heparin, 5,000 Units, SubCUTAneous, BID insulin glargine, 10 Units, SubCUTAneous, q24h insulin lispro, 0-6 Units, SubCUTAneous, TID WC levothyroxine, 100 mcg, Oral, qAM AC Lidocaine, 1 patch, Topical, Daily metoprolol tartrate, 12.5 mg, Oral, BID pantoprazole, 40 mg, Oral, qAM AC polyethylene glycol (PEG) 3350, 17 g, Oral, Daily rosuvastatin, 40 mg, Oral, Daily senna-docusate sodium, 2 tablet, Oral, Nightly simethicone, 80 mg, Oral, 4x daily sodium chloride 0.9%, 10 mL, IntraVENous, 2 times per day Review of Systems: All other ROS negative except those noted above. Physical Exam: Vitals: 01/29/24 0854 01/29/24 1000 01/29/24 1100 01/29/24 1145 BP: 109/66 Pulse: 91 87 Resp: 16 Temp: 36.7 C (98 F) TempSrc: Temporal SpO2: 97% 100% Weight: Height: Admission weight: 81.6 kg (180 lb) Wt Readings from Last 3 Encounters: 01/29/24 80 kg (176 lb 5.9 oz) I/O last 3 completed shifts: In: 1144 (14.3 mL/kg) [P.O.:350; I.V.:794 (9.9 mL/kg)] Out: 1800 (22.5 mL/kg) [Urine:1800 (0.6 mL/kg/hr)] Weight: 80 kg Net IO Since Admission: -3,481.18 mL [01/29/24 1152] General: A&O x 3, NAD HEENT: Sclera clear, EOMI, MMM, Nose/ears/hearing grossly normal Neck: Supple, trachea midline, no mass, no TM Heart: RRR, no rub/heave Lungs: Clear bilaterally, unlabored Abd: Soft, (+) BS, non-tender Ext: 1-2+ LE edema Neuro: No tremor/myoclonus Skin: warm and dry, no rash LABS: Recent Labs 01/27/24 0612 01/28/24 0004 01/29/24 0527 WBC 10.5 7.9 10.1 HGB 10.0* 8.1* 10.4* HCT 30.1* 24.5* 32.5* MCV 85.0 84.8 87.1 PLT 171 162 202 No results found for: IRON, TIBC, FERRITIN No results found for: [id number], FOLATE Recent Labs 01/28/24 0004 01/28/24 1102 01/29/24 0527 NA 129* 132* 136 K 3.2* 4.6 4.1 CL 92* 100 103 CO2 22 24 20* BUN 53* 54* 56* CREATININE 3.22* 3.09* 2.93* GLUCOSE 353* 243* 124* CALCIUM 7.5* 8.1* 8.6 ANIONGAP 16* 8 12 Lab Results Component Value Date CALCIUM 8.6 01/29/2024 CAION 4.10 (L) 01/25/2024 PHOS 4.9 (H) 01/25/2024 No components found for: [id number] Diagnostic Studies: CXR 01/24 FINDINGS: The patient is status post CABG with the usual sternal wires and surgical clips. The [place]-Zeynep catheter has been withdrawn. An introducer sheath remains in place in the right internal jugular vein. The heart is mildly enlarged. Mediastinal and bilateral chest tubes are in place. There is no pneumothorax. There is mild prominence of the central pulmonary vasculature. Impression: 1. Postoperative changes (CABG). 2. Chest tubes without pneumothorax. 3. Prominence of the central pulmonary vasculature consistent with mild congestive heart failure/fluid overload. Personally reviewed available data [labs, MARS, radiologic studies, and electronic records]. Parts of assessment/plan may have been copied from prior entry and amended as needed. It reflects full evaluation and pathophysiology of processes involved. Images from the original note were not included. PHYSICAL THERAPY [facility] Treatment Note Name/MRN: Jorge Salamanca ([id number]) Date of : 1945 Age: 78 y.o. Room/Bed: T1-105/T1-105 A Discharge Recommendation: IP Rehab Equipment Needed: (TBD at next level of care) Assessment Pt was able to tolerate more activity this date. Overall min assist for transfers, gait, bed mobility. Some cues for sternal precautions needed through out session. Recommend IP rehab at discharge. Subjective Pt up in chair. Agreeable to PT. BP upon arrival was displaying 74/55 from 8 am reading. Took again and reading was 109/66. Pain: Pt denies any current pain. Medical Precautions: No active isolations Proper PPE donned/doffed in accordance with facility standards. Fall Risk: Castro Fall Risk Score: 45 (High Risk) Precautions/Restrictions: Sternal Precautions: No lifting greater than 10 lbs. Ok for modified UE precautions using Keep Your Move in the Tube technique Lines/Drains/Airways: tele Overall Cognitive Status: WNL Overall Orientation Status: Oriented x4 Family/Caregiver Present: none Objective Bed Mobility Sit to supine: Mod Assist Scooting: Max Assist Bed flat, no rail Transfers/Mobility Sit to stand: Min Assist Stand to sit: Min Assist Stood from recliner 2x's, stood from toilet Device(s) used: Front wheeled walker Ambulation Ambulation 1 Assistive device(s) used: Front wheeled walker Assist level: Min Assist Distance (ft): 10 ft, 5 ft 8 ft, 40ft Quality of gait: B foot clearance, narrow KELSEY, slow aniyah, instability through all phases Balance During Session: Pt was able to wipe after having a BM but then needed further assist to complete. Pt stood at sink to wash hands, CGA for balance. Posture: fair Exercises Exercises Comments: Performed P&C exercises 1-9 x 10 reps each. Needed intermittent breaks during ex's due to fatigue. Increased time to complete. I.S. x 10 reps ~1000-1250mL. Plan Continue acute PT per plan of care. Safety/Education Safety Safety Devices in place: All fall risk precautions in place, call light within reach, left in bed, and no alarms engaged upon entry Restraints: No Education HEP, Transfers, Gait, Sternal precautions Outcome Measures AM-PAC AM-PAC Inpatient Mobility Raw Score (No Stairs) : 15 JH-HLM JH-HLM Score: Walked 25 ft or more (i.e. walked outside of room) Goals Patient Stated Goal: to get to rehab Encounter Problems Encounter Problems (Active) Cardiac Patient will perform bed mobility with independence in order to improve independence and prepare for out of bed mobility. (Progressing) Start: 01/24/24 Expected End: 02/21/24 Patient will complete sit to stand transfer with independence to none in order to improve safety and prepare for out of bed mobility. (Progressing) Start: 01/24/24 Expected End: 02/21/24 Patient will ambulate 300 feet or ambulate 5 minutes with independence with RPE of 14 or lower. (Progressing) Start: 01/24/24 Expected End: 02/21/24 Patient will ascend and descend 8 # stairs with independence rail for balance only. (Not Addressed) Start: 01/24/24 Expected End: 02/21/24 Patient will be independent with P&C exercises. (Progressing) Start: 01/24/24 Expected End: 02/21/24 Patient will be independent with managing secretions and home walking program. (Progressing) Start: 01/24/24 Expected End: 02/21/24 Pain - Adult Encounter Problems (Resolved) Pain - Adult Therapy Time Individual Co-treatment Time In 0810 Time Out 0850 Minutes 40 Timed Code Treatment Minutes: 40 Minutes (gait, TP, FA) Yomaira Sneed PTA [facility] [place] [facility]Electrophysiology Progress Note HPI / Interval History: Jorge Salamanca is an 78 y.o. male with past medical history significant for hypertension, hyperlipidemia, CKD stage IIIb, DM2, and overweight. He presented to the hospital with hx of KLINE, chest pressure radiating to arms not relieved by Tums ( recently ). His troponin peaked at 2.250, proBNP >1300. EKG SR with PAC, abnormal repolarization in lateral leads. His TTE show normal LVEF 75% with mild AVR. He underwent uncomplicated LHC with Dr. Arriaga which showed MVCAD. CTS c/s. He had CABG x [address] Johnson on 01/23/24. Today, reports feeling well. Denies CP, SOB, PND, orthopnea, palpitations, dizziness, syncope, bleeding, or edema. Ambulated in garcia 3 times today without complaint. Is hoping to go to [facility] upon discharge then will move in with his sister in [facility]. Assessment/Plan HF NYHA Class [x] I [] II [] III [] IV []Unable to assess NSTEMI s/p CABGx4 (In situ EPSTEIN-LAD, In situ SUHAS with reverse SVG extension to RI, RPDA, and RPL sequentially) on 01/23/[address] Tiburcio Gomez. Denies CP, SOB. On low dose amlodipine for BIMA (x 30 days post op). Continue DAPT with ASA/clopidogrel, metoprolol tartrate, amlodipine, rosuvastatin, and PPI. Recommend outpt cardiac rehab when okay with CTS. Post op AFib - Stable. Converted after started on amio. Remains in SR. On metoprolol tartrate for rate control and amio 400mg BID for rhythm control. CTS plans to taper amio at discharge. HTN - BP 90-130/50-60s. On amlodipine 2.5mg, metoprolol tartrate 12.5mg BID, and amio 400mg BID. HLD - LDL 127 on 01/18/24. Was started on rosuvastatin 40mg. Recommend repeat labs 10-12 weeks. LDL goal <70, ideally <55 per ESC guidelines. DM2 - Stable. Last HA1c 6%, well controlled. Per endo. CKD stage 3b - Improved. Today, creat 2.93. Baseline creat 1.9-2.0. Avoiding nephrotoxic meds. Blood loss anemia - Stable. Denies overt bleeding. Today, hgb 10.4. Dispo - Due to location to sister's home, pt prefers [facility] location for follow-up, scheduled with Marlene Vega on 03/05/24 at 9:00AM. Will d/w Dr. Arriaga Medications: acetaminophen, 1,000 mg, Oral, q8h amiodarone, 400 mg, Oral, BID amLODIPine, 2.5 mg, Oral, Daily aspirin, 81 mg, Oral, Daily clopidogrel, 75 mg, Oral, Daily gabapentin, 300 mg, Oral, BID heparin, 5,000 Units, SubCUTAneous, BID insulin glargine, 10 Units, SubCUTAneous, q24h insulin lispro, 0-6 Units, SubCUTAneous, TID WC levothyroxine, 100 mcg, Oral, qAM AC Lidocaine, 1 patch, Topical, Daily metoprolol tartrate, 12.5 mg, Oral, BID pantoprazole, 40 mg, Oral, qAM AC polyethylene glycol (PEG) 3350, 17 g, Oral, Daily rosuvastatin, 40 mg, Oral, Daily senna-docusate sodium, 2 tablet, Oral, Nightly simethicone, 80 mg, Oral, 4x daily sodium chloride 0.9%, 10 mL, IntraVENous, 2 times per day Infusion Medications: Physical Examination: Vitals: 01/29/24 0600 01/29/24 0745 01/29/24 0814 01/29/24 0816 BP: 95/56 109/66 Pulse: 70 101 101 Resp: 18 Temp: 36.4 C (97.6 F) TempSrc: Temporal SpO2: 96% 96% Weight: 176 lb 5.9 oz (80 kg) Height: Intake/Output Summary (Last 24 hours) at 01/29/2024 0845 Last data filed at 01/29/2024 0600 Gross per 24 hour Intake -- Output 900 ml Net -900 ml Wt Readings from Last 1 Encounters: 01/29/24 176 lb 5.9 oz (80 kg) Physical Exam Constitutional: Appearance: Normal appearance. Cardiovascular: Rate and Rhythm: Normal rate and regular rhythm. Pulses: Normal pulses. Heart sounds: Normal heart sounds. Comments: Midsternal incision Pulmonary: Breath sounds: Normal breath sounds. Abdominal: General: Bowel sounds are normal. Palpations: Abdomen is soft. Musculoskeletal: General: Normal range of motion. Skin: General: Skin is warm and dry. Neurological: Mental Status: He is alert and oriented to person, place, and time. Psychiatric: Mood and Affect: Mood normal. Behavior: Behavior normal. Laboratory Tests: Recent Labs 01/26/24 0859 01/27/24 0612 01/28/24 0004 01/28/24 1102 01/29/24 0527 NA 134* 137 129* 132* 136 K 3.7 3.6 3.2* 4.6 4.1 CL 101 101 92* 100 103 CO2 20* BUN 45* 53* 53* 54* 56* CREATININE 3.57* 3.62* 3.22* 3.09* 2.93* Recent Labs 01/27/24 0612 01/28/24 0004 01/29/24 0527 WBC 10.5 7.9 10.1 HGB 10.0* 8.1* 10.4* HCT 30.1* 24.5* 32.5* MCV 85.0 84.8 87.1 PLT 171 162 202 EF BP Date Value Ref Range Status 01/18/2024 74 55 - 100 % Final 01/17/24 TRANSTHORACIC ECHOCARDIOGRAM (TTE) COMPLETE (CONTRAST/BUBBLE/3D PRN) 01/18/2024 9:23 AM (Final) Interpretation Summary Left Ventricle: Left ventricle size is normal. Mildly increased wall thickness. Normal left ventricular systolic function. EF by 2D Simpsons Biplane is 74%. Normal wall motion. Diastolic dysfunction present with normal LVEF. Right Ventricle: Right ventricle size is normal. Normal systolic function. Aortic Valve: Mild (1+) regurgitation. Left Atrium: Left atrium is mildly dilated. Pulmonary Arteries: Pulmonary artery was not well visualized. Mild pulmonary hypertension present. No comparison record. Signed by: Rafita Fernandez MD on 01/18/2024 9:23 AM [facility] 01/18/24: Conclusion NSTEMI due to 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 LM with 70% distal stenosis LAD with ostial and proximal 85% stenosis, 80% mid segment stenosis and 50% distal stenosis Ramus intermedius with an 80% proximal stenosis and 70% mid to distal segment stenoiss Left circumflex with an 80% mid segment stenosis RCA with 99% distal segment stenosis at the bifurcation to the RPDA and RPLV. 90% stenosis of proximal RPL and 100% TURBINATED BONE GRINDER of ostial RPDA--distal vessel filling by [id number] collaterals. Normal LVEDP; no aortic stenosis. Recommendations Patient management should include: Aggressive risk factor modification, optimal medical management and cardiac rehabillitation. - Will transfer to [facility] for Heart Team consultation and consideration of coronary revascularization options--CABG vs. Protected PCI with Impella Cardiac Tests: ECG: None today Telemetry findings reviewed: SR 90s EF BP Date Value Ref Range Status 01/18/2024 74 55 - 100 % Final LINUS Walton CNP Date Of Service 01/29/2024 Department of Internal Medicine Division of Endocrinology, Diabetes, & Metabolism Endocrinology Note Patient Name: Jorge Salamanca : 1945 AGE: 78 y.o. Room/Bed: T1-105/T1-105 A Admission Date: 01/17/2024 Visit Date: 01/29/2024 Reason for Endocrine Consult: Post Op Glycemic Management Provider/Team Requesting Consult: Dr Solorzano PCP: ERIC NICOLAS DO Outpt Mat Machine Operator: No ASSESSMENT: DM2 without usp use of insulin Steroid induced hyperglycemia HTN HLD ALEXANDER on CKD stage III b Hypothyroidism New A Fib on amiodarone PLAN: Current sugars are significant for mild post meal hyperglycemia Anticipate improvement with dietary changes and since dextrose containing infusion has been stopped Continue Lantus 10 units q24 hours Continue humalog low dose scale with meals Continue home LT4 100mcg daily - recent TSH is 7.4 , acceptable for age. Will hold from making changes to current dose of levothyroxine. ICU goal <180 GMF goal <150 POCT BG ACHS Hypoglycemia management per protocol Carb controlled diet ANTICIPATED ENDOCRINE HOME GOING RECOMMENDATIONS: Optimized for Discharge from Endocrine standpoint: Yes Home Going Endocrine Rx Recommendations-- Continue current insulin regimen on dc to rehab Levothyroxine 100 mcg daily Outpt Follow Up-- PCP SUBJECTIVE/HPI: CHIEF COMPLAINT: Chief Complaint Patient presents with Chest Pain Jorge Salamanca is a 78 year old male patient with a PMHx that includes HTN, HLD, T2DM and CKD. He presented to ED with complaints of chest pain and SOB. Symptoms had been intermittent since 2 days prior. He had chest pain previously that resolved with TUMS. The chest pain returned the following night but then radiated to back, arms and jaw. Symptoms did not resolve with TUMS this time which prompted his visit to the ED. Workup revealed slightly inverted T waves on EKG. Initial troponin was 0.19. He was admitted for suspected NSTEMI and taken to the bolt labeler. Cath showed multivessel CAD and Cardiothoracic Surgery was consulted for surgical evaluation. Agreeable to surgery, taken to OR on 01/23/[address] Johnson. History of Type 2 Diabetes Age at Onset: Early 60s Circumstances surrounding dx: screening Previous hospitalizations for DM: Denies Home DM Medication Regimen: Untreated - since A1C had improved with diet and lifestyle changes and patient was able to lose close to 70 lbs in the last 10 years Previously Used DM Agents: Metformin Glimepiride Injection Sites/Rotation: NA Missed Medication Doses: NA Medication Side Effects: NA Medication Cost Concerns: NA Glucose Monitoring CGM use: No BG Monitoring: has home glucometer Recent Hypoglycemia: Denies Hypoglycemic Treatment Plan: NA Trend Review: Lab Results Component Value Date HGBA1C 6.0 (H) 01/18/2024 No results found for: TSH Glucose Date/Time Value Ref Range Status 01/29/2024 07:43 AM 134 (H) 70 - 100 mg/dL Final 01/28/2024 03:58 PM 235 (H) 70 - 100 mg/dL Final 01/28/2024 12:12 PM 200 (H) 70 - 100 mg/dL Final 01/28/2024 08:03 AM 152 (H) 70 - 100 mg/dL Final 01/27/2024 03:46 PM 155 (H) 70 - 100 mg/dL Final 01/27/2024 12:18 PM 206 (H) 70 - 100 mg/dL Final Complication History Retinopathy: Denies Neuropathy: Denies HTN: Endorses HLD: Endorses Renal: Endorses- CKD; follows w/ Nephrology Cardiac: Endorses-CAD s/p CABG x4 (01/23/24); NSTEMI CVA: Denies VENKATA: Denies Gastroparesis: Denies H/o Pancreatitis: Denies Impaired Wound Healing: Denies Amputation: Denies Metabolic Dysfunction Associated Steatotic Liver Disease: Denies Hypoglycemic Unawareness: Denies Hypothyroidism 01/29/2024 Was on amiodarone in dextrose last 2 days in view of A Fib. Now on oral amiodarone Patient seen at bedside Doing well overall , appetite has been fair No abdominal pain , nausea or vomiting at this time Also spoke with patients sister over the phone , she is an RN Discussed about continuing insulin regimen on discharge to rehab , patient agreeable with this Patient mentions that he maybe discharged to rehab today Review of Systems All other systems reviewed and are negative. OBJECTIVE: Vitals: 01/29/24 0400 01/29/24 0500 01/29/24 0600 01/29/24 0745 BP: 125/55 Pulse: 60 62 70 Resp: 18 Temp: 36.4 C (97.6 F) TempSrc: Temporal SpO2: 100% 98% Weight: 176 lb 5.9 oz (80 kg) Height: Physical Exam Vitals and nursing note reviewed. Constitutional: General: He is awake. Appearance: Normal appearance. HENT: Head: Normocephalic and atraumatic. Mouth/Throat: Mouth: Mucous membranes are moist. Cardiovascular: Rate and Rhythm: Normal rate and regular rhythm. Comments: Incision intact Pulmonary: Effort: Pulmonary effort is normal. Skin: General: Skin is dry. Neurological: General: No focal deficit present. Mental Status: He is alert and oriented to person, place, and time. Psychiatric: Mood and Affect: Mood normal. Behavior: Behavior normal. 24 hour intake/output: Intake/Output Summary (Last 24 hours) at 01/29/2024 0843 Last data filed at 01/29/2024 0600 Gross per 24 hour Intake -- Output 900 ml Net -900 ml Diet: Adult diet Regular; 5 carb choices (75 gm/meal) Medications (as per EMR): HomeMeds: Current Outpatient Medications Medication Instructions amLODIPine (NORVASC) 5 mg, Oral, Daily gabapentin (NEURONTIN) 600 mg, Oral, 2 times daily levothyroxine (SYNTHROID, LEVOXYL) 100 mcg, Oral, Daily before breakfast metoprolol succinate XL (TOPROL-XL) 100 mg, Oral, Daily omega-3 (FISH OIL) 1,000 mg, Oral, Daily Scheduled Meds:acetaminophen, 1,000 mg, Oral, q8h amiodarone, 400 mg, Oral, BID amLODIPine, 2.5 mg, Oral, Daily aspirin, 81 mg, Oral, Daily clopidogrel, 75 mg, Oral, Daily gabapentin, 300 mg, Oral, BID heparin, 5,000 Units, SubCUTAneous, BID insulin glargine, 10 Units, SubCUTAneous, q24h insulin lispro, 0-6 Units, SubCUTAneous, TID WC levothyroxine, 100 mcg, Oral, qAM AC Lidocaine, 1 patch, Topical, Daily metoprolol tartrate, 12.5 mg, Oral, BID pantoprazole, 40 mg, Oral, qAM AC polyethylene glycol (PEG) 3350, 17 g, Oral, Daily rosuvastatin, 40 mg, Oral, Daily senna-docusate sodium, 2 tablet, Oral, Nightly simethicone, 80 mg, Oral, 4x daily sodium chloride 0.9%, 10 mL, IntraVENous, 2 times per day Continuous Infusions: PRN Meds:PRN medications: calcium gluconate, dextrose, dextrose, glucagon (rDNA), glucose, ipratropium-albuterol, magnesium hydroxide, magnesium sulfate OR magnesium sulfate, melatonin, naloxone, oxyCODONE OR oxyCODONE, potassium chloride OR potassium chloride OR potassium chloride, potassium chloride CR, sodium chloride, sodium chloride 0.9% Diagnostic Workup: I reviewed pertinent Laboratory results, Radiographic results, and Other Clinical Notes at the time of today's encounter. Labs: No components found for: LABA1C No components found for: EAG Lab Results Component Value Date NA 136 01/29/2024 K 4.1 01/29/2024 CL 103 01/29/2024 CO2 20 (L) 01/29/2024 BUN 56 (H) 01/29/2024 CREATININE 2.93 (H) 01/29/2024 GLUCOSE 124 (H) 01/29/2024 CALCIUM 8.6 01/29/2024 Lab Results Component Value Date CHOL 180 01/18/2024 Lab Results Component Value Date TRIG 100 01/18/2024 Lab Results Component Value Date HDL 33 (L) 01/18/2024 Lab Results Component Value Date LDLCALC 127 (H) 01/18/2024 No results found for: VLDL Lab Results Component Value Date CHOLHDLRATIO 5 01/18/2024 No results found for: [id number] No results found for: TSH, Q2ZHVTM, X9HDDUF, THYROIDAB Radiology reportsas per the Radiologist Radiology: POCT ACT Result Date: 01/21/2024 Performed by: [facility], [address] [place] [address] CLIA ID: [id number] ECG 12 lead Sinus bradycardia Electronically Signed On 01-20-2024 18:31:49 EDT by Melina Bolaños Cardiac procedure Result Date: 01/18/2024 NSTEMI due to 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 LM with 70% distal stenosis LAD with ostial and proximal 85% stenosis, 80% mid segment stenosis and 50% distal stenosis Ramus intermedius with an 80% proximal stenosis and 70% mid to distal segment stenoiss Left circumflex with an 80% mid segment stenosis RCA with 99% distal segment stenosis at the bifurcation to the RPDA and RPLV. 90% stenosis of proximal RPL and 100% TURBINATED BONE GRINDER of ostial RPDA--distal vessel filling by [id number] collaterals. Normal LVEDP; no aortic stenosis. Transthoracic echocardiogram (TTE) complete with contrast, bubble, strain, and 3D PRN Result Date: 01/18/2024 Left Ventricle: Left ventricle size is normal. Mildly increased wall thickness. Normal left ventricular systolic function. EF by 2D Simpsons Biplane is 74%. Normal wall motion. Diastolic dysfunction present with normal LVEF. Right Ventricle: Right ventricle size is normal. Normal systolic function. Aortic Valve: Mild (1+) regurgitation. Left Atrium: Left atrium is mildly dilated. Pulmonary Arteries: Pulmonary artery was not well visualized. Mild pulmonary hypertension present. No comparison record. ECG 12 lead Sinus rhythm Atrial premature complexes Abnormal R-wave progression, early transition Repol abnrm suggests ischemia, lateral leads Electronically Signed On 01-18-2024 06:16:41 EDT by Jose Robledo XR chest 1 view Result Date: 01/17/2024 Patient Name: JORGE SALAMANCA : 1945 Exam Date/Time: 01/17/2024 23:47 Procedure: XR CHEST 1 VIEW Ordering Provider: ROBLEDO VISHNU Reason For Exam: acute chest pain CLINICAL INFORMATION: Chest pain. Portable view of the chest at 2340 hours is provided without comparison. FINDINGS: The cardiac silhouette and mediastinum are within normal limits. There are no focal infiltrates. However, tiny nodular densities are noted diffusely (miliary pattern). The visualized bones and soft tissues are grossly unremarkable. 1. No focal infiltrates. 2. Diffuse miliary pattern in the lung morrow. This is nonspecific but may indicate histoplasmosis among other entities. 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) Hyperlipemia Hypertension Past Surgical History: Past Surgical History: Procedure Laterality Date CARDIAC CATHETERIZATION Left 01/18/2024 CARDIAC CATHETERIZATION N/A 01/18/2024 Performed by Nicholas Arriaga MD at [facility] Cardiac Buffing And Polishing Wheel Repairer TONSILLECTOMY (HISTORICAL) Allergy(ies): Allergies Allergen Reactions Bee Venom Family History: Family History Problem Relation Name Age of Onset No Known Problems Brother No Known Problems Brother Bipolar disorder Sister Arthritis Sister Lung cancer Father Alzheimer's disease Mother Cancer Father Social History: Social History Tobacco Use Smoking status: Never Passive exposure: Current Smokeless tobacco: Never Tobacco comments: Quit smoking: smokes 3.5 packs daily Substance Use Topics Alcohol use: Not Currently Drug use: Never Portions of the information within this encounter were entered using an electronic dictation system. Best attempts were made to edit/proofread the information prior to note completion. Despite the review of information, some errors may remain. If there are questions related to the information contained within the note please contact the signing physician directly. I spent 35 minutes with the pt which involved coordination of care, medical evaluation, review of records, and/or counseling of the pt regarding his/her condition/disease state/prognosis on the date of this note. Images from the original note were not included. Cardiothoracic Surgery/[facility] Progress Note PATIENT NAME: Jorge Salamanca DATE: 01/29/24 HPI: 78 year old male patient with a PMHx that includes HTN, HLD, T2DM and CKD. He presented to ED with complaints of chest pain and SOB. Symptoms had been intermittent since 2 days prior. He had chest pain previously that resolved with TUMS. The chest pain returned the following night but then radiated to back, arms and jaw. Symptoms did not resolve with TUMS this time which prompted his visit to the ED. Workup revealed slightly inverted T waves on EKG. Initial troponin was 0.19. He was admitted for suspected NSTEMI and taken to the bolt labeler. Cath showed multivessel CAD and Cardiothoracic Surgery was consulted for surgical evaluation. Agreeable to surgery, taken to OR on 01/23/[address] Johnson. Surgery/Procedure: 01/23/24: Dr. Johnson- CABG x4, BIMA's, LEVH, sternal plating, TE Interval History: 01/29/24, POD#6- VSS overnight, NSR on tele, on RA. Resting in chair comfortably. Cr now down-trending at 2.93. He continues to improve from a PT standpoint, hopeful to get stronger at rehab. Review of Systems Constitutional: Negative for diaphoresis, fatigue and fever. Respiratory: Negative for cough, shortness of breath and wheezing. Cardiovascular: Negative for chest pain, palpitations and leg swelling. Gastrointestinal: Negative for abdominal distention, abdominal pain, nausea and vomiting. Skin: Negative for color change, pallor and rash. Objective: UO cc/24hrs: 1100 mL Last BM Date: 01/27/24 Vitals: BP: 125/55, MAP (mmHg): 74, BP Method: Automatic Heart Rate: 70 Resp: 20 Temp: 36.7 C (98 F), Temp Source: Temporal BMI (Calculated): 28.48 CXR: BMP: Recent Labs 01/28/24 0004 01/28/24 1102 01/29/24 0527 NA 129* 132* 136 K 3.2* 4.6 4.1 CL 92* 100 103 CO2 22 24 20* BUN 53* 54* 56* CREATININE 3.22* 3.09* 2.93* CALCIUM 7.5* 8.1* 8.6 CBC: Recent Labs 01/27/24 0612 01/28/24 0004 01/29/24 0527 WBC 10.5 7.9 10.1 HGB 10.0* 8.1* 10.4* HCT 30.1* 24.5* 32.5* PLT 171 162 202 MCV 85.0 84.8 87.1 RDW 14.0 13.8 14.0 INR: No results for input(s): INR in the last 72 hours. Physical Exam Cardiovascular: Rate and Rhythm: Normal rate and regular rhythm. Heart sounds: Normal heart sounds. No murmur heard. No friction rub. Pulmonary: Effort: Pulmonary effort is normal. Breath sounds: No decreased breath sounds, wheezing or rhonchi. Abdominal: General: Bowel sounds are normal. There is no distension. Palpations: Abdomen is soft. Tenderness: There is no abdominal tenderness. Skin: General: Skin is warm and dry. Capillary Refill: Capillary refill takes less than 2 seconds. Findings: Bruising and ecchymosis present. Comments: Surgical Incisions: well approximate; clean dry with no drainage noted. Surrounding skin no redness, warmth, or signs of infection noted. Neurological: Mental Status: He is alert. Psychiatric: Behavior: Behavior is cooperative. 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 HTN HLD Post operative Pulm Management: Normal Post-operative Course Post-operative Atrial Fibrillation: [x]Yes [] No Acute blood loss anemia/consumptive thrombocytopenia Plan: Patient status: tele Medications: ASA/Statin BB- Metoprolol 12.5mg BID Start low dose CCB for BIMAs- continue x30 days postop Plavix for NSTEMI PO Amio- can taper at discharge Continue home meds: Levothyroxine, Gabapentin GI prophy: PO protonix DVT prophy:TEDs, SCDs, and Heparin SubQ Interventions Pulmonary hygiene: IS and Acapella Consults Endocrine following for Insulin management Cardiology following Nephrology following - Holding diuresis - Limit antihypertensives PT/OT: IPR TCC/Discharge Planning Ready for D/C- IPR auth Central Line: []Yes [x] No Arterial Line: []Yes [x] No Ott: []Yes [x] No Restraints: []Yes [x] No Patient discussed and plan of day developed from multidisciplinary rounds between Cardiothoracic Surgery (Cardiothoracic Surgeon, HORTENCIA) and Critical Care Attending Cardiac Core Medications: ASA, Plavix, Statin, and BB EF: 74% 01/18/24 Blood Conservation: None noted in post-operative period Art Display Maker: Dr. Arriaga (cath) Images from the original note were not included. Nephrology Progress Note Patient: Jorge Salamanca Room number: T1-105/T1-105 A Date of Admit: 01/17/2024 LOS: 10 days Admitting physician: Loretta Johnson DO Referring physician: Loretta Johnson DO Outpatient Silk Trimmer: Dr. Light/[facility] Assessment/Plan: 78 y.o. male with a past medical history of CKD, DM, HTN, DLD who was admitted on 01/17/2024 with chest pain, found to have NSTEMI with multivessel CAD on [facility]. Consulted for pre-op risk stratification. S/p CABG 01/22. Now with ALEXANDER. #Nonoliguric ALEXANDER on CKD3b -Cr is downtrending and at 3.09 today. Suspect also with ischemic ATN. Ott in place with good UOP, had responded to lasix challenge. Lytes/Acid-base: serum Na corrected for hyperglycemia at 134, bicarb 24 Ca/Phos: Ca 8.1, last Phos 4.9 HTN/Volume status: Bps soft. Was with some LE edema on exam. Remains on RA, CXR today 01/28/24 remains improved. Anemia: Hgb 8.1 #NSTEMI s/p CABG 01/22 #Hyponatremia #DM #HTN #Afib with RVR Recommendations: -Will continue to hold diuresis today -Trend renal function daily -Limit antihypertensives as able (amlodipine has been discontinued) Thank you for this consult, we will continue to follow. Please call or page if any questions [facility] Pager: [phone] Office: [phone]. Office Subjective: Patient was seen and examined as he was ambulating with physical therapy earlier today. He denies concerns for worsening dyspnea or worsening peripheral edema this morning. He is agreeable to again holding diuresis today. 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 acetaminophen, 1,000 mg, Oral, q8h amiodarone, 400 mg, Oral, BID aspirin, 81 mg, Oral, Daily clopidogrel, 75 mg, Oral, Daily gabapentin, 300 mg, Oral, BID heparin, 5,000 Units, SubCUTAneous, BID insulin glargine, 10 Units, SubCUTAneous, q24h insulin lispro, 0-6 Units, SubCUTAneous, TID WC levothyroxine, 100 mcg, Oral, qAM AC Lidocaine, 1 patch, Topical, Daily metoprolol tartrate, 12.5 mg, Oral, BID pantoprazole, 40 mg, Oral, qAM AC polyethylene glycol (PEG) 3350, 17 g, Oral, Daily rosuvastatin, 40 mg, Oral, Daily [Held by provider] senna-docusate sodium, 2 tablet, Oral, Nightly simethicone, 80 mg, Oral, 4x daily sodium chloride 0.9%, 10 mL, IntraVENous, 2 times per day Review of Systems: All other ROS negative except those noted above. Physical Exam: Vitals: 01/28/24 0500 01/28/24 0600 01/28/24 0700 01/28/24 0808 BP: BP Location: Patient Position: Pulse: 60 62 67 Resp: 20 Temp: 37 C (98.6 F) TempSrc: SpO2: 98% 98% 96% Weight: 80 kg (176 lb 5.9 oz) Height: Admission weight: 81.6 kg (180 lb) Wt Readings from Last 3 Encounters: 01/28/24 80 kg (176 lb 5.9 oz) I/O last 3 completed shifts: In: 1144 (14.3 mL/kg) [P.O.:350; I.V.:794 (9.9 mL/kg)] Out: 2195 (27.4 mL/kg) [Urine:1775 (0.6 mL/kg/hr); Chest Tube:420] Weight: 80 kg Net IO Since Admission: -2,821.18 mL [01/28/24 1159] General: A&O x 3, NAD HEENT: Sclera clear, EOMI, MMM, Nose/ears/hearing grossly normal Neck: Supple, trachea midline, no mass, no TM Heart: RRR, no rub/heave Lungs: Clear bilaterally, unlabored Abd: Soft, (+) BS, non-tender Ext: 1-2+ LE edema Neuro: No tremor/myoclonus Skin: warm and dry, no rash LABS: Recent Labs 01/26/24 0452 01/27/24 0612 01/28/24 0004 WBC 12.0* 10.5 7.9 HGB 9.3* 10.0* 8.1* HCT 28.6* 30.1* 24.5* MCV 86.4 85.0 84.8 PLT 111* 171 162 No results found for: IRON, TIBC, FERRITIN No results found for: [id number], FOLATE Recent Labs 01/27/24 0612 01/28/24 0004 01/28/24 1102 NA 137 129* 132* K 3.6 3.2* 4.6 CL 101 92* 100 CO2 23 22 24 BUN 53* 53* 54* CREATININE 3.62* 3.22* 3.09* GLUCOSE 161* 353* 243* CALCIUM 8.6 7.5* 8.1* ANIONGAP 13 16* 8 Lab Results Component Value Date CALCIUM 8.1 (L) 01/28/2024 CAION 4.10 (L) 01/25/2024 PHOS 4.9 (H) 01/25/2024 No components found for: [id number] Diagnostic Studies: CXR 01/24 FINDINGS: The patient is status post CABG with the usual sternal wires and surgical clips. The [place]-Zeynep catheter has been withdrawn. An introducer sheath remains in place in the right internal jugular vein. The heart is mildly enlarged. Mediastinal and bilateral chest tubes are in place. There is no pneumothorax. There is mild prominence of the central pulmonary vasculature. Impression: 1. Postoperative changes (CABG). 2. Chest tubes without pneumothorax. 3. Prominence of the central pulmonary vasculature consistent with mild congestive heart failure/fluid overload. Personally reviewed available data [labs, MARS, radiologic studies, and electronic records]. Parts of assessment/plan may have been copied from prior entry and amended as needed. It reflects full evaluation and pathophysiology of processes involved. Images from the original note were not included. PHYSICAL THERAPY [facility] Treatment Note Name/MRN: Jorge Salamanca ([id number]) Date of : 1945 Age: 78 y.o. Room/Bed: T1-105/T1-105 A Discharge Recommendation: IP Rehab Equipment Needed: (TBD) Prior Level of Function ADL Assistance: Independent Ambulation Assistance: Independent Transfer Assistance: Independent Assessment Pt was able to increase gait distance with much encouragement from this SOCIAL SCIENCES PROFESSOR. Overall min assist for gait and transfers. Recommend IP rehab at discharge. Subjective Pt slouched down in recliner chair, says his bottom hurts but does not like waffle cushion underneath him. Agreeable to PT but states dont make me go too far Pain: only c/o soreness of bottom, does not rate it on a pain scale. Medical Precautions: No active isolations Proper PPE donned/doffed in accordance with facility standards. Fall Risk: Castro Fall Risk Score: 60 (High Risk) Precautions/Restrictions: Sternal Precautions: No lifting greater than 10 lbs. Ok for modified UE precautions using Keep Your Move in the Tube technique Lines/Drains/Airways: tele Overall Cognitive Status: WNL Overall Orientation Status: Oriented x4 Family/Caregiver Present: spouse and son arrived end of session Objective Transfers/Mobility Sit to stand: Mod Assist Stand to sit: Mod Assist Cues for sternal precautions Device(s) used: Front wheeled walker Ambulation Ambulation 1 Assistive device(s) used: Front wheeled walker Assist level: Min Assist Distance (ft): 40 ft x 2 Quality of gait: slow aniyah, flexed posture, narrow KELSEY Balance During Session: Static stand with FWW, min assist. Posture: fair I.S. x 5 reps to ~1000mL, needs a break between each breath for improved quality of inspiration. Moderate cough with some production of phlegm. Plan Continue acute PT per plan of care. Safety/Education Safety Safety Devices in place: All fall risk precautions in place, call light within reach, left in chair, and no alarms engaged upon entry Restraints: No Education Transfers, Gait, Balance Outcome Measures AM-PAC AM-PAC Inpatient Mobility Raw Score (No Stairs) : 15 JH-HLM JH-HLM Score: Walked 25 ft or more (i.e. walked outside of room) Goals Patient Stated Goal: to live 9-10 more years Encounter Problems Encounter Problems (Active) Cardiac Patient will perform bed mobility with independence in order to improve independence and prepare for out of bed mobility. (Not Addressed) Start: 01/24/24 Expected End: 02/21/24 Patient will complete sit to stand transfer with independence to none in order to improve safety and prepare for out of bed mobility. (Progressing) Start: 01/24/24 Expected End: 02/21/24 Patient will ambulate 300 feet or ambulate 5 minutes with independence with RPE of 14 or lower. (Progressing) Start: 01/24/24 Expected End: 02/21/24 Patient will ascend and descend 8 # stairs with independence rail for balance only. (Not Addressed) Start: 01/24/24 Expected End: 02/21/24 Patient will be independent with P&C exercises. (Not Addressed) Start: 01/24/24 Expected End: 02/21/24 Patient will be independent with managing secretions and home walking program. (Not Addressed) Start: 01/24/24 Expected End: 02/21/24 Pain - Adult Encounter Problems (Resolved) Pain - Adult Therapy Time Individual Co-treatment Time In 1118 Time Out 1136 Minutes 18 Timed Code Treatment Minutes: 18 Minutes (gait) Yomaira Sneed PTA Images from the original note were not included. Cardiothoracic Surgery/[facility] Progress Note PATIENT NAME: Jorge Salamanca DATE: 01/28/24 HPI: 78 year old male patient with a PMHx that includes HTN, HLD, T2DM and CKD. He presented to ED with complaints of chest pain and SOB. Symptoms had been intermittent since 2 days prior. He had chest pain previously that resolved with TUMS. The chest pain returned the following night but then radiated to back, arms and jaw. Symptoms did not resolve with TUMS this time which prompted his visit to the ED. Workup revealed slightly inverted T waves on EKG. Initial troponin was 0.19. He was admitted for suspected NSTEMI and taken to the bolt labeler. Cath showed multivessel CAD and Cardiothoracic Surgery was consulted for surgical evaluation. Agreeable to surgery, taken to OR on 01/23/[address] Johnson. Surgery/Procedure: 01/23/24: Dr. Johnson- CABG x4, BIMA's, LEVH, sternal plating, TE Interval History: 01/28/24, POD# 5: Now NSR on tele- transitioned off amio gtt to PO. Other VSS, afebrile, on RA. Drop in Na and high glucose on am BMP- will redraw lab. Discussed PT recs for IPR- he is agreeable to rehab. Review of Systems Constitutional: Positive for fatigue. Negative for diaphoresis and fever. Respiratory: Positive for shortness of breath. Negative for cough and wheezing. Cardiovascular: Negative for chest pain, palpitations and leg swelling. Gastrointestinal: Negative for abdominal distention, abdominal pain, nausea and vomiting. Skin: Negative for color change, pallor and rash. Objective: UO cc/24hrs: 700 mL Last BM Date: 01/27/24 Vitals: BP: (!) 101/49, MAP (mmHg): 65, BP Method: Automatic Heart Rate: 67 Resp: 20 Temp: 37 C (98.6 F), Temp Source: Temporal BMI (Calculated): 28.48 CXR: BMP: Recent Labs 01/26/24 0859 01/27/24 0612 01/28/24 0004 NA 134* 137 129* K 3.7 3.6 3.2* CL 101 101 92* CO2 24 23 22 BUN 45* 53* 53* CREATININE 3.57* 3.62* 3.22* CALCIUM 8.5 8.6 7.5* CBC: Recent Labs 01/26/24 0452 01/27/24 0612 01/28/24 0004 WBC 12.0* 10.5 7.9 HGB 9.3* 10.0* 8.1* HCT 28.6* 30.1* 24.5* PLT 111* 171 162 MCV 86.4 85.0 84.8 RDW 14.0 14.0 13.8 INR: No results for input(s): INR in the last 72 hours. Physical Exam Cardiovascular: Rate and Rhythm: Normal rate and regular rhythm. Heart sounds: Normal heart sounds. No murmur heard. No friction rub. Pulmonary: Effort: Pulmonary effort is normal. Breath sounds: Decreased breath sounds present. No wheezing or rhonchi. Abdominal: General: Bowel sounds are normal. There is no distension. Palpations: Abdomen is soft. Tenderness: There is no abdominal tenderness. Skin: General: Skin is warm and dry. Capillary Refill: Capillary refill takes less than 2 seconds. Findings: Bruising and ecchymosis present. Comments: Surgical Incisions: well approximate; clean dry with no drainage noted. Surrounding skin no redness, warmth, or signs of infection noted. Neurological: Mental Status: He is alert. Psychiatric: Behavior: Behavior is cooperative. 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 HTN HLD Post operative Pulm Management: Normal Post-operative Course Post-operative Atrial Fibrillation: [x]Yes [] No Acute blood loss anemia/consumptive thrombocytopenia Plan: Patient status: tele Medications: ASA/Statin BB- Metoprolol 12.5mg BID Start Plavix for NSTEMI Transition to PO amio- taper at discharge Continue home meds: Levothyroxine, Gabapentin GI prophy: PO protonix DVT prophy:TEDs, SCDs, and Heparin SubQ Interventions D/C IJ Pulmonary hygiene: IS and Acapella Consults Endocrine following for Insulin management Cardiology following Nephrology following - Holding diuresis - Limit antihypertensives PT/OT: IPR TCC/Discharge Planning IPR- will submit auth tomorrow Central Line: [x]Yes [] No Arterial Line: []Yes [x] No Ott: []Yes [x] No Restraints: []Yes [x] No Patient discussed and plan of day developed from multidisciplinary rounds between Cardiothoracic Surgery (Cardiothoracic Surgeon, HORTENCIA) and Critical Care Attending Cardiac Core Medications: ASA, Plavix, Statin, and BB EF: 74% 01/18/24 Blood Conservation: None noted in post-operative period Art Display Maker: Dr. Arriaga (cath) Associated attestation - Amish Kelly MD - 01/28/2024 5:26 PM EDT I have personally performed a [id number] diagnostic evaluation on this patient on date of service 01/28/24. History, labs, imaging studies, and electronic medical record have been reviewed by me. This note documented by the []warehouse technician [x]HORTENCIA reflects my history, exam, and medical decision making. I have reviewed and agree with the care plan. Changes were made in the orders as necessary. ROS documentation was reviewed and negative unless otherwise stated in HPI. Additional pertinent interval history, ROS, and physical exam findings: Unlabored. Up in chair. CXR with chronic innumerable calcified nodules - benign from prior infection. Family at bedside, updated. Images from the original note were not included. Nephrology Progress Note Patient: Jorge Salamanca Room number: T1-105/T1-105 A Date of Admit: 01/17/2024 LOS: 9 days Admitting physician: Loretta Johnson DO Referring physician: Loretta Johnson DO Outpatient Silk Trimmer: Dr. Light/[facility] Assessment/Plan: 78 y.o. male with a past medical history of CKD, DM, HTN, DLD who was admitted on 01/17/2024 with chest pain, found to have NSTEMI with multivessel CAD on [facility]. Consulted for pre-op risk stratification. S/p CABG 01/22. Now with ALEXANDER. #Nonoliguric ALEXANDER on CKD3b -Cr slowly uptrending with diuresis to 3.62 today. Suspect also with ischemic ATN. Ott in place with good UOP, responded to lasix challenge. Lytes/Acid-base: Lytes within normal limits (serum Na corrected for hyperglycemia at 138), bicarb 23 Ca/Phos: Ca 8.6, last Phos 4.9 HTN/Volume status: Bps soft. Some LE edema on exam. Now on RA, CXR today 01/27/24 remains improved. Anemia: Hgb 10.0 #NSTEMI s/p CABG 01/22 #Hyponatremia #DM #HTN #Afib with RVR Recommendations: -Will hold diuresis today -Trend renal function daily -Limit antihypertensives as able (amlodipine has been discontinued) Thank you for this consult, we will continue to follow. Please call or page if any questions [facility] Pager: [phone] Office: [phone]. Office Subjective: Patient was seen and examined, and family was visiting at the bedside on evaluation today. He had endorsed dyspnea this morning and was noted with concern for AFib with RVR. On evaluation he notes that the dyspnea has since improved. He admits to discomfort from gas and has been receiving simethicone with symptomatic relief. 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 acetaminophen, 1,000 mg, Oral, q8h aspirin, 81 mg, Oral, Daily gabapentin, 300 mg, Oral, BID heparin, 5,000 Units, SubCUTAneous, BID insulin glargine, 10 Units, SubCUTAneous, q24h insulin lispro, 0-6 Units, SubCUTAneous, TID WC levothyroxine, 100 mcg, Oral, qAM AC Lidocaine, 1 patch, Topical, Daily metoclopramide, 5 mg, IntraVENous, q6h metoprolol tartrate, 12.5 mg, Oral, BID pantoprazole, 40 mg, Oral, qAM AC polyethylene glycol (PEG) 3350, 17 g, Oral, Daily rosuvastatin, 40 mg, Oral, Daily senna-docusate sodium, 2 tablet, Oral, Nightly simethicone, 80 mg, Oral, 4x daily sodium chloride 0.9%, 10 mL, IntraVENous, 2 times per day sodium chloride 0.9%, 5-40 mL, IntraCATHeter, q8h amiodarone, 1 mg/min, Last Rate: 1 mg/min (01/27/24 1223) Review of Systems: All other ROS negative except those noted above. Physical Exam: Vitals: 01/27/24 0600 01/27/24 0700 01/27/24 0900 01/27/24 1000 BP: (!) 86/58 117/69 110/85 BP Location: Patient Position: Pulse: 103 110 76 Resp: Temp: TempSrc: SpO2: 93% 93% 92% Weight: 80.7 kg (177 lb 14.4 oz) Height: Admission weight: 81.6 kg (180 lb) Wt Readings from Last 3 Encounters: 01/27/24 80.7 kg (177 lb 14.4 oz) I/O last 3 completed shifts: In: 250 (3.1 mL/kg) [P.O.:250] Out: 3810 (47.2 mL/kg) [Urine:3325 (1.1 mL/kg/hr); Chest Tube:485] Weight: 80.7 kg Net IO Since Admission: -3,065.18 mL [01/27/24 1325] General: A&O x 3, NAD HEENT: Sclera clear, EOMI, MMM, Nose/ears/hearing grossly normal Neck: Supple, trachea midline, no mass, no TM Heart: RRR, no rub/heave Lungs: Clear bilaterally, unlabored Abd: Soft, (+) BS, non-tender Ext: 1-2+ LE edema Neuro: No tremor/myoclonus Skin: warm and dry, no rash LABS: Recent Labs 01/25/24 0035 01/26/24 0452 01/27/24 0612 WBC 10.0 12.0* 10.5 HGB 8.2* 9.3* 10.0* HCT 26.2* 28.6* 30.1* MCV 91.0 86.4 85.0 PLT 86* 111* 171 No results found for: IRON, TIBC, FERRITIN No results found for: [id number], FOLATE Recent Labs 01/25/24 0035 01/25/24 0557 01/25/24 0929 01/25/24 1523 01/26/24 0452 01/26/24 0859 01/27/24 0612 NA 135 < > 136 < > 136 134* 137 K 4.6 < > 4.1 < > 3.6 3.7 3.6 CL 105 < > 105 < > 101 101 101 CO2 17* < > 15* < > 20* 24 23 BUN 28* < > 30* < > 43* 45* 53* CREATININE 2.90* < > 3.18* < > 3.53* 3.57* 3.62* GLUCOSE 166* < > 164* < > 155* 165* 161* CALCIUM 8.1* < > 8.7 < > 8.7 8.5 8.6 MG 2.4* -- 2.3 -- -- -- -- PHOS 5.0* -- 4.9* -- -- -- -- ANIONGAP 12 < > 16* < > 14* 9 13 < > = values in this interval not displayed. Lab Results Component Value Date CALCIUM 8.6 01/27/2024 CAION 4.10 (L) 01/25/2024 PHOS 4.9 (H) 01/25/2024 No components found for: [id number] Diagnostic Studies: CXR 01/24 FINDINGS: The patient is status post CABG with the usual sternal wires and surgical clips. The [place]-Zeynep catheter has been withdrawn. An introducer sheath remains in place in the right internal jugular vein. The heart is mildly enlarged. Mediastinal and bilateral chest tubes are in place. There is no pneumothorax. There is mild prominence of the central pulmonary vasculature. Impression: 1. Postoperative changes (CABG). 2. Chest tubes without pneumothorax. 3. Prominence of the central pulmonary vasculature consistent with mild congestive heart failure/fluid overload. Personally reviewed available data [labs, MARS, radiologic studies, and electronic records]. Parts of assessment/plan may have been copied from prior entry and amended as needed. It reflects full evaluation and pathophysiology of processes involved. Chest tubes assessed: no air leak, subcutaneous air noted. Chest tubes removed without difficulty and dressing applied. Patient tolerated well. Patient and nurse educated on possible complications to observe for. Will continue to monitor. Epicardial pacing wire cut without difficulty per protocol. Patient and nurse educated on possible complications. Patient tolerated well. Will continue to monitor. Images from the original note were not included. PHYSICAL THERAPY [facility] Treatment Note Name/MRN: Jorge Salamanca ([id number]) Date of : 1945 Age: 78 y.o. Room/Bed: T1-105/T1-105 A Discharge Recommendation: IP Rehab Equipment Needed: (TBD) Prior Level of Function ADL Assistance: Independent Ambulation Assistance: Independent Transfer Assistance: Independent Assessment Pt presents with the listed deficits and decreased functional mobility. Initially attempted to see pt, who was SOB and he deferred until later time. Co-tx with OT d/t increased linea dn tube management, SOBOE and RN reporting pt with difficulty breathing and remaining stable with ambulation. Transfers demo'd Kiran of 2. Ambulation demo'd with use of Rollator at Kiran of 2 skilled therapists. Pt limited by SOB. Cues for pursed lip breathing throughout with pt unable to properly perform. Reviewed Sternal Precautions and Move in the Tube. Pt verbalized and demo'd understanding throughout. Min cues required for use of Sternal Pillow. Increased time required to complete tasks. PT goals not met. Pt would benefit from continued skilled PT. Recommend IP Rehab at discharge. Subjective Pt sitting up in chair. Max encouragement to participate in therapy. Rn cleared for PT. Reports pt is SOB and having difficulty with mobility and breathing this date. Pain: Pt denies any current pain. Medical Precautions: No active isolations Proper PPE donned/doffed in accordance with facility standards. Fall Risk: Castro Fall Risk Score: 60 (High Risk) Precautions/Restrictions: Sternal Precautions: No lifting greater than 10 lbs. Ok for modified UE precautions using Keep Your Move in the Tube technique Lines/Drains/Airways: PIV, chest tube x 2, central line Overall Cognitive Status: WFL Overall Orientation Status: Oriented x4 Family/Caregiver Present: none Objective Transfers/Mobility Sit to stand: Min Assist, x2 Person Assist Stand to sit: Min Assist, x2 Person Assist X 2 from chair. Cues for proper hand and foot placement. Cues for use of sternal pillow. Cues not to reach for safety awareness and to maintain eccentric control when returning to seated surface. Cues for upright posture. Cues for pursed lip breathing with no carryover noted. No overt LOB. General unsteadiness noted. Denies dizziness. Assist with stability and line and tube management. Device(s) used: Rollator Ambulation Ambulation 1 Assistive device(s) used: Rollator Assist level: Min Assist, x2 Person Assist Distance (ft): 25ft Quality of gait: antalgic, reciprocal stepping, B foot clearance, shuffling, uneven step length, narrow KELSEY, slow aniyah, postural sway, path deviations, instability through all phases Cues for upright posture and head up. Pt able to maintain KELSEY within Rollator. Cues to to maintain close proximity to Rollator. Cues for continuous reciprocal gait with increased step height and length to normalize gait pattern. Limited carryover noted. Cues for safety when turning with use of Rollator. Cues for pursed lip breathing with no carryover noted. Pt states he cannot breath that way. Denies dizziness and increase in pain. No overt LOB. General instability/unsteadiness. Required 2 skilled therapists for balance and stability as well as line and tube management. Balance During Session: Posture: fair Sitting - Static: Supervision Sitting - Dynamic: SBA Standing - Static: Min Assist, x2 Person Assist Standing - Dynamic: Min Assist, x2 Person Assist Plan Continue acute PT per plan of care. Safety/Education Safety Safety Devices in place: All fall risk precautions in place, call light within reach, left in chair, gait belt, patient at risk for falls, nurse notified, and no alarms engaged upon entry Restraints: No Education Education Given To: patient Education Provided: PT Role, PT Goals, Gait Training, Plan of Care, Precautions, Transfer Training, Energy Conservation, Equipment, Fall Prevention Education, Discharge Recommendations, Benefits of Increasing Activity, and Breathing Techniques Education Method: Verbal, Demonstration, and Teach Back Barriers to Learning: None Education Outcome: Verbalized Understanding and Continued Education Needed Outcome Measures AM-PAC AM-PAC Inpatient Mobility Raw Score (No Stairs) : 15 JH-HLM -HLM Score: Walked 25 ft or more (i.e. walked outside of room) Goals Patient Stated Goal: to live 9-10 more years Encounter Problems Encounter Problems (Active) Cardiac Patient will perform bed mobility with independence in order to improve independence and prepare for out of bed mobility. (Not Addressed) Start: 01/24/24 Expected End: 02/21/24 Patient will complete sit to stand transfer with independence to none in order to improve safety and prepare for out of bed mobility. (Progressing) Start: 01/24/24 Expected End: 02/21/24 Patient will ambulate 300 feet or ambulate 5 minutes with independence with RPE of 14 or lower. (Progressing) Start: 01/24/24 Expected End: 02/21/24 Patient will ascend and descend 8 # stairs with independence rail for balance only. (Not Addressed) Start: 01/24/24 Expected End: 02/21/24 Patient will be independent with P&C exercises. (Not Addressed) Start: 01/24/24 Expected End: 02/21/24 Patient will be independent with managing secretions and home walking program. (Progressing) Start: 01/24/24 Expected End: 02/21/24 Pain - Adult Encounter Problems (Resolved) Pain - Adult Therapy Time Individual Co-treatment Time In 09 Time Out 0931 Minutes 10 Timed Code Treatment Minutes: 10 Minutes (GT) SOCIAL SCIENCES PROFESSOR wore PPE in compliance with hospital guidelines and regulation when treating this patient. Pratima Polanco, SOCIAL SCIENCES PROFESSOR Department of Internal Medicine Division of Endocrinology, Diabetes, & Metabolism Endocrinology Note Patient Name: Jorge Salamanca : 1945 AGE: 78 y.o. Room/Bed: T1-105/T1-105 A Admission Date: 01/17/2024 Visit Date: 01/27/2024 Reason for Endocrine Consult: Post Op Glycemic Management Provider/Team Requesting Consult: Dr Solorzano PCP: ERIC NICOLAS DO Outpt Mat Machine Operator: No ASSESSMENT: DM2 without oysterman use of insulin Steroid induced hyperglycemia HTN HLD ALEXANDER on CKD stage III b Hypothyroidism PLAN: Hyperglycemia this morning related to sugar check after patient ate a snack. No changes made to insulin regimen today Continue Lantus 10 units q24 hours Continue Humalog 0-6 tid SSI Continue home LT4 100mcg daily ICU goal <180 GMF goal <150 POCT BG ACHS Hypoglycemia management per protocol Carb controlled diet ANTICIPATED ENDOCRINE HOME GOING RECOMMENDATIONS: Optimized for Discharge from Endocrine standpoint: No Home Going Endocrine Rx Recommendations-- TBD; likely none Outpt Follow Up-- PCP SUBJECTIVE/HPI: CHIEF COMPLAINT: Chief Complaint Patient presents with Chest Pain Jorge Salamanca is a 78 year old male patient with a PMHx that includes HTN, HLD, T2DM and CKD. He presented to ED with complaints of chest pain and SOB. Symptoms had been intermittent since 2 days prior. He had chest pain previously that resolved with TUMS. The chest pain returned the following night but then radiated to back, arms and jaw. Symptoms did not resolve with TUMS this time which prompted his visit to the ED. Workup revealed slightly inverted T waves on EKG. Initial troponin was 0.19. He was admitted for suspected NSTEMI and taken to the bolt labeler. Cath showed multivessel CAD and Cardiothoracic Surgery was consulted for surgical evaluation. Agreeable to surgery, taken to OR on 01/23/[address] Johnson. History of Type 2 Diabetes Age at Onset: Early 60s Circumstances surrounding dx: screening Previous hospitalizations for DM: Denies Home DM Medication Regimen: Untreated - since A1C had improved with diet and lifestyle changes and patient was able to lose close to 70 lbs in the last 10 years Previously Used DM Agents: Metformin Glimepiride Injection Sites/Rotation: NA Missed Medication Doses: NA Medication Side Effects: NA Medication Cost Concerns: NA Glucose Monitoring CGM use: No BG Monitoring: has home glucometer Recent Hypoglycemia: Denies Hypoglycemic Treatment Plan: NA Trend Review: Lab Results Component Value Date HGBA1C 6.0 (H) 01/18/2024 No results found for: TSH Glucose Date/Time Value Ref Range Status 01/27/2024 08:33 AM 244 (H) 70 - 100 mg/dL Final 01/26/2024 04:25 PM 184 (H) 70 - 100 mg/dL Final 01/26/2024 09:07 AM 177 (H) 70 - 100 mg/dL Final 01/25/2024 09:58 PM 416 (H) 70 - 100 mg/dL Final 01/25/2024 05:59 PM 217 (H) 70 - 100 mg/dL Final 01/25/2024 01:39 PM 190 (H) 70 - 100 mg/dL Final Complication History Retinopathy: Denies Neuropathy: Denies HTN: Endorses HLD: Endorses Renal: Endorses- CKD; follows w/ Nephrology Cardiac: Endorses-CAD s/p CABG x4 (01/23/24); NSTEMI CVA: Denies VENKATA: Denies Gastroparesis: Denies H/o Pancreatitis: Denies Impaired Wound Healing: Denies Amputation: Denies Metabolic Dysfunction Associated Steatotic Liver Disease: Denies Hypoglycemic Unawareness: Denies Hypothyroidism 01/27/2024 Patient seen at bedside Endorses to feeling tired Has been tolerating diet without GI issues Appetite is good Mentions that POCT glucose this morning was checked after he ate apple sauce Review of Systems All other systems reviewed and are negative. OBJECTIVE: Vitals: 01/27/24 0300 01/27/24 0400 01/27/24 0600 01/27/24 0700 BP: 92/67 (!) 86/58 BP Location: Left arm Patient Position: Sitting Pulse: 92 96 103 Resp: 16 21 Temp: 36.4 C (97.6 F) TempSrc: Temporal SpO2: 94% 91% 93% Weight: 177 lb 14.4 oz (80.7 kg) Height: Physical Exam Vitals and nursing note reviewed. Constitutional: General: He is awake. Appearance: Normal appearance. HENT: Head: Normocephalic and atraumatic. Mouth/Throat: Mouth: Mucous membranes are moist. Cardiovascular: Rate and Rhythm: Normal rate and regular rhythm. Comments: Incision intact Pulmonary: Effort: Pulmonary effort is normal. Comments: Chest tube noted Abdominal: General: There is no distension. Skin: General: Skin is warm and dry. Neurological: General: No focal deficit present. Mental Status: He is alert and oriented to person, place, and time. Psychiatric: Mood and Affect: Mood normal. Behavior: Behavior normal. 24 hour intake/output: Intake/Output Summary (Last 24 hours) at 01/27/2024 0948 Last data filed at 01/27/2024 0300 Gross per 24 hour Intake -- Output 2195 ml Net -2195 ml Diet: Adult diet Regular; 5 carb choices (75 gm/meal) Medications (as per EMR): HomeMeds: Current Outpatient Medications Medication Instructions amLODIPine (NORVASC) 5 mg, Oral, Daily gabapentin (NEURONTIN) 600 mg, Oral, 2 times daily levothyroxine (SYNTHROID, LEVOXYL) 100 mcg, Oral, Daily before breakfast metoprolol succinate XL (TOPROL-XL) 100 mg, Oral, Daily omega-3 (FISH OIL) 1,000 mg, Oral, Daily Scheduled Meds:acetaminophen, 1,000 mg, Oral, q8h aspirin, 81 mg, Oral, Daily gabapentin, 300 mg, Oral, BID heparin, 5,000 Units, SubCUTAneous, BID insulin glargine, 10 Units, SubCUTAneous, q24h insulin lispro, 0-6 Units, SubCUTAneous, TID WC levothyroxine, 100 mcg, Oral, qAM AC Lidocaine, 1 patch, Topical, Daily metoclopramide, 5 mg, IntraVENous, q6h metoprolol tartrate, 12.5 mg, Oral, BID pantoprazole, 40 mg, Oral, qAM AC polyethylene glycol (PEG) 3350, 17 g, Oral, Daily rosuvastatin, 40 mg, Oral, Daily senna-docusate sodium, 2 tablet, Oral, Nightly simethicone, 80 mg, Oral, 4x daily sodium chloride 0.9%, 10 mL, IntraVENous, 2 times per day sodium chloride 0.9%, 5-40 mL, IntraCATHeter, q8h Continuous Infusions:amiodarone, 1 mg/min, Last Rate: 1 mg/min (01/27/24 0644) PRN Meds:PRN medications: calcium gluconate, dextrose, dextrose, glucagon (rDNA), glucose, ipratropium-albuterol, magnesium hydroxide, magnesium sulfate OR magnesium sulfate, naloxone, oxyCODONE OR oxyCODONE, potassium chloride OR potassium chloride OR potassium chloride, potassium chloride CR, sodium chloride, sodium chloride 0.9%, sodium chloride 0.9% Diagnostic Workup: I reviewed pertinent Laboratory results, Radiographic results, and Other Clinical Notes at the time of today's encounter. Labs: No components found for: LABA1C No components found for: EAG Lab Results Component Value Date NA 137 01/27/2024 K 3.6 01/27/2024 CL 101 01/27/2024 CO2 23 01/27/2024 BUN 53 (H) 01/27/2024 CREATININE 3.62 (H) 01/27/2024 GLUCOSE 161 (H) 01/27/2024 CALCIUM 8.6 01/27/2024 Lab Results Component Value Date CHOL 180 01/18/2024 Lab Results Component Value Date TRIG 100 01/18/2024 Lab Results Component Value Date HDL 33 (L) 01/18/2024 Lab Results Component Value Date LDLCALC 127 (H) 01/18/2024 No results found for: VLDL Lab Results Component Value Date CHOLHDLRATIO 5 01/18/2024 No results found for: [id number] No results found for: TSH, [id number], [id number], THYROIDAB Radiology reportsas per the Radiologist Radiology: POCT ACT Result Date: 01/21/2024 Performed by: Ezio Liu, [address] [place], [place] [address] [place] [address] CLIA ID: [id number] ECG 12 lead Sinus bradycardia Electronically Signed On 01-20-2024 18:31:49 EDT by Melina Bolaños Cardiac procedure Result Date: 01/18/2024 NSTEMI due to 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 LM with 70% distal stenosis LAD with ostial and proximal 85% stenosis, 80% mid segment stenosis and 50% distal stenosis Ramus intermedius with an 80% proximal stenosis and 70% mid to distal segment stenoiss Left circumflex with an 80% mid segment stenosis RCA with 99% distal segment stenosis at the bifurcation to the RPDA and RPLV. 90% stenosis of proximal RPL and 100% TURBINATED BONE GRINDER of ostial RPDA--distal vessel filling by afom-am-tmses collaterals. Normal LVEDP; no aortic stenosis. Transthoracic echocardiogram (TTE) complete with contrast, bubble, strain, and 3D PRN Result Date: 01/18/2024 Left Ventricle: Left ventricle size is normal. Mildly increased wall thickness. Normal left ventricular systolic function. EF by 2D Simpsons Biplane is 74%. Normal wall motion. Diastolic dysfunction present with normal LVEF. Right Ventricle: Right ventricle size is normal. Normal systolic function. Aortic Valve: Mild (1+) regurgitation. Left Atrium: Left atrium is mildly dilated. Pulmonary Arteries: Pulmonary artery was not well visualized. Mild pulmonary hypertension present. No comparison record. ECG 12 lead Sinus rhythm Atrial premature complexes Abnormal R-wave progression, early transition Repol abnrm suggests ischemia, lateral leads Electronically Signed On 01-18-2024 06:16:41 EDT by Jose Robledo XR chest 1 view Result Date: 01/17/2024 Patient Name: JORGE SALAMANCA : 1945 Exam Date/Time: 01/17/2024 23:47 Procedure: XR CHEST 1 VIEW Ordering Provider: ROBLEDO VISHNU Reason For Exam: acute chest pain CLINICAL INFORMATION: Chest pain. Portable view of the chest at 2340 hours is provided without comparison. FINDINGS: The cardiac silhouette and mediastinum are within normal limits. There are no focal infiltrates. However, tiny nodular densities are noted diffusely (miliary pattern). The visualized bones and soft tissues are grossly unremarkable. 1. No focal infiltrates. 2. Diffuse miliary pattern in the lung morrow. This is nonspecific but may indicate histoplasmosis among other entities. 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) Hyperlipemia Hypertension Past Surgical History: Past Surgical History: Procedure Laterality Date CARDIAC CATHETERIZATION Left 01/18/2024 CARDIAC CATHETERIZATION N/A 01/18/2024 Performed by Nicholas Arriaga MD at [facility] Cardiac Buffing And Polishing Wheel Repairer TONSILLECTOMY (HISTORICAL) Allergy(ies): Allergies Allergen Reactions Bee Venom Family History: Family History Problem Relation Name Age of Onset No Known Problems Brother No Known Problems Brother Bipolar disorder Sister Arthritis Sister Lung cancer Father Alzheimer's disease Mother Cancer Father Social History: Social History Tobacco Use Smoking status: Never Passive exposure: Current Smokeless tobacco: Never Tobacco comments: Quit smoking: smokes 3.5 packs daily Substance Use Topics Alcohol use: Not Currently Drug use: Never Portions of the information within this encounter were entered using an electronic dictation system. Best attempts were made to edit/proofread the information prior to note completion. Despite the review of information, some errors may remain. If there are questions related to the information contained within the note please contact the signing physician directly. I spent 25 minutes with the pt which involved coordination of care, medical evaluation, review of records, and/or counseling of the pt regarding his/her condition/disease state/prognosis on the date of this note. Images from the original note were not included. OCCUPATIONAL THERAPY [facility] Initial Evaluation Name/MRN: Jorge Salamanca ([id number]) Evaluation Date: 01/27/2024 Date of : 1945 Admission Date: 01/17/2024 11:29 PM Age: 78 y.o. Room/Bed: T1-105/T1-105 A Discharge Recommendation: IP Rehab Equipment Needed: (continue to assess) Assessment IMPRESSION: Patient is a 78-year-old male hospitalized s/p CABG x 4 on 01/22. Patient is functionally independent with self-care tasks and functional mobility at baseline. Patient is limited by the deficits listed below. Patient is Min Assist for UB ADLs, Max Assist LB ADLs and Max Assist toileting. Patient is Min Assist for transfers/functional mobility. Recommending Inpatient Rehab upon discharge. Admitting Diagnosis: NSTEMI Performance Deficits /Impairments: Increased Pain, Decreased Functional Mobility, Decreased ADL status, Decreased Strength, Decreased Safety Awareness, Decreased Endurance, and Decreased Balance Prognosis: Good Decision Making: Medium Complexity Subjective Patient sitting in recliner; patient reluctantly agreeable. Patient reporting feeling very gassed and being short of breathe. RN ok'd for participation. 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) Hyperlipemia Hypertension Past Surgical History: Past Surgical History: Procedure Laterality Date CARDIAC CATHETERIZATION Left 01/18/2024 CARDIAC CATHETERIZATION N/A 01/18/2024 Performed by Nicholas Arriaga MD at [facility] Cardiac Buffing And Polishing Wheel Repairer TONSILLECTOMY (HISTORICAL) Admission Diagnosis: Patient Active Problem List Diagnosis Date Noted NSTEMI (non-ST elevated myocardial infarction) (HCC) 01/18/2024 Mixed hyperlipidemia 01/18/2024 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) 01/18/2024 CKD stage 3a, GFR 45-59 ml/min (HCC) 01/18/2024 Essential hypertension 01/18/2024 Hematuria, microscopic 01/09/2019 Medical Precautions: No active isolations Proper PPE donned/doffed in accordance with facility standards. Fall Risk: Castro Fall Risk Score: 60 (High Risk) Precautions/Restrictions: Sternal Precautions: No lifting greater than 10 lbs. Ok for modified UE precautions using Keep Your Move in the Tube technique Lines/Drains/Airways: PIV, chest tube x 2, central line Family/Caregiver Present: none Overall Cognitive Status: WNL Overall Orientation Status: Oriented x4 Social/Functional History Patient's 4 days ago. Patient would have to discharge home alone but will be discharging to [facility]. Patient's sister lives at home in a 1-story condo with 8 steps to enter. Patient has FWW and rollator at home. Prior Level of Function ADL Assistance: Independent Ambulation Assistance: Independent Transfer Assistance: Independent Objective ADLs LE Dressing: Max Assist, Patient attempted to doff socks while sitting in recliner; but was able to complete. Anticipate more independence when chest tube are removed. Upper Extremity Assessment AROM: WFL PROM: Not assessed this session Strength: WFL Vision: no visual deficits Hearing: normal Bed Mobility NT- patient in recliner pre/post therapy evaluation Transfers/Functional Mobility Sit to stand: Min Assist Stand to sit: Min Assist Standing balance: Min Assist Functional mobility: Min Assist Patient min A for sit-stand from recliner. Patient able to state his sternal precautions. Patient min A for short distance ambulation. Patient with no overt LOB but overall unsteady. Patient limited by SOBOE and decreased endurance. FAIR standing balance and tolerance. Device(s) used: Rollator AM-PAC AM-PAC Inpatient Daily Activity Raw Score: 15 ADL Inpatient CMS G-Code Modifier: CK Plan Pt would benefit from skilled acute OT services to address Strengthening, Gait Training, Balance Training, Self-Care/ADL Training, Functional Mobility Training, Endurance Training, Safety Education and Training, and Pain Management. Frequency: 5x/week for 4 weeks Barriers: Pain, Impaired balance, Lower extremity weakness, Decreased endurance, Limited safety awareness, and Limited participation Safety/Education Safety Safety Devices in place: All fall risk precautions in place, call light within reach, left in chair, and nurse notified Restraints: No Education Education Given To: patient Education Provided: OT Role, Plan of Care, Precautions, and Discharge Recommendations Education Method: Verbal Barriers to Learning: None Education Outcome: Continued Education Needed Goals Patient Stated Goal: to breathe better Encounter Problems Encounter Problems (Active) Balance Patient will maintain dynamic standing balance for 3-5 minutes with supervision in order to demonstrate decreased risk of falling. Start: 01/27/24 Expected End: 02/24/24 Bathing Patient will utilize adaptive techniques to bathe body min A. Start: 01/27/24 Expected End: 02/24/24 Dressing Upper Extremities Patient will complete upper body dressing GA. Start: 01/27/24 Expected End: 02/24/24 Dressings Lower Extremities Patient will dress lower body min A. Start: 01/27/24 Expected End: 02/24/24 Toileting Patient will complete toileting tasks at standard toilet with min assist. Start: 01/27/24 Expected End: 02/24/24 Therapy Time Individual Co-treatment Time In 0920 Time Out 0931 Minutes 11 Anu Pavon OT Patient's Occupational Therapy Plan of Care supervision is transferred to a [facility] Services Occupational Therapist. Goals and/or treatment plan was established in collaboration with patient/family/other representatives. Images from the original note were not included. Cardiothoracic Surgery/[facility] Progress Note PATIENT NAME: Jorge Salamanca DATE: 01/27/24 HPI: 78 year old male patient with a PMHx that includes HTN, HLD, T2DM and CKD. He presented to ED with complaints of chest pain and SOB. Symptoms had been intermittent since 2 days prior. He had chest pain previously that resolved with TUMS. The chest pain returned the following night but then radiated to back, arms and jaw. Symptoms did not resolve with TUMS this time which prompted his visit to the ED. Workup revealed slightly inverted T waves on EKG. Initial troponin was 0.19. He was admitted for suspected NSTEMI and taken to the bolt labeler. Cath showed multivessel CAD and Cardiothoracic Surgery was consulted for surgical evaluation. Agreeable to surgery, taken to OR on 01/23/[address] Johnson. Surgery/Procedure: 01/23/24: Dr. Johnson- CABG x4, BIMA's, LEVH, sternal plating, TE Interval History: 01/27/24, POD# 4: Afib this morning with rates in low 100; Up in chair - stated doing better than what he was. More SOB noted this am - likely due to going into afib Review of Systems Constitutional: Positive for fatigue. Negative for diaphoresis and fever. Respiratory: Positive for shortness of breath. Negative for cough and wheezing. Cardiovascular: Negative for chest pain, palpitations and leg swelling. Gastrointestinal: Negative for abdominal distention, constipation and diarrhea. Skin: Negative for color change, pallor and rash. Objective: CT output cc/24hrs: 65 Last BM Date: 01/27/24 Vitals: BP: 92/67, MAP (mmHg): 74, BP Method: Automatic Heart Rate: 96 Resp: 21 Temp: 36.4 C (97.6 F), Temp Source: Temporal BMI (Calculated): 29.75 CXR: BMP: Recent Labs 01/25/24 0035 01/25/24 0557 01/25/24 0929 01/25/24 1523 01/25/24 2158 01/26/24 0452 01/26/24 0859 NA 135 < > 136 < > 133* 136 134* K 4.6 < > 4.1 < > 4.1 3.6 3.7 CL 105 < > 105 < > 101 101 101 CO2 17* < > 15* < > 21* 20* 24 BUN 28* < > 30* < > 39* 43* 45* CREATININE 2.90* < > 3.18* < > 3.48* 3.53* 3.57* CALCIUM 8.1* < > 8.7 < > 8.5 8.7 8.5 MG 2.4* -- 2.3 -- -- -- -- PHOS 5.0* -- 4.9* -- -- -- -- < > = values in this interval not displayed. CBC: Recent Labs 01/25/24 0035 01/26/24 0452 WBC 10.0 12.0* HGB 8.2* 9.3* HCT 26.2* 28.6* PLT 86* 111* MCV 91.0 86.4 RDW 14.2 14.0 Physical Exam Cardiovascular: Rate and Rhythm: Tachycardia present. Rhythm irregular. Heart sounds: Normal heart sounds. No murmur heard. No friction rub. Pulmonary: Effort: Pulmonary effort is normal. Comments: Short shallow breaths Skin: General: Skin is warm and dry. Capillary Refill: Capillary refill takes less than 2 seconds. Findings: Bruising and ecchymosis present. Comments: Surgical Incisions: well approximate; clean dry with no drainage noted. Surrounding skin no redness, warmth, or signs of infection noted. Neurological: Mental Status: He is alert. Psychiatric: Behavior: Behavior is cooperative. 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 HTN HLD Post operative Pulm Management: Normal Post-operative Course Post-operative Atrial Fibrillation: [x]Yes [] No Acute blood loss anemia/consumptive thrombocytopenia Plan: Patient Status: Telemetry Medications: Continue ASA, statin, and low dose BB (with hold parameters) -ok to run BP slightly higher Diuresis per nephrology Will need plavix prior to d/c for NSTEMI Switch back to IV amio for POAF Continue home meds: gabapentin, levothyroxine GI prophy: PO protonix DVT prophy: Heparin SubQ Bowel: senna/miralax Interventions: Pulmonary hygiene: IS and Acapella TEDs, SCDs Lines/Drains: -CVC: maintain today -Chest tubes: waterseal - remove today Restraints: []Yes [x] No Consults: Endocrinology following- insulin management D/c recs: likely none, follow up with PCP Cardiology following Nephrology following Therapies: PT: IPR Disposition: TBD - transfer to tele Tele Status A total of 21 minutes were spent between the [id number]-illg encounter, physical exam, reviewing the medical history, coordinating the patient's care, counseling/educating the patient, ordering medications/test/procedures, interpreting results and documenting clinical information in the patients electronic health record on the day of the encounter. The patient was seen and examined independently and relevant data reviewed by myself. A full chart review was performed. Patient discussed and plan of day developed from multidisciplinary rounds between Cardiothoracic Surgery (Cardiothoracic Surgeon, HORTENCIA) and Critical Care Attending Cardiac Core Medications: ASA, Statin, and BB EF: 74% 01/18/24 Blood Conservation: None noted in post-operative period Art Display Maker: Dr. Corina Mei Associated attestation - Bruce Scott MD - 01/27/2024 3:25 PM EDT I have personally performed a face to face diagnostic evaluation on this patient today on 01/27/24. Labs, imaging studies, and electronic medical record notes on [facility] have been reviewed by me. This note documented and discussed by the []senior loan officer []Fellow [x] HORTENCIA reflects my history, exam and medical decision making. I have reviewed and agree with the care plan. Changes were made in the orders as necessary. ROS documentation was reviewed and negative unless otherwise stated in the HPI. My history, exam, assessment and plan are as follows: Some elements copied from my notes, which have been updated where appropriate. All reflect current medical decision making from 01/27/24. Physical Exam listed was completed in entirely on 01/27/24 and is unchanged except where noted. Time spent for coordination of care: a subsequent visit: 25 minutes (Level I) Afib, back on amiodarone drip In chair, resp unlabored Heart tachy irregular Abd soft +BS Multivessel CAD, NSTEMI, 01/22 s/p CABG x 4 Afib RVR Anemia, thrombocytopenia expected post op, 4T low probability HTN, HLD DM2, hypothyroidism CKD3b, ALEXANDER non-oliguric followed by nephrology Cont IV amiodarone On ASA, statin, b-rd Images from the original note were not included. Nephrology Progress Note Patient: Jorge Salamanca Room number: T1-105/T1-105 A Date of Admit: 01/17/2024 LOS: 8 days Admitting physician: Loretta Johnson DO Referring physician: Loretta Johnson DO Outpatient Silk Trimmer: Dr. Light/[facility] Assessment/Plan: 78 y.o. male with a past medical history of CKD, DM, HTN, DLD who was admitted on 01/17/2024 with chest pain, found to have NSTEMI with multivessel CAD on [facility]. Consulted for pre-op risk stratification. S/p CABG 01/22. Now with ALEXANDER. #Nonoliguric ALEXANDER on CKD3b -Cr slowly uptrending. Suspect ischemic ATN. Ott in place with good UOP, responding to lasix challenge. Lytes/Acid-base: Lytes within normal limits (serum Na corrected for hyperglycemia at 135), bicarb 24 Ca/Phos: Ca 8.5, last Phos 4.9 HTN/Volume status: Bps soft. Some LE edema on exam. On 1L NC, CXR today 01/26/24 seems improved from yesterday's study. Anemia: Hgb 9.3 #NSTEMI s/p CABG 01/22 #Hyponatremia #DM #HTN #Afib with RVR Recommendations: -Will continue lasix challenge, ordered another 80 mg dose of IV Lasix this afternoon as well as repeat dose this evening (hold if BPs are insufficient) if needed to target 0-1L NN -Trend renal function daily -Limit antihypertensives as able (amlodipine has been discontinued) Thank you for this consult, we will continue to follow. Please call or page if any questions [facility] Pager: [phone] Office: [phone]. Office Subjective: Interval history/events: Patient endorsed dyspnea this morning and was administered additional diuresis. On evaluation he notes that the dyspnea is improved. 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 acetaminophen, 1,000 mg, Oral, q8h amiodarone, 400 mg, Oral, BID aspirin, 81 mg, Oral, Daily furosemide, 80 mg, IntraVENous, BID gabapentin, 300 mg, Oral, BID heparin, 5,000 Units, SubCUTAneous, BID insulin glargine, 10 Units, SubCUTAneous, q24h insulin lispro, 0-6 Units, SubCUTAneous, TID WC levothyroxine, 100 mcg, Oral, qAM AC Lidocaine, 1 patch, Topical, Daily metoclopramide, 5 mg, IntraVENous, q6h metoprolol tartrate, 12.5 mg, Oral, BID mupirocin, , Nasal, BID pantoprazole, 40 mg, Oral, qAM AC polyethylene glycol (PEG) 3350, 17 g, Oral, Daily rosuvastatin, 40 mg, Oral, Daily senna-docusate sodium, 2 tablet, Oral, Nightly simethicone, 80 mg, Oral, 4x daily sodium chloride 0.9%, 10 mL, IntraVENous, 2 times per day sodium chloride 0.9%, 5-40 mL, IntraCATHeter, q8h Review of Systems: All other ROS negative except those noted above. Physical Exam: Vitals: 01/26/24 1000 01/26/24 1029 01/26/24 1100 01/26/24 1200 BP: 108/61 109/56 98/51 BP Location: Left arm Patient Position: Pulse: 68 65 70 68 Resp: 12 Temp: 36.6 C (97.8 F) TempSrc: Temporal SpO2: 99% 95% 98% 95% Weight: Height: Admission weight: 81.6 kg (180 lb) Wt Readings from Last 3 Encounters: 01/26/24 83.6 kg (184 lb 3.2 oz) I/O last 3 completed shifts: In: 1732 (20.7 mL/kg) [P.O.:790; I.V.:942 (11.3 mL/kg)] Out: 3515 (42.1 mL/kg) [Urine:2905 (1 mL/kg/hr); Chest Tube:610] Weight: 83.6 kg Net IO Since Admission: -870.18 mL [01/26/24 1258] General: A&O x 3, NAD HEENT: Sclera clear, EOMI, MMM, Nose/ears/hearing grossly normal Neck: Supple, trachea midline, no mass, no TM Heart: RRR, no rub/heave Lungs: Clear bilaterally, unlabored Abd: Soft, (+) BS, non-tender Ext: 1-2+ LE edema Neuro: No tremor/myoclonus Skin: warm and dry, no rash LABS: Recent Labs 01/24/24 0009 01/25/24 0035 01/26/24 0452 WBC 9.5 10.0 12.0* HGB 8.8* 8.2* 9.3* HCT 26.9* 26.2* 28.6* MCV 87.1 91.0 86.4 PLT 97* 86* 111* No results found for: IRON, TIBC, FERRITIN No results found for: [id number], FOLATE Recent Labs 01/24/24 0009 01/24/24 1502 01/25/24 0035 01/25/24 0557 01/25/24 0929 01/25/24 1523 01/25/24 2158 01/26/24 0452 01/26/24 0859 NA 142 < > 135 < > 136 < > 133* 136 134* K 4.6 < > 4.6 < > 4.1 < > 4.1 3.6 3.7 CL 112* < > 105 < > 105 < > 101 101 101 CO2 15* < > 17* < > 15* < > 21* 20* 24 BUN 21* < > 28* < > 30* < > 39* 43* 45* CREATININE 2.18* < > 2.90* < > 3.18* < > 3.48* 3.53* 3.57* GLUCOSE 119* < > 166* < > 164* < > 239* 155* 165* CALCIUM 8.3* < > 8.1* < > 8.7 < > 8.5 8.7 8.5 MG 2.6* -- 2.4* -- 2.3 -- -- -- -- PHOS 3.6 -- 5.0* -- 4.9* -- -- -- -- ANIONGAP 15* < > 12 < > 16* < > 11 14* 9 < > = values in this interval not displayed. Lab Results Component Value Date CALCIUM 8.5 01/26/2024 CAION 4.10 (L) 01/25/2024 PHOS 4.9 (H) 01/25/2024 No components found for: [id number] Diagnostic Studies: CXR 01/24 FINDINGS: The patient is status post CABG with the usual sternal wires and surgical clips. The [place]-Zeynep catheter has been withdrawn. An introducer sheath remains in place in the right internal jugular vein. The heart is mildly enlarged. Mediastinal and bilateral chest tubes are in place. There is no pneumothorax. There is mild prominence of the central pulmonary vasculature. Impression: 1. Postoperative changes (CABG). 2. Chest tubes without pneumothorax. 3. Prominence of the central pulmonary vasculature consistent with mild congestive heart failure/fluid overload. Personally reviewed available data [labs, MARS, radiologic studies, and electronic records]. Parts of assessment/plan may have been copied from prior entry and amended as needed. It reflects full evaluation and pathophysiology of processes involved. Department of Internal Medicine Division of Endocrinology, Diabetes, & Metabolism Endocrinology Note Patient Name: Jorge Salamanca : 1945 AGE: 78 y.o. Room/Bed: T1-105/T1-105 A Admission Date: 01/17/2024 Visit Date: 01/26/2024 Reason for Endocrine Consult: Post Op Glycemic Management Provider/Team Requesting Consult: Dr Solorzano PCP: ERIC NICOLAS DO Outpt Mat Machine Operator: No ASSESSMENT: DM2 without usp use of insulin Steroid induced hyperglycemia HTN HLD CKD Hypothyroidism PLAN: Hyperglycemia in the 400's through POCT overnight inaccurate since concurrent serum glucose 416 Continue Lantus 10 units q24 hours Continue Humalog 0-6 tid SSI Continue home LT4 100mcg daily ICU goal <180 GMF goal <150 POCT BG ACHS Hypoglycemia management per protocol Carb controlled diet ANTICIPATED ENDOCRINE HOME GOING RECOMMENDATIONS: Optimized for Discharge from Endocrine standpoint: No Home Going Endocrine Rx Recommendations-- TBD; likely none Outpt Follow Up-- PCP SUBJECTIVE/HPI: CHIEF COMPLAINT: Chief Complaint Patient presents with Chest Pain Jorge Salamanca is a 78 year old male patient with a PMHx that includes HTN, HLD, T2DM and CKD. He presented to ED with complaints of chest pain and SOB. Symptoms had been intermittent since 2 days prior. He had chest pain previously that resolved with TUMS. The chest pain returned the following night but then radiated to back, arms and jaw. Symptoms did not resolve with TUMS this time which prompted his visit to the ED. Workup revealed slightly inverted T waves on EKG. Initial troponin was 0.19. He was admitted for suspected NSTEMI and taken to the bolt labeler. Cath showed multivessel CAD and Cardiothoracic Surgery was consulted for surgical evaluation. Agreeable to surgery, taken to OR on 01/23/[address] Johnson. History of Type 2 Diabetes Age at Onset: Early 60s Circumstances surrounding dx: screening Previous hospitalizations for DM: Denies Home DM Medication Regimen: Untreated Previously Used DM Agents: Metformin Glimepiride Injection Sites/Rotation: NA Missed Medication Doses: NA Medication Side Effects: NA Medication Cost Concerns: NA Glucose Monitoring CGM use: No BG Monitoring: has home glucometer Recent Hypoglycemia: Denies Hypoglycemic Treatment Plan: NA Trend Review: Lab Results Component Value Date HGBA1C 6.0 (H) 01/18/2024 No results found for: TSH Glucose Date/Time Value Ref Range Status 01/26/2024 09:07 AM 177 (H) 70 - 100 mg/dL Final 01/25/2024 09:58 PM 416 (H) 70 - 100 mg/dL Final 01/25/2024 05:59 PM 217 (H) 70 - 100 mg/dL Final 01/25/2024 01:39 PM 190 (H) 70 - 100 mg/dL Final 01/25/2024 08:08 AM 157 (H) 70 - 100 mg/dL Final 01/24/2024 06:27 PM 158 (H) 70 - 100 mg/dL Final Complication History Retinopathy: Denies Neuropathy: Denies HTN: Endorses HLD: Endorses Renal: Endorses- CKD; follows w/ Nephrology Cardiac: Endorses-CAD s/p CABG x4 (01/23/24); NSTEMI CVA: Denies VENKATA: Denies Gastroparesis: Denies H/o Pancreatitis: Denies Impaired Wound Healing: Denies Amputation: Denies Metabolic Dysfunction Associated Steatotic Liver Disease: Denies Hypoglycemic Unawareness: Denies Hypothyroidism 01/26/2024 : Patient seen at bedside He is asleep Per notes PO intake has been between 50-75% Review of Systems Unable to perform ROS: Other OBJECTIVE: Vitals: 01/26/24 0830 01/26/24 0900 01/26/24 0930 01/26/24 1000 BP: 116/58 102/55 149/61 108/61 BP Location: Left arm Patient Position: Sitting Pulse: 60 59 63 68 Resp: 17 Temp: 36.1 C (96.9 F) TempSrc: Temporal SpO2: 97% 97% 96% 99% Weight: Height: Physical Exam Constitutional: General: He is sleeping. HENT: Head: Normocephalic and atraumatic. Mouth/Throat: Mouth: Mucous membranes are moist. Cardiovascular: Rate and Rhythm: Normal rate and regular rhythm. Pulmonary: Effort: Pulmonary effort is normal. Abdominal: General: There is no distension. 24 hour intake/output: Intake/Output Summary (Last 24 hours) at 01/26/2024 1024 Last data filed at 01/26/2024 0800 Gross per 24 hour Intake 1712 ml Output 2665 ml Net -953 ml Diet: Adult diet Regular; 5 carb choices (75 gm/meal) Medications (as per EMR): HomeMeds: Current Outpatient Medications Medication Instructions amLODIPine (NORVASC) 5 mg, Oral, Daily gabapentin (NEURONTIN) 600 mg, Oral, 2 times daily levothyroxine (SYNTHROID, LEVOXYL) 100 mcg, Oral, Daily before breakfast metoprolol succinate XL (TOPROL-XL) 100 mg, Oral, Daily omega-3 (FISH OIL) 1,000 mg, Oral, Daily Scheduled Meds:acetaminophen, 1,000 mg, Oral, q8h amiodarone, 400 mg, Oral, BID aspirin, 81 mg, Oral, Daily gabapentin, 300 mg, Oral, BID heparin, 5,000 Units, SubCUTAneous, BID insulin glargine, 10 Units, SubCUTAneous, q24h insulin lispro, 0-6 Units, SubCUTAneous, TID WC levothyroxine, 100 mcg, Oral, qAM AC Lidocaine, 1 patch, Topical, Daily metoclopramide, 5 mg, IntraVENous, q6h metoprolol tartrate, 12.5 mg, Oral, BID mupirocin, , Nasal, BID pantoprazole, 40 mg, Oral, qAM AC polyethylene glycol (PEG) 3350, 17 g, Oral, Daily rosuvastatin, 40 mg, Oral, Daily senna-docusate sodium, 2 tablet, Oral, Nightly simethicone, 80 mg, Oral, 4x daily sodium chloride 0.9%, 10 mL, IntraVENous, 2 times per day sodium chloride 0.9%, 5-40 mL, IntraCATHeter, q8h Continuous Infusions: PRN Meds:PRN medications: calcium gluconate, dextrose, dextrose, glucagon (rDNA), glucose, ipratropium-albuterol, magnesium hydroxide, magnesium sulfate OR magnesium sulfate, naloxone, oxyCODONE OR oxyCODONE, potassium chloride OR potassium chloride OR potassium chloride, potassium chloride CR, sodium chloride, sodium chloride 0.9%, sodium chloride 0.9% Diagnostic Workup: I reviewed pertinent Laboratory results, Radiographic results, and Other Clinical Notes at the time of today's encounter. Labs: No components found for: LABA1C No components found for: EAG Lab Results Component Value Date NA 134 (L) 01/26/2024 K 3.7 01/26/2024 CL 101 01/26/2024 CO2 24 01/26/2024 BUN 45 (H) 01/26/2024 CREATININE 3.57 (H) 01/26/2024 GLUCOSE 165 (H) 01/26/2024 CALCIUM 8.5 01/26/2024 Lab Results Component Value Date CHOL 180 01/18/2024 Lab Results Component Value Date TRIG 100 01/18/2024 Lab Results Component Value Date HDL 33 (L) 01/18/2024 Lab Results Component Value Date LDLCALC 127 (H) 01/18/2024 No results found for: VLDL Lab Results Component Value Date CHOLHDLRATIO 5 01/18/2024 No results found for: [id number] No results found for: TSH, [id number], [id number], THYROIDAB Radiology reportsas per the Radiologist Radiology: POCT ACT Result Date: 01/21/2024 Performed by: [facility], [address] [place] [address] CLIA ID: [id number] ECG 12 lead Sinus bradycardia Electronically Signed On 01-20-2024 18:31:49 EDT by Melina Bolaños Cardiac procedure Result Date: 01/18/2024 NSTEMI due to 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 LM with 70% distal stenosis LAD with ostial and proximal 85% stenosis, 80% mid segment stenosis and 50% distal stenosis Ramus intermedius with an 80% proximal stenosis and 70% mid to distal segment stenoiss Left circumflex with an 80% mid segment stenosis RCA with 99% distal segment stenosis at the bifurcation to the RPDA and RPLV. 90% stenosis of proximal RPL and 100% TURBINATED BONE GRINDER of ostial RPDA--distal vessel filling by [id number] collaterals. Normal LVEDP; no aortic stenosis. Transthoracic echocardiogram (TTE) complete with contrast, bubble, strain, and 3D PRN Result Date: 01/18/2024 Left Ventricle: Left ventricle size is normal. Mildly increased wall thickness. Normal left ventricular systolic function. EF by 2D Simpsons Biplane is 74%. Normal wall motion. Diastolic dysfunction present with normal LVEF. Right Ventricle: Right ventricle size is normal. Normal systolic function. Aortic Valve: Mild (1+) regurgitation. Left Atrium: Left atrium is mildly dilated. Pulmonary Arteries: Pulmonary artery was not well visualized. Mild pulmonary hypertension present. No comparison record. ECG 12 lead Sinus rhythm Atrial premature complexes Abnormal R-wave progression, early transition Repol abnrm suggests ischemia, lateral leads Electronically Signed On 01-18-2024 06:16:41 EDT by Jose Robledo XR chest 1 view Result Date: 01/17/2024 Patient Name: JORGE SALAMANCA : 1945 Exam Date/Time: 01/17/2024 23:47 Procedure: XR CHEST 1 VIEW Ordering Provider: ROBLEDO VISHNU Reason For Exam: acute chest pain CLINICAL INFORMATION: Chest pain. Portable view of the chest at 2340 hours is provided without comparison. FINDINGS: The cardiac silhouette and mediastinum are within normal limits. There are no focal infiltrates. However, tiny nodular densities are noted diffusely (miliary pattern). The visualized bones and soft tissues are grossly unremarkable. 1. No focal infiltrates. 2. Diffuse miliary pattern in the lung morrow. This is nonspecific but may indicate histoplasmosis among other entities. 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) Hyperlipemia Hypertension Past Surgical History: Past Surgical History: Procedure Laterality Date CARDIAC CATHETERIZATION Left 01/18/2024 CARDIAC CATHETERIZATION N/A 01/18/2024 Performed by Nicholas Arriaga MD at [facility] Cardiac Buffing And Polishing Wheel Repairer TONSILLECTOMY (HISTORICAL) Allergy(ies): Allergies Allergen Reactions Bee Venom Family History: Family History Problem Relation Name Age of Onset No Known Problems Brother No Known Problems Brother Bipolar disorder Sister Arthritis Sister Lung cancer Father Alzheimer's disease Mother Cancer Father Social History: Social History Tobacco Use Smoking status: Never Passive exposure: Current Smokeless tobacco: Never Tobacco comments: Quit smoking: smokes 3.5 packs daily Substance Use Topics Alcohol use: Not Currently Drug use: Never Portions of the information within this encounter were entered using an electronic dictation system. Best attempts were made to edit/proofread the information prior to note completion. Despite the review of information, some errors may remain. If there are questions related to the information contained within the note please contact the signing physician directly. I spent 25 minutes with the pt which involved coordination of care, medical evaluation, review of records, and/or counseling of the pt regarding his/her condition/disease state/prognosis on the date of this note. Images from the original note were not included. Cardiothoracic Surgery/[facility] Progress Note PATIENT NAME: Jorge Salamanca DATE: 01/26/24 HPI: 78 year old male patient with a PMHx that includes HTN, HLD, T2DM and CKD. He presented to ED with complaints of chest pain and SOB. Symptoms had been intermittent since 2 days prior. He had chest pain previously that resolved with TUMS. The chest pain returned the following night but then radiated to back, arms and jaw. Symptoms did not resolve with TUMS this time which prompted his visit to the ED. Workup revealed slightly inverted T waves on EKG. Initial troponin was 0.19. He was admitted for suspected NSTEMI and taken to the bolt labeler. Cath showed multivessel CAD and Cardiothoracic Surgery was consulted for surgical evaluation. Agreeable to surgery, taken to OR on 01/23/[address] Johnson. Surgery/Procedure: 01/23/24: Dr. Johnson- CABG x4, BIMA's, LEVH, sternal plating, TE Interval History: 01/26/24, POD# 3: VSS on NC. Up to chair this morning. Getting better each day - weak today. No other issues at this time. Review of Systems Constitutional: Positive for fatigue. Negative for diaphoresis and fever. Respiratory: Negative for cough, shortness of breath and wheezing. Cardiovascular: Negative for chest pain, palpitations and leg swelling. Gastrointestinal: Negative for abdominal distention, constipation and diarrhea. Skin: Negative for color change, pallor and rash. Objective: CT output cc/24hrs: 490 UO cc/24hrs: 1880 Last BM Date: 01/17/24 Vitals: BP: 91/59, MAP (mmHg): 70, BP Method: Automatic Heart Rate: 62 Resp: 19 Temp: 36.7 C (98 F), Temp Source: Temporal BMI (Calculated): 29.75 CXR: BMP: Recent Labs 01/24/24 0009 01/24/24 1502 01/25/24 0035 01/25/24 0557 01/25/24 0929 01/25/24 1523 01/25/24 2158 01/26/24 0452 NA 142 < > 135 < > 136 135 133* 136 K 4.6 < > 4.6 < > 4.1 4.1 4.1 3.6 CL 112* < > 105 < > 105 101 101 101 CO2 15* < > 17* < > 15* 15* 21* 20* BUN 21* < > 28* < > 30* 32* 39* 43* CREATININE 2.18* < > 2.90* < > 3.18* 3.41* 3.48* 3.53* CALCIUM 8.3* < > 8.1* < > 8.7 8.9 8.5 8.7 MG 2.6* -- 2.4* -- 2.3 -- -- -- PHOS 3.6 -- 5.0* -- 4.9* -- -- -- < > = values in this interval not displayed. CBC: Recent Labs 01/24/24 0009 01/25/24 0035 01/26/24 0452 WBC 9.5 10.0 12.0* HGB 8.8* 8.2* 9.3* HCT 26.9* 26.2* 28.6* PLT 97* 86* 111* MCV 87.1 91.0 86.4 RDW 14.0 14.2 14.0 INR: Recent Labs 01/23/24 1314 01/24/24 0009 INR 1.6* 1.1 Physical Exam Cardiovascular: Rate and Rhythm: Normal rate and regular rhythm. Heart sounds: Normal heart sounds. No murmur heard. No friction rub. Pulmonary: Effort: Pulmonary effort is normal. Breath sounds: Decreased breath sounds present. Genitourinary: Comments: Ott catheter to straight drain Skin: General: Skin is warm and dry. Capillary Refill: Capillary refill takes less than 2 seconds. Findings: Bruising and ecchymosis present. Comments: Surgical Incisions: well approximate; clean dry with no drainage noted. Surrounding skin no redness, warmth, or signs of infection noted. Neurological: Mental Status: He is alert. Psychiatric: Behavior: Behavior is cooperative. 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 HTN HLD Post operative Pulm Management: Normal Post-operative Course Post-operative Atrial Fibrillation: [x]Yes [] No Acute blood loss anemia/consumptive thrombocytopenia Plan: Patient Status: Telemetry Medications: Continue ASA, statin, and low dose BB D/c CCB -ok to run BP slightly higher Diuresis per nephrology Amio IV changed to PO Continue home meds: gabapentin, levothyroxine GI prophy: PO protonix DVT prophy: Heparin SubQ Bowel: senna/miralax Interventions: Pulmonary hygiene: IS and Acapella TEDno, SCDs Lines/Drains: -CVC: maintain today -Ott: remove today -Chest tubes: to waterseal Restraints: []Yes [x] No Consults: Endocrinology following- insulin management D/c recs: likely none, follow up with PCP Cardiology following Nephrology following Therapies: PT: IPR Disposition: TBD - transfer to tele Tele Status A total of 22 minutes were spent between the [id number] encounter, physical exam, reviewing the medical history, coordinating the patient's care, counseling/educating the patient, ordering medications/test/procedures, interpreting results and documenting clinical information in the patients electronic health record on the day of the encounter. The patient was seen and examined independently and relevant data reviewed by myself. A full chart review was performed. Patient discussed and plan of day developed from multidisciplinary rounds between Cardiothoracic Surgery (Cardiothoracic Surgeon, HORTENCIA) and Critical Care Attending Cardiac Core Medications: ASA, Statin, and BB EF: 74% 01/18/24 Blood Conservation: None noted in post-operative period Art Display Maker: Dr. Corina Mei Associated attestation - Bruce Scott MD - 01/26/2024 9:28 AM EDT I have personally performed a face to face diagnostic evaluation on this patient today on 01/26/24. Labs, imaging studies, and electronic medical record notes on [place] have been reviewed by me. This note documented and discussed by the []senior loan officer []Fellow [x] HORTENCIA reflects my history, exam and medical decision making. I have reviewed and agree with the care plan. Changes were made in the orders as necessary. ROS documentation was reviewed and negative unless otherwise stated in the HPI. My history, exam, assessment and plan are as follows: Some elements copied from my notes, which have been updated where appropriate. All reflect current medical decision making from 01/26/24. Physical Exam listed was completed in entirely on 01/26/24 and is unchanged except where noted. Time spent for coordination of care: a subsequent visit: 25 minutes (Level I) In chair, on nasal cannula, resp unlabored Heart RRR Lungs symmetric clear anteriorly Multivessel CAD, NSTEMI, 01/22 s/p CABG x 4 Atrial tachycardia-->sinus Anemia, thrombocytopenia expected post op, 4T low probability HTN, HLD DM2, hypothyroidism CKD3b, ALEXANDER non-oliguric followed by nephrology On amio drip-->transition to oral On ASA, statin, b-rd Images from the original note were not included. Nephrology Progress Note Patient: oJrge Salamanca Room number: T1-105/T1-105 A Date of Admit: 01/17/2024 LOS: 7 days Admitting physician: Loretta Johnson DO Referring physician: Loretta Johnson DO Outpatient Silk Trimmer: Dr. Light/[facility] Assessment/Plan: 78 y.o. male with a past medical history of CKD, DM, HTN, DLD who was admitted on 01/17/2024 with chest pain, found to have NSTEMI with multivessel CAD on [facility]. Consulted for pre-op risk stratification. S/p CABG 01/22. Now with ALEXANDER. #Nonoliguric ALEXANDER on CKD3b -Cr uptrending. Suspect ischemic ATN in setting of OHS. Ott in place with good UOP, responding to lasix challenge. Lytes/Acid-base: Lytes within normal limits, bicarb 15 Ca/Phos: Ca 8.7, Phos 4.9 HTN/Volume status: Bps soft. Some LE edema on exam. On 2L NC and mild congestion on CXR. Anemia: Hgb 8.2 #NSTEMI s/p CABG 01/22 #Hyponatremia #DM #HTN #Afib with RVR Recommendations: -Agree with lasix challenge, can repeat in PM if needed to target 0-1L NN -Trend renal function daily -Limit antihypertensives as able, note amlodipine on board for SUHAS graft Thank you for this consult, we will continue to follow. Please call or page if any questions [facility] Pager: [phone] Office: [phone]. Office Subjective: Interval history/events: This AM just had episode of afib with RVR, asymptomatic, responded to lopressor. Patient denies palpitations. Some CP in setting of recent operation. No dyspnea. 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 acetaminophen, 1,000 mg, Oral, q8h amiodarone, , , amLODIPine, 2.5 mg, Oral, Daily aspirin, 81 mg, Oral, Daily chlorhexidine, 15 mL, Mouth/Throat, BID gabapentin, 300 mg, Oral, BID [Held by provider] heparin, 5,000 Units, SubCUTAneous, BID insulin glargine, 10 Units, SubCUTAneous, q24h insulin lispro, 0-6 Units, SubCUTAneous, TID WC levothyroxine, 100 mcg, Oral, qAM AC Lidocaine, 1 patch, Topical, Daily metoclopramide, 10 mg, IntraVENous, q6h metoprolol tartrate, 12.5 mg, Oral, BID mupirocin, , Nasal, BID pantoprazole, 40 mg, Oral, qAM AC polyethylene glycol (PEG) 3350, 17 g, Oral, Daily rosuvastatin, 40 mg, Oral, Daily senna-docusate sodium, 2 tablet, Oral, Nightly simethicone, 80 mg, Oral, 4x daily sodium chloride 0.9%, 10 mL, IntraVENous, 2 times per day sodium chloride 0.9%, 5-40 mL, IntraCATHeter, q8h amiodarone, 1 mg/min Followed by amiodarone, 0.5 mg/min lactated ringers, 250 mL, Last Rate: Stopped (01/24/24 0306) sodium chloride, 20 mL/hr, Last Rate: 20 mL/hr (01/23/24 1511) Review of Systems: All other ROS negative except those noted above. Physical Exam: Vitals: 01/25/24 0800 01/25/24 0823 01/25/24 1023 01/25/24 1032 BP: 118/59 100/60 106/63 BP Location: Right arm Patient Position: Sitting Pulse: 81 78 114 Resp: (!) 30 19 Temp: 36.9 C (98.5 F) TempSrc: Temporal SpO2: 95% 95% Weight: Height: Admission weight: 81.6 kg (180 lb) Wt Readings from Last 3 Encounters: 01/25/24 83.5 kg (184 lb) I/O last 3 completed shifts: In: 1302 (15.6 mL/kg) [I.V.:1302 (15.6 mL/kg)] Out: 2851 (34.2 mL/kg) [Urine:1881 (0.6 mL/kg/hr); Chest Tube:970] Weight: 83.5 kg Net IO Since Admission: 182.82 mL [01/25/24 1125] General: A&O x 3, NAD HEENT: Sclera clear, EOMI, MMM, Nose/ears/hearing grossly normal Neck: Supple, trachea midline, no mass, no TM Heart: RRR, no rub/heave Lungs: Clear bilaterally, unlabored Abd: Soft, (+) BS, non-tender Ext: 1-2+ LE edema Neuro: No tremor/myoclonus Skin: warm and dry, no rash LABS: Recent Labs 01/23/24 1638 01/24/24 0009 01/25/24 0035 WBC 7.9 9.5 10.0 HGB 10.1* 8.8* 8.2* HCT 30.7* 26.9* 26.2* MCV 85.8 87.1 91.0 PLT 104* 97* 86* No results found for: IRON, TIBC, FERRITIN No results found for: [id number], FOLATE Recent Labs 01/24/24 0009 01/24/24 1502 01/25/24 0035 01/25/24 0557 01/25/24 0929 NA 142 < > 135 137 136 K 4.6 < > 4.6 4.2 4.1 CL 112* < > 105 107 105 CO2 15* < > 17* 16* 15* BUN 21* < > 28* 29* 30* CREATININE 2.18* < > 2.90* 3.02* 3.18* GLUCOSE 119* < > 166* 129* 164* CALCIUM 8.3* < > 8.1* 8.4 8.7 MG 2.6* -- 2.4* -- 2.3 PHOS 3.6 -- 5.0* -- 4.9* ANIONGAP 15* < > 12 14* 16* < > = values in this interval not displayed. Lab Results Component Value Date CALCIUM 8.7 01/25/2024 CAION 4.10 (L) 01/25/2024 PHOS 4.9 (H) 01/25/2024 No components found for: [id number] Diagnostic Studies: CXR 01/24 FINDINGS: The patient is status post CABG with the usual sternal wires and surgical clips. The [place]-Zeynep catheter has been withdrawn. An introducer sheath remains in place in the right internal jugular vein. The heart is mildly enlarged. Mediastinal and bilateral chest tubes are in place. There is no pneumothorax. There is mild prominence of the central pulmonary vasculature. Impression: 1. Postoperative changes (CABG). 2. Chest tubes without pneumothorax. 3. Prominence of the central pulmonary vasculature consistent with mild congestive heart failure/fluid overload. Personally reviewed available data [labs, MARS, radiologic studies, and electronic records]. Parts of assessment/plan may have been copied from prior entry and amended as needed. It reflects full evaluation and pathophysiology of processes involved. Images from the original note were not included. PHYSICAL THERAPY [facility] Treatment Note Name/MRN: Jorge Salamanca ([id number]) Date of : 1945 Age: 78 y.o. Room/Bed: T1-105/T1-105 A Discharge Recommendation: IP Rehab Equipment Needed: No Prior Level of Function ADL Assistance: Independent Ambulation Assistance: Independent Transfer Assistance: Independent Assessment Pt fatigued through out session and needed cues to keep eyes open. Overall min assist for transfers and gait. Recommend IP rehab discharge. Subjective Pt up in chair. Agreeable to PT. Pain: no c/o pain. Medical Precautions: No active isolations Proper PPE donned/doffed in accordance with facility standards. Fall Risk: Castro Fall Risk Score: 60 (High Risk) Precautions/Restrictions: Sternal Precautions: No Pushing, No Pulling, No Lifting Greater Than 10 lbs Lines/Drains/Airways: chest tube 2x, catheter, 2L of O2, telemetry Overall Cognitive Status: Exceptions - Following commands: follows one step commands with increased time - Initiation: requires cues for all - Sequencing: requires cues for all Overall Orientation Status: Oriented to Person Family/Caregiver Present: none Objective Transfers/Mobility Sit to stand: Min Assist Stand to sit: Min Assist Used pillow for sternal precautions Device(s) used: Nezzie Ambulation Ambulation 1 Assistive device(s) used: Nezzie Assist level: Min Assist Distance (ft): ~35 ft x 2 Quality of gait: slow aniyah, instability through all phases Exercises Exercises Comments: Performed P&C exercises 1-9 except #5 x 5 reps. Some AROM-> AAROM. Pt limited by fatigue. IS to 500ml x 10 reps Plan Continue acute PT per plan of care. Safety/Education Safety Safety Devices in place: All fall risk precautions in place, call light within reach, left in chair, and no alarms engaged upon entry Restraints: No Education HEP, Transfers, Gait, Sternal precautions Outcome Measures AM-PAC AM-PAC Inpatient Mobility Raw Score (No Stairs) : 15 JH-HLM -HLM Score: Walked 25 ft or more (i.e. walked outside of room) Goals Patient Stated Goal: to live 9-10 more years Encounter Problems Encounter Problems (Active) Cardiac Patient will perform bed mobility with independence in order to improve independence and prepare for out of bed mobility. (Not Addressed) Start: 01/24/24 Expected End: 02/21/24 Patient will complete sit to stand transfer with independence to none in order to improve safety and prepare for out of bed mobility. (Progressing) Start: 01/24/24 Expected End: 02/21/24 Patient will ambulate 300 feet or ambulate 5 minutes with independence with RPE of 14 or lower. (Progressing) Start: 01/24/24 Expected End: 02/21/24 Patient will ascend and descend 8 # stairs with independence rail for balance only. (Not Addressed) Start: 01/24/24 Expected End: 02/21/24 Patient will be independent with P&C exercises. (Progressing) Start: 01/24/24 Expected End: 02/21/24 Patient will be independent with managing secretions and home walking program. (Progressing) Start: 01/24/24 Expected End: 02/21/24 Pain - Adult Encounter Problems (Resolved) Pain - Adult Therapy Time Individual Co-treatment Time In 940 Time Out 1006 Minutes 25 Timed Code Treatment Minutes: 25 Minutes (gait, TP) Yomaira Sneed PTA Images from the original note were not included. [facility] [place] [facility] [place] NAME: Jorge Salamanca DATE OF : 1945 CHIEF COMPLAINT NSTEMI ASSESSMENT AND PLAN NSTEMI MVCAD s/p CABG Stable without angina. VS are stable. Review CXR imaging from today, pulmonary congestion somewhat worse. Agree with diuresing. Would add Plavix (NSTEMI) when hemodynamically stable. Continue GDMT: lifelong aspirin, metoprolol, and rosuvastatin. Will plan for cardiac rehab at discharge when cleared by CTS. Continue early ambulation and IS. Lifestyle modification: Follow a Mediterranean (low fat/low cholesterol) diet. Exercise for 30 minutes a day 3 or more days a week. Weight loss. Avoid caffeine, alcohol and tobacco products. Reduce stress. Postop Atrial fibrillation EKG tracing review patient went into AF with ventricular rate 107 bpm on EKG with ventricular rates as high as 142 bpm on telemetry. He was started on amiodarone protocol and converted back into NSR. Rate control: metoprolol. Hypertension Blood pressure acceptable. He is tolerating current therapy. BP Goal <120/80. Continue amlodipine and metoprolol. Recommend a DASH diet. Continue to monitor and report persistent HTN. Hyperlipidemia Last LDL 127, above recommended goal of <55 mg/dL per ESC guidelines. Last LFTs were elevated, would continue statin for now and repeat LFTs to reassess. Continue rosuvastatin. (Follow Mediterranean diet (low fat/low cholesterol). CKD stage 111b Baseline Cr. 1.9-2.0. Last Cr. 3.02. His renal fx worse overnight, maybe be s/t volume overload, agree with diuresing and monitoring closely. Avoid nephrotoxic medications. Blood loss anemia H&H remains low, but stable. DM2 Last HgbA1c was 6%, well controlled. Continue current therapy. Follow ADA diet. Endocrine is following. SUBJECTIVE Jorge Salamanca is an 78 y.o. male with past medical history significant for hypertension, hyperlipidemia, CKD stage IIIb, DM2, and overweight. He presented to the hospital with hx of KLINE, chest pressure radiating to arms not relieved by Tums ( recently ). His troponin peaked at 2.250, proBNP >1300. EKG SR with PAC, abnormal repolarization in lateral leads. His TTE show normal LVEF 75% with mild AVR. He underwent uncomplicated LHC with Dr. Arriaga which showed MVCAD. CTS c/s. He had CABG x [address] Johnson on 01/23/24. POD 2 patient is up to the chair, he walked the garcia today and had both SOB and fatigue. He still has incisional pain. He didn't sleep well last night, recalls confusion but is oriented at this time. Appetite is better. Denies any chest pain, chest tightness, palpitations, dizziness, lightheadedness, presyncope or syncope. Denies any edema, orthopnea, PND, bendopnea, or weight changes. Denies myalgia, nausea, vomiting, diarrhea, dysuria, fever, or chills. No acute events overnight. Allergies Allergen Reactions Bee Venom OBJECTIVE Vitals: 01/25/24 0800 01/25/24 0823 01/25/24 1023 01/25/24 1032 BP: 118/59 100/60 106/63 BP Location: Right arm Patient Position: Sitting Pulse: 81 78 114 Resp: (!) 30 19 Temp: 36.9 C (98.5 F) TempSrc: Temporal SpO2: 95% 95% Weight: Height: Intake/Output Summary (Last 24 hours) at 01/25/2024 1215 Last data filed at 01/25/2024 0400 Gross per 24 hour Intake 0 ml Output 1575 ml Net -1575 ml Physical Exam Constitutional: General: He is not in acute distress. Appearance: Normal appearance. Neck: Vascular: No JVD. Cardiovascular: Rate and Rhythm: Normal rate. Rhythm irregular. Pulses: Normal pulses. Heart sounds: Normal heart sounds. No murmur heard. Pulmonary: Effort: Pulmonary effort is normal. Breath sounds: Normal breath sounds. No rales. Comments: Bilateral CT with serosanguinous drainage Chest: Comments: Mid sternal incision is well approximated Genitourinary: Comments: Ott catheter in place with yellow urine Skin: General: Skin is warm and dry. Neurological: Mental Status: He is alert and oriented to person, place, and time. Psychiatric: Mood and Affect: Mood normal. Speech: Speech normal. MEDICATIONS acetaminophen, 1,000 mg, Oral, q8h amiodarone, , , amLODIPine, 2.5 mg, Oral, Daily aspirin, 81 mg, Oral, Daily chlorhexidine, 15 mL, Mouth/Throat, BID gabapentin, 300 mg, Oral, BID [Held by provider] heparin, 5,000 Units, SubCUTAneous, BID insulin glargine, 10 Units, SubCUTAneous, q24h insulin lispro, 0-6 Units, SubCUTAneous, TID WC levothyroxine, 100 mcg, Oral, qAM AC Lidocaine, 1 patch, Topical, Daily metoclopramide, 10 mg, IntraVENous, q6h metoprolol tartrate, 12.5 mg, Oral, BID mupirocin, , Nasal, BID pantoprazole, 40 mg, Oral, qAM AC polyethylene glycol (PEG) 3350, 17 g, Oral, Daily rosuvastatin, 40 mg, Oral, Daily senna-docusate sodium, 2 tablet, Oral, Nightly simethicone, 80 mg, Oral, 4x daily sodium chloride 0.9%, 10 mL, IntraVENous, 2 times per day sodium chloride 0.9%, 5-40 mL, IntraCATHeter, q8h INFUSION MEDICATIONS amiodarone, 1 mg/min Followed by amiodarone, 0.5 mg/min lactated ringers, 250 mL, Last Rate: Stopped (01/24/24 0306) sodium chloride, 20 mL/hr, Last Rate: 20 mL/hr (01/23/24 1511) LAB VALUES AND TESTING REVIEWED Recent Labs 01/24/24 1502 01/24/24 1829 01/25/24 0035 01/25/24 0557 01/25/24 0929 NA 134* 139 135 137 136 K 4.8 4.6 4.6 4.2 4.1 CL 104 107 105 107 105 CO2 16* 17* 17* 16* 15* BUN 24* 26* 28* 29* 30* CREATININE 2.56* 2.59* 2.90* 3.02* 3.18* Recent Labs 01/23/24 0506 01/23/24 1314 01/23/24 1638 01/24/24 0009 01/25/24 0035 WBC 8.8 6.3 7.9 9.5 10.0 HGB 14.4 9.3 8.6* 10.1* 8.8* 8.2* HCT 44.6 26.0* 30.7* 26.9* 26.2* MCV 85.0 85.2 85.8 87.1 91.0 PLT 195 76* 104* 97* 86* Lab Results Component Value Date LDLCALC 127 (H) 01/18/2024 CARDIAC TESTS TELEMETRY FINDINGS: AF with ventricular rate in low 100's bpm upto 140's. No other ectopy noted. EKG: Encounter Date: 01/17/24 ECG 12 lead Result Value Heart Rate 67 QRSD Interval 94 QT Interval 423 QTC Interval 448 P [place] 19 QRS [place] -32 T Wave [place] 10 HI Interval 130 Impression Sinus rhythm LVH by voltage ST elevation suggests acute pericarditis Tracing reviewed ECHOCARDIOGRAM: 01/17/24 TRANSTHORACIC ECHOCARDIOGRAM (TTE) COMPLETE (CONTRAST/BUBBLE/3D PRN) 01/18/2024 9:23 AM (Final) Interpretation Summary Left Ventricle: Left ventricle size is normal. Mildly increased wall thickness. Normal left ventricular systolic function. EF by 2D Simpsons Biplane is 74%. Normal wall motion. Diastolic dysfunction present with normal LVEF. Right Ventricle: Right ventricle size is normal. Normal systolic function. Aortic Valve: Mild (1+) regurgitation. Left Atrium: Left atrium is mildly dilated. Pulmonary Arteries: Pulmonary artery was not well visualized. Mild pulmonary hypertension present. No comparison record. Signed by: Rafita Fernandez MD on 01/18/2024 9:23 AM STRESS: No results found for this or any previous visit. HEART CATH: 01/17/24 CARDIAC PROCEDURE 01/18/2024 8:26 PM (Final) Conclusion NSTEMI due to 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 LM with 70% distal stenosis LAD with ostial and proximal 85% stenosis, 80% mid segment stenosis and 50% distal stenosis Ramus intermedius with an 80% proximal stenosis and 70% mid to distal segment stenoiss Left circumflex with an 80% mid segment stenosis RCA with 99% distal segment stenosis at the bifurcation to the RPDA and RPLV. 90% stenosis of proximal RPL and 100% TURBINATED BONE GRINDER of ostial RPDA--distal vessel filling by [id number] collaterals. Normal LVEDP; no aortic stenosis. Signed by: Nicholas Arriaga MD on 01/18/2024 8:26 PM ADDITIONAL TESTING REVIEWED === 01/17/24 === XR CHEST 1 VIEW - Impression - 1. Postoperative changes (CABG). 2. Chest tubes without pneumothorax. 3. Prominence of the central pulmonary vasculature consistent with mild congestive heart failure/fluid overload. Report Dictated on Electronically Signed By: Asher Santos MD Electronically Signed Date/Time: 01/25/2024 5:43 AM EDT LINUS Ruiz CNP DATE OF SERVICE: 01/25/2024 Critical Care Progress Note Name: Jorge Salamanca : 1945(78 y.o.) Admit Date: 01/17/2024 PCP: ERIC NICOLAS DO Subjective: Chief Complaint: Chief Complaint Patient presents with Chest Pain Interval History: No acute events overnight Awake, alert, up in chair CXR 01/24: IMPRESSION: 1. Postoperative changes (CABG). 2. Chest tubes without pneumothorax. 3. Prominence of the central pulmonary vasculature consistent with mild congestive heart failure/fluid overload. Review of Systems Constitutional: Negative for fever. Respiratory: Negative for cough and shortness of breath. Cardiovascular: Negative for chest pain. Gastrointestinal: Negative for abdominal pain, nausea and vomiting. Neurological: Negative for headaches. All other systems reviewed and are negative. Diet: Adult diet Regular; 5 carb choices (75 gm/meal) Medications: Scheduled Meds: acetaminophen, 1,000 mg, Oral, q8h amLODIPine, 2.5 mg, Oral, Daily aspirin, 81 mg, Oral, Daily chlorhexidine, 15 mL, Mouth/Throat, BID gabapentin, 300 mg, Oral, BID [Held by provider] heparin, 5,000 Units, SubCUTAneous, BID insulin glargine, 10 Units, SubCUTAneous, q24h insulin lispro, 0-6 Units, SubCUTAneous, TID WC levothyroxine, 100 mcg, Oral, qAM AC Lidocaine, 1 patch, Topical, Daily metoclopramide, 10 mg, IntraVENous, q6h metoprolol tartrate, 12.5 mg, Oral, BID mupirocin, , Nasal, BID pantoprazole, 40 mg, Oral, qAM AC polyethylene glycol (PEG) 3350, 17 g, Oral, Daily rosuvastatin, 40 mg, Oral, Daily senna-docusate sodium, 2 tablet, Oral, Nightly simethicone, 80 mg, Oral, 4x daily sodium chloride 0.9%, 10 mL, IntraVENous, 2 times per day sodium chloride 0.9%, 5-40 mL, IntraCATHeter, q8h Continuous Infusions: amiodarone, 1 mg/min, Last Rate: 1 mg/min (01/25/24 1104) Followed by amiodarone, 0.5 mg/min lactated ringers, 250 mL, Last Rate: Stopped (01/24/24 0306) sodium chloride, 20 mL/hr, Last Rate: 20 mL/hr (01/23/24 1511) Labs: CBC: Recent Labs 01/23/24 1638 01/24/24 0009 01/25/24 0035 WBC 7.9 9.5 10.0 HGB 10.1* 8.8* 8.2* HCT 30.7* 26.9* 26.2* PLT 104* 97* 86* BMP: Recent Labs 01/23/24 1638 01/24/24 0009 01/24/24 1502 01/25/24 0035 01/25/24 0557 01/25/24 0929 NA 139 142 < > 135 137 136 K 4.3 4.6 < > 4.6 4.2 4.1 CL 113* 112* < > 105 107 105 CO2 17* 15* < > 17* 16* 15* BUN 20 21* < > 28* 29* 30* CREATININE 1.94* 2.18* < > 2.90* 3.02* 3.18* GLUCOSE 135* 119* < > 166* 129* 164* CALCIUM 8.1* 8.3* < > 8.1* 8.4 8.7 CAION 4.40 4.30 -- -- -- 4.10* MG 2.9* 2.6* -- 2.4* -- 2.3 PHOS -- 3.6 -- 5.0* -- 4.9* < > = values in this interval not displayed. Ionized Calcium: Lab Results Component Value Date CAION 4.10 (L) 01/25/2024 CAION 4.30 01/24/2024 HEPATIC: Recent Labs 01/25/24 0035 01/25/24 0557 01/25/24 0929 AST 71* 72* 75* ALT 18 17 16 ALBUMIN 4.2 4.5 4.5 BILITOT 0.7 0.9 0.9 ALKPHOS 32* 39 51 LACTATE: No results for input(s): LACTATE in the last 72 hours. PROCALCITONIN: No results for input(s): PROCAL in the last 72 hours. CORTISOL: No results for input(s): CORTISOL in the last 72 hours. TSH: No results for input(s): TSH in the last 72 hours. TROPONIN: No results for input(s): TROPONINI in the last 72 hours. BNP: No results for input(s): BNP in the last 72 hours. INR: Recent Labs 01/23/24 1314 01/24/24 0009 INR 1.6* 1.1 BLOOD GAS: Recent Labs 01/23/24 1314 PHART 7.421 [id number] 30.8* PO2ART 301.7* [id number] 19.6* [id number] 99.1 Objective: Vitals: Temp (24hrs), Av.6 C (97.9 F), Min:36.2 C (97.2 F), Max:36.9 C (98.5 F) BP MAP 106/63 (01/25/24 1032) 77 (01/25/24 0800) Arterial BP MAP 133/51 (01/24/24 0530) 77 mmHg (01/24/24 0530) Temp 36.5 C (97.7 F) (01/25/24 1200) Pulse 114 (01/25/24 1032) Resp 19 (01/25/24 0823) SpO2 95 % (01/25/24 0823) Weight 83.5 kg (184 lb) (01/25/24 0556) BMI Body mass index is 29.7 kg/m . I/O: 01/23 0700 - 01/24 0659 In: 0 Out: 1856 [Urine:1526] Ventilator Settings: Resp Rate (Set): 12 Vt (Set, mL): 380 mL FiO2 (%): 50 % PEEP/CPAP (cm H2O): 8 cm H20 Inspiratory Time (sec): 0.9 sec PHYSICAL EXAM: General Appearance: [x]WDWN []Obese []Cachectic []Thin []ill Skin: Temperature [x]Warm []Cool Rash []Yes [x]No Tattoo(s) []Yes []No HEENT: Pupils round and react [x]Yes []No Sclera []Icteric [x]Non-Icteric Conjunctiva []Injected [x]Non-Injected Pinnae []Normal []Other Dentitian [][place] Teeth []Dentures []edentulous Oral Mucosa [x][employer] [x]Moist []Dry Oral ETT []Present [x]Absent Neck: Trachea midline [x]Yes []No Thyromegaly []Yes []No Crepitus []Present [x]Absent Jvd []Present []Absent Lungs: [x]Clear []Crackles []Wheezes []Rhonchi Respiratory effort []Labored [x]Non-Labored Heart: Rate []Regular []Irregular [x]Tachycardia []Bradycardia Rhythm []Regular [x]Irregular Murmur []Present [x]Absent Peripheral Edema []Present []Absent Abdomen: [x]Soft Bowel Sounds [x]Present []Absent []Tender [x]Non-Tender []Distended [x]Non-distended Hernia []Present []Absent Organomegaly []Present []Absent []unable to assess 2/2 body habitus []Scar Extremities: Cyanosis []Present [x]Absent HE ([x]RUE [x]RLE [x]LUE [x]LLE) Neurologic: [place] []Yes [x]No Corneal reflexes [x]Present []Absent Plantar reflexes []Up []Down []Absent Withdraws to tactile [x]Yes []No Follows Commands [x]Yes []No []Unresponsive to verbal [x]Cranial nerves grossly intact [x]Sensation grossly intact Psych: Alert [x]yes []no Oriented []x0 []x1 []x2 [x]x3 Affect [x]Normal []Flat []Agitated []Anxious [x]Calm []Sedated []NAD Assessment and Plan: Multivessel CAD, NSTEMI, 01/22 s/p CABG x 4 Atrial tachycardia Anemia, thrombocytopenia expected post op, 4T low probability HTN, HLD DM2, hypothyroidism CKD3b, ALEXANDER non-oliguric followed by nephrology On ASA, statin, lopressor 5mg IV x 1, amio bolus and drip Check EKG and electrolytes On [facility] for SUHAS graft Wean O2 as tolerated On lantus, SSI, levothyroxine On miralax, senokot-s, simethecone GI prophylaxis--PPI DVT prophylaxis--SCDs Nutrition--po as tolerated I have personally performed a face to face diagnostic evaluation on this patient today on 01/25/24. Labs, imaging studies, and electronic medical record notes on [facility] have been reviewed by me. This note reflects my history, exam and medical decision making. I have reviewed and agree with the care plan. Changes were made in the orders as necessary. ROS documentation was reviewed and negative unless otherwise stated in the HPI. My history, exam, assessment and plan are as above. Some elements copied from my notes, which have been updated where appropriate. All reflect current medical decision making from 01/25/24. Physical Exam listed was completed in entirely on 01/25/24 and is unchanged except where noted. Time spent for coordination of care: a subsequent visit: 50 minutes (Level III) Department of Internal Medicine Division of Endocrinology, Diabetes, & Metabolism Endocrinology Note Patient Name: Jorge Salamanca : 1945 AGE: 78 y.o. Room/Bed: [facility]105/T1105 A Admission Date: 01/17/2024 Visit Date: 01/25/2024 Reason for Endocrine Consult: Post Op Glycemic Management Provider/Team Requesting Consult: Dr Solorzano PCP: ERIC NICOLAS DO Outpt Mat Machine Operator: No ASSESSMENT: DM2 without usp use of insulin Steroid induced hyperglycemia HTN HLD CKD Hypothyroidism PLAN: Continue Lantus 10 units q24 hours Continue Humalog 0-6 tid SSI Continue home LT4 100mcg daily Decadron use in OR noted ICU goal <180 GMF goal <150 POCT BG ACHS Hypoglycemia management per protocol Carb controlled diet ANTICIPATED ENDOCRINE HOME GOING RECOMMENDATIONS: Optimized for Discharge from Endocrine standpoint: No Home Going Endocrine Rx Recommendations-- TBD; likely none Outpt Follow Up-- PCP SUBJECTIVE/HPI: CHIEF COMPLAINT: Chief Complaint Patient presents with Chest Pain Jorge Salamanca is a 78 year old male patient with a PMHx that includes HTN, HLD, T2DM and CKD. He presented to ED with complaints of chest pain and SOB. Symptoms had been intermittent since 2 days prior. He had chest pain previously that resolved with TUMS. The chest pain returned the following night but then radiated to back, arms and jaw. Symptoms did not resolve with TUMS this time which prompted his visit to the ED. Workup revealed slightly inverted T waves on EKG. Initial troponin was 0.19. He was admitted for suspected NSTEMI and taken to the bolt labeler. Cath showed multivessel CAD and Cardiothoracic Surgery was consulted for surgical evaluation. Agreeable to surgery, taken to OR on 01/23/[address] Johnson. 01/25/2024 Up in chair; reports diminished intake this AM: applesauce and eggs alone w/ iced tea Pt w/o questions/concerns re: insulin use at this time Reviewed rationale again for the same No further questions 01/24/2024 Insulin gtt protocol running; current gtt requirements 1-1.5 units/hr; BG trends stable w/ the same Diminished intake w/ lunch Has home meter/supplies to test BG OP if needed Reports gradual weight loss since his half-way in 2009 re: diet; losing around 5 pound a year. At his highest weight was ~230 pounds; 175 pounds this admission. PCP Adalberto'd oral DM agents ~October 2023 re: improved trends Reports A1c has been high 5s most recently History of Type 2 Diabetes Age at Onset: Early 60s Circumstances surrounding dx: screening Previous hospitalizations for DM: Denies Home DM Medication Regimen: Untreated Previously Used DM Agents: Metformin Glimepiride Injection Sites/Rotation: NA Missed Medication Doses: NA Medication Side Effects: NA Medication Cost Concerns: NA Glucose Monitoring CGM use: No BG Monitoring: has home glucometer Recent Hypoglycemia: Denies Hypoglycemic Treatment Plan: NA Trend Review: Lab Results Component Value Date HGBA1C 6.0 (H) 01/18/2024 No results found for: TSH Glucose Date/Time Value Ref Range Status 01/24/2024 06:27 PM 158 (H) 70 - 100 mg/dL Final 01/24/2024 05:09 PM 183 (H) 70 - 100 mg/dL Final 01/24/2024 02:16 PM 159 (H) 70 - 100 mg/dL Final 01/24/2024 12:21 PM 170 (H) 70 - 100 mg/dL Final 01/24/2024 10:21 AM 140 (H) 70 - 100 mg/dL Final 01/24/2024 08:07 AM 144 (H) 70 - 100 mg/dL Final Complication History Retinopathy: Denies Neuropathy: Denies HTN: Endorses HLD: Endorses Renal: Endorses- CKD; follows w/ Nephrology Cardiac: Endorses-CAD s/p CABG x4 (01/23/24); NSTEMI CVA: Denies VENKATA: Denies Gastroparesis: Denies H/o Pancreatitis: Denies Impaired Wound Healing: Denies Amputation: Denies Metabolic Dysfunction Associated Steatotic Liver Disease: Denies Hypoglycemic Unawareness: Denies Hypothyroidism Review of Systems ROS negative except for those mentioned in HPI. OBJECTIVE: Vitals: 01/25/24 0400 01/25/24 0500 01/25/24 0556 01/25/24 0600 BP: 104/50 109/50 111/66 BP Location: Right arm Patient Position: Lying Pulse: 75 75 80 Resp: 14 18 22 Temp: 36.7 C (98 F) TempSrc: Temporal SpO2: 100% 99% 94% Weight: 184 lb (83.5 kg) Height: Physical Exam Vitals reviewed. Constitutional: General: He is not in acute distress. Appearance: Normal appearance. He is ill-appearing. HENT: Head: Normocephalic. Cardiovascular: Rate and Rhythm: Rhythm irregular. Comments: 106 bpm per tele Pulmonary: Effort: Pulmonary effort is normal. No respiratory distress. Comments: 02 via NC; 96% spo2 Neurological: Mental Status: He is alert. Mental status is at baseline. Psychiatric: Mood and Affect: Mood normal. Judgment: Judgment normal. 24 hour intake/output: Intake/Output Summary (Last 24 hours) at 01/25/2024 0801 Last data filed at 01/25/2024 0400 Gross per 24 hour Intake 0 ml Output 1769 ml Net -1769 ml Diet: Adult diet Regular; 5 carb choices (75 gm/meal) Medications (as per EMR): HomeMeds: Current Outpatient Medications Medication Instructions amLODIPine (NORVASC) 5 mg, Oral, Daily gabapentin (NEURONTIN) 600 mg, Oral, 2 times daily levothyroxine (SYNTHROID, LEVOXYL) 100 mcg, Oral, Daily before breakfast metoprolol succinate XL (TOPROL-XL) 100 mg, Oral, Daily omega-3 (FISH OIL) 1,000 mg, Oral, Daily Scheduled Meds:acetaminophen, 1,000 mg, Oral, q8h amLODIPine, 2.5 mg, Oral, Daily aspirin, 81 mg, Oral, Daily chlorhexidine, 15 mL, Mouth/Throat, BID gabapentin, 300 mg, Oral, BID [Held by provider] heparin, 5,000 Units, SubCUTAneous, BID insulin glargine, 10 Units, SubCUTAneous, q24h insulin lispro, 0-6 Units, SubCUTAneous, TID WC levothyroxine, 100 mcg, Oral, qAM AC Lidocaine, 1 patch, Topical, Daily metoclopramide, 10 mg, IntraVENous, q6h metoprolol tartrate, 12.5 mg, Oral, BID mupirocin, , Nasal, BID pantoprazole, 40 mg, Oral, qAM AC polyethylene glycol (PEG) 3350, 17 g, Oral, Daily rosuvastatin, 40 mg, Oral, Daily senna-docusate sodium, 2 tablet, Oral, Nightly simethicone, 80 mg, Oral, 4x daily sodium chloride 0.9%, 10 mL, IntraVENous, 2 times per day sodium chloride 0.9%, 5-40 mL, IntraCATHeter, q8h Continuous Infusions:lactated ringers, 250 mL, Last Rate: Stopped (01/24/24 0306) sodium chloride, 20 mL/hr, Last Rate: 20 mL/hr (01/23/24 1511) PRN Meds:PRN medications: calcium gluconate, dextrose, dextrose, glucagon (rDNA), glucose, HYDROmorphone OR HYDROmorphone, ipratropium-albuterol, lactated ringers, magnesium hydroxide, magnesium sulfate OR magnesium sulfate, naloxone, oxyCODONE OR oxyCODONE, potassium chloride OR potassium chloride OR potassium chloride, potassium chloride CR, sodium chloride, sodium chloride 0.9%, sodium chloride 0.9% Diagnostic Workup: I reviewed pertinent Laboratory results, Radiographic results, and Other Clinical Notes at the time of today's encounter. Labs: No components found for: LABA1C No components found for: EAG Lab Results Component Value Date NA 137 01/25/2024 K 4.2 01/25/2024 CL 107 01/25/2024 CO2 16 (L) 01/25/2024 BUN 29 (H) 01/25/2024 CREATININE 3.02 (H) 01/25/2024 GLUCOSE 129 (H) 01/25/2024 CALCIUM 8.4 01/25/2024 Lab Results Component Value Date CHOL 180 01/18/2024 Lab Results Component Value Date TRIG 100 01/18/2024 Lab Results Component Value Date HDL 33 (L) 01/18/2024 Lab Results Component Value Date LDLCALC 127 (H) 01/18/2024 No results found for: VLDL Lab Results Component Value Date CHOLHDLRATIO 5 01/18/2024 No results found for: [id number] No results found for: TSH, S3ACEBP, B3WKSEF, THYROIDAB Radiology reportsas per the Radiologist Radiology: POCT ACT Result Date: 01/21/2024 Performed by: [facility], [address] [place] [address] CLIA ID: [id number] ECG 12 lead Sinus bradycardia Electronically Signed On 01-20-2024 18:31:49 EDT by Melina Bolaños Cardiac procedure Result Date: 01/18/2024 NSTEMI due to 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 LM with 70% distal stenosis LAD with ostial and proximal 85% stenosis, 80% mid segment stenosis and 50% distal stenosis Ramus intermedius with an 80% proximal stenosis and 70% mid to distal segment stenoiss Left circumflex with an 80% mid segment stenosis RCA with 99% distal segment stenosis at the bifurcation to the RPDA and RPLV. 90% stenosis of proximal RPL and 100% TURBINATED BONE GRINDER of ostial RPDA--distal vessel filling by [id number] collaterals. Normal LVEDP; no aortic stenosis. Transthoracic echocardiogram (TTE) complete with contrast, bubble, strain, and 3D PRN Result Date: 01/18/2024 Left Ventricle: Left ventricle size is normal. Mildly increased wall thickness. Normal left ventricular systolic function. EF by 2D Simpsons Biplane is 74%. Normal wall motion. Diastolic dysfunction present with normal LVEF. Right Ventricle: Right ventricle size is normal. Normal systolic function. Aortic Valve: Mild (1+) regurgitation. Left Atrium: Left atrium is mildly dilated. Pulmonary Arteries: Pulmonary artery was not well visualized. Mild pulmonary hypertension present. No comparison record. ECG 12 lead Sinus rhythm Atrial premature complexes Abnormal R-wave progression, early transition Repol abnrm suggests ischemia, lateral leads Electronically Signed On 01-18-2024 06:16:41 EDT by Jose Robledo XR chest 1 view Result Date: 01/17/2024 Patient Name: JORGE SALAMANCA : 1945 Exam Date/Time: 01/17/2024 23:47 Procedure: XR CHEST 1 VIEW Ordering Provider: ROBLEDO VISHNU Reason For Exam: acute chest pain CLINICAL INFORMATION: Chest pain. Portable view of the chest at 2340 hours is provided without comparison. FINDINGS: The cardiac silhouette and mediastinum are within normal limits. There are no focal infiltrates. However, tiny nodular densities are noted diffusely (miliary pattern). The visualized bones and soft tissues are grossly unremarkable. 1. No focal infiltrates. 2. Diffuse miliary pattern in the lung morrow. This is nonspecific but may indicate histoplasmosis among other entities. 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) Hyperlipemia Hypertension Past Surgical History: Past Surgical History: Procedure Laterality Date CARDIAC CATHETERIZATION Left 01/18/2024 CARDIAC CATHETERIZATION N/A 01/18/2024 Performed by Nicholas Arriaga MD at [facility] Cardiac Buffing And Polishing Wheel Repairer TONSILLECTOMY (HISTORICAL) Allergy(ies): Allergies Allergen Reactions Bee Venom Family History: Family History Problem Relation Name Age of Onset No Known Problems Brother No Known Problems Brother Bipolar disorder Sister Arthritis Sister Lung cancer Father Alzheimer's disease Mother Cancer Father Social History: Social History Tobacco Use Smoking status: Never Passive exposure: Current Smokeless tobacco: Never Tobacco comments: Quit smoking: smokes 3.5 packs daily Substance Use Topics Alcohol use: Not Currently Drug use: Never Portions of the information within this encounter were entered using an electronic dictation system. Best attempts were made to edit/proofread the information prior to note completion. Despite the review of information, some errors may remain. If there are questions related to the information contained within the note please contact the signing physician directly. I spent 15 minutes with the pt which involved coordination of care, medical evaluation, review of records, and/or counseling of the pt regarding his/her condition/disease state/prognosis on the date of this note. Associated attestation - Wero Sanchez MD - 01/26/2024 1:13 AM EDT I performed a history and physical examination of the patient. I have reviewed the patient's chart including pertinent history, medications, labs, radiology, and other reports. I reviewed the resident/HORTENCIA's note, agree with the documented findings and plan of care (with modifications noted if any), and discussed the management plan. Pt has been doing well. Ambulating. Eating well. He states that he had 2 apple sauces with his lunch tray today. No SOB. On amio drip. Adult diet Regular; 5 carb choices (75 gm/meal) Estimated Creatinine Clearance: 18.3 mL/min (A) (by C-G formula based on SCr of 3.48 mg/dL (H)). BP 101/54 (BP Location: Right arm, Patient Position: Lying) Pulse 60 Temp 36.4 C (97.6 F) (Temporal) Resp 12 Ht 5' 6 (1.676 m) Wt 184 lb (83.5 kg) SpO2 100% BMI 29.70 kg/m awake, alert, not in distress, RRR, chest incision intact, clear breath sounds, +chest tubes, abdomen soft, non-tender, no edema, no focal deficits, normal mood and affect. Dx: Type 2 DM, controlled, without long-term insulin use Stress hyperglycemia Hypothyroidism NSTEMI/CAD s/p CABG CKD 3b Plan: -continue Lantus 10 units daily and Humalog low dose SS -continue blood glucose monitoring -discussed postop hyperglycemia management and goals of therapy -patient will unlikely require any pharmacotherapy on discharge for DM -discussed importance of continued SMBG at home -continue levothyroxine 100 mcg daily -will follow Images from the original note were not included. Cardiothoracic Surgery/[facility] Progress Note PATIENT NAME: Jorge Salamanca DATE: 01/25/24 HPI: elliot Salamanca is a 78 year old male patient with a PMHx that includes HTN, HLD, T2DM and CKD. He presented to ED with complaints of chest pain and SOB. Symptoms had been intermittent since 2 days prior. He had chest pain previously that resolved with TUMS. The chest pain returned the following night but then radiated to back, arms and jaw. Symptoms did not resolve with TUMS this time which prompted his visit to the ED. Workup revealed slightly inverted T waves on EKG. Initial troponin was 0.19. He was admitted for suspected NSTEMI and taken to the bolt labeler. Cath showed multivessel CAD and Cardiothoracic Surgery was consulted for surgical evaluation. Agreeable to surgery, taken to OR on 01/23/[address] Johnson. Surgery/Procedure: 01/23/24: Dr. Johnson- CABG x4, BIMA's, LEVH, sternal plating, SHARMAINE Interval History: 01/25/24, POD# 2 VSS overnight, no Acute issues, Pain mod controlled, CT output moderate, CXR edematous Review of Systems Constitutional: Negative for diaphoresis, fatigue and fever. Respiratory: Negative for cough, shortness of breath and wheezing. Cardiovascular: Negative for chest pain, palpitations and leg swelling. Gastrointestinal: Negative for abdominal distention, constipation and diarrhea. Skin: Negative for color change, pallor and rash. Objective: CT output cc/24hrs: 330 UO cc/24hrs:1.5L Last BM Date: 01/17/24 Vitals: BP: 111/66, MAP (mmHg): 77, BP Method: Automatic Heart Rate: 80 Resp: 22 Temp: 36.7 C (98 F), Temp Source: Temporal BMI (Calculated): 29.71 Pacer Wires: Capped CXR: BMP: Recent Labs 01/23/24 1314 01/23/24 1638 01/24/24 0009 01/24/24 1502 01/24/24 1829 01/25/24 0035 01/25/24 0557 NA 138 139 142 < > 139 135 137 K 4.5 4.3 4.6 < > 4.6 4.6 4.2 CL 113* 113* 112* < > 107 105 107 CO2 19* 17* 15* < > 17* 17* 16* BUN 21* 20 21* < > 26* 28* 29* CREATININE 1.86* 1.94* 2.18* < > 2.59* 2.90* 3.02* CALCIUM 8.7 8.1* 8.3* < > 8.6 8.1* 8.4 MG 3.9* 2.9* 2.6* -- -- 2.4* -- PHOS 2.7 -- 3.6 -- -- 5.0* -- < > = values in this interval not displayed. CBC: Recent Labs 01/23/24 1638 01/24/24 0009 01/25/24 0035 WBC 7.9 9.5 10.0 HGB 10.1* 8.8* 8.2* HCT 30.7* 26.9* 26.2* PLT 104* 97* 86* MCV 85.8 87.1 91.0 RDW 13.7 14.0 14.2 INR: Recent Labs 01/23/24 1314 01/24/24 0009 INR 1.6* 1.1 Physical Exam Cardiovascular: Rate and Rhythm: Normal rate and regular rhythm. Heart sounds: Normal heart sounds. No murmur heard. No friction rub. Pulmonary: Effort: Pulmonary effort is normal. Skin: General: Skin is warm and dry. Capillary Refill: Capillary refill takes less than 2 seconds. Findings: Bruising and ecchymosis present. Neurological: Mental Status: He is alert. Psychiatric: Behavior: Behavior is cooperative. Assessment: Multivessel CAD s/p CABG NSTEMI CKD HTN Hyperlipidemia Post operative Pulm Management: Normal Post-operative Course Post-operative Atrial Fibrillation: []Yes [x] No Plan: Interventions Keep Ct one more day too much output Ott cath leave in place for I&O accuracy Hold Heparin DVT PLT 86 CXR aspirin and statin. Amlodipine 2.5mg daily for SUHAS graft. Hold BB until BP stable on amlodipine. Home meds: levothyroxine and gabapentin. Gastric bubble has resolved Bowel regimen. Continue current pain regimen, no toradol d/t ALEXANDER on CKD. Daily labs and CXR. OK to advance diet slowly. Out of bed, progressive mobility. Wean O2 as able, goal SpO2>92%. Consults: Endocrinology following. Optimized for Discharge from Endocrine standpoint: No Home Going Endocrine Rx Recommendations-- TBD; likely none Outpt Follow Up-- PCP PT/OT: Will need assessed. Pulmonary hygiene: IS and Acapella GI prophy: PO protonix DVT prophy:TEDs, SCDs, and not on due to risk of bleeding TCC/Discharge Planning: TBD Central Line: [x]Yes [] No Arterial Line: []Yes [x] No Ott: [x]Yes [] No Restraints: []Yes [x] No Patient discussed and plan of day developed from multidisciplinary rounds between Cardiothoracic Surgery (Cardiothoracic Surgeon, HORTENCIA) and Critical Care Attending Critical Care time spent 35 minutes. The time involved in the performance of this care was exclusive of separately billable procedures, teaching time and treating other patients. The time was spent personally by the attending physician for the following activities: examination of the patient, ordering and/or performing treatment, reviewing the laboratory and radiographic studies, and if applicable, ventilator management and blood gas interpretation. Cardiac Core Medications: ASA, Statin, and start BB today EF: 74% Blood Conservation: None noted in post-operative period Art Display Maker: Martha Images from the original note were not included. PHYSICAL THERAPY [facility] Initial Evaluation Name/MRN: Jorge Salamanca ([id number]) Evaluation Date: 01/24/2024 Date of : 1945 Admission Date: 01/17/2024 11:29 PM Age: 78 y.o. Room/Bed: T1-105/T1-105 A Discharge Recommendation: IP Rehab Equipment Needed: (TBD; has FWW and rollator at home) Assessment IMPRESSION: Pt is a 78 year old patient admitted for NSTEMI and s/p CABG x4. Pt, prior to admission, was living at home. Per RN/Pt, 4 days ago. Pt reports plans to stay with sister after surgery (who is a RN). Pt answers questions appropriately but appears slightly confused at times. Will make random jokes that don't apply to situation. Pt is min assist x1 throughout. Pt only able to ambulate 11 steps due to fatigue and pain. Pt is not safe to go home. Recommend IP rehab. Admitting Diagnosis: NSTEMI Prognosis: fair Performance Deficits /Impairments: Decreased Functional Mobility, Decreased ADL status, Decreased Strength, Decreased Safety Awareness, Decreased Endurance, Decreased Balance, and Decreased ROM Decision Making: Medium Complexity Subjective Pt agreeable for therapy. Pt reports high pain but unable to specifically rate chest incisional pain. Pt gets off topic at times. 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) Hyperlipemia Hypertension Past Surgical History: Past Surgical History: Procedure Laterality Date CARDIAC CATHETERIZATION Left 01/18/2024 CARDIAC CATHETERIZATION N/A 01/18/2024 Performed by Nicholas Arriaga MD at [facility] Cardiac Buffing And Polishing Wheel Repairer TONSILLECTOMY (HISTORICAL) Admission Diagnosis: Patient Active Problem List Diagnosis Date Noted NSTEMI (non-ST elevated myocardial infarction) ([facility]) 01/18/2024 Mixed hyperlipidemia 01/18/2024 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) 01/18/2024 CKD stage 3a, GFR 45-59 ml/min ([facility]) 01/18/2024 Essential hypertension 01/18/2024 Hematuria, microscopic 01/09/2019 Medical Precautions: No active isolations Proper PPE donned/doffed in accordance with facility standards. Fall Risk: Castro Fall Risk Score: 50 (High Risk) Precautions/Restrictions: Sternal Precautions: No Pushing, No Pulling, No Lifting Greater Than 10 lbs Lines/Drains/Airways: chest tube 2x, catheter, 2L of O2, telemetry, IV Family/Caregiver Present: none Overall Cognitive Status: WFL Overall Orientation Status: Oriented x4 Vision: wears glasses at all times and and are being used during the eval Hearing: normal Social/Functional History Due to recent passing of pt's , pt lives alone. Plan is for patient to stay with sister in 1 story condo with 8 steps to enter (no handrail). Pt is unclear if she has tub/shower or walkin shower. Pt has FWW and rollator at home. Prior Level of Function ADL Assistance: Independent Ambulation Assistance: Independent Transfer Assistance: Independent Objective Lower Extremity Assessment AROM: WFL PROM: Not assessed this session Strength: WFL 3+/5 on BLE Sensation: WFL Balance: Balance During Session: Posture: fair Sitting - Static: Contact Guard Sitting - Dynamic: Contact Guard Standing - Static: Min Assist Standing - Dynamic: Min Assist Bed Mobility: NT; in chair upon arrival. Transfers Sit to stand: Min Assist Stand to sit: Min Assist Difficulty with sit to stand transfers. Poor ability to rock back/forth to stand. Ambulation Ambulation 1 Assistive device(s) used: [place] Used [employer] Equipment Assist level: Min Assist Distance (ft): 11 feet x1 Quality of gait: path deviations, needs assist turning nejudyie Outcome Measures AM-PAC How much HELP from another person do you currently need Turning from your back to your side while in a flat bed without using bedrails?: A Little Moving from lying on your back to sitting on the side of a flat bed without using bedrails?: A Little Moving to and from a bed to a chair (including a wheelchair)?: A Little Standing up from a chair using your arms (wheelchair or bedside chair)?: A Little Walking in a hospital room?: A Little Stair climbing assessed?: No AM-PAC Inpatient Mobility Raw Score (No Stairs) : 15 JH-HLM JH-HLM Score: Walked 10 steps or more (i.e. walked to restroom) Plan Pt would benefit from skilled acute PT services to address Strengthening, ROM, Gait Training, Balance Training, Functional Mobility Training, Endurance Training, Safety Education and Training, Stair Training, Equipment Evaluation/Education, and Neuromuscular Re-Education Training. Frequency: 3x/week for 4 weeks Barriers: Pain, Lower extremity weakness, Decreased endurance, and Limited safety awareness Safety/Education Safety Safety Devices in place: call light within reach, left in chair, patient at risk for falls, nurse notified, and RN savi hankins session. Reports SQUEEGEE FINISHER for CTS saw patient and thought left lip issue is from ETT. Restraints: N/A Education Education Given To: patient Education Provided: PT Role, PT Goals, Plan of Care, Home Exercise Program, and Precautions Education Method: Verbal Barriers to Learning: None Education Outcome: Unable to Demonstrate and Continued Education Needed Goals Patient Stated Goal: to live 9-10 more years Encounter Problems Encounter Problems (Active) Cardiac Patient will perform bed mobility with independence in order to improve independence and prepare for out of bed mobility. Start: 01/24/24 Expected End: 02/21/24 Patient will complete sit to stand transfer with independence to none in order to improve safety and prepare for out of bed mobility. Start: 01/24/24 Expected End: 02/21/24 Patient will ambulate 300 feet or ambulate 5 minutes with independence with RPE of 14 or lower. Start: 01/24/24 Expected End: 02/21/24 Patient will ascend and descend 8 # stairs with independence rail for balance only. Start: 01/24/24 Expected End: 02/21/24 Patient will be independent with P&C exercises. Start: 01/24/24 Expected End: 02/21/24 Patient will be independent with managing secretions and home walking program. Start: 01/24/24 Expected End: 02/21/24 Pain - Adult Encounter Problems (Resolved) Pain - Adult Therapy Time Individual Co-treatment Time In 0941 Time Out 1014 Minutes 33 Timed Code Treatment Minutes: 9 Minutes (1 unit of TP) Elliot Iglesias PT Patient's Physical Therapy Plan of Care supervision is transferred to a [facility] Services Physical Therapist. Goals and/or treatment plan was established in collaboration with patient/family/other representatives. Images from the original note were not included. OCCUPATIONAL THERAPY [facility] Name/MRN: Jorge Salamanca ([id number]) Date: 01/24/2024 Attempt Note Attempted OT eval. Per PT attempt note earlier this morning, pt presenting with neurological deficits. RN to inform MD. Will continue to monitor. ~Chloe Sung MS, OTR/L Images from the original note were not included. [facility] [place] [facility] [place] NAME: Jorge Salamanca DATE OF : 1945 CHIEF COMPLAINT NSTEMI ASSESSMENT AND PLAN NSTEMI MVCAD s/p CABG Stable without angina. VS and labs acceptable. Review CXR imaging, he has some congestion, patient is not hypoxic or SOB, would continue to monitor. Would resume BB and Plavix (NSTEMI) when hemodynamically stable. Continue GDMT: lifelong aspirin and rosuvastatin. Will plan for cardiac rehab at discharge when cleared by CTS. Continue early ambulation and IS. Lifestyle modification: Follow a Mediterranean (low fat/low cholesterol) diet. Exercise for 30 minutes a day 3 or more days a week. Weight loss. Avoid caffeine, alcohol and tobacco products. Reduce stress. Hypertension Blood pressure is soft, but stable off of pressors. BP Goal <120/80. Continue amlodipine. Recommend a DASH diet. Continue to monitor and report persistent HTN. Hyperlipidemia Last LDL 127, above recommended goal of <55 mg/dL per ESC guidelines. Last LFTs were elevated, would continue statin for now and repeat LFTs to reassess. Continue rosuvastatin. (Follow Mediterranean diet (low fat/low cholesterol). CKD stage 111b Baseline Cr. 1.9-2.0. Last Cr. 2.18. His renal fx is fairly stable. Avoid nephrotoxic medications. Blood loss anemia H&H low, but stable. DM2 Last HgbA1c was 6%, well controlled. Continue current therapy. Follow ADA diet. Endocrine is following. SUBJECTIVE Jorge Salamanca is an 78 y.o. male with past medical history significant for hypertension, hyperlipidemia, CKD stage IIIb, DM2, and overweight. He presented to the hospital with hx of KLINE, chest pressure radiating to arms not relieved by Tums ( recently ). His troponin peaked at 2.250, proBNP >1300. EKG SR with PAC, abnormal repolarization in lateral leads. His TTE show normal LVEF 75% with mild AVR. He underwent uncomplicated LHC with Dr. Arriaga which showed MVCAD. CTS c/s. He had CABG x [address] Johnson on 01/23/24. Today POD1 patient is up to chair. He is having some surgical incision pain. He had pain when walking in [place], but breathing was good. He feels a little confused. He said he has trouble remembering his finances and can't tell if it is 12 noon or 12 am. He hasn't ate today, but he is thirsty. Denies any chest pain, chest tightness, palpitations, dizziness, lightheadedness, presyncope or syncope. Denies any SOB, edema, orthopnea, PND, bendopnea, fatigue, or weight changes. Denies myalgia, nausea, vomiting, diarrhea, dysuria, fever, or chills. No acute events overnight . Allergies Allergen Reactions Bee Venom OBJECTIVE Vitals: 01/24/24 0626 01/24/24 0700 01/24/24 0754 01/24/24 0800 BP: 128/66 107/58 BP Location: Patient Position: Pulse: 88 79 Resp: 17 25 Temp: 36.5 C (97.7 F) TempSrc: SpO2: 90% 97% Weight: Height: 5' 6 (1.676 m) Intake/Output Summary (Last 24 hours) at 01/24/2024 0948 Last data filed at 01/24/2024 0800 Gross per 24 hour Intake 5741 ml Output 2082 ml Net 3659 ml Physical Exam Constitutional: General: He is not in acute distress. Appearance: Normal appearance. Neck: Vascular: No JVD. Cardiovascular: Rate and Rhythm: Normal rate and regular rhythm. Pulses: Normal pulses. Heart sounds: Normal heart sounds. No murmur heard. Pulmonary: Effort: Pulmonary effort is normal. Breath sounds: Normal breath sounds. No rales. Comments: Bilateral CT draining serosanguinous Chest: Comments: Mid sternal incision is well approximated, dry without drainage. Genitourinary: Comments: Ott catheter in place. Skin: General: Skin is warm and dry. Neurological: Mental Status: He is alert and oriented to person, place, and time. Psychiatric: Mood and Affect: Mood normal. Speech: Speech normal. MEDICATIONS acetaminophen, 1,000 mg, Oral, q8h amLODIPine, 2.5 mg, Oral, Daily aspirin, 81 mg, Oral, Daily ceFAZolin, 2,000 mg, IntraVENous, q8h chlorhexidine, 15 mL, Mouth/Throat, BID gabapentin, 300 mg, Oral, BID [Held by provider] heparin, 5,000 Units, SubCUTAneous, BID levothyroxine, 100 mcg, Oral, qAM AC Lidocaine, 1 patch, Topical, Daily metoclopramide, 10 mg, IntraVENous, q6h mupirocin, , Nasal, BID [START ON 01/25/2024] pantoprazole, 40 mg, Oral, qAM AC polyethylene glycol (PEG) 3350, 17 g, Oral, Daily rosuvastatin, 40 mg, Oral, Daily senna-docusate sodium, 2 tablet, Oral, Nightly simethicone, 80 mg, Oral, 4x daily sodium chloride 0.9%, 10 mL, IntraVENous, 2 times per day sodium chloride 0.9%, 5-40 mL, IntraCATHeter, q8h INFUSION MEDICATIONS insulin regular, 1-50 Units/hr, Last Rate: 1 Units/hr (01/24/24 0810) lactated ringers, 250 mL, Last Rate: Stopped (01/24/24 0306) nitroglycerin, 5-300 mcg/min, Last Rate: 5 mcg/min (01/23/24 1510) sodium chloride, 20 mL/hr, Last Rate: 20 mL/hr (01/23/24 1511) LAB VALUES AND TESTING REVIEWED Recent Labs 01/22/24 0447 01/23/24 0506 01/23/24 1314 01/23/24 1638 01/24/24 0009 NA 135 138 138 139 142 K 4.3 4.0 4.5 4.3 4.6 CL 110* 106 113* 113* 112* CO2 20* 23 19* 17* 15* BUN 22* 25* 21* 20 21* CREATININE 1.90* 2.04* 1.86* 1.94* 2.18* Recent Labs 01/22/24 0447 01/23/24 0506 01/23/24 1314 01/23/24 1638 01/24/24 0009 WBC 6.9 8.8 6.3 7.9 9.5 HGB 13.0 14.4 9.3 8.6* 10.1* 8.8* HCT 39.8* 44.6 26.0* 30.7* 26.9* MCV 85.0 85.0 85.2 85.8 87.1 PLT 144 195 76* 104* 97* Lab Results Component Value Date LDLCALC 127 (H) 01/18/2024 CARDIAC TESTS TELEMETRY FINDINGS: NSR with ventricular rate 70 bpm, no ectopy noted. EKG: Encounter Date: 01/17/24 ECG 12 lead Result Value Heart Rate 83 QRSD Interval 92 QT Interval 401 QTC Interval 471 P [place] 48 QRS [place] -35 T Wave [place] 60 HI Interval 179 Impression Sinus rhythm LVH by voltage Electronically Signed On 01-24-2024 09:36:58 EDT by Sher Patel Tracing reviewed ECHOCARDIOGRAM: 01/17/24 TRANSTHORACIC ECHOCARDIOGRAM (TTE) COMPLETE (CONTRAST/BUBBLE/3D PRN) 01/18/2024 9:23 AM (Final) Interpretation Summary Left Ventricle: Left ventricle size is normal. Mildly increased wall thickness. Normal left ventricular systolic function. EF by 2D Simpsons Biplane is 74%. Normal wall motion. Diastolic dysfunction present with normal LVEF. Right Ventricle: Right ventricle size is normal. Normal systolic function. Aortic Valve: Mild (1+) regurgitation. Left Atrium: Left atrium is mildly dilated. Pulmonary Arteries: Pulmonary artery was not well visualized. Mild pulmonary hypertension present. No comparison record. Signed by: Rafita Fernandez MD on 01/18/2024 9:23 AM HEART CATH: 01/17/24 CARDIAC PROCEDURE 01/18/2024 8:26 PM (Final) Conclusion NSTEMI due to 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 LM with 70% distal stenosis LAD with ostial and proximal 85% stenosis, 80% mid segment stenosis and 50% distal stenosis Ramus intermedius with an 80% proximal stenosis and 70% mid to distal segment stenoiss Left circumflex with an 80% mid segment stenosis RCA with 99% distal segment stenosis at the bifurcation to the RPDA and RPLV. 90% stenosis of proximal RPL and 100% TURBINATED BONE GRINDER of ostial RPDA--distal vessel filling by [id number]-hemoi collaterals. Normal LVEDP; no aortic stenosis. Signed by: Nicholas Arriaga MD on 01/18/2024 8:26 PM ADDITIONAL TESTING REVIEWED === 01/17/24 === XR CHEST 1 VIEW - Impression - Bibasilar opacities may reflect atelectasis and/or infiltrate. Multiple small calcified and noncalcified nodules (refer to CT CHEST 01/19/2024). Postoperative changes (CABG). Support devices. Report Dictated on Electronically Signed By: Gi Alston MD Electronically Signed Date/Time: 01/24/2024 7:25 AM EDT LINUS Ruiz CNP DATE OF SERVICE: 01/24/2024 Physical Therapy Evaluation and Treatment Order Received. Attempted evaluation. Pt is noted to have asymmetrical smile and swelling on left side of lips. Pt is able to smile equally, raise eyebrows equally, lift arms evenly. Pt reports numbness on left side lips/cheek. RN (savi) notified and will inform MD. Will hold and continue to follow Images from the original note were not included. Cardiothoracic Surgery/[facility] Progress Note PATIENT NAME: Jorge Salamanca DATE: 01/24/24 HPI: Jorge Salamanca is a 78 year old male patient with a PMHx that includes HTN, HLD, T2DM and CKD. He presented to ED with complaints of chest pain and SOB. Symptoms had been intermittent since 2 days prior. He had chest pain previously that resolved with TUMS. The chest pain returned the following night but then radiated to back, arms and jaw. Symptoms did not resolve with TUMS this time which prompted his visit to the ED. Workup revealed slightly inverted T waves on EKG. Initial troponin was 0.19. He was admitted for suspected NSTEMI and taken to the bolt labeler. Cath showed multivessel CAD and Cardiothoracic Surgery was consulted for surgical evaluation. Agreeable to surgery, taken to OR on 01/23/[address] Johnson. Surgery/Procedure: 01/23/24: Dr. Johnson- CABG x4, BIMA's, LEVH, sternal plating, SHARMAINE Interval History: 01/24/24, POD# 01: Afebrile, NSR on tele, BP stable off of pressor support, extubated post-op and now on NC. Low dose nitroglycerin gtt running for SUHAS graft. Pain present but medications make tolerable. No nausea or vomiting noted. Current IV Drips: Insulin- 1unit/hr Nitroglycerin- 5mcg/kg/min A-line: Arterial Line BP 1: 133/51 Invasive Hemodynamic Monitoring Blood Temperature: 37.6 C (99.7 F) PAP: 41/16 PAP (Mean): 26 mmHg CVP (mmHg): 9 mmHg CO (L/min): (S) 4.88 L/min CI (L/min/m2): (S) 2.58 L/min/m2 SVR (dyne*sec)/cm5: (S) 983 (dyne*sec)/cm5 Review of Systems Constitutional: Positive for fatigue. Negative for chills, diaphoresis and fever. Respiratory: Negative for cough, shortness of breath and wheezing. Cardiovascular: Negative for palpitations and leg swelling. Gastrointestinal: Negative for abdominal distention, abdominal pain, nausea and vomiting. Neurological: Negative for dizziness and light-headedness. Objective: CT output cc/24hrs: 825 UO cc/24hrs: 1,155 Last BM Date: 01/17/24 Vitals: BP: 107/58, MAP (mmHg): 74, BP Method: Arterial line Heart Rate: 79 Resp: 25 Temp: 37.6 C (99.7 F), Temp Source: Core BMI (Calculated): 28.34 BMP: Recent Labs 01/23/24 0506 01/23/24 1314 01/23/24 1638 01/24/24 0009 NA 138 138 139 142 K 4.0 4.5 4.3 4.6 CL 106 113* 113* 112* CO2 23 19* 17* 15* BUN 25* 21* 20 21* CREATININE 2.04* 1.86* 1.94* 2.18* CALCIUM 8.5 8.7 8.1* 8.3* MG 2.0 3.9* 2.9* 2.6* PHOS 4.1 2.7 -- 3.6 CBC: Recent Labs 01/23/24 1314 01/23/24 1638 01/24/24 0009 WBC 6.3 7.9 9.5 HGB 9.3 8.6* 10.1* 8.8* HCT 26.0* 30.7* 26.9* PLT 76* 104* 97* MCV 85.2 85.8 87.1 RDW 13.7 13.7 14.0 INR: Recent Labs 01/23/24 1314 01/24/24 0009 INR 1.6* 1.1 Physical Exam Vitals reviewed. Constitutional: General: He is not in acute distress. Appearance: He is not ill-appearing or diaphoretic. Neck: Comments: Central line. Cardiovascular: Rate and Rhythm: Normal rate and regular rhythm. Pulses: Normal pulses. Heart sounds: No murmur heard. Pulmonary: Effort: Pulmonary effort is normal. Breath sounds: Rhonchi present. No wheezing or rales. Abdominal: General: There is no distension. Palpations: Abdomen is soft. Tenderness: There is no abdominal tenderness. Comments: Chest tubes. Genitourinary: Comments: Ott. Musculoskeletal: General: No swelling. Skin: General: Skin is warm and dry. Capillary Refill: Capillary refill takes less than 2 seconds. Findings: Bruising present. Comments: Surgical incisions without redness, warmth or drainage. Neurological: General: No focal deficit present. Mental Status: He is alert and oriented to person, place, and time. Assessment: Multivessel CAD s/p CABG NSTEMI CKD HTN Hyperlipidemia Post operative Pulm Management: Normal Post-operative Course Post-operative Atrial Fibrillation: []Yes [x] No Acute blood loss anemia/consumptive thrombocytopenia Plan: Remove [place] and arterial line. Chest tubes to water seal once out of bed. Start aspirin and statin. Amlodipine 2.5mg daily for SUHAS graft. -Will titrate to 5mg if BP can tolerate. -Turn nitroglycerin gtt off 2 hours after first dose of amlodipine. Hold off on BB until BP stable on amlodipine. Home meds: levothyroxine and gabapentin. Gastric bubble noted on CXR. -Denies nausea and vomiting, no pain in abdomen. -Start simethicone and reglan, consider suppositories. -KUB later today. -If nauseated or vomits, will place NG tube for decompression. Bowel regimen. Continue current pain regimen, no toradol d/t ALEXANDER on CKD. Daily labs and CXR. -PRN electrolyte repletion protocols. Will plan to re-check BMP later this AM. -Monitor creatinine and bicarb. OK to advance diet slowly. Out of bed, progressive mobility. Wean O2 as able, goal SpO2>92%. Consults: Endocrinology following. PT/OT: Will need assessed. Pulmonary hygiene: IS and Acapella GI prophy: PO protonix DVT prophy:TEDs, SCDs, and not on due to risk of bleeding TCC/Discharge Planning: TBD Central Line: [x]Yes [] No Arterial Line: [x]Yes [] No Ott: [x]Yes [] No Restraints: []Yes [x] No Patient discussed and plan of day developed from multidisciplinary rounds between Cardiothoracic Surgery (Cardiothoracic Surgeon, HORTENCIA) and Critical Care Attending Critical Care time spent 35 minutes. The time involved in the performance of this care was exclusive of separately billable procedures, teaching time and treating other patients. The time was spent personally by the attending physician for the following activities: examination of the patient, ordering and/or performing treatment, reviewing the laboratory and radiographic studies, and if applicable, ventilator management and blood gas interpretation. Cardiac Core Medications: ASA, Statin, and No BB due to hypotension EF: 74% Blood Conservation: None noted in post-operative period Art Display Maker: Associated attestation - Bruce Scott MD - 01/24/2024 1:56 PM EDT I have personally performed a face to face diagnostic evaluation on this patient today on 01/24/24. Labs, imaging studies, and electronic medical record notes on [facility] have been reviewed by me. This note documented and discussed by the []senior loan officer []Fellow [x] HORTENCIA reflects my history, exam and medical decision making. I have reviewed and agree with the care plan. Changes were made in the orders as necessary. ROS documentation was reviewed and negative unless otherwise stated in the HPI. My history, exam, assessment and plan are as follows: Some elements copied from my notes, which have been updated where appropriate. All reflect current medical decision making from 01/24/24. Physical Exam listed was completed in entirely on 01/24/24 and is unchanged except where noted. Pt no longer critical care Time spent for coordination of care: a subsequent visit: 50 minutes (Level III) In chair, working with physical therapy Heart RRR Lungs anteriorly clear, expected SOB with PT Abd distended, soft Multivessel CAD, NSTEMI, 01/22 s/p CABG x 4 Anemia, thrombocytopenia expected post op HTN, HLD DM2, hypothyroidism CKD3b ASA, statin Off nipride, on Norvasc for SUHAS graft Pain control-- lidocaine patch, prn IV dilaudid and oral oxy IR On levothyroxine On gabapentin Bowel regimen with miralax, senokot-s, simethicone Update: Pt tolerated SBT, extubated, no resp distress, no stridor. Ongoing ICU care Images from the original note were not included. [facility] [place] [facility] CCU PROGRESS NOTE Patient Name: Jorge Salamanca : 1945 Subjective: Jorge Salamanca is a 78 y.o. male with a history of HTN, HLD, type 2 DM, CKD stage 3B who presents now for evaluation of chest pain and dyspnea and noted to have elevation of troponins. He says he noticed dyspnea with exertion 2 days ago while walking to [facility] to visit his who is an inpatient there. He then had chest pain while in bed that night which was relieved with TUMS. The next day he was more tired and when he went to bed, he again had chest pain radiating into his back and arms. His symptoms did not resolve with TUMS so he came to the [facility] ER. His Tn of 2. LHC revealed MVCAD. Echo - EF 74% WNL. Patient was transferred from [facility] to [facility] for CABG evaluation. Interval History: Patient not seen this morning as he had already been taken down for CABG. Cr. 2.04 today, patient baseline noted to be ~ 1.8. Nephrology following to manage CKD3b in setting of upcoming CABG. Review of Systems: Constitutional: Negative for fever, chills Respiratory: Negative for apnea, cough, choking, chest tightness, shortness of breath, wheezing and stridor. Cardiovascular: Negative for chest pain and shortness of breath Gastrointestinal: Negative for nausea, vomiting, abdominal pain, diarrhea and blood in stool. Neurological: Negative for dizziness, tremors, seizures, syncope. Psychiatric/Behavioral: Negative for behavioral problems, self-injury and dysphoric mood. Inpatient Medications: Scheduled Meds:aspirin, 81 mg, Oral, Daily atorvastatin, 80 mg, Oral, Daily chlorhexidine, , Topical, See admin instructions gabapentin, 300 mg, Oral, BID levothyroxine, 100 mcg, Oral, qAM AC metoprolol tartrate, 25 mg, Oral, BID pantoprazole, 20 mg, Oral, qAM AC Continuous Infusions: PRN Meds used in the last 24hr: Heparin Objective: Physical Examination: BP 119/66 Pulse 54 Temp 36.4 C (97.5 F) (Temporal) Resp 18 Ht 5' 6 (1.676 m) Wt 176 lb 1.6 oz (79.9 kg) SpO2 95% BMI 28.42 kg/m Intake/Output Summary (Last 24 hours) at 01/23/2024 0634 Last data filed at 01/23/2024 0514 Gross per 24 hour Intake 623 ml Output 1400 ml Net -777 ml Physical Exam Constitutional: No distress. well nourished. well hydrated Psychiatric: A &O x 3. Medical insight good NMT: Oral mucosa is pink and moist Neck: no JVD. Respiratory: Lungs are clear Cardiac exam: Rhythm: RRR ; Normal S1 and S2 Murmur: no Other: No rub; S4 gallop Vasc: Peripheral pulses 2+ and equal Abdomen: BS+, soft, NT Extremities: no LE edema Skin: Warm to touch and well perfused Pertinent Labs: BMP: Lab Results Component Value Date NA 138 01/23/2024 K 4.0 01/23/2024 CL 106 01/23/2024 CO2 23 01/23/2024 BUN 25 (H) 01/23/2024 CREATININE 2.04 (H) 01/23/2024 GLUCOSE 123 (H) 01/23/2024 CALCIUM 8.5 01/23/2024 MG 2.0 01/23/2024 PHOS 4.1 01/23/2024 CBC: Lab Results Component Value Date WBC 8.8 01/23/2024 HGB 14.4 01/23/2024 HCT 44.6 01/23/2024 MCV 85.0 01/23/2024 PLT 195 01/23/2024 Cardiac profile: CK Date Value Ref Range Status 01/18/2024 157 30 - 170 U/L Final CKMB Date Value Ref Range Status 01/18/2024 8.0 (H) 0.0 - 4.4 ng/mL Final TROPONIN I Date Value Ref Range Status 01/19/2024 1.940 (HH) <0.034 ng/mL Final 01/18/2024 2.250 (HH) <0.034 ng/mL Final 01/18/2024 2.165 (HH) <0.034 ng/mL Final 01/18/2024 1.022 (HH) <0.034 ng/mL Final 01/17/2024 0.193 (HH) <0.034 ng/mL Final Coagulation: No results found for: INR, PTT Lipid panel: Lab Results Component Value Date CHOL 180 01/18/2024 HDL 33 (L) 01/18/2024 TRIG 100 01/18/2024 Other: Lab Results Component Value Date HGBA1C 6.0 (H) 01/18/2024 Chest Imaging: CXR: === 01/17/24 === XR CHEST 1 VIEW - Impression - 1. No focal infiltrates. 2. Diffuse miliary pattern in the lung morrow. This is nonspecific but may indicate histoplasmosis among other entities. Report Dictated on Electronically Signed By: Asher Santos MD Electronically Signed Date/Time: 01/17/2024 11:51 PM EDT Cardiac Studies: Telemetry findings reviewed: ECG: Encounter Date: 01/17/24 ECG 12 lead Result Value Heart Rate 52 QRSD Interval 93 QT Interval 480 QTC Interval 448 P [place] 37 QRS [place] -5 T Wave [place] -13 HI Interval 159 Impression Sinus bradycardia LVH by voltage Borderline T abnormalities, inferior leads Echo: 01/17/24 TRANSTHORACIC ECHOCARDIOGRAM (TTE) COMPLETE (CONTRAST/BUBBLE/3D PRN) 01/18/2024 9:23 AM (Final) Interpretation Summary Left Ventricle: Left ventricle size is normal. Mildly increased wall thickness. Normal left ventricular systolic function. EF by 2D Simpsons Biplane is 74%. Normal wall motion. Diastolic dysfunction present with normal LVEF. Right Ventricle: Right ventricle size is normal. Normal systolic function. Aortic Valve: Mild (1+) regurgitation. Left Atrium: Left atrium is mildly dilated. Pulmonary Arteries: Pulmonary artery was not well visualized. Mild pulmonary hypertension present. No comparison record. Signed by: Rafita Fernandez MD on 01/18/2024 9:23 AM Cath Report: 01/17/24 CARDIAC PROCEDURE 01/18/2024 8:26 PM (Final) Conclusion NSTEMI due to 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 LM with 70% distal stenosis LAD with ostial and proximal 85% stenosis, 80% mid segment stenosis and 50% distal stenosis Ramus intermedius with an 80% proximal stenosis and 70% mid to distal segment stenoiss Left circumflex with an 80% mid segment stenosis RCA with 99% distal segment stenosis at the bifurcation to the RPDA and RPLV. 90% stenosis of proximal RPL and 100% TURBINATED BONE GRINDER of ostial RPDA--distal vessel filling by [id number] collaterals. Normal LVEDP; no aortic stenosis. Signed by: Nicholas Arriaga MD on 01/18/2024 8:26 PM Assessment/Plan NSTEMI - [facility] MVCAD - Troponin trended down from peak 2.25 now 1.94 and discontinued - ECHO - WNL EF 74% Plan: - heparin drip - lipitor 80 - Aspirin 81 - Lopressor 25 BID - PPI - CTS following for CABG, procedure likely 01/22 HTN - Lopressor 25 BID - nitioglycerin drip stopped - Bps have been fluctuating 110-150s systolic with a few events of narrow pulse pressure - Reevaluate after CABG CKD3B - Cr stable at baseline ~1.8 - Cr 2.04 today Plan: - Nephrology consulted in setting of upcoming CABG procedure Hypothyroidism - Synthroid 100 - Goals of Care: Full Code - DVT Prophylaxis: Heparin Drip - GI Prophylaxis: Protonix daily - Diet: Regular - BMI Classification: Body mass index is 28.42 kg/m . - Disposition: Continue to monitor in CCU. Associated attestation - Mark Holguin MD - 01/23/2024 8:02 PM EDT I did not see patient prior to taking patient to the OR. Plan leading into today was to take for CABG today. No change in plan. Further care per new primary team of CT surgery, post op. Images from the original note were not included. Cardiothoracic Surgery Interval Note PATIENT NAME: Jorge Salamanca : 1945 (78 y.o.) TODAY'S DATE: 01/22/2024 Interval History: - Preop orders placed - NPO at midnight - Hep gtt off at midnight Scheduled for CABG tomorrow with Dr. Johnson Images from the original note were not included. [facility] [place] [facility] CCU PROGRESS NOTE Patient Name: Jorge Salamanca : 1945 Subjective: Jorge Salamanca is a 78 y.o. male with a history of HTN, HLD, type 2 DM, CKD stage 3B who presents now for evaluation of chest pain and dyspnea and noted to have elevation of troponins. He says he noticed dyspnea with exertion 2 days ago while walking to [facility] to visit his who is an inpatient there. He then had chest pain while in bed that night which was relieved with TUMS. The next day he was more tired and when he went to bed, he again had chest pain radiating into his back and arms. His symptoms did not resolve with TUMS so he came to the [facility] ER. His Tn of 2. LHC revealed MVCAD. Echo - EF 74% WNL. Patient was transferred from [facility] to [facility] for CABG evaluation. Interval History: Patient is chest pain free and resting in bed. He is in good spirits this morning. Blood pressures currently 140s/60s, went to 138/128 and 138/112 overnight. Plan for CABG tomorrow. Cr. 1.9, patient baseline noted to be ~ 1.8. Nephrology following to manage CKD3b in setting of upcoming CABG. Review of Systems: Constitutional: Negative for fever, chills Respiratory: Negative for apnea, cough, choking, chest tightness, shortness of breath, wheezing and stridor. Cardiovascular: Negative for chest pain and shortness of breath Gastrointestinal: Negative for nausea, vomiting, abdominal pain, diarrhea and blood in stool. Neurological: Negative for dizziness, tremors, seizures, syncope. Psychiatric/Behavioral: Negative for behavioral problems, self-injury and dysphoric mood. Inpatient Medications: Scheduled Meds:aspirin, 81 mg, Oral, Daily atorvastatin, 80 mg, Oral, Daily gabapentin, 300 mg, Oral, BID levothyroxine, 100 mcg, Oral, qAM AC metoprolol tartrate, 25 mg, Oral, BID pantoprazole, 20 mg, Oral, qAM AC Continuous Infusions:heparin, 5-30 Units/kg/hr, Last Rate: 13 Units/kg/hr (01/22/24 0635) PRN Meds used in the last 24hr: Heparin Objective: Physical Examination: BP 113/67 (BP Location: Right arm, Patient Position: Lying) Pulse 55 Temp 36.9 C (98.4 F) (Temporal) Resp 19 Ht 5' 6 (1.676 m) Wt 183 lb 3.2 oz (83.1 kg) SpO2 96% BMI 29.57 kg/m Intake/Output Summary (Last 24 hours) at 01/22/2024 0608 Last data filed at 01/22/2024 0535 Gross per 24 hour Intake 965.29 ml Output 2325 ml Net -1359.71 ml Physical Exam Constitutional: No distress. well nourished. well hydrated Psychiatric: A &O x 3. Medical insight good NMT: Oral mucosa is pink and moist Neck: no JVD. Respiratory: Lungs are clear Cardiac exam: Rhythm: RRR ; Normal S1 and S2 Murmur: no Other: No rub; S4 gallop Vasc: Peripheral pulses 2+ and equal Abdomen: BS+, soft, NT Extremities: no LE edema Skin: Warm to touch and well perfused Pertinent Labs: BMP: Lab Results Component Value Date NA 135 01/22/2024 K 4.3 01/22/2024 CL 110 (H) 01/22/2024 CO2 20 (L) 01/22/2024 BUN 22 (H) 01/22/2024 CREATININE 1.90 (H) 01/22/2024 GLUCOSE 97 01/22/2024 CALCIUM 8.5 01/22/2024 MG 2.1 01/22/2024 PHOS 3.7 01/22/2024 CBC: Lab Results Component Value Date WBC 6.9 01/22/2024 HGB 13.0 01/22/2024 HCT 39.8 (L) 01/22/2024 MCV 85.0 01/22/2024 PLT 144 01/22/2024 Cardiac profile: CK Date Value Ref Range Status 01/18/2024 157 30 - 170 U/L Final CKMB Date Value Ref Range Status 01/18/2024 8.0 (H) 0.0 - 4.4 ng/mL Final TROPONIN I Date Value Ref Range Status 01/19/2024 1.940 (HH) <0.034 ng/mL Final 01/18/2024 2.250 (HH) <0.034 ng/mL Final 01/18/2024 2.165 (HH) <0.034 ng/mL Final 01/18/2024 1.022 (HH) <0.034 ng/mL Final 01/17/2024 0.193 (HH) <0.034 ng/mL Final Coagulation: No results found for: INR, PTT Lipid panel: Lab Results Component Value Date CHOL 180 01/18/2024 HDL 33 (L) 01/18/2024 TRIG 100 01/18/2024 Other: Lab Results Component Value Date HGBA1C 6.0 (H) 01/18/2024 Chest Imaging: CXR: === 01/17/24 === XR CHEST 1 VIEW - Impression - 1. No focal infiltrates. 2. Diffuse miliary pattern in the lung morrow. This is nonspecific but may indicate histoplasmosis among other entities. Report Dictated on Electronically Signed By: Asher Santos MD Electronically Signed Date/Time: 01/17/2024 11:51 PM EDT Cardiac Studies: Telemetry findings reviewed: ECG: Encounter Date: 01/17/24 ECG 12 lead Result Value Heart Rate 55 QRSD Interval 87 QT Interval 459 QTC Interval 438 P [place] 44 QRS [place] 7 T Wave [place] 59 HI Interval 164 Impression Sinus bradycardia Echo: 01/17/24 TRANSTHORACIC ECHOCARDIOGRAM (TTE) COMPLETE (CONTRAST/BUBBLE/3D PRN) 01/18/2024 9:23 AM (Final) Interpretation Summary Left Ventricle: Left ventricle size is normal. Mildly increased wall thickness. Normal left ventricular systolic function. EF by 2D Simpsons Biplane is 74%. Normal wall motion. Diastolic dysfunction present with normal LVEF. Right Ventricle: Right ventricle size is normal. Normal systolic function. Aortic Valve: Mild (1+) regurgitation. Left Atrium: Left atrium is mildly dilated. Pulmonary Arteries: Pulmonary artery was not well visualized. Mild pulmonary hypertension present. No comparison record. Signed by: Rafita Fernandez MD on 01/18/2024 9:23 AM Cath Report: 01/17/24 CARDIAC PROCEDURE 01/18/2024 8:26 PM (Final) Conclusion NSTEMI due to 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 LM with 70% distal stenosis LAD with ostial and proximal 85% stenosis, 80% mid segment stenosis and 50% distal stenosis Ramus intermedius with an 80% proximal stenosis and 70% mid to distal segment stenoiss Left circumflex with an 80% mid segment stenosis RCA with 99% distal segment stenosis at the bifurcation to the RPDA and RPLV. 90% stenosis of proximal RPL and 100% TURBINATED BONE GRINDER of ostial RPDA--distal vessel filling by [id number] collaterals. Normal LVEDP; no aortic stenosis. Signed by: Nicholas Arriaga MD on 01/18/2024 8:26 PM Assessment/Plan NSTEMI - [facility] MVCAD - Troponin trended down from peak 2.25 now 1.94 and discontinued - ECHO - WNL EF 74% Plan: - heparin drip - lipitor 80 - Aspirin 81 - Lopressor 25 BID - PPI - CTS following for CABG, procedure likely 01/22 HTN - Lopressor 25 BID - nitioglycerin drip stopped - Bps have been fluctuating 110-150s systolic with a few events of narrow pulse pressure - Reevaluate after CABG CKD3B - Cr stable at baseline - Cr 1.9 today Plan: - Nephrology consulted in setting of upcoming CABG procedure Hypothyroidism - Synthroid 100 - Goals of Care: Full Code - DVT Prophylaxis: Heparin Drip - GI Prophylaxis: Protonix daily - Diet: Regular - BMI Classification: Body mass index is 29.57 kg/m . - Disposition: Continue to monitor in CCU. Associated attestation - Mark Holguin MD - 01/22/2024 8:10 PM EDT I, Dr. Holguin, saw and evaluated the patient. I personally obtained the godwin and critical portions of the history and physical exam. I reviewed the chart and discussed the patient with the resident. I agree with the resident's medical decision making. Assessment/Plan: Patient admitted with NSTEMI, found to have multivessel disease. CT surgery following. Also with CKD, about at baseline renal function. Nephrology following. Plan for CABG tomorrow. Images from the original note were not included. [facility] [place] [facility] CCU PROGRESS NOTE Patient Name: Jorge Salamanca : 1945 Subjective: Jorge Salamanca is a 78 y.o. male with a history of HTN, HLD, type 2 DM, CKD stage 3B who presents now for evaluation of chest pain and dyspnea and noted to have elevation of troponins. He says he noticed dyspnea with exertion 2 days ago while walking to [facility] to visit his who is an inpatient there. He then had chest pain while in bed that night which was relieved with TUMS. The next day he was more tired and when he went to bed, he again had chest pain radiating into his back and arms. His symptoms did not resolve with TUMS so he came to the [facility] ER. His Tn of 2. LHC revealed MVCAD. Echo - EF 74% WNL. Patient was transferred from [facility] to [facility] for CABG evaluation. Interval History: Patient is chest pain free and resting in bed. Blood pressures currently 130s/80s. Patient had periods of 170-180 SBP last night. When asked patient denied any chest pain throughout the night but stated he was up thinking about his , who at [facility] yesterday. CTS onboard for CABG evaluation. Patient notes he would like to pursue CABG. Cr. 1.84 trending down, patient baseline noted to be ~ 1.8. Nephrology consulted to manage CKD3b in setting of upcoming CABG. Review of Systems: Constitutional: Negative for fever, chills Respiratory: Negative for apnea, cough, choking, chest tightness, shortness of breath, wheezing and stridor. Cardiovascular: Negative for chest pain and shortness of breath Gastrointestinal: Negative for nausea, vomiting, abdominal pain, diarrhea and blood in stool. Neurological: Negative for dizziness, tremors, seizures, syncope. Psychiatric/Behavioral: Negative for behavioral problems, self-injury and dysphoric mood. Inpatient Medications: Scheduled Meds:aspirin, 81 mg, Oral, Daily atorvastatin, 80 mg, Oral, Daily gabapentin, 300 mg, Oral, BID levothyroxine, 100 mcg, Oral, qAM AC metoprolol tartrate, 25 mg, Oral, BID pantoprazole, 20 mg, Oral, qAM AC Continuous Infusions:heparin, 5-30 Units/kg/hr, Last Rate: 12 Units/kg/hr (01/21/24 0730) PRN Meds used in the last 24hr: Heparin Objective: Physical Examination: BP 155/76 Pulse 59 Temp 36.3 C (97.3 F) (Temporal) Resp 16 Ht 1.676 m (5' 6) Wt 81.5 kg (179 lb 10.8 oz) SpO2 99% BMI 29.00 kg/m Intake/Output Summary (Last 24 hours) at 01/21/2024 1132 Last data filed at 01/21/2024 0600 Gross per 24 hour Intake 2023 ml Output 2100 ml Net -76 ml Physical Exam Constitutional: No distress. well nourished. well hydrated Psychiatric: A &O x 3. Medical insight good NMT: Oral mucosa is pink and moist Neck: no JVD. Respiratory: Lungs are clear Cardiac exam: Rhythm: RRR ; Normal S1 and S2 Murmur: no Other: No rub; S4 gallop Vasc: Peripheral pulses 2+ and equal Abdomen: BS+, soft, NT Extremities: no LE edema Skin: Warm to touch and well perfused Pertinent Labs: BMP: Lab Results Component Value Date NA 134 (L) 01/21/2024 K 4.5 01/21/2024 CL 109 (H) 01/21/2024 CO2 20 (L) 01/21/2024 BUN 24 (H) 01/21/2024 CREATININE 1.84 (H) 01/21/2024 GLUCOSE 122 (H) 01/21/2024 CALCIUM 8.2 (L) 01/21/2024 MG 1.8 01/21/2024 PHOS 3.6 01/21/2024 CBC: Lab Results Component Value Date WBC 7.3 01/21/2024 HGB 13.4 01/21/2024 HCT 40.6 01/21/2024 MCV 83.7 01/21/2024 PLT 146 01/21/2024 Cardiac profile: CK Date Value Ref Range Status 01/18/2024 157 30 - 170 U/L Final CKMB Date Value Ref Range Status 01/18/2024 8.0 (H) 0.0 - 4.4 ng/mL Final TROPONIN I Date Value Ref Range Status 01/19/2024 1.940 (HH) <0.034 ng/mL Final 01/18/2024 2.250 (HH) <0.034 ng/mL Final 01/18/2024 2.165 (HH) <0.034 ng/mL Final 01/18/2024 1.022 (HH) <0.034 ng/mL Final 01/17/2024 0.193 (HH) <0.034 ng/mL Final Coagulation: No results found for: INR, PTT Lipid panel: Lab Results Component Value Date CHOL 180 01/18/2024 HDL 33 (L) 01/18/2024 TRIG 100 01/18/2024 Other: Lab Results Component Value Date HGBA1C 6.0 (H) 01/18/2024 Chest Imaging: CXR: === 01/17/24 === XR CHEST 1 VIEW - Impression - 1. No focal infiltrates. 2. Diffuse miliary pattern in the lung morrow. This is nonspecific but may indicate histoplasmosis among other entities. Report Dictated on Electronically Signed By: Asher Santos MD Electronically Signed Date/Time: 01/17/2024 11:51 PM EDT Cardiac Studies: Telemetry findings reviewed: ECG: Encounter Date: 01/17/24 ECG 12 lead Result Value Heart Rate 56 QRSD Interval 84 QT Interval 448 QTC Interval 434 P [place] 34 QRS [place] 0 T Wave [place] 52 HI Interval 174 Impression Sinus bradycardia Echo: 01/17/24 TRANSTHORACIC ECHOCARDIOGRAM (TTE) COMPLETE (CONTRAST/BUBBLE/3D PRN) 01/18/2024 9:23 AM (Final) Interpretation Summary Left Ventricle: Left ventricle size is normal. Mildly increased wall thickness. Normal left ventricular systolic function. EF by 2D Simpsons Biplane is 74%. Normal wall motion. Diastolic dysfunction present with normal LVEF. Right Ventricle: Right ventricle size is normal. Normal systolic function. Aortic Valve: Mild (1+) regurgitation. Left Atrium: Left atrium is mildly dilated. Pulmonary Arteries: Pulmonary artery was not well visualized. Mild pulmonary hypertension present. No comparison record. Signed by: Rafita Fernandez MD on 01/18/2024 9:23 AM Cath Report: 01/17/24 CARDIAC PROCEDURE 01/18/2024 8:26 PM (Final) Conclusion NSTEMI due to 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 LM with 70% distal stenosis LAD with ostial and proximal 85% stenosis, 80% mid segment stenosis and 50% distal stenosis Ramus intermedius with an 80% proximal stenosis and 70% mid to distal segment stenoiss Left circumflex with an 80% mid segment stenosis RCA with 99% distal segment stenosis at the bifurcation to the RPDA and RPLV. 90% stenosis of proximal RPL and 100% TURBINATED BONE GRINDER of ostial RPDA--distal vessel filling by [id number] collaterals. Normal LVEDP; no aortic stenosis. Signed by: Nicholas Arriaga MD on 01/18/2024 8:26 PM Assessment/Plan NSTEMI - [facility] MVCAD - Troponin trended down from peak 2.25 now 1.94 and discontinued - ECHO - WNL EF 74% Plan: - heparin drip - lipitor 80 - Aspirin 81 - Lopressor 25 BID - PPI - CTS following for CABG, procedure likely 01/22 HTN - Lopressor 25 BID - nitioglycerin drip stopped - Bps now stable, SBP 130s CKD3B - Cr stable at baseline - Cr down from 1.91 to 1.84 Plan: - Nephrology consulted in setting of upcoming CABG procedure Hypothyroidism - Synthroid 100 - Goals of Care: Full Code - DVT Prophylaxis: Heparin Drip - GI Prophylaxis: Protonix daily - Diet: Regular - BMI Classification: Body mass index is 29 kg/m . - Disposition: Continue to monitor in CCU. Associated attestation - Mark Holguin MD - 01/21/2024 4:11 PM EDT I, Dr. Holguin, saw and evaluated the patient. I personally obtained the godwin and critical portions of the history and physical exam. I reviewed the chart and discussed the patient with the resident. I agree with the resident's medical decision making. Assessment/Plan: Patient admitted with NSTEMI, found to have multivessel disease. CT surgery following. Also with CKD, about at baseline renal function. Nephrology to see pt today to consult on risk and perioperative management of renal disease, if CABG considered. Coronary anatomy more optimally treated with CABG than PCI. Pt understands and willing to consider CABG if otherwise a good candidate. Images from the original note were not included. [facility] [place] [facility] CCU PROGRESS NOTE Patient Name: Jorge Salamanca : 1945 Subjective: Jorge Salamanca is a 78 y.o. male with a history of HTN, HLD, type 2 DM, CKD stage 3B who presents now for evaluation of chest pain and dyspnea and noted to have elevation of troponins. He says he noticed dyspnea with exertion 2 days ago while walking to [facility] to visit his who is an inpatient there. He then had chest pain while in bed that night which was relieved with TUMS. The next day he was more tired and when he went to bed, he again had chest pain radiating into his back and arms. His symptoms did not resolve with TUMS so he came to the [facility] ER. His Tn of 2. LHC revealed MVCAD. Echo - EF 74% WNL. Patient was transferred from [facility] to [facility] for CABG evaluation. Interval History: Patient is chest pain free and resting in bed. Today his who was critically ill and admitted ot [facility] . CTS onboard for CABG evaluation. Patient understandably still deciding if he would like to pursue CABG, PCI, or medical management at this time. He would like to speak with surgeon. Review of Systems: Constitutional: Negative for fever, chills Respiratory: Negative for apnea, cough, choking, chest tightness, shortness of breath, wheezing and stridor. Cardiovascular: Negative for chest pain and shortness of breath Gastrointestinal: Negative for nausea, vomiting, abdominal pain, diarrhea and blood in stool. Neurological: Negative for dizziness, tremors, seizures, syncope. Psychiatric/Behavioral: Negative for behavioral problems, self-injury and dysphoric mood. Inpatient Medications: Scheduled Meds:aspirin, 81 mg, Oral, Daily atorvastatin, 80 mg, Oral, Daily gabapentin, 300 mg, Oral, BID levothyroxine, 100 mcg, Oral, qAM AC metoprolol tartrate, 25 mg, Oral, BID [START ON 01/21/2024] pantoprazole, 20 mg, Oral, qAM AC Continuous Infusions:heparin, 5-30 Units/kg/hr, Last Rate: 12 Units/kg/hr (01/20/24 1453) sodium chloride, 75 mL/hr, Last Rate: 75 mL/hr (01/20/24 1453) PRN Meds used in the last 24hr: Heparin Objective: Physical Examination: BP 159/99 Pulse 58 Temp 36.7 C (98.1 F) Resp 16 Ht 1.676 m (5' 6) Wt 82.9 kg (182 lb 12.2 oz) SpO2 97% BMI 29.50 kg/m Intake/Output Summary (Last 24 hours) at 01/20/2024 1538 Last data filed at 01/20/2024 1400 Gross per 24 hour Intake 1685 ml Output 1350 ml Net 335 ml Physical Exam Constitutional: No distress. well nourished. well hydrated Psychiatric: A &O x 3. Medical insight good NMT: Oral mucosa is pink and moist Neck: no JVD. Respiratory: Lungs are clear Cardiac exam: Rhythm: RRR ; Normal S1 and S2 Murmur: no Other: No rub; S4 gallop Vasc: Peripheral pulses 2+ and equal Abdomen: BS+, soft, NT Extremities: no LE edema Skin: Warm to touch and well perfused Pertinent Labs: BMP: Lab Results Component Value Date NA 135 01/20/2024 K 4.2 01/20/2024 CL 109 (H) 01/20/2024 CO2 23 01/20/2024 BUN 20 01/20/2024 CREATININE 1.89 (H) 01/20/2024 GLUCOSE 113 (H) 01/20/2024 CALCIUM 8.1 (L) 01/20/2024 MG 1.9 01/20/2024 PHOS 3.6 01/20/2024 CBC: Lab Results Component Value Date WBC 7.3 01/20/2024 HGB 12.6 (L) 01/20/2024 HCT 38.2 (L) 01/20/2024 MCV 84.3 01/20/2024 PLT 130 (L) 01/20/2024 Cardiac profile: CK Date Value Ref Range Status 01/18/2024 157 30 - 170 U/L Final CKMB Date Value Ref Range Status 01/18/2024 8.0 (H) 0.0 - 4.4 ng/mL Final TROPONIN I Date Value Ref Range Status 01/19/2024 1.940 (HH) <0.034 ng/mL Final 01/18/2024 2.250 (HH) <0.034 ng/mL Final 01/18/2024 2.165 (HH) <0.034 ng/mL Final 01/18/2024 1.022 (HH) <0.034 ng/mL Final 01/17/2024 0.193 (HH) <0.034 ng/mL Final Coagulation: No results found for: INR, PTT Lipid panel: Lab Results Component Value Date CHOL 180 01/18/2024 HDL 33 (L) 01/18/2024 TRIG 100 01/18/2024 Other: Lab Results Component Value Date HGBA1C 6.0 (H) 01/18/2024 Chest Imaging: CXR: === 01/17/24 === XR CHEST 1 VIEW - Impression - 1. No focal infiltrates. 2. Diffuse miliary pattern in the lung mororw. This is nonspecific but may indicate histoplasmosis among other entities. Report Dictated on Electronically Signed By: Asher Santos MD Electronically Signed Date/Time: 01/17/2024 11:51 PM EDT Cardiac Studies: Telemetry findings reviewed: ECG: Encounter Date: 01/17/24 ECG 12 lead Result Value Heart Rate 59 QRSD Interval 82 QT Interval 453 QTC Interval 450 P [place] 31 QRS [place] -6 T Wave [place] -17 HI Interval 152 Impression Sinus bradycardia LVH by voltage Nonspecific T abnormalities, inferior leads Echo: 01/17/24 TRANSTHORACIC ECHOCARDIOGRAM (TTE) COMPLETE (CONTRAST/BUBBLE/3D PRN) 01/18/2024 9:23 AM (Final) Interpretation Summary Left Ventricle: Left ventricle size is normal. Mildly increased wall thickness. Normal left ventricular systolic function. EF by 2D Simpsons Biplane is 74%. Normal wall motion. Diastolic dysfunction present with normal LVEF. Right Ventricle: Right ventricle size is normal. Normal systolic function. Aortic Valve: Mild (1+) regurgitation. Left Atrium: Left atrium is mildly dilated. Pulmonary Arteries: Pulmonary artery was not well visualized. Mild pulmonary hypertension present. No comparison record. Signed by: Rafita Fernandez MD on 01/18/2024 9:23 AM Cath Report: 01/17/24 CARDIAC PROCEDURE 01/18/2024 8:26 PM (Final) Conclusion NSTEMI due to 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 LM with 70% distal stenosis LAD with ostial and proximal 85% stenosis, 80% mid segment stenosis and 50% distal stenosis Ramus intermedius with an 80% proximal stenosis and 70% mid to distal segment stenoiss Left circumflex with an 80% mid segment stenosis RCA with 99% distal segment stenosis at the bifurcation to the RPDA and RPLV. 90% stenosis of proximal RPL and 100% TURBINATED BONE GRINDER of ostial RPDA--distal vessel filling by [id number] collaterals. Normal LVEDP; no aortic stenosis. Signed by: Nicholas Arriaga MD on 01/18/2024 8:26 PM Assessment/Plan NSTEMI - LHC MVCAD - Troponin trended down from peak 2.25 now 1.94 - ECHO - WNL EF 74% Plan: - heparin drip - lipitor 80 - Aspirin 81 - Lopressor 25 BID - PPI - CTS following for CABG evaluation HTN - Lopressor 25 BID - nitioglycerin drip stopped - Bps now stable SBP 130s CKD3B - Cr stable at baseline - Cr down from 2.03 to 1.91 Hypothyroidism - Synthroid 100 - Goals of Care: Full Code - DVT Prophylaxis: Heparin Drip - GI Prophylaxis: Protonix daily - Diet: Regular - BMI Classification: Body mass index is 29.5 kg/m . - Disposition: Continue to monitor in CCU. Associated attestation - Melina Bolaños MD - 01/20/2024 5:57 PM EDT I, Dr. Melina Bolaños, saw and evaluated the patient 01/20/24. I personally obtained the godwin and critical portions of the history and physical exam. I reviewed the chart and discussed the patient with the resident. I agree with the resident's medical decision making. - mild chest discomfort this morning when he found out his here in a different unit. Will optimized anti-anginals. - renal function stable to slightly improved. Continue gentle hydration - continue supportive care pending evaluation for surgical revascularization Nutrition rescreen completed. Chart reviewed. Patient to be monitored and followed by the diet arch support technician. RENETTA Turcios Images from the original note were not included. [facility] [place] [facility] CCU PROGRESS NOTE Patient Name: Jorge Salamanca : 1945 Subjective: Jorge Salamanca is a 78 y.o. male with a history of HTN, HLD, type 2 DM, CKD stage 3B who presents now for evaluation of chest pain and dyspnea and noted to have elevation of troponins. He says he noticed dyspnea with exertion 2 days ago while walking to [facility] to visit his who is an inpatient there. He then had chest pain while in bed that night which was relieved with TUMS. The next day he was more tired and when he went to bed, he again had chest pain radiating into his back and arms. His symptoms did not resolve with TUMS so he came to the [facility] ER. His Tn of 2. LHC revealed MVCAD. Echo - EF 74% WNL. Patient was transferred from [facility] to [facility] for CABG evaluation. Interval History: BP overnight 180s systolic, started on nitroglycerin drip in addition to lopressor 25 BID. BP became low this morning, pt found to be sleeping on cuff. Recheck of 116/61. Patient weaned of nitroglycerin. Patients is critically ill, admitted to [facility] as well. recently fell and found to have subarachnoid hemorrhage. Review of Systems: Constitutional: Negative for fever, chills Respiratory: Negative for apnea, cough, choking, chest tightness, shortness of breath, wheezing and stridor. Cardiovascular: Negative for chest pain and shortness of breath Gastrointestinal: Negative for nausea, vomiting, abdominal pain, diarrhea and blood in stool. Neurological: Negative for dizziness, tremors, seizures, syncope. Psychiatric/Behavioral: Negative for behavioral problems, self-injury and dysphoric mood. Inpatient Medications: Scheduled Meds:aspirin, 81 mg, Oral, Daily atorvastatin, 80 mg, Oral, Daily gabapentin, 300 mg, Oral, BID levothyroxine, 100 mcg, Oral, qAM AC metoprolol tartrate, 12.5 mg, Oral, BID pantoprazole, 40 mg, Oral, qAM AC Continuous Infusions:heparin, 5-30 Units/kg/hr, Last Rate: 13 Units/kg/hr (01/19/24 1205) PRN Meds used in the last 24hr: Heparin Objective: Physical Examination: BP 127/70 Pulse 59 Temp 36.7 C (98.1 F) Resp 15 Ht 1.676 m (5' 6) Wt 83.4 kg (183 lb 13.8 oz) SpO2 99% BMI 29.68 kg/m Intake/Output Summary (Last 24 hours) at 01/19/2024 1505 Last data filed at 01/19/2024 1001 Gross per 24 hour Intake 680 ml Output 1200 ml Net -520 ml Physical Exam Constitutional: No distress. well nourished. well hydrated Psychiatric: A &O x 3. Medical insight good NMT: Oral mucosa is pink and moist Neck: no JVD. Respiratory: Lungs are clear Cardiac exam: Rhythm: RRR ; Normal S1 and S2 Murmur: no Other: No rub; S4 gallop Vasc: Peripheral pulses 2+ and equal Abdomen: BS+, soft, NT Extremities: no LE edema Skin: Warm to touch and well perfused Pertinent Labs: BMP: Lab Results Component Value Date NA 135 01/18/2024 K 4.3 01/18/2024 CL 108 (H) 01/18/2024 CO2 19 (L) 01/18/2024 BUN 20 01/18/2024 CREATININE 1.91 (H) 01/18/2024 GLUCOSE 131 (H) 01/18/2024 CALCIUM 8.4 01/18/2024 MG 1.8 01/18/2024 PHOS 3.2 01/18/2024 CBC: Lab Results Component Value Date WBC 6.6 01/18/2024 HGB 14.6 01/18/2024 HCT 44.8 01/18/2024 MCV 87.5 01/18/2024 PLT 160 01/18/2024 Cardiac profile: CK Date Value Ref Range Status 01/18/2024 157 30 - 170 U/L Final CKMB Date Value Ref Range Status 01/18/2024 8.0 (H) 0.0 - 4.4 ng/mL Final TROPONIN I Date Value Ref Range Status 01/19/2024 1.940 (HH) <0.034 ng/mL Final 01/18/2024 2.250 (HH) <0.034 ng/mL Final 01/18/2024 2.165 (HH) <0.034 ng/mL Final 01/18/2024 1.022 (HH) <0.034 ng/mL Final 01/17/2024 0.193 (HH) <0.034 ng/mL Final Coagulation: No results found for: INR, PTT Lipid panel: Lab Results Component Value Date CHOL 180 01/18/2024 HDL 33 (L) 01/18/2024 TRIG 100 01/18/2024 Other: Lab Results Component Value Date HGBA1C 6.0 (H) 01/18/2024 Chest Imaging: CXR: === 01/17/24 === XR CHEST 1 VIEW - Impression - 1. No focal infiltrates. 2. Diffuse miliary pattern in the lung morrow. This is nonspecific but may indicate histoplasmosis among other entities. Report Dictated on Electronically Signed By: Asher Santos MD Electronically Signed Date/Time: 01/17/2024 11:51 PM EDT Cardiac Studies: Telemetry findings reviewed: ECG: Encounter Date: 01/17/24 ECG 12 lead Result Value Heart Rate 57 QRSD Interval 80 QT Interval 504 QTC Interval 493 P Grandview 41 QRS Grandview -3 T Wave Grandview -36 HI Interval 146 Impression Sinus bradycardia LVH by voltage Abnormal T, consider ischemia, diffuse leads Echo: 01/17/24 TRANSTHORACIC ECHOCARDIOGRAM (TTE) COMPLETE (CONTRAST/BUBBLE/3D PRN) 01/18/2024 9:23 AM (Final) Interpretation Summary Left Ventricle: Left ventricle size is normal. Mildly increased wall thickness. Normal left ventricular systolic function. EF by 2D Simpsons Biplane is 74%. Normal wall motion. Diastolic dysfunction present with normal LVEF. Right Ventricle: Right ventricle size is normal. Normal systolic function. Aortic Valve: Mild (1+) regurgitation. Left Atrium: Left atrium is mildly dilated. Pulmonary Arteries: Pulmonary artery was not well visualized. Mild pulmonary hypertension present. No comparison record. Signed by: Rafita Fernandez MD on 01/18/2024 9:23 AM Cath Report: 01/17/24 CARDIAC PROCEDURE 01/18/2024 8:26 PM (Final) Conclusion NSTEMI due to 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 LM with 70% distal stenosis LAD with ostial and proximal 85% stenosis, 80% mid segment stenosis and 50% distal stenosis Ramus intermedius with an 80% proximal stenosis and 70% mid to distal segment stenoiss Left circumflex with an 80% mid segment stenosis RCA with 99% distal segment stenosis at the bifurcation to the RPDA and RPLV. 90% stenosis of proximal RPL and 100% TURBINATED BONE GRINDER of ostial RPDA--distal vessel filling by [id number] collaterals. Normal LVEDP; no aortic stenosis. Signed by: Nicholas Arriaga MD on 01/18/2024 8:26 PM Assessment/Plan NSTEMI - LHC MVCAD - Troponin trended down from peak 2.25 now 1.94 - ECHO - WNL EF 74% Plan: - heparin drip - lipitor 80 - Aspirin 81 - Lopressor 25 BID - PPI - CTS following for CABG evaluation HTN - Lopressor 25 BID - nitioglycerin drip stopped - Bps now stable SBP 130s CKD3B - Cr stable at baseline - Cr down from 2.03 to 1.91 Hypothyroidism - Synthroid 100 - Goals of Care: Full Code - DVT Prophylaxis: Heparin Drip - GI Prophylaxis: Protonix daily - Diet: Regular - BMI Classification: Body mass index is 29.68 kg/m . - Disposition: Continue to monitor in CCU. Associated attestation - Melina Bolaños MD - 01/19/2024 3:33 PM EDT I, Dr. Melina Bolaños, saw and evaluated the patient 01/19/24. I personally obtained the godiwn and critical portions of the history and physical exam. I reviewed the chart and discussed the patient with the resident. I agree with the resident's medical decision making. In summary, 78-year-old man here with NSTEMI secondary to severe multivessel CAD, preserved LVEF. Also he has a history of diabetes type 2, CKD stage IIIb. He is being evaluated for surgical revascularization. Currently no angina at rest, and euvolemic on exam. Continue current supportive care and medical management of CAD pending revascularization plan. Continue to monitor closely for signs of ischemia. Patient was transferred from [facility] to [facility] T1 HLU for CABG evaluation in the setting of severe multivessel coronary disease. CCU team came to bedside for evaluation. Patient appeared in nonacute distress, denies any active complaint at this time. Denies chest pain, shortness of breath, heart palpitation, lightheadedness. Patient had a good understanding of his current condition of multivessel coronary artery disease and the reason he was transferred to [facility] for CABG evaluation. He did endorse feeling anxious about that. Patient has history of CKD stage IIIb, hypothyroidism, type 2 diabetes last A1c 5.8 in 2022. Had smoking hx of 7pkyr. No alcohol or drug use. His hemodynamic status was significant for blood pressure of 180s/90s, heart rate of 50s to 60s. He maintained good SpO2 on room air. Patient was alert and oriented x 3. Physical exam was unremarkable except for mild neuropathic pain on bilateral lower extremity and +1 peripheral edema on left foot. Plan was to continue heparin drip, to start nitro drip to help with blood pressure control with goal SBP 120-140, and have cardiothoracic surgery team consulted for evaluation of CABG in the morning. CCU team will continue to monitor closely his labs, EKGs, telemetry. Dr. Arriaga informed me of the patient's cath results and I reviewed and agree. He has severe three vessel CAD. He is not having chest pain now but had an NSTEMI on arrival. Will plan to transfer to HLU at [facility] and get evaluation for CABG vs high risk PCI. Dr. Arriaga discussed with patient and Dr. Bolaños who is the attending at the HLU. documented in this encounter [facility] 01-29-2024 Note [facility] via [facility] per [facility] request. Await review and response regarding ability to accept. TCC notified. Electronically [facility] Consult note Formatting of th is note might be different from the original. Received referral and reviewed chart. Phase II Cardiopulmonary Rehab Referral discussed with Jorge Salamanca. Patient prefers cardiopulmonary rehab at [facility]. Given information on program at preferred location. [facility] [place] Nephrology Consult Note Consults HPI 80 yr old with a significant past medical history, including hypertension (HTN), hyperlipidemia (HLD), type 2 diabetes mellitus (T2DM), and chronic kidney disease (CKD), presented to the emergency department with chest pain and shortness of breath that had been intermittent for two days. Initially, the chest pain was relieved by TUMS, but it later recurred and radiated to his back, arms, and jaw, prompting the visit to the ED. An electrocardiogram revealed slightly inverted T waves, and his initial troponin level was 0.19, raising concern for a [id number] myocardial infarction (NSTEMI). He was admitted and taken to the catheterization lab, where multivessel coronary artery disease (CAD) was discovered. Cardiothoracic surgery was consulted, and the patient underwent a quadruple coronary artery bypass grafting (CABG) with bilateral internal mammary arteries (BIMAs), left ventricular heart (LEVH) support, sternal plating, and transesophageal echocardiography (SHARMAINE) on January 23, 2024, under Dr. Johnson. On postoperative day 1, he remains afebrile, in normal sinus rhythm (NSR) with stable blood pressure off pressors, and has been extubated and is currently on nasal cannula (NC) oxygen. He continues to receive low-dose nitroglycerin for the right internal mammary artery (SUHAS) graft and insulin at 1 unit per hour. His pain is manageable with medication, and no nausea or vomiting has been noted. His arterial line BP is stable at 133/51. 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) Hyperlipemia Hypertension Social History Socioeconomic History Marital status: Spouse name: Not on file Number of children: Not on file Years of education: Not on file Highest education level: Not on file Occupational History Not on file Tobacco Use Smoking status: Never Passive exposure: Current Smokeless tobacco: Never Tobacco comments: Quit smoking: smokes 3.5 packs daily Substance and Sexual Activity Alcohol use: Not Currently Drug use: Never Sexual activity: Not on file Other Topics Concern Not on file Social History Narrative Not on file Social Determinants of Health Financial Resource Strain: Low Risk (01/18/2024) Overall Financial Resource Strain (CARDIA) Difficulty of Paying Living Expenses: Not very hard Food Insecurity: No Food Insecurity (01/18/2024) Hunger Vital Sign Worried About Running Out of Food in the Last Year: Never true Ran Out of Food in the Last Year: Never true Transportation Needs: No Transportation Needs (01/18/2024) PRAPARE - Transportation Lack of Transportation (Medical): No Lack of Transportation (Non-Medical): No Physical Activity: Insufficiently Active (01/18/2024) Exercise Vital Sign Days of Exercise per Week: 2 days Minutes of Exercise per Session: 30 min Stress: Stress Concern Present (01/18/2024) [employer] [place] [employer] - Occupational Stress Questionnaire Feeling of Stress : To some extent Social Connections: Unknown (01/18/2024) Social Connection and Isolation Panel [NHANES] Frequency of Communication with Friends and Family: Not on file Frequency of Social Gatherings with Friends and Family: Not on file Attends Sabianism Services: Not on file Active Member of Clubs or Organizations: Not on file Attends Club or Organization Meetings: Not on file Marital Status: Intimate Partner Violence: Not At Risk (01/18/2024) Humiliation, Afraid, Rape, and Kick questionnaire Fear of Current or Ex-Partner: No Emotionally Abused: No Physically Abused: No Sexually Abused: No Housing Stability: Low Risk (01/18/2024) Housing Stability Vital Sign Unable to Pay for Housing in the Last Year: No Number of Times Moved in the Last Year: 0 Homeless in the Last Year: No Family History Problem Relation Name Age of Onset No Known Problems Brother No Known Problems Brother Bipolar disorder Sister Arthritis Sister Lung cancer Father Alzheimer's disease Mother Cancer Father No current facility-administered medications on file prior to encounter. Current Outpatient Medications on File Prior to Encounter Medication Sig Dispense Refill amLODIPine (Norvasc) 5 MG tablet Take 5 mg by mouth before bedtime. gabapentin (Neurontin) 300 MG capsule Take 600 mg by mouth 2 times daily. levothyroxine (Synthroid, Levoxyl) 100 MCG tablet Take 100 mcg by mouth every morning (before breakfast). metoprolol succinate XL (Toprol-XL) 100 MG 24 hr tablet Take 100 mg by mouth daily. omega-3 (Fish Oil) 1000 MG capsule Take 1,000 mg by mouth daily. Scheduled medications acetaminophen, 1,000 mg, Oral, q8h amLODIPine, 2.5 mg, Oral, Daily aspirin, 81 mg, Oral, Daily ceFAZolin, 2,000 mg, IntraVENous, q8h chlorhexidine, 15 mL, Mouth/Throat, BID gabapentin, 300 mg, Oral, BID [Held by provider] heparin, 5,000 Units, SubCUTAneous, BID insulin glargine, 10 Units, SubCUTAneous, q24h insulin lispro, 0-6 Units, SubCUTAneous, TID WC levothyroxine, 100 mcg, Oral, qAM AC Lidocaine, 1 patch, Topical, Daily metoclopramide, 10 mg, IntraVENous, q6h mupirocin, , Nasal, BID [START ON 01/25/2024] pantoprazole, 40 mg, Oral, qAM AC polyethylene glycol (PEG) 3350, 17 g, Oral, Daily rosuvastatin, 40 mg, Oral, Daily senna-docusate sodium, 2 tablet, Oral, Nightly simethicone, 80 mg, Oral, 4x daily sodium chloride 0.9%, 10 mL, IntraVENous, 2 times per day sodium chloride 0.9%, 5-40 mL, IntraCATHeter, q8h Continuous medications lactated ringers, 250 mL, Last Rate: Stopped (01/24/24 0306) sodium chloride, 20 mL/hr, Last Rate: 20 mL/hr (01/23/24 1511) PRN medications PRN medications: calcium gluconate, dextrose, dextrose, glucagon (rDNA), glucose, HYDROmorphone OR HYDROmorphone, ipratropium-albuterol, lactated ringers, magnesium hydroxide, magnesium sulfate OR magnesium sulfate, naloxone, oxyCODONE OR oxyCODONE, potassium chloride OR potassium chloride OR potassium chloride, potassium chloride CR, sodium chloride, sodium chloride 0.9%, sodium chloride 0.9% Review of systems as per HPI otherwise 10 point review systems negative BP 103/54 Pulse 76 Temp 36.8 C (98.2 F) (Temporal) Resp 13 Ht 1.676 m (5' 6) Wt 79.6 kg (175 lb 7.8 oz) SpO2 94% BMI 28.32 kg/m Input / Output: 24 HR: Intake/Output Summary (Last 24 hours) at 01/24/2024 1836 Last data filed at 01/24/2024 1730 Gross per 24 hour Intake 1302 ml Output 1366 ml Net -64 ml Physical Exam Alert and oriented x 3, NAD EOMI OP clear Neck: supple, No JVD CV: RRR without m/r/g Lungs: CTA bilaterally Abd: soft NT/ND +BS Ext: 2+ lower extremity edema : +ott Neuro: grossly intact Skin: no rashes Results from last 7 days Lab Units 01/24/24 1502 01/24/24 0009 01/23/24 1638 SODIUM mmol/L 134* 142 139 POTASSIUM mmol/L 4.8 4.6 4.3 CHLORIDE mmol/L 104 112* 113* CO2 mmol/L 16* 15* 17* BUN mg/dL 24* 21* 20 CREATININE mg/dL 2.56* 2.18* 1.94* GLUCOSE mg/dL 242* 119* 135* CALCIUM mg/dL 8.3* 8.3* 8.1* Results from last 7 days Lab Units 01/24/24 1502 01/24/24 0009 SODIUM mmol/L 134* 142 POTASSIUM mmol/L 4.8 4.6 CHLORIDE mmol/L 104 112* CO2 mmol/L 16* 15* BUN mg/dL 24* 21* CREATININE mg/dL 2.56* 2.18* CALCIUM mg/dL 8.3* 8.3* PROTEIN TOTAL g/dL -- 6.2* BILIRUBIN TOTAL mg/dL -- 0.7 ALK PHOS U/L -- 37* ALT U/L -- 50* AST U/L -- 166* GLUCOSE mg/dL 242* 119* Results from last 7 days Lab Units 01/24/24 0009 01/23/24 1638 01/23/24 1314 MAGNESIUM mg/dL 2.6* 2.9* 3.9* Results from last 7 days Lab Units 01/24/24 0009 01/23/24 1638 01/23/24 1314 WBC AUTO 10*3/uL 9.5 7.9 6.3 HEMOGLOBIN g/dL 8.8* 10.1* 8.6* HEMOGLOBIN BG g/dl -- -- 9.3 HEMATOCRIT % 26.9* 30.7* 26.0* PLATELETS 10*3/uL 97* 104* 76* XR chest 1 view Final Result 1. No focal infiltrates. 2. Diffuse miliary pattern in the lung morrow. This is nonspecific but may indicate histoplasmosis among other entities. Report Dictated on Electronically Signed By: Asher Santos MD Electronically Signed Date/Time: 01/17/2024 11:51 PM EDT Assessment: Assessment and Plan for Acute Kidney Injury (ALEXANDER) likely secondary to Acute Tubular Necrosis (ATN): Assessment: The patient presents with ALEXANDER on a background of chronic kidney disease (CKD), likely due to acute tubular necrosis (ATN) following recent cardiac surgery. This is compounded by the recent need for cardiopulmonary bypass, perioperative hypotension, and potential nephrotoxic exposure. Plan: Furosemide Stress Test: Administer 80 mg IV furosemide with albumin to assess the patient s urine output (UO). This test will help determine the responsiveness of the kidneys to diuretics and guide further management. Monitor Urine Output: Closely monitor urine output following the furosemide stress test. If there is an adequate diuretic response (UO > 200 mL in the next 2 hours), continue with furosemide as needed. Bumetanide (Bumex) Drip: If the patient fails to respond to the furosemide stress test (UO < 200 mL), initiate a continuous Bumex drip for more aggressive diuresis. Adjust the rate based on the patient's response and renal function. Renal Replacement Therapy (OCCUPATIONAL MEDICINE SPECIALIST): If there is a lack of improvement in renal function and urine output with diuretic therapy, consider initiating renal replacement therapy (OCCUPATIONAL MEDICINE SPECIALIST) as needed for the management of fluid overload, electrolyte imbalances, or worsening azotemia. Daily Labs and Monitoring: Continue daily monitoring of renal function, including serum creatinine, blood urea nitrogen (BUN), electrolytes, and bicarbonate levels. Reassess fluid status, acid-base balance, and overall clinical condition. Supportive Care: Continue to manage the patient s blood pressure and volume status carefully to avoid further renal injury. Avoid nephrotoxic agents. Maintain adequate hydration and nutrition, and consider adjustments to medication doses based on renal function. This plan is designed to optimize renal recovery and prevent further deterioration in kidney function while closely monitoring for indications of the need for renal replacement therapy Please message me through EPIC chat with any questions or concerns. Joe Vasquez MD 01/24/2024 6:36 PM [facility] [place] [address] [place] [address], [address] [place] [address] Office: [phone] Associated Order(s): IP CONSULT TO ENDOCRINOLOGY Department of Internal Medicine Division of Endocrinology, Diabetes, & Metabolism Endocrinology Note Patient Name: Jorge Salamanca : 1945 AGE: 78 y.o. 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: No ASSESSMENT: DM2 without oysterman use of insulin Steroid induced hyperglycemia HTN HLD CKD Hypothyroidism PLAN: Transition off insulin gtt with Lantus 10 units q24 hours Start Humalog 0-6 tid SSI Continue home LT4 100mcg daily Decadron use in OR noted ICU goal <180 GMF goal <150 POCT BG ACHS Hypoglycemia management per protocol Carb controlled diet ANTICIPATED ENDOCRINE HOME GOING RECOMMENDATIONS: Optimized for Discharge from Endocrine standpoint: No Home Going Endocrine Rx Recommendations-- TBD; likely none Outpt Follow Up-- PCP SUBJECTIVE/HPI: CHIEF COMPLAINT: Chief Complaint Patient presents with Chest Pain Jorge Salamanca is a 78 year old male patient with a PMHx that includes HTN, HLD, T2DM and CKD. He presented to ED with complaints of chest pain and SOB. Symptoms had been intermittent since 2 days prior. He had chest pain previously that resolved with TUMS. The chest pain returned the following night but then radiated to back, arms and jaw. Symptoms did not resolve with TUMS this time which prompted his visit to the ED. Workup revealed slightly inverted T waves on EKG. Initial troponin was 0.19. He was admitted for suspected NSTEMI and taken to the bolt labeler. Cath showed multivessel CAD and Cardiothoracic Surgery was consulted for surgical evaluation. Agreeable to surgery, taken to OR on 01/23/[address] Johnson. 01/24/2024 Insulin gtt protocol running; current gtt requirements 1-1.5 units/hr; BG trends stable w/ the same Diminished intake w/ lunch Has home meter/supplies to test BG OP if needed Reports gradual weight loss since his half-way in 2009 re: diet; losing around 5 pound a year. At his highest weight was ~230 pounds; 175 pounds this admission. PCP Dc'd oral DM agents ~October 2023 re: improved trends Reports A1c has been high 5s most recently History of Type 2 Diabetes Age at Onset: Early 60s Circumstances surrounding dx: screening Previous hospitalizations for DM: Denies Home DM Medication Regimen: Untreated Previously Used DM Agents: Metformin Glimepiride Injection Sites/Rotation: NA Missed Medication Doses: NA Medication Side Effects: NA Medication Cost Concerns: NA Glucose Monitoring CGM use: No BG Monitoring: has home glucometer Recent Hypoglycemia: Denies Hypoglycemic Treatment Plan: NA Trend Review: Lab Results Component Value Date HGBA1C 6.0 (H) 01/18/2024 No results found for: TSH Glucose Date/Time Value Ref Range Status 01/24/2024 02:16 PM 159 (H) 70 - 100 mg/dL Final 01/24/2024 12:21 PM 170 (H) 70 - 100 mg/dL Final 01/24/2024 10:21 AM 140 (H) 70 - 100 mg/dL Final 01/24/2024 08:07 AM 144 (H) 70 - 100 mg/dL Final 01/24/2024 06:55 AM 141 (H) 70 - 100 mg/dL Final 01/24/2024 04:58 AM 120 (H) 70 - 100 mg/dL Final Complication History Retinopathy: Denies Neuropathy: Denies HTN: Endorses HLD: Endorses Renal: Endorses- CKD; follows w/ Nephrology Cardiac: Endorses-CAD s/p CABG x4 (01/23/24); NSTEMI CVA: Denies VENKATA: Denies Gastroparesis: Denies H/o Pancreatitis: Denies Impaired Wound Healing: Denies Amputation: Denies Metabolic Dysfunction Associated Steatotic Liver Disease: Denies Hypoglycemic Unawareness: Denies Hypothyroidism Review of Systems ROS negative except for those mentioned in HPI. OBJECTIVE: Vitals: 01/24/24 1300 01/24/24 1400 01/24/24 1500 01/24/24 1600 BP: 108/61 128/58 119/61 103/54 BP Location: Patient Position: Pulse: 78 88 80 76 Resp: 20 20 19 13 Temp: TempSrc: SpO2: 95% 93% 94% 94% Weight: Height: Physical Exam Vitals reviewed. Constitutional: General: He is not in acute distress. Appearance: Normal appearance. He is ill-appearing. Comments: Fatigue; falls asleep intermittently during questioning HENT: Head: Normocephalic. Cardiovascular: Rate and Rhythm: Normal rate. Comments: 79 bpm per tele BP 119/[address] CT x2 Pulmonary: Effort: Pulmonary effort is normal. No respiratory distress. Comments: O2 via NC; 94% Neurological: Mental Status: He is alert. Mental status is at baseline. Psychiatric: Mood and Affect: Mood normal. Judgment: Judgment normal. 24 hour intake/output: Intake/Output Summary (Last 24 hours) at 01/24/2024 1639 Last data filed at 01/24/2024 1200 Gross per 24 hour Intake 2790 ml Output 1611 ml Net 1179 ml Diet: Adult diet Regular; 5 carb choices (75 gm/meal) Medications (as per EMR): HomeMeds: Current Outpatient Medications Medication Instructions amLODIPine (NORVASC) 5 mg, Oral, Daily gabapentin (NEURONTIN) 600 mg, Oral, 2 times daily levothyroxine (SYNTHROID, LEVOXYL) 100 mcg, Oral, Daily before breakfast metoprolol succinate XL (TOPROL-XL) 100 mg, Oral, Daily omega-3 (FISH OIL) 1,000 mg, Oral, Daily Scheduled Meds:acetaminophen, 1,000 mg, Oral, q8h amLODIPine, 2.5 mg, Oral, Daily aspirin, 81 mg, Oral, Daily ceFAZolin, 2,000 mg, IntraVENous, q8h chlorhexidine, 15 mL, Mouth/Throat, BID gabapentin, 300 mg, Oral, BID [Held by provider] heparin, 5,000 Units, SubCUTAneous, BID insulin glargine, 10 Units, SubCUTAneous, q24h insulin lispro, 0-6 Units, SubCUTAneous, TID WC levothyroxine, 100 mcg, Oral, qAM AC Lidocaine, 1 patch, Topical, Daily metoclopramide, 10 mg, IntraVENous, q6h mupirocin, , Nasal, BID [START ON 01/25/2024] pantoprazole, 40 mg, Oral, qAM AC polyethylene glycol (PEG) 3350, 17 g, Oral, Daily rosuvastatin, 40 mg, Oral, Daily senna-docusate sodium, 2 tablet, Oral, Nightly simethicone, 80 mg, Oral, 4x daily sodium chloride 0.9%, 10 mL, IntraVENous, 2 times per day sodium chloride 0.9%, 5-40 mL, IntraCATHeter, q8h Continuous Infusions:lactated ringers, 250 mL, Last Rate: Stopped (01/24/24 0306) sodium chloride, 20 mL/hr, Last Rate: 20 mL/hr (01/23/24 1511) PRN Meds:PRN medications: calcium gluconate, dextrose, dextrose, glucagon (rDNA), glucose, HYDROmorphone OR HYDROmorphone, ipratropium-albuterol, lactated ringers, magnesium hydroxide, magnesium sulfate OR magnesium sulfate, naloxone, oxyCODONE OR oxyCODONE, potassium chloride OR potassium chloride OR potassium chloride, potassium chloride CR, sodium chloride, sodium chloride 0.9%, sodium chloride 0.9% Diagnostic Workup: I reviewed pertinent Laboratory results, Radiographic results, and Other Clinical Notes at the time of today's encounter. Labs: No components found for: LABA1C No components found for: EAG Lab Results Component Value Date NA 134 (L) 01/24/2024 K 4.8 01/24/2024 CL 104 01/24/2024 CO2 16 (L) 01/24/2024 BUN 24 (H) 01/24/2024 CREATININE 2.56 (H) 01/24/2024 GLUCOSE 242 (H) 01/24/2024 CALCIUM 8.3 (L) 01/24/2024 Lab Results Component Value Date CHOL 180 01/18/2024 Lab Results Component Value Date TRIG 100 01/18/2024 Lab Results Component Value Date HDL 33 (L) 01/18/2024 Lab Results Component Value Date LDLCALC 127 (H) 01/18/2024 No results found for: VLDL Lab Results Component Value Date CHOLHDLRATIO 5 01/18/2024 No results found for: [id number] No results found for: TSH, [id number], [id number], THYROIDAB Radiology reportsas per the Radiologist Radiology: POCT ACT Result Date: 01/21/2024 Performed by: [facility], [address] [place] [id number] CLIA ID: [id number] ECG 12 lead Sinus bradycardia Electronically Signed On 01-20-2024 18:31:49 EDT by Melina Bolaños Cardiac procedure Result Date: 01/18/2024 NSTEMI due to 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 LM with 70% distal stenosis LAD with ostial and proximal 85% stenosis, 80% mid segment stenosis and 50% distal stenosis Ramus intermedius with an 80% proximal stenosis and 70% mid to distal segment stenoiss Left circumflex with an 80% mid segment stenosis RCA with 99% distal segment stenosis at the bifurcation to the RPDA and RPLV. 90% stenosis of proximal RPL and 100% TURBINATED BONE GRINDER of ostial RPDA--distal vessel filling by [id number] collaterals. Normal LVEDP; no aortic stenosis. Transthoracic echocardiogram (TTE) complete with contrast, bubble, strain, and 3D PRN Result Date: 01/18/2024 Left Ventricle: Left ventricle size is normal. Mildly increased wall thickness. Normal left ventricular systolic function. EF by 2D Simpsons Biplane is 74%. Normal wall motion. Diastolic dysfunction present with normal LVEF. Right Ventricle: Right ventricle size is normal. Normal systolic function. Aortic Valve: Mild (1+) regurgitation. Left Atrium: Left atrium is mildly dilated. Pulmonary Arteries: Pulmonary artery was not well visualized. Mild pulmonary hypertension present. No comparison record. ECG 12 lead Sinus rhythm Atrial premature complexes Abnormal R-wave progression, early transition Repol abnrm suggests ischemia, lateral leads Electronically Signed On 01-18-2024 06:16:41 EDT by Jose Robledo XR chest 1 view Result Date: 01/17/2024 [facility] 1945 [id number] Exam Date/Time: 01/17/2024 23:47 Procedure: XR CHEST 1 VIEW Ordering Provider: ROBLEDO VISHNU Reason For Exam: acute chest pain CLINICAL INFORMATION: Chest pain. Portable view of the chest at 2340 hours is provided without comparison. FINDINGS: The cardiac silhouette and mediastinum are within normal limits. There are no focal infiltrates. However, tiny nodular densities are noted diffusely (miliary pattern). The visualized bones and soft tissues are grossly unremarkable. 1. No focal infiltrates. 2. Diffuse miliary pattern in the lung morrow. This is nonspecific but may indicate histoplasmosis among other entities. 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) Hyperlipemia Hypertension Past Surgical History: Past Surgical History: Procedure Laterality Date CARDIAC CATHETERIZATION Left 01/18/2024 CARDIAC CATHETERIZATION N/A 01/18/2024 Performed by Nicholas Arriaga MD at [facility] Cardiac Buffing And Polishing Wheel Repairer TONSILLECTOMY (HISTORICAL) Allergy(ies): Allergies Allergen Reactions Bee Venom Family History: Family History Problem Relation Name Age of Onset No Known Problems Brother No Known Problems Brother Bipolar disorder Sister Arthritis Sister Lung cancer Father Alzheimer's disease Mother Cancer Father Social History: Social History Tobacco Use Smoking status: Never Passive exposure: Current Smokeless tobacco: Never Tobacco comments: Quit smoking: smokes 3.5 packs daily Substance Use Topics Alcohol use: Not Currently Drug use: Never Portions of the information within this encounter were entered using an electronic dictation system. Best attempts were made to edit/proofread the information prior to note completion. Despite the review of information, some errors may remain. If there are questions related to the information contained within the note please contact the signing physician directly. I spent 30 minutes with the pt which involved coordination of care, medical evaluation, review of records, and/or counseling of the pt regarding his/her condition/disease state/prognosis on the date of this note. Associated attestation - Wero Sanchez MD - 01/24/2024 11:30 PM EDT I performed a history and physical examination of the patient. I have reviewed the patient's chart including pertinent history, medications, labs, radiology, and other reports. I reviewed the resident/HORTENCIA's note, agree with the documented findings and plan of care (with modifications noted if any), and discussed the management plan. Pt is s/p CABG 01/22. Presented with NSTEMI. Received dexamethasone IV postop. Pt extubated. Has been able to tolerate some food. No n/v. BG stable. Pt on insulin drip post op, currently at 1-1.5 units/hr. He has T2DM dx in the 1960s. Was on metformin and glimepiride. Got off meds last 11/18. He has lost 5 pounds a year the past 10 yrs through diet. 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 He has hypothyroidism, on levothyroxine 100 mcg daily. TSH normal recently. He has CKD 3b. No pressors. Records reviewed. Lab Results Component Value Date HGBA1C 6.0 (H) 01/18/2024 Lab Results Component Value Date GLUCOSE 156 (H) 01/24/2024 CALCIUM 8.6 01/24/2024 NA 139 01/24/2024 K 4.6 01/24/2024 CO2 17 (L) 01/24/2024 CL 107 01/24/2024 BUN 26 (H) 01/24/2024 CREATININE 2.59 (H) 01/24/2024 BP (!) 95/49 Pulse 75 Temp 36.2 C (97.2 F) (Temporal) Resp 13 Ht 5' 6 (1.676 m) Wt 175 lb 7.8 oz (79.6 kg) SpO2 96% BMI 28.32 kg/m awake, alert, not in distress, RRR, chest incision intact, good pulses, clear breath sounds, no rales, +chest tubes, abdomen soft, non-tender, no edema, no focal deficits, normal mood and affect. Dx: Type 2 DM, controlled, without long-term insulin use Stress hyperglycemia Hypothyroidism NSTEMI/CAD s/p CABG CKD 3b Plan: -will transition to subcutaneous insulin with Lantus 10 units daily and Humalog low dose SS -continue blood glucose monitoring -discussed postop hyperglycemia management and goals of therapy -patient will unlikely require any pharmacotherapy on discharge for DM -discussed importance of continued SMBG at home -continue levothyroxine 100 mcg daily -will follow Total time 45 minutes which include review of records, counseling, management, and coordination of care as documented in note. Associated Order(s): IP CONSULT TO DIETITIAN; IP CONSULT TO DIETITIAN Nutrition Assessment Type and Reason for Visit: Initial, Consult, Patient Education (s/p open heart surgery) Nutrition Recommendations/Plan: When appropriate, begin PO diet. Suggest goal of GUS diet. Monitor glucose for need of carbohydrate restriction Per MNT protocol, will trial Ensure Surgery BID to promote PO intake and post-op healing, when diet allows Provided heart healthy diet handout at bedside with [facility] RD phone number. Will monitor appropriateness for education needs assessment at follow up visit, as able RD will monitor overall nutrition status and will follow weekly Malnutrition Assessment: Malnutrition Status: At risk for malnutrition (Comment) (s/p open heart surgery, NPO) Nutrition Assessment: Per chart: pt with PMH including HTN, HLD, type 2 DM, CKD stage 3B who presents now for evaluation of chest pain and dyspnea and noted to have elevation of troponins. He says he noticed dyspnea with exertion 2 days ago while walking to [facility] to visit his who is an inpatient there. He then had chest pain while in bed that night which was relieved with TUMS. The next day he was more tired and when he went to bed, he again had chest pain radiating into his back and arms. His symptoms did not resolve with TUMS so he came to the [facility] ER. His Tn of 2. LHC revealed MVCAD. Echo - EF 74% WNL. Patient was transferred from [facility] to [facility] for CABG evaluation. He underwent CABG x4, BIMA's, LEVH, sternal plating, SHARMAINE with Dr. Johnson on 01/22. Extubated. Remains NPO. Gastric bubble noted on CXR. Pt is observed sleeping in chair- RD did not disturb. Provided heart healthy diet handout at bedside with [facility] phone number. Estimated Daily Nutrient Needs: Energy Requirements Based On: Kcal/kg Weight Used for Energy Requirements: [place] (25-30 kcal/kg) Weight for Energy Calculation (kg): 64.4 kg Total Energy Requirements (kcals/day): 2348-0342 Weight Used for Protein Requirements: [place] (1.2-1.5 g/kg) Weight in Kg Used for Protein Requirements: 64.4 kg Estimated Total Protein (g/day): 77-97 Estimated Daily Total Fluid (ml/day): per MD Nutrition Related Findings: Lives with: Alone Teeth: Intact Room Service Room Service: Selective Sheng Scale Score: 15. Wound Type: Surgical Incision Net IO Since Admission: 1,887.82 mL [01/24/24 1216] Edema: RUE Edema: None, LUE Edema: None, RLE Edema: None, LLE Edema: None Bowel Sounds (All Quadrants): Hypoactive Abdomen Inspection: Soft Last BM Date: 01/17/24 O2 Delivery Method: Nasal cannula, FiO2 (%): 50 %, O2 Flow Rate (L/min): 2 L/min Labs and meds reviewed: acetaminophen, 1,000 mg, Oral, q8h amLODIPine, 2.5 mg, Oral, Daily aspirin, 81 mg, Oral, Daily ceFAZolin, 2,000 mg, IntraVENous, q8h chlorhexidine, 15 mL, Mouth/Throat, BID gabapentin, 300 mg, Oral, BID [Held by provider] heparin, 5,000 Units, SubCUTAneous, BID levothyroxine, 100 mcg, Oral, qAM AC Lidocaine, 1 patch, Topical, Daily metoclopramide, 10 mg, IntraVENous, q6h mupirocin, , Nasal, BID [START ON 01/25/2024] pantoprazole, 40 mg, Oral, qAM AC polyethylene glycol (PEG) 3350, 17 g, Oral, Daily rosuvastatin, 40 mg, Oral, Daily senna-docusate sodium, 2 tablet, Oral, Nightly simethicone, 80 mg, Oral, 4x daily sodium chloride 0.9%, 10 mL, IntraVENous, 2 times per day sodium chloride 0.9%, 5-40 mL, IntraCATHeter, q8h insulin regular, 1-50 Units/hr, Last Rate: 1 Units/hr (01/24/24 1000) lactated ringers, 250 mL, Last Rate: Stopped (01/24/24 0306) nitroglycerin, 5-300 mcg/min, Last Rate: 5 mcg/min (01/23/24 1510) sodium chloride, 20 mL/hr, Last Rate: 20 mL/hr (01/23/24 1511) BMP: Recent Labs 01/23/24 0506 01/23/24 1314 01/23/24 1638 01/24/24 0009 NA 138 138 139 142 K 4.0 4.5 4.3 4.6 CL 106 113* 113* 112* CO2 23 19* 17* 15* BUN 25* 21* 20 21* CREATININE 2.04* 1.86* 1.94* 2.18* GLUCOSE 123* 120* 135* 119* CALCIUM 8.5 8.7 8.1* 8.3* MG 2.0 3.9* 2.9* 2.6* PHOS 4.1 2.7 -- 3.6 Recent Labs 01/24/24 0202 01/24/24 0304 01/24/24 0458 01/24/24 0655 01/24/24 0807 01/24/24 1021 POCGLU 126* 123* 120* 141* 144* 140* Lab Results Component Value Date HGBA1C 6.0 (H) 01/18/2024 Lab Results Component Value Date EFBP 74 01/18/2024 Lab Results Component Value Date CHOL 180 01/18/2024 HDL 33 (L) 01/18/2024 TRIG 100 01/18/2024 Current Nutrition Therapies: No diet orders on file Current Oral Intake Average Meal Intake: 76-100% Average Supplements Intake: None Ordered Anthropometric Measures: Height: 167.6 cm (5' 6) Current Body Weight: 79.6 kg (175 lb 7.8 oz) (01/23) Admission Body Weight: 79.9 kg (176 lb 1.6 oz) (01/22 standing scale) Usual Body Weight: (188# on 05/15/23, 186# on 12/13/23) [place] Body Weight (lbs) (Calculated): 142 lbs [place] Body Weight (Kg) (Calculated): 65 kg % [place] Body Weight (Calculated): 123.6 % BMI (kg/m2) (Calculated): 28.3 BMI Categories: Overweight (BMI 25.0-29.9) Wt Readings from Last 10 Encounters: 01/24/24 79.6 kg (175 lb 7.8 oz) Nutrition Diagnosis: Increased nutrient needs related to increase demand for energy/nutrients as evidenced by (surgical wounds s/p open heart surgery) Nutrition Interventions: Food and/or Nutrient Delivery: Start Oral Diet, Start Oral Nutrition Supplement Nutrition Education/Counseling: Education initiated, Education needed Coordination of Nutrition Care: Continue to monitor while inpatient Goals: Goals: PO intake 75% or greater, by next RD assessment, Initiate PO diet Nutrition Monitoring and Evaluation: Behavioral-Environmental Outcomes: Knowledge or Skill Food/Nutrient Intake Outcomes: Food and Nutrient Intake, Supplement Intake Physical Signs/Symptoms Outcomes: Biochemical Data, GI Status, Skin, Weight Discharge Planning: Too soon to determine Janee Martinez RD, LD Contact: *[phone] or via [employer] Associated Order(s): IP CONSULT TO CARDIAC REHAB Received referral and reviewed chart. Unable to discuss Phase II Cardiopulmonary Rehab Referral with Jorge Salamanca at this time. Will follow to discuss program when appropriate. Patient will be contacted at home if discharged prior to discussion. Images from the original note were not included. [facility]: Critical Care Consultation Note Date: 01/23/24 PATIENT NAME: Jorge Salamanca : 1945 (78 y.o.) Reason for Consult: Critical Care & Vent Management HPI: Jorge Salamanca is a 78 year old male patient with a PMHx that includes HTN, HLD, T2DM and CKD. He presented to ED with complaints of chest pain and SOB. Symptoms had been intermittent since 2 days prior. He had chest pain previously that resolved with TUMS. The chest pain returned the following night but then radiated to back, arms and jaw. Symptoms did not resolve with TUMS this time which prompted his visit to the ED. Workup revealed slightly inverted T waves on EKG. Initial troponin was 0.19. He was admitted for suspected NSTEMI and taken to the bolt labeler. Cath showed multivessel CAD and Cardiothoracic Surgery was consulted for surgical evaluation. Agreeable to surgery, taken to OR on 01/23/[address] Johnson. Surgery: 01/23/24: Dr. Johnson- CABG x4, BIMA's, LEVH, sternal plating, SHARMAINE Interval History: 01/23/24: POD #0: Patient arrived to the unit, intubated and sedated. Surgical hand off completed below. Surgery Hand Off: Arrival Time in CTVICU: 1415 Complications/Pertinent Events: Last Paralytic: 1111 Medications given in route: Gtts OR report Nitroglycerin: 5mcg/kg/min Propofol: 25mcg/kg/min Insulin: off Amicar: 29 Current gtts upon arrival Nitroglycerin: 5mcg/kg/min Propofol: 25mcg/kg/min Insulin: off Amicar: 29 Devices: Epicardial wires: yes [x] no [] IABP: yes [] no [x] LVAD: yes [] no [x] Speed: Equipment: Back up controller yes [] no [x] Blood Transfusions Intra Op: yes [x] no [] CellSaver: Yes- 400mL Vital Signs including Cardiac Numbers (if indicated) at Conclusion of Hand-off OR CTVICU CO 4.58 4.57 CI 2.44 2.42 CVP 11 7 SVR 955 1137 PAP 21/04 Additional Interventions/Misc during Handoff Review of Systems Unable to perform ROS: Intubated Allergies: Bee venom Past Medical History: has a past medical history of 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 Past Surgical History: has a past surgical history that includes Tonsillectomy; Cardiac catheterization (Left, 01/18/2024); and Cardiac catheterization (N/A, 01/18/2024). Social History: reports that he has never smoked. He has been exposed to tobacco smoke. He has never used smokeless tobacco. He reports that he does not currently use alcohol. He reports that he does not use drugs. Family History: family history includes Alzheimer's disease in his mother; Arthritis in his sister; Bipolar disorder in his sister; Cancer in his father; Lung cancer in his father; No Known Problems in his brother and brother. Medications: Prior to Admission medications Medication Sig Start Date End Date Taking? Authorizing Provider amLODIPine (Norvasc) 5 MG tablet Take 5 mg by mouth before bedtime. 05/15/23 Historical Provider, gabapentin (Neurontin) 300 MG capsule Take 600 mg by mouth 2 times daily. 12/18/23 Historical Provider, levothyroxine (Synthroid, Levoxyl) 100 MCG tablet Take 100 mcg by mouth every morning (before breakfast). 05/15/23 Historical Provider, metoprolol succinate XL (Toprol-XL) 100 MG 24 hr tablet Take 100 mg by mouth daily. 05/15/23 Historical Provider, omega-3 (Fish Oil) 1000 MG capsule Take 1,000 mg by mouth daily. Historical Provider, Objective: BP 134/67 Pulse 62 Temp 36.4 C (97.5 F) (Temporal) Resp 18 Ht 5' 6 (1.676 m) Wt 176 lb (79.8 kg) SpO2 94% BMI 28.41 kg/m Intake/Output Summary (Last 24 hours) at 01/23/2024 1422 Last data filed at 01/23/2024 1348 Gross per 24 hour Intake 3374 ml Output 1500 ml Net 1874 ml Physical Exam Vitals reviewed. Constitutional: Interventions: He is sedated and intubated. HENT: Mouth/Throat: Comments: ETT/OG. Neck: Comments: Central line and [place]. Cardiovascular: Rate and Rhythm: Normal rate and regular rhythm. Pulses: Normal pulses. Heart sounds: No murmur heard. Pulmonary: Effort: He is intubated. Breath sounds: No wheezing, rhonchi or rales. Comments: Ventilator sedated. Abdominal: General: There is no distension. Palpations: Abdomen is soft. Comments: Chest tubes. Genitourinary: Comments: Ott. Musculoskeletal: Right lower leg: No edema. Skin: General: Skin is warm and dry. Capillary Refill: Capillary refill takes less than 2 seconds. Findings: Bruising present. Comments: Incisions without drainage. Diagnostics: Reviewed in EMR Labs: Reviewed in EMR BMP: Recent Labs 01/22/24 0447 01/23/24 0506 01/23/24 1314 NA 135 138 138 K 4.3 4.0 4.5 CL 110* 106 113* CO2 20* 23 19* BUN 22* 25* 21* CREATININE 1.90* 2.04* 1.86* CALCIUM 8.5 8.5 8.7 MG 2.1 2.0 3.9* PHOS 3.7 4.1 2.7 CBC: Recent Labs 01/22/24 0447 01/23/24 0506 01/23/24 1314 WBC 6.9 8.8 6.3 HGB 13.0 14.4 9.3 8.6* HCT 39.8* 44.6 26.0* PLT 144 195 76* MCV 85.0 85.0 85.2 RDW 13.7 13.7 13.7 INR: Recent Labs 01/23/24 1314 INR 1.6* Assessment: Multivessel CAD s/p CABG NSTEMI CKD HTN Hyperlipidemia Post operative Pulm Management: Normal Post-operative Course Post-operative Atrial Fibrillation: []Yes [x] No Acute blood loss anemia/consumptive thrombocytopenia Plan: - Sugamadex x1 - Wean sedation as able, goal RASS -1 to 0 - SAT/SBT when appropriate-> extubate - Scheduled lidocaine patches and acetaminophen, PRN IV dilaudid and PO oxy - No toradol d/t CKD - Nitroglycerin for SUHAS graft 5-10mcg/kg/min as BP can tolerate - Hemodynamic goals: CI >2.0, SBP 90-130 mmHg, MAP 60-75 - PRN Hypertension 1st option nitroprusside -PRN Hypotension CI >2.0 euvolemic with low SVR- Levophed gtt CI <2.0 euvolemic - Epinephrine gtt - Temp pacing wires/mode: v-wires to backup - Chest tubes: no air leak or fluctuation noted, suction -20 - Cefazolin - surgical prophy for 5 doses total - Wean to Extubation: Arrival Time in unit: 1415 - Vent: ACVC+, TV 6ml/kg/min, rate 12, fio2 100% PEEP 8 VAP protocol: HOB >30 degrees; peridex BID - HgbA1c: 6.0 - Blood glucose 95 - Insulin gtt; per endo/protocol - GI prophy: Protonix IV daily Critical Care time spent 30 minutes. The time involved in the performance of this care was exclusive of separately billable procedures, teaching time and treating other patients. The time was spent personally by the attending physician for the following activities: examination of the patient, ordering and/or performing treatment, reviewing the laboratory and radiographic studies, and if applicable, ventilator management and blood gas interpretation. Patient treatment plan and plan of care discuss with Dr. Bruce Arriaga Associated attestation - Bruce Scott MD - 01/23/2024 4:22 PM EDT I have personally performed a face to face diagnostic evaluation on this patient today on 01/23/24. Labs, imaging studies, and electronic medical record notes on [facility] have been reviewed by me. This note documented and discussed by the []senior loan officer []Fellow [x] HORTENCIA reflects my history, exam and medical decision making. I have reviewed and agree with the care plan. Changes were made in the orders as necessary. ROS documentation was reviewed and negative unless otherwise stated in the HPI. My history, exam, assessment and plan are as follows: Some elements copied from my notes, which have been updated where appropriate. All reflect current medical decision making from 01/23/24. Physical Exam listed was completed in entirely on 01/23/24 and is unchanged except where noted. Critical care time spent excluding separately billable procedures is 33 minutes. Sedated, intubated, PERRL Heart RRR Lungs with rhonchi bilaterally, no wheezes Abd soft Multivessel CAD, NSTEMI, 01/22 s/p CABG x 4 Anemia, thrombocytopenia expected post op HTN, HLD DM2, hypothyroidism CKD[facility]b [facility] wean sedation for SBT as tolerated Transfuse prn Restart home levothyroxine in am Associated Order(s): IP CONSULT TO NEPHROLOGY Images from the original note were not included. Nephrology Consult Note Consult date: 01/21/24 10:39 AM Patient: Jorge Salamanca Room number: T1-105/T1-105 A Date of Admit: 01/17/2024 LOS: 3 days Referring physician: Mark Holguin MD Outpatient Silk Trimmer: Dr. Light/[facility] Reason for Consult CKD/ALEXANDER risk with OHS Chief complaint: NSTEMI Assessment / Plan 78 y.o. male with a past medical history of CKD, DM, HTN, DLD who was admitted on 01/17/2024 with chest pain, found to have NSTEMI with multivessel CAD on [facility]. Consulted for pre-op risk stratification. #NSTEMI #CKD3b #Hyponatremia #Metabolic acidosis #DM #HTN -Did receive contrast with [facility] 01/17 however current Cr 1.84 is consistent with recent outpatient labs- Cr 1.91 11/2023 and 1.96 08/2022. Slight hyponatremia and depressed serum bicarb may be sequela of baseline chronic kidney disease. Open heart surgery ALEXANDER risk benefit discussion: We discussed the risk of kidney injury including potential need for dialysis post open heart surgery. He appears to be at his baseline renal function. Per Jaleel score he is lower risk for post-operative dialysis need at 1.8%. We discussed that potential HD need may not be permanent and that there is probably a greater chance of more mild kidney injury not requiring dialysis. Also discussed risk to future kidney function if heart function worsened. At this time patient does not have any renal related concerns. He appears to be at his baseline risk for kidney injury after open heart surgery. Thank you for allowing us to participate in the care of this patient. We will follow peripherally. Please call with any questions. Danielito Medina MD [facility] ([facility]) Office phone: [phone] Office fax: [phone] Pager: [phone] 01/21/24 History of Present Illness oJrge Salamanca is a 78 y.o. male with a past medical history of CKD, DM, HTN, DLD who was admitted on 01/17/2024 with chest pain, found to have NSTEMI with multivessel CAD on [facility]. Consulted for pre-op risk stratification. Patient presented to [facility] with chest pain and exertion dyspnea. Had elevated trops in ED. Cr 2 around recent baseline on arrival.Taken to bolt labeler which revealed multivessel CAD. TTE with diastolic dysfunction, preserved EF. Transferred to [facility] for possible CABG. Patient is pleasant at bedside today. No current chest pain/SOB. 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 TONSILLECTOMY (HISTORICAL) Family History Family History Problem Relation Name Age of Onset No Known Problems Brother No Known Problems Brother Bipolar disorder Sister Arthritis Sister Lung cancer Father Alzheimer's disease Mother Cancer Father Social History Social History Socioeconomic History Marital status: Tobacco Use Smoking status: Never Passive exposure: Current Smokeless tobacco: Never Tobacco comments: Quit smoking: smokes 3.5 packs daily Substance and Sexual Activity Alcohol use: Not Currently Drug use: Never Social Determinants of Health Financial Resource Strain: Low Risk (01/18/2024) Overall Financial Resource Strain (CARDIA) Difficulty of Paying Living Expenses: Not very hard Food Insecurity: No Food Insecurity (01/18/2024) Hunger Vital Sign Worried About Running Out of Food in the Last Year: Never true Ran Out of Food in the Last Year: Never true Transportation Needs: No Transportation Needs (01/18/2024) PRAPARE - Transportation Lack of Transportation (Medical): No Lack of Transportation (Non-Medical): No Physical Activity: Insufficiently Active (01/18/2024) Exercise Vital Sign Days of Exercise per Week: 2 days Minutes of Exercise per Session: 30 min Stress: Stress Concern Present (01/18/2024) [employer] [place] [employer] - Occupational Stress Questionnaire Feeling of Stress : To some extent Social Connections: Unknown (01/18/2024) Social Connection and Isolation Panel [NHANES] Marital Status: Intimate Partner Violence: Not At Risk (01/18/2024) Humiliation, Afraid, Rape, and Kick questionnaire Fear of Current or Ex-Partner: No Emotionally Abused: No Physically Abused: No Sexually Abused: No Housing Stability: Low Risk (01/18/2024) Housing Stability Vital Sign Unable to Pay for Housing in the Last Year: No Number of Times Moved in the Last Year: 0 Homeless in the Last Year: No Medications Scheduled Meds:aspirin, 81 mg, Oral, Daily atorvastatin, 80 mg, Oral, Daily gabapentin, 300 mg, Oral, BID levothyroxine, 100 mcg, Oral, qAM AC metoprolol tartrate, 25 mg, Oral, BID pantoprazole, 20 mg, Oral, qAM AC Continuous Infusions:heparin, 5-30 Units/kg/hr, Last Rate: 12 Units/kg/hr (01/21/24 0315) Allergies Allergies Allergen Reactions Bee Venom Review of Systems All systems reviewed and neg except as above. Vital Signs Vitals: 01/21/24 0830 01/21/24 0900 01/21/24 0930 01/21/24 1000 BP: 155/76 BP Location: Patient Position: Pulse: 75 58 60 59 Resp: Temp: TempSrc: SpO2: 97% 97% 95% 99% Weight: Height: Wt Readings from Last 3 Encounters: 01/21/24 81.5 kg (179 lb 10.8 oz) Admit Wt: Weight: 81.6 kg (180 lb) Estimated body mass index is 29 kg/m as calculated from the following: Height as of this encounter: 1.676 m (5' 6). Weight as of this encounter: 81.5 kg (179 lb 10.8 oz). I/O last 3 completed shifts: In: 3114 (38.2 mL/kg) [P.O.:1740; I.V.:1374 (16.9 mL/kg)] Out: 3050 (37.4 mL/kg) [Urine:3050 (1 mL/kg/hr)] Weight: 81.5 kg Net IO Since Admission: 429.53 mL [01/21/24 1039] Physical Exam General: A&O x 3, NAD HEENT: Sclera clear, EOMI, MMM, Nose/ears/hearing grossly normal Neck: Supple, trachea midline, no mass, no TM Heart: RRR, no rub/heave Lungs: Clear bilaterally, unlabored Abd: Soft, (+) BS, non-tender Ext: No edema Neuro: No tremor/myoclonus Skin: warm and dry, no rash LABS Labs reviewed. Recent Labs 01/18/24215301/20/241 01/21/24 0308 WBC 6.6 7.3 7.3 HGB 14.6 12.6* 13.4 HCT 44.8 38.2* 40.6 MCV 87.5 84.3 83.7 PLT 160 130* 146 Recent Labs 01/18/24215501/20/24 0441 01/21/24 0308 NA 135 135 134* K 4.3 4.2 4.5 CL 108* 109* 109* CO2 19* 23 20* BUN 20 20 24* CREATININE 1.91* 1.89* 1.84* GLUCOSE 131* 113* 122* CALCIUM 8.4 8.1* 8.2* MG 1.8 1.9 1.8 PHOS 3.2 3.6 3.6 ANIONGAP 7 4 5 Diagnostic Studies [facility] 01/17 NSTEMI due to 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 LM with 70% distal stenosis LAD with ostial and proximal 85% stenosis, 80% mid segment stenosis and 50% distal stenosis Ramus intermedius with an 80% proximal stenosis and 70% mid to distal segment stenoiss Left circumflex with an 80% mid segment stenosis RCA with 99% distal segment stenosis at the bifurcation to the RPDA and RPLV. 90% stenosis of proximal RPL and 100% TURBINATED BONE GRINDER of ostial RPDA--distal vessel filling by hzon-rh-czuul collaterals. Normal LVEDP; no aortic stenosis. I personally reviewed History and Physical, MAR, labs and imaging as above. Associated Order(s): IP CONSULT TO CARDIAC REHAB Received referral and reviewed chart. Unable to discuss Phase II Cardiopulmonary Rehab Referral with Jorge Salamanca at this time. Will follow to discuss program when appropriate after decision about PCI or CABG has been made. Patient will be contacted at home if discharged prior to discussion. Associated Order(s): IP CONSULT TO CARDIOTHORACIC SURGERY Images from the original note were not included. [facility]: Cardiothoracic Surgery Consultation Note PATIENT NAME: Joreg Salamanca : 1945 (78 y.o.) TODAY'S DATE: 01/19/2024 DATE OF ADMISSION: 01/17/2024 11:29 PM Reason for Consult: Multivessel CAD Consulting Provider: Dr. Gilbert Subjective: CC: Chest pain HPI: Jorge Salamanca is a 78 year old male patient with a PMHx that includes HTN, HLD, T2DM and CKD. He presented to ED with complaints of chest pain and SOB. Symptoms had been intermittent since 2 days prior. He had chest pain previously that resolved with TUMS. The chest pain returned the following night but then radiated to back, arms and jaw. Symptoms did not resolve with TUMS this time which prompted his visit to the ED. Workup revealed slightly inverted T waves on EKG. Initial troponin was 0.19. He was admitted for suspected NSTEMI and taken to the bolt labeler. Cath showed multivessel CAD and Cardiothoracic Surgery was consulted for surgical evaluation. Patient sitting up in chair, family at bedside. Denies chest pain and shortness of breath, full ROS below. Discussed heart cath and possible interventions including PCI and CABG. Spent time educating on both. He lives with his , who is currently admitted to [facility] as well. Has a sister that lives near by. 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 He denies smoking, denies ETOH and recreational drugs. Heart Cath (01/17/24) Conclusion NSTEMI due to 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 LM with 70% distal stenosis LAD with ostial and proximal 85% stenosis, 80% mid segment stenosis and 50% distal stenosis Ramus intermedius with an 80% proximal stenosis and 70% mid to distal segment stenoiss Left circumflex with an 80% mid segment stenosis RCA with 99% distal segment stenosis at the bifurcation to the RPDA and RPLV. 90% stenosis of proximal RPL and 100% TURBINATED BONE GRINDER of ostial RPDA--distal vessel filling by ymif-tt-vsool collaterals. Normal LVEDP; no aortic stenosis. Transthoracic Echo (01/18/24) Interpretation Summary Left Ventricle: Left ventricle size is normal. Mildly increased wall thickness. Normal left ventricular systolic function. EF by 2D Simpsons Biplane is 74%. Normal wall motion. Diastolic dysfunction present with normal LVEF. Right Ventricle: Right ventricle size is normal. Normal systolic function. Aortic Valve: Mild (1+) regurgitation. Left Atrium: Left atrium is mildly dilated. Pulmonary Arteries: Pulmonary artery was not well visualized. Mild pulmonary hypertension present. Review of Systems Constitutional: Negative for chills, diaphoresis and fever. Respiratory: Negative for cough, shortness of breath and wheezing. Cardiovascular: Positive for chest pain. Negative for palpitations and leg swelling. Gastrointestinal: Negative for abdominal distention, abdominal pain, nausea and vomiting. Neurological: Negative for dizziness and light-headedness. 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 Past Surgical History: has a past surgical history that includes Tonsillectomy and Cardiac catheterization (Left, 01/18/2024). Social History: reports that he has never smoked. He has been exposed to tobacco smoke. He has never used smokeless tobacco. He reports that he does not currently use alcohol. He reports that he does not use drugs. Family History: family history includes Alzheimer's disease in his mother; Arthritis in his sister; Bipolar disorder in his sister; Cancer in his father; Lung cancer in his father; No Known Problems in his brother and brother. Medications: Prior to Admission medications Medication Sig Start Date End Date Taking? Authorizing Provider amLODIPine (Norvasc) 5 MG tablet Take 5 mg by mouth before bedtime. 05/15/23 Historical Provider, gabapentin (Neurontin) 300 MG capsule Take 600 mg by mouth 2 times daily. 12/18/23 Historical Provider, levothyroxine (Synthroid, Levoxyl) 100 MCG tablet Take 100 mcg by mouth every morning (before breakfast). 05/15/23 Historical Provider, metoprolol succinate XL (Toprol-XL) 100 MG 24 hr tablet Take 100 mg by mouth daily. 05/15/23 Historical Provider, omega-3 (Fish Oil) 1000 MG capsule Take 1,000 mg by mouth daily. Historical Provider, Objective: Vitals: BP: 143/68, MAP (mmHg): 87, BP Method: Automatic Heart Rate: 64 Resp: 15 Temp: 36.8 C (98.2 F), Temp Source: Temporal BMI (Calculated): 29.69 Last BM Date: 01/17/24 Intake/Output Summary (Last 24 hours) at 01/19/2024 1204 Last data filed at 01/19/2024 1001 Gross per 24 hour Intake 880 ml Output 1205 ml Net -325 ml Physical Exam Vitals reviewed. Constitutional: General: He is not in acute distress. Appearance: He is not ill-appearing or diaphoretic. Cardiovascular: Rate and Rhythm: Normal rate and regular rhythm. Pulses: Normal pulses. Heart sounds: No murmur heard. Pulmonary: Effort: Pulmonary effort is normal. Breath sounds: No wheezing, rhonchi or rales. Abdominal: General: There is no distension. Palpations: Abdomen is soft. Tenderness: There is no abdominal tenderness. Musculoskeletal: General: No swelling. Skin: General: Skin is warm and dry. Capillary Refill: Capillary refill takes less than 2 seconds. Findings: Bruising (Cath site.) present. Neurological: General: No focal deficit present. Mental Status: He is alert. Diagnostics: Reviewed in EMR Labs: Reviewed in EMR BMP: Recent Labs 01/17/24 2352 01/18/24 0613 01/18/24 2156 NA 141 139 135 K 3.8 4.2 4.3 CL 108* 108* 108* CO2 19* BUN 18 20 20 CREATININE 2.02* 2.03* 1.91* CALCIUM 8.6 8.8 8.4 MG -- -- 1.8 PHOS -- -- 3.2 CBC: Recent Labs 01/18/24 0613 01/18/24 1521 01/18/24 2154 WBC 7.8 6.3 6.6 HGB 13.1 13.3 14.6 HCT 39.5* 40.2 44.8 PLT 136* 150 160 MCV 85.7 85.7 87.5 RDW 13.5 13.7 13.7 Assessment: Multivessel CAD NSTEMI CKD HTN Hyperlipidemia Plan: Discussed CABG and PCI. Educated on surgery and anticipated recovery. -No decision made, would like to speak with Surgeon first. Will order additional testing. -Echo done. -Carotid ultrasounds, CT chest, vein mapping, bedside spirometry. OK for heparin gtt. Will discuss with on-call Cardiothoracic Surgeon. Anti-Plt/Anti-coagulation: (if yes date/time last dose if known) [] - PLAVIX: [] - BRILINTA: [] - NOAC: [] - COUMADIN: [x] - Not on any of the above medications. Home meds: STS Score: Personally Reviewed: [x]Epic notes [x]Radiology studies [x]Labs [x]EKG [x]Other A total of 45 minutes were spent between the [id number] encounter, physical exam, reviewing the medical history, coordinating the patient's care, counseling/educating the patient, ordering medications/test/procedures, interpreting results and documenting clinical information in the patients electronic health record on the day of the encounter. The patient was seen and examined independently and relevant data reviewed by myself. A full chart review was performed. Associated Order(s): IP CONSULT TO CARDIOLOGY [facility] [place] [facility] [place] [place]Electrophysiology Consult Note Reason for Consult/Chief Complaint: NSTEMI Consulting provider: Martha Zuniga nursing specialist: None History of Present Illness: Jorge Salamanca is a 78 y.o. male with a history of HTN, HLD, type 2 DM, CKD stage 3B who presents now for evaluation of chest pain and dyspnea and noted to have elevation of troponins. He says he noticed dyspnea with exertion 2 days ago while walking to [facility] to visit his who is an inpatient there. He then had chest pain while in bed that night which was relieved with TUMS. The next day he was more tired and when he went to bed, he again had chest pain radiating into his back and arms. This was a pressure sensation, no diaphoresis, N/V, syncope. His symptoms did not resolve with TUMS so he came to the ER. His Tn is up to 2 and he is now pain free. His echo looks normal. Renal function at baseline. Assessment/Plan NSTEMI: This is likely a type 1 event, ACS. He is now pain free and no significant WMA on echo. Given rest symptoms and high risk features ( elevated Cr, hx DM) favor LHC and revascularization. I discussed with patient and he agrees to proceed. LHC and revasc Keep NPO, hold heparin gtt ad operations coordinator to cath Continue ASA, statin and metoprolol Hydrate precath and minimize dye CKD stage 3B: His CR is at baseline. He is on no nephrotoxic meds but will get some IVP dye with cath. Will hydrate and try to give as little dye as possible. Medications: aspirin, 81 mg, Oral, Daily atorvastatin, 80 mg, Oral, Daily metoprolol tartrate, 25 mg, Oral, BID Infusion Medications: heparin, 5-30 Units/kg/hr, Last Rate: 13 Units/kg/hr (01/18/24 0644) Physical Examination: Vitals: 01/18/24 0249 01/18/24 0614 01/18/24 0750 01/18/24 0911 BP: 145/70 136/73 BP Location: Right arm Patient Position: Lying Pulse: 59 59 Resp: 18 18 Temp: 36.7 C (98.1 F) 36.2 C (97.2 F) TempSrc: Temporal Temporal SpO2: 97% 96% Weight: 180 lb (81.6 kg) 180 lb (81.6 kg) Height: 5' 6 (1.676 m) 5' 6 (1.676 m) Intake/Output Summary (Last 24 hours) at 01/18/2024 0932 Last data filed at 01/18/2024 0754 Gross per 24 hour Intake -- Output 450 ml Net -450 ml Wt Readings from Last 3 Encounters: 01/18/24 180 lb (81.6 kg) Physical Exam Constitutional: No distress. well nourished. well hydrated Psychiatric: A &O x 3. Medical insight good NMT: Oral mucosa is pink and moist Neck: no JVD. Respiratory: Lungs are clear Cardiac exam: Rhythm: RRR ; Normal S1 and S2 Murmur: no Other: No rub; S4 gallop Vasc: Peripheral pulses 2+ and equal Abdomen: BS+, soft, NT Extremities: no LE edema Skin: Warm to touch and well perfused Laboratory Tests: Recent Labs 01/17/24 2352 01/18/24 0613 NA 141 139 K 3.8 4.2 CL 108* 108* CO2 BUN 18 20 CREATININE 2.02* 2.03* EGFR 33.5* 33.4* Recent Labs 01/17/24 2352 01/18/24 0324 01/18/24 0613 TROPONINI 0.193* 1.022* 2.165* Recent Labs 01/17/24 23501/18/24 0613 WBC 6.4 7.8 HGB 14.5 13.1 HCT 43.8 39.5* MCV 86.1 85.7 PLT 152 136* Lab Results Component Value Date CHOL 180 01/18/2024 Lab Results Component Value Date HDL 33 (L) 01/18/2024 Lab Results Component Value Date LDLCALC 127 (H) 01/18/2024 Lab Results Component Value Date TRIG 100 01/18/2024 Recent Labs 01/17/242351 BNP 1,340* No results for input(s): INR in the last 72 hours. Results from last 7 days Lab Units 01/18/24 0613 AST U/L 31 ALT U/L 12 Radiology: CXR: personally reviewed: Normal cardiac silhouette, miliary pattern diffusely Cardiac Tests Personally Reviewed: ECG 12-LEAD 01/18/2024 6:16 AM (Final) Impression > I agree with below Sinus rhythm Atrial premature complexes Abnormal R-wave progression, early transition Repol abnrm suggests ischemia, lateral leads Electronically Signed On 01-18-2024 06:16:41 EDT by Jose Robledo Telemetry findings: NSR Reports reviewed: Last Echo 01/17/24 TRANSTHORACIC ECHOCARDIOGRAM (TTE) COMPLETE (CONTRAST/BUBBLE/3D PRN) 01/18/2024 9:23 AM (Final) Interpretation Summary Left Ventricle: Left ventricle size is normal. Mildly increased wall thickness. Normal left ventricular systolic function. EF by 2D Simpsons Biplane is 74%. Normal wall motion. Diastolic dysfunction present with normal LVEF. Right Ventricle: Right ventricle size is normal. Normal systolic function. Aortic Valve: Mild (1+) regurgitation. Left Atrium: Left atrium is mildly dilated. Pulmonary Arteries: Pulmonary artery was not well visualized. Mild pulmonary hypertension present. No comparison record. Signed by: Rafita Fernandez MD on 01/18/2024 9:23 AM Last Cath No results found for this or any previous visit. Last Stress Test No results found for this or any previous visit. Last EP study No results found for this or any previous visit. MELINA SCORE: 125 ( 9% six month risk) Gustavo Azar MD DATE of SERVICE: 01/18/2024 documented in this encounter [facility] 01-23-2024 Note [facility]24 Note [facility] 01-23-2024 Note [facility] 01-18-2024 History of Presen t illness Narrative Patient was transferred from [facility] to [facility] for CABG evaluation in the setting of severe multivessel coronary disease. CCU team came to bedside for evaluation. Patient appeared in nonacute distress, denies any active complaint at this time. Denies chest pain, shortness of breath, heart palpitation, lightheadedness. Patient had a good understanding of his current condition of multivessel coronary artery disease and the reason he was transferred to [facility] for CABG evaluation. He did endorse feeling anxious about that. Patient has history of CKD stage IIIb, hypothyroidism, type 2 diabetes last A1c 5.8 in 2022. Had smoking hx of 7pkyr. No alcohol or drug use. His hemodynamic status was significant for blood pressure of 180s/90s, heart rate of 50s to 60s. He maintained good SpO2 on room air. Patient was alert and oriented x 3. Physical exam was unremarkable except for mild neuropathic pain on bilateral lower extremity and +1 peripheral edema on left foot. Plan was to continue heparin drip, to start nitro drip to help with blood pressure control with goal SBP 120-140, and have cardiothoracic surgery team consulted for evaluation of CABG in the morning. CCU team will continue to monitor closely his labs, EKGs, telemetry. Dr. Arriaga informed me of the patient's cath results and I reviewed and agree. He has severe three vessel CAD. He is not having chest pain now but had an NSTEMI on arrival. Will plan to transfer to [facility]U at [facility] and get evaluation for CABG vs high risk PCI. Dr. Arriaga discussed with patient and Dr. Bolaños who is the attending at the [facility]. documented in this encounter [facility] 01-18-2024 Nurse Note 1645: bleeding at right radial heart cath site. No active bleeding present. Injected 2 ml air back into radial compression device. Will re assess in 15 minutes [facility] 01-18-2024 Nurse Note 1645: bleeding at right radial heart cath site. No active bleeding present. Injected 2 ml air back into radial compression device. Will re assess in 15 minutes documented in this encounter [facility] 01-18-2024 Note Formatting of this n ote might be different from the original. [employer] following case for Discharge Needs. [facility] 01-18-2024 Note Formatting of this n ote might be different from the original. [employer] following case for Discharge Needs. [facility] 01-18-2024 Miscellaneous Notes [employer] following case for Discharge Needs. Sedation Plan ASA class 2 - patient with mild systemic disease Mallampati class: II - soft palate, uvula, fauces visible. Sedation plan: local anesthesia and moderate (conscious sedation) Risks, benefits, and alternatives discussed with patient. Plan discussed with attending. Immediate reassessment prior to sedation: Patient's status reviewed and vital signs assessed; acceptable to perform procedure and proceed to administer sedation as planned. Care Managment Initial Assessment Date: 01/18/2024 Patient Name: Jorge Salamanca : 1945 Patient Information Source of Information: Patient Name/Contact Information: NANCY MCKEON [phone] BROTHER IN LAW Cognition/Language: WFL - Within Functional Limits Permission given to speak with patient life assurance representative/caregiver as indicated: Yes Confirmation of Payer with patient/family: Yes Payer [facility]: [facility] [place]: Yes Confirmation of Primary Care Physician: Confirmed PCP Name: DR. NICOLAS Seen in last 2 years?: Yes Primary Caregiver: Self If assistance needed, confirmed caregiver ready, willing and able to care for patient at discharge: Yes Confirmed with: PER PATIENT HIS SISTER OR BROTHER IN LAW Living Arrangements Current Residence: House Number of Floors 2 Number of Entry Steps: (RAMP) Bed/Bath Levels: Both second floor Facility: Facility Name: [facility] Plan to Return: Yes Lives with: Alone Support Systems: Family members Activities of Daily Living Ambulation: Independent Bathing/Dressing: Independent Elimination/Continence/Toileting : Independent Feeding: Independent Who Assists with Activities of Daily Living: NA Instrumental Activities of Daily Living Prescription Coverage: Yes [facility] Medication Management: Independent Transportation/Shopping: Independent Transportation Mode: Car Needs Assistance with Transportation at Discharge: No (CAR IN ER PARKING LOT) Meal Preparation: Independent Laundry/Cleaning: Independent Finances/Bill Paying: Independent Communication: Independent Types of Care Services/Equipment Utilized Care Services: Dialysis Type: NA Durable Medical Equipment: Walker, Shower Seat, Rollator, Hospital Bed, Raised Toilet Seat (4 WHEELED SCOOTER. HAS EQUIPMENT AVAILABLE BUT NOT USING IT) Patient's Goal/Discharge Plan Patient expects to be discharged to: HOME Discharge Planning Actions: Continue to follow Patient's Choice Rights and [employer] and Collaborative Relationships Disclosed as Indicated for Post-Acute Care: NA Interdisciplinary Team Engagement: Social Work Referral for: Additional Information: Inpatient status from home with nstemi. Admitted to tel, serial trop, heparin drip, cardiology consult. Plan for [facility] this afternoon. Met with patient. Introduced myself and explained my role. Patient lives at home alone. States his is currently at [facility] after having a fall at the [facility]. She is at [facility]. She has history of diabetic seizure and suffers from cognitive impairment. States his brother in law Koo is his emergency contact. He has sister in [facility] that is a RN and his MARINA lives in [place]. They are able to assist at home if needed. States his car in ER parking and he plans to drive himself home at discharge. Will need to monitor medication needs upon discharge. . Oralia Hui RN Problem: Pain - Adult Goal: Verbalizes/displays adequate comfort level or baseline comfort level Outcome: Progressing Flowsheets (Taken 01/18/2024 0805) Verbalizes/displays adequate comfort level or baseline comfort level: Encourage patient to monitor pain and request assistance Assess pain using appropriate pain scale Administer analgesics based on type and severity of pain and evaluate response Implement non-pharmacological measures as appropriate and evaluate response Problem: Safety - Adult Goal: Free from fall injury Outcome: Progressing Note: Side rails upx2, bed low, brakes on, call light in reach. The patient is Moderately Stable - Low risk of patient condition declining or worsening The patient's goals for the shift include Find out plan from doctor The clinical goals for the shift include Pt will remain comfortable without chest pain this shift. The patient is Moderately Stable - Low risk of patient condition declining or worsening The patient's goals for the shift include rest The clinical goals for the shift include orient to unit Problem: Pain - Adult Goal: Verbalizes/displays adequate comfort level or baseline comfort level Outcome: Progressing Problem: Safety - Adult Goal: Free from fall injury Outcome: Progressing documented in this encounter [facility] 01-18-2024 Note Formatting of this n ote might be different from the original. Sedation Plan ASA class 2 - patient with mild systemic disease Mallampati class: II - soft palate, uvula, fauces visible. Sedation plan: local anesthesia and moderate (conscious sedation) Risks, benefits, and alternatives discussed with patient. Plan discussed with attending. Immediate reassessment prior to sedation: Patient's status reviewed and vital signs assessed; acceptable to perform procedure and proceed to administer sedation as planned. [facility] 01-18-2024 Note Formatting of this n ote might be different from the original. Sedation Plan ASA class 2 - patient with mild systemic disease Mallampati class: II - soft palate, uvula, fauces visible. Sedation plan: local anesthesia and moderate (conscious sedation) Risks, benefits, and alternatives discussed with patient. Plan discussed with attending. Immediate reassessment prior to sedation: Patient's status reviewed and vital signs assessed; acceptable to perform procedure and proceed to administer sedation as planned. [facility] 01-18-2024 Note Formatting of this n ote might be different from the original. Care Managment Initial Assessment Date: 01/18/2024 Patient Name: Jorge Salamanca : 1945 Patient Information Source of Information: Patient Name/Contact Information: NANCY MCKEON [phone] BROTHER IN LAW Cognition/Language: WFL - Within Functional Limits Permission given to speak with patient life assurance representative/caregiver as indicated: Yes Confirmation of Payer with patient/family: Yes [facility] : Yes Confirmation of Primary Care Physician: Confirmed PCP Name: DR. NICOLAS Seen in last 2 years?: Yes Primary Caregiver: Self If assistance needed, confirmed caregiver ready, willing and able to care for patient at discharge: Yes Confirmed with: PER PATIENT HIS SISTER OR BROTHER IN LAW Living Arrangements Current Residence: House Number of Floors 2 Number of Entry Steps: (RAMP) Bed/Bath Levels: Both second floor Facility: Facility Name: NA Plan to Return: Yes Lives with: Alone Support Systems: Family members Activities of Daily Living Ambulation: Independent Bathing/Dressing: Independent Elimination/Continence/Toileting : Independent Feeding: Independent Who Assists with Activities of Daily Living: NA Instrumental Activities of Daily Living Prescription Coverage: Yes [facility] Medication Management: Independent Transportation/Shopping: Independent Transportation Mode: Car Needs Assistance with Transportation at Discharge: No (CAR IN ER PARKING LOT) Meal Preparation: Independent Laundry/Cleaning: Independent Finances/Bill Paying: Independent Communication: Independent Types of Care Services/Equipment Utilized Care Services: Dialysis Type: NA Durable Medical Equipment: Walker, Shower Seat, Rollator, Hospital Bed, Raised Toilet Seat (4 WHEELED SCOOTER. HAS EQUIPMENT AVAILABLE BUT NOT USING IT) Patient's Goal/Discharge Plan Patient expects to be discharged to: HOME Discharge Planning Actions: Continue to follow Patient's Choice Rights and [employer] and Collaborative Relationships Disclosed as Indicated for Post-Acute Care: NA Interdisciplinary Team Engagement: Social Work Referral for: Additional Information: Inpatient status from home with nstemi. Admitted to [facility], serial trop, heparin drip, cardiology consult. Plan for [facility] this afternoon. Met with patient. Introduced myself and explained my role. Patient lives at home alone. States his is currently at [facility]. She is at [facility]. She has history of diabetic seizure and suffers from cognitive impairment. States his brother in law Koo is his emergency contact. He has sister in [facility] that is a RN and his MARINA lives in [place]. They are able to assist at home if needed. States his car in ER parking and he plans to drive himself home at discharge. Will need to monitor medication needs upon discharge. . Oralia Hui RN [facility] 01-18-2024 Note Formatting of this n ote might be different from the original. Care Managment Initial Assessment Date: 01/18/2024 Patient Name: Jorge Salamanca : 1945 Patient Information Source of Information: Patient Name/Contact Information: NANCY MCKEON [phone] BROTHER IN LAW Cognition/Language: WFL - Within Functional Limits Permission given to speak with patient life assurance representative/caregiver as indicated: Yes Confirmation of Payer with patient/family: Yes [facility] : Yes Confirmation of Primary Care Physician: Confirmed PCP Name: DR. NICOLAS Seen in last 2 years?: Yes Primary Caregiver: Self If assistance needed, confirmed caregiver ready, willing and able to care for patient at discharge: Yes Confirmed with: PER PATIENT HIS SISTER OR BROTHER IN LAW Living Arrangements Current Residence: House Number of Floors 2 Number of Entry Steps: (RAMP) Bed/Bath Levels: Both second floor Facility: Facility Name: NA Plan to Return: Yes Lives with: Alone Support Systems: Family members Activities of Daily Living Ambulation: Independent Bathing/Dressing: Independent Elimination/Continence/Toileting : Independent Feeding: Independent Who Assists with Activities of Daily Living: NA Instrumental Activities of Daily Living Prescription Coverage: Yes [facility] Medication Management: Independent Transportation/Shopping: Independent Transportation Mode: Car Needs Assistance with Transportation at Discharge: No (CAR IN ER PARKING LOT) Meal Preparation: Independent Laundry/Cleaning: Independent Finances/Bill Paying: Independent Communication: Independent Types of Care Services/Equipment Utilized Care Services: Dialysis Type: NA Durable Medical Equipment: Walker, Shower Seat, Rollator, Hospital Bed, Raised Toilet Seat (4 WHEELED SCOOTER. HAS EQUIPMENT AVAILABLE BUT NOT USING IT) Patient's Goal/Discharge Plan Patient expects to be discharged to: HOME Discharge Planning Actions: Continue to follow Patient's Choice Rights and [employer] and Collaborative Relationships Disclosed as Indicated for Post-Acute Care: NA Interdisciplinary Team Engagement: Social Work Referral for: Additional Information: Inpatient status from home with nstemi. Admitted to tel, serial trop, heparin drip, cardiology consult. Plan for [facility] this afternoon. Met with patient. Introduced myself and explained my role. Patient lives at home alone. States his is currently at [facility] after [facility] a fall [facility] the [facility]. She is at [facility]. She has history of diabetic seizure and suffers from cognitive impairment. States his brother in law Koo is his emergency contact. He has sister in [place] that is a RN and his MARINA lives in [place]. They are able to assist at home if needed. States his car in ER parking and he plans to drive himself home at discharge. Will need to monitor medication needs upon discharge. . Oralia Hui RN [facility] 01-18-2024 Plan of care note Problem: Pain - Adult Goal: Verbalizes/displays adequate comfort level or baseline comfort level Outcome: Progressing Flowsheets (Taken 01/18/2024 08) Verbalizes/displays adequate comfort level or baseline comfort level: Encourage patient to monitor pain and request assistance Assess pain using appropriate pain scale Administer analgesics based on type and severity of pain and evaluate response Implement non-pharmacological measures as appropriate and evaluate response Problem: Safety - Adult Goal: Free from fall injury Outcome: Progressing Note: Side rails upx2, bed low, brakes on, call light in reach. The patient is Moderately Stable - Low risk of patient condition declining or worsening The patient's goals for the shift include Find out plan from doctor The clinical goals for the shift include Pt will remain comfortable without chest pain this shift. [facility] 01-18-2024 Consult note Associated Order (s): IP CONSULT TO CARDIOLOGY [facility] [place] [facility] [place]Electrophysiology Consult Note Reason for Consult/Chief Complaint: NSTEMI Consulting provider: Martha Zuniga nursing specialist: None History of Present Illness: Jorge Salamanca is a 78 y.o. male with a history of HTN, HLD, type 2 DM, CKD stage 3B who presents now for evaluation of chest pain and dyspnea and noted to have elevation of troponins. He says he noticed dyspnea with exertion 2 days ago while walking to [facility] to visit his who is an inpatient there. He then had chest pain while in bed that night which was relieved with TUMS. The next day he was more tired and when he went to bed, he again had chest pain radiating into his back and arms. This was a pressure sensation, no diaphoresis, N/V, syncope. His symptoms did not resolve with TUMS so he came to the ER. His Tn is up to 2 and he is now pain free. His echo looks normal. Renal function at baseline. Assessment/Plan NSTEMI: This is likely a type 1 event, ACS. He is now pain free and no significant WMA on echo. Given rest symptoms and high risk features ( elevated Cr, hx DM) favor LHC and revascularization. I discussed with patient and he agrees to proceed. LHC and revasc Keep NPO, hold heparin gtt ad operations coordinator to cath Continue ASA, statin and metoprolol Hydrate precath and minimize dye CKD stage 3B: His CR is at baseline. He is on no nephrotoxic meds but will get some IVP dye with cath. Will hydrate and try to give as little dye as possible. Medications: aspirin, 81 mg, Oral, Daily atorvastatin, 80 mg, Oral, Daily metoprolol tartrate, 25 mg, Oral, BID Infusion Medications: heparin, 5-30 Units/kg/hr, Last Rate: 13 Units/kg/hr (01/18/24 0644) Physical Examination: Vitals: 01/18/24 0249 01/18/24 0614 01/18/24 0750 01/18/24 0911 BP: 145/70 136/73 BP Location: Right arm Patient Position: Lying Pulse: 59 59 Resp: 18 18 Temp: 36.7 C (98.1 F) 36.2 C (97.2 F) TempSrc: Temporal Temporal SpO2: 97% 96% Weight: 180 lb (81.6 kg) 180 lb (81.6 kg) Height: 5' 6 (1.676 m) 5' 6 (1.676 m) Intake/Output Summary (Last 24 hours) at 01/18/2024 0932 Last data filed at 01/18/2024 0754 Gross per 24 hour Intake -- Output 450 ml Net -450 ml Wt Readings from Last 3 Encounters: 01/18/24 180 lb (81.6 kg) Physical Exam Constitutional: No distress. well nourished. well hydrated Psychiatric: A &O x 3. Medical insight good NMT: Oral mucosa is pink and moist Neck: no JVD. Respiratory: Lungs are clear Cardiac exam: Rhythm: RRR ; Normal S1 and S2 Murmur: no Other: No rub; S4 gallop Vasc: Peripheral pulses 2+ and equal Abdomen: BS+, soft, NT Extremities: no LE edema Skin: Warm to touch and well perfused Laboratory Tests: Recent Labs 01/17/24235101/18/24 0613 NA 141 139 K 3.8 4.2 CL 108* 108* CO2 BUN 18 20 CREATININE 2.02* 2.03* EGFR 33.5* 33.4* Recent Labs 01/17/24235101/18/24 0324 01/18/24 0613 TROPONINI 0.193* 1.022* 2.165* Recent Labs 01/17/24235101/18/24 0613 WBC 6.4 7.8 HGB 14.5 13.1 HCT 43.8 39.5* MCV 86.1 85.7 PLT 152 136* Lab Results Component Value Date CHOL 180 01/18/2024 Lab Results Component Value Date HDL 33 (L) 01/18/2024 Lab Results Component Value Date LDLCALC 127 (H) 01/18/2024 Lab Results Component Value Date TRIG 100 01/18/2024 Recent Labs 01/17/242351 BNP 1,340* No results for input(s): INR in the last 72 hours. Results from last 7 days Lab Units 01/18/24 0613 AST U/L 31 ALT U/L 12 Radiology: CXR: personally reviewed: Normal cardiac silhouette, miliary pattern diffusely Cardiac Tests Personally Reviewed: ECG 12-LEAD 01/18/2024 6:16 AM (Final) Impression > I agree with below Sinus rhythm Atrial premature complexes Abnormal R-wave progression, early transition Repol abnrm suggests ischemia, lateral leads Electronically Signed On 01-18-2024 06:16:41 EDT by Jose Robledo Telemetry findings: NSR Reports reviewed: Last Echo 01/17/24 TRANSTHORACIC ECHOCARDIOGRAM (TTE) COMPLETE (CONTRAST/BUBBLE/3D PRN) 01/18/2024 9:23 AM (Final) Interpretation Summary Left Ventricle: Left ventricle size is normal. Mildly increased wall thickness. Normal left ventricular systolic function. EF by 2D Simpsons Biplane is 74%. Normal wall motion. Diastolic dysfunction present with normal LVEF. Right Ventricle: Right ventricle size is normal. Normal systolic function. Aortic Valve: Mild (1+) regurgitation. Left Atrium: Left atrium is mildly dilated. Pulmonary Arteries: Pulmonary artery was not well visualized. Mild pulmonary hypertension present. No comparison record. Signed by: Rafita Fernandez MD on 01/18/2024 9:23 AM Last Cath No results found for this or any previous visit. Last Stress Test No results found for this or any previous visit. Last EP study No results found for this or any previous visit. MELINA SCORE: 125 ( 9% six month risk) Gustavo Azar MD DATE of SERVICE: 01/18/2024 [facility] 01-18-2024 Consult note Associated Order (s): IP CONSULT TO CARDIOLOGY [facility] [place] [facility] [place] /Electrophysiology Consult Note Reason for Consult/Chief Complaint: NSTEMI Consulting provider: Martha Established nursing specialist: None History of Present Illness: Jorge Salamanca is a 78 y.o. male with a history of HTN, HLD, type 2 DM, CKD stage 3B who presents now for evaluation of chest pain and dyspnea and noted to have elevation of troponins. He says he noticed dyspnea with exertion 2 days ago while walking to [facility] to visit his who is an inpatient there. He then had chest pain while in bed that night which was relieved with TUMS. The next day he was more tired and when he went to bed, he again had chest pain radiating into his back and arms. This was a pressure sensation, no diaphoresis, N/V, syncope. His symptoms did not resolve with TUMS so he came to the ER. His Tn is up to 2 and he is now pain free. His echo looks normal. Renal function at baseline. Assessment/Plan NSTEMI: This is likely a type 1 event, ACS. He is now pain free and no significant WMA on echo. Given rest symptoms and high risk features ( elevated Cr, hx DM) favor LHC and revascularization. I discussed with patient and he agrees to proceed. LHC and revasc Keep NPO, hold heparin gtt ad operations coordinator to cath Continue ASA, statin and metoprolol Hydrate precath and minimize dye CKD stage 3B: His CR is at baseline. He is on no nephrotoxic meds but will get some IVP dye with cath. Will hydrate and try to give as little dye as possible. Medications: aspirin, 81 mg, Oral, Daily atorvastatin, 80 mg, Oral, Daily metoprolol tartrate, 25 mg, Oral, BID Infusion Medications: heparin, 5-30 Units/kg/hr, Last Rate: 13 Units/kg/hr (01/18/24 0644) Physical Examination: Vitals: 01/18/24 0249 01/18/24 0614 01/18/24 0750 01/18/24 0911 BP: 145/70 136/73 BP Location: Right arm Patient Position: Lying Pulse: 59 59 Resp: 18 18 Temp: 36.7 C (98.1 F) 36.2 C (97.2 F) TempSrc: Temporal Temporal SpO2: 97% 96% Weight: 180 lb (81.6 kg) 180 lb (81.6 kg) Height: 5' 6 (1.676 m) 5' 6 (1.676 m) Intake/Output Summary (Last 24 hours) at 01/18/2024 0932 Last data filed at 01/18/2024 0754 Gross per 24 hour Intake -- Output 450 ml Net -450 ml Wt Readings from Last 3 Encounters: 01/18/24 180 lb (81.6 kg) Physical Exam Constitutional: No distress. well nourished. well hydrated Psychiatric: A &O x 3. Medical insight good NMT: Oral mucosa is pink and moist Neck: no JVD. Respiratory: Lungs are clear Cardiac exam: Rhythm: RRR ; Normal S1 and S2 Murmur: no Other: No rub; S4 gallop Vasc: Peripheral pulses 2+ and equal Abdomen: BS+, soft, NT Extremities: no LE edema Skin: Warm to touch and well perfused Laboratory Tests: Recent Labs 01/17/24 2352 01/18/24 0613 NA 141 139 K 3.8 4.2 CL 108* 108* CO2 BUN 18 20 CREATININE 2.02* 2.03* EGFR 33.5* 33.4* Recent Labs 01/17/24 2352 01/18/24 0324 01/18/24 0613 TROPONINI 0.193* 1.022* 2.165* Recent Labs 01/17/24 2352 01/18/24 0613 WBC 6.4 7.8 HGB 14.5 13.1 HCT 43.8 39.5* MCV 86.1 85.7 PLT 152 136* Lab Results Component Value Date CHOL 180 01/18/2024 Lab Results Component Value Date HDL 33 (L) 01/18/2024 Lab Results Component Value Date LDLCALC 127 (H) 01/18/2024 Lab Results Component Value Date TRIG 100 01/18/2024 Recent Labs 01/17/242351 BNP 1,340* No results for input(s): INR in the last 72 hours. Results from last 7 days Lab Units 01/18/24 0613 AST U/L 31 ALT U/L 12 Radiology: CXR: personally reviewed: Normal cardiac silhouette, miliary pattern diffusely Cardiac Tests Personally Reviewed: ECG 12-LEAD 01/18/2024 6:16 AM (Final) Impression > I agree with below Sinus rhythm Atrial premature complexes Abnormal R-wave progression, early transition Repol abnrm suggests ischemia, lateral leads Electronically Signed On 01-18-2024 06:16:41 EDT by Jose Robledo Telemetry findings: NSR Reports reviewed: Last Echo 01/17/24 TRANSTHORACIC ECHOCARDIOGRAM (TTE) COMPLETE (CONTRAST/BUBBLE/3D PRN) 01/18/2024 9:23 AM (Final) Interpretation Summary Left Ventricle: Left ventricle size is normal. Mildly increased wall thickness. Normal left ventricular systolic function. EF by 2D Simpsons Biplane is 74%. Normal wall motion. Diastolic dysfunction present with normal LVEF. Right Ventricle: Right ventricle size is normal. Normal systolic function. Aortic Valve: Mild (1+) regurgitation. Left Atrium: Left atrium is mildly dilated. Pulmonary Arteries: Pulmonary artery was not well visualized. Mild pulmonary hypertension present. No comparison record. Signed by: Rafita Fernandez MD on 01/18/2024 9:23 AM Last Cath No results found for this or any previous visit. Last Stress Test No results found for this or any previous visit. Last EP study No results found for this or any previous visit. MELINA SCORE: 125 ( 9% six month risk) Gustavo Azar MD DATE of SERVICE: 01/18/2024 documented in this encounter [facility] 01-18-2024 Note Sinus rhythm Atrial premature complexes Abnormal R-wave progression, early transition Repol abnrm suggests ischemia, lateral leads Electronically Signed On 01-18-2024 06:16:41 EDT by [facility] 01-18-2024 Note Sinus rhythm Atrial premature complexes Abnormal R-wave progression, early transition Repol abnrm suggests ischemia, lateral leads Electronically Signed On 01-18-2024 06:16:41 EDT by [facility] 01-18-2024 Note IMPRESSION: Sinus rhythm Atrial premature complexes Abnormal R-wave progression, early transition Repol abnrm suggests ischemia, lateral leads Electronically Signed On 01-18-2024 06:16:41 EDT by [facility] 01-18-2024 Plan of care note The patient is Moderately Stable - Low risk of patient condition declining or worsening The patient's goals for the shift include rest The clinical goals for the shift include orient to unit Problem: Pain - Adult Goal: Verbalizes/displays adequate comfort level or baseline comfort level Outcome: Progressing Problem: Safety - Adult Goal: Free from fall injury Outcome: Progressing [facility] 01-18-2024 History and physical note Attending History and Physical Admit Date: 01/17/2024 PCP: ERIC NICOLAS DO CHIEF COMPLAINT: Chest pain Reason for Admission: NSTEMI History Obtained From: patient HISTORY OF PRESENT ILLNESS: Patient is a 78-year-old gentleman with no prior history of coronary artery disease who presented to the emergency room with complaint of acute onset of chest pain and shortness of breath. Patient did not have similar symptoms in the past. Patient was evaluated in the emergency room and was found to have slightly inverted T waves on EKG. Initial troponin was 0.19. Based on clinical presentation and lab data patient is suspected to have acute non-ST elevation GA and is being admitted for further workup and management. 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) Hyperlipemia Hypertension Past Surgical History: Past Surgical History: Procedure Laterality Date TONSILLECTOMY (HISTORICAL) Social History: Social History Socioeconomic History Marital status: Spouse name: Not on file Number of children: Not on file Years of education: Not on file Highest education level: Not on file Occupational History Not on file Tobacco Use Smoking status: Not on file Smokeless tobacco: Never Tobacco comments: Quit smoking: smokes 3.5 packs daily Substance and Sexual Activity Alcohol use: Not Currently Drug use: Never Sexual activity: Not on file Other Topics Concern Not on file Social History Narrative Not on file Social Determinants of Health Financial Resource Strain: Not on file Food Insecurity: Not on file Transportation Needs: Not on file Physical Activity: Not on file Stress: Not on file Social Connections: Not on file Intimate Partner Violence: Not on file Housing Stability: Not on file Family History: Family History Problem Relation Name Age of Onset No Known Problems Brother No Known Problems Brother Bipolar disorder Sister Arthritis Sister Lung cancer Father Alzheimer's disease Mother Cancer Father Medications Prior to Admission: No current facility-administered medications on file prior to encounter. No current outpatient medications on file prior to encounter. Allergies: Allergies Allergen Reactions Bee Venom REVIEW OF SYSTEMS: Constitutional: Negative for fever, chills, activity change and unexpected weight change. HEENT: Negative for congestion, postnasal drip and sneezing. Eyes: Negative for itching and visual disturbance. Respiratory: Negative for apnea, cough, choking, chest tightness, shortness of breath, wheezing and stridor. Cardiovascular: Positive for chest pain and shortness of breath Gastrointestinal: Negative for nausea, vomiting, abdominal pain, diarrhea and blood in stool. Genitourinary: Negative for dysuria, frequency and flank pain. Musculoskeletal: Negative for myalgias and joint swelling. Skin: Negative for rash. Neurological: Negative for dizziness, tremors, seizures, syncope, facial asymmetry, speech difficulty, weakness, numbness and headaches. Hematological: Negative for adenopathy. Psychiatric/Behavioral: Negative for suicidal ideas, behavioral problems, self-injury and dysphoric mood. Vitals: BP (!) 163/68 Pulse 76 Temp 36.4 C (97.6 F) (Oral) Resp 23 Ht 5' 6 (1.676 m) Wt 180 lb (81.6 kg) SpO2 98% BMI 29.05 kg/m BMI Classification: Overweight (BMI 25.0-29.9) Pulse Ox: SpO2 Av % Min: 97 % Max: 99 % Supplemental O2: PHYSICAL EXAM: Constitutional: General: Patient is not in acute distress. Appearance: Normal appearance. HENT: Head: Normocephalic and atraumatic. Right Ear: External ear normal. Left Ear: External ear normal. Mouth/Throat: Mouth: Mucous membranes are moist. Pharynx: Oropharynx is clear. Eyes: Extraocular Movements: Extraocular movements intact. Conjunctiva/sclera: Conjunctivae normal. Pupils: Pupils are equal, round, and reactive to light. Cardiovascular: Comments: Regular rate and rhythm, normal S1-S2, no murmurs noted. Radial pulses 2+ and symmetric. Pulmonary: Effort: Pulmonary effort is normal. No respiratory distress. Breath sounds: Normal breath sounds. No stridor. No wheezing or rhonchi. Abdominal: Comments: The abdomen is soft, nondistended and nontender. There is no rebound tenderness or guarding. Bowel sounds are normal. Skin: General: Skin is warm and dry. Capillary Refill: Capillary refill takes less than 2 seconds. Coloration: Skin is not jaundiced or pale. Findings: No bruising or erythema. Neurological: General: No focal deficit present. Mental Status: Patient is alert and oriented to person, place, and time. Mental status is at baseline. Cranial Nerves: No cranial nerve deficit. Sensory: No sensory deficit. Motor: No weakness. Coordination: Coordination normal. Psychiatric: Mood and Affect: Mood normal. Musculoskeletal: NO edema DATA: CBC: Recent Labs 01/17/24 2352 WBC 6.4 RBC 5.09 HGB 14.5 HCT 43.8 MCV 86.1 RDW 13.6 PLT 152 BMP: Recent Labs 01/17/24 2352 NA 141 K 3.8 CL 108* CO2 23 BUN 18 CREATININE 2.02* GLUCOSE 256* CALCIUM 8.6 ANIONGAP 9 LIVER PROFILE: No results for input(s): AST, ALT, BILITOT, ALKPHOS, PROT in the last 72 hours. No lab exists for component: LABALBU PT/INR: No results for input(s): PROTIME, INR in the last 72 hours. CARDIAC ENZYMES: Recent Labs 01/17/24 2352 TROPONINI 0.193* Procalcitonin: No results found for: PROCAL Urine Culture: No results found for this or any previous visit. COVID-19 PCR: No results for input(s): COVID19 in the last 72 hours. I reviewed: [x] laboratory results [x] radiographic results At the time of today's encounter. Pt was advised of the results. Data: (CAT1) Clinical information was necessarily obtained from an independent historian. (LOW: 2x CAT1 or independent historian MOD: 3x CAT1 or 1x CAT3 EXTENSIVE: 3x CAT1 and 1x CAT3) Assessment Discussed management with the ED provider and agree with hospitalization. Acute, acute on chronic, unstable/uncontrolled chronic problems/diagnoses: Acute non-ST elevation GA Chest pain Shortness of breath Stable chronic problems affecting care, new non-acute diagnoses: History of hypertension History of hyperlipidemia Plan As a result of the above findings & factors, the following mgmt was pursued: --Admit the patient to the telemetry floor -Trend troponin -Start the patient on weight-based heparin due to history of CAD and active chest pain -Check fasting lipid panel in the morning -Tylenol for mild pain and fever, morphine for severe pain -Consult cardiology Nitroglycerin as needed 2D echocardiogram N.p.o. past midnight - am labs, replace lytes prn - PT/OT/CM/SW - delirium precautions: increase activity and limit nighttime disturbances - DVT prophylaxis: heparin and encourage ambulation Complexity: Acute illness or injury posing a threat to life or body function (HIGH). Risk: Admission to hospital-level care was considered or occurred (HIGH). Advance Directive: No Order Anticipated Discharge - Date - 01/19/24 - Location - Home - Pending the following -cardiac workup Total time spent (which include face to face and non face to face encounters) : 45 minutes. Toxic drug monitoring/narrow therapeutic index drug monitoring : # Drug name : Heparin # Route administered : Intravenous # Method of monitoring : CBC Extended Emergency Contact Information Primary Emergency Contact: Heydi Salamanca Relation: Spouse [employer] Jorge Salamanca : 1945 Primary Care Physician: ERIC NICOLAS DO The patient and/or family/surrogate voluntarily agreed to participate in ACP services. Patient s cognitive capacity: AOx3 Code Status: [x_] [FULL CODE - Continue all advanced life support: CPR,intubation,invasive procedures] [_] [DNR-CCA - DO NOT do CPR, intubation] [_] [DNR-WHITE SIDEWALL TIRE BUFFER - Comfort care only] [_] DNR form [was/was not] signed Summary of discussion: The patient health care POA/ surrogate is the following: Patient. [Condition that instigated the ACP on this DOS, relevant PMH, functional status, goals of care, and whom this was discussed with including names and relationship to the patient, and any relevant advance care documentation discussion] I answered all the patient/family questions that I could within the range and scope of the current medical situation. We discussed the medical conditions, risks, benefits, outcomes, and goals of care at this time for the patient's medical issues at hand in the face of the patient's chronic issues and current presentation. Total time spent: 6 minutes were spent discussing the patient's resuscitation status, advance care planning, and end of life care, with patient and/or family/surrogate. Michael Urena MD Division of Hospitalist Medicine [facility] Work Phone: 01-18-2024 Note [facility] 01-18-2024 History and physical note Attending History and Physical Admit Date: 01/17/2024 PCP: ERIC NICOLAS DO CHIEF COMPLAINT: Chest pain Reason for Admission: NSTEMI History Obtained From: patient HISTORY OF PRESENT ILLNESS: Patient is a 78-year-old gentleman with no prior history of coronary artery disease who presented to the emergency room with complaint of acute onset of chest pain and shortness of breath. Patient did not have similar symptoms in the past. Patient was evaluated in the emergency room and was found to have slightly inverted T waves on EKG. Initial troponin was 0.19. Based on clinical presentation and lab data patient is suspected to have acute non-ST elevation GA and is being admitted for further workup and management. 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) Hyperlipemia Hypertension Past Surgical History: Past Surgical History: Procedure Laterality Date TONSILLECTOMY (HISTORICAL) Social History: Social History Socioeconomic History Marital status: Spouse name: Not on file Number of children: Not on file Years of education: Not on file Highest education level: Not on file Occupational History Not on file Tobacco Use Smoking status: Not on file Smokeless tobacco: Never Tobacco comments: Quit smoking: smokes 3.5 packs daily Substance and Sexual Activity Alcohol use: Not Currently Drug use: Never Sexual activity: Not on file Other Topics Concern Not on file Social History Narrative Not on file Social Determinants of Health Financial Resource Strain: Not on file Food Insecurity: Not on file Transportation Needs: Not on file Physical Activity: Not on file Stress: Not on file Social Connections: Not on file Intimate Partner Violence: Not on file Housing Stability: Not on file Family History: Family History Problem Relation Name Age of Onset No Known Problems Brother No Known Problems Brother Bipolar disorder Sister Arthritis Sister Lung cancer Father Alzheimer's disease Mother Cancer Father Medications Prior to Admission: No current facility-administered medications on file prior to encounter. No current outpatient medications on file prior to encounter. Allergies: Allergies Allergen Reactions Bee Venom REVIEW OF SYSTEMS: Constitutional: Negative for fever, chills, activity change and unexpected weight change. HEENT: Negative for congestion, postnasal drip and sneezing. Eyes: Negative for itching and visual disturbance. Respiratory: Negative for apnea, cough, choking, chest tightness, shortness of breath, wheezing and stridor. Cardiovascular: Positive for chest pain and shortness of breath Gastrointestinal: Negative for nausea, vomiting, abdominal pain, diarrhea and blood in stool. Genitourinary: Negative for dysuria, frequency and flank pain. Musculoskeletal: Negative for myalgias and joint swelling. Skin: Negative for rash. Neurological: Negative for dizziness, tremors, seizures, syncope, facial asymmetry, speech difficulty, weakness, numbness and headaches. Hematological: Negative for adenopathy. Psychiatric/Behavioral: Negative for suicidal ideas, behavioral problems, self-injury and dysphoric mood. Vitals: BP (!) 163/68 Pulse 76 Temp 36.4 C (97.6 F) (Oral) Resp 23 Ht 5' 6 (1.676 m) Wt 180 lb (81.6 kg) SpO2 98% BMI 29.05 kg/m BMI Classification: Overweight (BMI 25.0-29.9) Pulse Ox: SpO2 Av % Min: 97 % Max: 99 % Supplemental O2: PHYSICAL EXAM: Constitutional: General: Patient is not in acute distress. Appearance: Normal appearance. HENT: Head: Normocephalic and atraumatic. Right Ear: External ear normal. Left Ear: External ear normal. Mouth/Throat: Mouth: Mucous membranes are moist. Pharynx: Oropharynx is clear. Eyes: Extraocular Movements: Extraocular movements intact. Conjunctiva/sclera: Conjunctivae normal. Pupils: Pupils are equal, round, and reactive to light. Cardiovascular: Comments: Regular rate and rhythm, normal S1-S2, no murmurs noted. Radial pulses 2+ and symmetric. Pulmonary: Effort: Pulmonary effort is normal. No respiratory distress. Breath sounds: Normal breath sounds. No stridor. No wheezing or rhonchi. Abdominal: Comments: The abdomen is soft, nondistended and nontender. There is no rebound tenderness or guarding. Bowel sounds are normal. Skin: General: Skin is warm and dry. Capillary Refill: Capillary refill takes less than 2 seconds. Coloration: Skin is not jaundiced or pale. Findings: No bruising or erythema. Neurological: General: No focal deficit present. Mental Status: Patient is alert and oriented to person, place, and time. Mental status is at baseline. Cranial Nerves: No cranial nerve deficit. Sensory: No sensory deficit. Motor: No weakness. Coordination: Coordination normal. Psychiatric: Mood and Affect: Mood normal. Musculoskeletal: NO edema DATA: CBC: Recent Labs 01/17/24 2352 WBC 6.4 RBC 5.09 HGB 14.5 HCT 43.8 MCV 86.1 RDW 13.6 PLT 152 BMP: Recent Labs 01/17/24 2352 NA 141 K 3.8 CL 108* CO2 23 BUN 18 CREATININE 2.02* GLUCOSE 256* CALCIUM 8.6 ANIONGAP 9 LIVER PROFILE: No results for input(s): AST, ALT, BILITOT, ALKPHOS, PROT in the last 72 hours. No lab exists for component: LABALBU PT/INR: No results for input(s): PROTIME, INR in the last 72 hours. CARDIAC ENZYMES: Recent Labs 01/17/24 2352 TROPONINI 0.193* Procalcitonin: No results found for: PROCAL Urine Culture: No results found for this or any previous visit. COVID-19 PCR: No results for input(s): COVID19 in the last 72 hours. I reviewed: [x] laboratory results [x] radiographic results At the time of today's encounter. Pt was advised of the results. Data: (CAT1) Clinical information was necessarily obtained from an independent historian. (LOW: 2x CAT1 or independent historian MOD: 3x CAT1 or 1x CAT3 EXTENSIVE: 3x CAT1 and 1x CAT3) Assessment Discussed management with the ED provider and agree with hospitalization. Acute, acute on chronic, unstable/uncontrolled chronic problems/diagnoses: Acute non-ST elevation GA Chest pain Shortness of breath Stable chronic problems affecting care, new non-acute diagnoses: History of hypertension History of hyperlipidemia Plan As a result of the above findings & factors, the following mgmt was pursued: --Admit the patient to the telemetry floor -Trend troponin -Start the patient on weight-based heparin due to history of CAD and active chest pain -Check fasting lipid panel in the morning -Tylenol for mild pain and fever, morphine for severe pain -Consult cardiology Nitroglycerin as needed 2D echocardiogram N.p.o. past midnight - am labs, replace lytes prn - PT/OT/CM/SW - delirium precautions: increase activity and limit nighttime disturbances - DVT prophylaxis: heparin and encourage ambulation Complexity: Acute illness or injury posing a threat to life or body function (HIGH). Risk: Admission to hospital-level care was considered or occurred (HIGH). Advance Directive: No Order Anticipated Discharge - Date - 01/19/24 - Location - Home - Pending the following -cardiac workup Total time spent (which include face to face and non face to face encounters) : 45 minutes. Toxic drug monitoring/narrow therapeutic index drug monitoring : # Drug name : Heparin # Route administered : Intravenous # Method of monitoring : CBC Extended Emergency Contact Information Primary Emergency Contact: Heydi Salamanca Relation: Spouse [employer] Jorge Mix Stephan : 1945 Primary Care Physician: ERIC NICOLAS DO The patient and/or family/surrogate voluntarily agreed to participate in ACP services. Patient s cognitive capacity: AOx3 Code Status: [x_] [FULL CODE - Continue all advanced life support: CPR,intubation,invasive procedures] [_] [DNR-CCA - DO NOT do CPR, intubation] [_] [DNR-WHITE SIDEWALL TIRE BUFFER - Comfort care only] [_] DNR form [was/was not] signed Summary of discussion: The patient health care POA/ surrogate is the following: Patient. [Condition that instigated the ACP on this DOS, relevant PMH, functional status, goals of care, and whom this was discussed with including names and relationship to the patient, and any relevant advance care documentation discussion] I answered all the patient/family questions that I could within the range and scope of the current medical situation. We discussed the medical conditions, risks, benefits, outcomes, and goals of care at this time for the patient's medical issues at hand in the face of the patient's chronic issues and current presentation. Total time spent: 6 minutes were spent discussing the patient's resuscitation status, advance care planning, and end of life care, with patient and/or family/surrogate. Michael Urena MD Division of Hospitalist Medicine [facility] documented in this encounter [facility] 01-18-2024 History and physical note Attending History and Physical Admit Date: 01/17/2024 PCP: ERIC NICOLAS DO CHIEF COMPLAINT: Chest pain Reason for Admission: NSTEMI History Obtained From: patient HISTORY OF PRESENT ILLNESS: Patient is a 78-year-old gentleman with no prior history of coronary artery disease who presented to the emergency room with complaint of acute onset of chest pain and shortness of breath. Patient did not have similar symptoms in the past. Patient was evaluated in the emergency room and was found to have slightly inverted T waves on EKG. Initial troponin was 0.19. Based on clinical presentation and lab data patient is suspected to have acute non-ST elevation GA and is being admitted for further workup and management. 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) Hyperlipemia Hypertension Past Surgical History: Past Surgical History: Procedure Laterality Date TONSILLECTOMY (HISTORICAL) Social History: Social History Socioeconomic History Marital status: Spouse name: Not on file Number of children: Not on file Years of education: Not on file Highest education level: Not on file Occupational History Not on file Tobacco Use Smoking status: Not on file Smokeless tobacco: Never Tobacco comments: Quit smoking: smokes 3.5 packs daily Substance and Sexual Activity Alcohol use: Not Currently Drug use: Never Sexual activity: Not on file Other Topics Concern Not on file Social History Narrative Not on file Social Determinants of Health Financial Resource Strain: Not on file Food Insecurity: Not on file Transportation Needs: Not on file Physical Activity: Not on file Stress: Not on file Social Connections: Not on file Intimate Partner Violence: Not on file Housing Stability: Not on file Family History: Family History Problem Relation Name Age of Onset No Known Problems Brother No Known Problems Brother Bipolar disorder Sister Arthritis Sister Lung cancer Father Alzheimer's disease Mother Cancer Father Medications Prior to Admission: No current facility-administered medications on file prior to encounter. No current outpatient medications on file prior to encounter. Allergies: Allergies Allergen Reactions Bee Venom REVIEW OF SYSTEMS: Constitutional: Negative for fever, chills, activity change and unexpected weight change. HEENT: Negative for congestion, postnasal drip and sneezing. Eyes: Negative for itching and visual disturbance. Respiratory: Negative for apnea, cough, choking, chest tightness, shortness of breath, wheezing and stridor. Cardiovascular: Positive for chest pain and shortness of breath Gastrointestinal: Negative for nausea, vomiting, abdominal pain, diarrhea and blood in stool. Genitourinary: Negative for dysuria, frequency and flank pain. Musculoskeletal: Negative for myalgias and joint swelling. Skin: Negative for rash. Neurological: Negative for dizziness, tremors, seizures, syncope, facial asymmetry, speech difficulty, weakness, numbness and headaches. Hematological: Negative for adenopathy. Psychiatric/Behavioral: Negative for suicidal ideas, behavioral problems, self-injury and dysphoric mood. Vitals: BP (!) 163/68 Pulse 76 Temp 36.4 C (97.6 F) (Oral) Resp 23 Ht 5' 6 (1.676 m) Wt 180 lb (81.6 kg) SpO2 98% BMI 29.05 kg/m BMI Classification: Overweight (BMI 25.0-29.9) Pulse Ox: SpO2 Av % Min: 97 % Max: 99 % Supplemental O2: PHYSICAL EXAM: Constitutional: General: Patient is not in acute distress. Appearance: Normal appearance. HENT: Head: Normocephalic and atraumatic. Right Ear: External ear normal. Left Ear: External ear normal. Mouth/Throat: Mouth: Mucous membranes are moist. Pharynx: Oropharynx is clear. Eyes: Extraocular Movements: Extraocular movements intact. Conjunctiva/sclera: Conjunctivae normal. Pupils: Pupils are equal, round, and reactive to light. Cardiovascular: Comments: Regular rate and rhythm, normal S1-S2, no murmurs noted. Radial pulses 2+ and symmetric. Pulmonary: Effort: Pulmonary effort is normal. No respiratory distress. Breath sounds: Normal breath sounds. No stridor. No wheezing or rhonchi. Abdominal: Comments: The abdomen is soft, nondistended and nontender. There is no rebound tenderness or guarding. Bowel sounds are normal. Skin: General: Skin is warm and dry. Capillary Refill: Capillary refill takes less than 2 seconds. Coloration: Skin is not jaundiced or pale. Findings: No bruising or erythema. Neurological: General: No focal deficit present. Mental Status: Patient is alert and oriented to person, place, and time. Mental status is at baseline. Cranial Nerves: No cranial nerve deficit. Sensory: No sensory deficit. Motor: No weakness. Coordination: Coordination normal. Psychiatric: Mood and Affect: Mood normal. Musculoskeletal: NO edema DATA: CBC: Recent Labs 01/17/24 2352 WBC 6.4 RBC 5.09 HGB 14.5 HCT 43.8 MCV 86.1 RDW 13.6 PLT 152 BMP: Recent Labs 01/17/24 2352 NA 141 K 3.8 CL 108* CO2 23 BUN 18 CREATININE 2.02* GLUCOSE 256* CALCIUM 8.6 ANIONGAP 9 LIVER PROFILE: No results for input(s): AST, ALT, BILITOT, ALKPHOS, PROT in the last 72 hours. No lab exists for component: LABALBU PT/INR: No results for input(s): PROTIME, INR in the last 72 hours. CARDIAC ENZYMES: Recent Labs 01/17/24 2352 TROPONINI 0.193* Procalcitonin: No results found for: PROCAL Urine Culture: No results found for this or any previous visit. COVID-19 PCR: No results for input(s): COVID19 in the last 72 hours. I reviewed: [x] laboratory results [x] radiographic results At the time of today's encounter. Pt was advised of the results. Data: (CAT1) Clinical information was necessarily obtained from an independent historian. (LOW: 2x CAT1 or independent historian MOD: 3x CAT1 or 1x CAT3 EXTENSIVE: 3x CAT1 and 1x CAT3) Assessment Discussed management with the ED provider and agree with hospitalization. Acute, acute on chronic, unstable/uncontrolled chronic problems/diagnoses: Acute non-ST elevation GA Chest pain Shortness of breath Stable chronic problems affecting care, new non-acute diagnoses: History of hypertension History of hyperlipidemia Plan As a result of the above findings & factors, the following mgmt was pursued: --Admit the patient to the telemetry floor -Trend troponin -Start the patient on weight-based heparin due to history of CAD and active chest pain -Check fasting lipid panel in the morning -Tylenol for mild pain and fever, morphine for severe pain -Consult cardiology Nitroglycerin as needed 2D echocardiogram N.p.o. past midnight - am labs, replace lytes prn - PT/OT/CM/SW - delirium precautions: increase activity and limit nighttime disturbances - DVT prophylaxis: heparin and encourage ambulation Complexity: Acute illness or injury posing a threat to life or body function (HIGH). Risk: Admission to hospital-level care was considered or occurred (HIGH). Advance Directive: No Order Anticipated Discharge - Date - 01/19/24 - Location - Home - Pending the following -cardiac workup Total time spent (which include face to face and non face to face encounters) : 45 minutes. Toxic drug monitoring/narrow therapeutic index drug monitoring : # Drug name : Heparin # Route administered : Intravenous # Method of monitoring : CBC Extended Emergency Contact Information Primary Emergency Contact: Heydi Salamanca Relation: Spouse [employer] Jorge Mix Salamanca : 1945 Primary Care Physician: ERIC NICOLAS DO The patient and/or family/surrogate voluntarily agreed to participate in ACP services. Patient s cognitive capacity: AOx3 Code Status: [x_] [FULL CODE - Continue all advanced life support: CPR,intubation,invasive procedures] [_] [DNR-CCA - DO NOT do CPR, intubation] [_] [DNR-WHITE [employer]WALL [employer]FFER - Comfort care only] [_] DNR form [was/was not] signed Summary of discussion: The patient health care POA/ surrogate is the following: Patient. [Condition that instigated the ACP on this DOS, relevant PMH, functional status, goals of care, and whom this was discussed with including names and relationship to the patient, and any relevant advance care documentation discussion] I answered all the patient/family questions that I could within the range and scope of the current medical situation. We discussed the medical conditions, risks, benefits, outcomes, and goals of care at this time for the patient's medical issues at hand in the face of the patient's chronic issues and current presentation. Total time spent: 6 minutes were spent discussing the patient's resuscitation status, advance care planning, and end of life care, with patient and/or family/surrogate. Michael Urena MD Division of Hospitalist Medicine [facility] documented in this encounter [facility] 01-17-2024 Emergency department Note EMERGENCY DEPARTMENT ENCOUNTER Pt Name: Jorge Salamanca Birthdate 1945 Date of evaluation: 01/17/2024 ED Provider: Jose Robledo DO CHIEF COMPLAINT Chief Complaint Patient presents with Chest Pain HISTORY OF PRESENT ILLNESS (Location/Symptom, Timing/Onset, Context/Setting, Quality, Duration, Modifying Factors, Severity) Note limiting factors. I wore appropriate PPE for the entirety of this encounter. HPI Jorge Salamanca is a 78 y.o. who presents to the emergency department with chief complaint of chest pain. Located primarily in central chest with radiation to left shoulder and biceps region. Described as a aching sensation. Has been intermittent throughout the day. Associated with some shortness of breath. Noted decreased exercise tolerance as well. Noted he tried to visit his at [facility] in the walk from the parking lot to the hospital room was too much for him. No associated diaphoresis, syncope, leg swelling. No prior history of any heart disease or lung disease. Has not take any medications today. No strong family history of heart disease as well. Nursing Notes were reviewed. 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) Hyperlipemia Hypertension SURGICAL HISTORY Past Surgical History: Procedure Laterality Date TONSILLECTOMY (HISTORICAL) CURRENT MEDICATIONS Previous Medications No medications on file ALLERGIES Bee venom FAMILY HISTORY Family History Problem Relation Name Age of Onset No Known Problems Brother No Known Problems Brother Bipolar disorder Sister Arthritis Sister Lung cancer Father Alzheimer's disease Mother Cancer Father SOCIAL HISTORY Social History Socioeconomic History Marital status: Tobacco Use Smokeless tobacco: Never Tobacco comments: Quit smoking: smokes 3.5 packs daily Substance and Sexual Activity Alcohol use: Not Currently Drug use: Never PHYSICAL EXAM ED Triage Vitals [01/17/24 2334] Temp Heart Rate Resp BP -- 76 15 (!) 192/91 SpO2 Temp src Heart Rate Source Patient Position 97 % -- Monitor -- BP Location FiO2 (%) Right arm -- Physical Exam Vitals and nursing note reviewed. Constitutional: General: He is not in acute distress. Appearance: He is well-developed. HENT: Head: Normocephalic and atraumatic. Eyes: Conjunctiva/sclera: Conjunctivae normal. Cardiovascular: Rate and Rhythm: Normal rate and regular rhythm. Heart sounds: Murmur heard. Systolic murmur is present with a grade of 2/6. Pulmonary: Effort: Pulmonary effort is normal. No respiratory distress. Breath sounds: Normal breath sounds. Abdominal: Palpations: Abdomen is soft. Tenderness: There is no abdominal tenderness. Musculoskeletal: General: No swelling. Cervical back: Neck supple. Skin: General: Skin is warm and dry. Capillary Refill: Capillary refill takes less than 2 seconds. Coloration: Skin is pale. Neurological: Mental Status: He is alert and oriented to person, place, and time. Psychiatric: Mood and Affect: Mood normal. DIAGNOSTIC RESULTS RADIOLOGY (Per Emergency Physician): Interpretation per the Radiologist below, if available at the time of this note: XR chest 1 view Final Result 1. No focal infiltrates. 2. Diffuse miliary pattern in the lung morrow. This is nonspecific but may indicate histoplasmosis among other entities. Report Dictated on Electronically Signed By: Asher Santos MD Electronically Signed Date/Time: 01/17/2024 11:51 PM EDT LABS: Labs Reviewed CBC WITH AUTO DIFFERENTIAL - Abnormal Result Value Auto WBC 6.4 RBC 5.09 Hemoglobin 14.5 Hematocrit 43.8 MCV 86.1 MCH 28.5 MCHC 33.1 RDW 13.6 Platelets 152 MPV 11.6 nRBC 0.0 Neutrophils Relative 44.7 Lymphocytes Relative 45.6 (*) Monocytes Relative 6.3 Eosinophils Relative 2.4 Basophils Relative 0.8 Immature Grans % 0.2 Neutrophils Absolute 2.9 Lymphocytes Absolute 2.9 Monocytes Absolute 0.4 Eosinophils Absolute 0.2 Basophils Absolute 0.1 Immature Grans Absolute 0.0 BASIC METABOLIC PANEL - Abnormal SODIUM 141 POTASSIUM 3.8 CHLORIDE 108 (*) CARBON DIOXIDE 23 UREA NITROGEN 18 CREATININE 2.02 (*) GLUCOSE 256 (*) CALCIUM 8.6 ANION GAP 9 eGFR 33.5 (*) TROPONIN, WITH SERIAL REFLEX - Abnormal TROPONIN I 0.193 (*) Narrative: Patients with high levels of Biotin oral intake (ie >5 mg/day) may have falsely decreased Troponin levels. NT PRO BNP - Abnormal NT PRO BNP 1,340 (*) APTT - Normal APTT 28.4 Narrative: NOTE: The therapeutic time for Heparin anticoagulation, based on Xa activity inhibition, is an APTT of 46-80 seconds. TROPONIN I TROPONIN I APTT All other labs were within normal range or not returned as of this dictation. EMERGENCY DEPARTMENT COURSE and DIFFERENTIAL DIAGNOSIS/MDM: Vitals: Vitals: 01/17/24 2334 01/17/24 2351 01/18/24 0033 01/18/24 0102 BP: (!) 192/91 (!) 176/72 (!) 163/68 BP Location: Right arm Pulse: 76 75 76 Resp: 15 23 Temp: 36.4 C (97.6 F) TempSrc: Oral SpO2: 97% 99% 98% Weight: 81.6 kg (180 lb) Height: 1.676 m (5' 6) Medications heparin injection 4,000 Units (has no administration in time range) heparin injection 2,000 Units (has no administration in time range) heparin 25,000 units in dextrose 5% 250mL infusion (premix) (12 Units/kg/hr 81.6 kg IntraVENous New Bag 01/18/24 004) aspirin chewable tablet 324 mg (324 mg Oral Given 01/17/24 2351) heparin injection 4,000 Units (4,000 Units IntraVENous Given 01/18/24 0043) hydrALAZINE (Apresoline) injection 10 mg (10 mg IntraVENous Given 01/18/24 004) The patient presents with very classic story of chest pain. Pressure-like chest pain with radiation to left shoulder and bicep noted. Worse with exertion. At time of my assessment, he was largely chest pain-free. His EKG showed nonspecific T wave changes but there was no previous EKG to compare to. His initial troponin is elevated. Of note, his creatinine is at baseline. Prior history of CKD. Reviewed external results from his chart at [facility]. In November 2023, his creatinine was 1.91. Patient has no prior history of cardiac disease. He does not have a STEMI pattern EKG. He is currently hemodynamically stable and chest pain-free. Therefore, I do not believe he warrants urgent catheterization or transfer to higher level facility for urgent CCU evaluation. Will be started on heparin over strong suspicion for ACS. Aspirin also given. Given current stable appearance, suitable for admission to floor. Discussed patient's case with hospitalist Dr. Urena who accepted patient to their service. CRITICAL CARE TIME Total Critical Care time was 33 minutes, excluding separately reportable procedures. There was a high probability of clinically significant/life threatening deterioration in the patient's condition which required my urgent intervention. FINAL IMPRESSION 1. NSTEMI (non-ST elevated myocardial infarction) ([facility]) DISPOSITION Admit 01/18/2024 01:42:07 AM PATIENT REFERRED TO: No follow-up provider specified. DISCHARGE MEDICATIONS: New Prescriptions No medications on file (Comment: Please note this report has been produced using speech recognition software and may contain errors related to that system including errors in grammar, punctuation, and spelling, as well as words and phrases that may be inappropriate. If there are any questions or concerns please feel free to contact the dictating provider for clarification.) Jose Robledo DO (electronically signed) Emergency Medicine Provider Jose Robledo DO 01/18/24 0207 documented in this encounter [facility] 01-17-2024 Emergency department Note EMERGENCY DEPARTMENT ENCOUNTER Pt Name: Jorge Salamanca Birthdate 1945 Date of evaluation: 01/17/2024 ED Provider: Jose Robledo DO CHIEF COMPLAINT Chief Complaint Patient presents with Chest Pain HISTORY OF PRESENT ILLNESS (Location/Symptom, Timing/Onset, Context/Setting, Quality, Duration, Modifying Factors, Severity) Note limiting factors. I wore appropriate PPE for the entirety of this encounter. HPI Jorge Salamanca is a 78 y.o. who presents to the emergency department with chief complaint of chest pain. Located primarily in central chest with radiation to left shoulder and biceps region. Described as a aching sensation. Has been intermittent throughout the day. Associated with some shortness of breath. Noted decreased exercise tolerance as well. Noted he tried to visit his at [facility] in the walk from the parking lot to the hospital room was too much for him. No associated diaphoresis, syncope, leg swelling. No prior history of any heart disease or lung disease. Has not take any medications today. No strong family history of heart disease as well. Nursing Notes were reviewed. 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) Hyperlipemia Hypertension SURGICAL HISTORY Past Surgical History: Procedure Laterality Date TONSILLECTOMY (HISTORICAL) CURRENT MEDICATIONS Previous Medications No medications on file ALLERGIES Bee venom FAMILY HISTORY Family History Problem Relation Name Age of Onset No Known Problems Brother No Known Problems Brother Bipolar disorder Sister Arthritis Sister Lung cancer Father Alzheimer's disease Mother Cancer Father SOCIAL HISTORY Social History Socioeconomic History Marital status: Tobacco Use Smokeless tobacco: Never Tobacco comments: Quit smoking: smokes 3.5 packs daily Substance and Sexual Activity Alcohol use: Not Currently Drug use: Never PHYSICAL EXAM ED Triage Vitals [01/17/24 2334] Temp Heart Rate Resp BP -- 76 15 (!) 192/91 SpO2 Temp src Heart Rate Source Patient Position 97 % -- Monitor -- BP Location FiO2 (%) Right arm -- Physical Exam Vitals and nursing note reviewed. Constitutional: General: He is not in acute distress. Appearance: He is well-developed. HENT: Head: Normocephalic and atraumatic. Eyes: Conjunctiva/sclera: Conjunctivae normal. Cardiovascular: Rate and Rhythm: Normal rate and regular rhythm. Heart sounds: Murmur heard. Systolic murmur is present with a grade of 2/6. Pulmonary: Effort: Pulmonary effort is normal. No respiratory distress. Breath sounds: Normal breath sounds. Abdominal: Palpations: Abdomen is soft. Tenderness: There is no abdominal tenderness. Musculoskeletal: General: No swelling. Cervical back: Neck supple. Skin: General: Skin is warm and dry. Capillary Refill: Capillary refill takes less than 2 seconds. Coloration: Skin is pale. Neurological: Mental Status: He is alert and oriented to person, place, and time. Psychiatric: Mood and Affect: Mood normal. DIAGNOSTIC RESULTS RADIOLOGY (Per Emergency Physician): Interpretation per the Radiologist below, if available at the time of this note: XR chest 1 view Final Result 1. No focal infiltrates. 2. Diffuse miliary pattern in the lung morrow. This is nonspecific but may indicate histoplasmosis among other entities. Report Dictated on Electronically Signed By: Asher Santos MD Electronically Signed Date/Time: 01/17/2024 11:51 PM EDT LABS: Labs Reviewed CBC WITH AUTO DIFFERENTIAL - Abnormal Result Value Auto WBC 6.4 RBC 5.09 Hemoglobin 14.5 Hematocrit 43.8 MCV 86.1 MCH 28.5 MCHC 33.1 RDW 13.6 Platelets 152 MPV 11.6 nRBC 0.0 Neutrophils Relative 44.7 Lymphocytes Relative 45.6 (*) Monocytes Relative 6.3 Eosinophils Relative 2.4 Basophils Relative 0.8 Immature Grans % 0.2 Neutrophils Absolute 2.9 Lymphocytes Absolute 2.9 Monocytes Absolute 0.4 Eosinophils Absolute 0.2 Basophils Absolute 0.1 Immature Grans Absolute 0.0 BASIC METABOLIC PANEL - Abnormal SODIUM 141 POTASSIUM 3.8 CHLORIDE 108 (*) CARBON DIOXIDE 23 UREA NITROGEN 18 CREATININE 2.02 (*) GLUCOSE 256 (*) CALCIUM 8.6 ANION GAP 9 eGFR 33.5 (*) TROPONIN, WITH SERIAL REFLEX - Abnormal TROPONIN I 0.193 (*) Narrative: Patients with high levels of Biotin oral intake (ie >5 mg/day) may have falsely decreased Troponin levels. NT PRO BNP - Abnormal NT PRO BNP 1,340 (*) APTT - Normal APTT 28.4 Narrative: NOTE: The therapeutic time for Heparin anticoagulation, based on Xa activity inhibition, is an APTT of 46-80 seconds. TROPONIN I TROPONIN I APTT All other labs were within normal range or not returned as of this dictation. EMERGENCY DEPARTMENT COURSE and DIFFERENTIAL DIAGNOSIS/MDM: Vitals: Vitals: 01/17/24 2334 01/17/24 2351 01/18/24 0033 01/18/24 0102 BP: (!) 192/91 (!) 176/72 (!) 163/68 BP Location: Right arm Pulse: 76 75 76 Resp: 15 Temp: 36.4 C (97.6 F) TempSrc: Oral SpO2: 97% 99% 98% Weight: 81.6 kg (180 lb) Height: 1.676 m (5' 6) Medications heparin injection 4,000 Units (has no administration in time range) heparin injection 2,000 Units (has no administration in time range) heparin 25,000 units in dextrose 5% 250mL infusion (premix) (12 Units/kg/hr 81.6 kg IntraVENous New Bag 01/18/2442) aspirin chewable tablet 324 mg (324 mg Oral Given 01/17/242350) heparin injection 4,000 Units (4,000 Units IntraVENous Given 01/18/2442) hydrALAZINE (Apresoline) injection 10 mg (10 mg IntraVENous Given 01/18/2442) The patient presents with very classic story of chest pain. Pressure-like chest pain with radiation to left shoulder and bicep noted. Worse with exertion. At time of my assessment, he was largely chest pain-free. His EKG showed nonspecific T wave changes but there was no previous EKG to compare to. His initial troponin is elevated. Of note, his creatinine is at baseline. Prior history of CKD. Reviewed external results from his chart at [facility]. In November 2023, his creatinine was 1.91. Patient has no prior history of cardiac disease. He does not have a STEMI pattern EKG. He is currently hemodynamically stable and chest pain-free. Therefore, I do not believe he warrants urgent catheterization or transfer to higher level facility for urgent CCU evaluation. Will be started on heparin over strong suspicion for ACS. Aspirin also given. Given current stable appearance, suitable for admission to floor. Discussed patient's case with hospitalist Dr. Urena who accepted patient to their service. CRITICAL CARE TIME Total Critical Care time was 33 minutes, excluding separately reportable procedures. There was a high probability of clinically significant/life threatening deterioration in the patient's condition which required my urgent intervention. FINAL IMPRESSION 1. NSTEMI (non-ST elevated myocardial infarction) (HCC) DISPOSITION Admit 01/18/2024 01:42:07 AM PATIENT REFERRED TO: No follow-up provider specified. DISCHARGE MEDICATIONS: New Prescriptions No medications on file (Comment: Please note this report has been produced using speech recognition software and may contain errors related to that system including errors in grammar, punctuation, and spelling, as well as words and phrases that may be inappropriate. If there are any questions or concerns please feel free to contact the dictating provider for clarification.) Jose Robledo DO (electronically signed) Emergency Medicine Provider Jose Robledo DO 01/18/24 0207 documented in this encounter [facility] 01-17-2024 Physician Emergency department Note EMERGENCY DEPARTMENT ENCOUNTER Pt Name: Jorge Salamanca Birthdate 1945 Date of evaluation: 01/17/2024 ED Provider: Jose Robledo DO CHIEF COMPLAINT Chief Complaint Patient presents with Chest Pain HISTORY OF PRESENT ILLNESS (Location/Symptom, Timing/Onset, Context/Setting, Quality, Duration, Modifying Factors, Severity) Note limiting factors. I wore appropriate PPE for the entirety of this encounter. HPI Jorge Salamanca is a 78 y.o. who presents to the emergency department with chief complaint of chest pain. Located primarily in central chest with radiation to left shoulder and biceps region. Described as a aching sensation. Has been intermittent throughout the day. Associated with some shortness of breath. Noted decreased exercise tolerance as well. Noted he tried to visit his at [facility] in the walk from the parking lot to the hospital room was too much for him. No associated diaphoresis, syncope, leg swelling. No prior history of any heart disease or lung disease. Has not take any medications today. No strong family history of heart disease as well. Nursing Notes were reviewed. 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) Hyperlipemia Hypertension SURGICAL HISTORY Past Surgical History: Procedure Laterality Date TONSILLECTOMY (HISTORICAL) CURRENT MEDICATIONS Previous Medications No medications on file ALLERGIES Bee venom FAMILY HISTORY Family History Problem Relation Name Age of Onset No Known Problems Brother No Known Problems Brother Bipolar disorder Sister Arthritis Sister Lung cancer Father Alzheimer's disease Mother Cancer Father SOCIAL HISTORY Social History Socioeconomic History Marital status: Tobacco Use Smokeless tobacco: Never Tobacco comments: Quit smoking: smokes 3.5 packs daily Substance and Sexual Activity Alcohol use: Not Currently Drug use: Never PHYSICAL EXAM ED Triage Vitals [01/17/24 2334] Temp Heart Rate Resp BP -- 76 15 (!) 192/91 SpO2 Temp src Heart Rate Source Patient Position 97 % -- Monitor -- BP Location FiO2 (%) Right arm -- Physical Exam Vitals and nursing note reviewed. Constitutional: General: He is not in acute distress. Appearance: He is well-developed. HENT: Head: Normocephalic and atraumatic. Eyes: Conjunctiva/sclera: Conjunctivae normal. Cardiovascular: Rate and Rhythm: Normal rate and regular rhythm. Heart sounds: Murmur heard. Systolic murmur is present with a grade of 2/6. Pulmonary: Effort: Pulmonary effort is normal. No respiratory distress. Breath sounds: Normal breath sounds. Abdominal: Palpations: Abdomen is soft. Tenderness: There is no abdominal tenderness. Musculoskeletal: General: No swelling. Cervical back: Neck supple. Skin: General: Skin is warm and dry. Capillary Refill: Capillary refill takes less than 2 seconds. Coloration: Skin is pale. Neurological: Mental Status: He is alert and oriented to person, place, and time. Psychiatric: Mood and Affect: Mood normal. DIAGNOSTIC RESULTS RADIOLOGY (Per Emergency Physician): Interpretation per the Radiologist below, if available at the time of this note: XR chest 1 view Final Result 1. No focal infiltrates. 2. Diffuse miliary pattern in the lung morrow. This is nonspecific but may indicate histoplasmosis among other entities. Report Dictated on Electronically Signed By: Asher Santos MD Electronically Signed Date/Time: 01/17/2024 11:51 PM EDT LABS: Labs Reviewed CBC WITH AUTO DIFFERENTIAL - Abnormal Result Value Auto WBC 6.4 RBC 5.09 Hemoglobin 14.5 Hematocrit 43.8 MCV 86.1 MCH 28.5 MCHC 33.1 RDW 13.6 Platelets 152 MPV 11.6 nRBC 0.0 Neutrophils Relative 44.7 Lymphocytes Relative 45.6 (*) Monocytes Relative 6.3 Eosinophils Relative 2.4 Basophils Relative 0.8 Immature Grans % 0.2 Neutrophils Absolute 2.9 Lymphocytes Absolute 2.9 Monocytes Absolute 0.4 Eosinophils Absolute 0.2 Basophils Absolute 0.1 Immature Grans Absolute 0.0 BASIC METABOLIC PANEL - Abnormal SODIUM 141 POTASSIUM 3.8 CHLORIDE 108 (*) CARBON DIOXIDE 23 UREA NITROGEN 18 CREATININE 2.02 (*) GLUCOSE 256 (*) CALCIUM 8.6 ANION GAP 9 eGFR 33.5 (*) TROPONIN, WITH SERIAL REFLEX - Abnormal TROPONIN I 0.193 (*) Narrative: Patients with high levels of Biotin oral intake (ie >5 mg/day) may have falsely decreased Troponin levels. NT PRO BNP - Abnormal NT PRO BNP 1,340 (*) APTT - Normal APTT 28.4 Narrative: NOTE: The therapeutic time for Heparin anticoagulation, based on Xa activity inhibition, is an APTT of 46-80 seconds. TROPONIN I TROPONIN I APTT All other labs were within normal range or not returned as of this dictation. EMERGENCY DEPARTMENT COURSE and DIFFERENTIAL DIAGNOSIS/MDM: Vitals: Vitals: 01/17/24 2334 01/17/24 2351 01/18/24 0033 01/18/24 0102 BP: (!) 192/91 (!) 176/72 (!) 163/68 BP Location: Right arm Pulse: 76 75 76 Resp: 15 23 Temp: 36.4 C (97.6 F) TempSrc: Oral SpO2: 97% 99% 98% Weight: 81.6 kg (180 lb) Height: 1.676 m (5' 6) Medications heparin injection 4,000 Units (has no administration in time range) heparin injection 2,000 Units (has no administration in time range) heparin 25,000 units in dextrose 5% 250mL infusion (premix) (12 Units/kg/hr 81.6 kg IntraVENous New Bag 01/18/2442) aspirin chewable tablet 324 mg (324 mg Oral Given 01/17/24 2351) heparin injection 4,000 Units (4,000 Units IntraVENous Given 01/18/2442) hydrALAZINE (Apresoline) injection 10 mg (10 mg IntraVENous Given 01/18/2442) The patient presents with very classic story of chest pain. Pressure-like chest pain with radiation to left shoulder and bicep noted. Worse with exertion. At time of my assessment, he was largely chest pain-free. His EKG showed nonspecific T wave changes but there was no previous EKG to compare to. His initial troponin is elevated. Of note, his creatinine is at baseline. Prior history of CKD. Reviewed external results from his chart at [facility]. In November 2023, his creatinine was 1.91. Patient has no prior history of cardiac disease. He does not have a STEMI pattern EKG. He is currently hemodynamically stable and chest pain-free. Therefore, I do not believe he warrants urgent catheterization or transfer to higher level facility for urgent CCU evaluation. Will be started on heparin over strong suspicion for ACS. Aspirin also given. Given current stable appearance, suitable for admission to floor. Discussed patient's case with hospitalist Dr. Urena who accepted patient to their service. CRITICAL CARE TIME Total Critical Care time was 33 minutes, excluding separately reportable procedures. There was a high probability of clinically significant/life threatening deterioration in the patient's condition which required my urgent intervention. FINAL IMPRESSION 1. NSTEMI (non-ST elevated myocardial infarction) ([facility]) DISPOSITION Admit 01/18/2024 01:42:07 AM PATIENT REFERRED TO: No follow-up provider specified. DISCHARGE MEDICATIONS: New Prescriptions No medications on file (Comment: Please note this report has been produced using speech recognition software and may contain errors related to that system including errors in grammar, punctuation, and spelling, as well as words and phrases that may be inappropriate. If there are any questions or concerns please feel free to contact the dictating provider for clarification.) Jose Robledo DO (electronically signed) Emergency Medicine Provider Jose Robledo DO 01/18/24 0207 [facility] 12-18-2023 Evaluation note Diagnosis Type 2 diabetes mellitus with stage 3 chronic kidney disease, without long-term current use of insulin, unspecified whether stage 3a or 3b CKD (HCC)- Primary Benign essential hypertension Essential hypertension, benign Stage 3b chronic kidney disease (HCC) Mixed hyperlipidemia Acquired hypothyroidism Unspecified hypothyroidism Arthritis of both knees Unspecified arthropathy, lower leg Class 1 obesity with body mass index (BMI) of 30.0 to 30.9 in adult, unspecified obesity type, unspecified whether serious comorbidity present Vitamin B12 deficiency Other B-complex deficiencies documented in this encounter [facility]07-22-2024 Telephone encounter Note* Telephone Encounter - Rachael Saini LPN - 12/17/2023 2:44 PM EDT Pharmacy faxed requesting the following refill Refill(s) Requested: Requested Prescriptions Pending Prescriptions Disp Refills gabapentin (NEURONTIN) 300 mg capsule [Pharmacy Med Name: NEURONTIN CAP 300MG] 360 capsule 1 Sig: TAKE 2 CAPSULES BY MOUTH IN THE MORNING AND 2 CAPSULES IN THE EVENING ALLERGIES Allergen Reactions Bee Pollen Hives Covid-19 Vacc,Mrna(* Intolerance, Myalgia Numbness in hand and pain Venom-Honey Bee Hives (home) [phone] (cell) Last Office Visit Date: 12/13/2023 Last [facility] Visit: Visit date not found Future Appointment: 06/13/2024 The patients preferred pharmacy has been captured for this encounter? yes Request is for script(s) to be escript to pharmacy. Rachael Saini LPN [facility]07-22-2024 Miscellaneous Notes* Telephone Encounter - Rachael Saini LPN - 12/17/2023 2:44 PM EDT Pharmacy faxed requesting the following refill Refill(s) Requested: Requested Prescriptions Pending Prescriptions Disp Refills gabapentin (NEURONTIN) 300 mg capsule [Pharmacy Med Name: NEURONTIN CAP 300MG] 360 capsule 1 Sig: TAKE 2 CAPSULES BY MOUTH IN THE MORNING AND 2 CAPSULES IN THE EVENING ALLERGIES Allergen Reactions Bee Pollen Hives Covid-19 Vacc,Mrna(* Intolerance, Myalgia Numbness in hand and pain Venom-Honey Bee Hives (home) [phone] (cell) Last Office Visit Date: 12/13/2023 Last [facility] Health Visit: Visit date not found Future Appointment: 06/13/2024 The patients preferred pharmacy has been captured for this encounter? yes Request is for script(s) to be escript to pharmacy. Rachael Saini LPN documented in [facility] encounter[facility] NoteHNO ID: [id number] Author: ?, ?, ? Service: ? Author Type: ? Type: Progress Notes Filed: 12/18/2023 15:11 Note Text: [facility] Lidia Dodsonland DO [address] [place] [address] Date of Evaluation: 12/13/2023 Patient Name: Jorge Salamanca : 1945 Chief Complaint: Patient presents with: F/U Diabetes 6 Month Lab AND Test Results: Patient had blood work prior to today's appointment Hypertension Knee Pain: Wanting a referral for this Nursing Intake: There are no exam notes on file for this visit. Subjective Mr. Salamanca is a 78 year old male who presents with the following complaint(s): The history is provided by the patient. No workforce planner was used. Hypertension This is a chronic problem. The current episode started more than 1 year ago. The problem is controlled. Pertinent negatives include no chest pain, headaches, palpitations or shortness of breath. Identifiable causes of hypertension include a thyroid problem. Right knee injury: No Left knee injury: No Right knee condition: Chronic Left knee condition: Chronic Right knee severity: Moderate Left knee severity: Moderate Right knee aggravating factors: Regular daily ambulation. Left knee aggravating factors: Regular daily ambulation. Diabetes He presents for his follow-up diabetic visit. He has type 2 diabetes mellitus. Pertinent negatives for hypoglycemia include no dizziness, headaches or nervousness/anxiousness. Pertinent negatives for diabetes include no chest pain, no fatigue and no weakness. Hypercholesterolemia This is a chronic problem. The current episode started more than 1 year ago. Pertinent negatives include no chest pain or shortness of breath. Thyroid Problem Presents for follow-up visit. Patient reports no anxiety, fatigue or palpitations. Review of Systems Constitutional: Negative for fatigue and unexpected weight change. HENT: Negative for nosebleeds. Eyes: Negative for redness and visual disturbance. Respiratory: Negative for apnea, cough and shortness of breath. Cardiovascular: Negative for chest pain, palpitations and leg swelling. Genitourinary: Negative for hematuria. Neurological: Negative for dizziness, weakness, light-headedness, numbness and headaches. Hematological: Does not bruise/bleed easily. Psychiatric/Behavioral: The patient is not nervous/anxious. PAST MEDICAL HISTORY Diagnosis Date Arthritis Backache Benign essential hypertension Diarrhea Hypothyroidism Idiopathic peripheral autonomic neuropathy Impotence of organic origin Malaise and fatigue Migraine with aura Mixed hyperlipidemia Obesity Pain in joint involving ankle and foot Type 2 diabetes mellitus without complication (HCC) History reviewed. No pertinent surgical history. History reviewed. No pertinent family history. Social History Tobacco Use Smoking status: Former Types: Cigarettes Quit date: 05/19/1975 Years since quittin.6 Smokeless tobacco: Never Vaping Use Vaping Use: Never used Substance Use Topics Alcohol use: Yes Comment: seldom Drug use: Never Current Outpatient Medications Medication Sig omega-3/dha/epa/fish oil (OMEGA-3 FISH OIL ORAL) Take by mouth. gabapentin (NEURONTIN) 300 mg capsule TAKE 2 CAPSULES IN THE MORNING AND 2 CAPSULES BY MOUTH IN THE EVENING amLODIPine (NORVASC) 5 mg tablet Take 1 tablet by mouth once daily. levothyroxine (SYNTHROID) 100 mcg tablet Take 1 tablet by mouth once daily. metoprolol succinate ER (TOPROL XL) 100 mg Take 1 tablet by mouth once daily. blood sugar diagnostic (ONETOUCH ULTRA TEST) test strip CHECK BLOOD SUGAR THREE TIMES DAILY cholecalciferol (VITAMIN D3) 5,000 unit tab Take 5,000 Units by mouth once daily. blood sugar diagnostic (ONETOUCH ULTRA TEST STRIP) test strip OneTouch Ultra Test strips Take 1 strip 4 times a day by miscell. route for 90 days. No current facility-administered medications for this visit. I have confirmed and edited as necessary the past medical, family and social histories, HPI, and ROS obtained by others. Objective BP 110/68 Pulse 56 Temp 97.5 Ht 5' 6 (1.68m) Wt 186 lb (84.4kg) SpO2 97% BMI 30.04 kg/(m2). Physical Exam Vitals and nursing note reviewed. Constitutional: General: He is not in acute distress. Appearance: Normal appearance. He is not ill-appearing. HENT: Head: Normocephalic. Nose: Nose normal. Eyes: General: Lids are normal. Conjunctiva/sclera: Conjunctivae normal. Pupils: Pupils are equal, round, and reactive to light. Cardiovascular: Rate and Rhythm: Normal rate and regular rhythm. Heart sounds: Normal heart sounds. Abdominal: Tenderness: There is no abdominal tenderness. Musculoskeletal: General: No swelling or tenderness. Normal range of motion. Cervical back: Full passive range of m (more content not included)...[facility]07-18-2024 History of Present illness Narrative* Riya Miranda Maliha - 12/13/2023 10:18 AM EDT Images from the original note were not included. [facility] [place] Regent DO [address] [place] [address] Date of Evaluation: 12/13/2023 Patient Name: Jorge Salamanca : 1945 Chief Complaint: Patient presents with: F/U Diabetes 6 Month Lab & Test Results: Patient had blood work prior to today's appointment Hypertension Knee Pain: Wanting a referral for this Nursing Intake: There are no exam notes on file for this visit. Subjective Mr. Salamanca is a 78 year old male who presents with the following complaint(s): The history is provided by the patient. No workforce planner was used. Hypertension This is a chronic problem. The current episode started more than 1 year ago. The problem is controlled. Pertinent negatives include no chest pain, headaches, palpitations or shortness of breath. Identifiable causes of hypertension include a thyroid problem. Right knee injury: No Left knee injury: No Right knee condition: Chronic Left knee condition: Chronic Right knee severity: Moderate Left knee severity: Moderate Right knee aggravating factors: Regular daily ambulation. Left knee aggravating factors: Regular daily ambulation. Diabetes He presents for his follow-up diabetic visit. He has type 2 diabetes mellitus. Pertinent negatives for hypoglycemia include no dizziness, headaches or nervousness/anxiousness. Pertinent negatives fordiabetes include no chest pain, no fatigue and no weakness. Hypercholesterolemia This is a chronic problem. The current episode started more than 1 year ago. Pertinent negatives include no chest pain or shortness of breath. Thyroid Problem Presents for follow-up visit. Patient reports no anxiety, fatigue or palpitations. Review of Systems Constitutional: Negative for fatigue and unexpected weight change. HENT: Negative for nosebleeds. Eyes: Negative for redness and visual disturbance. Respiratory: Negative for apnea, cough and shortness of breath. Cardiovascular: Negative for chest pain, palpitations and leg swelling. Genitourinary: Negative for hematuria. Neurological: Negative for dizziness, weakness, light-headedness, numbness and headaches. Hematological: Does not bruise/bleed easily. Psychiatric/Behavioral: The patient is not nervous/anxious. PAST MEDICAL HISTORY Diagnosis Date Arthritis Backache Benign essential hypertension Diarrhea Hypothyroidism Idiopathic peripheral autonomic neuropathy Impotence of organic origin Malaise and fatigue Migraine with aura Mixed hyperlipidemia Obesity Pain in joint involving ankle and foot Type 2 diabetes mellitus without complication (HCC) History reviewed. No pertinent surgical history. History reviewed. No pertinent family history. Social History Tobacco Use Smoking status: Former Types: Cigarettes Quit date: 05/19/1975 Years since quittin.6 Smokeless tobacco: Never Vaping Use Vaping Use: Never used Substance Use Topics Alcohol use: Yes Comment: seldom Drug use: Never Current Outpatient Medications Medication Sig omega-3/dha/epa/fish oil (OMEGA-3 FISH OIL ORAL) Take by mouth. gabapentin (NEURONTIN) 300 mg capsule TAKE 2 CAPSULES IN THE MORNING AND 2 CAPSULES BY MOUTH IN THEEVENING amLODIPine (NORVASC) 5 mg tablet Take 1 tablet by mouth once daily. levothyroxine (SYNTHROID) 100 mcg tablet Take 1 tablet by mouth once daily. metoprolol succinate ER (TOPROL XL) 100 mg Take 1 tablet by mouth once daily. blood sugar diagnostic (ONETOUCH ULTRA TEST) test strip CHECK BLOOD SUGAR THREE TIMES DAILY cholecalciferol (VITAMIN D3) 5,000 unit tab Take 5,000 Units by mouth once daily. blood sugar diagnostic (ONETOUCH ULTRA TEST STRIP) test strip OneTouch Ultra Test strips Take 1 strip 4 times a day by miscell. route for 90 days. No current facility-administered medications for this visit. I have confirmed and edited as necessary the past medical, family and social histories, HPI, and ROS obtained by others. Objective BP 110/68 Pulse 56 Temp 97.5 Ht 5' 6 (1.68m) Wt 186 lb (84.4kg) SpO2 97% BMI 30.04 kg/(m^2). Physical Exam Vitals and nursing note reviewed. Constitutional: General: He is not in acute distress. Appearance: Normal appearance. He is not ill-appearing. HENT: Head: Normocephalic. Nose: Nose normal. Eyes: General: Lids are normal. Conjunctiva/sclera: Conjunctivae normal. Pupils: Pupils are equal, round, and reactive to light. Cardiovascular: Rate and Rhythm: Normal rate and regular rhythm. Heart sounds: Normal heart sounds. Abdominal: Tenderness: There is no abdominal tenderness. Musculoskeletal: General: No swelling or tenderness. Normal range of motion. Cervical back: Full passive range of motion without pain. Right lower leg: No edema. Left lower leg: No edema. Feet: Comments: Normal Monofilament. Lymphadenopathy: Cervical: No cervical adenopathy. Skin: General: Skin is warm. Neurological: General: No focal deficit present. Mental Status: He is alert and oriented to person, place, and time. Psychiatric: Attention and Perception: Attention and perception normal. Mood and Affect: Mood normal. Speech: Speech normal. Behavior: Behavior normal. Thought Content: Thought content normal. Cognition and Memory: Cognition and memory normal. Judgment: Judgment normal. Data Reviewed: Most recent labs ASSESSMENT/PLAN: 1. Type 2 diabetes mellitus with stage 3 chronic kidney disease, without long- term current use of insulin, unspecified whether stage 3a or 3b CKD (HCC) - ICD9: 250.40, 585.3, ICD10: E11.22, N18.30 (primary diagnosis) - Controlled - Due to weight loss and low A1C Discontinue Amaryl at this time. - HEMOGLOBIN A1C (POC) 2. Benign essential hypertension - ICD9: 401.1, ICD10: I10 - Controlled - Continue current medications - Recommend home blood pressure monitoring, to bring results to next visit - Encouraged sodium restriction, DASH or Mediterranean diet - Recommend regular aerobic exercise 3. Stage 3b chronic kidney disease (HCC) - ICD9: 585.3, ICD10: N18.32 4. Mixed hyperlipidemia - ICD9: 272.2, ICD10: E78.2 5. Acquired hypothyroidism - ICD9: 244.9, ICD10: E03.9 6. Arthritis of both knees - ICD9: 716.96, ICD10: M17.0 - Refer to Ortho. - CONSULT TO ORTHOPAEDICS 7. Class 1 obesity with body mass index (BMI) of 30.0 to 30.9 in adult, unspecified obesity type, unspecified whether serious comorbidity present - ICD9: 278.00, V85.30, ICD10: E66.9, Z68.30 8. Vitamin B12 deficiency - ICD9: 266.2, ICD10: E53.8 - Check b12 level - VITAMIN B12 Eric Nicolas DO Feet:Shoes and socks removed and sensitive to 10 gm monofilament Return in about 6 months (around 06/14/2024) for medication follow up, a1c. Attestation: Scribe Attestation: The patient is seen and examined by Dr. Nicolas and the following reflects his/her service. Scribed by Luigi Phan December 13, 2023 10:42 AMProvider Attestation: I, Eric Nicolas DO personally performed the services described in this documentation. All medical record entries made by the scribe were at my direction and in my presence. I have reviewed the chart and discharge instructions (if applicable) and agree that the record reflects my personal per formance and is accurate and complete. Electronically Signed: Eric Nicolas DO, December 13, 2023 10:48 AM documented in this encounterWhite Hospital04-18-2024 Miscellaneous Notes* Telephone Encounter - Damir Jeffrey LPN - 09/13/2023 4:06 PM EDT Spoke with the patient who advised the Paxlovid tastes terrible and he is unable to tolerate the medication, states it causes him to vomit and he has no appetite and drinking minimal fluids due to nausea. Advised the patient stop the medication and I would let Dr. Nicolas know. The patient states he is having fatigue and chills but no shortness of breath or respiratory issues. Advised if he has any worsening of symptoms to please let the office know. * Telephone Encounter - Damir Jeffrey LPN - 09/13/2023 2:00 PM EDT The patient called in and left a voicemail stating he received a call from our office an hour ago. Called patient back to advise his Paxlovid was sent to [facility] in [place]. Left message to call patient * Telephone Encounter - Nadia Conte - 09/13/2023 11:24 AM EDT Pharmacy called and states [facility] does not fill Paxlovid so send to [facility] in [place], [place] Nadia Conte documented in this encounterWhite Hospital04-16-2024 Miscellaneous Notes* Telephone Encounter - Damir Jeffrey LPN - 09/11/2023 2:27 PM EDT Script re pended to be sent to [facility] in [place]. * Telephone Encounter - Eric Nicolas DO - 09/11/2023 2:06 PM EDT sent * Telephone Encounter - Damir Jeffrey LPN - 09/11/2023 11:35 AM EDT The patients Tabatha called in and left a voicemail stating the patient tested positive for Covid yesterday and is requesting a script for Paxlovid. Please advise RANDALL Murillo documented in this encounterWhite Hospital12-19-2023 History of Present illness Narrative* Eric Nicolas DO - 05/15/2023 1:37 PM EST Images from the original note were not included. [facility] [place] Eric NicolasDO [address] [place] [address] Date of Evaluation: 05/15/2023 Patient Name: Jorge Salamanca : 1945 Chief Complaint: Patient presents with: Hypertension Hyperlipidemia Nursing Intake: There are no exam notes on file for this visit. Subjective Mr. Salamanca is a 78 year old male who presents with the following complaint(s): The history is provided by the patient. Hypertension This is a chronic problem. The current episode started more than 1 year ago. Pertinent negatives include no chest pain, headaches, palpitations or shortness of breath. Identifiable causes of hypertension include a thyroid problem. Hypercholesterolemia This is a chronic problem. The current episode started more than 1 year ago. Pertinent negatives include no chest pain or shortness of breath. Thyroid Problem Presents for follow-up visit. Patient reports no anxiety, fatigue or palpitations. The symptoms have been stable. Review of Systems Constitutional: Negative for fatigue and unexpected weight change. HENT: Negative for nosebleeds. Eyes: Negative for redness and visual disturbance. Respiratory: Negative for apnea, cough and shortness of breath. Cardiovascular: Negative for chest pain, palpitations and leg swelling. Genitourinary: Negative for hematuria. Neurological: Negative for dizziness, weakness, light-headedness, numbness and headaches. Hematological: Does not bruise/bleed easily. Psychiatric/Behavioral: The patient is not nervous/anxious. PAST MEDICAL HISTORY Diagnosis Date Arthritis Backache Benign essential hypertension Diarrhea Hypothyroidism Idiopathic peripheral autonomic neuropathy Impotence of organic origin Malaise and fatigue Migraine with aura Mixed hyperlipidemia Obesity Pain in joint involving ankle and foot Type 2 diabetes mellitus without complication (HCC) No past surgical history on file. No family history on file. Social History Tobacco Use Smoking status: Former Types: Cigarettes Quit date: 05/19/1975 Years since quittin.0 Smokeless tobacco: Never Vaping Use Vaping Use: Never used Substance Use Topics Alcohol use: Yes Comment: seldom Drug use: Never Current Outpatient Medications Medication Sig gabapentin (NEURONTIN) 300 mg capsule TAKE 2 CAPSULES IN THE MORNING AND 2 CAPSULES BY MOUTH IN THEEVENING glimepiride (AMARYL) 1 mg tablet TAKE 1 TABLET BY MOUTH ONCE A DAY WITH DINNER cholecalciferol (VITAMIN D3) 5,000 unit tab Take 5,000 Units by mouth once daily. amLODIPine (NORVASC) 5 mg tablet Take 1 tablet by mouth once daily. levothyroxine (SYNTHROID) 100 mcg tablet Take 1 tablet by mouth once daily. metoprolol succinate ER (TOPROL XL) 100 mg Take 1 tablet by mouth once daily. blood sugar diagnostic (ONETOUCH ULTRA TEST) test strip CHECK BLOOD SUGAR THREE TIMES DAILY metFORMIN (GLUCOPHAGE) 1,000 mg tablet Take 1 tablet by mouth daily with breakfast. meloxicam (MOBIC) 15 mg tablet cyanocobalamin (VITAMIN B-12) 100 mcg tab Take 50 mcg by mouth. blood sugar diagnostic (ONETOUCH ULTRA TEST STRIP) test strip OneTouch Ultra Test strips Take 1 strip 4 times a day by miscell. route for 90 days. No current facility-administered medications for this visit. I have confirmed and edited as necessary the past medical, family and social histories, HPI, and ROS obtained by others. Objective BP 130/74 Pulse 68 Ht 5' 6 (1.68m) Wt 188 lb (85.3kg) SpO2 96% BMI 30.36 kg/(m^2). Physical Exam Vitals and nursing note reviewed. Constitutional: General: He is not in acute distress. Appearance: Normal appearance. He is well-developed. He is not ill-appearing. HENT: Head: Normocephalic. Right Ear: Tympanic membrane, ear canal and external ear normal. There is no impacted cerumen. Left Ear: Tympanic membrane, ear canal and external ear normal. There is no impacted cerumen. Nose: Nose normal. Mouth/Throat: Mouth: Mucous membranes are moist. Pharynx: Oropharynx is clear. Uvula midline. No oropharyngeal exudate or posterior oropharyngeal erythema. Eyes: General: Lids are normal. Vision grossly intact. Gaze aligned appropriately. No scleral icterus. Right eye: No discharge. Left eye: No discharge. Extraocular Movements: Extraocular movements intact. Conjunctiva/sclera: Conjunctivae normal. Pupils: Pupils are equal, round, and reactive to light. Neck: Thyroid: No thyroid mass, thyromegaly or thyroid tenderness. Vascular: No carotid bruit. Trachea: Trachea and phonation normal. Cardiovascular: Rate and Rhythm: Normal rate and regular rhythm. Pulses: Normal pulses. Heart sounds: Normal heart sounds. Pulmonary: Effort: Pulmonary effort is normal. Breath sounds: Normal breath sounds. Abdominal: General: Abdomen is flat. Bowel sounds are normal. Palpations: Abdomen is soft. Musculoskeletal: General: Normal range of motion. Right shoulder: Normal. Left shoulder: Normal. Cervical back: Normal, full passive range of motion without pain and neck supple. No tenderness. Nospinous process tenderness. Thoracic back: Normal. Lumbar back: Normal. Right knee: Normal. Left knee: Normal. Right lower leg: No edema. Left lower leg: No edema. Lymphadenopathy: Cervical: No cervical adenopathy. Skin: General: Skin is warm and dry. Neurological: General: No focal deficit present. Mental Status: He is alert and oriented to person, place, and time. Mental status is at baseline. Sensory: Sensation is intact. Motor: Motor function is intact. Psychiatric: Attention and Perception: Attention and perception normal. Mood and Affect: Mood normal. Speech: Speech normal. Behavior: Behavior normal. Thought Content: Thought content normal. Judgment: Judgment normal. Data Reviewed: Most recent labs ASSESSMENT/PLAN: 1. Benign essential hypertension - ICD9: 401.1, ICD10: I10 (primary diagnosis) - Controlled - Continue current medications - Recommend home blood pressure monitoring, to bring results to next visit - Encouraged sodium restriction, DASH or Mediterranean diet - Recommend regular aerobic exercise - AMLODIPINE 5 MG TABLET - METOPROLOL SUCCINATE ER 100 MG TABLET,EXTENDED RELEASE 24 HR 2. Acquired hypothyroidism - ICD9: 244.9, ICD10: E03.9 - LEVOTHYROXINE 100 MCG TABLET 3. Mixed hyperlipidemia - ICD9: 272.2, ICD10: E78.2 - Control undetermined, due for labs - CBC + DIFF - COMP METABOLIC PANEL - LIPID PANEL BASIC 4. 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 Screening for thyroid disorder - ICD9: V77.0, ICD10: Z13.29 - TSH BLD 6. Screening for prostate cancer - ICD9: V76.44, ICD10: Z12.5 - PSA/PROSTSPECAG SCRN 7. Stage 3b chronic kidney disease (HCC) - ICD9: 585.3, ICD10: N18.32 - Managed by Nephrology. 8. Obesity, Class I, BMI 30-34.9 - ICD9: 278.00, ICD10: E66.9 Return in about 6 months (around 11/14/2023) for medication follow up. Attestation: Scribe Statement: Alessandra Miranda am scribing for, and in the presence of, Eric Nicolas DO May 15, 2023 1:38 PM. Physician Statement: IEric DO, personally performed the services described in the documentation, as scribed by Riya Miranda in my presence, and it is both accurate and complete May 15, 2023 1:56 PM. documented in this encounterWhite Hospital10-04-2023 Miscellaneous Notes* Telephone Encounter - Damir Jeffrey LPN - 02/28/2023 2:09 PM EDT Pharmacy faxed requesting the following refill Refill(s) Requested: Requested Prescriptions Pending Prescriptions Disp Refills blood sugar diagnostic (ONETOUCH ULTRA TEST) test strip [Pharmacy Med Name: ONETOUCH ULTRA TEST STRIPS] Sig: CHECK BLOOD SUGAR THREE TIMES DAILY ALLERGIES Allergen Reactions Bee Pollen Hives Covid-19 Vacc,Mrna(* Intolerance, Myalgia Numbness in hand and pain [facility] (home) [phone] (cell) Last Office Visit Date: 11/13/2022 Last Distance Health Visit: Visit date not found Future Appointment: 05/15/2023 The patients preferred pharmacy has been captured for this encounter? yes Request is for script(s) to be escript to pharmacy. Damir Jeffrey LPN documented in this encounterWhite Hospital06-19-2023 History of Present illness Narrative* Riya Miranda - 11/13/2022 1:07 PM EDT Images from the original note were not included. [facility], [address] [place] [address] Date of Evaluation: 11/13/2022 Patient Name: Jorge Salamanca : 1945 Chief Complaint: Patient presents with: Follow Up: 6 month Diabetes follow up after seeing kidney specialist Nursing Intake: There are no exam notes on file for this visit. Subjective Mr. Salamanca is a 77 year old male who presents with the following complaint(s): The history is provided by the patient. No workforce planner was used. Diabetes He presents for his follow-up diabetic visit. Pertinent negatives for hypoglycemia include no dizziness, headaches or nervousness/anxiousness. Pertinent negatives for diabetes include no chest pain, no fatigue and no weakness. Review of Systems Constitutional: Negative for fatigue and unexpected weight change. HENT: Negative for nosebleeds. Eyes: Negative for redness and visual disturbance. Respiratory: Negative for apnea, cough and shortness of breath. Cardiovascular: Negative for chest pain, palpitations and leg swelling. Genitourinary: Negative for hematuria. Neurological: Negative for dizziness, weakness, light-headedness, numbness and headaches. Hematological: Does not bruise/bleed easily. Psychiatric/Behavioral: The patient is not nervous/anxious. PAST MEDICAL HISTORY Diagnosis Date Arthritis Backache Benign essential hypertension Diarrhea Hypothyroidism Idiopathic peripheral autonomic neuropathy Impotence of organic origin Malaise and fatigue Migraine with aura Mixed hyperlipidemia Obesity Pain in joint involving ankle and foot Type 2 diabetes mellitus without complication (HCC) No past surgical history on file. No family history on file. Social History Tobacco Use Smoking status: Former Types: Cigarettes Quit date: 05/19/1975 Years since quittin.5 Smokeless tobacco: Never Vaping Use Vaping Use: Never used Substance Use Topics Alcohol use: Yes Comment: seldom Drug use: Never Current Outpatient Medications Medication Sig glimepiride (AMARYL) 1 mg tablet TAKE 1 TABLET BY MOUTH ONCE A DAY WITH DINNER amLODIPine (NORVASC) 5 mg tablet Take 1 tablet by mouth once daily. levothyroxine (SYNTHROID) 100 mcg tablet Take 1 tablet by mouth once daily. gabapentin (NEURONTIN) 300 mg capsule TAKE 1 CAPSULE IN THE MORNING , 1 CAPSULE AT LUNCH , AND 2 CAPSULES BY MOUTH IN THE EVENING (Patient taking differently: TAKE 2 CAPSULES IN THE MORNING AND 2 CAPSULES BY MOUTH IN THE EVENING) metoprolol succinate ER (TOPROL XL) 100 mg Take 1 tablet by mouth once daily. blood sugar diagnostic (ONETOUCH ULTRA TEST) test strip Pt to check blood sugar three times daily cholecalciferol (VITAMIN D3) 5,000 unit tab Take 5,000 Units by mouth once daily. metFORMIN (GLUCOPHAGE) 1,000 mg tablet Take 1 tablet by mouth daily with breakfast. meloxicam (MOBIC) 15 mg tablet cyanocobalamin (VITAMIN B-12) 100 mcg tab Take 50 mcg by mouth. blood sugar diagnostic (ONETOUCH ULTRA TEST STRIP) test strip OneTouch Ultra Test strips Take 1 strip 4 times a day by miscell. route for 90 days. No current facility-administered medications for this visit. I have confirmed and edited as necessary the past medical, family and social histories, HPI, and ROS obtained by others. Objective BP 124/64 Pulse 58 Temp 98.2 Ht 5' 6 (1.68m) Wt 190 lb (86.2kg) SpO2 97% BMI 30.68 kg/(m^2). Physical Exam Vitals and nursing note reviewed. Constitutional: General: He is not in acute distress. Appearance: Normal appearance. He is well-developed. He is not ill-appearing. HENT: Head: Normocephalic. Right Ear: Tympanic membrane, ear canal and external ear normal. There is no impacted cerumen. Left Ear: Tympanic membrane, ear canal and external ear normal. There is no impacted cerumen. Nose: Nose normal. Mouth/Throat: Mouth: Mucous membranes are moist. Pharynx: Oropharynx is clear. Uvula midline. No oropharyngeal exudate or posterior oropharyngeal erythema. Eyes: General: Lids are normal. Vision grossly intact. Gaze aligned appropriately. No scleral icterus. Right eye: No discharge. Left eye: No discharge. Extraocular Movements: Extraocular movements intact. Conjunctiva/sclera: Conjunctivae normal. Pupils: Pupils are equal, round, and reactive to light. Neck: Thyroid: No thyroid mass, thyromegaly or thyroid tenderness. Vascular: No carotid bruit. Trachea: Trachea and phonation normal. Cardiovascular: Rate and Rhythm: Normal rate and regular rhythm. Pulses: Normal pulses. Heart sounds: Normal heart sounds. Pulmonary: Effort: Pulmonary effort is normal. Breath sounds: Normal breath sounds. Abdominal: General: Abdomen is flat. Bowel sounds are normal. Palpations: Abdomen is soft. Musculoskeletal: General: Normal range of motion. Right shoulder: Normal. Left shoulder: Normal. Cervical back: Normal, full passive range of motion without pain and neck supple. No tenderness. Nospinous process tenderness. Thoracic back: Normal. Lumbar back: Normal. Right knee: Normal. Left knee: Normal. Right lower leg: No edema. Left lower leg: No edema. Lymphadenopathy: Cervical: No cervical adenopathy. Skin: General: Skin is warm and dry. Neurological: General: No focal deficit present. Mental Status: He is alert and oriented to person, place, and time. Mental status is at baseline. Sensory: Sensation is intact. Motor: Motor function is intact. Psychiatric: Attention and Perception: Attention and perception normal. Mood and Affect: Mood normal. Speech: Speech normal. Behavior: Behavior normal. Thought Content: Thought content normal. Judgment: Judgment normal. Data Reviewed: Most recent labs ASSESSMENT/PLAN: 1. Type 2 diabetes mellitus with diabetic neuropathy, without long-term current use of insulin (HCC) - ICD9: 250.60, 357.2, ICD10: E11.40 (primary diagnosis) - Controlled - Continue current medications - HEMOGLOBIN A1C (POC) 2. Mixed hyperlipidemia - ICD9: 272.2, ICD10: E78.2 3. Obesity, Class I, BMI 30-34.9 - ICD9: 278.00, ICD10: E66.9 4. Stage 3b chronic kidney disease (HCC) - ICD9: 585.3, ICD10: N18.32 - Managed by Nephrology Return in about 6 months (around 05/15/2023). Attestation: Scribe Statement: I Riya Miranda am scribing for, and in the presence of, Eric Nicolas DO November 13, 2022 1:31 PM. Physician Statement: I, Eric Nicolas DO, personally performed the services described in the documentation, as scribed by Riya Miranda in my presence, and it is both accurate and complete November 13, 2022 1:44 PM. documented in this encounterWhite Hospital04-25-2023 Miscellaneous Notes* Telephone Encounter - Damir Jeffrey LPN - 09/19/2022 9:46 AM EDT Pharmacy faxed requesting the following refill Refill(s) Requested: Requested Prescriptions Pending Prescriptions Disp Refills glimepiride (AMARYL) 1 mg tablet [Pharmacy Med Name: GLIMEPIRIDE TAB 1MG] 90 tablet 3 Sig: TAKE 1 TABLET BY MOUTH ONCE A DAY WITH DINNER ALLERGIES Allergen Reactions [facility]ives Covid-19 Vacc,Mrna(* Intolerance, Myalgia Numbness in hand and pain [facility] (home) [phone] (cell) Last Office Visit Date: 04/24/2022 Last Distance Health Visit: Visit date not found Future Appointment: 10/19/2022 The patients preferred pharmacy has been captured for this encounter? yes Request is for script(s) to be escript to pharmacy. Damir Jeffrey LPN documented in this encounterWhite Hospital01-30-2023 Miscellaneous Notes* Telephone Encounter - Maribel Brooks LPN - 06/26/2022 9:16 AM EST Rx mail pharmacy faxed requesting the following refill Refill(s) Requested: Requested Prescriptions Pending Prescriptions Disp Refills metFORMIN (GLUCOPHAGE) 1,000 mg tablet 90 tablet 3 Sig: Take 1 tablet by mouth daily with breakfast. amLODIPine (NORVASC) 5 mg tablet 90 tablet 3 Sig: Take 1 tablet by mouth once daily. levothyroxine (SYNTHROID) 100 mcg tablet 90 tablet 3 Sig: Take 1 tablet by mouth once daily. gabapentin (NEURONTIN) 300 mg capsule 360 capsule 1 Sig: TAKE 1 CAPSULE IN THE MORNING , 1 CAPSULE AT LUNCH , AND 2 CAPSULES BY MOUTH IN THE EVENING metoprolol succinate ER (TOPROL XL) 100 mg 90 tablet 3 Sig: Take 1 tablet by mouth once daily. ALLERGIES Allergen Reactions Bee [employer]en Hives Covid-19 Vacc,Mrna(* Intolerance, Myalgia Numbness in hand and pain [facility] (home) [phone] (cell) Last Office Visit Date: 04/24/2022 Last [facility] Visit: Visit date not found Future Appointment: 10/19/2022 The patients preferred pharmacy has been captured for this encounter? yes Request is for script(s) to be escript to mail order [facility]. Maribel Brooks LPN documented in this encounterWhite Hospital12-05-2022 Miscellaneous Notes* Telephone Encounter - Maribel Brooks LPN - 05/01/2022 3:04 PM EST Patient advised. States he has not scheduled with a utility [employer] yet. Advised him to call and schedule. He said there is no [facility] one around. He will call [facility]. Wants to know if [facility] will have access to results. Advised we would be happy to fax results over if has a fax number. Patientsaid ok and was just confused. Offered patient an appointment if had further and declined at this time. * Telephone Encounter - Maribel Brooks LPN - 05/01/2022 2:58 PM EST ----- Message from Eric Nicolas DO sent at 05/01/2022 1:51 PM EST ----- Renal us 6 mo ordered documented in this encounterWhite Hospital12-02-2022 History of Present illness Narrative* NAS WinterR) - 04/28/2022 11:00 AM EST Radiology Service Progress Note PATIENT NAME: Jorge Salamanca DATE OF SERVICE: April 28, 2022 TIME: 11:21 AM PATIENT IDENTITY VERIFICATION COMPLETED USING TWO (2) IDENTIFIERS: Name and Date of confirmedby patient verbally. FALL SCREENING: Has the patient had 2 falls in the last year or 1 fall with injury or currently using an Ambulatory Assistive Device (Walker, Cane, Wheelchair, Crutches, etc.)? No PATIENT GENDER DATA: Male PATIENT RELEVANT IMPLANT DATA REVIEWED: Not Applicable RADIOLOGY DEPARTMENT: Ultrasound PERIPHERAL IV DATA: Not applicable SIGNED BY: RT Maggy(R) April 28, 2022 11:21 AM documented in this encounterWhite Hospital12-01-2022 Miscellaneous Notes* Telephone Encounter - Eric Nicolas DO - 04/27/2022 3:44 PM EST Stop meloxicam. No nsaids. Neph referral made * Telephone Encounter - Maribel Brooks LPN - 04/27/2022 11:48 AM EST Spoke with patient and he said he is not aware of kidney disease. He also states he has never seen a utility [employer]. He will schedule the ultrasound in the meantime. Anything further? Please advise * Telephone Encounter - Maribel Brooks LPN - 04/27/2022 11:44 AM EST ----- Message from Eric Nicolas DO sent at 04/27/2022 11:22 AM EST ----- Ckd pt aware. Does he see nephro? [id number] made renal us written. documented in this encounterWhite Hospital12-01-2022 Miscellaneous Notes* Telephone Encounter - Joanie Villarreal - 04/27/2022 11:45 AM EST Confirmation number: [id number] documented in this encounterWhite Hospital11-28-2022 History of Present illness Narrative* Eric Nicolas DO - 04/24/2022 9:22 AM EST Images from the original note were not included. [facility] Eric Nicolas, DO [address] [place] [address] Date of Evaluation: 04/24/2022 Patient Name: Jorge Salamanca : 1945 Chief Complaint: Patient presents with: Diabetes: 6 month check up Nursing Intake: There are no exam notes on file for this visit. Subjective Mr. Salamanca is a 77 year old male who presents with the following complaint(s): The history is provided by the patient. No workforce planner was used. Diabetes He presents for his follow-up diabetic visit. He has type 2 diabetes mellitus. Pertinent negatives for hypoglycemia include no dizziness, headaches or nervousness/anxiousness. Pertinent negatives fordiabetes include no chest pain, no fatigue and no weakness. His weight is stable. He is following agenerally unhealthy diet. When asked about meal planning, he reported none. Hypertension This is a chronic problem. The current episode started more than 1 year ago. Pertinent negatives include no chest pain, headaches, palpitations or shortness of breath. Hypercholesterolemia This is a chronic problem. The current episode started more than 1 year ago. Pertinent negatives include no chest pain or shortness of breath. Review of Systems Constitutional: Negative for fatigue and unexpected weight change. HENT: Negative for nosebleeds. Eyes: Negative for redness and visual disturbance. Respiratory: Negative for apnea, cough and shortness of breath. Cardiovascular: Negative for chest pain, palpitations and leg swelling. Genitourinary: Negative for hematuria. Neurological: Negative for dizziness, weakness, light-headedness, numbness and headaches. Hematological: Does not bruise/bleed easily. Psychiatric/Behavioral: The patient is not nervous/anxious. PAST MEDICAL HISTORY Diagnosis Date Arthritis Backache Benign essential hypertension Diarrhea Hypothyroidism Idiopathic peripheral autonomic neuropathy Impotence of organic origin Malaise and fatigue Migraine with aura Mixed hyperlipidemia Obesity Pain in joint involving ankle and foot Type 2 diabetes mellitus without complication (HCC) History reviewed. No pertinent surgical history. History reviewed. No pertinent family history. Social History Tobacco Use Smoking status: Former Types: Cigarettes Quit date: 05/19/1975 Years since quittin.9 Smokeless tobacco: Never Vaping Use Vaping Use: Never used Substance Use Topics Alcohol use: Yes Comment: seldom Drug use: Never Current Outpatient Medications Medication Sig Dispense Refill blood sugar diagnostic (ONETOUCH ULTRA TEST) test strip Pt to check blood sugar three times daily 100 Strip 3 glimepiride (AMARYL) 1 mg tablet Take 1 tablet by mouth daily with dinner. 90 tablet 3 gabapentin (NEURONTIN) 300 mg capsule TAKE 1 CAPSULE IN THE MORNING , 1 CAPSULE AT LUNCH , AND 2 CAPSULES BY MOUTH IN THE EVENING 360 capsule 1 metoprolol succinate ER (TOPROL XL) 100 mg Take 1 tablet by mouth once daily. 90 tablet 3 amLODIPine (NORVASC) 5 mg tablet Take 1 tablet by mouth once daily. 90 tablet 3 levothyroxine (SYNTHROID) 100 mcg tablet Take 1 tablet by mouth once daily. 90 tablet 3 metFORMIN (GLUCOPHAGE) 1,000 mg tablet Take 1 tablet by mouth daily with breakfast. (Patient takingdifferently: Take 1,000 mg by mouth daily with breakfast. 1/2 tab in the am THEN 1/2 tab in the pm)90 tablet 3 aspirin, enteric coated (ASPIRIN, ENTERIC COATED) 81 mg EC tablet Take 81 mg by mouth. omega 3,6,9 combination no.7 92 mg (43 mg-22 [id number]) chew Take by mouth. cholecalciferol (VITAMIN D3) 5,000 unit tab Take 5,000 Units by mouth once daily. pyridoxine, vitamin B6, (VITAMIN B6) 100 mg tablet Take 100 mg by mouth once daily. cyanocobalamin (VITAMIN B-12) 100 mcg tab Take 50 mcg by mouth. blood sugar diagnostic (ONETOUCH ULTRA TEST STRIP) test strip OneTouch Ultra Test strips Take 1 strip 4 times a day by miscell. route for 90 days. ubidecarenone Q-10 (COENZYME Q-10) 10 mg cap Take 100 mg by mouth once daily. meloxicam (MOBIC) 15 mg tablet No current facility-administered medications for this visit. I have confirmed and edited as necessary the past medical, family and social histories, HPI, and ROS obtained by others. Objective BP 130/70 Pulse 61 Ht 5' 6 (1.68m) Wt 186 lb (84.4kg) SpO2 98% BMI 30.04 kg/(m^2). Physical Exam Vitals and nursing note reviewed. Constitutional: General: He is not in acute distress. Appearance: Normal appearance. He is well-developed. He is not ill-appearing. HENT: Head: Normocephalic. Right Ear: Tympanic membrane, ear canal and external ear normal. There is no impacted cerumen. Left Ear: Tympanic membrane, ear canal and external ear normal. There is no impacted cerumen. Nose: Nose normal. Mouth/Throat: Mouth: Mucous membranes are moist. Pharynx: Oropharynx is clear. Uvula midline. No oropharyngeal exudate or posterior oropharyngeal erythema. Eyes: General: Lids are normal. Vision grossly intact. Gaze aligned appropriately. No scleral icterus. Right eye: No discharge. Left eye: No discharge. Extraocular Movements: Extraocular movements intact. Conjunctiva/sclera: Conjunctivae normal. Pupils: Pupils are equal, round, and reactive to light. Neck: Thyroid: No thyroid mass, thyromegaly or thyroid tenderness. Vascular: No carotid bruit. Trachea: Trachea and phonation normal. Cardiovascular: Rate and Rhythm: Normal rate and regular rhythm. Pulses: Normal pulses. Heart sounds: Normal heart sounds. Pulmonary: Effort: Pulmonary effort is normal. Breath sounds: Normal breath sounds. Abdominal: General: Abdomen is flat. Bowel sounds are normal. Palpations: Abdomen is soft. Musculoskeletal: General: Normal range of motion. Right shoulder: Normal. Left shoulder: Normal. Cervical back: Normal, full passive range of motion without pain and neck supple. No tenderness. Nospinous process tenderness. Thoracic back: Normal. Lumbar back: Normal. Right knee: Normal. Left knee: Normal. Right lower leg: No edema. Left lower leg: No edema. Lymphadenopathy: Cervical: No cervical adenopathy. Skin: General: Skin is warm and dry. Neurological: General: No focal deficit present. Mental Status: He is alert and oriented to person, place, and time. Mental status is at baseline. Sensory: Sensation is intact. Motor: Motor function is intact. Psychiatric: Attention and Perception: Attention and perception normal. Mood and Affect: Mood normal. Speech: Speech normal. Behavior: Behavior normal. Thought Content: Thought content normal. Judgment: Judgment normal. Data Reviewed: No new labs ASSESSMENT/PLAN: 1. Type 2 diabetes mellitus with diabetic neuropathy, without long-term current use of insulin (HCC) - ICD9: 250.60, 357.2, ICD10: E11.40 (primary diagnosis) -Control to be determined with A1C today - HGB A1C 2. Benign essential hypertension - ICD9: 401.1, ICD10: I10 - good control - Continue current medication(s) - Recommended regular aerobic exercise. - Recommend home blood pressure monitoring, to bring results in on next visit - Goal of BP <130/80 3. Mixed hyperlipidemia - ICD9: 272.2, ICD10: E78.2 - Check fasting lipid panel and ALT. - LIPID PANEL BASIC 4. Screening for malignant neoplasm of prostate - ICD9: V76.44, ICD10: Z12.5 - PSA/PROSTSPECAG SCRN Eric Nicolas DO Return in about 6 months (around 10/22/2022) for Blood pressure check, medication follow up, a1c. Attestation: Scribe Statement: Alessandra Miranda am scribing for, and in the presence of, Eric Nicolas DO April 24, 2022 9:54 AM. Physician Statement: I, Eric Nicolas DO, personally performed the services described in the documentation, as scribed by Riya Miranda in my presence, and it is both accurate and complete April 24, 2022 9:56 AM. documented in this encounterWhite Hospital07-01-2022 Miscellaneous Notes* Telephone Encounter - Jenna Jarquinnaeem - 11/25/2021 4:26 PM EDT This encounter was opened in error. @[email or web address]@ documented in this encounterWhite Hospital03-01-2022 Miscellaneous Notes* Telephone Encounter - Ana Pedraza - 07/26/2021 2:13 PM EST When pt was here last he was supposed to get refills of his test strips for the One touch ultra. Please send these to [facility]. Ana Pedraza documented in this encounterWhite Hospital02-24-2022 History of Present illness Narrative* Eric Nicolas DO - 07/21/2021 11:23 AM EST Images from the original note were not included. [facility] [address] [place] [address] Date of Evaluation: 07/21/2021 Patient Name: Jorge Salamacna : 1945 Chief Complaint: Patient presents with: Diabetes: lab results Rx Refills: diabetic supplies - one touch strips Nursing Intake: There are no exam notes on file for this visit. Subjective Mr. Salamanca is a 76 year old male who presents with the following complaint(s): The history is provided by the patient. No workforce planner was used. Diabetes He presents for his follow-up diabetic visit. He has type 2 diabetes mellitus. Pertinent negatives for hypoglycemia include no dizziness, headaches or nervousness/anxiousness. Pertinent negatives fordiabetes include no chest pain, no fatigue and no weakness. His home blood glucose trend is increasing steadily. His overall blood glucose range is 130-140 mg/dl. Review of Systems Constitutional: Negative for fatigue and unexpected weight change. HENT: Negative for nosebleeds. Eyes: Negative for redness and visual disturbance. Respiratory: Negative for apnea, cough and shortness of breath. Cardiovascular: Negative for chest pain, palpitations and leg swelling. Genitourinary: Negative for hematuria. Neurological: Negative for dizziness, weakness, light-headedness, numbness and headaches. Hematological: Does not bruise/bleed easily. Psychiatric/Behavioral: The patient is not nervous/anxious. PAST MEDICAL HISTORY Diagnosis Date Arthritis Backache Benign essential hypertension Diarrhea Hypothyroidism Idiopathic peripheral autonomic neuropathy Impotence of organic origin Malaise and fatigue Migraine with aura Mixed hyperlipidemia Obesity Pain in joint involving ankle and foot Type 2 diabetes mellitus without complication (HCC) No past surgical history on file. No family history on file. Social History Tobacco Use Smoking status: Former Smoker Types: Cigarettes Quit date: 05/19/1975 Years since quittin.2 Smokeless tobacco: Never Used Vaping Use Vaping Use: Never used Substance Use Topics Alcohol use: Yes Comment: seldom Drug use: Never Current Medications gabapentin (NEURONTIN) 300 mg capsule TAKE 1 CAPSULE IN THE MORNING , 1 CAPSULE AT LUNCH , AND 2 CAPSULES BY MOUTH IN THE EVENING meloxicam (MOBIC) 15 mg tablet Take 1 tablet by mouth once daily. metoprolol succinate ER (TOPROL XL) 100 mg Take 1 tablet by mouth once daily. amLODIPine (NORVASC) 5 mg tablet Take 1 tablet by mouth once daily. levothyroxine (SYNTHROID) 100 mcg tablet Take 1 tablet by mouth once daily. aspirin, enteric coated (ASPIRIN, ENTERIC COATED) 81 mg EC tablet Take 81 mg by mouth. omega 3,6,9 combination no.7 92 mg (43 mg-22 [id number]) chew Take by mouth. cholecalciferol (VITAMIN D-3) 5,000 unit tab Take 5,000 Units by mouth once daily. pyridoxine, vitamin B6, (VITAMIN B-6) 100 mg tablet Take 100 mg by mouth once daily. cyanocobalamin (VITAMIN B-12) 100 mcg tab Take 50 mcg by mouth. blood sugar diagnostic (ONETOUCH ULTRA TEST STRIP) test strip OneTouch Ultra Test strips Take 1 strip 4 times a day by miscell. route for 90 days. ubidecarenone Q-10 (COENZYME Q-10) 10 mg cap Take 100 mg by mouth once daily. metFORMIN (GLUCOPHAGE) 1,000 mg tablet Take 1 tablet by mouth daily with breakfast. I have confirmed and edited as necessary the past medical, family and social histories, HPI, and ROS obtained by others. Objective BP 118/60 Pulse 57 Temp 97.2 Ht 5' 6 (1.68m) Wt 190 lb (86.2kg) SpO2 100% BMI 30.68 kg/(m^2). Physical Exam Vitals and nursing note reviewed. Constitutional: General: He is not in acute distress. Appearance: Normal appearance. He is well-developed. He is not ill-appearing. HENT: Head: Normocephalic. Right Ear: Tympanic membrane, ear canal and external ear normal. There is no impacted cerumen. Left Ear: Tympanic membrane, ear canal and external ear normal. There is no impacted cerumen. Nose: Nose normal. Mouth/Throat: Mouth: Mucous membranes are moist. Pharynx: Oropharynx is clear. Uvula midline. No oropharyngeal exudate or posterior oropharyngeal erythema. Eyes: General: Lids are normal. Vision grossly intact. Gaze aligned appropriately. No scleral icterus. Right eye: No discharge. Left eye: No discharge. Extraocular Movements: Extraocular movements intact. Conjunctiva/sclera: Conjunctivae normal. Pupils: Pupils are equal, round, and reactive to light. Neck: Thyroid: No thyroid mass, thyromegaly or thyroid tenderness. Vascular: No carotid bruit. Trachea: Trachea and phonation normal. Cardiovascular: Rate and Rhythm: Normal rate and regular rhythm. Pulses: Normal pulses. Heart sounds: Normal heart sounds. Pulmonary: Effort: Pulmonary effort is normal. Breath sounds: Normal breath sounds. Abdominal: General: Abdomen is flat. Bowel sounds are normal. Palpations: Abdomen is soft. Musculoskeletal: General: Normal range of motion. Right shoulder: Normal. Left shoulder: Normal. Cervical back: Normal, full passive range of motion without pain and neck supple. No tenderness. Nospinous process tenderness. Thoracic back: Normal. Lumbar back: Normal. Right knee: Normal. Left knee: Normal. Right lower leg: No edema. Left lower leg: No edema. Lymphadenopathy: Cervical: No cervical adenopathy. Skin: General: Skin is warm and dry. Neurological: General: No focal deficit present. Mental Status: He is alert and oriented to person, place, and time. Mental status is at baseline. Cranial Nerves: Cranial nerves are intact. Sensory: Sensation is intact. Motor: Motor function is intact. Psychiatric: Attention and Perception: Attention and perception normal. Mood and Affect: Mood normal. Speech: Speech normal. Behavior: Behavior normal. Thought Content: Thought content normal. Judgment: Judgment normal. Data Reviewed: No new labs ASSESSMENT/PLAN: 1. Type 2 diabetes mellitus with diabetic neuropathy, without long-term current use of insulin ([facility]) - ICD9: 250.60, 357.2, ICD10: E11.40 - Discontinue Glipizide - Start Amaryl - Check A1C in 3 months - GLIMEPIRIDE 1 MG TABLET Eric Nicolas DO Return in about 3 months (around 10/18/2021) for a1c. Attestation: Scribe Statement: Alessandra Miranda am scribing for, and in the presence of, Eric Nicolas DO July 21, 2021 11:38 AM.Physician Statement: I, Eric Nicolas DO, personally performed the services described in the documentation, as scribed by Riya Starks in my presence, and it is both accurate and complete July 21, 2021 11:44 AM. documented in this encounterWhite Hospital02-21-2022 Miscellaneous Notes* Telephone Encounter - Ana Pedraza - 07/18/2021 3:24 PM EST Pt has been scheduled Ana Pedraza * Telephone Encounter - Maribel Brooks LPN - 07/18/2021 11:29 AM EST Patient advised. Transferred phone call to front end web developer to schedule. Please schedule patient for an appointment to review lab results * Telephone Encounter - Maribel Brooks LPN - 07/18/2021 11:28 AM EST ----- Message from Eric Nicolas DO sent at 07/18/2021 8:34 AM EST ----- A1c up. Needs seen for med addition documented in this encounterWhite Hospital02-17-2022 Miscellaneous Notes* Telephone Encounter - Maribel Brooks LPN - 07/14/2021 2:48 PM EST Pharmacy faxed requesting the following refill Refill(s) Requested: Pending Prescriptions Disp Refills GABAPENTIN 300 MG CAPSULE 360 capsule 1 Sig: TAKE 1 CAPSULE IN THE MORNING , 1 CAPSULE AT LUNCH , AND 2 CAPSULES BY MOUTH IN THE EVENING DAVID: No ALLERGIES Allergen Reactions Bee Pollen Hives Venom-Honey Bee Hives (home) [phone] (cell) Last Office Visit Date: 07/14/2021 Last [facility] Visit: Visit date not found Future Appointment: 01/12/2022 The patients preferred pharmacy has been captured for this encounter? yes Request is for script(s) to be escript to pharmacy. Maribel Brooks LPN documented in this encounterWhite Hospital02-17-2022 History of Present illness Narrative* Eric Nicolas DO - 07/14/2021 9:40 AM EST Images from the original note were not included. [facility] DO [address] [place] [address] Date of Evaluation: 07/14/2021 Patient Name: Jorge Salamanca : 1945 Chief Complaint: Patient presents with: Diabetes Physical Therapy: update from [facility]: unable to get d/t denial by insurance Nursing Intake: There are no exam notes on file for this visit. Subjective Mr. Salamanca is a 76 year old male who presents with the following complaint(s): The history is provided by the patient. No workforce planner was used. Diabetes He presents for his follow-up diabetic visit. He has type 2 diabetes mellitus. Pertinent negatives for hypoglycemia include no dizziness, headaches or nervousness/anxiousness. Pertinent negatives fordiabetes include no chest pain, no fatigue and no weakness. His weight is stable. He is following agenerally unhealthy diet. His overall blood glucose range is 130-140 mg/dl. Neck Pain This is a recurrent problem. The current episode started more than 1 month ago. The problem occurs intermittently. The problem has been gradually improving (Since PT, patient wants to continue PT is possible ). Pertinent negatives include no chest pain, headaches, numbness or weakness. Review of Systems Constitutional: Negative for fatigue and unexpected weight change. HENT: Negative for nosebleeds. Eyes: Negative for redness and visual disturbance. Respiratory: Negative for apnea, cough and shortness of breath. Cardiovascular: Negative for chest pain, palpitations and leg swelling. Genitourinary: Negative for hematuria. Musculoskeletal: Positive for neck pain. Neurological: Negative for dizziness, weakness, light-headedness, numbness and headaches. Hematological: Does not bruise/bleed easily. Psychiatric/Behavioral: The patient is not nervous/anxious. PAST MEDICAL HISTORY Diagnosis Date Arthritis Backache Benign essential hypertension Diarrhea Hypothyroidism Idiopathic peripheral autonomic neuropathy Impotence of organic origin Malaise and fatigue Migraine with aura Mixed hyperlipidemia Obesity Pain in joint involving ankle and foot Type 2 diabetes mellitus without complication (HCC) History reviewed. No pertinent surgical history. History reviewed. No pertinent family history. Social History Tobacco Use Smoking status: Former Smoker Types: Cigarettes Quit date: 05/19/1975 Years since quittin.1 Smokeless tobacco: Never Used Vaping Use Vaping Use: Never used Substance Use Topics Alcohol use: Yes Comment: seldom Drug use: Never Current Medications meloxicam (MOBIC) 15 mg tablet Take 1 tablet by mouth once daily. metoprolol succinate ER (TOPROL XL) 100 mg Take 1 tablet by mouth once daily. amLODIPine (NORVASC) 5 mg tablet Take 1 tablet by mouth once daily. levothyroxine (SYNTHROID) 100 mcg tablet Take 1 tablet by mouth once daily. metFORMIN (GLUCOPHAGE) 1,000 mg tablet Take 1 tablet by mouth daily with breakfast. aspirin, enteric coated (ASPIRIN, ENTERIC COATED) 81 mg EC tablet Take 81 mg by mouth. omega 3,6,9 combination no.7 92 mg (43 mg-22 [id number]) chew Take by mouth. cholecalciferol (VITAMIN D-3) 5,000 unit tab Take 5,000 Units by mouth once daily. pyridoxine, vitamin B6, (VITAMIN B-6) 100 mg tablet Take 100 mg by mouth once daily. gabapentin (NEURONTIN) 300 mg capsule TAKE 1 CAPSULE IN THE MORNING , ONE CAPSULE AT LUNCH , AND 2 CAPSULES BY MOUTH IN THE EVENING cyanocobalamin (VITAMIN B-12) 100 mcg tab Take 50 mcg by mouth. blood sugar diagnostic (ONETOUCH ULTRA TEST STRIP) test strip OneTouch Ultra Test strips Take 1 strip 4 times a day by miscell. route for 90 days. ubidecarenone Q-10 (COENZYME Q-10) 10 mg cap Take 100 mg by mouth once daily. predniSONE (DELTASONE) 10 mg tablet Take 3 tablets by mouth for 3 days, then take 2 tablets by mouth for 3 days, then take 1 tablet by mouth for 3 days. MEN'S MULTI-VITAMIN ORAL Take by mouth. Ibuprofen 200 mg cap Take by mouth every 6 hours as needed. cyclobenzaprine (FLEXERIL) 10 mg tablet cyclobenzaprine 10 mg tablet TAKE 1 TABLET BY MOUTH THREE TIMES A DAY NEEDED NOT COVERED glipiZIDE (GLUCOTROL XL) 2.5 mg 24 hr tablet Take 1 tablet by mouth once daily. I have confirmed and edited as necessary the past medical, family and social histories, HPI, and ROS obtained by others. Objective BP 110/66 Pulse 63 Temp 97.4 Ht 5' 6 (1.68m) Wt 190 lb (86.2kg) SpO2 98% BMI 30.68 kg/(m^2). Physical Exam Vitals and nursing note reviewed. Constitutional: General: He is not in acute distress. Appearance: Normal appearance. He is well-developed. He is not ill-appearing. HENT: Head: Normocephalic. Right Ear: Tympanic membrane, ear canal and external ear normal. There is no impacted cerumen. Left Ear: Tympanic membrane, ear canal and external ear normal. There is no impacted cerumen. Nose: Nose normal. Mouth/Throat: Mouth: Mucous membranes are moist. Pharynx: Oropharynx is clear. Uvula midline. No oropharyngeal exudate or posterior oropharyngeal erythema. Eyes: General: Lids are normal. Vision grossly intact. Gaze aligned appropriately. No scleral icterus. Right eye: No discharge. Left eye: No discharge. Extraocular Movements: Extraocular movements intact. Conjunctiva/sclera: Conjunctivae normal. Pupils: Pupils are equal, round, and reactive to light. Neck: Thyroid: No thyroid mass, thyromegaly or thyroid tenderness. Vascular: No carotid bruit. Trachea: Trachea and phonation normal. Cardiovascular: Rate and Rhythm: Normal rate and regular rhythm. Pulses: Normal pulses. Heart sounds: Normal heart sounds. Pulmonary: Effort: Pulmonary effort is normal. Breath sounds: Normal breath sounds. Abdominal: General: Abdomen is flat. Bowel sounds are normal. Palpations: Abdomen is soft. Musculoskeletal: General: Normal range of motion. Right shoulder: Normal. Left shoulder: Normal. Cervical back: Normal, full passive range of motion without pain and neck supple. No tenderness. Nospinous process tenderness. Thoracic back: Normal. Lumbar back: Normal. Right knee: Normal. Left knee: Normal. Right lower leg: No edema. Left lower leg: No edema. Lymphadenopathy: Cervical: No cervical adenopathy. Skin: General: Skin is warm and dry. Neurological: General: No focal deficit present. Mental Status: He is alert and oriented to person, place, and time. Mental status is at baseline. Cranial Nerves: Cranial nerves are intact. Sensory: Sensation is intact. Motor: Motor function is intact. Psychiatric: Attention and Perception: Attention and perception normal. Mood and Affect: Mood normal. Speech: Speech normal. Behavior: Behavior normal. Thought Content: Thought content normal. Judgment: Judgment normal. Data Reviewed: No new labs ASSESSMENT/PLAN: 1. Type 2 diabetes mellitus with diabetic neuropathy, without long-term current use of insulin (HCC) - ICD9: 250.60, 357.2, ICD10: E11.40 (primary diagnosis) - Control to be determined with A1C today - ALBUMIN/CREAT RATIO RND UR - HGB A1C 2. Cervical radiculopathy - ICD9: 723.4, ICD10: M54.12 - Continue PT - CONSULT TO PHYSICAL THERAPY 3. Carpal tunnel syndrome, right - ICD9: 354.0, ICD10: G56.01 4. Special screening examination for viral disease - ICD9: V73.99, ICD10: Z11.59 - HEP C AB IA W/CONF SCRN Eric Nicolas, Feet:Shoes and socks removed and sensitive to 10 gm monofilament No follow-ups on file. Attestation: Scribe Statement: Alessandra Miranda am scribing for, and in the presence of, Eric Nicolas DO July 14, 2021 9:50 AM. Physician Statement: I, Eric Nicolas DO, personally performed the services described in the documentation, as scribed by Riya Starks in my presence, and it is both accurate and complete July 14, 2021 9:56 AM. documented in this encounterWhite Hospital01-18-2022 Miscellaneous Notes* Telephone Encounter - Joanie Villarreal - 06/14/2021 10:48 AM EST Jie from [facility] called in checking in on the referral request. I faxed the referral to [phone] after we spoke. * Telephone Encounter - Maribel Brooks LPN - 06/08/2021 10:54 AM EST Marlene from [facility] called and left a voicemail saying they need a referral before they can do an eval. Please sign order and it needs faxed to [phone]. Any questions call Marlene at [phone] * Telephone Encounter - Jenna Lopez - 06/06/2021 5:10 PM EST Patient called and left voicemail on nurse line. Stated he was returning a call to Ana, brayan pittss referral to physical therapy. Stated he has appointment set up for this Sunday. PT orders pended. * Telephone Encounter - Ana Pedraza - 06/06/2021 10:55 AM EST Pt's MRI has been denied. Insurance wants 6 weeks of tried and failed physical therapy. Pt will need an order. Ana Pedraza documented in this encounterWhite Hospital01-12-2022 Miscellaneous Notes* Telephone Encounter - Maribel Brooks LPN - 06/08/2021 10:35 AM EST Spoke with patient and he states he has a pinched nerve in back. Spine clinic wont see until has MRI. MRI was denied and has to complete physical therapy first. * Telephone Encounter - Eric Nicolas DO - 06/06/2021 3:34 PM EST y * Telephone Encounter - Ana Pedraza - 06/03/2021 1:15 PM EST Pt is requesting a refill of Hydrocodone 7.5/325mg Please send to [facility] documented in this encounterWhite Hospital01-07-2022 Miscellaneous Notes* Telephone Encounter - Ana Pedraza - 06/03/2021 10:31 AM EST This encounter was opened in error. @[email or web address]@ documented in this [facility]12-30-2021 Miscellaneous Notes* Telephone Encounter - Maribel Brooks LPN - 05/26/2021 1:26 PM EST Rx mail pharmacy faxed requesting the following refill Refill(s) Requested: Pending Prescriptions Disp Refills MELOXICAM 15 MG TABLET 90 tablet 3 Sig: Take 1 tablet by mouth once daily. DAVID: No METOPROLOL SUCCINATE ER 100 MG TABLET,EXTENDED RELEASE 24 HR 90 tablet 3 Sig: Take 1 tablet by mouth once daily. DAVID: No AMLODIPINE 5 MG TABLET 90 tablet 3 Sig: Take 1 tablet by mouth once daily. DAVID: No LEVOTHYROXINE 100 MCG TABLET 90 tablet 3 Sig: Take 1 tablet by mouth once daily. DAVID: No METFORMIN 1,000 MG TABLET 90 tablet 3 Sig: Take 1 tablet by mouth daily with breakfast. DAVID: No ALLERGIES Allergen Reactions Bee Pollen Hives Venom-Honey Bee Hives (home) [phone] (cell) Last Office Visit Date: 05/09/2021 Last [facility] Visit: Visit date not found Future Appointment: 06/30/2021 The patients preferred pharmacy has been captured for this encounter? yes Request is for script(s) to be escript to mail order [facility] Maribel Brooks LPN documented in this encounterWhite Hospital12-13-2021 History of Present illness Narrative* Eric Nicolas DO - 05/09/2021 3:15 PM EST Images from the original note were not included. [facility] DO [address] [place] [address] Date of Evaluation: 05/09/2021 Patient Name: Jorge Salamanca : 1945 Chief Complaint: Patient presents with: Numbness: right hand Pain: right elbow Nursing Intake: There are no exam notes on file for this visit. Subjective Mr. Salamanca is a 76 year old male who presents with the following complaint(s): The history is provided by the patient. No workforce planner was used. Neck Pain This is a recurrent problem. The current episode started 1 to 4 weeks ago. The problem occurs daily. The problem has been unchanged (improved while on prednisone). The pain is present in the right side. The pain is at a severity of 4/10 (after taking pain medication. ). The pain is same all the time. Pertinent negatives include no chest pain, headaches, numbness or weakness. Review of Systems Constitutional: Negative for fatigue and unexpected weight change. HENT: Negative for nosebleeds. Eyes: Negative for redness and visual disturbance. Respiratory: Negative for apnea, cough and shortness of breath. Cardiovascular: Negative for chest pain, palpitations and leg swelling. Genitourinary: Negative for hematuria. Musculoskeletal: Positive for neck pain. Neurological: Negative for dizziness, weakness, light-headedness, numbness and headaches. Hematological: Does not bruise/bleed easily. Psychiatric/Behavioral: The patient is not nervous/anxious. PAST MEDICAL HISTORY Diagnosis Date Arthritis Backache Benign essential hypertension Diarrhea Hypothyroidism Idiopathic peripheral autonomic neuropathy Impotence of organic origin Malaise and fatigue Migraine with aura Mixed hyperlipidemia Obesity Pain in joint involving ankle and foot Type 2 diabetes mellitus without complication (HCC) History reviewed. No pertinent surgical history. History reviewed. No pertinent family history. Social History Tobacco Use Smoking status: Former Smoker Types: Cigarettes Quit date: 05/19/1975 Years since quittin.0 Smokeless tobacco: Never Used Vaping Use Vaping Use: Never used Substance Use Topics Alcohol use: Yes Comment: seldom Drug use: Never Current Medications aspirin, enteric coated (ASPIRIN, ENTERIC COATED) 81 mg EC tablet Take 81 mg by mouth. meloxicam (MOBIC) 15 mg tablet Take 15 mg by mouth once daily. omega 3,6,9 combination no.7 92 mg (43 mg-22 [id number]) chew Take by mouth. cholecalciferol (VITAMIN D-3) 5,000 unit tab Take 5,000 Units by mouth once daily. pyridoxine, vitamin B6, (VITAMIN B-6) 100 mg tablet Take 100 mg by mouth once daily. gabapentin (NEURONTIN) 300 mg capsule TAKE 1 CAPSULE IN THE MORNING , ONE CAPSULE AT LUNCH , AND 2 CAPSULES BY MOUTH IN THE EVENING cyanocobalamin (VITAMIN B-12) 100 mcg tab Take 50 mcg by mouth. blood sugar diagnostic (ONETOUCH ULTRA TEST STRIP) test strip OneTouch Ultra Test strips Take 1 strip 4 times a day by miscell. route for 90 days. ubidecarenone Q-10 (COENZYME Q-10) 10 mg cap Take 100 mg by mouth once daily. amLODIPine (NORVASC) 5 mg tablet Take 1 tablet by mouth once daily. metoprolol succinate ER (TOPROL XL) 100 mg Take 1 tablet by mouth once daily. levothyroxine (SYNTHROID) 100 mcg tablet Take 1 tablet by mouth once daily. metFORMIN (GLUCOPHAGE) 1,000 mg tablet Take 1 tablet by mouth daily with breakfast. HYDROcodone-Acetaminophen (NORCO) 7.5-325 mg per tablet Take 1 tablet by mouth every 6 hours as needed for pain for up to 7 days. predniSONE (DELTASONE) 10 mg tablet Take 3 tablets by mouth for 3 days, then take 2 tablets by mouth for 3 days, then take 1 tablet by mouth for 3 days. MEN'S MULTI-VITAMIN ORAL Take by mouth. Ibuprofen 200 mg cap Take by mouth every 6 hours as needed. cyclobenzaprine (FLEXERIL) 10 mg tablet cyclobenzaprine 10 mg tablet TAKE 1 TABLET BY MOUTH THREE TIMES A DAY NEEDED NOT COVERED glipiZIDE (GLUCOTROL XL) 2.5 mg 24 hr tablet Take 1 tablet by mouth once daily. I have confirmed and edited as necessary the past medical, family and social histories, HPI, and ROS obtained by others. Objective BP 130/68 Pulse 61 Temp 96.8 Ht 5' 6 (1.68m) Wt 193 lb (87.5kg) SpO2 97% BMI 31.17 kg/(m^2). Physical Exam Vitals and nursing note reviewed. Constitutional: General: He is not in acute distress. Appearance: Normal appearance. He is well-developed. He is not ill-appearing. HENT: Head: Normocephalic. Right Ear: Tympanic membrane, ear canal and external ear normal. There is no impacted cerumen. Left Ear: Tympanic membrane, ear canal and external ear normal. There is no impacted cerumen. Nose: Nose normal. Mouth/Throat: Mouth: Mucous membranes are moist. Pharynx: Oropharynx is clear. Uvula midline. No oropharyngeal exudate or posterior oropharyngeal erythema. Eyes: General: Lids are normal. Vision grossly intact. Gaze aligned appropriately. No scleral icterus. Right eye: No discharge. Left eye: No discharge. Extraocular Movements: Extraocular movements intact. Conjunctiva/sclera: Conjunctivae normal. Pupils: Pupils are equal, round, and reactive to light. Neck: Thyroid: No thyroid mass, thyromegaly or thyroid tenderness. Vascular: No carotid bruit. Trachea: Trachea and phonation normal. Cardiovascular: Rate and Rhythm: Normal rate and regular rhythm. Pulses: Normal pulses. Heart sounds: Normal heart sounds. Pulmonary: Effort: Pulmonary effort is normal. Breath sounds: Normal breath sounds. Abdominal: General: Abdomen is flat. Bowel sounds are normal. Palpations: Abdomen is soft. Musculoskeletal: General: Normal range of motion. Right shoulder: Normal. Left shoulder: Normal. Cervical back: Normal, full passive range of motion without pain and neck supple. No tenderness. Nospinous process tenderness. Thoracic back: Normal. Lumbar back: Normal. Right knee: Normal. Left knee: Normal. Right lower leg: No edema. Left lower leg: No edema. Lymphadenopathy: Cervical: No cervical adenopathy. Skin: General: Skin is warm and dry. Neurological: General: No focal deficit present. Mental Status: He is alert and oriented to person, place, and time. Mental status is at baseline. Cranial Nerves: Cranial nerves are intact. Sensory: Sensation is intact. Motor: Motor function is intact. Psychiatric: Attention and Perception: Attention and perception normal. Mood and Affect: Mood normal. Speech: Speech normal. Behavior: Behavior normal. Thought Content: Thought content normal. Judgment: Judgment normal. Data Reviewed: No new labs ASSESSMENT/PLAN: 1. Cervical radiculopathy - ICD9: 723.4, ICD10: M54.12 - Continue Hydrocodone as needed - Advised to seek Further evaluation with Spine clinic - Obtain MRI - [facility] - MRI CERVICAL SPINE WO IVCON - HYDROCODONE 7.5 MG-ACETAMINOPHEN 325 MG TABLET Return if symptoms worsen or fail to improve. Attestation: Scribe Statement: Alessandra Miranda am scribing for, and in the presence of, Eric Nicolas DO May 09, 2021 3:33 PM. Physician Statement: I, Eric Nicolas DO, personally performed the services described in the documentation, as scribed by Riya Starks in my presence, and it is both accurate and complete May 09, 2021 3:39 PM. documented in this encounterWhite Hospital11-29-2021 History of Present illness Narrative* Eric Nicolas DO - 04/25/2021 11:20 AM EST Images from the original note were not included. [facility] DO [address] [place] [address] Date of Evaluation: 04/25/2021 Patient Name: Jorge Salamanca : 1945 Chief Complaint: Patient presents with: Pain: right upper back, and down right arm, since 04/23/21, covid vaccine on 04/14/21 in right arm. Nursing Intake: There are no exam notes on file for this visit. Subjective Mr. Salamanca is a 76 year old male who presents with the following complaint(s): The history is provided by the patient. No workforce planner was used. Neck Pain This is a new problem. The current episode started in the past 7 days. The problem occurs daily. The problem has been unchanged. The pain is present in the right side. The quality of the pain is described as aching and shooting. The symptoms are aggravated by twisting and position. Pertinent negatives include no chest pain, headaches, numbness or weakness (right arm ). Treatments tried: Flexeril The treatment provided moderate relief. Review of Systems Constitutional: Negative for fatigue and unexpected weight change. HENT: Negative for nosebleeds. Eyes: Negative for redness and visual disturbance. Respiratory: Negative for apnea, cough and shortness of breath. Cardiovascular: Negative for chest pain, palpitations and leg swelling. Genitourinary: Negative for hematuria. Musculoskeletal: Positive for neck pain. Neurological: Negative for dizziness, weakness (right arm ), light-headedness, numbness and headaches. Hematological: Does not bruise/bleed easily. Psychiatric/Behavioral: The patient is not nervous/anxious. PAST MEDICAL HISTORY Diagnosis Date Arthritis Backache Benign essential hypertension Diarrhea Hypothyroidism Idiopathic peripheral autonomic neuropathy Impotence of organic origin Malaise and fatigue Migraine with aura Mixed hyperlipidemia Obesity Pain in joint involving ankle and foot Type 2 diabetes mellitus without complication (HCC) History reviewed. No pertinent surgical history. History reviewed. No pertinent family history. Social History Tobacco Use Smoking status: Former Smoker Types: Cigarettes Quit date: 05/19/1975 Years since quittin.9 Smokeless tobacco: Never Used Vaping Use Vaping Use: Never used Substance Use Topics Alcohol use: Yes Comment: seldom Drug use: Never Current Medications aspirin, enteric coated (ASPIRIN, ENTERIC COATED) 81 mg EC tablet Take 81 mg by mouth. meloxicam (MOBIC) 15 mg tablet Take 15 mg by mouth once daily. omega 3,6,9 combination no.7 92 mg (43 mg-22 [id number]) chew Take by mouth. cholecalciferol (VITAMIN D-3) 5,000 unit tab Take 5,000 Units by mouth once daily. pyridoxine, vitamin B6, (VITAMIN B-6) 100 mg tablet Take 100 mg by mouth once daily. MEN'S MULTI-VITAMIN ORAL Take by mouth. gabapentin (NEURONTIN) 300 mg capsule TAKE 1 CAPSULE IN THE MORNING , ONE CAPSULE AT LUNCH , AND 2 CAPSULES BY MOUTH IN THE EVENING cyclobenzaprine (FLEXERIL) 10 mg tablet cyclobenzaprine 10 mg tablet TAKE 1 TABLET BY MOUTH THREE TIMES A DAY NEEDED NOT COVERED cyanocobalamin (VITAMIN B-12) 100 mcg tab Take 50 mcg by mouth. blood sugar diagnostic (ONETOUCH ULTRA TEST STRIP) test strip OneTouch Ultra Test strips Take 1 strip 4 times a day by miscell. route for 90 days. ubidecarenone Q-10 (COENZYME Q-10) 10 mg cap Take 100 mg by mouth once daily. amLODIPine (NORVASC) 5 mg tablet Take 1 tablet by mouth once daily. metoprolol succinate ER (TOPROL XL) 100 mg Take 1 tablet by mouth once daily. levothyroxine (SYNTHROID) 100 mcg tablet Take 1 tablet by mouth once daily. metFORMIN (GLUCOPHAGE) 1,000 mg tablet Take 1 tablet by mouth daily with breakfast. Ibuprofen 200 mg cap Take by mouth every 6 hours as needed. glipiZIDE (GLUCOTROL XL) 2.5 mg 24 hr tablet Take 1 tablet by mouth once daily. I have confirmed and edited as necessary the past medical, family and social histories, HPI, and ROS obtained by others. Objective BP 124/82 Pulse 88 Temp 98.4 Ht 5' 6 (1.68m) Wt 190 lb (86.2kg) SpO2 98% BMI 30.68 kg/(m^2). Physical Exam Vitals and nursing note reviewed. Constitutional: General: He is not in acute distress. Appearance: Normal appearance. He is well-developed. He is not ill-appearing. HENT: Head: Normocephalic. Right Ear: Tympanic membrane, ear canal and external ear normal. There is no impacted cerumen. Left Ear: Tympanic membrane, ear canal and external ear normal. There is no impacted cerumen. Nose: Nose normal. Mouth/Throat: Mouth: Mucous membranes are moist. Pharynx: Oropharynx is clear. Uvula midline. No oropharyngeal exudate or posterior oropharyngeal erythema. Eyes: General: Lids are normal. Vision grossly intact. Gaze aligned appropriately. No scleral icterus. Right eye: No discharge. Left eye: No discharge. Extraocular Movements: Extraocular movements intact. Conjunctiva/sclera: Conjunctivae normal. Pupils: Pupils are equal, round, and reactive to light. Neck: Thyroid: No thyroid mass, thyromegaly or thyroid tenderness. Vascular: No carotid bruit. Trachea: Trachea and phonation normal. Cardiovascular: Rate and Rhythm: Normal rate and regular rhythm. Pulses: Normal pulses. Heart sounds: Normal heart sounds. Pulmonary: Effort: Pulmonary effort is normal. Breath sounds: Normal breath sounds. Abdominal: General: Abdomen is flat. Bowel sounds are normal. Palpations: Abdomen is soft. Musculoskeletal: General: Normal range of motion. Right shoulder: Normal. Left shoulder: Normal. Cervical back: Normal, full passive range of motion without pain and neck supple. No tenderness. Nospinous process tenderness. Thoracic back: Normal. Lumbar back: Normal. Right knee: Normal. Left knee: Normal. Right lower leg: No edema. Left lower leg: No edema. Lymphadenopathy: Cervical: No cervical adenopathy. Skin: General: Skin is warm and dry. Neurological: General: No focal deficit present. Mental Status: He is alert and oriented to person, place, and time. Mental status is at baseline. Cranial Nerves: Cranial nerves are intact. Sensory: Sensation is intact. Motor: Motor function is intact. Psychiatric: Attention and Perception: Attention and perception normal. Mood and Affect: Mood normal. Speech: Speech normal. Behavior: Behavior normal. Thought Content: Thought content normal. Judgment: Judgment normal. Data Reviewed: No new labs ASSESSMENT/PLAN: 1. Cervical radiculopathy - ICD9: 723.4, ICD10: M54.12 - Start Prednisone Taper - Start Hydrocodone as needed for pain. - PREDNISONE 10 MG TABLET - HYDROCODONE 7.5 MG-ACETAMINOPHEN 325 MG TABLET PDMP website checked and validated. All prescriptions have been APPROPRIATELY filled. No suspiciousactivity was identified. Return if symptoms worsen or fail to improve. Eric Nicolas DO Attestation: Scribe Statement: Alessandra Miranda am scribing for, and in the presence of, Eric Nicolas DO April 25, 2021 11:29 AM. Physician Statement: I, Eric Nicolas DO, personally performed the services described in the documentation, as scribed by Riya Starks in my presence, and it is both accurate and complete April 25, 2021 11:33 AM. documented [facility] History of Present illness Narrative* Eric Nicolas DO - 12/28/2020 10:32 AM EDT Images from the original note were not included. [facility] [place] Eric Nicolas DO [address] [place] [address] Date of Evaluation: 12/28/2020 Patient Name: Jorge Salamanca : 1945 Chief Complaint: Follow Up (A1C), Diabetes, and Hypertension Nursing Intake: There are no exam notes on file for this visit. Subjective Mr. Salamanca is a 75 year old male who presents with the following complaint(s): The history is provided by the patient. No workforce planner was used. Diabetes He presents for his follow-up diabetic visit. He has type 2 diabetes mellitus. His disease course has been stable. Pertinent negatives for hypoglycemia include no dizziness, headaches or nervousness/anxiousness. Pertinent negatives for diabetes include no blurred vision, no chest pain, no weakness and no weight loss. Home blood sugar record trend: Not monitoring Hypertension This is a chronic problem. The current episode started more than 1 year ago. Pertinent negatives include no blurred vision, chest pain, headaches, malaise/fatigue, orthopnea, palpitations, PND or shortness of breath. Identifiable causes of hypertension include a thyroid problem. Hypercholesterolemia This is a chronic problem. The current episode started more than 1 year ago. Pertinent negatives include no chest pain, focal weakness, myalgias or shortness of breath. Thyroid Problem Presents for follow-up visit. Patient reports no anxiety, palpitations or weight loss. The symptomshave been stable. Review of Systems Constitutional: Negative for malaise/fatigue and weight loss. HENT: Negative for nosebleeds. Eyes: Negative for blurred vision and double vision. Respiratory: Negative for cough and shortness of breath. Cardiovascular: Negative for chest pain, palpitations, orthopnea, claudication, leg swelling and PND. Gastrointestinal: Negative for abdominal pain. Genitourinary: Negative for hematuria. Musculoskeletal: Negative for joint pain and myalgias. Skin: Negative. Neurological: Negative for dizziness, tingling, sensory change, focal weakness, weakness and headaches. Endo/Heme/Allergies: Does not bruise/bleed easily. Psychiatric/Behavioral: Negative for depression. The patient is not nervous/anxious and does not have insomnia. PAST MEDICAL HISTORY Diagnosis Date Arthritis Backache Benign essential hypertension Diarrhea Hypothyroidism Idiopathic peripheral autonomic neuropathy Impotence of organic origin Malaise and fatigue Migraine with aura Mixed hyperlipidemia Obesity Pain in joint involving ankle and foot Type 2 diabetes mellitus without complication (HCC) History reviewed. No pertinent surgical history. History reviewed. No pertinent family history. Social History Tobacco Use Smoking status: Former Smoker Types: Cigarettes Quit date: 05/19/1975 Years since quittin.6 Smokeless tobacco: Never Used Vaping Use Vaping Use: Never used Substance Use Topics Alcohol use: Yes Comment: seldom Drug use: Never Current Meds aspirin, enteric coated (ASPIRIN, ENTERIC COATED) 81 mg EC tablet Take 81 mg by mouth. meloxicam (MOBIC) 15 mg tablet Take 15 mg by mouth once daily. omega 3,6,9 combination no.7 92 mg (43 mg-22 [id number]) chew Take by mouth. cholecalciferol (VITAMIN D-3) 5,000 unit tab Take 5,000 Units by mouth once daily. pyridoxine, vitamin B6, (VITAMIN B-6) 100 mg tablet Take 100 mg by mouth once daily. MEN'S MULTI-VITAMIN ORAL Take by mouth. Ibuprofen 200 mg cap Take by mouth every 6 hours as needed. gabapentin (NEURONTIN) 300 mg capsule TAKE 1 CAPSULE IN THE MORNING , ONE CAPSULE AT LUNCH , AND 2 CAPSULES BY MOUTH IN THE EVENING cyclobenzaprine (FLEXERIL) 10 mg tablet cyclobenzaprine 10 mg tablet TAKE 1 TABLET BY MOUTH THREE TIMES A DAY NEEDED NOT COVERED cyanocobalamin (VITAMIN B-12) 100 mcg tab Take 50 mcg by mouth. blood sugar diagnostic (ONETOUCH ULTRA TEST STRIP) test strip OneTouch Ultra Test strips Take 1 strip 4 times a day by miscell. route for 90 days. ubidecarenone Q-10 (COENZYME Q-10) 10 mg cap Take 100 mg by mouth once daily. amLODIPine (NORVASC) 5 mg tablet Take 1 tablet by mouth once daily. glipiZIDE (GLUCOTROL XL) 2.5 mg 24 hr tablet Take 1 tablet by mouth once daily. metoprolol succinate ER (TOPROL XL) 100 mg Take 1 tablet by mouth once daily. levothyroxine (SYNTHROID) 100 mcg tablet Take 1 tablet by mouth once daily. metFORMIN (GLUCOPHAGE) 1,000 mg tablet Take 1 tablet by mouth daily with breakfast. fluticasone (FLONASE) 50 mcg/actuation nasal spray fluticasone propionate 50 mcg/actuation nasal spray,suspension aspirin-calcium carbonate 81 mg-300 mg calcium(777 mg) tab Take 81 mg by mouth. I have confirmed and edited as necessary the past medical, family and social histories, HPI, and ROS obtained by others. Objective BP 112/64 (BP Site: Left Arm, BP Position: Sitting) Pulse (!) 59 Temp 36.7 C (98 F) Ht 5' 6 (1.676 m) Wt 201 lb (91.2 kg) SpO2 98% BMI 32.44 kg/m Physical Exam Vitals and nursing note reviewed. Constitutional: General: He is not in acute distress. Appearance: Normal appearance. He is well-developed. He is not ill-appearing. HENT: Head: Normocephalic. Right Ear: Tympanic membrane, ear canal and external ear normal. There is no impacted cerumen. Left Ear: Tympanic membrane, ear canal and external ear normal. There is no impacted cerumen. Nose: Nose normal. Mouth/Throat: Mouth: Mucous membranes are moist. Pharynx: Oropharynx is clear. Uvula midline. No oropharyngeal exudate or posterior oropharyngeal erythema. Eyes: General: Lids are normal. Vision grossly intact. Gaze aligned appropriately. No scleral icterus. Right eye: No discharge. Left eye: No discharge. Extraocular Movements: Extraocular movements intact. Conjunctiva/sclera: Conjunctivae normal. Pupils: Pupils are equal, round, and reactive to light. Neck: Thyroid: No thyroid mass, thyromegaly or thyroid tenderness. Vascular: No carotid bruit. Trachea: Trachea and phonation normal. Cardiovascular: Rate and Rhythm: Normal rate and regular rhythm. Pulses: Normal pulses. Heart sounds: Normal heart sounds. Pulmonary: Effort: Pulmonary effort is normal. Breath sounds: Normal breath sounds. Abdominal: General: Abdomen is flat. Bowel sounds are normal. Palpations: Abdomen is soft. Musculoskeletal: General: Normal range of motion. Right shoulder: Normal. Left shoulder: Normal. Cervical back: Normal, full passive range of motion without pain and neck supple. No tenderness. Nospinous process tenderness. Thoracic back: Normal. Lumbar back: Normal. Right knee: Normal. Left knee: Normal. Right lower leg: No edema. Left lower leg: No edema. Lymphadenopathy: Cervical: No cervical adenopathy. Skin: General: Skin is warm and dry. Neurological: General: No focal deficit present. Mental Status: He is alert and oriented to person, place, and time. Mental status is at baseline. Cranial Nerves: Cranial nerves are intact. Sensory: Sensation is intact. Motor: Motor function is intact. Psychiatric: Attention and Perception: Attention and perception normal. Mood and Affect: Mood normal. Speech: Speech normal. Behavior: Behavior normal. Thought Content: Thought content normal. Judgment: Judgment normal. Data Reviewed: No new labs ASSESSMENT/PLAN: 1. Type 2 diabetes mellitus with diabetic neuropathy, without long-term current use of insulin (HCC) - ICD9: 250.60, 357.2, ICD10: E11.40 (primary diagnosis) -Controlled. - Check HgA1C - HGB A1C 2. Mixed hyperlipidemia - ICD9: 272.2, ICD10: E78.2 - to be determined upon return of lab results - Encouraged following a low fat, low cholesterol diet. - Discussed the benefits of regular aerobic exercise and weight loss. - CBC + DIFF - COMP METABOLIC PANEL - LIPID PANEL BASIC - URINALYSIS, WITH MICROSCOPIC 3. Benign essential hypertension - ICD9: 401.1, ICD10: I10 - good control - Continue current medication(s) - Recommended regular aerobic exercise. - Recommend home blood pressure monitoring, to bring results in on next visit - Goal of BP <130/80 4. Acquired hypothyroidism - ICD9: 244.9, ICD10: E03.9 - Instructed patient on importance of taking on an empty stomach either first thing in the morning or at bedtime. - continue current dose of Synthroid - Check TSH - TSH BLD 5. Screening for prostate cancer - ICD9: V76.44, ICD10: Z12.5 - Check PSA - PSA/PROSTSPECAG SCRN Eric Nicolas DO Return in about 6 months (around 06/30/2021). Attestation: Scribe Statement: Alessandra Miranda am scribing for, and in the presence of, Eric Nicolas DO December 28, 2020 10:38 AM. Physician Statement: I, Eric Nicolas DO, personally performed the services described in the documentation, as scribed by Riya Starks in my presence, and it is both accurate and complete December 28, 2020 10:42 AM. documented in this encounterWhite Hospital05-05-2021 Miscellaneous Notes* Telephone Encounter - Maribel Brooks LPN - 09/29/2020 8:33 AM EDT Pharmacy faxed requesting the following refill Refill(s) Requested: Pending Prescriptions Disp Refills GABAPENTIN 300 MG CAPSULE 360 capsule Sig: TAKE 1 CAPSULE IN THE MORNING , ONE CAPSULE AT LUNCH , AND 2 CAPSULES BY MOUTH IN THE EVENING DAVID: No ALLERGIES Allergen Reactions Bee Pollen Hives Venom-Honey Bee Hives (home) [phone] (cell) Last Office Visit Date: 06/28/2020 Last [facility] Visit: Visit date not found Future Appointment: 12/28/2020 The patients preferred pharmacy has been captured for this encounter? yes Request is for script(s) to be escript to pharmacy. Maribel Brooks LPN documented in this encounterWhite Hospital02-15-2021 Miscellaneous Notes* Telephone Encounter - Ana Pedraza - 07/12/2020 2:11 PM EST In order for pt to get his Gabapentin the PRN needs to be dropped, so the med will go through pharmacy. Ana Pedraza documented [facility] [place] [facility]* Diagnosis Type 2 diabetes mellitus with diabetic neuropathy, without long-term current use of insulin (HCC)- Primary Mixed hyperlipidemia Benign essential hypertension Essential hypertension, benign Acquired hypothyroidism Unspecified hypothyroidism Screening for prostate cancer Special screening for malignant neoplasm of prostate [facility] [place] [facility]* Diagnosis Cervical radiculopathy- Primary Brachial neuritis or radiculitis nos documented [facility] [place] [facility]* Diagnosis Cervical radiculopathy- Primary Brachial neuritis or radiculitis nos [facility] [place] [facility]* Diagnosis Benign essential hypertension Essential hypertension, benign Acquired hypothyroidism Unspecified hypothyroidism Type 2 diabetes mellitus with diabetic neuropathy, without long-term current use of insulin (HCC) [facility] [place] [facility]* Diagnosis OPENED IN ERROR- Primary To allow closing an encounter opened in error (used in SmartSet) documented [facility] [place] [facility]* Diagnosis Type 2 diabetes mellitus with diabetic neuropathy, without long-term current use of insulin (HCC)- Primary Cervical radiculopathy Brachial neuritis or radiculitis nos Carpal tunnel syndrome, right Carpal tunnel syndrome Special screening examination for viral disease Special screening examination for unspecified viral disease [facility] [place] [facility]* Diagnosis Type 2 diabetes mellitus with diabetic neuropathy, without long-term current use of insulin (HCC) [facility] [place] [facility]* Diagnosis Cervical radiculopathy, chronic- Primary Brachial neuritis or radiculitis nos [facility] [place] [facility]* Diagnosis OPENED IN ERROR- Primary To allow closing an encounter opened in error (used in SmartSet) [facility] [place] [facility]* Diagnosis Type 2 diabetes mellitus with diabetic neuropathy, without long-term current use of insulin (HCC) Hypothyroidism Unspecified hypothyroidism [facility] [place] [facility]* Diagnosis Stage 3b chronic kidney disease (HCC)- Primary [facility] [place] [facility]* Diagnosis Type 2 diabetes mellitus with diabetic neuropathy, without long-term current use of insulin (HCC) documented in this encounter [facility] note* Diagnosis Type 2 diabetes mellitus with diabetic neuropathy, without long-term current use of insulin (HCC)- Primary Benign essential hypertension Essential hypertension, benign Mixed hyperlipidemia Screening for malignant neoplasm of prostate documented in this encounter [facility] note* Diagnosis Type 2 diabetes mellitus with diabetic neuropathy, without long-term current use of insulin (HCC) Benign essential hypertension Essential hypertension, benign Acquired hypothyroidism Unspecified hypothyroidism documented in this encounter [facility] note* Diagnosis Type 2 diabetes mellitus with diabetic neuropathy, without long-term current use of insulin (HCC) documented in this encounter [facility] note* Diagnosis Type 2 diabetes mellitus with diabetic neuropathy, without long-term current use of insulin (HCC)- Primary Mixed hyperlipidemia Obesity, Class I, BMI 30-34.9 Obesity, unspecified Stage 3b chronic kidney disease (HCC) documented in this encounter [facility] note* Diagnosis Type 2 diabetes mellitus with diabetic neuropathy, without long-term current use of insulin (HCC) documented in this encounter [facility] note* Diagnosis Benign essential hypertension- Primary Essential hypertension, benign Type 2 diabetes mellitus with stage 3 chronic kidney disease, without long-term current use of insulin, unspecified whether stage 3a or 3b CKD (HCC) Stage 3b chronic kidney disease (HCC) Acquired hypothyroidism Unspecified hypothyroidism Mixed hyperlipidemia Screening for thyroid disorder Screening for prostate cancer Special screening for malignant neoplasm of prostate Obesity, Class I, BMI 30-34.9 Obesity, unspecified documented in this encounter [facility] note* Diagnosis NSTEMI (non-ST elevated myocardial infarction) (HCC)- Primary Acute myocardial infarction, subendocardial infarction, episode of care unspecified NSTEMI (non-ST elevated myocardial infarction) (HCC) Acute myocardial infarction, subendocardial infarction, episode of care unspecified Mixed hyperlipidemia 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) CKD stage 3a, GFR 45-59 ml/min (HCC) Essential hypertension Unspecified essential hypertension NSTEMI (non-ST elevated myocardial infarction) (HCC) Acute myocardial infarction, subendocardial infarction, episode of care unspecified documented in this encounter [facility] note* Diagnosis NSTEMI (non-ST elevated myocardial infarction) (HCC)- Primary Acute myocardial infarction, subendocardial infarction, episode of care unspecified NSTEMI (non-ST elevated myocardial infarction) (HCC) Acute myocardial infarction, subendocardial infarction, episode of care unspecified Mixed hyperlipidemia 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) Non-ST elevation (NSTEMI) myocardial infarction (HCC) S/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 Mixed hyperlipidemia Coronary artery disease involving [place] coronary artery of [place] heart with unstable angina pectoris ([facility]) CKD stage 3a, GFR 45-59 ml/min ([facility]) Essential hypertension Unspecified essential hypertension NSTEMI (non-ST elevated myocardial infarction) (HCC) Acute myocardial infarction, subendocardial infarction, episode of care unspecified [facility] [place] [facility]* Diagnosis S/P CABG (coronary artery bypass graft)- Primary Postsurgical aortocoronary bypass status Coronary artery disease involving [place] coronary artery of [place] heart, unspecified whether angina present NSTEMI (non-ST elevated myocardial infarction) ([facility]) Acute myocardial infarction, subendocardial infarction, episode of care unspecified Hypertension, unspecified type [facility] [place] [facility]* Diagnosis 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- Primary Essential hypertension Unspecified essential hypertension Mixed hyperlipidemia CKD stage 3a, GFR 45-59 ml/min ([facility]) Postoperative atrial fibrillation ([facility]) documented [facility] [place] [facility]* Diagnosis Paroxysmal atrial fibrillation (HCC)- Primary Atrial fibrillation Coronary artery disease involving [place] coronary artery of [place] heart with unstable angina pectoris ([facility]) Mixed hyperlipidemia [facility] [place] [facility]* Diagnosis Paroxysmal atrial fibrillation (HCC) Atrial fibrillation [facility] [place] [facility]* Diagnosis Benign essential hypertension- Primary Essential hypertension, benign Acquired hypothyroidism Unspecified hypothyroidism Type 2 diabetes mellitus with stage 3 chronic kidney disease, without long-term current use of insulin, unspecified whether stage 3a or 3b CKD (HCC) Mixed hyperlipidemia Paroxysmal atrial fibrillation (HCC) Atrial fibrillation Stage 3b chronic kidney disease (HCC) 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 Pain in both lower extremities Class 1 obesity with body mass index (BMI) of 30.0 to 30.9 in adult, unspecified obesity type, unspecified whether serious comorbidity present [facility] [place] [facility]* Diagnosis Pain in right leg Pain in left leg Peripheral vascular disease, unspecified (HCC) Peripheral vascular disease, unspecified documented in this encounter [facility] note* Diagnosis PVD (peripheral vascular disease)- Primary Peripheral vascular disease, unspecified documented in this encounter [facility] note* Diagnosis Paroxysmal atrial fibrillation (HCC)- Primary Atrial fibrillation documented in this encounter [facility] note* Diagnosis Benign essential hypertension- Primary Essential hypertension, benign documented in this encounter [facility] for referral (narrative)* Diagnostic Procedure Only (Routine) - Closed Specialty Diagnoses / Procedures Referred By Contac t Referred To Contact US IMAGING Diagnoses Type 2 diabetes mellitus with diabetic neuropathy, without long-term current use of insulin (HCC) Procedures US KIDNEY/BLADDER US RETROPERITONEAL REAL TIME W/IMAGE COMPLETE Eric Nicolas, [place] [address] Us Imaging Referral ID Status Reason Start Date Expiration Date V isits Requested Visits Authorized [id number] Closed Auto-Generate d Referral 04/27/2022 05/27/2023 1 1 [facility] for visit Narrative* Diagnostic Procedure Only (Routine) - Closed Specialty Diagnoses / Procedures Referred By Contac t Referred To Contact US IMAGING Diagnoses Type 2 diabetes mellitus with diabetic neuropathy, without long-term current use of insulin (HCC) Procedures US KIDNEY/BLADDER US RETROPERITONEAL REAL TIME W/IMAGE COMPLETE Eric Nicolas, [place] [address] Us Imaging Referral ID Status Reason Start Date Expiration Date V isits Requested Visits Authorized [id number] Closed Auto-Generate d Referral 04/27/2022 05/27/2023 1 1 [facility] for visit Narrative* Cardiology (Routine) - Closed Specialty Diagnoses / Procedures Referred By Contac t Referred To Contact Cardiology Diagnoses Paroxysmal atrial fibrillation (HCC) Procedures Cardiac holter monitor (3-7 days) HI EXTERNAL ECG REC>48HR<7D REVIEW & INTERPRETATION HI EXTERNAL ECG REC>48HR<7D RECORDING HI EXTERNAL ECG REC>7D<15D RECORDING HI EXTERNAL ECG REC>7D<15D REVIEW & INTERPRETATION Gustavo Azar MD 1 [facility] [address] [place] [address] Phone: tel: fax: Referral ID Status Reason Start Date Expiration Date Visits Re quested Visits Authorized [id number] Closed 04/28/2024 04/23/2025 1 1 [facility] N[facility]* Imaging (Routine) - Pending Review Specialty Diagnoses / Procedures Referred By Contac t Referred To Contact Cardiology Diagnoses Pain in right leg Pain in left leg Peripheral vascular disease, unspecified (HCC) Procedures Vascular US lower extremity arterial PVR Vascular US lower extremity arterial PVR Eric Nicolas, [address] [address] Phone: tel: fax: Referral ID Status Reason Start Date Expiration Date V isits Requested Visits Authorized [id number] Pending Review 08/11/2024 08/11/2025 1 1 [facility] Summary Purpose Family History No Family History Records FoundNo Family History Records FoundNo Family History Records FoundNo Family History Records FoundNo Family History Records FoundNo Family History Records Found Advance Directives No Advanced Directives Records FoundDocuments on File Type Date Recorded Patient 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 Expl anation Advance Directives and Living Will Power of Consumer Safety Officer Date Activated Date Inactivated Comments 01/18/2024 2:32 AM Documents on File Type Date Recorded Patient 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 Expl anation Power of Consumer Safety Officer 01/22/2024 11:19 AM Date Activated Date Inactivated Comments 01/18/2024 2:32 AM 01/31/2024 8:51 PM Documents on File Type Date Recorded Patient 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 Expl anation Power of Consumer Safety Officer 02/01/2024 11:45 AM Power of Consumer Safety Officer 01/22/2024 11:19 AM Documents on File Type Date Recorded Patient 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 Expl anation Power of Consumer Safety Officer 02/01/2024 11:45 AM Power of Consumer Safety Officer 01/22/2024 11:19 AM Date Activated Date Inactivated Comments 01/18/2024 2:32 AM 01/31/2024 8:51 PM Reason for Referral Specialty Diagnoses / Procedures Referred By Contac t Referred To Contact MR IMAGING Diagnoses Cervical radiculopathy Procedures MRI CERVICAL SPINE WO IVCON MRI, CERV SPINE Eric Nicolas, DO [address] [place] [address] Mr Imaging Referral ID Status Reason Start Date Expiration Date Visits Requested Visits Authorized [id number] Pending Review Auto-Generat ed Referral 06/08/2022 1 1 Specialty Diagnoses / Procedures Referred By Contac t Referred To Contact [facility] Diagnoses Cervical radiculopathy Procedures CONSULT TO PHYSICAL THERAPY PHYSICAL THERAPY EVALUATION HIGH COMPLEX 45 MINS Eric Nicolas, DO [address] [place] [address] [facility] [address] [address] Referral ID Status Reason Start Date Expiration Date Visits Requested Visits Authorized [id number] Pending Review Auto-Generat ed Referral 07/14/2021 07/14/2022 1 1 Specialty Diagnoses / Procedures Referred By Contac t Referred To Contact Physical Therapy Diagnoses Cervical radiculopathy, chronic Procedures CONSULT TO PHYSICAL THERAPY Eric Nicolas, DO [address] [place] [address] Referral ID Status Reason Start Date Expiration Date Visits Requested Visits Authorized [id number] Ref Not Required PCP Requested Referral 06/09/2021 06/06/2022 1 1 Specialty Diagnoses / Procedures Referred By Contac t Referred To Contact Nephrology Diagnoses Stage 3b chronic kidney disease (HCC) Procedures CONSULT TO NEPHROLOGY OFFICE/OUTPATIENT [facility] MDM 60-74 MINUTES Eric Nicolas, DO [address] [place] [address] Referral ID Status Reason Start Date Expiration Date Visits Requested Visits Authorized [id number] Pending Review PCP Requested Referral 04/28/2022 04/27/2023 1 1 Specialty Diagnoses / Procedures Referred By Contac t Referred To Contact Orthopedics Diagnoses Arthritis of both knees Procedures CONSULT TO ORTHOPAEDICS OFFICE/OUTPATIENT [facility] MDM 60 MINUTES Eric Nicolas, [place] [address] Referral ID Status Reason Start Date Expiration Date Visits Requested Visits Authorized [id number] Authorized PCP Requested Referral 12/13/2023 12/12/2024 1 1 Additional Source Comments (unrecognized sect ion and content) No Status Records FoundNo Status Records FoundNo Status Records FoundNo Status Records FoundNo Status Records FoundNo Status Records Found INFORMATION SOURCE (unrecogn ized section and content) DATE CREATED AUTHOR 06/09/2019 [facility] DATE CREATED AUTHOR AUTHOR'S ORGANIZ ATION 12/02/2023 [facility] DATE CREATED AUTHOR AUTHOR'S ORGANIZ ATION 07/03/2024 [facility] DATE CREATED AUTHOR AUTHOR'S ORGANIZ ATION 09/03/2024 [facility] DATE CREATED AUTHOR AUTHOR'S ORGANIZ ATION 09/09/2024 [facility] DATE CREATED AUTHOR AUTHOR'S ORGANIZ ATION 10/24/2024 [facility] Source Comments (unrecognize d section and content) In the event this informatio n is protected by the Federal Confidentiality of Alcohol and Drug Abuse Patient Records regulations: The Federal rules restrict any use of the information to criminally investigate or prosecute any alcohol or drug abuse patient.[facility] HospitalIn the event this information is protected by the Federal Confidentiality of Alcohol and Drug Abuse Patient Records regulations: The Federal rules restrict any use of the information to criminally investigate or prosecute any alcohol or drug abuse patient.[facility] HospitalIn the event this information is protected by the Federal Confidentiality of Alcohol and Drug Abuse Patient Records regulations: The Federal rules restrict any use of the information to criminally investigate or prosecute any alcohol or drug abuse patient.[facility] HospitalIn the event this information is protected by the Federal Confidentiality of Alcohol and Drug Abuse Patient Records regulations: The Federal rules restrict any use of the information to criminally investigate or prosecute any alcohol or drug abuse patient.[facility] HospitalIn the event this information is protected by the Federal Confidentiality of Alcohol and Drug Abuse Patient Records regulations: The Federal rules restrict any use of the information to criminally investigate or prosecute any alcohol or drug abuse patient.[facility] HospitalIn the event this information is protected by the Federal Confidentiality of Alcohol and Drug Abuse Patient Records regulations: The Federal rules restrict any use of the information to criminally investigate or prosecute any alcohol or drug abuse patient.[facility] HospitalIn the event this information is protected by the Federal Confidentiality of Alcohol and Drug Abuse Patient Records regulations: The Federal rules restrict any use of the information to criminally investigate or prosecute any alcohol or drug abuse patient.[facility] HospitalIn the event this information is protected by the Federal Confidentiality of Alcohol and Drug Abuse Patient Records regulations: The Federal rules restrict any use of the information to criminally investigate or prosecute any alcohol or drug abuse patient.[facility] HospitalIn the event this information is protected by the Federal Confidentiality of Alcohol and Drug Abuse Patient Records regulations: The Federal rules restrict any use of the information to criminally investigate or prosecute any alcohol or drug abuse patient.[facility] HospitalIn the event this information is protected by the Federal Confidentiality of Alcohol and Drug Abuse Patient Records regulations: The Federal rules restrict any use of the information to criminally investigate or prosecute any alcohol or drug abuse patient.[facility] HospitalIn the event this information is protected by the Federal Confidentiality of Alcohol and Drug Abuse Patient Records regulations: The Federal rules restrict any use of the information to criminally investigate or prosecute any alcohol or drug abuse patient.[facility] HospitalIn the event this information is protected by the Federal Confidentiality of Alcohol and Drug Abuse Patient Records regulations: The Federal rules restrict any use of the information to criminally investigate or prosecute any alcohol or drug abuse patient.[facility] HospitalIn the event this information is protected by the Federal Confidentiality of Alcohol and Drug Abuse Patient Records regulations: The Federal rules restrict any use of the information to criminally investigate or prosecute any alcohol or drug abuse patient.[facility] HospitalIn the event this information is protected by the Federal Confidentiality of Alcohol and Drug Abuse Patient Records regulations: The Federal rules restrict any use of the information to criminally investigate or prosecute any alcohol or drug abuse patient.[facility] HospitalIn the event this information is protected by the Federal Confidentiality of Alcohol and Drug Abuse Patient Records regulations: The Federal rules restrict any use of the information to criminally investigate or prosecute any alcohol or drug abuse patient.White HospitalIn the event this information is protected by the Federal Confidentiality of Alcohol and Drug Abuse Patient Records regulations: The Federal rules restrict any use of the information to criminally investigate or prosecute any alcohol or drug abuse patient.White HospitalIn the event this information is protected by the Federal Confidentiality of Alcohol and Drug Abuse Patient Records regulations: The Federal rules restrict any use of the information to criminally investigate or prosecute any alcohol or drug abuse patient.White HospitalIn the event this information is protected by the Federal Confidentiality of Alcohol and Drug Abuse Patient Records regulations: The Federal rules restrict any use of the information to criminally investigate or prosecute any alcohol or drug abuse patient.White HospitalIn the event this information is protected by the Federal Confidentiality of Alcohol and Drug Abuse Patient Records regulations: The Federal rules restrict any use of the information to criminally investigate or prosecute any alcohol or drug abuse patient.White HospitalIn the event this information is protected by the Federal Confidentiality of Alcohol and Drug Abuse Patient Records regulations: The Federal rules restrict any use of the information to criminally investigate or prosecute any alcohol or drug abuse patient.White HospitalIn the event this information is protected by the Federal Confidentiality of Alcohol and Drug Abuse Patient Records regulations: The Federal rules restrict any use of the information to criminally investigate or prosecute any alcohol or drug abuse patient.White HospitalIn the event this information is protected by the Federal Confidentiality of Alcohol and Drug Abuse Patient Records regulations: The Federal rules restrict any use of the information to criminally investigate or prosecute any alcohol or drug abuse patient.White HospitalIn the event this information is protected by the Federal Confidentiality of Alcohol and Drug Abuse Patient Records regulations: The Federal rules restrict any use of the information to criminally investigate or prosecute any alcohol or drug abuse patient.White HospitalIn the event this information is protected by the Federal Confidentiality of Alcohol and Drug Abuse Patient Records regulations: The Federal rules restrict any use of the information to criminally investigate or prosecute any alcohol or drug abuse patient.White HospitalIn the event this information is protected by the Federal Confidentiality of Alcohol and Drug Abuse Patient Records regulations: The Federal rules restrict any use of the information to criminally investigate or prosecute any alcohol or drug abuse patient.[facility] HospitalIn the event this information is protected by the Federal Confidentiality of Alcohol and Drug Abuse Patient Records regulations: The Federal rules restrict any use of the information to criminally investigate or prosecute any alcohol or drug abuse patient.[facility] HospitalIn the event this information is protected by the Federal Confidentiality of Alcohol and Drug Abuse Patient Records regulations: The Federal rules restrict any use of the information to criminally investigate or prosecute any alcohol or drug abuse patient.[facility] HospitalIn the event this information is protected by the Federal Confidentiality of Alcohol and Drug Abuse Patient Records regulations: The Federal rules restrict any use of the information to criminally investigate or prosecute any alcohol or drug abuse patient.[facility] HospitalIn the event this information is protected by the Federal Confidentiality of Alcohol and Drug Abuse Patient Records regulations: The Federal rules restrict any use of the information to criminally investigate or prosecute any alcohol or drug abuse patient.[facility] HospitalIn the event this information is protected by the Federal Confidentiality of Alcohol and Drug Abuse Patient Records regulations: The Federal rules restrict any use of the information to criminally investigate or prosecute any alcohol or drug abuse patient.[facility] HospitalIn the event this information is protected by the Federal Confidentiality of Alcohol and Drug Abuse Patient Records regulations: The Federal rules restrict any use of the information to criminally investigate or prosecute any alcohol or drug abuse patient.White HospitalIn the event this information is protected by the Federal Confidentiality of Alcohol and Drug Abuse Patient Records regulations: The Federal rules restrict any use of the information to criminally investigate or prosecute any alcohol or drug abuse patient.White HospitalIn the event this information is protected by the Federal Confidentiality of Alcohol and Drug Abuse Patient Records regulations: The Federal rules restrict any use of the information to criminally investigate or prosecute any alcohol or drug abuse patient.[facility] HospitalIn the event this information is protected by the Federal Confidentiality of Alcohol and Drug Abuse Patient Records regulations: The Federal rules restrict any use of the information to criminally investigate or prosecute any alcohol or drug abuse patient.[facility] HospitalIn the event this information is protected by the Federal Confidentiality of Alcohol and Drug Abuse Patient Records regulations: The Federal rules restrict any use of the information to criminally investigate or prosecute any alcohol or drug abuse patient.[facility] HospitalIn the event this information is protected by the Federal Confidentiality of Alcohol and Drug Abuse Patient Records regulations: The Federal rules restrict any use of the information to criminally investigate or prosecute any alcohol or drug abuse patient.[facility] HospitalIn the event this information is protected by the Federal Confidentiality of Alcohol and Drug Abuse Patient Records regulations: The Federal rules restrict any use of the information to criminally investigate or prosecute any alcohol or drug abuse patient.White HospitalIn the event this information is protected by the Federal Confidentiality of Alcohol and Drug Abuse Patient Records regulations: The Federal rules restrict any use of the information to criminally investigate or prosecute any alcohol or drug abuse patient.[facility] Reason for Visit (unrecogniz ed section and content) Reason Comments Refill Request Reason Comments Results A1C Reason Comments Medication Problem Reason Comments Follow Up Diabetes Hypertension Status Reason Specialty Diagnoses / Procedures Referred By Contact Referred To Contact Closed Financial Clearance Not Required Family Practice / FAMILY MEDICINE Diagnoses 6 month f/u and A1C check Procedures EST PATIENT VISIT LEVEL 4 EST PATIENT Eric Nicolas, [place] [address] Iv[address] Nicolasland Stevenson, [place] [address] Reason Comments Orders Reason Comments Pain right upper back, an d down right arm, since 04/23/21, covid vaccine on 04/14/21 in right arm. Reason Comments Numbness right hand Pain right elbow Reason Onset Date Comments Refill Request 05/26/2021 Reason Onset Date Comments Opened In Error 06/03/2021 Reason Comments Results Reason Comments Diabetes Physical Therapy update from [facility] unable to get d/t de nial by insurance Reason Comments Diabetes lab results Rx Refills diabetic supplies - one touch strips Reason Comments Refill Request Test strips Reason Comments Orders Reason Onset Date Comments Opened In Error 11/25/2021 Reason Comments Consult Nephrology Reason Comments Results Reason Comments Diabetes 6 month check up Reason Onset Date Comments Refill Request 06/26/2022 Reason Comments Follow Up 6 month Diabetes follow up after seeing kidney specialist Reason Comments Hypertension Hyperlipidemia Reason Comments Patient Question Covid positive Reason Comments Medication Problem Paxlovid [facility] and [facility] go [facility] Reason Comments F/U Diabetes 6 Month Lab & Test Results Patient had blood wo rk prior to today's appointment Hypertension Knee Pain Wanting a referral f or this Reason Comments Chest Pain Specialty Diagnoses / Procedures Referred By Contac t Referred To Contact Diagnoses NSTEMI (non-ST elevated myocardial infarction) (HCC) Procedures . Michael Urena MD [address] [place] [address] [facility] [address] [place] [address] Referral ID Status Reason Start Date Expiration Date Visits Re quested Visits Authorized [id number] 1 1 Reason Comments Post-op Reason Comments Follow-up Reason Comments Hospital Follow-up Reason Comments Follow-up Reason Onset Date Comments Results 06/02/2024 Monitor Reason Comments Follow Up After assisted ankit Petersen. Left the facility 08/06/24. Patient states since leaving he has had no medications. Reason Comments Orders US fax Summa Reason Comments Orders US arterial PVR [facility]. Insurance will not accept the diagnosis or pain we need to change the diagnosis and resend a new order to [phone] Telephone Encounter - Ana Pedraza - 04/27/2020 4:26 PM ESTTelephone Encounter - Ana Pedraza - 04/27/2020 4:25 PM ESTTelephone Encounter - Maribel Brooks - 06/30/2020 4:03 PM EST Miscellaneous Notes (unrecog nized section and content) Patient called requesting the following refill Refill(s) Requested: Pending Prescriptions Disp Refills GLIPIZIDE ER 2.5 MG TABLET, EXTENDED RELEASE 24 HR DAVID: No METFORMIN 1,000 MG TABLET DAVID: No ALLERGIES Not on File (home) [phone] (cell) Last Visit date: Visit date not found Future appointment: Visit date not found The patients preferred pharmacy has been captured for this encounter? yes Request is for script(s) to be escript to pharmacy Send scripts to [facility]. Ana Pedraza ----- Message from Fatoumata Nieto sent at 04/27/2020 2:44 PM EST ----- Regarding: Medicine/Darinel/Fidencio/Patient Question Contact: Subject Line Format: Medicine / [Provider Name] / [Issue] Patient has been identified by name and Date of (Y/N): y Patient: Jorge Salamanca Date of : 1945 Provider for this encounter: No primary care provider on file. Reason for the call/escalation: patient said his PCP is Dr Nicolas and needs DM medication refill. Has [employer] insurance, which is currently [id number]. Created OON referral for patient; advised him he will be getting call from Financial [employer], and once he receives authorization from FC he can schedule appt. Patient is very unhappy and hopes the office can intervene on his behalf. Person calling if other than patient: n/a Return call to if other than patient: n/a Best contact number: [phone] Thanks, Fatoumata Nieto April 27, 2020 2:49 PM documented in this encounter Patient advised. ----- Message from Eric Nicolas sent at 06/29/2020 9:24 AM EST ----- A1c normal documented in this encounter Care Teams (unrecognized sec tion and content) Objective C Developer Relationship Specialty Start Date End Date Eric Nicolas DO [address] [place] [address] PCP - General Family Practice 09/29/20 Objective C Developer Relationship Specialty Start Date End Date Eric Nicolas DO [address] [place] [address] PCP - General Family Practice 09/29/20 Objective C Developer Relationship Specialty Start Date End Date Eric Nicolas, DO [address] [place] [address] PCP - General Family Practice 09/29/20 Objective C Developer Relationship Specialty Start Date End Date Eric Nicolas, DO [address] [place] [address] PCP - General Family Practice 09/29/20 Objective C Developer Relationship Specialty Start Date End Date Eric Nicolas, DO [address] [place] [address] PCP - General Family Practice 09/29/20 Objective C Developer Relationship Specialty Start Date End Date Eric Nicolas, DO [address] [place] [address] PCP - General Family Practice 09/29/20 Objective C Developer Relationship Specialty Start Date End Date Eric Nicolas, DO [address] [place] [address] PCP - General Family Practice 09/29/20 Objective C Developer Relationship Specialty Start Date End Date Eric Nicolas, DO [address] [place] [address] PCP - General Family Practice 09/29/20 Objective C Developer Relationship Specialty Start Date End Date Eric Nicolas, DO [address] [place] [address] PCP - General Family Practice 09/29/20 Objective C Developer Relationship Specialty Start Date End Date Eric Nicolas, DO [address] [place] [address] PCP - General Family Practice 09/29/20 Objective C Developer Relationship Specialty Start Date End Date Eric Nicolas, DO [address] [place] [address] PCP - General Family Medicine 09/29/20 Objective C Developer Relationship Specialty Start Date End Date Eric Nicolas, DO [address] [place] [address] PCP - General Family Medicine 09/29/20 Objective C Developer Relationship Specialty Start Date End Date Eric Nicolas, DO [address] [place] [address] PCP - General Family Medicine 09/29/20 Objective C Developer Relationship Specialty Start Date End Date Eric Nicolas, [address] [address] PCP - General Family Medicine 09/29/20 Eric Nicolas, [address] [address] Referring Family Medicine 04/28/22 Objective C Developer Relationship Specialty Start Date End Date Eric Nicolas [address] [address] PCP - General Family Medicine 09/29/20 Objective C Developer Relationship Specialty Start Date End Date Eric Nicolas, [address] [address] PCP - General Family Medicine 09/29/20 Eric Nicolas, [address] [address] Referring Family Medicine 04/28/22 Objective C Developer Relationship Specialty Start Date End Date Eric Nicolas, DO [address] [place] [address] PCP - General Family Medicine 09/29/20 Eric Nicolas, DO [address] [place] [address] Referring Family Medicine 04/28/22 Objective C Developer Relationship Specialty Start Date End Date Eric Nicolas DO [address] [place] [address] PCP - General Family Medicine 09/29/20 Eric Nicolas, DO [address] [place] [address] Referring Family Medicine 04/28/22 Objective C Developer Relationship Specialty Start [place] [address] PCP - General Family Medicine 09/29/20 Eric Nicolas, [place] [address] Referring Family Medicine 04/28/22 Objective C Developer Relationship Specialty Start Date End Date Eric Nicolas DO [address] [place] [address] PCP - General Family Medicine 09/29/20 FidencioEric suarez [address] [place] [phone] Referring Family Medicine 04/28/22 Objective C Developer Relationship Specialty Start Date End Date Eric Nicolas DO [address] [place] [id number] PCP - General Family Medicine 09/29/20 Fidencio Eric GaminoDO [address] [place] [address] [phone] Referring Family Medicine 04/28/22 Objective C Developer Relationship Specialty Start Date End Date Eric Nicolas DO [address] [place] [phone] PCP - General Family Medicine 09/29/20 Eric Nicolas DO [address] [place] [phone] Referring Family Medicine 04/28/22 Objective C Developer Relationship Specialty Start Date End Date Eric Nicolas DO [address] [place] [address] PCP - General Family Medicine 09/29/20 Eric Nicolas DO [address] [place] [phone] Referring Family Medicine 04/28/22 Objective C Developer Relationship Specialty Start Date End Date Eric Nicolas DO [address] [place] [phone] PCP - General Family Medicine 09/29/20 Eric Nicolas DO [address] [place] [address] [phone] Referring Family Medicine 04/28/22 Objective C Developer Relationship Specialty Start Date End Date Eric Nicolas DO [address] [place] [phone] PCP - General Family Medicine 09/29/20 Eric Nicolas DO [address] [place] [address] Referring Family Medicine 04/28/22 Objective C Developer Relationship Specialty Start Date End Date Ivory Nicolasbev [address] [place] [phone] PCP - General 05/28/18 Objective C Developer Relationship Specialty Start Date End Date Ivory NicolasDO [address] [place] [address] PCP - General 05/28/18 Objective C Developer Relationship Specialty Start Date End Date Eric Nicolas [address] [place] [address] PCP - General 05/28/18 Objective C Developer Relationship Specialty Start Date End Date Mark Albarran [facility] [place] [phone] PCP - General Internal Medicine 03/05/24 Objective C Developer Relationship Specialty Start Date End Date Mark Albarran [address] [place] [phone] PCP - General Internal Medicine 03/05/24 Objective C Developer Relationship Specialty Start Date End Date Mark Albarran [address] [place] [phone] PCP - General Internal Medicine 03/05/24 Objective C Developer Relationship Specialty Start Date End Date Mark Albarran [address] [place] [phone] PCP - General Internal Medicine 03/05/24 Objective C Developer Relationship Specialty Start Date End Date Eric NicolasardDO [address] [place] [phone] PCP - General Family Medicine 09/29/20 Eric Nicolas DO [address] [place] [address] [phone] Referring Family Medicine 04/28/22 Objective C Developer Relationship Specialty Start Date End Date Eric Nicolas DO [address] [place] [phone] PCP - General Family Medicine 09/29/20 Eric Nicolas DO [address] [place] [address] 23369 Referring Family Medicine 04/28/22 Objective C Developer Relationship Specialty Start Date End Date Eric Nicolas DO [address] [place] [phone] PCP - General Family Medicine 08/11/24 Objective C Developer Relationship Specialty Start Date End Date Eric Nicolas DO [address] [place] [phone] PCP - General Family Medicine 09/29/20 Eric Nicolas DO [address] [place] [phone] Referring Family Medicine 04/28/22 Objective C Developer Relationship Specialty Start Date End Date Eric Nicolas DO [address] [place] [phone] PCP - General Family Medicine 08/11/24 Objective C Developer Relationship Specialty Start Date End Date Eric Nicolas DO [address] [place] [phone] PCP - General Family Medicine 09/29/20 Eric Nicolas DO [address] [place] [address] [phone] Referring Family Medicine 04/28/22 Objective C Developer Relationship Specialty Start Date End Date Eric Nicolas DO [address] [place] [phone] PCP - General Family Medicine 09/29/20 Eric Nicolas DO [address] [place] [address] [phone] Referring Family Medicine 04/28/22 Scheduled Active and Recently Administ ered Medications (unrecognized section and content) Medication Order 01/17/2024 01/18/2024 01/19/2024 aspirin chewable tablet 324 mg (COMPLETED) 324 mg, Oral, Once, On Sun01/17/24 at 2345, For 1 dose 2351 (Given - Provider: Adriana Arechiga RN) aspirin chewable tablet 81 mg 81 mg, Oral, Daily, First dose on Sun01/18/24 at 0900 0900 (Not Given - Provider: Chloe Jamison RN - Reason: NPO)1012 (Given - Provider: Chloe Jamison RN)1334 (JUL Hold - Provider: Automatic Transfer Provider - Reason: Patient not available)1512 (JUL Unhold - Provider: Automatic Transfer Provider) 0900 (Due) atorvastatin (Lipitor) tablet 80 mg 80 mg, Oral, Daily, First dose on Sun01/18/24 at 0900 0900 (Canceled Entry - Provider: Chloe Jamison RN - Comment: med retimed)1334 (JUL Hold - Provider: Automatic Transfer Provider - Reason: Patient not available)1512 (JUL Unhold - Provider: Automatic Transfer Provider)2100 (Not Given - Provider: Nicolle Medellin RN - Reason: Patient/family refused) 0900 (Due) gabapentin (Neurontin) capsule 100 mg (COMPLETED) 100 mg, Oral, Once, On Sun01/19/24 at 0015, For 1 dose 0012 (Given - Provider: Nedra Salinas RN) gabapentin (Neurontin) capsule 200 mg (COMPLETED) 200 mg, Oral, Once, On Sun01/19/24 at 0030, For 1 dose 0027 (Given - Provider: Nedra Salinas RN) gabapentin (Neurontin) capsule 300 mg 300 mg, Oral, 2 times daily, First dose on Sun01/18/24 at 2315 2329 (Given - Provider: Nedra Salinas RN) 0900 (Due)2100 (Due) heparin injection 4,000 Units (COMPLETED) 4,000 Units, IntraVENous, Once, On Sun01/18/24 at 0035, For 1 dose, Initial one time bolus 0043 (Given - Provider: Adriana Arechiga RN) hydrALAZINE (Apresoline) injection 10 mg (COMPLETED) 10 mg, IntraVENous, Once, On Sun01/18/24 at 0035, For 1 dose 0043 (Given - Provider: Adriana Arechiga RN) levothyroxine (Synthroid, Levoxyl) tablet 100 mcg 100 mcg, Oral, Daily before breakfast, First dose on Sun01/19/24 at 0600, Tube feeding (TF) interaction, obtain physician order to manage, recommend holding TF for 30 minutes before and after dose. 0600 (Due) metoprolol tartrate (Lopressor) tablet 25 mg 25 mg, Oral, 2 times daily, First dose on Sun01/18/24 at 0245 0314 (Given - Provider: Riya Mckeon RN)0900 (Not Given - Provider: Chloe Jamison RN - Reason: NPO)1012 (Given - Provider: Chloe Jamison RN)1334 (MAR Hold - Provider: Automatic Transfer Provider - Reason: Patient not available)1512 (MAR Unhold - Provider: Automatic Transfer Provider)2023 (Given - Provider: Nicolle Medellin RN) 0900 (Due)2100 (Due) pantoprazole (ProtoNix) 40 mg in sodium chloride (PF) 0.9 % 10 mL injection(Linked Group 1) 40 mg, IntraVENous, Administer over 2 Minutes, Daily before breakfast, First dose on 01/19/24 at 0600, Give only if unable to tolerate po. 0600 (Due) pantoprazole (ProtoNix) EC tablet 40 mg(Linked Group 1) 40 mg, Oral, Daily before breakfast, First dose on 01/19/24 at 0600, Do not crush, chew, or split. 599 (Due) Continuous Medication Order 01/17/2024 01/18/2024 01/19/2024 heparin 25,000 units in dextrose 5% 250mL infusion (premix) (CANCELED) 5-30 Units/kg/hr 81.6 kg (4.08-24.48 mL/hr, rounded to 4.1-24.5 mL/hr), IntraVENous, Continuous, Starting on Sun01/18/24 at 0035, LOW Dose Heparin Weight Based Dosing (CAD/STEMI/NSTEMI/AFIB/ECM O) >>>>Initial dose: 12 units/kg/hr<<<< Subsequent dosing: aPTT < 30 Heparin Full re-bolus Increase infusion by 2 units/kg/hr - notify prescriber; aPTT 30-49.9 Heparin Half re-bolus Increase infusion by 1 unit/kg/hr; aPTT 50-70.9 No bolus No change; aPTT 71-95.9 Hold heparin for 60 min Decrease infusion by 1 unit/kg/hr; aPTT > 95.9 Hold heparin for 60 min Decrease infusion by 2 units/kg/hr - notify prescriber; Check aPTT: 6 hours after initiation and 6 hours after every dose change - every 12 hrs x 1 day after 2 consecutive therapeutic aPTT - daily after every 12 hrs x 1 day is complete. 0043 (New Bag - Provider: Adriana Arechiga RN)0314 (Rate/Dose Verify - Provider: Riya Mckeon RN - Comment: verified by 2 RNs)0644 (Rate/Dose Change - Provider: Riya Mckeon RN)0954 (Rate/Dose Verify - Provider: Chloe Jamison, TONYA)0956 (Stopped - Provider: Chloe Jamison, TONYA - Comment: score caller for heart cath)0957 (Stopped - Provider: Chloe Jamison, RN - Comment: per order)1131 (Held by provider - Provider: Gustavo Azar MD - Reason: Other - Comment: score caller for heart cath)1502 (Unheld by provider - Provider: Maxine Schwartz MD) heparin 25,000 units in dextrose 5% 250mL infusion (premix) 5-30 Units/kg/hr 81.6 kg (4.08-24.48 mL/hr, rounded to 4.1-24.5 mL/hr), IntraVENous, Continuous, Starting on Sun01/18/24 at 1515, LOW Dose Heparin Weight Based Dosing (CAD/STEMI/NSTEMI/AFIB/ECM O) >>>>Initial dose: 12 units/kg/hr<<<< Subsequent dosing: aPTT < 30 Heparin Full re-bolus Increase infusion by 2 units/kg/hr - notify prescriber; aPTT 30-49.9 Heparin Half re-bolus Increase infusion by 1 unit/kg/hr; aPTT 50-70.9 No bolus No change; aPTT 71-95.9 Hold heparin for 60 min Decrease infusion by 1 unit/kg/hr; aPTT > 95.9 Hold heparin for 60 min Decrease infusion by 2 units/kg/hr - notify prescriber; Check aPTT: 6 hours after initiation and 6 hours after every dose change - every 12 hrs x 1 day after 2 consecutive therapeutic aPTT - daily after every 12 hrs x 1 day is complete. 1521 (New Bag - Provider: Maliha Navarro RN)1945 (Handoff - Provider: Nicolle Medellin RN)213 (Handoff - Provider: Ayla Hernandez RN - Comment: continued from [facility])2248 (Rate/Dose Change - Provider: Nedra Salinas RN) nitroGLYCERIN 50 mg in dextrose 5% 250 mL infusion 5-200 mcg/min (1.5-60 mL/hr), IntraVENous, Continuous, Starting on Sun01/18/24 at 2245, If Titrate Infusion? is No: Disregard instructions below. If Titrate infusion? is Yes: If rate LESS than 20 mcg/min: Titrate by 5 mcg/min no faster than every 5 minutes to goal. If rate GREATER than or equal to 20 mcg/min: Titrate by 10 mcg/min no faster than every 5 minutes to goal., Titrate Infusion? Yes, Initial Infusion Dose: 20 mcg/min, Goal of Therapy is: Other, Other Goal: SBP 120 - 140, Contact Provider if: SBP less than 90 mmHg 2238 (New Bag - Provider: Nedra Salinas RN)2300 (Rate/Dose Change - Provider: Nedra Salinas, TONYA)2315 (Rate/Dose Change - Provider: Nedra Salinas, TONYA)2330 (Rate/Dose Change - Provider: Nedra Salinas, TONYA) 0000 (Rate/Dose Change - Provider: Nedra Salinas, TONYA)0015 (Rate/Dose Change - Provider: Nedra Salinas RN) sodium chloride 0.9 % infusion 100 mL/hr, IntraVENous, Continuous, Starting on Sun01/18/24 at 0945, Start now for upcoming heart cath 0956 (New Bag - Provider: Chloe Jamison RN)1202 (Rate/Dose Verify - Provider: Chloe Jamison RN)1402 (Rate/Dose Verify - Provider: Chloe Jamison RN)2142 (Canceled Entry - Provider: Nedra Salinas RN) sodium chloride 0.9 % infusion () 100 mL/hr, IntraVENous, Continuous, Starting on Sun01/18/24 at 1500, For 6 hours, Recovery & On Unit 1500 (Rate/Dose Verify - Provider: Maliha Navarro RN)2137 (Stopped - Provider: Ayla Hernandez RN) PRN Medication Order 01/17/2024 01/18/2024 01/19/2024 Acetaminophen (Tylenol) 650 MG/20.3ML solution 650 mg(Linked Group 2) 650 mg, Oral, Every 6 hours PRN, mild pain (1-3), Starting on Sun01/18/24 at 2149, Give oral liquid if patient prefers or per feeding tube if present. If inadequate response within 60 minutes, proceed to next-line agent for same PRN reason or contact provider if no further options ordered. acetaminophen (Tylenol) tablet 650 mg(Linked Group 2) 650 mg, Oral, Every 6 hours PRN, mild pain (1-3), Starting on Sun01/18/24 at 2149, If inadequate response within 60 minutes, proceed to next-line agent for same PRN reason or contact provider if no further options ordered. fentaNYL (Sublimaze) injection (CANCELED) IntraVENous, As needed, Starting on Sun01/18/24 at 1339, Intraprocedure 1339 (Given - Provider: Nicholas Arriaga MD)1403 (Given - Provider: Nicholas Arriaga MD) heparin injection 2,000 Units 2,000 Units, IntraVENous, As needed, heparin dosing algorithm, Starting on Sun01/18/24 at 0030, Half dose re-bolus based on pharmacy algorithm 0644 (Given - Provider: Riya Mckeon, TONYA)1334 ([facility] Hold - Provider: Automatic Transfer Provider - Reason: Patient not available)1512 ([facility] Unhold - Provider: Automatic Transfer Provider) heparin injection 2,000 Units 2,000 Units, IntraVENous, As needed, heparin dosing algorithm, Starting on Sun01/18/24 at 1459, Half dose re-bolus based on pharmacy algorithm 2249 (Given - Provider: Nedra Salinas RN) heparin injection 4,000 Units 4,000 Units, IntraVENous, As needed, per heparin dosing algorithm, Starting on Sun01/18/24 at 0030, Full dose re-bolus based on pharmacy algorithm 1334 ([facility] Hold - Provider: Automatic Transfer Provider - Reason: Patient not available)1512 ([facility] Unhold - Provider: Automatic Transfer Provider) heparin injection 4,000 Units 4,000 Units, IntraVENous, As needed, per heparin dosing algorithm, Starting on Sun01/18/24 at 1501, Full dose re-bolus based on pharmacy algorithm heparin injection (CANCELED) IntraVENous, As needed, Starting on Sun01/18/24 at 1349, Intraprocedure 1349 (Given - Provider: Nicholas Arriaga MD) iopamidol (Isovue-300) 61 % injection (CANCELED) As needed, Starting on Sun01/18/24 at 1407, Intraprocedure 1407 (Given - Provider: Nicholas Arriaga MD) lidocaine PF (Xylocaine) 1 % injection (CANCELED) As needed, Starting on Sun01/18/24 at 1342, Intraprocedure 1342 (Given - Provider: Nicholas Arriaga MD) midazolam (Versed) injection (CANCELED) IntraVENous, As needed, Starting on Sun01/18/24 at 1339, Intraprocedure 1339 (Given - Provider: Rissa Rich RN) NITROGLYCERIN 100 MCG / ML IN D5W VIAL FOR INTRA-OP/INTRAPROCEDURE USE (CANCELED) As needed, Starting on Sun01/18/24 at 1348, Intraprocedure 1348 (Given - Provider: Maxine Schwartz MD) ondansetron (Zofran) injection 4 mg(Linked Group 3) 4 mg, IntraVENous, Every 6 hours PRN, nausea, vomiting, Starting on Sun01/18/24 at 2149, Give IV if patient is unable to take orally. ondansetron ODT (Zofran-ODT) disintegrating tablet 4 mg(Linked Group 3) 4 mg, Oral, Every 8 hours PRN, nausea, vomiting, Starting on Sun01/18/24 at 2149, Patient should allow tablet to dissolve on tongue. Do not remove from blister pack until just before administering. perflutren protein A microsphere (Optison) 3 mL in sodium chloride (PF) 0.9 % 10 mL IV syringe (COMPLETED) 0-10 mL, IntraVENous, IMG once PRN, other, Suboptimal echo image, Starting on Sun01/18/24 at 0855, For 1 dose, CV Procedural Medications, Administer via slow IVP for suboptimal echocardiogram enhancement. May administer as divided doses to reach optimal image enhancement 0855 (Given - Provider: Finesse Jamison RN) polyethylene glycol (PEG) 3350 (Miralax) packet 17 g 17 g, Oral, Daily PRN, constipation, Starting on Sun01/18/24 at 0232, 1st line for treatment of constipation - give scheduled if no bowel movement in past 24 hours. 1334 (JUL Hold - Provider: Automatic Transfer Provider - Reason: Patient not available)1512 (MAR Unhold - Provider: Automatic Transfer Provider) verapamil (Isoptin) injection (CANCELED) As needed, Starting on Sun01/18/24 at 1348, Intraprocedure 1348 (Given - Provider: Maxine Schwartz MD) Linked Groups Order Group 1: pantoprazole (ProtoNix) EC tablet 40 mgJump to med 40 mg, Oral, Daily before breakfast, First dose on Sun01/19/24 at 0600, Do not crush, chew, or split. Or pantoprazole (ProtoNix) 40 mg in sodium chloride (PF) 0.9 % 10 mL injectionJump to med 40 mg, IntraVENous, Administer over 2 Minutes, Daily before breakfast, First dose on Sun01/19/24 at 0600, Give only if unable to tolerate po. Group 2: acetaminophen (Tylenol) tablet 650 mgJump to med 650 mg, Oral, Every 6 hours PRN, mild pain (1-3), Starting on Sun01/18/24 at 2149, If inadequate response within 60 minutes, proceed to next-line agent for same PRN reason or contact provider if no further options ordered. Or Acetaminophen (Tylenol) 650 MG/20.3ML solution 650 mgJump to med 650 mg, Oral, Every 6 hours PRN, mild pain (1-3), Starting on Sun01/18/24 at 2149, Give oral liquid if patient prefers or per feeding tube if present. If inadequate response within 60 minutes, proceed to next-line agent for same PRN reason or contact provider if no further options ordered. Group 3: ondansetron ODT (Zofran-ODT) disintegrating tablet 4 mgJump to med 4 mg, Oral, Every 8 hours PRN, nausea, vomiting, Starting on Sun01/18/24 at 2149, Patient should allow tablet to dissolve on tongue. Do not remove from blister pack until just before administering. Or ondansetron (Zofran) injection 4 mgJump to med 4 mg, IntraVENous, Every 6 hours PRN, nausea, vomiting, Starting on Sun01/18/24 at 2149, Give IV if patient is unable to take orally. Scheduled Medication Order 01/29/2024 01/30/2024 01/31/2024 acetaminophen (Tylenol) tablet 1,000 mg 1,000 mg, Oral, Every 8 hours, First dose on Sun01/23/24 at 1445, Recovery & On Unit 0528 (Given - Provider: Nicholas Walker RN)1412 (Given - Provider: Veronica Chu RN)2306 (Given - Provider: Lynne Deleon RN) 0601 (Given - Provider: Lynne Deleon RN)1616 (Given - Provider: Veronica Chu RN)2245 (Given - Provider: Nicole Landaverde RN) 0548 (Given - Provider: Nicole Landaverde RN)1355 (Not Given - Provider: Damir Velasquez RN - Reason: Patient/family refused) amiodarone (Pacerone) tablet 400 mg 400 mg, Oral, 2 times daily, First dose on Sun01/28/24 at 0900, For 14 days 0851 (Given - Provider: Veronica Chu RN)2036 (Given - Provider: Lynne Deleon RN) 0904 (Given - Provider: Veronica Chu RN)2118 (Given - Provider: Nicoel Landaverde RN) 0842 (Given - Provider: Damir Velasquez, TONYA) amLODIPine (Norvasc) tablet 2.5 mg 2.5 mg, Oral, Daily, First dose on Sun01/29/24 at 0900 0854 (Given - Provider: Veronica Chu RN) 0904 (Given - Provider: Veronica Chu RN) 0843 (Given - Provider: Damir Velasquez, TONYA) apixaban (Eliquis) tablet 5 mg 5 mg, Oral, 2 times daily, First dose on Sun01/29/24 at 2100, Anticoagulant 2036 (Given - Provider: Lynne Deleon RN) 0904 (Given - Provider: Veronica Chu RN)2118 (Given - Provider: Nicole Landaverde RN) 0842 (Given - Provider: Damir Velasquez RN) aspirin chewable tablet 81 mg (CANCELED) 81 mg, Oral, Daily, First dose on Sun01/24/24 at 0900 0851 (Given - Provider: Veronica Chu RN) clopidogrel (Plavix) tablet 75 mg 75 mg, Oral, Daily, First dose on Sun01/28/24 at 1130 0851 (Given - Provider: Veronica Chu RN) 0904 (Given - Provider: Veronica Chu RN) 0843 (Given - Provider: Damir Velasquez, TONYA) gabapentin (Neurontin) capsule 300 mg 300 mg, Oral, 2 times daily, First dose on Sun01/24/24 at 0900 0851 (Given - Provider: Veronica Chu RN)203 (Given - Provider: Lynne Deleon RN) 0904 (Given - Provider: Veronica Chu RN)211 (Given - Provider: Nicole Landaverde RN) 0842 (Given - Provider: Damir Velasquez, TONYA) heparin injection 5,000 Units (CANCELED) 5,000 Units, SubCUTAneous, 2 times daily, First dose on Sun01/24/24 at 0900 0851 (Given - Provider: Veronica Chu RN) insulin glargine (Lantus) injection 10 Units 10 Units, SubCUTAneous, Every 24 hours, First dose on Sun01/24/24 at 1645, Give Lantus; wait 1 hour then DC insulin drip protocol 1750 (Given - Provider: Veronica Chu RN) 1838 (Given - Provider: Veronica Chu RN) 1543 (Given - Provider: Damir Velasquez, TONYA) Insulin Lispro (Humalog) injection 0-6 Units 0-6 Units, SubCUTAneous, 3 times daily with meals, First dose on Sun01/24/24 at 1700, Low dose Sliding scale: <150 = 0 unit 151-200 = 1 unit 201-250 = 2 units 251-300 = 3 units 301-350 = 4 units 351-400 = 5 units > 400 = 6 units and call endocrine 0800 (Not Given - Provider: Veroncia Chu RN - Reason: Order parameters not met)1445 (Not Given - Provider: Veronica Chu RN - Reason: Order parameters not met - Comment: Patient did not eat lunch)1815 (Given - Provider: Veronica Chu RN) 0800 (Not Given - Provider: Veronica Chu RN - Reason: Order parameters not met)1400 (Not Given - Provider: Veronica Chu RN - Reason: Order parameters not met)1839 (Given - Provider: Veronica Chu RN) 0800 (Not Given - Provider: Damir Velasquez RN - Reason: Order parameters not met)1543 (Given - Provider: Damir Velasquez, TONYA)1700 (Canceled Entry - Provider: Automatic Discharge Provider - Comment: Automatically canceled at discontinue of medication order) levothyroxine (Synthroid, Levoxyl) tablet 100 mcg 100 mcg, Oral, Daily before breakfast, First dose on Sun01/24/24 at 0600, Tube feeding (TF) interaction, obtain physician order to manage, recommend holding TF for 30 minutes before and after dose. 0528 (Given - Provider: Nicholas Walker RN) 06 (Given - Provider: Lynne Deleon RN) 0548 (Given - Provider: Nicole Landaverde RN) Lidocaine 4 % patch 1 patch 1 patch, Topical, Administer over 12 Hours, Daily, First dose on Sun01/23/24 at 1445, Recovery & On Unit, Cut in half and place on both sides of the incision. Patch may remain in place for up to 12 hours in any 24 hour period. 0851 (Medication Applied - Provider: Veronica Chu RN)2050 (Medication Removed - Provider: Lynne Deleon RN) 09 (Medication Applied - Provider: Veronica Chu RN)2103 (Medication Removed - Provider: Nicole Landaverde RN) 0845 (Not Given - Provider: Damir Velasquez RN - Reason: Patient/family refused) metoprolol tartrate (Lopressor) tablet 12.5 mg 12.5 mg, Oral, 2 times daily, First dose on Sun01/25/24 at 0900, Hold for SBP less than 105 and/or MAPs less than 65 and/or HR less than 60 0851 (Given - Provider: Veronica Chu RN)2121 (Given - Provider: Lynne Deleon RN - Comment: bp 133/55 (77) heart rate 71) 0904 (Given - Provider: Veronica Chu RN)2118 (Given - Provider: Nicole Landaverde RN) 0843 (Given - Provider: Damir Velasquez, TONYA) pantoprazole (ProtoNix) EC tablet 40 mg 40 mg, Oral, Daily before breakfast, First dose on Sun01/25/24 at 0600, Do not crush, chew, or split. 0528 (Given - Provider: Nicholas Walker RN) 06 (Given - Provider: Lynne Deleon RN) 0548 (Given - Provider: Nicole Landaverde, RN) polyethylene glycol (PEG) 3350 (Miralax) packet 17 g 17 g, Oral, Daily, First dose on Sun01/23/24 at 1445, Recovery & On Unit, Bowel Regimen - for prevention of constipation. 0900 (Not Given - Provider: Veronica Chu RN - Reason: Patient/family refused) 09 (Not Given - Provider: Veronica Chu RN - Reason: Patient/family refused) 0845 (Given - Provider: Damir Velasquez, RN) rosuvastatin (Crestor) tablet 40 mg 40 mg, Oral, Daily, First dose on Sun01/24/24 at 0900 0851 (Given - Provider: Veronica Chu RN) 0904 (Given - Provider: Veronica Chu RN) 0843 (Given - Provider: Damir Velasquez, RN) senna-docusate sodium (Senokot-S) 8.6-50 MG tablet 2 tablet 2 tablet, Oral, Nightly, First dose (after last modification) on Sun01/29/24 at 2100, Bowel Regimen - for prevention of constipation. 2119 (Given - Provider: Lynne Deleon RN) 2118 (Given - Provider: Nicole Landaverde, TONYA) simethicone (Mylicon) chewable tablet 80 mg (CANCELED) 80 mg, Oral, 4 times daily, First dose on Sun01/24/24 at 0900 0851 (Given - Provider: Veronica Chu RN)1300 (Not Given - Provider: Veronica Chu RN - Reason: Patient/family refused)1750 (Given - Provider: Veronica Chu RN)2037 (Given - Provider: Lynne Deleon RN) 0904 (Given - Provider: Veronica Chu RN) sodium chloride 0.9% (NS) flush 10 mL 10 mL, IntraVENous, Every 12 hours scheduled (2 times per day), First dose on Sun01/23/24 at 2100, Recovery & On Unit 0900 (Given - Provider: Veronica Chu RN)2038 (Given - Provider: Lynne Deleon RN) 09 (Given - Provider: Veronica Chu TONYA)9507 (Given - Provider: Nicole Landaverde, RN) 0878 (Given - Provider: Damir Velasquez, TONYA) PRN Medication Order 01/29/2024 01/30/2024 01/31/2024 calcium gluconate 2000 mg in 100 mL IVPB premix 2,000 mg, IntraVENous, at 50 mL/hr, Administer over 2 Hours, PRN, ionized calcium less than 4.3, Starting on Sun01/23/24 at 1433, Recovery & On Unit, Give 2000 mg for ionized calcium less than 4.3 premix bag dextrose 5 % infusion 100 mL/hr, IntraVENous, PRN, Blood sugar less than 70mg/dL, Starting on Sun01/23/24 at 1433, Recovery & On Unit, Start infusion following administration of dextrose 50% or glucagon. dextrose 50 % solution 12.5 g 12.5 g, IntraVENous, PRN, low blood sugar, Blood glucose less than 70 mg/dL and patient NOT ALERT or NPO., Starting on Sun01/23/24 at 1433, Recovery & On Unit, If patient does not respond within 5 minutes, repeat dose x1. Start D5W at 100 mL/hour until ordering provider can be reached. Repeat blood glucose in 15 minutes. If blood glucose is less than 70 mg/dL, repeat treatment and recheck blood glucose in 15 minutes x2. If using Glucostabilizer, dose as instructed per system. glucagon (human recombinant) injection 1 mg 1 mg, IntraMUSCular, PRN, low blood sugar, Blood glucose less than 70 mg/dL and patient NOT ALERT or NPO and does not have IV access., Starting on Sun01/23/24 at 1433, Recovery & On Unit, After administration, attempt intravenous access and start D5W at 100 mL/hr. Repeat blood glucose in 15 minutes x2 and notify provider. glucose oral gel 15 g 15 g, Oral, As needed, low blood sugar, Starting on Sun01/23/24 at 1433, Recovery & On Unit, If blood glucose less than 50 mg/dL and patient ALERT and NOT NPO, give 2 tubes glucose gel. If blood glucose less than 70 mg/dL and patient ALERT and NOT NPO, give 1 tube glucose gel. Repeat blood glucose in 15 minutes. If blood glucose is less than 70 mg/dL, repeat treatment and recheck blood glucose in 15 minutes x2 and notify provider. ipratropium-albuterol (Duo-Neb) 0.5-2.5 mg/3 mL nebulizer solution 3 mL 3 mL, Nebulization, 3 times daily PRN, wheezing, shortness of breath, Starting on Sun01/23/24 at 1433, Recovery & On Unit magnesium hydroxide (Milk of Magnesia) 400 MG/5ML suspension 30 mL 30 mL, Oral, Daily PRN, constipation, Starting on Sun01/23/24 at 1433, Recovery & On Unit, 1st line for treatment of constipation - give scheduled if no bowel movement in past 24 hours magnesium sulfate IVPB 4,000 mg(Linked Group 1) 4,000 mg, IntraVENous, at 25 mL/hr, Administer over 4 Hours, As needed, Per Magnesium Replacement Protocol, Starting on Sun01/23/24 at 1433, Recovery & On Unit, Mg Lab Replacement Action 1.4-1.6 2 gram IVPB x 1 doses 1.0-1.3 4 gram IVPB x 1 doses Less than 1.0 CALL PHYSICIAN and 4 gram IVPB x 1 doses Infuse at 1 gram/hr. Repeat Mag level next AM. Not for use in Patients with CrCl less than 30 mL/min. magnesium sulfate IVPB premix 2,000 mg(Linked Group 1) 2,000 mg, IntraVENous, at 25 mL/hr, Administer over 2 Hours, As needed, Per Magnesium Replacement Protocol, Starting on Sun01/23/24 at 1433, Recovery & On Unit, Mg Lab Replacement Action 1.4-1.6 2 gram IVPB x 1 doses 1.0-1.3 4 gram IVPB x 1 doses Less than 1.0 CALL PHYSICIAN and 4 gram IVPB x 1 doses Infuse at 1 gram/hr. Repeat Mag level next AM. Not for use in Patients with CrCl less than 30 mL/min. melatonin tablet 3 mg 3 mg, Oral, Nightly PRN, sleep, Starting on Sun01/27/24 at 2101 naloxone (Narcan) injection 0.4 mg 0.4 mg, IntraVENous, Every 5 min PRN, opioid reversal, respiratory depression, Starting on Sun01/23/24 at 1852, +++ For RR <10, pinpoint pupils, over sedation for opioid reversal - MUST notify ad operations coordinator provider immediately after first dose, may give IM or SQ if no IV access +++ oxyCODONE (Roxicodone) immediate release tablet 10 mg(Linked Group 2) 10 mg, Oral, Every 6 hours PRN, severe pain (7-10), Starting on Sun01/28/24 at 1126 oxyCODONE (Roxicodone) immediate release tablet 5 mg(Linked Group 2) 5 mg, Oral, Every 6 hours PRN, moderate pain (4-6), Starting on Sun01/28/24 at 1126 sodium chloride 0.9 % infusion 5-250 mL/hr, IntraVENous, PRN, if patient receiving piggyback infusions and maintenance fluids are not ordered OR KVO fluids to protect IV site / prevent frequent line interruptions/ long duration, Starting on Sun01/23/24 at 1433, Recovery & On Unit, For piggyback infusion, administer at same rate as piggyback for a total of 25 mL. Enter 25 mL into dose field and piggyback rate into rate field of order. If piggyback is infusing at a rate less than 100 mL/hr, enter 25 mL into dose field and 100 mL/hr into rate field of order. For KVO fluids, enter rate of 20 mL/hr or less into rate field of order. sodium chloride 0.9% (NS) flush 10 mL 10 mL, IntraVENous, PRN, line care, Starting on Sun01/23/24 at 1433, Recovery & On Unit, After every IV line use Linked Groups Order Group 1: magnesium sulfate IVPB premix 2,000 mgJump to med 2,000 mg, IntraVENous, at 25 mL/hr, Administer over 2 Hours, As needed, Per Magnesium Replacement Protocol, Starting on Sun01/23/24 at 1433, Recovery & On Unit, Mg Lab Replacement Action 1.4-1.6 2 gram IVPB x 1 doses 1.0-1.3 4 gram IVPB x 1 doses Less than 1.0 CALL PHYSICIAN and 4 gram IVPB x 1 doses Infuse at 1 gram/hr. Repeat Mag level next AM. Not for use in Patients with CrCl less than 30 mL/min. Or magnesium sulfate IVPB 4,000 mgJump to med 4,000 mg, IntraVENous, at 25 mL/hr, Administer over 4 Hours, As needed, Per Magnesium Replacement Protocol, Starting on Sun01/23/24 at 1433, Recovery & On Unit, Mg Lab Replacement Action 1.4-1.6 2 gram IVPB x 1 doses 1.0-1.3 4 gram IVPB x 1 doses Less than 1.0 CALL PHYSICIAN and 4 gram IVPB x 1 doses Infuse at 1 gram/hr. Repeat Mag level next AM. Not for use in Patients with CrCl less than 30 mL/min. Group 2: oxyCODONE (Roxicodone) immediate release tablet 5 mgJump to med 5 mg, Oral, Every 6 hours PRN, moderate pain (4-6), Starting on Sun01/28/24 at 1126 Or oxyCODONE (Roxicodone) immediate release tablet 10 mgJump to med 10 mg, Oral, Every 6 hours PRN, severe pain (7-10), Starting on Sun01/28/24 at 1126 FOR RECORDS PERTAINING TO PATIENTS WHO ARE OR HAVE BEEN ENROLLED IN A CHEMICAL DEPENDENCY/SUBSTANCEABUSE PROGRAM, SOME INFORMATION MAY BE OMITTED. This clinical summary was aggregated from multiple sources. Caution should be exercised in using it in the provision of clinical care. This summary normalizes information from multiple sources, and as a consequence, information in this document may materially change the coding, format and clinical context of patient data. In addition, data may be omitted in some cases. CLINICAL DECISIONS SHOULD BE BASED ON THE PRIMARY CLINICAL RECORDS. [facility]. provides no warranty or guarantee of the accuracy or completeness of information in this document.
[2024-11-08] MEDS: Lidocaine 1% (20 ml mdv) 20 ML Vial 10 ML INFILT (16:09)
--- NOTE | 2024-11-08 16:52 | ED.VIS.FALL ---
HPI HPI - Fall History of Present Illness Chief Complaint: Fall Informant: patient Narrative Narrative: 79-year-old male presenting to the emergency room following a fall. Patient was on his way into a store when he tripped and struck the ground with his knees and his face. He denies any loss of consciousness. He denies neck or back pain. He notes abrasions to the left knee. He notes abrasion to the forehead and laceration. He notes his last tetanus was about 5 years ago. Patient notes that he lost his just under a year ago to an intracranial hemorrhage. 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 He still drives and is able to do his ADLs. Tetanus Immunization: <5 years [facility] Medical History Chronic kidney disease (CKD) Coronary bypass graft mechanical complication Prediabetes Allergy/AdvReac Type Severity Reaction Status Date / Time bee venom protein (honey Allergy Intermediate Swelling Verified 11/08/24 14:42 bee) (bee sting) Surgical History History of open heart surgery Social History Smoking Status: Never smoker ROS ROS ED Constitutional Constitutional ED: Denies chills or weight loss Eyes Eyes: Denies change in vision or diplopia ENT ENT ED: Denies ear pain, rhinorrhea or sore throat Cardiovascular Cardiovascular: Denies chest pain, orthopnea, palpitations or racing heartbeat Respiratory/Chest Respiratory/Chest: Denies cough, dyspnea or orthopnea Gastrointestinal Gastrointestinal: Denies abdominal pain, diarrhea, nausea or vomiting Genitourinary Genitourinary ED: Denies dysuria, hematuria or urinary frequency Musculoskeletal Musculoskeletal: Denies arthralgias, back pain, myalgias or neck pain Integumentary Reports Abrasions and other Details: Forehead laceration ; Denies abscess or rash Neurologic Neurologic: Denies headache(s), paresthesias or weakness Psychiatric Psychiatric: Denies anxiety, depression, suicidal ideation or suicidal thoughts Endocrine Endocrinology: Denies polydipsia, polyphagia or polyuria Allergic/Immunologic Allergic/Immunologic ED: Denies mouth swelling, tongue swelling or urticaria EXAM Physical Exam Const Vital Signs: 11/08/24 14:03 11/08/24 14:45 11/08/24 15:02 Temperature 97.7 F L Temperature Source Oral Pulse Rate 55 L 55 L 53 L Respiratory Rate 16 18 16 Blood Pressure 140/62 H 128/68 H 127/62 H Blood Pressure Mean 88 88 83 Pulse Ox 98 100 99 Oxygen Delivery Method Room Air Room Air Room Air 11/08/24 16:00 Temperature Temperature Source Pulse Rate Respiratory Rate Blood Pressure 146/74 H Blood Pressure Mean 98 Pulse Ox Oxygen Delivery Method Positive well nourished and well developed General Appearance ED: well developed and NAD HEENT Reports normocephalic and moist mucous membranes HEENT Narrative: There is a large area of abrasion across the forehead. In the center of the abrasions is a complex stellate laceration measuring about 4 cm in total length. The center of the laceration is macerated skin. There is no palpable bony depression. No obvious orbital trauma. Eyes PERRL and EOMs intact bilaterally Neck full ROM, no lymphadenopathy, supple and no JVD General: Negative for tenderness Resp normal respiratory effort and clear to auscultation bilaterally Cardio regular rate, regular rhythm and no murmurs GI normal to inspection, nondistended, normoactive bowel sounds and non-tender Palpation: soft Back/Spine no CVA tenderness and normal ROM Extremity Extremity Narrative: No deformities no significant tenderness or swelling General Extremety ED: Negative for edema General Extremity: Negative for edema Neuro oriented x3 and CN's II-XII intact bilaterally Sensorium / Orientation: alert Motor Exam: strength 5/5 throughout Psych mental status grossly normal Mood & Affect: Negative for depressed or tearful Skin no rashes or lesions noted and no wounds Skin Narrative: Left knee abrasion forehead abrasion with laceration MDM MDM MDM Narrative Medical decision making narrative: Differential diagnosis includes but not limited to abrasion laceration skull fracture knee fracture ligamentous injury intracranial hemorrhage CT of the brain was obtained which was read by radiology reviewed by myself. This does not demonstrate an obvious intracranial hemorrhage or fracture. Abrasions were cleansed and dressed by nursing. The laceration was locally anesthetized using 1% lidocaine and closed using 4-0 Ethilon sutures. Local wound care discussed with patient. Stitches will need to be removed in 5 to 7 days. History & Record Review Discussion w/independent historian: Patient Radiography Diagnostic Testing: Clinical Impression(s) from Imaging Studies Brain CT 11/08/24 14:00 IMPRESSION: No acute intracranial process. Reading Location: [facility] Discharge Plan Triage Chief Complaint: Fall ED Provider: Isidoro Hernandez Dx/Rx/DC Orders Clinical Impression: Complex laceration of face, Head injury, Fall, Abrasion of knee Instructions: ED Head Injury (Adult), ED Laceration, All Closures Primary Care Provider: Glenn Nicolas Referrals: Glenn Nicolas DO [Primary Care Provider] - 7 Days for suture removal Activity Restrictions/Additional Instructions: I would apply antibiotic ointment to the wounds once a day. If you have worsening/persistent headache please return to emergency or follow-up with primary care. Stitches should be removed in 5 to 7 days so next Sunday would be appropriate. Soap and water to cleanse your wounds is appropriate. Print Language: Japanese Disposition Disposition: Home, Self Care
[2024-11-08 17:00] VITALS: BP 154/74; PULSE 56; RESP 12; O2SAT 95
[2024-11-08 17:19] VITALS: BP 154/74; PULSE 56; RESP 16; TEMP 37.1; O2SAT 95
== END 2024-11-08 17:20 | disposition home or self-care (01) ==
PROVIDERS: Emergency Provider Emergency Medicine; PCP Family Medicine; Visit Provider Emergency Medicine
DX: S01.81XA Laceration without foreign body of other part of head, initial encounter (principal); S80.212A Abrasion, left knee, initial encounter; W01.0XXA Fall on same level from slipping, tripping and stumbling without subsequent striking against object, initial encounter
CPT/HCPCS: 12013; 70450; 99283